=== PATIENT | female | born 1950 | race Caucasian/White ===

== ENCOUNTER → 2016-08-07 | Outpatient (CLI) | payer MEDICARE, OTHER ==
[2016-08-07 12:10] VITALS: BP 117/69; PULSE 80; RESP 16; TEMP 98.1
--- NOTE | 2016-08-08 11:53 | P.PN ---
Subjective This is follow-up visit for this patient with a history of severe and chronic low back pain secondary to lumbar degenerative disc disease lumbar facet arthropathy, we have done interventional pain management injection, agnostic medial branch block which was positive, and is currently on pain medications 1-MS Contin 15 mg every 8 hours 2-Percocet 5/325 every 6 hours 3- Neurontin 400 mg every 8 hours Patient denies any side effects of the medication, denies excessive drowsiness or sleepiness, denies suicidal ideation, and reports that the current pain medication is NOT helping To control the pain and improve activity of daily living the VAS /10 without the medications ,and it drope to /10 with the medication Physical Examinations : 1-Constitutiona : Cooperative , not in acute distress . 2-HEENT : nech ; supple , no Lymphadenopathy , no Thyromegaly , normal thyroid size . eyes : no ptosis , no icterus, no photophobia . ENT : normal of hearing , normal oropharynx , no Thrush . 3- Respiratory : Chest clear to auscultations Bilaterally , no wheezing , no Rhonchi . 4- Cardiovascular : regular rate and rhythem , S1 , S2 , no S3 , no S4. 5- Gastrointestinal : abdomen soft no tenderness , bowel sounds positive all four quadrents , no organomegally . 6- Genitourinary : Defferred . 7- neurologic : Cranial nerve II to XII intact , no focal neurological deffecit . 8-psychatric : alert , oriented X 3 , appropriate affect , intact judgment and insight . 9-Lymphatic : no Lymphadenopathy . 10- musculoskeltal : exams of the cervical spine = motor strength in the upper extremity within normal limits exams of the Lumber spine = motor strength lower extremities ,thigh and legs .5/5 deep tendon reflexes : normal Knee Jerk , normal ankle Jerk . lumber facet Loading Test positive strait leg raising test positive at 30 degree , RT ,LT , Fabere test positive RT and positive LT . Range of motion: Range of motion in flexion of the lumbar spine 30 degrees Range of motion range of motion of extension of the lumbar spine 10 Assessment and plan = - Chronic low back pain secondary to lumbar degenerative disc disease , lumbar spondylosis with facet arthropathy without myelopathy , - chronic and current use of high-risk medication (Opioids). The patient was counseled about risk of opioid use, psychological risk associated with opioids and was orally counseled to not overuse , divert,or sell dictations to take medications as prescribed only , and to restore medication in safe location , and the patient counseled against driving while using narcotic medications, and also not to use alcohol or any illicit recreational drugs, the patient's verbalized understanding that the lack of compliance will result in failure to renew narcotic prescription and possible discharge from the clinic - diagnoses, prognosis, and treatment options including but not limited to physical therapy, surgical interventions, interventional therapies , and medication management including narcotics and adjuvant medication were discussed with the patient and all The questions answered -medication management =1-MS Contin 15 mg every 8 hours dispense 90 with 1 refill 2- Percocet 5/325 every 6 hours dispense 120 with one refill 3-Neurontin 400 mg every 8 hours dispense 90 with 1 refill -procedure= scheduled patient to have radiofrequency ablation of the medial branch lumbar area L3-4/L4 5/L5-S1 we will start with the right side then we will do the left side later on Objective - Vital Signs Vital signs: Vital Signs Temp 98.1 F 08/07/16 12:04 Pulse 80 08/07/16 12:04 Resp 16 08/07/16 12:04 BP 117/69 08/07/16 12:04 Pulse Ox 98 08/07/16 12:04 Intake & Output 08/07/16 08/08/16 08/08/16 18:59 06:59 18:59 Weight 52.163 kg
== END | disposition home or self-care (01) ==
LOC: PNWHC3 11:30
PROVIDERS: ATTEND Specialist
DX: M51.36 Other intervertebral disc degeneration, lumbar region (principal); M47.816 Spondylosis without myelopathy or radiculopathy, lumbar region; M46.96 Unspecified inflammatory spondylopathy, lumbar region; Z79.891 Long term (current) use of opiate analgesic
CPT/HCPCS: 99211

== ENCOUNTER 2016-09-19 17:20 | Emergency (ER) | payer MEDICARE, OTHER ==
[2016-09-19 17:53] VITALS: BP 119/79; PULSE 99; RESP 18; TEMP 97.3
[2016-09-19] MEDS ORDERED: HYDROmorphone 1 MG/ML 1 ML SYRINGE IM STA (18:01)
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
== END 2016-09-19 18:33 | disposition home or self-care (01) ==
LOC: EC 17:20
DX: G89.29 Other chronic pain (principal); M54.5 Low back pain; M79.7 Fibromyalgia; E78.5 Hyperlipidemia, unspecified; M06.9 Rheumatoid arthritis, unspecified; M19.90 Unspecified osteoarthritis, unspecified site; D64.9 Anemia, unspecified; F41.9 Anxiety disorder, unspecified; F32.9 Major depressive disorder, single episode, unspecified; F41.0 Panic disorder [episodic paroxysmal anxiety]; Z85.3 Personal history of malignant neoplasm of breast; Z87.891 Personal history of nicotine dependence; Z79.899 Other long term (current) drug therapy; Z88.2 Allergy status to sulfonamides; Z91.040 Latex allergy status; Z88.1 Allergy status to other antibiotic agents; Z91.048 Other nonmedicinal substance allergy status
CPT/HCPCS: 99283; 96372; J1170

== ENCOUNTER → 2016-10-02 | Outpatient (CLI) | payer MEDICARE, OTHER ==
--- NOTE | 2016-10-02 12:33 | P.PN ---
Progress Note - Text Patient returns for followup for chronic back pain with radiation to both legs, although mild. Patient was recently supposed to undergo right lumbar RFA recently but got sick and it has been rescheduled to October. Patient continues on Neurontin, MSContin and Percocet medications for pain with good relief. Patient denies adverse drug effects from medications. Today, pt denies new- onset weakness, bowel/bladder incontinence, or any other signs or symptoms of cauda equina syndrome. There are no signs of acute intoxication, and no indications of medication diversion or overuse. In addition to above, 13-point review of systems is also negative for chest pain , shortness of breath, changes in vision, changes in hearing, new onset weakness , abdominal pain, diarrhea, extreme fatigue, malaise, fever, skin changes, homicidal or suicidal ideation, or bowel or bladder incontinence. Vital Signs: Reviewed in EMR Gen: WDWN, AAOx3, NAD HEENT: NCAT, EOMI, hearing grossly normal Pulm: resp unlabored Abd: soft, NT, ND Neck: supple, trachea midline ROM in flexion lumbar spine: reduced ROM in extension lumbar spine: reduced Lumbar paravertebral tenderness: + Facet loading: + bilateral, R > L SI joint tenderness: + R > L Lakhwinder's test: + R > L Straight leg raise: neg Lower extremity: decreased ROM dorsiflexion/plantarflexion strength, hip flexion/extension, and knee flexion/extension secondary to pain Neuro: CN II-XII grossly intact, muscle strength lower extremities PRESERVED Imaging: Reviewed in EMR Assessment: 1. lumbar spondylosis without myelopathy 2. SI joint dysfunction 3. chronic pain syndrome Plan: 1. Explanation: Opioid and psychological risk scores were reviewed. Diagnoses , prognoses, and multiple treatment options including but not limited to physical therapy, interventional therapies, adjuvant medical therapies, narcotic medication therapies, and surgery were discussed with the patient and all questions were answered to the patient's satisfaction. 2. Opioid agreement: Patient has previously signed narcotic agreement, and was orally counseled to not overuse, abuse, divert, or cell medications, and to take them as prescribed by only 1 healthcare provider. The patient was also counseled to store opioid medications in a safe and preferably locked location. Patient was also counseled against driving or operating heavy equipment while using narcotic medications and also to not use alcohol or any illicit or recreational drugs. The patient verbalized understanding that lack of compliance with any of the above and likely result in failure to renew narcotic prescriptions, possible discharge from the clinic, and possible legal ramifications thereafter if indicated. 3. Counseling: The patient was counseled extensively on BODY MASS INDEX, EXERCISE. Specifically, the patient was instructed regarding the importance of weight control and exercise in the context of both chronic pain and overall health. 4. Procedures: R lumbar RFA as scheduled 5. Consultations: None 6. Investigations: None 7. Medications: MSContin 15 mg #90 with one refill, Percocet 5/325 #120 with one refill, Neurontin 400 mg #90 with two refills 8. Disposition: f/u for procedure as scheduled PQRS measures: 1-Patient's medications are documented in the chart. 2-Tobacco use is negative 3-Patient has not had a pneumococcal vaccine. 4-Advanced care planning discussed, patient unable to give. 5-Opioid contract signed with the patient. 6-Pain positive, follow-up visit or procedure scheduled 7-Patient's blood pressure measured and documented, and patient will follow up with the primary care due to hypertension. 8-Patient's weight was measured, and body mass index within the normal limits 9-Patient WAS NOT identified as an unhealthy alcohol user.
[2016-10-02 13:25] VITALS: BP 142/88; PULSE 69; RESP 16; TEMP 98.2
== END | disposition home or self-care (01) ==
LOC: PNWHC3 11:59
PROVIDERS: ATTEND Anesthesiology
DX: M47.816 Spondylosis without myelopathy or radiculopathy, lumbar region (principal); G89.4 Chronic pain syndrome; Z79.899 Other long term (current) drug therapy; Z79.891 Long term (current) use of opiate analgesic
CPT/HCPCS: 80307; G0463; 80373; 99211

== ENCOUNTER 2016-10-18 09:07 | Day surgery (SDC) | payer MEDICARE, OTHER ==
[2016-10-16 15:56] VITALS: BMI 20.5
[~2016-10-18 09:07] MED LIST: LACTATED RINGERS 1,000 ML IV ONE
[2016-10-18 09:39] VITALS: TEMP 97.9
[2016-10-18] MEDS ORDERED: LIDOCAINE 1% 20 ML VIAL (10MG/ML) FOR IV START INTRADERMA ONE (09:40)
[2016-10-18] MEDS ORDERED: fentaNYL (PF) 50 MCG/ML 2 ML AMP ONE (10:14)
[2016-10-18] MEDS ORDERED: MIDAZOLAM 2 MG/2 ML VIAL ONE (10:14)
[2016-10-18] MEDS ORDERED: TRIAMCINOLONE ACETONIDE 40 MG/ML 1 ML VIAL ONE (10:14)
[2016-10-18] MEDS ORDERED: BUPIVACAINE (PF) 0.5% 30 ML VIAL ONE (10:14)
--- NOTE | 2016-10-18 10:42 | FL ---
EXAMINATION TYPE: FL guided pain mgmt statistic DATE OF EXAM: 10/18/2016 10:35 AM HISTORY: Pain RF lumbar R side 3 levels, 8sec fl time
--- NOTE | 2016-10-18 10:43 | P.PCN ---
Date of Procedure: 10/18/16 Procedure(s) Performed: PREOPERATIVE DIAGNOSIS: 1-Lumbar Spondylosis with Facet Arthropathy without myelopathy. POSTOPERATIVE DIAGNOSIS: 1- Lumbar Spondylosis with Facet Arthropathy without myelopathy. PROCEDURES : Right Radiofrequency thermocoagulation L2-3 ,, L3-L4, L4-L5, medial branch, with fluoroscopic guidance ANESTHESIA: IV sedation with versed 2 mg and fentaneyl 100 mcg and local infiltration with lidocaine 1% 6 ml EBL: Minimal PROCEDURE INDICATION: The patient with low back pain secondary to lumbar facet arthropathy who had more than 50% relief of her pain with previous diagnostic lumbar medial branch block with bupivacaine. PROCEDURE DESCRIPTION / TECHNIQUE: The patient was seen and identified in the preoperative area. Risks, benefits, complications, including but not limited to risk of infection ,bleeding , allergic reactions to the medications and no complete pain releife , and alternatives were discussed with the patient, the patient agreed to proceed with the procedure and signed the consent. IV was started. Vital signs remained stable throughout the procedure. Patient was taken to the OR and time out was completed. The patient was placed in the prone position on the procedure table. The lumber area was prepped and draped in the usual sterile fashion. . Vital signs were closely monitored during the procedure .IV sedation was used during the procedure to decrease patients anxiety. Using AP and then oblique fluoroscopy, the ``eye of the Duane dog corresponding to the connection between the superior and transverse articular processes of right L2 , L3, L4, were identified, marked, and localized with 1 % lidocaine. Subsequently, a 18 [id number] radiofrequency cannula with a 10- mm active tip was advanced guided by fluoroscopy to each of the ``eyes of the Duane dog at right L2 , L3, L4,. Each site then underwent sensory testing at 50 Hz and 0 to 1 volt and motor testing at 2.5 Hz and 0 to 3 volt with local stimulation, but no radicular symptoms down the legs. Thereafter the right L2-3 , L3-4, L4-5, sites underwent radiofrequency thermocoagulation at 80 degrees celsius for 90 seconds after injecting 0.5 ml of PF lidocaine 1%. then After the thermocoagulation done , 1 ml of the block solution containing Kenalog 40 mg and 3 ml of marain 0.5% was injected at the right L2 -3 , L3-4 , L4-5 ,, levels after negative aspiration of CSF and blood and with no paresthesias. Cannulas were retracted while injecting lidocaine 1% until the needle is out. At the end of the procedure, the skin was cleansed and bandages were applied. COMPLICATIONS: No acute complications. DISPOSITION / PLANS: The patient was placed in a supine position and transferred to the recovery area in a stable condition for observation and was discharged from the recovery room after meeting discharge criteria. Home discharge instructions given to the patient by the staff. The patient was reexamined prior to discharge. The patient will schedule a follow up in the clinic in 2-4 weeks. We will do the radiofrequency on the left side at L2-3/ L3 - 4 /L4 5
[2016-10-18] MEDS ORDERED: LACTATED RINGERS 1,000 ML IV ONE ×2 (10:48)
[2016-10-18 11:08] VITALS: BP 130/74; PULSE 58; RESP 16
[2016-10-18] MEDS ORDERED: IV FLUID CONTINUATION 1,000 ML IV ONE (11:25)
== END 2016-10-18 11:31 | disposition home or self-care (01) ==
LOC: ORPAIN 09:07
PROVIDERS: ATTEND Specialist
DX: M47.816 Spondylosis without myelopathy or radiculopathy, lumbar region (principal); M46.96 Unspecified inflammatory spondylopathy, lumbar region; Z88.2 Allergy status to sulfonamides; Z88.1 Allergy status to other antibiotic agents; Z91.040 Latex allergy status
CPT/HCPCS: 64635; 64636; 99152; J2250; J3301; J3010

== ENCOUNTER 2016-12-13 09:01 | Day surgery (SDC) | payer MEDICARE, OTHER ==
[2016-12-08 16:08] VITALS: BMI 20.5
[2016-12-13] MEDS ORDERED: LACTATED RINGERS 1,000 ML IV ONE (09:31)
[2016-12-13 09:32] VITALS: TEMP 98.2
[2016-12-13] MEDS ORDERED: LIDOCAINE 1% 20 ML VIAL (10MG/ML) FOR IV START INTRADERMA ONE (09:32)
[2016-12-13] MEDS ORDERED: TRIAMCINOLONE ACETONIDE 40 MG/ML 1 ML VIAL ONE (09:43)
[2016-12-13] MEDS ORDERED: fentaNYL (PF) 50 MCG/ML 2 ML AMP ONE (09:43)
[2016-12-13] MEDS ORDERED: MIDAZOLAM 2 MG/2 ML VIAL ONE (09:43)
--- NOTE | 2016-12-13 10:27 | P.PCN ---
Date of Procedure: 12/13/16 Preoperative Diagnosis: Postoperative Diagnosis: Procedure(s) Performed: Implants: Surgeon: David Doran Pathology: none sent Condition: stable Disposition: PACU Indications for Procedure: Operative Findings: Description of Procedure: PREOPERATIVE DIAGNOSIS: Lumbar spondylosis without myelopathy and facet arthropathy POSTOPERATIVE DIAGNOSIS: Lumbar spondylosis without myelopathy and facet arthropathy PROCEDURES: Left Radiofrequency thermocoagulation, L2, L3, and L4 medial branch , with fluoroscopic guidance. ANESTHESIA: 1% lidocaine plain; Conscious sedation with versed/fentanyl EBL: Minimal PROCEDURE INDICATION: The patient with low back pain secondary to lumbar arthropathy who had more than 50% relief of pain with previous diagnostic lumbar medial branch block with bupivacaine. Patient presents for RFA today; no use of blood thinners. PROCEDURE DESCRIPTION / TECHNIQUE: The patient was seen and identified in the preoperative area. Risks, benefits, complications, and alternatives were discussed with the patient (including but not limited to incomplete pain relief , bleeding, infection, nerve damage, and allergies to medications), the patient agreed to proceed with the procedure and signed the consent after all questions were answered. Patient was taken to the OR and time out was completed to verify proper patient , position, laterality of pain, and allergies. Pt was placed in the prone position. IV was started. Vital signs remained stable throughout the procedure. A pillow was placed under the patients chest to decrease lordosis. The lumbosacral area was prepped and draped in the usual sterile fashion. Vital signs were closely monitored during the procedure. Conscious sedation was used during the procedure to decrease patients anxiety. Using AP and then oblique fluoroscopy, the eye of the Duane dog corresponding to the connection between the superior and transverse articular processes of left L3, L4 and L5 vertebral bodies were identified, marked, and localized with 1% lidocaine. Subsequently, a 20 gauge, 100-mm radiofrequency cannula with a 10-mm active tip was advanced guided by fluoroscopy to each of the eyes of the Duane dog at left L2, L3, and L4 medial branches. Each site then underwent sensory testing at 50 Hz and 0 to 1 volt and motor testing at 2 Hz and 0 to 3 volt with local stimulation, but no radicular symptoms down the legs. Thereafter the left L2, L3, and L4 medial branches medial branch sites underwent radiofrequency thermocoagulation at 80 degrees Celsius for 90 seconds after injecting 0.5 ml of PF lidocaine 1%. After thermocoagulation, 1 ml of the block solution containing Kenalog 40 mg and 2 mL of preservative-free normal saline was injected at the left L2, L3, and L4 medial branch levels after negative aspiration of CSF and blood and with no paresthesias. Cannulas were retracted while injecting lidocaine 1% until the needles were removed. At the end of the procedure, the skin was cleansed and bandages were applied. COMPLICATIONS: No acute complications. DISPOSITION / PLANS: The patient was placed in a supine position and transferred to the recovery area in a stable condition for observation and was discharged from the recovery room after meeting discharge criteria. Home discharge instructions given to the patient by the staff. The patient was reexamined prior to discharge and there were no issues. Patient will follow up in the clinic in approximately 4 weeks for further evaluation.
[2016-12-13] MEDS ORDERED: IV FLUID CONTINUATION 1,000 ML IV ONE (10:33)
[2016-12-13 10:37] VITALS: RESP 18
--- NOTE | 2016-12-13 10:40 | FL ---
EXAMINATION TYPE: FL guided pain mgmt statistic DATE OF EXAM: 12/13/2016 COMPARISON: NONE HISTORY: LEFT LUMBAR RAD FREQ TECHNIQUE: Fluoroscopy. FINDINGS: LEFT LUMBAR RAD FREQ. 44 SEC FL TIME. 4 IMAGES. IMPRESSION: As Above.
[2016-12-13 10:52] VITALS: BP 122/74; PULSE 74
== END 2016-12-13 11:05 | disposition home or self-care (01) ==
LOC: ORPAIN 09:01
PROVIDERS: ATTEND Anesthesiology
DX: G89.29 Other chronic pain (principal); M47.816 Spondylosis without myelopathy or radiculopathy, lumbar region; M46.96 Unspecified inflammatory spondylopathy, lumbar region; I10 Essential (primary) hypertension; E78.5 Hyperlipidemia, unspecified; Z79.82 Long term (current) use of aspirin; Z79.891 Long term (current) use of opiate analgesic; Z79.899 Other long term (current) drug therapy; Z88.2 Allergy status to sulfonamides; Z88.1 Allergy status to other antibiotic agents; Z91.040 Latex allergy status
CPT/HCPCS: 64635; 64636 ×2; 99152; 99153; J2250; J3301; J3010

== ENCOUNTER → 2017-01-10 | Outpatient (CLI) | payer MEDICARE, OTHER ==
[2017-01-10 11:58] VITALS: RESP 18; TEMP 97.7
--- NOTE | 2017-01-10 12:04 | P.PN ---
Progress Note - Text Patient returns for followup for chronic back and mid-back pain with radiation to both legs, although mild. Patient recently underwent bilateral lumbar RFA with good relief of back pain but is now complaining of pain in her mid-back that "feels similar" to low back pain. Patient continues on Neurontin, MSContin and Percocet medications for pain with good relief but last UDS positive only for tramadol and patient states that she ran out of her pills on Sunday, January 06, because she took extra narcotics secondary to an ear infection. Patient denies adverse drug effects from medications. Today, pt denies new-onset weakness, bowel/bladder incontinence, or any other signs or symptoms of cauda equina syndrome. There are no signs of acute intoxication, and no indications of medication diversion. In addition to above, 13-point review of systems is also negative for chest pain , shortness of breath, changes in vision, changes in hearing, new onset weakness , abdominal pain, diarrhea, extreme fatigue, malaise, fever, skin changes, homicidal or suicidal ideation, or bowel or bladder incontinence. Vital Signs: Reviewed in EMR Gen: WDWN, AAOx3, NAD HEENT: NCAT, EOMI, hearing grossly normal Pulm: resp unlabored Abd: soft, NT, ND Neck: supple, trachea midline TTP thoracic spine paravertebral +thoracic facet loading worst in mid-thoracic spine Neuro: CN II-XII grossly intact, muscle strength lower extremities PRESERVED Imaging: Reviewed in EMR Assessment: 1. lumbar spondylosis without myelopathy 2. SI joint dysfunction 3. chronic pain syndrome 4. thoracic spondylosis Plan: 1. Explanation: Opioid and psychological risk scores were reviewed. Diagnoses , prognoses, and multiple treatment options including but not limited to physical therapy, interventional therapies, adjuvant medical therapies, narcotic medication therapies, and surgery were discussed with the patient and all questions were answered to the patient's satisfaction. 2. Opioid agreement: Patient has previously signed narcotic agreement, and was orally counseled to not overuse, abuse, divert, or cell medications, and to take them as prescribed by only 1 healthcare provider. The patient was also counseled to store opioid medications in a safe and preferably locked location. Patient was also counseled against driving or operating heavy equipment while using narcotic medications and also to not use alcohol or any illicit or recreational drugs. The patient verbalized understanding that lack of compliance with any of the above and likely result in failure to renew narcotic prescriptions, possible discharge from the clinic, and possible legal ramifications thereafter if indicated. 3. Counseling: The patient was counseled extensively on BODY MASS INDEX, EXERCISE. Specifically, the patient was instructed regarding the importance of weight control and exercise in the context of both chronic pain and overall health. 4. Procedures: none for now 5. Consultations: None 6. Investigations: MRI thoracic spine 7. Medications: MSContin 15 mg #90 with one refill, Percocet 5/325 #120 with one refill, Neurontin 400 mg #90 with two refills 8. Disposition: f/u for re-eval in 8 weeks. Please UDS at next visit. I told patient very clearly that, if she runs out of medications early again or if she has any more equivocal UDS results, we will no longer be able to prescribe narcotics any longer. She verbalized understanding. PQRS measures: 1-Patient's medications are documented in the chart. 2-Tobacco use is negative 3-Patient has not had a pneumococcal vaccine. 4-Advanced care planning discussed, patient unable to give. 5-Opioid contract signed with the patient. 6-Pain positive, follow-up visit or procedure scheduled 7-Patient's blood pressure measured and documented, and patient will follow up with the primary care due to hypertension. 8-Patient's weight was measured, and body mass index within the normal limits 9-Patient WAS NOT identified as an unhealthy alcohol user.
== END ==
LOC: PNWHC3 11:15
PROVIDERS: ATTEND Anesthesiology
DX: M47.816 Spondylosis without myelopathy or radiculopathy, lumbar region (principal); M53.3 Sacrococcygeal disorders, not elsewhere classified; M47.814 Spondylosis without myelopathy or radiculopathy, thoracic region; Z79.891 Long term (current) use of opiate analgesic; Z79.899 Other long term (current) drug therapy
CPT/HCPCS: 99211

== ENCOUNTER 2017-03-02 12:45 | Emergency (ER) | payer MEDICARE, OTHER ==
--- NOTE | 2017-03-02 13:05 | ED ---
General Adult HPI - General Chief complaint: Fall Stated complaint: Fall-Head Injury Time Seen by Provider: 03/02/17 12:54 Source: patient, RN notes reviewed Mode of arrival: ambulatory Limitations: no limitations - History of Present Illness Initial comments: Patient 67-year-old female who presents emergency room today with a chief complaint of a fall that occurred approximate hour ago. She does admit that she was walking into her house when a different pathway over some sand and believes that her flip-flop got caught and she fell down onto the left knee and also hit the right side of her face and head. She states she did not lose consciousness. She has mid to headache. Does admit some mild neck pain. Patient also admits to some left knee pain with some superficial abrasions over the anterior knee and right hand. She denies any other complaints or associated symptoms at this time. Patient denies any recent fever, chills, shortness of breath, chest pain, abdominal pain, nausea or vomiting, numbness or tingling, dysuria or hematuria, constipation or diarrhea, visual changes, or any other complaints. - Related Data Home Medications Medication Instructions Recorded Confirmed Folic Acid 1 mg PO DAILY 10/17/13 03/02/17 Atorvastatin [Lipitor] 20 mg PO DAILY 09/21/14 03/02/17 Calcium Carbonate/Vitamin D3 2 tab PO DAILY 05/16/15 03/02/17 [Calcium 600-Vit D3 400 Tablet] Ascorbic Acid [Vitamin C] 500 mg PO DAILY 12/31/15 03/02/17 buPROPion XL [Wellbutrin XL] 150 mg PO DAILY 02/04/16 03/02/17 Lidocaine 5% Oint [Xylocaine 5% 1 applic TOPICAL TID PRN 04/13/16 03/02/17 Oint] Cyanocobalamin [Vitamin B-12] 1 tab PO DAILY 06/08/16 03/02/17 Aspirin/Acetaminophen/Caffeine 2 tab PO DAILY PRN 11/02/16 03/02/17 [Excedrin Migraine Caplet] Venlafaxine HCl [Effexor XR] 225 mg PO DAILY 03/02/17 03/02/17 Previous Rx's Medication Instructions Recorded Gabapentin [Neurontin] 400 mg PO Q8H #90 cap 01/10/17 Morphine Sulfate ER [Ms Contin 15 mg PO Q8H #90 tab 01/10/17 15Mg] oxyCODONE-APAP 5-325MG [Percocet 1 tab PO Q6HR PRN #120 tab 01/10/17 5-325 mg] Ondansetron Odt [Zofran ODT] 4 mg PO Q8HR PRN #10 tab 03/02/17 Allergies Allergy/AdvReac Type Severity Reaction Status Date / Time Sulfa (Sulfonamide Allergy Severe Rash/Hives Verified 03/02/17 13:11 Antibiotics) Tetracyclines Allergy Severe Rash/Hives Verified 03/02/17 13:11 latex Allergy SKIN RED Verified 03/02/17 13:11 AND IRRITATED LAUNDRY SOAPS Allergy Rash/Hives Uncoded 03/02/17 12:51 Review of Systems ROS Statement: Those systems with pertinent positive or pertinent negative responses have been documented in the HPI. ROS Other: All systems not noted in ROS Statement are negative. Past Medical History Past Medical History: Cancer, Fibromyalgia, GI Bleed, Hyperlipidemia, Musculoskeletal Disorder, Osteoarthritis (OA), Rheumatoid Arthritis (RA) Additional Past Medical History / Comment(s): HX MIGRAINES. CHRONIC BACK PAIN, DDD. CERVICAL AND BREAST CA. USES CANE PRN. Anemia, HX GI BLEED. GI BLEED 2014, THEN HAD BRYCE PROC. ONGOING DIARRHEA ON/OFF FOR YEARS; HX COLON POLYPS. History of Any Multi-Drug Resistant Organisms: None Reported Past Surgical History: Back Surgery, Ear Surgery, Hernia Repair, Hysterectomy, Orthopedic Surgery, Tonsillectomy Additional Past Surgical History / Comment(s): CERVICAL FUSION; LUMBAR FUSION; ORIF of Humerus, WITH ABDIFATAH/SCREWS. BREAST REDUCTION 2009. LT LUMPECTOMY X2, 2ND IN 2003 WAS CA. RT TYMPANOPLASTY. D&C. EXC Cataract RITU. BRYCE FUNDLAPLASTY for hernia. Left breast mastectomy 2016 Past Anesthesia/Blood Transfusion Reactions: No Reported Reaction, Family History of Problems w/ Anesthesia Additional Past Anesthesia/Blood Transfusion Reaction / Comment(s): SISTER TAKES LONGER TO AWAKEN, YEARS AGO. Past Psychological History: Anxiety, Depression, Panic Disorder, PTSD Smoking Status: Former smoker Past Alcohol Use History: None Reported Past Drug Use History: None Reported - Past Family History Father Family Medical History: Congestive Heart Failure (CHF), COPD Additional Family Medical History / Comment(s): at age 72 Mother Family Medical History: Myocardial Infarction ([place]) Additional Family Medical History / Comment(s): 1987 age 57 mi General Exam - General Exam Comments Initial Comments: General: The patient is awake and alert, in no distress, and does not appear acutely ill. Eye: Pupils are equal, round and reactive to light, extra-ocular movements are intact. No nystagmus. There is normal conjunctiva bilaterally. No signs of icterus. Ears, nose, mouth and throat: There are moist mucous membranes and no oral lesions. Neck: The neck is supple, there is no tenderness or JVD. Cardiovascular: There is a regular rate and rhythm. No murmur, rub or gallop is appreciated. Respiratory: Lungs are clear to auscultation, respirations are non-labored, breath sounds are equal. No wheezes, stridor, rales, or rhonchi. Gastrointestinal: Soft, non-distended, non-tender abdomen without masses or organomegaly noted. There is no rebound or guarding present. No CVA tenderness. Bowel sounds are unremarkable. Musculoskeletal: Superficial abrasion to the right hand over the thenar eminence. Superficial abrasion over the anterior left knee. Shows limited range of motion with flexion at the left needed pain. Mild tenderness to the anterior aspect. No tenderness to the left hip, left ankle. No other bony tenderness to the extremities. Patient has normal appearance of cervical, thoracic, lumbar spine. No specific bony tenderness to the cervical spine. She does admit that her some certain movements. No tenderness over thoracic or lumbar spine. Strength 5/5. Sensation intact. Pulses equal bilaterally 2+. Neurological: A&O x 3. CN II-XII intact, There are no obvious motor or sensory deficits. Coordination appears grossly intact. Speech is normal. Skin: Skin is warm and dry and no rashes or lesions are noted. Psychiatric: Cooperative, appropriate mood & affect, normal judgment. Limitations: no limitations Course Vital Signs 03/02/17 12:47 Temperature 98.4 F Pulse Rate 103 H Respiratory 20 Rate Blood Pressure 117/78 O2 Sat by Pulse 98 Oximetry Medical Decision Making - Medical Decision Making Patient's x-ray of the left knee is negative for any acute fracture dislocation. Patient's CT of the head and neck are negative for any acute abnormalities as well. Results were discussed with the patient. Patient will be discharged home. She can feel a little nauseated here was given Zofran ODT. Sinuses symptoms of concussion were discussed with the patient. Patient feeling better. Will be discharged advised return for any other concerns. Disposition Clinical Impression: Concussion, Fall Disposition: HOME SELF-CARE Condition: Good Instructions: Concussion (ED) Additional Instructions: Please use medication as discussed. Please follow-up with family doctor in the next 2 days of symptoms have not improved. Please return to emergency room if the symptoms increase or worsen or for any other concerns. Prescriptions: Ondansetron Odt [Zofran ODT] 4 mg PO Q8HR PRN #10 tab PRN Reason: Nausea Referrals: Easton Tripathi DO [Primary Care Provider] - 1-2 days Time of Disposition: 13:56
--- NOTE | 2017-03-02 13:44 | XR ---
EXAMINATION TYPE: XR knee complete LT DATE OF EXAM: 03/02/2017 COMPARISON: NONE HISTORY: Pain TECHNIQUE: Four views are submitted. FINDINGS: Arthropathy of the knee noted pattern suggestive of osteoarthritis. Small amount of fluid in the supr apatellar bursa. Osseous structures are intact. No acute fracture seen. Diffuse osteopenia. IMPRESSION: 1. No acute fracture or dislocation. 2. Correlate for osteoarthritis
--- NOTE | 2017-03-02 13:45 | CT ---
EXAMINATION TYPE: CT brain emir doss DATE OF EXAM: 03/02/2017 COMPARISON: 09/12/2015 HISTORY: Fall-head injury CT DLP: 1547 mGycm. Automated Exposure Control for Dose Reduction was Utilized. TECHNIQUE: CT scan of the head and cervical spine are performed without contrast. FINDINGS: There is no acute intracranial hemorrhage, mass effect, or midline shift identified. The ventricles and sulci are within symmetrically prominent compatible with age-related atrophy. The gl obes are intact and the visualized sinuses are clear. Cervical spine is visualized in its entirety from C1 through upper thoracic levels and demonstrates s atisfactory alignment without evidence of acute fracture or dislocation. Cervical fusion of C3-5 is p resent anteriorly with no evidence of fracture of the hardware or malalignment. Multilevel uncoverteb ral hypertrophy and facet arthropathy are seen, mild in degree without significant spinal canal steno sis. Prevertebral soft tissue appears within normal limits. The C1-C2 articulation is unremarkable. Lung apices remain clear. IMPRESSION: 1. There is no acute fracture or dislocation evident in the cervical spine. Anterior cervical fusion of C3-5 without hardware fracture or malalignment. 2. No acute intracranial hemorrhage, mass effect, or midline shift is seen. 3. Multilevel mild degenerative disc disease without spinal canal stenosis.
[2017-03-02] MEDS ORDERED: ONDANSETRON ODT 4 MG TAB PO STA (13:52)
[2017-03-02 14:19] VITALS: BP 115/67; PULSE 82; RESP 18
[2017-03-02] MEDS ORDERED: oxyCODONE-APAP 5-325MG 1 EACH TAB PO STA (14:21)
[2017-03-02 14:43] VITALS: TEMP 98
== END 2017-03-02 14:42 | disposition home or self-care (01) ==
LOC: EC 12:45
DX: S06.0X1A Concussion with loss of consciousness of 30 minutes or less, initial encounter (principal); S60.511A Abrasion of right hand, initial encounter; S80.212A Abrasion, left knee, initial encounter; M54.2 Cervicalgia; E78.5 Hyperlipidemia, unspecified; D64.9 Anemia, unspecified; F32.9 Major depressive disorder, single episode, unspecified; F41.0 Panic disorder [episodic paroxysmal anxiety]; Z87.891 Personal history of nicotine dependence; Z79.899 Other long term (current) drug therapy; Z88.1 Allergy status to other antibiotic agents; Z88.2 Allergy status to sulfonamides; Z91.040 Latex allergy status; Z91.048 Other nonmedicinal substance allergy status; Z85.3 Personal history of malignant neoplasm of breast; Z85.41 Personal history of malignant neoplasm of cervix uteri; Z90.12 Acquired absence of left breast and nipple; Z90.710 Acquired absence of both cervix and uterus; Z98.890 Other specified postprocedural states; W18.09XA Striking against other object with subsequent fall, initial encounter; Y92.89 Other specified places as the place of occurrence of the external cause; Y93.01 Activity, walking, marching and hiking
CPT/HCPCS: 70450; 72125; 99284

== ENCOUNTER 2017-03-13 10:36 | Inpatient (IN) | payer MEDICARE, OTHER ==
--- NOTE | 2017-03-13 11:06 | ED ---
Syncope HPI - General Source: patient, RN notes reviewed Mode of arrival: wheelchair Limitations: no limitations <Shady Prescott - Last Filed: 03/13/17 13:01> <Rod Herrera - Last Filed: 03/13/17 13:32> - General Chief Complaint: Syncope Stated Complaint: syncope Time Seen by Provider: 03/13/17 10:57 - History of Present Illness Initial Comments: 67-year-old female presents emergency Department with chief complaint of syncopal episode. Patient states that she was walking and then just passed out. Patient states she's had problems with this in the past secondary to anemia. Patient states it only has left knee pain at this time. There is an abrasion. Patient denies any headache, dizziness, chest pain or shortness of breath. Patient states she has had some, dizziness or last few days where she feels off balance. Patient denies any nausea, vomiting diarrhea constipation. Patient states she has chronic pain in which she takes pain medications for. She does admit been out of his pain medications. (Shady Prescott) - Related Data Home Medications Medication Instructions Recorded Confirmed Folic Acid 1 mg PO DAILY 10/17/13 03/13/17 Atorvastatin [Lipitor] 20 mg PO DAILY 09/21/14 03/13/17 Calcium Carbonate/Vitamin D3 2 tab PO DAILY 05/16/15 03/13/17 [Calcium 600-Vit D3 400 Tablet] Ascorbic Acid [Vitamin C] 500 mg PO DAILY 12/31/15 03/13/17 buPROPion XL [Wellbutrin XL] 150 mg PO DAILY 02/04/16 03/13/17 Lidocaine 5% Oint [Xylocaine 5% 1 applic TOPICAL TID PRN 04/13/16 03/13/17 Oint] Cyanocobalamin [Vitamin B-12] 1 tab PO DAILY 06/08/16 03/13/17 Aspirin/Acetaminophen/Caffeine 2 tab PO DAILY PRN 11/02/16 03/13/17 [Excedrin Migraine Caplet] Venlafaxine HCl [Effexor XR] 225 mg PO DAILY 03/02/17 03/13/17 Previous Rx's Medication Instructions Recorded Gabapentin [Neurontin] 400 mg PO Q8H #90 cap 01/10/17 Morphine Sulfate ER [Ms Contin 15 mg PO Q8H #90 tab 07/26/17 15Mg] oxyCODONE-APAP 5-325MG [Percocet 1 tab PO Q6HR PRN #120 tab 01/10/17 5-325 mg] Ondansetron Odt [Zofran ODT] 4 mg PO Q8HR PRN #10 tab 03/02/17 Allergies Allergy/AdvReac Type Severity Reaction Status Date / Time Sulfa (Sulfonamide Allergy Severe Rash/Hives Verified 03/13/17 10:51 Antibiotics) Tetracyclines Allergy Severe Rash/Hives Verified 03/13/17 10:51 latex Allergy SKIN RED Verified 03/13/17 10:51 AND IRRITATED LAUNDRY SOAPS Allergy Rash/Hives Uncoded 03/13/17 10:41 Review of Systems ROS Other: All systems not noted in ROS Statement are negative. <Shady Prescott - Last Filed: 03/13/17 13:01> ROS Other: All systems not noted in ROS Statement are negative. <Rod Herrera - Last Filed: 03/13/17 13:32> ROS Statement: Those systems with pertinent positive or pertinent negative responses have been documented in the HPI. Past Medical History Past Medical History: Cancer, Fibromyalgia, GI Bleed, Hyperlipidemia, Musculoskeletal Disorder, Osteoarthritis (OA), Rheumatoid Arthritis (RA) Additional Past Medical History / Comment(s): HX MIGRAINES. CHRONIC BACK PAIN, DDD. CERVICAL AND BREAST CA. USES CANE PRN. Anemia, HX GI BLEED. GI BLEED 2014, THEN HAD BRYCE PROC. ONGOING DIARRHEA ON/OFF FOR YEARS; HX COLON POLYPS. History of Any Multi-Drug Resistant Organisms: None Reported Past Surgical History: Back Surgery, Ear Surgery, Hernia Repair, Hysterectomy, Orthopedic Surgery, Tonsillectomy Additional Past Surgical History / Comment(s): CERVICAL FUSION; LUMBAR FUSION; ORIF of Humerus, WITH ABDIFATAH/SCREWS. BREAST REDUCTION 2009. LT LUMPECTOMY X2, 2ND IN 2003 WAS CA. RT TYMPANOPLASTY. D&C. EXC Cataract RITU. BRYCE FUNDLAPLASTY for hernia. Left breast mastectomy 2016 Past Anesthesia/Blood Transfusion Reactions: No Reported Reaction, Family History of Problems w/ Anesthesia Additional Past Anesthesia/Blood Transfusion Reaction / Comment(s): SISTER TAKES LONGER TO AWAKEN, YEARS AGO. Past Psychological History: Anxiety, Depression, Panic Disorder, PTSD Smoking Status: Former smoker Past Alcohol Use History: None Reported Past Drug Use History: None Reported - Past Family History Father Family Medical History: Congestive Heart Failure (CHF), COPD Additional Family Medical History / Comment(s): at age 72 Mother Family Medical History: Myocardial Infarction ([place]) Additional Family Medical History / Comment(s): 1987 age 57 mi <Shady Prescott - Last Filed: 03/13/17 13:01> General Exam Limitations: no limitations General appearance: alert, in no apparent distress Head exam: Present: atraumatic, normocephalic, normal inspection Eye exam: Present: normal appearance, PERRL, EOMI. Absent: scleral icterus, conjunctival injection, periorbital swelling ENT exam: Present: normal exam, normal oropharynx, mucous membranes moist, TM's normal bilaterally, normal external ear exam Neck exam: Present: normal inspection, full ROM. Absent: tenderness, meningismus, lymphadenopathy Respiratory exam: Present: normal lung sounds bilaterally. Absent: respiratory distress, wheezes, rales, rhonchi, stridor Cardiovascular Exam: Present: regular rate, normal rhythm, normal heart sounds. Absent: systolic murmur, diastolic murmur, rubs, gallop, clicks Extremities exam: Present: other (Left knee there is an abrasion noted, pain with palpation range of motion. Neurovascular intact.) Neurological exam: Present: alert, oriented X3, CN II-XII intact, reflexes normal. Absent: motor sensory deficit Skin exam: Present: warm, dry, intact, normal color. Absent: rash <Shady Prescott - Last Filed: 03/13/17 13:01> EKG Findings - EKG Comments: EKG Findings:: EKG performed at 11:21 normal sinus rhythm with a rate of 81. W[place] interval 142. QRS duration 72 QT/QTC 356/413 <Shady Prescott - Last Filed: 03/13/17 13:01> Medical Decision Making - Lab Data Result diagrams: 03/13/17 11:30 03/13/17 11:30 <Shady Prescott - Last Filed: 03/13/17 13:01> - Lab Data Result diagrams: 03/13/17 11:30 03/13/17 11:30 <Rod Herrera - Last Filed: 03/13/17 13:32> - Medical Decision Making I did personally do a [id number] evaluation the patient did discuss the findings with her. Patient states she was reaching up when she passed out she believes she was out for at least 20 seconds of the longer. She did sustain an injury to her left knee a patellar fracture. She had no head or neck pain. I did discuss case with Dr. Flannery. Patient will be admitted (Rod Herrera) - Lab Data Lab Results 03/13/17 03/13/17 03/13/17 Range/Units 11:30 11:30 11:30 WBC 5.2 (3.8-10.6) k/uL RBC 4.42 (3.80-5.40) m/uL Hgb 13.9 (11.4-16.0) gm/dL Hct 44.0 (34.0-46.0) % MCV 99.5 (80.0-100.0) fL MCH 31.4 (25.0-35.0) pg MCHC 31.5 (31.0-37.0) g/dL RDW 13.7 (11.5-15.5) % Plt Count 315 (150-450) k/uL Neutrophils % 59 % Lymphocytes % 28 % Monocytes % 9 % Eosinophils % 2 % Basophils % 1 % Neutrophils # 3.1 (1.3-7.7) k/uL Lymphocytes # 1.4 (1.0-4.8) k/uL Monocytes # 0.5 (0-1.0) k/uL Eosinophils # 0.1 (0-0.7) k/uL Basophils # 0.0 (0-0.2) k/uL PT (9.0-12.0) sec INR (<1.2) APTT (22.0-30.0) sec Sodium 143 (137-145) mmol/L Potassium 4.4 (3.5-5.1) mmol/L Chloride 108 H (98-107) mmol/L Carbon Dioxide 23 (22-30) mmol/L Anion Gap 12 mmol/L BUN 16 (7-17) mg/dL Creatinine 0.66 (0.52-1.04) mg/dL Est GFR (MDRD) Af Amer >60 (>60 ml/min/1.73 sqM) Est GFR (MDRD) Non-Af >60 (>60 ml/min/1.73 sqM) Glucose 95 (74-99) mg/dL Calcium 9.9 (8.4-10.2) mg/dL Magnesium 2.0 (1.6-2.3) mg/dL Total Bilirubin 0.3 (0.2-1.3) mg/dL AST 25 (14-36) U/L ALT 34 (9-52) U/L Alkaline Phosphatase 122 (38-126) U/L Total Creatine Kinase <20 L (30-135) U/L CK-MB (CK-2) 0.3 (0.0-2.4) ng/mL CK-MB (CK-2) Rel Index Troponin I <0.012 (0.000-0.034) ng/mL Total Protein 7.0 (6.3-8.2) g/dL Albumin 4.2 (3.5-5.0) g/dL Urine Color Urine Appearance (Clear) Urine pH (5.0-8.0) Ur Specific Broad Top (1.001-1.035) Urine Protein (Negative) Urine Glucose (UA) (Negative) Urine Ketones (Negative) Urine Blood (Negative) Urine Nitrite (Negative) Urine Bilirubin (Negative) Urine Urobilinogen (<2.0) mg/dL Ur Leukocyte Esterase (Negative) 03/13/17 03/13/17 Range/Units 11:30 11:35 WBC (3.8-10.6) k/uL RBC (3.80-5.40) m/uL Hgb (11.4-16.0) gm/dL Hct (34.0-46.0) % MCV (80.0-100.0) fL MCH (25.0-35.0) pg MCHC (31.0-37.0) g/dL RDW (11.5-15.5) % Plt Count (150-450) k/uL Neutrophils % % Lymphocytes % % Monocytes % % Eosinophils % % Basophils % % Neutrophils # (1.3-7.7) k/uL Lymphocytes # (1.0-4.8) k/uL Monocytes # (0-1.0) k/uL Eosinophils # (0-0.7) k/uL Basophils # (0-0.2) k/uL PT 10.2 (9.0-12.0) sec INR 1.0 (<1.2) APTT 22.3 (22.0-30.0) sec Sodium (137-145) mmol/L Potassium (3.5-5.1) mmol/L Chloride (98-107) mmol/L Carbon Dioxide (22-30) mmol/L Anion Gap mmol/L BUN (7-17) mg/dL Creatinine (0.52-1.04) mg/dL Est GFR (MDRD) Af Amer (>60 ml/min/1.73 sqM) Est GFR (MDRD) Non-Af (>60 ml/min/1.73 sqM) Glucose (74-99) mg/dL Calcium (8.4-10.2) mg/dL Magnesium (1.6-2.3) mg/dL Total Bilirubin (0.2-1.3) mg/dL AST (14-36) U/L ALT (9-52) U/L Alkaline Phosphatase (38-126) U/L Total Creatine Kinase (30-135) U/L CK-MB (CK-2) (0.0-2.4) ng/mL CK-MB (CK-2) Rel Index Troponin I (0.000-0.034) ng/mL Total Protein (6.3-8.2) g/dL Albumin (3.5-5.0) g/dL Urine Color Yellow Urine Appearance Clear (Clear) Urine pH 5.5 (5.0-8.0) Ur Specific Broad [place] 1.027 (1.001-1.035) Urine Protein Trace H (Negative) Urine Glucose (UA) Negative (Negative) Urine Ketones Negative (Negative) Urine Blood Negative (Negative) Urine Nitrite Negative (Negative) Urine Bilirubin Negative (Negative) Urine Urobilinogen <2.0 (<2.0) mg/dL Ur Leukocyte Esterase Negative (Negative) Disposition <Shady Prescott - Last Filed: 03/13/17 13:01> <Rod Herrera - Last Filed: 03/13/17 13:32> Clinical Impression: Syncope, Patellar fracture Disposition: ADMITTED IP TO THIS [facility] Condition: Fair Referrals: Easton Tripathi DO [Primary Care Provider] - 1-2 days
--- NOTE | 2017-03-13 11:35 | XR ---
EXAMINATION TYPE: XR knee complete LT DATE OF EXAM: 03/13/2017 CLINICAL HISTORY: Fall injury a few days ago with pain. TECHNIQUE: Three views of the left knee are obtained. COMPARISON: Left knee x-ray from 11 days ago FINDINGS: Seen best on lateral view but confirmed on additional views there is transverse linear luce ncy through inferior aspect of the patella consistent with acute fracture. In retrospect this was pre sent on prior study. Increased density suprapatellar bursa is consistent with moderate joint effusion . There is baseline mild tricompartment joint space loss. IMPRESSION: There is acute minimally displaced transverse fracture through inferior portion of the p atella. Advise orthopedic referral. (Initial encounter closed type post traumatic fracture)
[2017-03-13 11:47] LABS: Basophils % (A) 1 %; CH 32.6; CHCM 32.9; Eosinophils # (A) 0.1 k/uL (0-0.7); Eosinophils % (A) 2 %; HDW 2.68; HGB 13.9 gm/dL (11.4-16.0); Luc # (Auto) 0.09; Luc % (Auto) 2; Lymphocytes # (A) 1.4 k/uL (1.0-4.8); Lymphocytes % (A) 28 %; MCH 31.4 pg (25.0-35.0); MCHC 31.5 g/dL (31.0-37.0); MCV 99.5 fL (80.0-100.0); Mean Platelet Volume 7.3; Monocytes # (A) 0.5 k/uL (0-1.0); Monocytes % (A) 9 %; Neutrophils # (A) 3.1 k/uL (1.3-7.7); Neutrophils % (A) 59 %; RBC 4.42 m/uL (3.80-5.40); RDW 13.7 % (11.5-15.5); WBC 5.2 k/uL (3.8-10.6)
[2017-03-13] MEDS ORDERED: MORPHINE SULFATE 4 MG/ML SYRINGE IVP STA (11:54)
[2017-03-13 12:00] LABS: ALT 34 U/L (9-52); AST 25 U/L (14-36); Alkaline Phosphatase 122 U/L (38-126); Anion Gap 12 mmol/L; Blood Urea Nitrogen 16 mg/dL (7-17); Calcium 9.9 mg/dL (8.4-10.2); Carbon Dioxide 23 mmol/L (22-30); Chloride 108 mmol/L (98-107); Glucose 95 mg/dL (74-99); Non-African American GFR(MDRD) >60 (>60 ml/min/1.73 sqM); Potassium 4.4 mmol/L (3.5-5.1); Sodium 143 mmol/L (137-145); Total Bilirubin 0.3 mg/dL (0.2-1.3)
[2017-03-13 12:04] LABS: Appearance,Urine Clear (Clear); Bilirubin,Urine Negative (Negative); Glucose,Urine (UA) Negative (Negative); Ketones,Urine Negative (Negative); Leukocyte Esterase,Urine Negative (Negative); Nitrite,Urine Negative (Negative); PH, Urine 5.5 (5.0-8.0); Protein,Urine Trace (Negative); Specific Gravity,Urine 1.027 (1.001-1.035); UA Billing (MACRO vs. MICRO) CHEM; Urobilinogen,Urine <2.0 mg/dL (<2.0)
[2017-03-13 12:11] LABS: Creatine Kinase <20 U/L (30-135)
[2017-03-13 12:20] LABS: Partial Thromboplastin Time 22.3 sec (22.0-30.0); Prothrombin Time 10.2 sec (9.0-12.0)
[2017-03-13 12:23] LABS: Creatine Kinase MB 0.3 ng/mL (0.0-2.4); Troponin I <0.012 ng/mL (0.000-0.034)
[2017-03-13] MEDS ORDERED: NALOXONE 0.4 MG/ML 1 ML VIAL IV PRN (13:04)
[2017-03-13] MEDS ORDERED: ONDANSETRON ODT 4 MG TAB PO PRN (13:06)
[2017-03-13] MEDS: MORPHINE SULFATE ER 15 MG TABLET PO SCH ×2 (15:31→20:28)
[2017-03-13] MEDS: GABAPENTIN 400 MG CAP PO SCH ×2 (17:57→20:28)
[2017-03-13] MEDS: oxyCODONE-APAP 5-325MG 1 EACH TAB PO PRN (19:15)
[2017-03-14] MEDS: oxyCODONE-APAP 5-325MG 1 EACH TAB PO PRN ×4 (01:22→23:38)
[2017-03-14] MEDS: GABAPENTIN 400 MG CAP PO SCH ×3 (05:28→20:56)
[2017-03-14] MEDS: MORPHINE SULFATE ER 15 MG TABLET PO SCH ×3 (05:28→20:56)
--- NOTE | 2017-03-14 08:27 | P.CNOR ---
History of Present Illness - HPI Consult date: 03/14/17 History of present illness: This is a 67-year-old female who is admitted for syncope. Orthopedics was consulted for left knee pain. Patient states 2 weeks ago she tripped and fell onto the left knee. Patient states x-rays were negative at this time. Patient states yesterday she had an episode of syncope causing her to fall on the left knee again. X-rays done in the emergency room show a fracture of the patella. Patient reports pain and bruising to the left knee. Patient denies any numbness , weakness, tingling, fever/chills. Review of Systems See HPI. Past Medical History Past Medical History: Cancer, Fibromyalgia, GI Bleed, Hyperlipidemia, Musculoskeletal Disorder, Osteoarthritis (OA), Rheumatoid Arthritis (RA) Additional Past Medical History / Comment(s): past HX MIGRAINES.falls, CHRONIC BACK PAIN, DDD. CERVICAL AND BREAST CA." hx hep a and b". Anemia hx blood transfusions and iron infusions, HX GI BLEED. HAD BRYCE PROC. HX COLON POLYPS-benign, stress test 2016-wnl. osteoporosis,"tremors- have eased up a bit", t11 fx History of Any Multi-Drug Resistant Organisms: None Reported Past Surgical History: Back Surgery, Ear Surgery, Hernia Repair, Hysterectomy, Orthopedic Surgery, Tonsillectomy Additional Past Surgical History / Comment(s): CERVICAL FUSION; LUMBAR FUSION; ORIF of Humerus, WITH ABDIFATAH/SCREWS. BREAST REDUCTION 2009.-had non healing wound afterwards then had wound closure and skin graft LT LUMPECTOMY X2, 1999 and 2ND IN 2003 WAS CA. RT TYMPANOPLASTY. D&C. EXC Cataract RITU. BRYCE FUNDLAPLASTY for hernia . Left breast mastectomy 2016 Past Anesthesia/Blood Transfusion Reactions: No Reported Reaction, Family History of Problems w/ Anesthesia Additional Past Anesthesia/Blood Transfusion Reaction / Comm: SISTER TAKES LONGER TO AWAKEN, YEARS AGO. Smoking Status: Former smoker - Past Family History Father Family Medical History: Congestive Heart Failure (CHF), COPD Additional Family Medical History / Comment(s): at age 72 Mother Family Medical History: Myocardial Infarction ([place]) Additional Family Medical History / Comment(s): 1987 age 57 mi Medications and Allergies Home Medications Medication Instructions Recorded Confirmed Type Folic Acid 1 mg PO DAILY 10/17/13 03/13/17 History Atorvastatin [Lipitor] 20 mg PO DAILY 09/21/14 03/13/17 History Calcium Carbonate/Vitamin D3 2 tab PO DAILY 05/16/15 03/13/17 History [Calcium 600-Vit D3 400 Tablet] Ascorbic Acid [Vitamin C] 500 mg PO DAILY 12/31/15 03/13/17 History buPROPion XL [Wellbutrin XL] 150 mg PO DAILY 02/04/16 03/13/17 History Lidocaine 5% Oint [Xylocaine 5% 1 applic TOPICAL TID PRN 04/13/16 03/13/17 History Oint] Cyanocobalamin [Vitamin B-12] 1 tab PO DAILY 06/08/16 03/13/17 History Aspirin/Acetaminophen/Caffeine 2 tab PO DAILY PRN 11/02/16 03/13/17 History [Excedrin Migraine Caplet] Gabapentin [Neurontin] 400 mg PO Q8H #90 cap 01/10/17 03/13/17 Rx Morphine Sulfate ER [Ms Contin 15 mg PO Q8H #90 tab 01/10/17 03/13/17 Rx 15Mg] oxyCODONE-APAP 5-325MG [Percocet 1 tab PO Q6HR PRN #120 tab 01/10/17 03/13/17 Rx 5-325 mg] Ondansetron Odt [Zofran ODT] 4 mg PO Q8HR PRN #10 tab 03/02/17 03/13/17 Rx Venlafaxine HCl [Effexor XR] 225 mg PO DAILY 03/02/17 03/13/17 History Allergies Allergy/AdvReac Type Severity Reaction Status Date / Time Sulfa (Sulfonamide Allergy Severe Rash/Hives Verified 03/13/17 10:51 Antibiotics) Tetracyclines Allergy Severe Rash/Hives Verified 03/13/17 10:51 latex Allergy SKIN RED Verified 03/13/17 10:51 AND IRRITATED LAUNDRY SOAPS Allergy Rash/Hives Uncoded 03/13/17 10:41 Physical Examination On exam of the left lower extremity there is ecchymosis and tenderness palpation over the left patella. There is minimal swelling. Patient is able to do a straight leg raise without difficulty. Patient has limited range of motion of the left lower extremity due to pain. Patient has full foot and ankle motion. Neurovascular status intact. Results X-rays of the left knee show minimally displaced fracture of the inferior pole of the patella. - Labs Labs: Abnormal Lab Results - Last 24 Hours (Table) 03/13/17 03/13/17 03/13/17 Range/Units 11:30 11:30 11:35 Chloride 108 H (98-107) mmol/L Total Creatine Kinase <20 L (30-135) U/L Urine Protein Trace H (Negative) H & H 03/13/17 Range/Units 11:30 Hgb 13.9 (11.4-16.0) gm/dL Hct 44.0 (34.0-46.0) % Coagulation 03/13/17 Range/Units 11:30 INR 1.0 (<1.2) Result Diagrams: 03/13/17 11:30 03/13/17 11:30 Assessment and Plan (1) Patellar fracture Status: Acute Plan: #1. Knee immobilizer to the left lower extremity. #2. May be full weightbearing with knee immobilizer. #3. Ice and elevation to the left knee. #4. Continue pain control. #5. Patient may follow up in the office with Dr. Shady Gomez in 2 weeks.
[2017-03-14] MEDS: ENOXAPARIN 40 MG/0.4 ML SYRINGE SQ SCH (09:43)
[2017-03-14] MEDS: buPROPion XL 150 MG TAB.ER.24H PO SCH (09:43)
[2017-03-14] MEDS: ATORVASTATIN 20 MG TAB PO SCH (09:43)
[2017-03-14] MEDS: FOLIC ACID 1 MG TAB PO SCH (09:43)
[2017-03-14] MEDS: CYANOCOBALAMIN 500 MCG TAB PO SCH (09:43)
[2017-03-14] MEDS: VENLAFAXINE HCL ER 75 MG CAP PO SCH (09:43)
--- NOTE | 2017-03-14 11:37 | P.CRDCN ---
History of Present Illness Consult date: 03/14/17 Requesting physician: Esau Flannery Reason for Consult (text): syncope Chief complaint: recurrent syncope History of present illness: 67-year-old female who previously followed with amy Munguia in the office however has not been seen in a couple years due to financial issues. Has a history of hyperlipidemia, rheumatoid arthritis, fibromyalgia, breast CA with prior mastectomy and past history of syncope with loop implantation in 2014. He presented to the emergency department with complaints of recurrent syncope. The patient she had this issue in 2014 but has been doing well up until several days ago. Syncope occurs while she is walking, usually shortly after standing. She was walking into her kitchen and felt as if everything was caving in and she fell to the floor. She denies complaints of chest discomfort has occasional shortness of breath. EKG done on presentation shows sinus rhythm with possible prior inferior [place], Q waves in the inferior leads, similar to findings on previous EKGs. Laboratory values show no gross abnormalities. Troponin less than 0.012 and a d-dimer of 0.51. He was found to have a patellar fracture by x-ray and orthopedics has been consulted. Old records are reviewed, patient underwent a limited stress echo in April 2016 showed no evidence for stress-induced ischemia. Upon examination, patient is resting comfortably in bed. She denies complaints of distress, does have some knee pain. Denies current complaints of shortness of breath, chest discomfort, dizziness, palpitations or edema. Past Medical History Past Medical History: Cancer, Fibromyalgia, GI Bleed, Hyperlipidemia, Musculoskeletal Disorder, Osteoarthritis (OA), Rheumatoid Arthritis (RA) Additional Past Medical History / Comment(s): past HX MIGRAINES.falls, CHRONIC BACK PAIN, DDD. CERVICAL AND BREAST CA." hx hep a and b". Anemia hx blood transfusions and iron infusions, HX GI BLEED. HAD BRYCE PROC. HX COLON POLYPS-benign, stress test 2016-wnl. osteoporosis,"tremors- have eased up a bit", t11 fx History of Any Multi-Drug Resistant Organisms: None Reported Past Surgical History: Back Surgery, Ear Surgery, Hernia Repair, Hysterectomy, Orthopedic Surgery, Tonsillectomy Additional Past Surgical History / Comment(s): CERVICAL FUSION; LUMBAR FUSION; ORIF of Humerus, WITH ABDIFATAH/SCREWS. BREAST REDUCTION 2009.-had non healing wound afterwards then had wound closure and skin graft LT LUMPECTOMY X2, 1999 and 2ND IN 2003 WAS CA. RT TYMPANOPLASTY. D&C. EXC Cataract RITU. BRYCE FUNDLAPLASTY for hernia . Left breast mastectomy 2016 Past Anesthesia/Blood Transfusion Reactions: No Reported Reaction, Family History of Problems w/ Anesthesia Additional Past Anesthesia/Blood Transfusion Reaction / Comment(s): SISTER TAKES LONGER TO AWAKEN, YEARS AGO. Smoking Status: Former smoker - Past Family History Father Family Medical History: Congestive Heart Failure (CHF), COPD Additional Family Medical History / Comment(s): at age 72 Mother Family Medical History: Myocardial Infarction ([place]) Additional Family Medical History / Comment(s): 1987 age 57 mi Medications and Allergies Home Medications Medication Instructions Recorded Confirmed Type Folic Acid 1 mg PO DAILY 10/17/13 03/13/17 History Atorvastatin [Lipitor] 20 mg PO DAILY 09/21/14 03/13/17 History Calcium Carbonate/Vitamin D3 2 tab PO DAILY 05/16/15 03/13/17 History [Calcium 600-Vit D3 400 Tablet] Ascorbic Acid [Vitamin C] 500 mg PO DAILY 12/31/15 03/13/17 History buPROPion XL [Wellbutrin XL] 150 mg PO DAILY 02/04/16 03/13/17 History Lidocaine 5% Oint [Xylocaine 5% 1 applic TOPICAL TID PRN 04/13/16 03/13/17 History Oint] Cyanocobalamin [Vitamin B-12] 1 tab PO DAILY 06/08/16 03/13/17 History Aspirin/Acetaminophen/Caffeine 2 tab PO DAILY PRN 11/02/16 03/13/17 History [Excedrin Migraine Caplet] Gabapentin [Neurontin] 400 mg PO Q8H #90 cap 01/10/17 03/13/17 Rx Morphine Sulfate ER [Ms Contin 15 mg PO Q8H #90 tab 01/10/17 03/13/17 Rx 15Mg] oxyCODONE-APAP 5-325MG [Percocet 1 tab PO Q6HR PRN #120 tab 01/10/17 03/13/17 Rx 5-325 mg] Ondansetron Odt [Zofran ODT] 4 mg PO Q8HR PRN #10 tab 03/02/17 03/13/17 Rx Venlafaxine HCl [Effexor XR] 225 mg PO DAILY 03/02/17 03/13/17 History Allergies Allergy/AdvReac Type Severity Reaction Status Date / Time Sulfa (Sulfonamide Allergy Severe Rash/Hives Verified 03/13/17 10:51 Antibiotics) Tetracyclines Allergy Severe Rash/Hives Verified 03/13/17 10:51 latex Allergy SKIN RED Verified 03/13/17 10:51 AND IRRITATED LAUNDRY SOAPS Allergy Rash/Hives Uncoded 03/13/17 10:41 Physical Exam Vitals: Vital Signs Temp Pulse Pulse Resp BP BP Pulse Ox 03/14/17 08:00 96.4 F L 64 16 96/55 97 03/14/17 03:41 96.8 F L 69 16 111/57 96 03/14/17 00:00 97.4 F L 74 16 112/56 95 03/13/17 20:00 97.4 F L 72 16 105/60 95 03/13/17 17:34 97.6 F 17 110/75 95 03/13/17 16:22 77 18 118/68 97 03/13/17 14:42 88 18 118/70 96 03/13/17 13:07 99.1 F 97 19 122/75 97 03/13/17 12:04 98 16 155/80 96 Intake and Output 03/13/17 03/14/17 03/14/17 22:59 06:59 14:59 Intake Total 350 180 Balance 350 180 Intake: Oral 350 180 Other: Voiding Method Toilet Toilet Toilet # Voids 1 1 Weight 55.4 kg PHYSICAL EXAMINATION: HEENT: Head is atraumatic, normocephalic. Pupils equal, round. Neck is supple. There is no elevated jugular venous pressure. HEART EXAMINATION: Heart sounds regular, S1 and S2 normal. No murmur or gallop heard. CHEST EXAMINATION: Lungs are clear to auscultation and precussion. No chest wall tenderness is noted on palpation or with deep breathing. ABDOMEN: Soft, nontender. Bowel sounds are heard. No organomegaly noted. EXTREMITIES: 2+ peripheral pulses with no evidence of peripheral edema and no calf tenderness noted. Left leg immobilizer in place. NEUROLOGIC patient is awake, alert and oriented x3. . Results 03/13/17 11:30 03/13/17 11:30 Cardiac Enzymes 03/13/17 03/13/17 Range/Units 11:30 11:30 AST 25 (14-36) U/L CK-MB (CK-2) 0.3 (0.0-2.4) ng/mL Troponin I <0.012 (0.000-0.034) ng/mL Coagulation 03/13/17 Range/Units 11:30 PT 10.2 (9.0-12.0) sec APTT 22.3 (22.0-30.0) sec CBC 03/13/17 Range/Units 11:30 WBC 5.2 (3.8-10.6) k/uL RBC 4.42 (3.80-5.40) m/uL Hgb 13.9 (11.4-16.0) gm/dL Hct 44.0 (34.0-46.0) % Plt Count 315 (150-450) k/uL Comprehensive Metabolic Panel 03/13/17 Range/Units 11:30 Sodium 143 (137-145) mmol/L Potassium 4.4 (3.5-5.1) mmol/L Chloride 108 H (98-107) mmol/L Carbon Dioxide 23 (22-30) mmol/L BUN 16 (7-17) mg/dL Creatinine 0.66 (0.52-1.04) mg/dL Glucose 95 (74-99) mg/dL Calcium 9.9 (8.4-10.2) mg/dL AST 25 (14-36) U/L ALT 34 (9-52) U/L Alkaline Phosphatase 122 (38-126) U/L Total Protein 7.0 (6.3-8.2) g/dL Albumin 4.2 (3.5-5.0) g/dL Current Medications Generic Name Dose Route Start Last Admin Trade Name Freq PRN Reason Stop Dose Admin Atorvastatin Calcium 20 mg 03/14/17 09:00 03/14/17 09:43 Lipitor PO 20 mg DAILY FCO Administration Bupropion HCl 150 mg 03/14/17 09:00 03/14/17 09:43 Wellbutrin Xl PO 150 mg DAILY FCO Administration Cyanocobalamin 500 mcg 03/14/17 09:00 03/14/17 09:43 Vitamin B-12 PO 500 mcg DAILY FCO Administration Enoxaparin Sodium 40 mg 03/14/17 09:00 03/14/17 09:43 Lovenox SQ 40 mg DAILY FCO Administration Folic Acid 1 mg 03/14/17 09:00 03/14/17 09:43 Folic Acid PO 1 mg DAILY FCO Administration Gabapentin 400 mg 03/13/17 13:15 03/14/17 11:19 Neurontin PO 400 mg Q8H FCO Administration Morphine Sulfate 15 mg 03/13/17 13:15 03/14/17 05:28 Ms Contin PO 15 mg Q8H FCO Administration Naloxone HCl 0.2 mg 03/13/17 13:04 Narcan IV Q2M PRN Opioid Reversal Ondansetron HCl 4 mg 03/13/17 13:06 Zofran Odt PO Q8HR PRN Nausea Oxycodone/Acetaminophen 1 each 03/13/17 13:06 03/14/17 09:41 Percocet 5-325 PO 1 each Q6HR PRN Administration Moderate Pain Venlafaxine HCl 225 mg 03/14/17 09:00 03/14/17 09:43 Effexor Xr PO 225 mg DAILY FCO Administration Intake and Output 03/13/17 03/14/17 03/14/17 22:59 06:59 14:59 Intake Total 350 180 Balance 350 180 Intake: Oral 350 180 Other: Voiding Method Toilet Toilet Toilet # Voids 1 1 Weight 55.4 kg 03/13/17 11:30 03/13/17 11:30 EKG Interpretations (text) Sinus rhythm with Q waves in the inferior leads, similar to previous EKGs Assessment and Plan Plan: Assessment and plan #1 recurrent syncope, likely secondary to orthostatic hypotension #2 fibromyalgia #3 hyperlipidemia #4 left patellar fracture From cardiology's perspective, we'll obtain a 2-D echo with Doppler and check orthostatic blood pressures. D-dimer was negative patient underwent stress echo less than one year ago that was negative. We will request interrogation of loop recorder. Further recommendations to follow. ONCOLOGY NURSE NAVIGATOR note has been reviewed, I agree with a documented findings and plan of care. Patient was seen and examined.
--- NOTE | 2017-03-14 13:14 | ECHOF ---
Referral Reason:syncope MEASUREMENTS -------- HEIGHT: 162.6 cm WEIGHT: 55.3 kg BP: 111/57 IVSd: 1.1 cm (0.6 - 1.1) LVIDd: 2.9 cm (3.9 - 5.3) LVPWd: 0.9 cm (0.6 - 1.1) IVSs: 1.0 cm LVIDs: 1.3 cm LVPWs: 1.2 cm Ao Diam: 2.9 cm (2.0 - 3.7) AV Cusp: 2.2 cm (1.5 - 2.6) LA Diam: 2.2 cm (2.7 - 3.8) MV EXCURSION: 20.347 mm (> 18.000) MV EF SLOPE: 116 mm/s (70 - 150) EPSS: 1.0 cm MV E Jeff: 0.76 m/s MV DecT: 295 ms MV A Jeff: 0.94 m/s MV E/A Ratio: 0.81 RAP: 5.00 mmHg RVSP: 13.69 mmHg FINDINGS -------- Sinus rhythm. This was a technically difficult study with suboptimal views. The left ventricular size is normal. Left ventricular wall thickness is normal. Overall left ventricular systolic function is normal with, an EF between 55 - 60 %. The right ventricle is normal in size and function. The left atrium is normal in size. The right atrium is normal in size. 1.5mg of Definity was utilized for enhancement of images The aortic valve is trileaflet, and appears structurally normal. No aortic stenosis or regurgitation. There is trace mitral regurgitation. Trace tricuspid regurgitation present. The right ventricular systolic pressure, as measured by Doppler, is 13.69mmHg. Pulmonic valve appears structurally normal. The aortic root size is normal. The pericardium is normal. CONCLUSIONS -------- 1. Sinus rhythm. 2. The aortic valve is trileaflet, and appears structurally normal. No aortic stenosis or regurgitation. 3. There is trace mitral regurgitation. 4. Trace tricuspid regurgitation present. 5. The right ventricular systolic pressure, as measured by Doppler, is 13.69mmHg. 6. Pulmonic valve appears structurally normal. 7. The aortic root size is normal. 8. The pericardium is normal. 9. This was a technically difficult study with suboptimal views. 10. The left ventricular size is normal. 11. Left ventricular wall thickness is normal. 12. Overall left ventricular systolic function is normal with, an EF between 55 - 60 %. 13. The right ventricle is normal in size and function. 14. The left atrium is normal in size. 15. The right atrium is normal in size. 16. 1.5mg of Definity was utilized for enhancement of images DRY CLEANING ATTENDANT: Chrissie Jara RDCS
[2017-03-14] MEDS ORDERED: LIDOCAINE 4% CREAM 5 GM TUBE TOPICAL PRN (15:07)
[2017-03-14] MEDS: FLUDROCORTISONE 0.1 MG TAB PO SCH ×2 (17:31→20:56)
--- NOTE | 2017-03-14 17:51 | HP ---
HISTORY AND PHYSICAL DATE OF ADMISSION: 03/13/2017. PRESENTING COMPLAINT: Fall. DATE OF SERVICE: 03/14/2017 HISTORY OF PRESENT COMPLAINT: This patient is seen by my nurse practitioner earlier today. The patient is a 67-year- old, who follows with Dr. Tripathi. Chronic stable medical conditions include fibromyalgia, osteoarthritis, depression, hyperlipidemia, rheumatoid arthritis. The patient for quite some time gets dizzy and lightheaded. Hence, gets up very slowly and is used to getting up slowly and doing things. In the last 2 weeks the patient is becoming more symptomatic and yesterday when she got up to get something she actually passed out hitting temporally, hitting her left knee and has now fracture of the left knee cap and has a brace in the place. Patient has chronic anemia and also has known peripheral neuropathy. No chest pain or palpitations. REVIEW OF SYSTEMS: CONSTITUTIONAL: None. HEENT: None. RESPIRATORY: None CARDIOVASCULAR: As above. GASTROINTESTINAL: None. MUSCULOSKELETAL: Pain in different joints and pain in left knee. HEMATOLOGIC: None. LYMPHATICS: None. PSYCHIATRY: Depression controlled. NEUROLOGICAL: Patient got chronic pain in multiple joints. PAST MEDICAL HISTORY: Fibromyalgia, osteoarthritis, depression, left breast wound, hyperlipidemia, rheumatoid arthritis, peripheral neuropathy, chronic anemia. Patient has a Loop recorder in place. PAST SURGICAL HISTORY: Back surgery, ear surgery, hernia repair, hysterectomy, arthritic surgery, tonsillectomy, cervical fusion, lumbar fusion, ORIF of the humerus with rods and screws, breast reduction 2009 and nonhealing wound and then had wound closure with skin graft, left lumpectomy 1999, right tympanoplasty, D and C. Extraction of cataract bilateral, Jarek fundoplasty for hernia, left mastectomy July 2016. SOCIAL HISTORY: The patient smoked a pack a day for [address] way back in 1977. Patient did drugs including crack. Stopped 18 years ago. The patient is an alcoholic. Stopped 20 years ago. Lives by herself. FAMILY HISTORY: COPD, congestive heart failure. HOME MEDICATIONS: 1. Percocet 5 one tab q.6h p.r.n. 2. Zofran 4 mg q.8h p.r.n. 3. MS Contin 15 mg q.8. 4. Xylocaine 5% topical t.i.d. 5. Wellbutrin XL 150 mg p.o. daily. 6. Effexor XR 225 mg p.o. daily. 7. Neurontin 400 mg p.o. q.8. 8. Folic acid 1 mg p.o. daily. 9. Vitamin B12, 1 tablet p.o. daily. 10.Calcium with vitamin D 2 tablets daily. 11.Lipitor 20 mg daily. 12.Excedrin migraine 2 caps 2 tablets p.o. daily p.r.n. 13.Vitamin C 500 mg p.o. daily. ALLERGIES: SULFA, TETRACYCLINE, LATEX, LAUNDRY SOAPS. PHYSICAL EXAMINATION: Vital signs on presentation: Temperature 99.7, pulse 105, respiration 17, blood pressure 107/65, pulse ox 100% room air. GENERAL APPEARANCE: Thin build, sitting up, tired appearing. EYES: Conjunctivae normal. HEENT: Oral cavity normal. NECK: JVD not raised. Mass not palpable. RESPIRATORY: Effort normal. LUNGS: Fair air entry. CARDIOVASCULAR: First and second sounds normal. No edema. ABDOMEN: Soft, nontender. Liver and spleen not palpable. LYMPHATIC: No lymph node palpable in neck or axillae. PSYCHIATRY: Alert and oriented x3. Mood and affect normal. NEUROLOGICAL: Pupils equal. Cranial nerves grossly intact. Decreased sensation peripherally. EXTREMITIES: Left knee in a brace. INVESTIGATIONS: White count 5.2, hemoglobin 13.9, potassium 4.4, BUN and creatinine normal. EKG: Normal sinus rhythm. Knee x-ray: Acute minimally displaced transverse fracture to the inferior portion of the patella. 2D echocardiogram shows EF of 55-60%. ASSESSMENT: 1. This is a patient who is displaying classical symptoms of orthostatic drop in blood pressure when gets up and has had it for quite some time and the recent times has become worse. It may be noted that the patient has peripheral neuropathy and a history of alcohol abuse in the past and that could be right side of patient having orthostatics. Patient also has a loop recorder in place and now presents with a syncopal episode. It is noted that patient's blood pressure is running on the lower side. 2. Acute patellar fracture transverse secondary to fall now with the knee brace. 3. Chronic fibromyalgia. 4. Primary osteoarthritis multiple joints. 5. Depression not otherwise specified. 6. Hyperlipidemia. PLAN: At this point we will add Florinef 0.1 mg twice a day. Check patient's blood pressure at standing at 0 minutes, 1 minute, 3 minutes with a manual to give us a baseline. Per Orthopedics brace has been put. The patient is seen by Cardiology. Will see how the patient does. The patient already has ample pain medications from before. I do not feel the need for adding anymore. This was discussed with the patient. BLAINE / HAYLEY: [id number] /
[2017-03-15] MEDS: GABAPENTIN 400 MG CAP PO SCH ×3 (04:44→21:26)
[2017-03-15] MEDS: MORPHINE SULFATE ER 15 MG TABLET PO SCH ×3 (04:44→21:26)
[2017-03-15] MEDS: oxyCODONE-APAP 5-325MG 1 EACH TAB PO PRN ×3 (07:52→20:05)
[2017-03-15] MEDS: CYANOCOBALAMIN 500 MCG TAB PO SCH (08:19)
[2017-03-15] MEDS: FLUDROCORTISONE 0.1 MG TAB PO SCH ×2 (08:19→21:27)
[2017-03-15] MEDS: ENOXAPARIN 40 MG/0.4 ML SYRINGE SQ SCH (08:19)
[2017-03-15] MEDS: buPROPion XL 150 MG TAB.ER.24H PO SCH (08:19)
[2017-03-15] MEDS: ATORVASTATIN 20 MG TAB PO SCH (08:19)
[2017-03-15] MEDS: VENLAFAXINE HCL ER 75 MG CAP PO SCH (08:19)
[2017-03-15] MEDS: FOLIC ACID 1 MG TAB PO SCH (08:19)
--- NOTE | 2017-03-15 08:41 | P.PN ---
Subjective Principal diagnosis: Fracture left patella This is a pleasant 67-year-old female who sustained a fracture of the left patella after a syncopal episode. Patient has been wearing a knee immobilizer and is weightbearing as tolerated. Patient states her knee is painful but this is tolerable. Patient denies any new complaints or any numbness, weakness or tingling. Objective - Vital Signs Vital signs: Vital Signs Temp 96.7 F L 03/15/17 03:55 Pulse 63 03/15/17 03:55 Resp 18 03/15/17 03:55 BP 98/65 03/15/17 03:55 Pulse Ox 63 L 03/15/17 03:55 Intake & Output 03/14/17 03/15/17 03/15/17 18:59 06:59 18:59 Intake Total 380 120 Balance 380 120 Weight 55 kg Intake: Oral 380 120 Other: Voiding Method Toilet Toilet # Voids 1 3 - Exam On exam there is tenderness over the left knee with faint ecchymosis. Mild swelling. Patient is able to do straight leg raise without difficulty. Calf is soft and nontender. Patient has full foot and ankle motion. Neurovascular status intact. - Labs CBC & Chem 7: 03/13/17 11:30 03/13/17 11:30 Assessment and Plan (1) Patellar fracture Status: Acute Plan: #1. Knee immobilizer to the left lower extremity. #2. May be full weightbearing with knee immobilizer. #3. Ice and elevation to the left knee. #4. Continue pain control. #5. Patient may follow up in the office with Dr. Shady Gomez in 2 weeks.
--- NOTE | 2017-03-15 14:28 | P.PN ---
Subjective Principal diagnosis: Syncope This is a pleasant 67-year-old female who previously followed with Dr. AMBERLY Munguia in the office however has not been seen in a couple years due to financial issues. Has a history of hyperlipidemia, rheumatoid arthritis, fibromyalgia, breast CA with prior mastectomy and past history of syncope with loop implantation in 2014. She presented to the emergency department with complaints of recurrent syncope. The patient she had this issue in 2014 but has been doing well up until several days ago. Syncope occurs while she is walking, usually shortly after standing. She was walking into her kitchen and felt as if everything was caving in and she fell to the floor. She denies complaints of chest discomfort has occasional shortness of breath. EKG done on presentation shows sinus rhythm with possible prior inferior SD, Q waves in the inferior leads, similar to findings on previous EKGs. Laboratory values show no gross abnormalities. Troponin less than 0.012 and a d-dimer of 0.51. She was found to have a patellar fracture by x-ray and orthopedics has been consulted. Old records are reviewed, patient underwent a Dobutamine stress echo in April 2016 showed no evidence for stress-induced ischemia. Procardia was interrogated and showed no episodes since June 2016. Patient had been hypotensive yesterday and Florinef was started by Dr. Flannery. Orthostatics were checked and came in to be systolic blood pressure of 108 supine and dropped to 92 standing. Echocardiogram showed normal LV systolic function. Upon examination, patient is resting comfortably in bed. She complained of some mild dizziness while she was up to the bathroom with no syncope. Objective - Vital Signs Vital signs: Vital Signs Temp 96.8 F L 03/15/17 11:50 Pulse 65 03/15/17 11:50 Resp 20 03/15/17 11:50 BP 113/53 03/15/17 11:50 Pulse Ox 99 03/15/17 11:50 Intake & Output 03/14/17 03/15/17 03/15/17 18:59 06:59 18:59 Intake Total 380 120 Balance 380 120 Weight 55 kg Intake: Oral 380 120 Other: Voiding Method Toilet Toilet # Voids 1 3 3 - Exam PHYSICAL EXAMINATION: HEENT: Head is atraumatic, normocephalic. Pupils equal, round. Neck is supple. There is no elevated jugular venous pressure. HEART EXAMINATION: Heart sounds regular, S1 and S2 normal. No murmur or gallop heard. CHEST EXAMINATION: Lungs are clear to auscultation and precussion. No chest wall tenderness is noted on palpation or with deep breathing. ABDOMEN: Soft, nontender. Bowel sounds are heard. No organomegaly noted. EXTREMITIES: 2+ peripheral pulses with no evidence of peripheral edema and no calf tenderness noted. Left leg immobilizer in place. NEUROLOGIC patient is awake, alert and oriented x3. - Labs CBC & Chem 7: 03/13/17 11:30 03/13/17 11:30 Assessment and Plan Plan: Assessment and plan #1 recurrent syncope, likely secondary to orthostatic hypotension #2 fibromyalgia #3 hyperlipidemia #4 left patellar fracture From cardiology's perspective, syncope likely related to orthostatic hypotension. Patient may be discharged home from our perspective and follow-up as an outpatient. SOCIAL MEDIA EDITOR note has been reviewed, I agree with a documented findings and plan of care. Patient was seen and examined.
--- NOTE | 2017-03-15 16:19 | P.PN ---
Subjective Principal diagnosis: #1 syncopal episode: Patient is hypotensive there is no evidence of hypercortisolism but patient is empirically on for the cortisone which will be continued and her blood pressure is actually better now and the causing her dizziness failed hold her discharge today for her blood pressure is okay and if her symptoms show any improvement patient will be discharged tomorrow patient is advised to taper opiate analgesia as an outpatient. Echo cardiac murmur essentially within normal limits. #2 patellar fracture: For which patient is on knee brace which is recent and secondary to fall. #3 fibromyalgia #4 osteoarthritis #5 depression #7 hyperlipidemia Above-mentioned chronic medical problems are good and continue her home medications. Patient given a syncopal episode, patient underwent excessive work of which is negative patient is still hypotensive earlier today morning with dizziness today. I will opt and a TSH I'm unable to do a cosyntropin stimulation test because she she was already started on fludrocortisone. Her Dizziness Will Watch Her One More Night Patient Is Not on Any Antihypertensive Medications at This Point of Time. Patient Is on Multiple Opiate Medications May Be Contributing to Her Falls and Syncopal Episodes Patient Is Advised to Taper It down with the Help of Primary Care Physician. Patient denied any chest pain, fever, nausea, vomiting, abdominal pain, dysuria. Objective - Vital Signs Vital signs: Vital Signs Temp 96.8 F L 03/15/17 15:38 Pulse 67 03/15/17 15:38 Resp 20 03/15/17 15:38 BP 107/62 03/15/17 15:38 Pulse Ox 97 03/15/17 15:38 Intake & Output 03/14/17 03/15/17 03/15/17 18:59 06:59 18:59 Intake Total 380 360 Balance 380 360 Weight 55 kg Intake: Oral 380 360 Other: Voiding Method Toilet Toilet # Voids 1 3 1 - Exam PHYSICAL EXAMINATION: GENERAL: The patient is alert and oriented x3, not in any acute distress. Well developed, well nourished. HEENT: Pupils are round and equally reacting to light. EOMI. No scleral icterus. No conjunctival pallor. Normocephalic, atraumatic. No pharyngeal erythema. No thyromegaly. CARDIOVASCULAR: S1 and S2 present. No murmurs, rubs, or gallops. PULMONARY: Chest is clear to auscultation, no wheezing or crackles. ABDOMEN: Soft, nontender, nondistended, normoactive bowel sounds. No palpable organomegaly. MUSCULOSKELETAL: No joint swelling or deformity. EXTREMITIES: No cyanosis, clubbing, or pedal edema. NEUROLOGICAL: Gross neurological examination did not reveal any focal deficits. SKIN: No rashes. - Labs CBC & Chem 7: 03/13/17 11:30 03/13/17 11:30
[2017-03-16] MEDS: oxyCODONE-APAP 5-325MG 1 EACH TAB PO PRN ×4 (02:11→23:49)
[2017-03-16] MEDS: MORPHINE SULFATE ER 15 MG TABLET PO SCH ×3 (05:39→20:31)
[2017-03-16] MEDS: GABAPENTIN 400 MG CAP PO SCH ×3 (05:41→20:31)
[2017-03-16] MEDS: FOLIC ACID 1 MG TAB PO SCH (08:32)
[2017-03-16] MEDS: FLUDROCORTISONE 0.1 MG TAB PO SCH ×2 (08:32→20:30)
[2017-03-16] MEDS: CYANOCOBALAMIN 500 MCG TAB PO SCH (08:32)
[2017-03-16] MEDS: buPROPion XL 150 MG TAB.ER.24H PO SCH (08:32)
[2017-03-16] MEDS: ATORVASTATIN 20 MG TAB PO SCH (08:32)
[2017-03-16] MEDS: VENLAFAXINE HCL ER 75 MG CAP PO SCH (08:33)
[2017-03-16] MEDS: ENOXAPARIN 40 MG/0.4 ML SYRINGE SQ SCH (08:36)
--- NOTE | 2017-03-16 15:07 | P.DS ---
Providers Date of admission: 03/13/17 13:36 Attending physician: Esau Flannery Consults: 03/13/17 13:05 Consult Physician Urgent Consulting Provider: [facility] Consult Reason/Comments: syncope Do you want consulting provider notified?: Yes Primary care physician: Easton Tripathi [facility] Course: Patient admitted for syncopal episode, patient underwent extensive cardiac workup including echo cardiogram which is negative and cardiology cleared her for discharge. Patient was started on fludrocortisone empirically with improvement in blood pressure, patient will be discharged today. Although patient is still complaining of dizziness her blood pressure is essentially within normal limits and remained stable. Patient does have narcotic dependence and narcotic seeking behavior and requesting oxycodone and patient does have pain contract with the pain physician as an outpatient and these opiates Will Not Be Provided to the Patient Prescription for Fludrocortisone Was Provided. #1 syncopal episode: #2 patellar fracture: For which patient is on knee brace which is recent and secondary to fall. #3 fibromyalgia #4 osteoarthritis #5 depression #7 hyperlipidemia #6 opiate dependence on narcotic seeking behavior PHYSICAL EXAMINATION: GENERAL: The patient is alert and oriented x3, not in any acute distress. Well developed, well nourished. HEENT: Pupils are round and equally reacting to light. EOMI. No scleral icterus. No conjunctival pallor. Normocephalic, atraumatic. No pharyngeal erythema. No thyromegaly. CARDIOVASCULAR: S1 and S2 present. No murmurs, rubs, or gallops. PULMONARY: Chest is clear to auscultation, no wheezing or crackles. ABDOMEN: Soft, nontender, nondistended, normoactive bowel sounds. No palpable organomegaly. MUSCULOSKELETAL: No joint swelling or deformity. EXTREMITIES: No cyanosis, clubbing, or pedal edema. NEUROLOGICAL: Gross neurological examination did not reveal any focal deficits. SKIN: No rashes. Patient Condition at Discharge: Fair Plan - Discharge Summary New Discharge Prescriptions: New Fludrocortisone [Florinef] 0.1 mg PO BID #60 tab Continue Folic Acid 1 mg PO DAILY Atorvastatin [Lipitor] 20 mg PO DAILY Calcium Carbonate/Vitamin D3 [Calcium 600-Vit D3 400 Tablet] 2 tab PO DAILY Ascorbic Acid [Vitamin C] 500 mg PO DAILY buPROPion XL [Wellbutrin XL] 150 mg PO DAILY Lidocaine 5% Oint [Xylocaine 5% Oint] 1 applic TOPICAL TID PRN PRN Reason: Mild To Moderate Pain Cyanocobalamin [Vitamin B-12] 1 tab PO DAILY Aspirin/Acetaminophen/Caffeine [Excedrin Migraine Caplet] 2 tab PO DAILY PRN PRN Reason: Headache oxyCODONE-APAP 5-325MG [Percocet 5-325 mg] 1 tab PO Q6HR PRN #120 tab PRN Reason: Pain Morphine Sulfate ER [Ms Contin] 15 mg PO Q8H #90 tab Gabapentin [Neurontin] 400 mg PO Q8H #90 cap Venlafaxine HCl [Effexor XR] 225 mg PO DAILY Ondansetron Odt [Zofran ODT] 4 mg PO Q8HR PRN #10 tab PRN Reason: Nausea Discharge Medication List Folic Acid 1 mg PO DAILY 10/17/13 [History] Atorvastatin [Lipitor] 20 mg PO DAILY 09/21/14 [History] Calcium Carbonate/Vitamin D3 [Calcium 600-Vit D3 400 Tablet] 2 tab PO DAILY [History] Ascorbic Acid [Vitamin C] 500 mg PO DAILY 12/31/15 [History] buPROPion XL [Wellbutrin XL] 150 mg PO DAILY 02/04/16 [History] Lidocaine 5% Oint [Xylocaine 5% Oint] 1 applic TOPICAL TID PRN 04/13/16 [History ] Cyanocobalamin [Vitamin B-12] 1 tab PO DAILY 06/08/16 [History] Aspirin/Acetaminophen/Caffeine [Excedrin Migraine Caplet] 2 tab PO DAILY PRN [History] Gabapentin [Neurontin] 400 mg PO Q8H #90 cap 01/10/17 [Rx] Morphine Sulfate ER [Ms Contin] 15 mg PO Q8H #90 tab 01/10/17 [Rx] oxyCODONE-APAP 5-325MG [Percocet 5-325 mg] 1 tab PO Q6HR PRN #120 tab 01/10/17 [ Rx] Ondansetron Odt [Zofran ODT] 4 mg PO Q8HR PRN #10 tab 03/02/17 [Rx] Venlafaxine HCl [Effexor XR] 225 mg PO DAILY 03/02/17 [History] Fludrocortisone [Florinef] 0.1 mg PO BID #60 tab 03/16/17 [Rx] Follow up Appointment(s)/Referral(s): Easton Tripathi DO [Primary Care Provider] - 03/20/17 8:30 am Shady Gomez DO [Doctor of Osteopathic Medicine] - 04/02/17 2:15 pm Activity/Diet/Wound Care/Special Instructions: Full weigtbearing to left lower extremity with knee immobilizer Discharge Disposition: HOME SELF-CARE
[2017-03-17] MEDS: GABAPENTIN 400 MG CAP PO SCH ×2 (05:46→15:39)
[2017-03-17] MEDS: MORPHINE SULFATE ER 15 MG TABLET PO SCH ×2 (05:46→15:38)
[2017-03-17] MEDS: buPROPion XL 150 MG TAB.ER.24H PO SCH (08:41)
[2017-03-17] MEDS: FLUDROCORTISONE 0.1 MG TAB PO SCH (08:41)
[2017-03-17] MEDS: VENLAFAXINE HCL ER 75 MG CAP PO SCH (08:41)
[2017-03-17] MEDS: ENOXAPARIN 40 MG/0.4 ML SYRINGE SQ SCH (08:41)
[2017-03-17] MEDS: CYANOCOBALAMIN 500 MCG TAB PO SCH (08:42)
[2017-03-17] MEDS: ATORVASTATIN 20 MG TAB PO SCH (08:42)
[2017-03-17] MEDS: FOLIC ACID 1 MG TAB PO SCH (08:42)
[2017-03-17] MEDS: oxyCODONE-APAP 5-325MG 1 EACH TAB PO PRN (11:22)
[2017-03-17 12:01] LABS: Glucose,Whole Blood 83 mg/dL (75-99)
[2017-03-17 13:00] VITALS: BP 142/85; PULSE 70; RESP 16; TEMP 97.1
== END 2017-03-17 16:04 | disposition home or self-care (01) | DRG 312 ==
LOC: EC 10:36 → 6SEL 13:36
PROVIDERS: ADMIT Hospitalist; ATTEND Hospitalist
DX: R55 Syncope and collapse (principal); F11.20 Opioid dependence, uncomplicated; G62.9 Polyneuropathy, unspecified; E78.5 Hyperlipidemia, unspecified; M19.91 Primary osteoarthritis, unspecified site; M79.7 Fibromyalgia; F32.9 Major depressive disorder, single episode, unspecified; F41.0 Panic disorder [episodic paroxysmal anxiety]; F43.10 Post-traumatic stress disorder, unspecified; F10.21 Alcohol dependence, in remission; F41.9 Anxiety disorder, unspecified; G89.29 Other chronic pain; M81.0 Age-related osteoporosis without current pathological fracture; M06.9 Rheumatoid arthritis, unspecified; I25.2 Old myocardial infarction; G43.909 Migraine, unspecified, not intractable, without status migrainosus; M54.9 Dorsalgia, unspecified; S82.002D Unspecified fracture of left patella, subsequent encounter for closed fracture with routine healing; Z76.5 Malingerer [conscious simulation]; Z79.82 Long term (current) use of aspirin; Z79.899 Other long term (current) drug therapy; Z90.710 Acquired absence of both cervix and uterus; Z87.891 Personal history of nicotine dependence; Z98.42 Cataract extraction status, left eye; Z98.41 Cataract extraction status, right eye; Z90.12 Acquired absence of left breast and nipple; Z59.9 Problem related to housing and economic circumstances, unspecified; Z85.3 Personal history of malignant neoplasm of breast; Z86.010 Personal history of colon polyps; Z82.49 Family history of ischemic heart disease and other diseases of the circulatory system; W01.0XXD Fall on same level from slipping, tripping and stumbling without subsequent striking against object, subsequent encounter
CPT/HCPCS: 36415; 80053; 81003; 82533; 82550; 82553; 83735; 84443; 84484; 85025; 85379; 85610; 85730; 93005; 93306; 94760; 96374; 99285

== ENCOUNTER 2017-03-23 13:31 | Emergency (ER) | payer MEDICARE ==
--- NOTE | 2017-03-23 13:36 | ED ---
Lower Extremity Injury HPI - General Stated Complaint: Knee Pain Time Seen by Provider: 03/23/17 13:35 Source: patient, RN notes reviewed Mode of arrival: ambulatory Limitations: no limitations - History of Present Illness Initial Comments: 67-year-old female presents emergency Department with chief complaint of left knee pain. Patient was admitted last week for fall, syncopal episode and patella fracture. Patient states she did see orthopedics and has a follow-up appointment next week. Patient states that because she was in the hospital she did not have her appointment for pain management. Patient states she is out of her pain medications which she takes morphine and Percocet. Patient states his Neurontin today and had minimal relief her pain. She denies any new injuries no falls. - Related Data Home Medications Medication Instructions Recorded Confirmed Folic Acid 1 mg PO DAILY 10/17/13 03/13/17 Atorvastatin [Lipitor] 20 mg PO DAILY 09/21/14 03/13/17 Calcium Carbonate/Vitamin D3 2 tab PO DAILY 05/16/15 03/13/17 [Calcium 600-Vit D3 400 Tablet] Ascorbic Acid [Vitamin C] 500 mg PO DAILY 12/31/15 03/13/17 buPROPion XL [Wellbutrin XL] 150 mg PO DAILY 02/04/16 03/13/17 Lidocaine 5% Oint [Xylocaine 5% 1 applic TOPICAL TID PRN 04/13/16 03/13/17 Oint] Cyanocobalamin [Vitamin B-12] 1 tab PO DAILY 06/08/16 03/13/17 Aspirin/Acetaminophen/Caffeine 2 tab PO DAILY PRN 11/02/16 03/13/17 [Excedrin Migraine Caplet] Venlafaxine HCl [Effexor XR] 225 mg PO DAILY 03/02/17 03/13/17 Previous Rx's Medication Instructions Recorded Gabapentin [Neurontin] 400 mg PO Q8H #90 cap 01/10/17 Morphine Sulfate ER [Ms Contin] 15 mg PO Q8H #90 tab 01/10/17 oxyCODONE-APAP 5-325MG [Percocet 1 tab PO Q6HR PRN #120 tab 01/10/17 5-325 mg] Ondansetron Odt [Zofran ODT] 4 mg PO Q8HR PRN #10 tab 03/02/17 Fludrocortisone [Florinef] 0.1 mg PO BID #60 tab 03/16/17 Allergies Allergy/AdvReac Type Severity Reaction Status Date / Time Sulfa (Sulfonamide Allergy Severe Rash/Hives Verified 03/13/17 10:51 Antibiotics) Tetracyclines Allergy Severe Rash/Hives Verified 03/13/17 10:51 latex Allergy SKIN RED Verified 03/13/17 10:51 AND IRRITATED LAUNDRY SOAPS Allergy Rash/Hives Uncoded 03/13/17 10:41 Review of Systems ROS Statement: Those systems with pertinent positive or pertinent negative responses have been documented in the HPI. ROS Other: All systems not noted in ROS Statement are negative. Past Medical History Past Medical History: Cancer, Fibromyalgia, GI Bleed, Hyperlipidemia, Musculoskeletal Disorder, Osteoarthritis (OA), Rheumatoid Arthritis (RA) Additional Past Medical History / Comment(s): past HX MIGRAINES.falls, CHRONIC BACK PAIN, DDD. CERVICAL AND BREAST CA." hx hep a and b". Anemia hx blood transfusions and iron infusions, HX GI BLEED. HAD BRYCE PROC. HX COLON POLYPS-benign, stress test 2016-wnl. osteoporosis,"tremors- have eased up a bit", t11 fx History of Any Multi-Drug Resistant Organisms: None Reported Past Surgical History: Back Surgery, Ear Surgery, Hernia Repair, Hysterectomy, Orthopedic Surgery, Tonsillectomy Additional Past Surgical History / Comment(s): CERVICAL FUSION; LUMBAR FUSION; ORIF of Humerus, WITH ABDIFATAH/SCREWS. BREAST REDUCTION 2009.-had non healing wound afterwards then had wound closure and skin graft LT LUMPECTOMY X2, 1999 and 2ND IN 2003 WAS CA. RT TYMPANOPLASTY. D&C. EXC Cataract RITU. BRYCE FUNDLAPLASTY for hernia . Left breast mastectomy 2016 Past Anesthesia/Blood Transfusion Reactions: No Reported Reaction, Family History of Problems w/ Anesthesia Additional Past Anesthesia/Blood Transfusion Reaction / Comment(s): SISTER TAKES LONGER TO AWAKEN, YEARS AGO. Smoking Status: Former smoker - Past Family History Father Family Medical History: Congestive Heart Failure (CHF), COPD Additional Family Medical History / Comment(s): at age 72 Mother Family Medical History: Myocardial Infarction ([place]) Additional Family Medical History / Comment(s): 1987 age 57 mi General Exam General appearance: alert, in no apparent distress Head exam: Present: atraumatic, normocephalic, normal inspection Respiratory exam: Present: normal lung sounds bilaterally. Absent: respiratory distress, wheezes, rales, rhonchi, stridor Cardiovascular Exam: Present: regular rate, normal rhythm, normal heart sounds. Absent: systolic murmur, diastolic murmur, rubs, gallop, clicks Extremities exam: Present: other (Left knee there is minimal immobilizer on patient does not have full range motion secondary to pain tenderness over the patella) Skin exam: Present: warm, dry, intact, normal color. Absent: rash Medical Decision Making - Medical Decision Making 67-year-old female presented emergency from for knee pain. Patient has a patella fracture was diagnosed in noted by orthopedics. Patient is out of her pain medication though she is on a pain contract. Patient is informed that she will not receive a prescription for pain meds. She'll be given a shot of morphine and she normal takes morphine daily. Disposition Clinical Impression: Patella fracture, Chronic pain Disposition: HOME SELF-CARE Condition: Stable Instructions: Patellar Fracture (ED) Additional Instructions: Please return to the Emergency Department if symptoms worsen or any other concerns. Follow-up with or so in pain management as directed. Referrals: Easton Tripathi DO [Primary Care Provider] - 1-2 days Time of Disposition: 13:36
[2017-03-23] MEDS ORDERED: MORPHINE SULFATE 4 MG/ML SYRINGE IM STA (13:38)
[2017-03-23 13:47] VITALS: BP 140/79; PULSE 57; RESP 18; TEMP 98.2
== END 2017-03-23 14:01 | disposition home or self-care (01) ==
LOC: EC 13:31
DX: S82.002D Unspecified fracture of left patella, subsequent encounter for closed fracture with routine healing (principal); G89.29 Other chronic pain; M25.562 Pain in left knee; E78.5 Hyperlipidemia, unspecified; Z85.3 Personal history of malignant neoplasm of breast; Z85.41 Personal history of malignant neoplasm of cervix uteri; Z87.891 Personal history of nicotine dependence; Z98.890 Other specified postprocedural states; Z88.2 Allergy status to sulfonamides; Z88.1 Allergy status to other antibiotic agents; Z91.040 Latex allergy status; Z91.09 Other allergy status, other than to drugs and biological substances; Z79.899 Other long term (current) drug therapy
CPT/HCPCS: 96372 ×2; 99284 ×2; J2270

== ENCOUNTER → 2017-03-26 | Outpatient (CLI) | payer MEDICARE ==
[2017-03-26 14:01] VITALS: BP 177/90; PULSE 76; RESP 16; TEMP 98.1
--- NOTE | 2017-03-26 14:19 | P.PN ---
Progress Note - Text Progress Note Date: 03/26/17 This is a 66-year-old female with history of neck and lower back pain also mid back pain. The patient has a diagnosis of failed neck and back surgery. She had an MRI done on the thoracic spine only this morning which showed large disc protrusion and herniation at the T8 9 level and T6 7 level with mild spinal canal stenosis and focal indentation of the ventral cord. The patient also recently had a fracture in her left patella. She is alert oriented 3 no apparent distress she does not show any signs of oversedation or any suicidal ideation. Today I will increase her Percocet only by a few more bevels just to help her with her left patella fracture and we'll go down to the previous fracture dose next month. I will also schedule the patient to have thoracic epidural steroid injection under fluoroscopic guidance. I'll give her prescription for Percocet 5 mg 135 pills for this month and 120 pills for the next month and also will continue the same dose of MS Contin at 15 mg 3 times a day.
== END | disposition home or self-care (01) ==
LOC: PNWHC3 12:25
PROVIDERS: ATTEND Anesthesiology
DX: M48.04 Spinal stenosis, thoracic region (principal); M51.24 Other intervertebral disc displacement, thoracic region; Z79.891 Long term (current) use of opiate analgesic; Z79.899 Other long term (current) drug therapy
CPT/HCPCS: 99211

== ENCOUNTER → 2017-03-26 | Outpatient (CLI) | payer MEDICARE ==
--- NOTE | 2017-03-26 13:01 | MR ---
EXAMINATION TYPE: MR thoracic spine wo con DATE OF EXAM: 03/26/2017 COMPARISON: Correlation CT 01/04/2014 HISTORY: 67-year-old female, pain, history of T11 fracture, spondylosis tsp Technique: Multiplanar, multisequence images of the thoracic spine were acquired. Diffusion weighted imaging was performed. FINDINGS: The sagittal T2 counting sequence shows changes of C3-C5 ACDF. Multilevel spondylotic change is prese nt in the cervical spine causing mild spinal canal stenoses and abutment of both the dorsal and ventr al cord but no alexandre canal compromise/cord compression. Intervertebral discs in the thoracic spine are degenerated, desiccated, narrowed, and bulging. There is mild anterior wedging of T11 with approximately 30% anterior height loss relating to a remot e vertebral compression injury. Scattered endplate Schmorl's nodes in the mid thoracic spine. Some pr ominent islands of fatty marrow as well is a probable fatty matrix hemangioma are present, particular ly at T9. Remaining vertebral body heights are maintained and no suspicious bone marrow replacement is seen. Conus medullaris is normal. Scattered facet degenerative change and some ligamentum flavum thickening. There is degenerative grade 1 anterolisthesis at T2-T3 but otherwise preserved alignment. Scattered small disc protrusions are present. At T6-T7, there is a prominent right paracentral disc protrusion which focally indents the right vent ral cord mildly narrowing the spinal canal. At T8-T9, there is a large right paracentral disc extrusion with some superior migration of disc mate rial. There is also focally indents the ventral cord and mildly narrows the spinal canal. Along with facet arthropathy and ligamentum flavum thickening, there is mild bilateral neuroforaminal stenosis. At T10-T11, there is mild retropulsion of the T11 superior endplate into the ventral spinal canal mil dly narrowing the spinal canal and focally indenting the ventral cord. Despite facet arthropathy, the re is no significant neuroforaminal stenosis. At T12-L1, there is a large left paracentral disc protrusion. This causes minimal inferior narrowing of the left neuroforamen. No spinal canal stenosis. Variable mild neuroforaminal stenoses are present throughout secondary to facet arthropathy. No high- grade foraminal narrowing seen. Normal T2-weighted cord signal. There may be mild aneurysm of the ascending aorta at 4.0 cm. No prevertebral or paravertebral soft ti ssue abnormality seen. IMPRESSION: 1. Moderate multilevel degenerative disc disease. Focal disc herniations are present, largest extrusi on towards the left at T8-T9 causing mild spinal canal stenosis and focally indenting the ventral cor d. 2. The second largest herniation is at T6-T7 which also mildly narrow the spinal canal and focally in dents the ventral cord. 3. There is no alexandre canal compromise or myelopathic cord signal change. 4. Additional facet arthropathy and ligamentum flavum thickening contribute to variable mild neurofor aminal narrowing throughout. 5. Old superior endplate compression injury of T11. There is slight endplate retropulsion which mildl y narrows the spinal canal, again, slightly indenting the ventral cord but without alexandre cord avis bernabe. 6. There may be mild aneurysm of the ascending aorta at 4.0 cm.
== END | disposition home or self-care (01) ==
LOC: RADMRIMAIN 10:24
PROVIDERS: ATTEND Anesthesiology
DX: M48.04 Spinal stenosis, thoracic region (principal); M51.24 Other intervertebral disc displacement, thoracic region; M51.34 Other intervertebral disc degeneration, thoracic region; M46.94 Unspecified inflammatory spondylopathy, thoracic region; M24.28 Disorder of ligament, vertebrae; M99.72 Connective tissue and disc stenosis of intervertebral foramina of thoracic region
CPT/HCPCS: 72146

== ENCOUNTER 2017-04-08 11:17 | Emergency (ER) | payer MEDICARE ==
[2017-04-08] MEDS ORDERED: SODIUM CHLORIDE 0.9% 1,000 ML IV STA (11:57)
[2017-04-08] MEDS ORDERED: DIPHENOX-ATROP 2.5-0.025 MG 1 EACH TAB PO STA (11:57)
[2017-04-08] MEDS ORDERED: LORazepam 2 MG/ML INJ IV STA (12:01)
--- NOTE | 2017-04-08 12:01 | ED ---
General Adult HPI - General Chief complaint: Syncope Stated complaint: diarrhea, syncope Time Seen by Provider: 04/08/17 11:30 Source: patient, RN notes reviewed Mode of arrival: ambulatory Limitations: no limitations - History of Present Illness Initial comments: This is a 67-year-old female presents emergency department with past history significant for chronic pain syncopal issues and fibromyalgia. Patient comes in today stating that yesterday she started having diarrhea and continued this morning she got out of bed slowly went to the bathroom several times and almost passed out. Patient states she absolutely did not pass out completely. She felt as though she's given a passout needed to hold onto some. Patient states over the last couple days she's had multiple episodes very similar to this which she always passes out but has not quite passed out. Patient denies headache patient denies any numbness or weakness. Patient denies any chest pain palpitations difficulty breathing shortness of breath per patient denies any abdominal pain patient denies nausea or vomiting but again started having diarrhea as of last night. Patient states she's had many times in the past where she does have diarrhea and it has been a chronic ongoing issue. Patient denies any fever chills or cough. Patient denies any dysuria hematuria urinary frequency. - Related Data Home Medications Medication Instructions Recorded Confirmed Folic Acid 1 mg PO DAILY 10/17/13 04/08/17 Atorvastatin [Lipitor] 20 mg PO DAILY 09/21/14 04/08/17 Calcium Carbonate/Vitamin D3 2 tab PO DAILY 05/16/15 04/08/17 [Calcium 600-Vit D3 400 Tablet] Ascorbic Acid [Vitamin C] 500 mg PO DAILY 12/31/15 04/08/17 buPROPion XL [Wellbutrin XL] 150 mg PO DAILY 02/04/16 04/08/17 Lidocaine 5% Oint [Xylocaine 5% 1 applic TOPICAL TID PRN 04/13/16 04/08/17 Oint] Cyanocobalamin [Vitamin B-12] 500 mcg PO DAILY 06/08/16 04/08/17 Aspirin/Acetaminophen/Caffeine 2 tab PO DAILY PRN 11/02/16 04/08/17 [Excedrin Migraine Caplet] Venlafaxine HCl [Effexor XR] 225 mg PO DAILY 03/02/17 04/08/17 Previous Rx's Medication Instructions Recorded Gabapentin [Neurontin] 400 mg PO Q8H #90 cap 01/10/17 Morphine Sulfate ER [Ms Contin] 15 mg PO Q8H #90 tab 01/10/17 oxyCODONE-APAP 5-325MG [Percocet 1 tab PO Q6HR PRN #120 tab 01/10/17 5-325 mg] Ondansetron Odt [Zofran ODT] 4 mg PO Q8HR PRN #10 tab 03/02/17 Fludrocortisone [Florinef] 0.1 mg PO BID #60 tab 03/16/17 Diphenox-Atrop 2.5-0.025 mg 2 tab PO QID PRN #12 tab 04/08/17 [Lomotil] Allergies Allergy/AdvReac Type Severity Reaction Status Date / Time Sulfa (Sulfonamide Allergy Severe Rash/Hives Verified 04/08/17 13:04 Antibiotics) Tetracyclines Allergy Severe Rash/Hives Verified 04/08/17 13:04 latex Allergy Rash/Hives Verified 04/08/17 13:04 LAUNDRY SOAPS Allergy Rash/Hives Uncoded 03/26/17 13:46 Review of Systems ROS Statement: Those systems with pertinent positive or pertinent negative responses have been documented in the HPI. ROS Other: All systems not noted in ROS Statement are negative. Past Medical History Past Medical History: Cancer, COPD, Fibromyalgia, GI Bleed, Hyperlipidemia, Musculoskeletal Disorder, Osteoarthritis (OA), Rheumatoid Arthritis (RA) Additional Past Medical History / Comment(s): past HX MIGRAINES.falls, CHRONIC BACK PAIN, DDD. CERVICAL AND BREAST CA." hx hep a and b". Anemia hx blood transfusions and iron infusions, HX GI BLEED. HAD BRYCE PROC. HX COLON POLYPS-benign, stress test 2016-wnl. osteoporosis,"tremors- have eased up a bit", t11 fx, chronic diarrhea, syncope. History of Any Multi-Drug Resistant Organisms: None Reported Past Surgical History: Back Surgery, Ear Surgery, Hernia Repair, Hysterectomy, Orthopedic Surgery, Tonsillectomy Additional Past Surgical History / Comment(s): CERVICAL FUSION; LUMBAR FUSION; ORIF of Humerus, WITH ABDIFATAH/SCREWS. BREAST REDUCTION 2009.-had non healing wound afterwards then had wound closure and skin graft LT LUMPECTOMY X2, 1999 and 2ND IN 2003 WAS CA. RT TYMPANOPLASTY. D&C. EXC Cataract RITU. BRYCE FUNDLAPLASTY for hernia . Left breast mastectomy 2016 Past Anesthesia/Blood Transfusion Reactions: No Reported Reaction, Family History of Problems w/ Anesthesia Additional Past Anesthesia/Blood Transfusion Reaction / Comment(s): SISTER TAKES LONGER TO AWAKEN, YEARS AGO. Past Psychological History: Anxiety, Depression, Panic Disorder, PTSD Smoking Status: Former smoker Past Alcohol Use History: None Reported Past Drug Use History: None Reported - Past Family History Father Family Medical History: Congestive Heart Failure (CHF), COPD Additional Family Medical History / Comment(s): at age 72 Mother Family Medical History: Myocardial Infarction ([place]) Additional Family Medical History / Comment(s): 1987 age 57 mi General Exam - General Exam Comments Initial Comments: GENERAL: Patient is well-developed and well-nourished. Patient is nontoxic and well- hydrated and is in no acute distress. ENT: Neck is soft and supple. No significant lymphadenopathy is noted. Oropharynx is clear. Moist mucous membranes. Neck has full range of motion without eliciting any pain. EYES: The sclera were anicteric and conjunctiva were pink and moist. Extraocular movements were intact and pupils were equal round and reactive to light. Eyelids were unremarkable. PULMONARY: Unlabored respirations. Good breath sounds bilaterally. No audible rales rhonchi or wheezing was noted. CARDIOVASCULAR: There is a regular rate and rhythm without any murmurs gallops or rubs. ABDOMEN: Soft and nontender with normal bowel sounds. No palpable organomegaly was noted. There is no palpable pulsatile mass. SKIN: Skin is clear with no lesions or rashes and otherwise unremarkable. NEUROLOGIC: Patient is alert and oriented x3. Cranial nerves II through XII are grossly intact. Motor and sensory are also intact. Normal speech, volume and content. Symmetrical smile. MUSCULOSKELETAL: Normal extremities with adequate strength and full range of motion. No lower extremity swelling or edema. No calf tenderness. LYMPHATICS: No significant lymphadenopathy is noted PSYCHIATRIC: Patient seems anxious. Limitations: no limitations Course Vital Signs 04/08/17 04/08/17 11:28 12:46 Temperature 97.7 F Pulse Rate 92 84 Respiratory 18 16 Rate Blood Pressure 148/78 152/93 O2 Sat by Pulse 100 100 Oximetry Medical Decision Making - Medical Decision Making EKG shows normal sinus rhythm at 75 bpm TX interval is a 52 QRS is 76 QT interval 396 QTC is 442 per patient's EKG shows no ST segment elevation or depression or T wave normalities are noted. Patient was able to ambulate without problem. Patient had no diarrhea while in the emergency department. - Lab Data Result diagrams: 04/08/17 12:30 04/08/17 12:30 Lab Results 04/08/17 04/08/17 04/08/17 Range/Units 12:30 12:30 12:30 WBC 5.7 (3.8-10.6) k/uL RBC 4.49 (3.80-5.40) m/uL Hgb 13.9 (11.4-16.0) gm/dL Hct 45.5 (34.0-46.0) % MCV 101.3 H (80.0-100.0) fL MCH 31.1 (25.0-35.0) pg MCHC 30.7 L (31.0-37.0) g/dL RDW 14.1 (11.5-15.5) % Plt Count 269 (150-450) k/uL Neutrophils % 70 % Lymphocytes % 19 % Monocytes % 6 % Eosinophils % 2 % Basophils % 1 % Neutrophils # 4.0 (1.3-7.7) k/uL Lymphocytes # 1.1 (1.0-4.8) k/uL Monocytes # 0.3 (0-1.0) k/uL Eosinophils # 0.1 (0-0.7) k/uL Basophils # 0.0 (0-0.2) k/uL Macrocytosis Slight PT (9.0-12.0) sec INR (<1.2) APTT (22.0-30.0) sec Sodium 142 (137-145) mmol/L Potassium 4.0 (3.5-5.1) mmol/L Chloride 106 (98-107) mmol/L Carbon Dioxide 24 (22-30) mmol/L Anion Gap 12 mmol/L BUN 19 H (7-17) mg/dL Creatinine 0.58 (0.52-1.04) mg/dL Est GFR (MDRD) Af Amer >60 (>60 ml/min/1.73 sqM) Est GFR (MDRD) Non-Af >60 (>60 ml/min/1.73 sqM) Glucose 103 H (74-99) mg/dL Calcium 9.6 (8.4-10.2) mg/dL Magnesium 1.9 (1.6-2.3) mg/dL Total Bilirubin 0.2 (0.2-1.3) mg/dL AST 26 (14-36) U/L ALT 16 (9-52) U/L Alkaline Phosphatase 163 H (38-126) U/L Total Creatine Kinase <20 L (30-135) U/L CK-MB (CK-2) 0.3 (0.0-2.4) ng/mL CK-MB (CK-2) Rel Index Troponin I <0.012 (0.000-0.034) ng/mL Total Protein 7.1 (6.3-8.2) g/dL Albumin 4.1 (3.5-5.0) g/dL Urine Color Urine Appearance (Clear) Urine pH (5.0-8.0) Ur Specific [place] (1.001-1.035) Urine Protein (Negative) Urine Glucose (UA) (Negative) Urine Ketones (Negative) Urine Blood (Negative) Urine Nitrite (Negative) Urine Bilirubin (Negative) Urine Urobilinogen (<2.0) mg/dL Ur Leukocyte Esterase (Negative) Urine RBC (0-5) /hpf Urine WBC (0-5) /hpf Ur Squamous Epith Cells (0-4) /hpf Calcium Oxalate Crystal (None) /hpf Hyaline Casts (0-2) /lpf Urine Mucus (None) /hpf 04/08/17 04/08/17 Range/Units 12:30 12:40 WBC (3.8-10.6) k/uL RBC (3.80-5.40) m/uL Hgb (11.4-16.0) gm/dL Hct (34.0-46.0) % MCV (80.0-100.0) fL MCH (25.0-35.0) pg MCHC (31.0-37.0) g/dL RDW (11.5-15.5) % Plt Count (150-450) k/uL Neutrophils % % Lymphocytes % % Monocytes % % Eosinophils % % Basophils % % Neutrophils # (1.3-7.7) k/uL Lymphocytes # (1.0-4.8) k/uL Monocytes # (0-1.0) k/uL Eosinophils # (0-0.7) k/uL Basophils # (0-0.2) k/uL Macrocytosis PT 10.3 (9.0-12.0) sec INR 1.0 (<1.2) APTT 24.4 (22.0-30.0) sec Sodium (137-145) mmol/L Potassium (3.5-5.1) mmol/L Chloride (98-107) mmol/L Carbon Dioxide (22-30) mmol/L Anion Gap mmol/L BUN (7-17) mg/dL Creatinine (0.52-1.04) mg/dL Est GFR (MDRD) Af Amer (>60 ml/min/1.73 sqM) Est GFR (MDRD) Non-Af (>60 ml/min/1.73 sqM) Glucose (74-99) mg/dL Calcium (8.4-10.2) mg/dL Magnesium (1.6-2.3) mg/dL Total Bilirubin (0.2-1.3) mg/dL AST (14-36) U/L ALT (9-52) U/L Alkaline Phosphatase (38-126) U/L Total Creatine Kinase (30-135) U/L CK-MB (CK-2) (0.0-2.4) ng/mL CK-MB (CK-2) Rel Index Troponin I (0.000-0.034) ng/mL Total Protein (6.3-8.2) g/dL Albumin (3.5-5.0) g/dL Urine Color Yellow Urine Appearance Clear (Clear) Urine pH 5.5 (5.0-8.0) Ur Specific [place] 1.031 (1.001-1.035) Urine Protein 1+ H (Negative) Urine Glucose (UA) Negative (Negative) Urine Ketones Negative (Negative) Urine Blood Negative (Negative) Urine Nitrite Negative (Negative) Urine Bilirubin Negative (Negative) Urine Urobilinogen <2.0 (<2.0) mg/dL Ur Leukocyte Esterase Trace H (Negative) Urine RBC 2 (0-5) /hpf Urine WBC 4 (0-5) /hpf Ur Squamous Epith Cells 2 (0-4) /hpf Calcium Oxalate Crystal Occasional H (None) /hpf Hyaline Casts 6 H (0-2) /lpf Urine Mucus Moderate H (None) /hpf Disposition Clinical Impression: Near syncope, Diarrhea Disposition: HOME SELF-CARE Condition: Good Instructions: Near Syncope (ED) Prescriptions: Diphenox-Atrop 2.5-0.025 mg [Lomotil] 2 tab PO QID PRN #12 tab PRN Reason: Diarrhea Referrals: Easton Tripathi DO [Primary Care Provider] - 1-2 days
[2017-04-08 12:42] LABS: Basophils % (A) 1 %; CH 33.1; CHCM 32.9; Eosinophils # (A) 0.1 k/uL (0-0.7); Eosinophils % (A) 2 %; HCT 45.5 % (34.0-46.0); HDW 2.81; HGB 13.9 gm/dL (11.4-16.0); Luc # (Auto) 0.11; Luc % (Auto) 2; Lymphocytes # (A) 1.1 k/uL (1.0-4.8); Lymphocytes % (A) 19 %; MCH 31.1 pg (25.0-35.0); MCHC 30.7 g/dL (31.0-37.0); MCV 101.3 fL (80.0-100.0); Macrocytosis Slight; Mean Platelet Volume 7.8; Monocytes # (A) 0.3 k/uL (0-1.0); Monocytes % (A) 6 %; Neutrophils % (A) 70 %; RBC 4.49 m/uL (3.80-5.40); RDW 14.1 % (11.5-15.5); WBC 5.7 k/uL (3.8-10.6); WBC (Perox) 5.64
[2017-04-08 12:47] VITALS: RESP 16
[2017-04-08 12:55] LABS: Partial Thromboplastin Time 24.4 sec (22.0-30.0); Prothrombin Time 10.3 sec (9.0-12.0)
[2017-04-08 12:59] LABS: ALT 16 U/L (9-52); AST 26 U/L (14-36); Alkaline Phosphatase 163 U/L (38-126); Anion Gap 12 mmol/L; Blood Urea Nitrogen 19 mg/dL (7-17); Calcium 9.6 mg/dL (8.4-10.2); Carbon Dioxide 24 mmol/L (22-30); Chloride 106 mmol/L (98-107); Glucose 103 mg/dL (74-99); Magnesium 1.9 mg/dL (1.6-2.3); Non-African American GFR(MDRD) >60 (>60 ml/min/1.73 sqM); Sodium 142 mmol/L (137-145); Total Bilirubin 0.2 mg/dL (0.2-1.3); Total Protein 7.1 g/dL (6.3-8.2)
[2017-04-08 13:07] LABS: Appearance,Urine Clear (Clear); Bilirubin,Urine Negative (Negative); Calcium Oxalate Crystals,Urine Occasional /hpf; Glucose,Urine (UA) Negative (Negative); Ketones,Urine Negative (Negative); Leukocyte Esterase,Urine Trace (Negative); Mucus,Urine Moderate /hpf; Nitrite,Urine Negative (Negative); PH, Urine 5.5 (5.0-8.0); Particle Count 8086; Protein,Urine 1+ (Negative); RBC,Urine 2 /hpf (0-5); Specific Gravity,Urine 1.031 (1.001-1.035); Squamous Epithelial Cell,Urine 2 /hpf (0-4); UA Billing (MACRO vs. MICRO) MICRO; Urobilinogen,Urine <2.0 mg/dL (<2.0); WBC,Urine 4 /hpf (0-5)
[2017-04-08 13:10] LABS: Creatine Kinase <20 U/L (30-135)
[2017-04-08 13:23] LABS: Creatine Kinase MB 0.3 ng/mL (0.0-2.4); Troponin I <0.012 ng/mL (0.000-0.034)
[2017-04-08 14:20] VITALS: BP 120/62; PULSE 88; TEMP 98.1
== END 2017-04-08 14:20 | disposition home or self-care (01) ==
LOC: EC 11:17
DX: R55 Syncope and collapse (principal); R19.7 Diarrhea, unspecified; E78.5 Hyperlipidemia, unspecified; D64.9 Anemia, unspecified; F41.9 Anxiety disorder, unspecified; F32.9 Major depressive disorder, single episode, unspecified; F43.10 Post-traumatic stress disorder, unspecified; Z87.891 Personal history of nicotine dependence; Z85.3 Personal history of malignant neoplasm of breast; Z79.899 Other long term (current) drug therapy; Z88.1 Allergy status to other antibiotic agents; Z88.2 Allergy status to sulfonamides; Z91.040 Latex allergy status; Z91.048 Other nonmedicinal substance allergy status
CPT/HCPCS: 99284 ×2; 96374 ×2; 96361 ×2; 36415; 80053; 82550; 82553; 83735; 84484; 85025; 85610; 85730; 81001; J2060; 93005

== ENCOUNTER 2017-04-27 11:07 | Day surgery (SDC) | payer MEDICARE ==
[~2017-04-27 11:07] MED LIST changes: +ACETAMINOPHEN TAB 500 MG TAB PO ONE; -LACTATED RINGERS 1,000 ML IV ONE; +MELOXICAM 7.5 MG TAB PO ONE; +ONDANSETRON 4 MG/2 ML VIAL IVP ONE; +ceFAZolin IN SWFI 2 GM/20 ML SYRINGE IVP ONE
[2017-04-27] MEDS ORDERED: HYDROmorphone 0.5 MG/0.5 ML SYRINGE IVP PRN (11:17)
[2017-04-27] MEDS ORDERED: LACTATED RINGERS 1,000 ML IV SCH (11:17)
[2017-04-27] MEDS ORDERED: MIDAZOLAM 2 MG/2 ML VIAL IV PRN (11:17)
[2017-04-27] MEDS ORDERED: DEXAMETHASONE SOD PHOSPHATE 10 MG/ML 1 ML VIAL IV ONE (11:17)
[2017-04-27] MEDS ORDERED: ONDANSETRON 4 MG/2 ML VIAL IVP ONE (11:17)
[2017-04-27 11:26] VITALS: TEMP 98.2
[2017-04-27] MEDS ORDERED: ceFAZolin IN SWFI 2 GM/20 ML SYRINGE IVP ONE (11:30)
[2017-04-27] MEDS ORDERED: LIDOCAINE 1% 20 ML VIAL (10MG/ML) FOR IV START INTRADERMA ONE (11:38)
[2017-04-27] MEDS ORDERED: SCOPOLAMINE 1.5MG/72HR PATCH TRANSDERM ONE (11:45)
[2017-04-27] MEDS ORDERED: fentaNYL (PF) 50 MCG/ML 2 ML AMP ONE (12:19)
[2017-04-27] MEDS ORDERED: PHENYLEPHRINE-0.9% NACL SYG 1 MG/10 ML SYRINGE ONE (12:19)
[2017-04-27] MEDS ORDERED: SUCCINYLCHOLINE CHLORIDE 100 MG/5 ML SYR IV ONE (12:19)
[2017-04-27] MEDS ORDERED: LIDOCAINE 1% INJ 10MG/ML (20 ML MDV) ONE (12:19)
[2017-04-27] MEDS ORDERED: MIDAZOLAM 2 MG/2 ML VIAL ONE (12:19)
[2017-04-27] MEDS ORDERED: ePHEDrine SULFATE/0.9% NACL/PF 50 MG/5 ML SYRINGE IV ONE (12:19)
[2017-04-27] MEDS ORDERED: PROPOFOL 10 MG/ML 20 ML VIAL IV ONE (12:19)
[2017-04-27] MEDS ORDERED: ceFAZolin 1,000 MG in SODIUM CHLORIDE 0.9% 1,000 ML IRRIGATION ONE (13:10)
[2017-04-27] MEDS ORDERED: LACTATED RINGERS 1,000 ML IV ONE (13:45)
--- NOTE | 2017-04-27 14:21 | P.OP ---
Date of Procedure: 04/27/17 Procedure(s) Performed: PREOPERATIVE DIAGNOSES: 1. Left shoulder proximal humerus fracture status post ORIF POSTOPERATIVE DIAGNOSES: 1. Left shoulder proximal humerus fracture status post ORIF 2. Left shoulder rotator cuff noted to be intact PROCEDURES PERFORMED: 1. Left shoulder proximal humerus hardware removal ANESTHESIA: Gen. DAIRY FARMER: Chrissie Domingo PA-C (assistance with exposure, hemostasis, retraction, fixation, closure, dressing) COMPLICATIONS: None ESTIMATED BLOOD LOSS: 100 mL. DISPOSITION: To post-anesthesia care unit INDICATIONS: Britney is a 67-year-old female with a history of falling and sustaining a left shoulder proximal humerus fracture approximately 3 years ago. The fracture has completely healed but the hardware is irritating to the patient and she wishes to have this removed. I have described the steps of the operation as well as potential risks and complications and the patient wishes to proceed. These risks and potential complications are inclusive of, but not limited to: Bleeding, infection, scarring, discomfort, blood vessel and/or nerve damage, stiffness, further fracture, rotator cuff injury, muscular injury to the deltoid, need for prolonged physical therapy, and other risks, including . The patient wishes to proceed and has signed the consent form. PROCEDURE: After appropriate consent was obtained, the patient was taken to the operating room placed in the supine position. Anesthesia was initiated, and after confirmation of adequate anesthesia, the patient was carefully positioned in the beachchair position. Care was taken to make sure that all pressure points were adequately padded. A small bump was placed beneath the operative scapula. Prepping and draping were completed in the usual aseptic fashion, with the arm draped free, using ChloraPrep. Timeout was called, confirming patient identity, side, procedure, and administration of antibiotics. Standard deltopectoral incision was created with a #10 blade from the inferior border of the clavicle, across the medial aspect of the coracoid process, and down to the deltoid insertion of the humerus. Total size of the incision was approximately 7 inches. The incision was deepened using Bovie electrocautery and meticulous hemostasis was obtained. Subcutaneous dissection was carried down to muscular fascia. The cephalic vein was identified and retracted along with the deltoid laterally. Muscular perforators into the pectoralis muscle were carefully identified and cauterized. The deltopectoral interval was then carefully and bluntly and mobilization of the deep surface of the deltoid was accomplished using a Kay elevator. A deltoid retractor was then placed and manual retraction of the pectoralis was performed. Standard self- retaining retractors were applied in the tissues the red stripe adjacent to the strap tendons was incised using cautery and self-retaining retractor was applied beneath the strap tendons. Excellent visualization was accomplished with this method and a small portion of the super area or aspect of the pectoralis tendon was released for good exposure to the humerus. The humeral fracture was completely stable and healed. No evidence of rotator cuff tear was seen. The humeral hardware was easily located. Using cautery, the soft tissue overlying the plate was removed and the screws were removed using power. 2 broken screws were encountered. The heads were carefully collected and set aside, and the shafts of the screws which were embedded in the bone were carefully cored around and removed using a reverse drill sleeve. Both of these broken screws came out fairly easily without incident. C-arm imaging was used to assess final removal of the hardware. Thorough irrigation and final hemostasis was obtained, and final C-arm images were taken and saved. The wound was then thoroughly irrigated with normal saline and the portion of the pectoralis tendon that was released for exposure was repaired using 0 Vicryl suture. Closure of the deltopectoral interval was performed using 0 Vicryl suture followed by 2-0 Vicryl suture in subcu tissues and standard skin closure using Dermabond. Sterile dressing was then applied and the patient's arm was placed into a sling. Patient tolerated the procedure well and taken to recovery room in stable condition. Sponge and needle counts were correct.
--- NOTE | 2017-04-27 14:41 | FL ---
Fluoroscopy HISTORY: Hardware removal 5 seconds fluoroscopy time supplied to the referring clinician. 1 intraoperative C-arm images docume nt the procedure. See dictated report from orthopedic surgery.
--- NOTE | 2017-04-27 14:46 | XR ---
Limited left shoulder HISTORY: Hardware removal Intraoperative C-arm image documents the procedure
[2017-04-27] MEDS ORDERED: oxyCODONE-APAP 5-325MG 1 EACH TAB PO ONE (16:42)
[2017-04-27 17:24] VITALS: RESP 18
[2017-04-27 17:47] VITALS: BP 118/79
[2017-04-27 17:49] VITALS: PULSE 83
== END 2017-04-27 17:58 | disposition home or self-care (01) ==
LOC: OR 11:07
PROVIDERS: ATTEND Orthopaedic Surgery
DX: T85.848A Pain due to other internal prosthetic devices, implants and grafts, initial encounter (principal); Z87.81 Personal history of (healed) traumatic fracture; R45.0 Nervousness; F32.9 Major depressive disorder, single episode, unspecified; J98.4 Other disorders of lung; M79.7 Fibromyalgia; E78.5 Hyperlipidemia, unspecified; M81.0 Age-related osteoporosis without current pathological fracture; M19.90 Unspecified osteoarthritis, unspecified site; M06.9 Rheumatoid arthritis, unspecified; Z79.891 Long term (current) use of opiate analgesic; Z79.899 Other long term (current) drug therapy; Z88.2 Allergy status to sulfonamides; Z88.1 Allergy status to other antibiotic agents; Z91.040 Latex allergy status
CPT/HCPCS: 73020; 20680; J2250; J1100; J0690 ×2; J2405; J2001; J3010; J2370; J0330; J2704

== ENCOUNTER 2017-05-14 15:48 | Emergency (ER) | payer MEDICARE ==
--- NOTE | 2017-05-14 17:44 | ED ---
General Adult HPI - General Chief complaint: Extremity Injury, Upper Stated complaint: shoulder pain Time Seen by Provider: 05/14/17 17:08 Source: patient, RN notes reviewed Mode of arrival: ambulatory Limitations: no limitations - History of Present Illness Initial comments: This is a 67-year-old female who presents to the emergency department for evaluation of left shoulder pain. Patient states that she shattered her left proximal humerus in 2014. She had rods and screws placed at that time. Patient states that some of the screws came loose and she had the hardware removed for her left shoulder on April 27. Patient states she has follow-up with her orthopedic surgeon next week. She states that today she opened her closet to get out a pair of jeans and the closet door struck her left shoulder. Patient states that her shoulder is now painful and she has decreased range of motion more so than normal. Denies any other injury or trauma. Denies fever , chills, chest pain, shortness of breath, abdominal pain, nausea or vomiting, constipation or diarrhea, dysuria or hematuria, numbness or tingling, headache or vision changes. - Related Data Home Medications Medication Instructions Recorded Confirmed Folic Acid 1 mg PO DAILY 10/17/13 05/14/17 Atorvastatin [Lipitor] 20 mg PO DAILY 09/21/14 05/14/17 Calcium Carbonate/Vitamin D3 2 tab PO DAILY 05/16/15 05/14/17 [Calcium 600-Vit D3 400 Tablet] Ascorbic Acid [Vitamin C] 500 mg PO DAILY 12/31/15 05/14/17 buPROPion XL [Wellbutrin XL] 150 mg PO DAILY 02/04/16 05/14/17 Lidocaine 5% Oint [Xylocaine 5% 1 applic TOPICAL TID PRN 04/13/16 05/14/17 Oint] Cyanocobalamin [Vitamin B-12] 500 mcg PO DAILY 06/08/16 05/14/17 Venlafaxine HCl [Effexor XR] 225 mg PO DAILY 03/02/17 05/14/17 Previous Rx's Medication Instructions Recorded Gabapentin [Neurontin] 400 mg PO Q8H #90 cap 01/10/17 Morphine Sulfate ER [Ms Contin] 15 mg PO Q8H #90 tab 01/10/17 oxyCODONE-APAP 5-325MG [Percocet 1 tab PO Q6HR PRN #120 tab 01/10/17 5-325 mg] Ondansetron Odt [Zofran ODT] 4 mg PO Q8HR PRN #10 tab 03/02/17 Fludrocortisone [Florinef] 0.1 mg PO BID #60 tab 03/16/17 Diphenox-Atrop 2.5-0.025 mg 2 tab PO QID PRN #12 tab 04/08/17 [Lomotil] Allergies Allergy/AdvReac Type Severity Reaction Status Date / Time Sulfa (Sulfonamide Allergy Severe Rash/Hives Verified 05/14/17 16:56 Antibiotics) Tetracyclines Allergy Severe Rash/Hives Verified 05/14/17 16:56 latex Allergy Rash/Hives Verified 05/14/17 16:56 TIDE AND EXTRA LAUNDRY SOAP Allergy Rash/Hives Uncoded 05/14/17 15:53 Review of Systems ROS Statement: Those systems with pertinent positive or pertinent negative responses have been documented in the HPI. ROS Other: All systems not noted in ROS Statement are negative. Past Medical History Past Medical History: Cancer, COPD, Fibromyalgia, GI Bleed, Hyperlipidemia, Musculoskeletal Disorder, Osteoarthritis (OA), Rheumatoid Arthritis (RA) Additional Past Medical History / Comment(s): past HX MIGRAINES.falls, CHRONIC BACK PAIN, DDD. CERVICAL AND BREAST CA." hx hep a and b". Anemia hx blood transfusions and iron infusions, HX GI BLEED. HAD BRYCE PROC. HX COLON POLYPS-benign, stress test 2016-wnl. osteoporosis,"tremors- have eased up a bit", t11 fx, chronic diarrhea, syncope. History of Any Multi-Drug Resistant Organisms: None Reported Past Surgical History: Orthopedic Surgery Additional Past Surgical History / Comment(s): CERVICAL FUSION; LUMBAR FUSION; ORIF of Humerus, WITH ABDIFATAH/SCREWS. BREAST REDUCTION 2009.-had non healing wound afterwards then had wound closure and skin graft LT LUMPECTOMY X2, 1999 and 2ND IN 2003 WAS CA. RT TYMPANOPLASTY. D&C. EXC Cataract RITU. BRYCE FUNDLAPLASTY for hernia . Left breast mastectomy 2016 Past Anesthesia/Blood Transfusion Reactions: No Reported Reaction, Family History of Problems w/ Anesthesia Additional Past Anesthesia/Blood Transfusion Reaction / Comment(s): SISTER TAKES LONGER TO AWAKEN, YEARS AGO. Past Psychological History: Anxiety, Depression, Panic Disorder, PTSD Smoking Status: Former smoker Past Alcohol Use History: None Reported Past Drug Use History: None Reported - Past Family History Father Family Medical History: Congestive Heart Failure (CHF), COPD Additional Family Medical History / Comment(s): at age 72 Mother Family Medical History: Myocardial Infarction ([place]) Additional Family Medical History / Comment(s): 1987 age 57 mi General Exam - General Exam Comments Initial Comments: General: Awake and alert, well-developed; in no apparent distress. HEENT: Head atraumatic, normocephalic. Pupils are equal, round and reactive to light. Extraocular movements intact. Oropharynx moist without erythema or exudate. Neck: Supple. Normal ROM. Cardiovascular: Regular rate and rhythm. No murmurs, rubs or gallops. Chest symmetrical. Respiratory: Lungs clear to auscultation bilaterally. No wheezes, rales or rhonchi. Normal respiratory effort with no use of accessory muscles. Musculoskeletal: Limited range of motion of left shoulder due to pain from injury and previous surgery. There is tenderness on palpation of distal humerus. Surgical scar is intact and well-healed. Sensation is intact. Radial pulses are 2+ equal and palpable bilaterally. Skin: [place], warm and dry without rashes or lesions. Neurological: Alert and oriented x3. CN II-XII grossly intact. Speech is fluent and answers are appropriate. No focal neuro deficits. Psychiatric: Normal mood and affect. No overt signs of depression or anxiety noted. Limitations: no limitations Course Vital Signs 05/14/17 15:50 Temperature 97.8 F Pulse Rate 86 Respiratory 20 Rate Blood Pressure 142/99 O2 Sat by Pulse 100 Oximetry Medical Decision Making - Medical Decision Making This is a 67-year-old female who presents to the emergency department with chief complaint of left shoulder pain. She shattered her left distal humerus in 2014. Patient had hardware removed on April 27, 2017. She has a follow-up with her orthopedic surgeon next week. Patient states that this morning she hit her shoulder on a closet door and is in pain. This case was discussed with attending physician, Dr. Bey. Reviewed x-ray and previous x-ray. Recommended sling and follow-up with her orthopedic surgeon. Patient will be discharged home. Patient rates her current pain as 10/10. Given a low dose of Dilaudid while in the emergency department. Patient states she is not driving and has a ride. She is in no acute distress and is neurovascularly intact. All questions were answered. - Radiology Data Radiology results: report reviewed X-ray left shoulder findings: There is an old fracture of the left humeral neck. There is normal at the plate and screws compared to old exam. There is possibly an acute fracture. There is no dislocation. There is calcification at the AC joint and deformity of the lateral end of the clavicle that could be due to an old ununited fracture or calcification. Impression: Old ununited humeral neck fracture. The possibility of an acute fracture cannot be excluded. The hardware has been apparently removed since the chest x-ray of . Disposition Clinical Impression: Left shoulder pain Disposition: HOME SELF-CARE Condition: Good Instructions: Proximal Humerus Fracture (ED) Additional Instructions: Please follow up with your orthopedic surgeon as soon as possible. Please follow up with primary care provider within 1-2 days. Return to emergency department if symptoms should worsen or any concerns arise. Referrals: Easton Tripathi DO [Primary Care Provider] - 1-2 days Time of Disposition: 18:20
--- NOTE | 2017-05-14 17:57 | XR ---
EXAMINATION TYPE: XR shoulder complete LT DATE OF EXAM: 05/14/2017 COMPARISON: 04/05/2014 HISTORY: Pain TECHNIQUE: 3 views FINDINGS: There is an old fracture of the left humeral neck. There is been removal of the plate and s crews compared to old exam. There is possibly an acute fracture. There is no dislocation. There is ca lcification at the AC joint and deformity of the lateral end of the clavicle that could be due to old ununited fracture with calcification. IMPRESSION: Old ununited humeral neck fracture. The possibility of an acute fracture cannot be exclud ed. The hardware has been apparently removed since the chest x-ray of 05/02/2016.
[2017-05-14 18:04] VITALS: BP 148/92; PULSE 78; RESP 18; TEMP 100.2
[2017-05-14] MEDS ORDERED: HYDROmorphone 2 MG/ML 1 ML SYRINGE IM STA (18:22)
== END 2017-05-14 18:33 | disposition home or self-care (01) ==
LOC: EC 15:48
DX: M25.512 Pain in left shoulder (principal); E78.5 Hyperlipidemia, unspecified; F32.9 Major depressive disorder, single episode, unspecified; F41.9 Anxiety disorder, unspecified; Z87.891 Personal history of nicotine dependence; Z98.1 Arthrodesis status; Z98.890 Other specified postprocedural states; Z85.3 Personal history of malignant neoplasm of breast; Z85.41 Personal history of malignant neoplasm of cervix uteri; Z86.2 Personal history of diseases of the blood and blood-forming organs and certain disorders involving the immune mechanism; Z91.09 Other allergy status, other than to drugs and biological substances; Z88.2 Allergy status to sulfonamides; Z88.1 Allergy status to other antibiotic agents; Z91.040 Latex allergy status; Z79.899 Other long term (current) drug therapy
CPT/HCPCS: 73030; 99283; 96372; J1170

== ENCOUNTER 2017-06-06 15:11 | Observation (INO) | payer MEDICARE ==
[2017-06-06] MEDS ORDERED: SODIUM CHLORIDE 0.9% 500 ML IV STA (15:48)
[2017-06-06] MEDS ORDERED: HYDROmorphone 1 MG/ML 1 ML SYRINGE IVP STA (15:49)
[2017-06-06 16:07] LABS: Basophils # (A) 0.1 k/uL (0-0.2); Basophils % (A) 1 %; Eosinophils # (A) 0.1 k/uL (0-0.7); Eosinophils % (A) 2 %; HCT 40.4 % (34.0-46.0); HGB 13.3 gm/dL (11.4-16.0); Lymphocytes # (A) 1.4 k/uL (1.0-4.8); Lymphocytes % (A) 17 %; MCH 31.2 pg (25.0-35.0); MCV 94.6 fL (80.0-100.0); Mean Platelet Volume 7.4; Monocytes # (A) 0.6 k/uL (0-1.0); Monocytes % (A) 7 %; Neutrophils # (A) 5.6 k/uL (1.3-7.7); Neutrophils % (A) 71 %; Platelet Count 374 k/uL (150-450); RBC 4.27 m/uL (3.80-5.40); WBC 7.9 k/uL (3.8-10.6)
[2017-06-06 16:12] LABS: INR 1.1 (<1.2); Partial Thromboplastin Time 23.6 sec (22.0-30.0); Prothrombin Time 10.8 sec (9.0-12.0)
[2017-06-06 16:13] LABS: ALT 27 U/L (9-52); AST 22 U/L (14-36); Albumin 3.8 g/dL (3.5-5.0); Alkaline Phosphatase 122 U/L (38-126); Anion Gap 10 mmol/L; Blood Urea Nitrogen 13 mg/dL (7-17); Calcium 10.3 mg/dL (8.4-10.2); Carbon Dioxide 26 mmol/L (22-30); Chloride 102 mmol/L (98-107); Glucose 71 mg/dL (74-99); Magnesium 2.1 mg/dL (1.6-2.3); Potassium 4.5 mmol/L (3.5-5.1); Sodium 138 mmol/L (137-145); Total Bilirubin 0.2 mg/dL (0.2-1.3); Total Protein 6.7 g/dL (6.3-8.2)
[2017-06-06] MEDS: SODIUM CHLORIDE 0.9% 1,000 ML IV STA ×2 (16:15→22:49)
[2017-06-06 16:23] LABS: Creatine Kinase <20 U/L (30-135)
[2017-06-06 16:35] LABS: Creatine Kinase MB <0.2 ng/mL (0.0-2.4); Troponin I <0.012 ng/mL (0.000-0.034)
--- NOTE | 2017-06-06 16:40 | ED ---
General Adult HPI - General Chief complaint: Syncope Stated complaint: Syncope Time Seen by Provider: 06/06/17 15:12 Source: patient, RN notes reviewed, old records reviewed Mode of arrival: EMS Limitations: no limitations - History of Present Illness Initial comments: 67-year-old female presents for evaluation of generalized weakness and syncopal episodes. Patient states she has a history of syncope. States she normally has these episodes when standing too fast. She states she has been attempting to stand more slowly, however she's had 3 episodes in the past one week. Patient also complains of cough, nasal congestion. Denies fever but complains of chills. She denies vomiting but states she's had some nausea. Patient also has history of chronic diarrhea. This is unchanged. Patient is complaining of left shoulder pain status post orthopedic surgery. Regarding the patient's syncopal episodes. She states this is a known condition for her, she has an implantable licensed physical therapist assistant. She has been taking sodium pills. Patient has had some central chest pain. Pain is minimal at the time my evaluation. Describes it as dull aching pain. This is associated with some mild shortness of breath and nausea. Denies headache at this time. Patient denies any injury from the falls. - Related Data Home Medications Medication Instructions Recorded Confirmed Folic Acid 1 mg PO DAILY 10/17/13 06/06/17 Atorvastatin [Lipitor] 20 mg PO DAILY 09/21/14 06/06/17 Calcium Carbonate/Vitamin D3 2 tab PO DAILY 05/16/15 06/06/17 [Calcium 600-Vit D3 400 Tablet] Ascorbic Acid [Vitamin C] 500 mg PO DAILY 12/31/15 06/06/17 buPROPion XL [Wellbutrin XL] 150 mg PO DAILY 02/04/16 06/06/17 Cyanocobalamin [Vitamin B-12] 500 mcg PO DAILY 06/08/16 06/06/17 Venlafaxine HCl [Effexor XR] 225 mg PO DAILY 03/02/17 06/06/17 Butalb/APAP/Caff 50-325-40Mg 1 tab PO Q4HR PRN 06/06/17 06/06/17 [Fioricet 50-325-40] Previous Rx's Medication Instructions Recorded Gabapentin [Neurontin] 400 mg PO Q8H #90 cap 01/10/17 Morphine Sulfate ER [Ms Contin] 15 mg PO Q8H #90 tab 01/10/17 oxyCODONE-APAP 5-325MG [Percocet 1 tab PO Q6HR PRN #120 tab 01/10/17 5-325 mg] Fludrocortisone [Florinef] 0.1 mg PO BID #60 tab 03/16/17 Allergies Allergy/AdvReac Type Severity Reaction Status Date / Time Sulfa (Sulfonamide Allergy Severe Rash/Hives Verified 06/06/17 16:03 Antibiotics) Tetracyclines Allergy Severe Rash/Hives Verified 06/06/17 16:03 latex Allergy Rash/Hives Verified 06/06/17 16:03 lorazepam [From Ativan] AdvReac Confusion Verified 06/06/17 16:03 TIDE AND EXTRA LAUNDRY SOAP Allergy Rash/Hives Uncoded 06/06/17 15:22 Review of Systems ROS Statement: Those systems with pertinent positive or pertinent negative responses have been documented in the HPI. ROS Other: All systems not noted in ROS Statement are negative. Past Medical History Past Medical History: Cancer, COPD, Fibromyalgia, GI Bleed, Hyperlipidemia, Musculoskeletal Disorder, Osteoarthritis (OA), Rheumatoid Arthritis (RA) Additional Past Medical History / Comment(s): past HX MIGRAINES.falls, CHRONIC BACK PAIN, DDD. CERVICAL AND BREAST CA." hx hep a and b". Anemia hx blood transfusions and iron infusions, HX GI BLEED. HAD BRYCE PROC. HX COLON POLYPS-benign, stress test 2016-wnl. osteoporosis,"tremors- have eased up a bit", t11 fx, chronic diarrhea, syncope. History of Any Multi-Drug Resistant Organisms: None Reported Past Surgical History: Section, Hysterectomy, Orthopedic Surgery, Tonsillectomy Additional Past Surgical History / Comment(s): CERVICAL FUSION; LUMBAR FUSION; ORIF of Humerus, WITH ABDIFATAH/SCREWS. BREAST REDUCTION 2009.-had non healing wound afterwards then had wound closure and skin graft LT mastectomy 2015, 1999 and 2ND IN 2003 WAS CA. RT TYMPANOPLASTY. D&C. EXC Cataract RITU. BRYCE FUNDLAPLASTY for hernia . 04/27/2017 removal of hardward from left shoulder with dr felix. loop recorder 2013. Left breast mastectomy 2016 Past Anesthesia/Blood Transfusion Reactions: No Reported Reaction, Family History of Problems w/ Anesthesia Additional Past Anesthesia/Blood Transfusion Reaction / Comment(s): SISTER TAKES LONGER TO AWAKEN, YEARS AGO. Past Psychological History: Anxiety, Depression, Panic Disorder, PTSD Smoking Status: Former smoker Past Alcohol Use History: None Reported Past Drug Use History: None Reported - Past Family History Father Family Medical History: Congestive Heart Failure (CHF), COPD Additional Family Medical History / Comment(s): at age 72 Mother Family Medical History: Myocardial Infarction ([place]) Additional Family Medical History / Comment(s): 1987 age 57 mi General Exam Limitations: no limitations General appearance: alert, in no apparent distress Head exam: Present: atraumatic, normocephalic Eye exam: Present: normal appearance, PERRL ENT exam: Present: normal exam Neck exam: Present: normal inspection. Absent: tenderness, meningismus Respiratory exam: Present: normal lung sounds bilaterally. Absent: respiratory distress, wheezes Cardiovascular Exam: Present: regular rate, normal rhythm GI/Abdominal exam: Present: soft. Absent: distended, tenderness Extremities exam: Present: normal inspection, normal capillary refill. Absent: pedal edema Back exam: Present: normal inspection, full ROM. Absent: tenderness Neurological exam: Present: alert, oriented X3, CN II-XII intact. Absent: motor sensory deficit Psychiatric exam: Present: normal affect, normal mood Skin exam: Present: warm, dry, intact. Absent: cyanosis, diaphoretic Course Vital Signs 06/06/17 06/06/17 06/06/17 15:15 16:19 16:23 Temperature 98.9 F Pulse Rate 76 76 Pulse Rate [ 88 Sitting] Pulse Rate [ 99 Standing] Pulse Rate [ 81 Supine] Respiratory 16 16 Rate Blood Pressure 174/97 167/74 Blood Pressure 162/55 [Sitting] Blood Pressure 145/83 [Standing] Blood Pressure 168/74 [Supine] O2 Sat by Pulse 100 99 Oximetry EKG Findings - EKG Comments: EKG Findings:: EKG shows normal sinus rhythm, ventricular rate 70, ID interval 152, QRS duration 74, QTC 425 no signs of arrhythmia, or ischemia Medical Decision Making - Medical Decision Making 67-year-old female presenting for evaluation of syncope and chest pain. EKG shows no acute signs of ischemia or arrhythmia. Laboratory studies reveal normal white blood cell count, stable hemoglobin, normal electrolytes, negative troponin. Chest x-ray shows no acute findings. Urinalysis pending, and influenza are pending. Patient will be placed in observation for further evaluation of syncope and chest pain. - Lab Data Result diagrams: 06/06/17 15:33 06/06/17 15:33 Lab Results 06/06/17 06/06/17 06/06/17 Range/Units 15:33 15:33 15:33 WBC 7.9 (3.8-10.6) k/uL RBC 4.27 (3.80-5.40) m/uL Hgb 13.3 (11.4-16.0) gm/dL Hct 40.4 (34.0-46.0) % MCV 94.6 (80.0-100.0) fL MCH 31.2 (25.0-35.0) pg MCHC 33.0 (31.0-37.0) g/dL RDW 14.0 (11.5-15.5) % Plt Count 374 (150-450) k/uL Neutrophils % 71 % Lymphocytes % 17 % Monocytes % 7 % Eosinophils % 2 % Basophils % 1 % Neutrophils # 5.6 (1.3-7.7) k/uL Lymphocytes # 1.4 (1.0-4.8) k/uL Monocytes # 0.6 (0-1.0) k/uL Eosinophils # 0.1 (0-0.7) k/uL Basophils # 0.1 (0-0.2) k/uL PT (9.0-12.0) sec INR (<1.2) APTT (22.0-30.0) sec Sodium 138 (137-145) mmol/L Potassium 4.5 (3.5-5.1) mmol/L Chloride 102 (98-107) mmol/L Carbon Dioxide 26 (22-30) mmol/L Anion Gap 10 mmol/L BUN 13 (7-17) mg/dL Creatinine 0.62 (0.52-1.04) mg/dL Est GFR (MDRD) Af Amer >60 (>60 ml/min/1.73 sqM) Est GFR (MDRD) Non-Af >60 (>60 ml/min/1.73 sqM) Glucose 71 L (74-99) mg/dL Calcium 10.3 H (8.4-10.2) mg/dL Magnesium 2.1 (1.6-2.3) mg/dL Total Bilirubin 0.2 (0.2-1.3) mg/dL AST 22 (14-36) U/L ALT 27 (9-52) U/L Alkaline Phosphatase 122 (38-126) U/L Total Creatine Kinase <20 L (30-135) U/L CK-MB (CK-2) <0.2 (0.0-2.4) ng/mL CK-MB (CK-2) Rel Index Troponin I <0.012 (0.000-0.034) ng/mL Total Protein 6.7 (6.3-8.2) g/dL Albumin 3.8 (3.5-5.0) g/dL 06/06/17 Range/Units 15:33 WBC (3.8-10.6) k/uL RBC (3.80-5.40) m/uL Hgb (11.4-16.0) gm/dL Hct (34.0-46.0) % MCV (80.0-100.0) fL MCH (25.0-35.0) pg MCHC (31.0-37.0) g/dL RDW (11.5-15.5) % Plt Count (150-450) k/uL Neutrophils % % Lymphocytes % % Monocytes % % Eosinophils % % Basophils % % Neutrophils # (1.3-7.7) k/uL Lymphocytes # (1.0-4.8) k/uL Monocytes # (0-1.0) k/uL Eosinophils # (0-0.7) k/uL Basophils # (0-0.2) k/uL PT 10.8 (9.0-12.0) sec INR 1.1 (<1.2) APTT 23.6 (22.0-30.0) sec Sodium (137-145) mmol/L Potassium (3.5-5.1) mmol/L Chloride (98-107) mmol/L Carbon Dioxide (22-30) mmol/L Anion Gap mmol/L BUN (7-17) mg/dL Creatinine (0.52-1.04) mg/dL Est GFR (MDRD) Af Amer (>60 ml/min/1.73 sqM) Est GFR (MDRD) Non-Af (>60 ml/min/1.73 sqM) Glucose (74-99) mg/dL Calcium (8.4-10.2) mg/dL Magnesium (1.6-2.3) mg/dL Total Bilirubin (0.2-1.3) mg/dL AST (14-36) U/L ALT (9-52) U/L Alkaline Phosphatase (38-126) U/L Total Creatine Kinase (30-135) U/L CK-MB (CK-2) (0.0-2.4) ng/mL CK-MB (CK-2) Rel Index Troponin I (0.000-0.034) ng/mL Total Protein (6.3-8.2) g/dL Albumin (3.5-5.0) g/dL Disposition Clinical Impression: Chronic pain, Syncope Disposition: ADMITTED IP TO THIS [facility] Condition: Stable Referrals: Easton Tripathi DO [Primary Care Provider] - 1-2 days Decision to Admit Reason: Admit from EC Decision Date: 06/06/17 Decision Time: 17:20
--- NOTE | 2017-06-06 16:51 | XR ---
EXAMINATION TYPE: XR chest 2V DATE OF EXAM: 06/06/2017 COMPARISON: 05/18/2017 HISTORY: 67-year-old female with syncope TECHNIQUE: AP and lateral views FINDINGS: Slight rightward patient rotation. Loop recorder projecting at the left base. Heart is normal size. B zander vasculature within normal limits. No consolidation or pleural effusion. ACDF hardware. Seems to b e a chronic ununited fracture at the left surgical neck of the humerus. Posttraumatic/postsurgical de formity of the distal left clavicle. Surgical clips below the GE junction. IMPRESSION: Chronic changes without acute cardiopulmonary process.
[2017-06-06] MEDS ORDERED: HYDROcodone/APAP 5-325MG 1 EACH TAB PO PRN (17:13)
[2017-06-06] MEDS ORDERED: IBUPROFEN 400 MG TAB PO PRN (17:13)
[2017-06-06] MEDS ORDERED: ONDANSETRON 4 MG/2 ML VIAL IVP PRN (17:13)
[2017-06-06] MEDS ORDERED: NALOXONE 0.4 MG/ML 1 ML VIAL IV PRN (17:13)
[2017-06-06] MEDS ORDERED: ASPIRIN 325 MG TAB PO STA (17:15)
[2017-06-06] MEDS ORDERED: SODIUM CHLORIDE 0.9% 1,000 ML IV SCH (17:15)
[2017-06-06 17:25] LABS: Appearance,Urine Clear (Clear); Bilirubin,Urine Negative (Negative); Blood,Urine Negative (Negative); Color,Urine Yellow; Glucose,Urine (UA) Negative (Negative); Ketones,Urine Negative (Negative); Leukocyte Esterase,Urine Negative (Negative); Nitrite,Urine Negative (Negative); Protein,Urine Negative (Negative); Specific Gravity,Urine 1.012 (1.001-1.035); Urobilinogen,Urine <2.0 mg/dL (<2.0)
[2017-06-06] MEDS: GABAPENTIN 400 MG CAP PO SCH ×2 (18:50→22:44)
[2017-06-06] MEDS: FLUDROCORTISONE 0.1 MG TAB PO SCH (20:40)
[2017-06-06 21:35] LABS: Creatine Kinase <20 U/L (30-135)
[2017-06-06 21:48] LABS: Creatine Kinase MB <0.2 ng/mL (0.0-2.4); Troponin I <0.012 ng/mL (0.000-0.034)
--- NOTE | 2017-06-06 22:03 | HP ---
HISTORY AND PHYSICAL DATE OF ADMISSION: 06/06/2017 PRESENTING COMPLAINT: Passed out. HISTORY OF PRESENTING COMPLAINT: This is a 67-year-old patient who was not too long ago in the hospital, follows with Dr. Tripathi. Chronic stable medical conditions include fibromyalgia, osteoarthritis, depression, hyperlipidemia, rheumatoid arthritis and also known to have orthostatic hypertension. The patient has also got peripheral neuropathy. The patient has also got sleep deprivation and poor sleep hygiene. Her chronic rheumatoid arthritis is being followed by Dr. Don and the patient is rather anxious. The patient stated about 3-4 days ago, she had some loose stools about 3-4 times and she states that this has been happening for quite some time, but now when she tries to sit up, she gets dizzy, then gets very lightheaded and actually on a couple of occasions she has passed out. She thinks her oral intake is sufficient and she is finding it difficult to get about. I checked a bedside manual orthostatic. The patient was not orthostatic, even though she was feeling that sensation coming on. REVIEW OF SYSTEMS: CONSTITUTIONAL: Tired. HEENT: None. RESPIRATORY: None. CARDIOVASCULAR: None. GASTROINTESTINAL: As above. No further diarrhea for the last 3 days. GENITOURINARY: None. MUSCULOSKELETAL: Pain in different joints. DERMATOLOGICAL: None. HEMATOLOGIC: None. LYMPHATIC: None. PSYCHIATRY: Anxious. NEUROLOGICAL: Does not sleep well and peripheral neuropathy. PAST MEDICAL HISTORY: Fibromyalgia, osteoarthritis, depression, hyperlipidemia, rheumatoid arthritis, peripheral neuropathy, chronic anemia, orthostatic hypertension. PAST SURGICAL HISTORY: , hysterectomy, surgery, tonsillectomy, cervical fusion, lumbar fusion, ORIF of the humerus, breast reduction in 2009, left mastectomy 2015, right tympanoplasty, D and C, excision of cataract, Jarek fundoplasty for hernia, removal of hardware from left shoulder by Dr. Zee, loop recorder, left breast mastectomy July 2016. HOME MEDICATIONS: 1. Percocet 5, 1 tablet q.6 p.r.n. 2. Wellbutrin XL 150 mg p.o. daily. 3. Effexor XR 225 mg p.o. daily. 4. MS Contin 50 mg q.8. 5. Neurontin 400 mg p.o. q.8. 6. Folic acid 1 mg p.o. daily. 7. Florinef 0.1 mg p.o. b.i.d. 8. Vitamin B12 500 mcg p.o. daily. 9. Calcium with vitamin D3, 1-2 tablets p.o. daily. 10.Fioricet 1 tab q.4 p.r.n. 11.Lipitor 40 mg p.o. daily. 12.Vitamin C 500 mg p.o. daily. ALLERGIES: To SULFA, TETRACYCLINE, LATEX, LORAZEPAM. EXAMINATION: Temperature 98.2, pulse 74, respirations 16, blood pressure 130/78 lying down and 132/82 standing up manually. GENERAL APPEARANCE: Average build, lying in bed, anxious-appearing. EYES: Pupils equal. Conjunctivae normal. HEENT: Oral cavity normal. NECK: JVD not raised. Mass not palpable. RESPIRATORY: Effort normal. Lungs are clear. CARDIOVASCULAR: First and second sounds normal. No edema. ABDOMEN: Soft, nontender. Liver and spleen not palpable. LYMPHATIC: No lymph node palpable in neck or axillae. PSYCHIATRY: Alert and oriented x3. Mood and affect normal. NEUROLOGICAL: Pupils equal. Cranial nerves grossly intact. Power and sensation grossly intact. INVESTIGATIONS: White count 7.9, hemoglobin 13.3. Potassium 4.5, BUN and creatinine normal, glucose 71. Calcium 10.3. Troponin negative. EKG: Normal sinus rhythm. ASSESSMENT: 1. This is a patient who presents with recurrent syncopal and presyncopal episodes. The patient does feel dizzy on standing up. I just checked the patient's manual orthostatics, but the patient is not orthostatic, though she had the symptoms. The patient already had a loop recorder when she was here 3 weeks ago. Interrogation of loop recorder was negative, but she tells me patient has not had a tilt-table test before. That may be useful. At the same time, patient may have an element of dehydration, given her calcium is up, and will give IV fluids and see how she does, though like I said, not orthostatic right now. 2. Chronic sleep deprivation with poor sleep hygiene persists. 3. Chronic fibromyalgia. 4. . 5. Hyperlipidemia. 6. Chronic rheumatoid arthritis followed by Dr. Don. 7. Peripheral neuropathy, probably from severe rheumatoid arthritis. 8. Chronic anemia. 9. Chronic pain syndrome. 10.Anxiety disorder, not otherwise specified. PLAN: The patient will be given IV fluids. Home medications are resumed. Will consult Dr. Duran for a tilt-table test, as I do not see one has been done. This was discussed with the patient. Questions were answered. MMRAVINL / IJN: [id number] /
[2017-06-06] MEDS: MORPHINE SULFATE ER 15 MG TABLET PO SCH (22:41)
[2017-06-06] MEDS: oxyCODONE-APAP 5-325MG 1 EACH TAB PO PRN (22:42)
[2017-06-07 03:34] LABS: Creatine Kinase <20 U/L (30-135)
[2017-06-07 03:48] LABS: Creatine Kinase MB <0.2 ng/mL (0.0-2.4); Troponin I <0.012 ng/mL (0.000-0.034)
[2017-06-07] MEDS: MORPHINE SULFATE ER 15 MG TABLET PO SCH ×2 (06:47→14:43)
[2017-06-07] MEDS: GABAPENTIN 400 MG CAP PO SCH (08:28)
[2017-06-07] MEDS: FLUDROCORTISONE 0.1 MG TAB PO SCH (08:28)
[2017-06-07] MEDS: oxyCODONE-APAP 5-325MG 1 EACH TAB PO PRN (08:29)
[2017-06-07 08:55] VITALS: BMI 20.5
[2017-06-07] MEDS ORDERED: buPROPion XL 150 MG TAB.ER.24H PO SCH (09:00)
[2017-06-07] MEDS ORDERED: ENOXAPARIN 40 MG/0.4 ML SYRINGE SQ SCH (09:00)
[2017-06-07] MEDS ORDERED: ATORVASTATIN 20 MG TAB PO SCH (09:00)
[2017-06-07] MEDS ORDERED: VENLAFAXINE HCL ER 75 MG CAP PO SCH (09:00)
--- NOTE | 2017-06-07 09:55 | P.CRDCN ---
History of Present Illness Consult date: 06/07/17 History of present illness: Mrs. Neely is a pleasant 67-year-old female. Past medical history significant for hypertension, fibromyalgia, osteoarthritis, depression, dyslipidemia and peripheral neuropathy. She also has a loop recorder in place for history or syncope. This was placed 08/[address] Duran. We have been asked to see her in consultation for complaints of syncope. She also has had approximately 4 days of diarrhea. She denies chest pain, shortness of breath, palpitations or nausea. She was here earlier this month for similar episode and was cleared per cardiology for an acute event and loop recorder interrogation at that time was negative for arrhythmia. Minor orthostatic changes seen on admission. She received a normal saline bolus and she became normotensive with position changes. She also received a dose of IV Dilaudid. EKG on arrival reveals sinus mechanism with no acute ST or T-wave abnormalities. Chest xray negative for an acute cardiopulmonary process. Laboratory data reviewed, cardiac enzymes negative x3. Blood glucose 71. Current cardiac medications include atorvastatin 20 mg daily. Review of Systems At the time and by exam: CONSTITUTIONAL: Denies fever. Denies chills. EYES: Denies blurred vision. Denies vision changes. Denies eye pain. EARS, NOSE, MOUTH & THROAT: Denies headache. Denies sore throat. Denies ear pain. CARDIOVASCULAR: Denies chest pain. Denies shortness of breath. Denies orthopnea. Denies PND. Denies palpitations. RESPIRATORY: Denies cough. GASTROINTESTINAL: Denies abdominal pain. Denies diarrhea. Denies constipation. Denies nausea. Denies vomiting. MUSCULOSKELETAL: Denies myalgias. INTEGUMENTARY: Denies pruitis. Denies rash. NEUROLOGIC: Denies numbness. Denies tingling. Denies weakness. PSYCHIATRIC: Denies anxiety. Denies depression. ENDOCRINE: Denies fatigue. Denies weight change. Denies polydipsia. Denies polyurina. GENITOURINARY: Denies burning, hematuria or urgency with micturation. HEMATOLOGIC: Denies history of anemia. Denies bleeding. Past Medical History Past Medical History: Cancer, COPD, Fibromyalgia, GI Bleed, Hyperlipidemia, Musculoskeletal Disorder, Osteoarthritis (OA), Rheumatoid Arthritis (RA), Syncope Additional Past Medical History / Comment(s): past HX MIGRAINES.falls, CHRONIC BACK PAIN, DDD. CERVICAL AND BREAST CA." hx hep a and b". Anemia hx blood transfusions and iron infusions, HX GI BLEED. HAD BRYCE PROC. HX COLON POLYPS-benign, stress test 2016-wnl. osteoporosis,"tremors- have eased up a bit", t11 fx. History of Any Multi-Drug Resistant Organisms: None Reported Past Surgical History: Section, Hysterectomy, Orthopedic Surgery, Tonsillectomy Additional Past Surgical History / Comment(s): CERVICAL FUSION; LUMBAR FUSION; ORIF of Humerus, WITH ABDIFATAH/SCREWS. BREAST REDUCTION 2009.-had non healing wound afterwards then had wound closure and skin graft LT mastectomy 2015, 1999 and 2ND IN 2003 WAS CA. RT TYMPANOPLASTY. D&C. EXC Cataract RITU. BRYCE FUNDLAPLASTY for hernia . 04/27/2017 removal of hardward from left shoulder with dr felix. loop recorder 2013. Left breast mastectomy 2016 Past Anesthesia/Blood Transfusion Reactions: No Reported Reaction, Family History of Problems w/ Anesthesia Additional Past Anesthesia/Blood Transfusion Reaction / Comment(s): SISTER TAKES LONGER TO AWAKEN, YEARS AGO. Smoking Status: Former smoker - Past Family History Father Family Medical History: Congestive Heart Failure (CHF), COPD Additional Family Medical History / Comment(s): at age 72 Mother Family Medical History: Myocardial Infarction ([place]) Additional Family Medical History / Comment(s): 1987 age 57 mi Medications and Allergies Home Medications Medication Instructions Recorded Confirmed Type Folic Acid 1 mg PO DAILY 10/17/13 06/06/17 History Atorvastatin [Lipitor] 20 mg PO DAILY 09/21/14 06/06/17 History Calcium Carbonate/Vitamin D3 2 tab PO DAILY 05/16/15 06/06/17 History [Calcium 600-Vit D3 400 Tablet] Ascorbic Acid [Vitamin C] 500 mg PO DAILY 12/31/15 06/06/17 History buPROPion XL [Wellbutrin XL] 150 mg PO DAILY 02/04/16 06/06/17 History Cyanocobalamin [Vitamin B-12] 500 mcg PO DAILY 06/08/16 06/06/17 History Gabapentin [Neurontin] 400 mg PO Q8H #90 cap 01/10/17 06/06/17 Rx Morphine Sulfate ER [Ms Contin] 15 mg PO Q8H #90 tab 01/10/17 06/06/17 Rx oxyCODONE-APAP 5-325MG [Percocet 1 tab PO Q6HR PRN #120 tab 01/10/17 06/06/17 Rx 5-325 mg] Venlafaxine HCl [Effexor XR] 225 mg PO DAILY 03/02/17 06/06/17 History Fludrocortisone [Florinef] 0.1 mg PO BID #60 tab 03/16/17 06/06/17 Rx Butalb/APAP/Caff 50-325-40Mg 1 tab PO Q4HR PRN 06/06/17 06/06/17 History [Fioricet 50-325-40] Allergies Allergy/AdvReac Type Severity Reaction Status Date / Time Sulfa (Sulfonamide Allergy Severe Rash/Hives Verified 06/06/17 16:03 Antibiotics) Tetracyclines Allergy Severe Rash/Hives Verified 06/06/17 16:03 latex Allergy Rash/Hives Verified 06/06/17 16:03 lorazepam [From Ativan] AdvReac Confusion Verified 06/06/17 16:03 TIDE AND EXTRA LAUNDRY SOAP Allergy Rash/Hives Uncoded 06/06/17 15:22 Physical Exam Vitals: Vital Signs Temp Pulse Pulse Pulse Pulse Pulse Resp 06/07/17 08:00 98.5 F 74 16 06/07/17 04:00 70 18 06/07/17 03:45 97.8 F 72 18 06/07/17 00:00 70 18 06/06/17 23:46 98.3 F 77 18 06/06/17 20:00 16 06/06/17 19:25 06/06/17 18:55 98.2 F 71 16 06/06/17 18:53 88 99 81 16 06/06/17 17:53 97.8 F 78 16 06/06/17 16:23 88 99 81 06/06/17 16:19 76 16 06/06/17 15:15 98.9 F 76 16 BP BP BP BP BP Pulse Ox 06/07/17 08:00 119/72 97 06/07/17 04:00 06/07/17 03:45 122/70 100 06/07/17 00:00 06/06/17 23:46 133/78 96 06/06/17 20:00 06/06/17 19:25 130/78 138/78 132/82 06/06/17 18:55 146/79 99 06/06/17 18:53 06/06/17 17:53 136/75 97 06/06/17 16:23 162/55 145/83 168/74 06/06/17 16:19 167/74 99 06/06/17 15:15 174/97 100 Intake and Output 06/06/17 06/07/17 06/07/17 22:59 06:59 14:59 Intake Total 900 850 Balance 900 850 Intake: Intake, IV Titration 300 600 Amount Sodium Chloride 0.9% 1, 300 600 000 ml @ 75 mls/hr IV . [id number] STA Rx#:[id number] Oral 600 250 Other: Voiding Method Toilet Toilet # Voids 1 2 Weight 54.431 kg 54.431 kg Patient Weight 06/08/17 06:59 Weight 54.431 kg Blood pressure 119/72 with a heart rate of 74 GENERAL: This is a 67-year-old female in no apparent distress at the time of my examination. HEENT: Head is atraumatic, normocephalic. Pupils are equal, round. Sclerae anicteric. Conjunctivae are clear. Mucous membranes of the mouth are moist. Neck is supple. There is no jugular venous distention. No carotid bruit is heard. LUNGS: Clear to auscultation no wheezes, rales or rhonchi. No chest wall tenderness is noted on palpation or with deep breathing. HEART: Regular rate and rhythm without murmurs, rubs or gallops. S1 and S2 heard. ABDOMEN: Soft, nontender. Bowel sounds are heard. No organomegaly noted. EXTREMITIES: 2+ peripheral pulses with no evidence of peripheral edema and no calf tenderness noted. NEUROLOGIC: Patient is awake, alert and oriented x3. Results 06/06/17 15:33 06/06/17 15:33 Cardiac Enzymes 06/06/17 06/06/17 06/06/17 Range/Units 15:33 15:33 21:07 AST 22 (14-36) U/L CK-MB (CK-2) <0.2 <0.2 (0.0-2.4) ng/mL Troponin I <0.012 <0.012 (0.000-0.034) ng/mL 06/07/17 Range/Units 02:53 AST (14-36) U/L CK-MB (CK-2) <0.2 (0.0-2.4) ng/mL Troponin I <0.012 (0.000-0.034) ng/mL Coagulation 06/06/17 Range/Units 15:33 PT 10.8 (9.0-12.0) sec APTT 23.6 (22.0-30.0) sec CBC 06/06/17 Range/Units 15:33 WBC 7.9 (3.8-10.6) k/uL RBC 4.27 (3.80-5.40) m/uL Hgb 13.3 (11.4-16.0) gm/dL Hct 40.4 (34.0-46.0) % Plt Count 374 (150-450) k/uL Comprehensive Metabolic Panel 06/06/17 Range/Units 15:33 Sodium 138 (137-145) mmol/L Potassium 4.5 (3.5-5.1) mmol/L Chloride 102 (98-107) mmol/L Carbon Dioxide 26 (22-30) mmol/L BUN 13 (7-17) mg/dL Creatinine 0.62 (0.52-1.04) mg/dL Glucose 71 L (74-99) mg/dL Calcium 10.3 H (8.4-10.2) mg/dL AST 22 (14-36) U/L ALT 27 (9-52) U/L Alkaline Phosphatase 122 (38-126) U/L Total Protein 6.7 (6.3-8.2) g/dL Albumin 3.8 (3.5-5.0) g/dL Current Medications Generic Name Dose Route Start Last Admin Trade Name Freq PRN Reason Stop Dose Admin Hydrocodone Bitart/Acetaminophen 1 each 06/06/17 17:13 06/06/17 17:53 [place] 5-325 PO 1 each Q4HR PRN Administration Moderate Pain Atorvastatin Calcium 20 mg 06/07/17 09:00 06/07/17 08:27 Lipitor PO 20 mg DAILY FCO Administration Bupropion HCl 150 mg 06/07/17 09:00 06/07/17 08:28 Wellbutrin Xl PO 150 mg DAILY FCO Administration Enoxaparin Sodium 40 mg 06/07/17 09:00 06/07/17 08:28 Lovenox SQ 40 mg DAILY FCO Administration Fludrocortisone Acetate 0.1 mg 06/06/17 21:00 06/07/17 08:28 Florinef PO 0.1 mg BID FCO Administration Gabapentin 400 mg 06/06/17 18:00 06/07/17 08:28 Neurontin PO 400 mg Q8H FCO Administration Ibuprofen 400 mg 06/06/17 17:13 Motrin PO Q6HR PRN Mild Pain or Fever > 100.5 Morphine Sulfate 15 mg 06/06/17 22:00 06/07/17 06:47 Ms Contin PO 15 mg Q8H FCO Administration Naloxone HCl 0.2 mg 06/06/17 17:13 Narcan IV Q2M PRN Opioid Reversal Ondansetron HCl 4 mg 06/06/17 17:13 Zofran IVP Q8HR PRN Nausea And Vomiting Oxycodone/Acetaminophen 1 each 06/06/17 20:54 06/07/17 08:29 Percocet 5-325 PO 1 each Q6HR PRN Administration Severe Pain Venlafaxine HCl 225 mg 06/07/17 09:00 06/07/17 08:28 Effexor Xr PO 225 mg DAILY FCO Administration Intake and Output 06/06/17 06/07/17 06/07/17 22:59 06:59 14:59 Intake Total 900 850 Balance 900 850 Intake: Intake, IV Titration 300 600 Amount Sodium Chloride 0.9% 1, 300 600 000 ml @ 75 mls/hr IV . [id number] STA Rx#:[id number] Oral 600 250 Other: Voiding Method Toilet Toilet # Voids 1 2 Weight 54.431 kg 54.431 kg Patient Weight 06/08/17 06:59 Weight 54.431 kg 06/06/17 15:33 06/06/17 15:33 Assessment and Plan Assessment: ASSESSMENT 1. Dizziness secondary to dehydration, resolved with fluid bolus 2. History of syncope with unremarkable loop recorder in place since August 2015 PLAN We will interrogate her loop recorder again over the previous few weeks for any significant arrhythmia. Check TSH. No tilt table test on this admission secondary to diarrhea and dehydration. She can follow up with Dr. Duran as an outpatient for further evaluation once diarrhea has resolved. Pain medication may also play a role in her dizziness and dosing should be evaluated per primary medical team. Nurse Practitioner note has been reviewed, I agree with a documented findings and plan of care. Patient was seen and examined.
[2017-06-07 15:28] VITALS: BP 141/76; PULSE 73; RESP 17; TEMP 97.7
--- NOTE | 2017-06-07 16:00 | P.DS ---
Providers Date of admission: 06/06/17 17:13 Attending physician: Esau Flannery Consults: 06/06/17 20:55 Consult Physician Routine Consulting Provider: Prashant Duran Consult Reason/Comments: tilt table test Do you want consulting provider notified?: Yes Primary care physician: Easton Tripathi [facility] Course: Patient was admitted for a syncope mostly probably related to vasovagal event or narcotic-related patient was counseled regarding excess use of narcotics as an outpatient and patient is trying to cut it cut them down. Patient had a loop recorder in the past patient was evaluated cardiology echocardiac M essentially within normal limits and loop recorder did not show any significant abnormality in the past, decision regarding tilt table testing will be made as an outpatient by cardiology. Patient will be discharged today. Next PHYSICAL EXAMINATION: GENERAL: The patient is alert and oriented x3, not in any acute distress. Well developed, well nourished. HEENT: Pupils are round and equally reacting to light. EOMI. No scleral icterus. No conjunctival pallor. Normocephalic, atraumatic. No pharyngeal erythema. No thyromegaly. CARDIOVASCULAR: S1 and S2 present. No murmurs, rubs, or gallops. PULMONARY: Chest is clear to auscultation, no wheezing or crackles. ABDOMEN: Soft, nontender, nondistended, normoactive bowel sounds. No palpable organomegaly. MUSCULOSKELETAL: No joint swelling or deformity. EXTREMITIES: No cyanosis, clubbing, or pedal edema. NEUROLOGICAL: Gross neurological examination did not reveal any focal deficits. SKIN: No rashes. Patient Condition at Discharge: Stable Plan - Discharge Summary Discharge Rx Participant: No New Discharge Prescriptions: No Action Folic Acid 1 mg PO DAILY Atorvastatin [Lipitor] 20 mg PO DAILY Calcium Carbonate/Vitamin D3 [Calcium 600-Vit D3 400 Tablet] 2 tab PO DAILY Ascorbic Acid [Vitamin C] 500 mg PO DAILY buPROPion XL [Wellbutrin XL] 150 mg PO DAILY Cyanocobalamin [Vitamin B-12] 500 mcg PO DAILY oxyCODONE-APAP 5-325MG [Percocet 5-325 mg] 1 tab PO Q6HR PRN #120 tab PRN Reason: Pain Morphine Sulfate ER [Ms Contin] 15 mg PO Q8H #90 tab Gabapentin [Neurontin] 400 mg PO Q8H #90 cap Venlafaxine HCl [Effexor XR] 225 mg PO DAILY Fludrocortisone [Florinef] 0.1 mg PO BID #60 tab Butalb/APAP/Caff 50-325-40Mg [Fioricet 50-325-40] 1 tab PO Q4HR PRN PRN Reason: Headache Discharge Medication List Folic Acid 1 mg PO DAILY 10/17/13 [History] Atorvastatin [Lipitor] 20 mg PO DAILY 09/21/14 [History] Calcium Carbonate/Vitamin D3 [Calcium 600-Vit D3 400 Tablet] 2 tab PO DAILY [History] Ascorbic Acid [Vitamin C] 500 mg PO DAILY 12/31/15 [History] buPROPion XL [Wellbutrin XL] 150 mg PO DAILY 02/04/16 [History] Cyanocobalamin [Vitamin B-12] 500 mcg PO DAILY 06/08/16 [History] Gabapentin [Neurontin] 400 mg PO Q8H #90 cap 01/10/17 [Rx] Morphine Sulfate ER [Ms Contin] 15 mg PO Q8H #90 tab 01/10/17 [Rx] oxyCODONE-APAP 5-325MG [Percocet 5-325 mg] 1 tab PO Q6HR PRN #120 tab 01/10/17 [ Rx] Venlafaxine HCl [Effexor XR] 225 mg PO DAILY 03/02/17 [History] Fludrocortisone [Florinef] 0.1 mg PO BID #60 tab 03/16/17 [Rx] Butalb/APAP/Caff 50-325-40Mg [Fioricet 50-325-40] 1 tab PO Q4HR PRN 06/06/17 [ History] Follow up Appointment(s)/Referral(s): Prashant Duran MD [STAFF PHYSICIAN] - 1 Week Easton Tripathi DO [Primary Care Provider] - 3 Days Activity/Diet/Wound Care/Special Instructions: please follow up with Dr. Duran once feeling better and diarrhea has stopped. Discharge Disposition: HOME SELF-CARE
--- NOTE | 2017-07-14 08:41 | HP ---
HISTORY AND PHYSICAL DATE OF ADMISSION: 06/06/17 ADDENDUM: SOCIAL HISTORY: The patient started smoking at age of 14 and quit in 1977, about 1 pack a day. In the past, patient did crack and any pain medication she could get her hands-on. Clean for 18 years. Denies any alcohol history. FAMILY HISTORY: Congestive heart failure, COPD. MMODL / IJN: [id number] /
== END 2017-06-07 16:19 | disposition home or self-care (01) ==
LOC: EC 15:11 → 3OBS 17:13
PROVIDERS: ADMIT Hospitalist; ATTEND Hospitalist
DX: R55 Syncope and collapse (principal); J44.9 Chronic obstructive pulmonary disease, unspecified; E78.5 Hyperlipidemia, unspecified; M19.90 Unspecified osteoarthritis, unspecified site; M06.9 Rheumatoid arthritis, unspecified; M79.7 Fibromyalgia; G43.909 Migraine, unspecified, not intractable, without status migrainosus; M50.30 Other cervical disc degeneration, unspecified cervical region; M81.0 Age-related osteoporosis without current pathological fracture; R25.1 Tremor, unspecified; K52.9 Noninfective gastroenteritis and colitis, unspecified; F41.0 Panic disorder [episodic paroxysmal anxiety]; F43.10 Post-traumatic stress disorder, unspecified; G62.9 Polyneuropathy, unspecified; I10 Essential (primary) hypertension; D64.9 Anemia, unspecified; G89.4 Chronic pain syndrome; F32.9 Major depressive disorder, single episode, unspecified; Z79.899 Other long term (current) drug therapy; Z79.891 Long term (current) use of opiate analgesic; Z79.52 Long term (current) use of systemic steroids; Z88.1 Allergy status to other antibiotic agents; Z91.040 Latex allergy status; Z88.2 Allergy status to sulfonamides; Z88.8 Allergy status to other drugs, medicaments and biological substances; Z91.048 Other nonmedicinal substance allergy status; Z91.81 History of falling; Z87.891 Personal history of nicotine dependence; Z85.3 Personal history of malignant neoplasm of breast; Z86.19 Personal history of other infectious and parasitic diseases; Z82.49 Family history of ischemic heart disease and other diseases of the circulatory system
CPT/HCPCS: 96361 ×3; 96374; 99285; 36415; 93005; 80053; 82550 ×2; 82553 ×2; 83735; 84443; 84484 ×2; 85025; 85610; 85730; 81003; 87502; 71020; G0378 ×2; J1650; J1170

== ENCOUNTER 2017-06-19 14:49 | Emergency (ER) | payer MEDICARE ==
--- NOTE | 2017-06-19 15:32 | XR ---
EXAMINATION TYPE: XR shoulder complete LT DATE OF EXAM: 06/19/2017 CLINICAL HISTORY: pain COMPARISON: 05/14/2017 TECHNIQUE: Three views of the left shoulder are obtained. FINDINGS: I do not see evidence for an acute fracture or dislocation. Remote fracture left humeral ne ck with screw defects noted. Suspect distal clavicular resection. Healed left-sided rib fracture. IMPRESSION: 1. There is no acute fracture or dislocation. ICD 10 NO FRACTURE, INITIAL EVALUATION
--- NOTE | 2017-06-19 15:36 | XR ---
EXAMINATION TYPE: XR cervical spine comp DATE OF EXAM: 06/19/2017 CLINICAL HISTORY: pain COMPARISON: NONE TECHNIQUE: Frontal, lateral, oblique, swimmers, and open mouth view of the cervical spine are obtaine d. FINDINGS: Postoperative changes of the cervical fusion and ACDF at C3-C5. C5-6 anterior subluxation a gain noted a 2.8 mm. I do not see evidence for acute fracture or dislocation. IMPRESSION: No acute fracture or dislocation is seen in the cervical spine.ICD 10 NO FRACTURE, INITI AL EVALUATION
--- NOTE | 2017-06-19 15:40 | ED ---
General Adult HPI - General Chief complaint: Extremity Injury, Upper Stated complaint: Fall/shoulder pain Time Seen by Provider: 06/19/17 15:01 Source: EMS, RN notes reviewed Mode of arrival: EMS Limitations: no limitations - History of Present Illness Initial comments: This is a 67-year-old female who presents to the emergency department with chief complaint of fall. Patient recently had shoulder surgery on April 27 after sustaining a humerus fracture in 2014. Today while in the kitchen she stumbled falling forward and hitting her left shoulder on the sink. She was transported to the ER via EMS and was given 25mcg of fentanyl. Patient states that it "took the edge off." Patient states that she has a follow-up appointment with Dr. Zee in the next few days and she will begin physical therapy. Patient complains of generalized shoulder pain as well as neck pain. Denies any other injury or trauma. Denies any head injury or loss of consciousness. Denies fever, chills, chest pain, shortness of breath, abdominal pain, nausea or vomiting, constipation or diarrhea, dysuria or hematuria, numbness or tingling, headache or vision changes. - Related Data Home Medications Medication Instructions Recorded Confirmed Folic Acid 1 mg PO DAILY 10/17/13 06/19/17 Atorvastatin [Lipitor] 20 mg PO DAILY 09/21/14 06/19/17 Calcium Carbonate/Vitamin D3 2 tab PO DAILY 05/16/15 06/19/17 [Calcium 600-Vit D3 400 Tablet] Ascorbic Acid [Vitamin C] 500 mg PO DAILY 12/31/15 06/19/17 buPROPion XL [Wellbutrin XL] 150 mg PO DAILY 02/04/16 06/19/17 Cyanocobalamin [Vitamin B-12] 500 mcg PO DAILY 06/08/16 06/19/17 Venlafaxine HCl [Effexor XR] 225 mg PO DAILY 03/02/17 06/19/17 Butalb/APAP/Caff 50-325-40Mg 1 tab PO Q4HR PRN 06/06/17 06/19/17 [Fioricet 50-325-40] Previous Rx's Medication Instructions Recorded Gabapentin [Neurontin] 400 mg PO Q8H #90 cap 01/10/17 Morphine Sulfate ER [Ms Contin] 15 mg PO Q8H #90 tab 01/10/17 oxyCODONE-APAP 5-325MG [Percocet 1 tab PO Q6HR PRN #120 tab 01/10/17 5-325 mg] Fludrocortisone [Florinef] 0.1 mg PO BID #60 tab 03/16/17 Allergies Allergy/AdvReac Type Severity Reaction Status Date / Time Sulfa (Sulfonamide Allergy Severe Rash/Hives Verified 06/19/17 14:58 Antibiotics) Tetracyclines Allergy Severe Rash/Hives Verified 06/19/17 14:58 latex Allergy Rash/Hives Verified 06/19/17 14:58 lorazepam [From Ativan] AdvReac Confusion Verified 06/19/17 14:58 TIDE AND EXTRA LAUNDRY SOAP Allergy Rash/Hives Uncoded 06/19/17 14:58 Review of Systems ROS Statement: Those systems with pertinent positive or pertinent negative responses have been documented in the HPI. ROS Other: All systems not noted in ROS Statement are negative. Past Medical History Past Medical History: Cancer, COPD, Fibromyalgia, GI Bleed, Hyperlipidemia, Musculoskeletal Disorder, Osteoarthritis (OA), Rheumatoid Arthritis (RA), Syncope Additional Past Medical History / Comment(s): past HX MIGRAINES.falls, CHRONIC BACK PAIN, DDD. CERVICAL AND BREAST CA." hx hep a and b". Anemia hx blood transfusions and iron infusions, HX GI BLEED. HAD BRYCE PROC. HX COLON POLYPS-benign, stress test 2016-wnl. osteoporosis,"tremors- have eased up a bit", t11 fx. History of Any Multi-Drug Resistant Organisms: None Reported Past Surgical History: Section, Hysterectomy, Orthopedic Surgery, Tonsillectomy Additional Past Surgical History / Comment(s): CERVICAL FUSION; LUMBAR FUSION; ORIF of Humerus, WITH ABDIFATAH/SCREWS. BREAST REDUCTION 2009.-had non healing wound afterwards then had wound closure and skin graft LT mastectomy 2015, 1999 and 2ND IN 2003 WAS CA. RT TYMPANOPLASTY. D&C. EXC Cataract RITU. BRYCE FUNDLAPLASTY for hernia . 04/27/2017 removal of hardward from left shoulder with dr zee. loop recorder 2013. Left breast mastectomy 2016 Past Anesthesia/Blood Transfusion Reactions: No Reported Reaction, Family History of Problems w/ Anesthesia Additional Past Anesthesia/Blood Transfusion Reaction / Comment(s): SISTER TAKES LONGER TO AWAKEN, YEARS AGO. Past Psychological History: Anxiety, Depression, Panic Disorder, PTSD Smoking Status: Former smoker Past Alcohol Use History: None Reported Past Drug Use History: None Reported - Past Family History Father Family Medical History: Congestive Heart Failure (CHF), COPD Additional Family Medical History / Comment(s): at age 72 Mother Family Medical History: Myocardial Infarction ([place]) Additional Family Medical History / Comment(s): 1987 age 57 mi General Exam - General Exam Comments Initial Comments: General: Awake and alert, well-developed; in no apparent distress. HEENT: Head atraumatic, normocephalic. Pupils are equal, round and reactive to light. Extraocular movements intact. Neck: Supple. Normal ROM. Mild tenderness on palpation of surrounding cervical musculature. Cardiovascular: Regular rate and rhythm. No murmurs, rubs or gallops. Chest symmetrical. Respiratory: Lungs clear to auscultation bilaterally. No wheezes, rales or rhonchi. Normal respiratory effort with no use of accessory muscles. Musculoskeletal: Limited range of motion of left shoulder due to pain. Sensation is intact. Radial pulses are 2+ equal and palpable bilaterally. No bruising, erythema or swelling noted. Generalized tenderness on palpation of left shoulder. Skin: [place], warm and dry without rashes or lesions. Neurological: Alert and oriented x3. CN II-XII grossly intact. Speech is fluent and answers are appropriate. No focal neuro deficits. Psychiatric: Normal mood and affect. No overt signs of depression or anxiety noted. Limitations: no limitations Course Vital Signs 06/19/17 14:56 Temperature 97.4 F L Pulse Rate 90 Respiratory 18 Rate Blood Pressure 178/87 O2 Sat by Pulse 98 Oximetry Medical Decision Making - Medical Decision Making This is a 67-year-old female presents to the emergency department with chief complaint of fall. Patient recently had a fracture of her proximal humerus and underwent surgery. She stated she fell forward hitting her left shoulder against her sink in the kitchen. Patient was brought to the emergency department via EMS for pain control. Patient does see pain management, her next appointment is next Sunday. Patient states that she sees Dr. Zee. She has an appointment scheduled for June 28. X-ray of left shoulder reveal no acute fractures or dislocations. When compared to previous x-ray there are no changes. Patient will be discharged home. She is in no acute distress and is neurovascularly intact. Recommended follow-up with Dr. Zee within 1-2 days. Patient is in agreement and voices understanding. All questions were answered. - Radiology Data Radiology results: report reviewed Left shoulder x-ray findings: I do not see evidence for an acute fracture or dislocation. Normal fracture left humeral neck with screw defects noted. Suspect distal clavicular resection. Healed left-sided rib fracture. Impression: There is no acute fracture or dislocation. Cervical spine x-ray findings: Postoperative changes of the cervical fusion and ACDF at C3 through C5. C5 through C6 anterior subluxation again noted at 2.8 mm. I do not see evidence for acute fracture or dislocation. Impression: No acute fracture or dislocation is seen in the cervical spine. Disposition Clinical Impression: Contusion, shoulder /upper arm Disposition: HOME SELF-CARE Condition: Good Instructions: Shoulder Pain (ED) Additional Instructions: Please follow-up Dr. Zee within 1-2 days. Please follow up with pain management as scheduled. Please follow up with primary care provider within 1- 2 days. Return to emergency department if symptoms should worsen or any concerns arise. Referrals: Easton Tripathi DO [Primary Care Provider] - 1-2 days Time of Disposition: 16:10
[2017-06-20 23:07] VITALS: BP 178/87; PULSE 90; RESP 18; TEMP 97.4
== END 2017-06-19 16:28 | disposition home or self-care (01) ==
LOC: EC 14:49
DX: S40.012A Contusion of left shoulder, initial encounter (principal); E78.5 Hyperlipidemia, unspecified; D64.9 Anemia, unspecified; F32.9 Major depressive disorder, single episode, unspecified; F41.0 Panic disorder [episodic paroxysmal anxiety]; F43.10 Post-traumatic stress disorder, unspecified; Z85.3 Personal history of malignant neoplasm of breast; Z85.41 Personal history of malignant neoplasm of cervix uteri; Z87.891 Personal history of nicotine dependence; Z79.899 Other long term (current) drug therapy; Z88.2 Allergy status to sulfonamides; Z88.1 Allergy status to other antibiotic agents; Z88.8 Allergy status to other drugs, medicaments and biological substances; Z91.040 Latex allergy status; Z91.048 Other nonmedicinal substance allergy status; W01.0XXA Fall on same level from slipping, tripping and stumbling without subsequent striking against object, initial encounter; Y92.000 Kitchen of unspecified non-institutional (private) residence as the place of occurrence of the external cause
CPT/HCPCS: 72050; 99284

== ENCOUNTER 2017-06-25 06:38 | Day surgery (SDC) | payer MEDICARE ==
[2017-06-20 23:04] VITALS: BMI 20.5
[~2017-06-25 06:38] MED LIST changes: -ACETAMINOPHEN TAB 500 MG TAB PO ONE; +LACTATED RINGERS 1,000 ML IV SCH; -MELOXICAM 7.5 MG TAB PO ONE; -ONDANSETRON 4 MG/2 ML VIAL IVP ONE; -ceFAZolin IN SWFI 2 GM/20 ML SYRINGE IVP ONE
[2017-06-25 07:45] VITALS: RESP 16; TEMP 97.8
[2017-06-25] MEDS ORDERED: LIDOCAINE 1% 20 ML VIAL (10MG/ML) FOR IV START INTRADERMA ONE (07:45)
[2017-06-25] MEDS ORDERED: IV FLUID CONTINUATION 600 ML IV ONE (08:39)
--- NOTE | 2017-06-25 08:49 | FL ---
EXAMINATION TYPE: FL guided pain mgmt statistic DATE OF EXAM: 06/25/2017 HISTORY: Flouroscopy time 24 seconds of fluoroscopy provided. IMPRESSION: 1. Fluoroscopy time.
[2017-06-25 09:00] VITALS: BP 144/88; PULSE 69
--- NOTE | 2017-06-25 10:49 | P.PCN ---
Date of Procedure: 06/25/17 Surgeon: David Doran Pathology: none sent Condition: stable Disposition: PACU Description of Procedure: PREOPERATIVE DIAGNOSIS: 1-Thoracic radiculitis. POSTOPERATIVE DIAGNOSIS: 1-same PROCEDURE 1. Thoracic epidural steroid injection under fluoroscopic guidance at the T9- T10 level. 2. Thoracic epidurogram. ANESTHESIA: Local with 1% lidocaine; IV sedation with Versed/fentanyl. EBL: Minimal PROCEDURE INDICATION: The patient with low back pain and radiculitis symptoms unresponsive to conservative treatment. Fluoroscopy was used to optimize visualization of the needle placement and to maximize safety. No use of blood thinners. thoracic SHERLYN #3 today after good relief from previous procedures. PROCEDURE DESCRIPTION / TECHNIQUE: The patient was seen and identified in the preoperative area. Risks, benefits, complications, and alternatives were discussed with the patient, including but not limited to bleeding, infection, nerve damage, allergic reactions to medications, and incomplete pain relief. The patient agreed to proceed with the procedure and signed the consent after all questions were answered. IV was started, and vital signs were stable. Patient was taken to the OR and time out was completed to confirm patient position, procedure, laterality of pain, and allergies. The patient was placed in the prone position on procedure table and a pillow was placed under the abdomen to reduce lumbar lordosis. The lumbosacral area was prepped and draped in the usual sterile fashion. Critical pause was taken. Vital signs were closely monitored during the procedure. Conscious sedation was used during the procedure to decrease patients anxiety. Using anterior-posterior fluoroscopy, the T9-T10 interlaminar space was identified and the skin over this site was marked and then infiltrated with 1% lidocaine subcutaneously. Subsequently, a 20-gauge 3.5-inch Tuohy epidural needle was inserted and advanced toward the epidural space using the Loss of resistance technique and guided by AP and lateral fluoroscopy. The correct needle position in the epidural space was verified with the injection of 2 mL of the water soluble contrast dye Omnipaque 300 contrast and observing an excellent epidurogram with the epidural spread of the dye, after negative aspiration for blood and CSF and in the absence of paresthesias. Again after negative aspiration, a 6 ml mixture containing 20 mg of PF Decadron and 2 ml of preservative free Normal Saline, and 2 ml of preservative free lidocaine 1% solution was injected and a washout of epidurogram was seen. Needle was withdrawn intact, skin was cleansed, and bandages were applied. COMPLICATIONS: None COMMENTS: DISPOSITION / PLANS: The patient was placed in a supine position and transferred to the recovery area in a stable condition for observation. There was no evidence of lower extremity motor or sensory deficit after the procedure. Patient was discharged from the recovery room after meeting discharge criteria. Home discharge instructions were given to the patient by the staff. The patient was reexamined prior to discharge and there were no issues. The patient will schedule a follow up in the clinic in 2-4 weeks.
== END 2017-06-25 09:16 | disposition home or self-care (01) ==
LOC: ORPAIN 06:38
PROVIDERS: ATTEND Anesthesiology
DX: M47.24 Other spondylosis with radiculopathy, thoracic region (principal); K21.9 Gastro-esophageal reflux disease without esophagitis; I10 Essential (primary) hypertension; J44.9 Chronic obstructive pulmonary disease, unspecified; Z88.2 Allergy status to sulfonamides; Z91.040 Latex allergy status; Z88.1 Allergy status to other antibiotic agents; Z88.8 Allergy status to other drugs, medicaments and biological substances; Z98.1 Arthrodesis status
CPT/HCPCS: 62321; J2250; J1100; Q9965; J2001; J3010; 99152

== ENCOUNTER → 2017-07-23 | Outpatient (CLI) | payer MEDICARE ==
[2017-07-23 11:52] VITALS: BP 123/83; PULSE 101; RESP 16
--- NOTE | 2017-07-23 21:41 | P.PN ---
Subjective Progress Note Date: 07/23/17 This is follow-up visit for this patient with a history of severe and chronic mid and low back pain secondary to thoracic herniated disc diseases , thoracic and lumbar spondylosis with facet arthropathy, we have done a thoracic epidural steroid injection, and this helped her mid back pain significantly, patient currently complaining of severe neck pain and she's been diagnosed in the past for cervical degenerative disc disease and we helped him cervical epidural steroid injections Patients currently on MS Contin 15 mg every 8 hours and Percocet 5/325 every 6 hours, and the Neurontin 400 mg 3 times a da Patient denies any motor or sensory deficit , patient denies any fever or night sweats, denies any change in the bowel movements or urination, she reports that her mid back pain improved significantly after the thoracic epidural steroid injection and currently complaining of increased the neck pain Physical Examinations : 1-Constitutiona : Cooperative , not in acute distress . 2-HEENT : nech ; supple , no Lymphadenopathy , no Thyromegaly , normal thyroid size . eyes : no ptosis , no icterus, no photophobia . ENT : normal of hearing , normal oropharynx , no Thrush . 3- Respiratory : Chest clear to auscultations Bilaterally , no wheezing , no Rhonchi . 4- Cardiovascular : regular rate and rhythem , S1 , S2 , no S3 , no S4. 5- Gastrointestinal : abdomen soft no tenderness , bowel sounds positive all four quadrents , no organomegally . 6- Genitourinary : Defferred . 7- neurologic : Cranial nerve II to XII intact , no focal neurological deffecit . 8-psychatric : alert , oriented X 3 , appropriate affect , intact judgment and insight . 9-Lymphatic : no Lymphadenopathy . 10- musculoskeltal : exams of the cervical spine = motor strength normal bilateral upper extremities facet loading test cervical area positive. exams of the Lumber spine = motor strength lower extremities ,thigh and legs .5/5 deep tendon reflexes : normal Knee Jerk , normal ankle Jerk . lumber facet Loading Test positive t side Assessment and plan = Chronic low back pain secondary to thoracic herniated disease , thoracic and lumbar spondylosis with facet arthropathy without myelopathy , Neck pain secondary to cervical degenerative disc disease chronic and current use of high-risk medication (Opioids). The patient was counseled about risk of opioid use, psychological risk associated with opioids and was orally counseled to not overuse , Patient showed interest of decreasing her opioid intake because she is concerned about the side effect, and I discussed with the patient and the risk of addiction of opiate she want , to decrease the opioid intake, I will discontinue MS Contin, continue Percocet but I will increase the dose to Percocet 7.5/325 every 6 hours, also patient reported that she had side effects from Neurontin she is feeling sleepy and dizzy when she take the 400 mg I will decrease the Neurontin to 300 mg 3 times a day, and patient could benefit from cervical epidural steroid injections Objective - Vital Signs Vital signs: Vital Signs Temp Pulse 101 H 07/23/17 11:40 Resp 16 07/23/17 11:40 BP 123/83 07/23/17 11:40 Pulse Ox Intake & Output 07/23/17 07/23/17 07/24/17 06:59 18:59 06:59 Weight 54.431 kg
== END | disposition home or self-care (01) ==
LOC: PNWHC3 11:04
PROVIDERS: ATTEND Specialist
DX: G89.29 Other chronic pain (principal); M51.24 Other intervertebral disc displacement, thoracic region; M50.30 Other cervical disc degeneration, unspecified cervical region; M47.815 Spondylosis without myelopathy or radiculopathy, thoracolumbar region; M46.85 Other specified inflammatory spondylopathies, thoracolumbar region; Z79.52 Long term (current) use of systemic steroids; Z79.891 Long term (current) use of opiate analgesic; Z79.899 Other long term (current) drug therapy; Z71.89 Other specified counseling
CPT/HCPCS: 99211

== ENCOUNTER → 2017-09-17 | Outpatient (CLI) | payer MEDICARE ==
[2017-09-17 13:11] VITALS: BP 142/89; PULSE 85; RESP 18
--- NOTE | 2017-09-17 13:44 | P.PN ---
Subjective Progress Note Date: 09/17/17 This is a follow-up visit for this 67 years old female with a chronic history of severe back and neck pain and low back pain, she is diagnosed with thoracic herniated disc disease. THORACIC EPIDURAL STEROID INJECTIONS, and this helped her midback pain, and she is currently complaining of increased neck pain with radiation to the upper extremity bilaterally she is diagnosed with cervical degenerative disc disease and she is scheduled to have cervical epidural steroid injection in the next few weeks, she is currently on Percocet 7.5/325 every 6-8 hours and Neurontin 300 mg 3 times a day, she denies any side effects of the medication she denies any excessive drowsiness or sleepiness , she reported that she is having frequent muscle spasm in the cervical and low back area, he denies any motor or sensory deficits she denies any change in the bowel movement or urination Objective - Vital Signs Vital signs: Vital Signs Temp Pulse 85 09/17/17 13:06 Resp 18 09/17/17 13:06 BP 142/89 09/17/17 13:06 Pulse Ox 99 09/17/17 13:06 Intake & Output 09/16/17 09/17/17 09/17/17 18:59 06:59 18:59 Weight 56.699 kg - Exam Physical Examinations : 1-Constitutiona : Cooperative , not in acute distress . 2-HEENT : nech ; supple , no Lymphadenopathy , normal thyroid size . eyes : no ptosis , no icterus, no photophobia . ENT : normal of hearing , normal oropharynx , no Thrush . 3- Respiratory : Chest clear to auscultations Bilaterally , no wheezing , no Rhonchi . 4- Cardiovascular : regular rate and rhythem , S1 , S2 , no S3 , no S4. 5- Gastrointestinal : abdomen soft no tenderness , bowel sounds positive all four quadrents , no organomegally . 6- Genitourinary : Defferred . 7- neurologic : Cranial nerve II to XII intact , no focal neurological deffecit . 8-psychatric : alert , oriented X 3 , appropriate affect , intact judgment and insight . 9-Lymphatic : no Lymphadenopathy . 10- musculoskeltal : cervical spine = motor stregnth in the deltoid and biceps, motor stregnth biceps and the wrist extensors (C6) . motor stregnth in the triceps muscle . deep tendon reflexes normal at the biceps , normal at Brachioradialis , normal at the Triceps positive cervical facet loading test . , Lumber spine = normal moter stegnth lower extremities ,thigh and legs .5/5 Multiple trigger point identified in the thoracic paravertebral muscles and lumbar paravertebral muscles Assessment and Plan Plan: Assessment and plan= Chronic neck pain secondary to cervical degenerative disc disease, she is scheduled to have cervical epidural steroid injection in the next few weeks. Chronic mid back pain secondary to thoracic spondylosis and thoracic herniated disc disease status post thoracic epidural steroid injection, with significant improvement in her midback pain. Myofascial pain syndrome; thoracic and lumbar area, chronic and current use of high-risk medication (opioids) Patient denies any side effects of the current pain medication and the current treatment/medication ML and the patient to do activity of daily living , Diagnoses, prognosis, treatment options, including but not limited to physical therapy, medication management, interventional therapies, and surgery, were discussed with the patient All the questions answered Patient signed the narcotic agreement, and he was orally counseled, not to overuse, not to abuse, not to Divert , not tp sell pain medication, and to take it as prescribed only, Patient was counseled not to drive or operate heavy equipment while using narcotic medication, and advised not to use alcohol or any Illicit drugs while using the narcotis, the patient's verbalized understanding that lack of compliance with any of the above instructions and will likely to cause discharge from the pain service, not to renew his narcotic prescriptions Medication managements= I would decrease the Percocet to 5/325 every 6 hours dispense 90 , with one refill, continue Neurontin 300 mg 3 times a day dispense 90 with 1 refill She could benefit from muscle relaxant Zanaflex 2 mg twice a day dispense 60 with , Time with Patient: Less than 30
== END | disposition home or self-care (01) ==
LOC: PNWHC3 12:11
PROVIDERS: ATTEND Specialist
DX: Z53.9 Procedure and treatment not carried out, unspecified reason (principal)

== ENCOUNTER 2017-10-06 11:04 | Observation (INO) | payer MEDICARE ==
[2017-10-06] MEDS ORDERED: ASPIRIN 81 MG PO STA (11:21)
[2017-10-06] MEDS ORDERED: NITROGLYCERIN OINT 1 INCH/GM PACKET TOPICAL STA (11:21)
--- NOTE | 2017-10-06 11:33 | ED ---
General Adult HPI - General Chief complaint: Chest Pain Stated complaint: Chest pain Time Seen by Provider: 10/06/17 11:05 Source: patient, RN notes reviewed Mode of arrival: wheelchair Limitations: no limitations - History of Present Illness Initial comments: 67-year-old female who is chronic left shoulder pain. Patient also has a history of high cholesterol and a strong family history of heart disease. Patient states last evening she started having a pressure sensation in the chest associated with nausea and shortness of breath. Patient states the symptoms if worsens and at this point she decided come and be evaluated. Patient states she's young person family congestive heart disease. Patient denies any diabetes or hypertension denies smoking. Patient denies any radiation of the pain. Patient denies any headache patient denies numbness weakness. Patient denies lightheadedness dizziness or near syncopal episode. Patient denies any abdominal pain. Patient is nauseated but has not vomited has had no diarrhea. Patient has had no recent fever chills or cough. - Related Data Home Medications Medication Instructions Recorded Confirmed Folic Acid 1 mg PO DAILY 10/17/13 10/06/17 Calcium Carbonate/Vitamin D3 2 tab PO DAILY 05/16/15 10/06/17 [Calcium 600-Vit D3 400 Tablet] Ascorbic Acid [Vitamin C] 500 mg PO DAILY 12/31/15 10/06/17 buPROPion XL [Wellbutrin XL] 150 mg PO DAILY 02/04/16 10/06/17 Cyanocobalamin [Vitamin B-12] 500 mcg PO DAILY 06/08/16 10/06/17 Venlafaxine HCl [Effexor XR] 225 mg PO DAILY 03/02/17 10/06/17 Butalb/APAP/Caff 50-325-40Mg 1 tab PO Q4HR PRN 06/06/17 10/06/17 [Fioricet 50-325-40] Previous Rx's Medication Instructions Recorded Gabapentin [Neurontin] 300 mg PO TID #90 cap 09/17/17 oxyCODONE HCL/ACETAMINOPHEN 1 tab PO Q6HR PRN #90 tab 09/17/17 [Percocet 5-325 mg] tiZANidine HCL [Zanaflex] 2 mg PO Q12H PRN #60 capsule 09/17/17 Allergies Allergy/AdvReac Type Severity Reaction Status Date / Time Sulfa (Sulfonamide Allergy Severe Rash/Hives Verified 10/06/17 12:28 Antibiotics) Tetracyclines Allergy Severe Rash/Hives Verified 10/06/17 12:28 latex Allergy Rash/Hives Verified 10/06/17 12:28 lorazepam [From Ativan] AdvReac Confusion Verified 10/06/17 12:28 TIDE AND EXTRA LAUNDRY SOAP Allergy Rash/Hives Uncoded 10/06/17 11:10 Review of Systems ROS Statement: Those systems with pertinent positive or pertinent negative responses have been documented in the HPI. ROS Other: All systems not noted in ROS Statement are negative. Past Medical History Past Medical History: Cancer, COPD, Fibromyalgia, GI Bleed, Hyperlipidemia, Musculoskeletal Disorder, Osteoarthritis (OA), Rheumatoid Arthritis (RA), Syncope Additional Past Medical History / Comment(s): Hx Migraines,falls, Chronic back pain, DDD. Cervical and breast cancer." hx hep A and B". hx Anemia with blood transfusions and iron infusions,hx [id number], osteoporosis,tremors, t11 fx. History of Any Multi-Drug Resistant Organisms: None Reported Past Surgical History: Section, Hysterectomy, Orthopedic Surgery, Tonsillectomy Additional Past Surgical History / Comment(s): Cervical and Lumbar fusion; ORIF of Humerus with carlos and screws. lt breast lumpectomy 2001, 2ND lumpectomy [place] 2003 was [place]. Breast Reduction 2009.-had non healing wound afterwards then had wound closure and skin graft,Left breast mastectomy 2016, RT tympanoplasty. D&C. EXC Cataract RITU. Jarek Fundoplasty for hernia, removal of hardware from left shoulder, loop recorder 2013 Past Anesthesia/Blood Transfusion Reactions: No Reported Reaction, Family History of Problems w/ Anesthesia Additional Past Anesthesia/Blood Transfusion Reaction / Comment(s): SISTER TAKES LONGER TO AWAKEN, YEARS AGO. Past Psychological History: Anxiety, Depression, Panic Disorder, PTSD Smoking Status: Former smoker Past Alcohol Use History: None Reported Past Drug Use History: None Reported - Past Family History Father Family Medical History: Congestive Heart Failure (CHF), COPD Additional Family Medical History / Comment(s): at age 72 Mother Family Medical History: Myocardial Infarction ([place]) Additional Family Medical History / Comment(s): 1987 age 57 mi General Exam - General Exam Comments Initial Comments: GENERAL: Patient is well-developed and well-nourished. Patient is nontoxic and well- hydrated and is in mild distress. ENT: Neck is soft and supple. No significant lymphadenopathy is noted. Oropharynx is clear. Moist mucous membranes. Neck has full range of motion without eliciting any pain. There is no thyroid enlargement and no masses were felt. EYES: The sclera were anicteric and conjunctiva were pink and moist. Extraocular movements were intact and pupils were equal round and reactive to light. Eyelids were unremarkable. PULMONARY: Unlabored respirations. Good breath sounds bilaterally. No audible rales rhonchi or wheezing was noted. CARDIOVASCULAR: There is a regular rate and rhythm without any murmurs gallops or rubs. ABDOMEN: Soft and nontender with normal bowel sounds. No palpable organomegaly was noted. There is no palpable pulsatile mass. SKIN: Skin is clear with no lesions or rashes and otherwise unremarkable. NEUROLOGIC: Patient is alert and oriented x3. Cranial nerves II through XII are grossly intact. Motor and sensory are also intact. Normal speech, volume and content. Symmetrical smile. Cerebellar exam grossly intact. MUSCULOSKELETAL: Normal extremities with adequate strength and full range of motion. No lower extremity swelling or edema. No calf tenderness. LYMPHATICS: No significant lymphadenopathy is noted PSYCHIATRIC: Normal psychiatric evaluation. Normal interpersonal interactions appears functionally intact in deals appropriately with others. No signs of depression. No signs of anxiety. Limitations: no limitations Course Vital Signs 10/06/17 10/06/17 10/06/17 11:07 11:24 12:05 Temperature 98.5 F Pulse Rate 76 71 Pulse Rate [ 79 Handle Sewer ] Respiratory 18 16 Rate Blood Pressure 215/115 187/83 O2 Sat by Pulse 98 96 Oximetry Medical Decision Making - Medical Decision Making EKG shows a sinus rhythm with occasional PACs at a rate of 84 bpm UT interval is on a 50 QRS 74 QT interval 380 QTC is 449. Patient's EKG shows no ST segment elevation or depression. No T-wave abnormalities. Chest x-ray shows no acute abnormality. I spoke with the patient she thought the Nitropaste decreased her pain. I started patient on heparin. I spoke with Dr. Khan admitted the patient I wrote admitting orders I continued heparin Nitropaste and aspirin on the floor. - Lab Data Result diagrams: 10/06/17 11:19 10/06/17 11:19 Lab Results 0410/06/17 10/06/17 Range/Units 11:19 11:19 11:19 WBC 6.5 (3.8-10.6) k/uL RBC 4.43 (3.80-5.40) m/uL Hgb 13.8 (11.4-16.0) gm/dL Hct 41.1 (34.0-46.0) % MCV 92.7 (80.0-100.0) fL MCH 31.2 (25.0-35.0) pg MCHC 33.7 (31.0-37.0) g/dL RDW 13.3 (11.5-15.5) % Plt Count 310 (150-450) k/uL Neutrophils % 62 % Lymphocytes % 25 % Monocytes % 5 % Eosinophils % 4 % Basophils % 1 % Neutrophils # 4.0 (1.3-7.7) k/uL Lymphocytes # 1.7 (1.0-4.8) k/uL Monocytes # 0.3 (0-1.0) k/uL Eosinophils # 0.2 (0-0.7) k/uL Basophils # 0.1 (0-0.2) k/uL PT (9.0-12.0) sec INR (<1.2) APTT (22.0-30.0) sec Sodium 148 H (137-145) mmol/L Potassium 4.1 (3.5-5.1) mmol/L Chloride 107 (98-107) mmol/L Carbon Dioxide 25 (22-30) mmol/L Anion Gap 16 mmol/L BUN 13 (7-17) mg/dL Creatinine 0.60 (0.52-1.04) mg/dL Est GFR (CKD-EPI)AfAm >90 (>60 ml/min/1.73 sqM) Est GFR (CKD-EPI)NonAf >90 (>60 ml/min/1.73 sqM) Glucose 74 (74-99) mg/dL Calcium 10.3 H (8.4-10.2) mg/dL Magnesium 2.0 (1.6-2.3) mg/dL Total Bilirubin 0.3 (0.2-1.3) mg/dL AST 28 (14-36) U/L ALT 29 (9-52) U/L Alkaline Phosphatase 158 H (38-126) U/L Total Creatine Kinase 29 L (30-135) U/L CK-MB (CK-2) 0.4 (0.0-2.4) ng/mL CK-MB (CK-2) Rel Index 1.4 Troponin I <0.012 (0.000-0.034) ng/mL Total Protein 7.4 (6.3-8.2) g/dL Albumin 4.5 (3.5-5.0) g/dL 10/06/17 Range/Units 11:19 WBC (3.8-10.6) k/uL RBC (3.80-5.40) m/uL Hgb (11.4-16.0) gm/dL Hct (34.0-46.0) % MCV (80.0-100.0) fL MCH (25.0-35.0) pg MCHC (31.0-37.0) g/dL RDW (11.5-15.5) % Plt Count (150-450) k/uL Neutrophils % % Lymphocytes % % Monocytes % % Eosinophils % % Basophils % % Neutrophils # (1.3-7.7) k/uL Lymphocytes # (1.0-4.8) k/uL Monocytes # (0-1.0) k/uL Eosinophils # (0-0.7) k/uL Basophils # (0-0.2) k/uL PT 9.6 (9.0-12.0) sec INR 1.0 (<1.2) APTT 22.9 (22.0-30.0) sec Sodium (137-145) mmol/L Potassium (3.5-5.1) mmol/L Chloride (98-107) mmol/L Carbon Dioxide (22-30) mmol/L Anion Gap mmol/L BUN (7-17) mg/dL Creatinine (0.52-1.04) mg/dL Est GFR (CKD-EPI)AfAm (>60 ml/min/1.73 sqM) Est GFR (CKD-EPI)NonAf (>60 ml/min/1.73 sqM) Glucose (74-99) mg/dL Calcium (8.4-10.2) mg/dL Magnesium (1.6-2.3) mg/dL Total Bilirubin (0.2-1.3) mg/dL AST (14-36) U/L ALT (9-52) U/L Alkaline Phosphatase (38-126) U/L Total Creatine Kinase (30-135) U/L CK-MB (CK-2) (0.0-2.4) ng/mL CK-MB (CK-2) Rel Index Troponin I (0.000-0.034) ng/mL Total Protein (6.3-8.2) g/dL Albumin (3.5-5.0) g/dL Critical Care Time Critical Care Time: Yes Total Critical Care Time: 35 Disposition Clinical Impression: Unstable angina pectoris Disposition: ADMITTED IP TO THIS HOSP Is patient prescribed a controlled substance at d/c from ED?: No Referrals: Easton Tripathi DO [Primary Care Provider] - 1-2 days Time of Disposition: 12:59
[2017-10-06 11:53] LABS: Basophils # (A) 0.1 k/uL (0-0.2); Basophils % (A) 1 %; Eosinophils # (A) 0.2 k/uL (0-0.7); Eosinophils % (A) 4 %; HCT 41.1 % (34.0-46.0); HGB 13.8 gm/dL (11.4-16.0); Lymphocytes # (A) 1.7 k/uL (1.0-4.8); Lymphocytes % (A) 25 %; MCH 31.2 pg (25.0-35.0); MCHC 33.7 g/dL (31.0-37.0); MCV 92.7 fL (80.0-100.0); Monocytes # (A) 0.3 k/uL (0-1.0); Monocytes % (A) 5 %; Neutrophils % (A) 62 %; Platelet Count 310 k/uL (150-450); RBC 4.43 m/uL (3.80-5.40); RDW 13.3 % (11.5-15.5); WBC 6.5 k/uL (3.8-10.6)
--- NOTE | 2017-10-06 11:54 | XR ---
EXAMINATION TYPE: XR chest 2V DATE OF EXAM: 10/06/2017 HISTORY: Chest Pain. REFERENCE: Previous study dated 06/06/2017. FINDINGS: There has been a previous ACDF of the lower cervical spine. There is a loop recorder projec ting over the lower left chest. The lungs are clear. Pleural space are clear. Heart size is within normal limits. IMPRESSION: NO ACUTE INTRATHORACIC ABNORMALITY.
[2017-10-06 12:05] LABS: ALT 29 U/L (9-52); AST 28 U/L (14-36); Albumin 4.5 g/dL (3.5-5.0); Alkaline Phosphatase 158 U/L (38-126); Anion Gap 16 mmol/L; Blood Urea Nitrogen 13 mg/dL (7-17); Calcium 10.3 mg/dL (8.4-10.2); Carbon Dioxide 25 mmol/L (22-30); Chloride 107 mmol/L (98-107); Glucose 74 mg/dL (74-99); Potassium 4.1 mmol/L (3.5-5.1); Sodium 148 mmol/L (137-145); Total Bilirubin 0.3 mg/dL (0.2-1.3); Total Protein 7.4 g/dL (6.3-8.2)
[2017-10-06 12:11] LABS: Partial Thromboplastin Time 22.9 sec (22.0-30.0); Prothrombin Time 9.6 sec (9.0-12.0)
[2017-10-06] MEDS ORDERED: MORPHINE SULFATE 4MG/4ML SYRG IVP STA (12:15)
[2017-10-06 12:21] LABS: Creatine Kinase 29 U/L (30-135)
[2017-10-06 12:33] LABS: Creatine Kinase MB 0.4 ng/mL (0.0-2.4); Troponin I <0.012 ng/mL (0.000-0.034)
[2017-10-06] MEDS ORDERED: HEPARIN SODIUM,PORCINE 5,000 UNIT/ML 1 ML VIAL IV ONE (12:57)
[2017-10-06] MEDS ORDERED: NITROGLYCERIN SL TABS 0.4 MG TAB SUBLINGUAL PRN (12:59)
[2017-10-06] MEDS ORDERED: HEPARIN SOD,PORK IN 0.45% NACL 25,000 UNIT in 0.45% NACL 1 500ML.BAG IV SCH (13:00)
[2017-10-06 18:06] LABS: Creatine Kinase 21 U/L (30-135)
[2017-10-06] MEDS: NITROGLYCERIN OINT 1 INCH/GM PACKET TOPICAL SCH (18:10)
[2017-10-06 18:16] LABS: Creatine Kinase MB 0.4 ng/mL (0.0-2.4); Troponin I <0.012 ng/mL (0.000-0.034)
[2017-10-06] MEDS: oxyCODONE-APAP 5-325MG 1 EACH TAB PO PRN (19:58)
[2017-10-06] MEDS ORDERED: NALOXONE 0.4 MG/ML 1 ML VIAL IV PRN (21:14)
[2017-10-06] MEDS ORDERED: ACETAMINOPHEN TAB 325 MG TAB PO PRN (21:14)
[2017-10-06] MEDS ORDERED: ONDANSETRON 4 MG/2 ML VIAL IVP PRN (21:14)
[2017-10-06] MEDS ORDERED: LACTULOSE 20 GM/30 ML CUP PO PRN (21:14)
[2017-10-06] MEDS ORDERED: MAGNESIUM HYDROXIDE 2,400 MG/10 ML CUP PO PRN (21:14)
[2017-10-06] MEDS ORDERED: MELATONIN 3 MG TABLET PO PRN (21:14)
[2017-10-06] MEDS ORDERED: LORazepam 0.5 MG TAB PO PRN (21:14)
[2017-10-06] MEDS: ATORVASTATIN 20 MG TAB PO SCH (21:23)
[2017-10-06] MEDS: GABAPENTIN 300 MG CAP PO SCH (21:23)
[2017-10-06] MEDS: BUTALB/APAP/CAFF 50-325-40MG TAB PO PRN (21:23)
--- NOTE | 2017-10-06 21:54 | HP ---
HISTORY AND PHYSICAL DATE OF SERVICE: 10/06/2017 PRESENTING COMPLAINT: Chest pain. HISTORY OF PRESENTING COMPLAINT: This is a 67-year-old patient of Dr. Tripathi whose chronic stable medical conditions include fibromyalgia, osteoarthritis, depression, hyperlipidemia, rheumatoid arthritis, orthostatic hypertension, peripheral neuropathy, sleep deprivation, anxiety. The patient is going through a lot of stress, as she had a shoulder surgery repair done in 2013. Now the screws have come loose and patient has malunion of the left upper shoulder. Seen by Dr. Zee from [facility]. Patient has been referred to go down to [facility]. The patient normally just sleeps about 2 hours at a time. The patient presents since yesterday with squeezing sensation in the middle of the chest, tight. No radiation. Mild shortness of breath, some dizziness, minimal nausea. Patient did have hiatal hernia surgery done and reflux symptoms otherwise have been controlled. The patient is rather anxious and jittery. REVIEW OF SYSTEMS: CONSTITUTIONAL: Tired. HEENT: None. RESPIRATORY: None. CARDIOVASCULAR: As above. GASTROINTESTINAL: As above. GENITOURINARY: None. MUSCULOSKELETAL: Pain in the left shoulder. DERMATOLOGICAL: None. HEMATOLOGIC: None. LYMPHATIC: None. PSYCHIATRY: Anxious. NEUROLOGICAL: None. PAST MEDICAL HISTORY: Anxiety disorder, chronic pain syndrome, chronic anemia, peripheral neuropathy, chronic rheumatoid arthritis being followed by Dr. Don, hyperlipidemia, chronic fibromyalgia, chronic sleep deprivation. PAST SURGICAL HISTORY: , hysterectomy, cervical lumbar fusion, ORIF of the humerus with rods and screws, left breast lumpectomy, 2nd lumpectomy, breast reduction, left breast mastectomy, right tympanoplasty, Jarek fundoplasty for hernia, loop recorder. PSYCH HISTORY: Anxiety, depression, panic disorder. SOCIAL HISTORY: Patient's was murdered years ago. The patient has smoked for 14 years, stopped in 1977. 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 FAMILY HISTORY: Congestive heart failure, COPD. Mother in her 50s of heart attack, siblings have heart disease history. HOME MEDICATIONS: 1. Lipitor 20 mg q.h.s. 2. Zanaflex 2 mg q.12h p.r.n. 3. Percocet 5 one tablet every 6 hours p.r.n. 4. Wellbutrin XL 150 mg p.o. daily. 5. Effexor XR 225 p.o. daily. 6. Neurontin 300 mg p.o. t.i.d. 7. Folic acid 1 mg p.o. daily. 8. Vitamin B12 500 mcg p.o. daily. 9. Calcium with vitamin D3 2 tablets p.o. daily. 10.Fioricet 50/325/40 one tablet p.o. q.4 p.r.n. 11.Vitamin C 500 mg p.o. daily. ALLERGIES: SULFUR, TETRACYCLINE, LATEX, ATIVAN, TIDE and LAUNDRY SOAP. EXAMINATION: Temperature 98.2, pulse 82, respiratory 18, blood pressure 193/92, before that 150/79, pulse ox 97% on room air. GENERAL APPEARANCE: Thin build, lying in bed, very anxious-appearing. EYES: Pupils equal. Conjunctivae normal. HEENT: External nose and ears normal. Oral cavity normal. NECK: JVD not raised. Mass not palpable. RESPIRATORY: Effort normal. LUNGS: Fair air entry. CARDIOVASCULAR: First and second sounds normal. No edema. ABDOMEN: Soft, nontender. Liver and spleen not palpable. LYMPHATIC: No lymph nodes palpable in neck or axillae. PSYCHIATRY: Alert and oriented x3. Mood and affect very anxious-appearing. NEUROLOGICAL: Pupils equal. Cranial nerves grossly intact. Power and sensation grossly intact. Limited range of motion of the left shoulder. INVESTIGATIONS: White count 6.5, hemoglobin 13.8. Potassium 4.1, BUN and creatinine are normal. Troponin x2 negative. EKG: Normal sinus rhythm. Chest x-ray: Nil acute. ASSESSMENT: 1. Chest wall pain described as squeezing sensation, could well be esophageal spasm in a patient who has previously had Jarek fundoplication or it could be an element of panic attack, as the patient has immense anxiety. 2. Chronic fibromyalgia. 3. Chronic osteoarthritis. 4. Depression, not otherwise specified. 5. Hyperlipidemia. 6. Rheumatoid arthritis. 7. Peripheral neuropathy. 8. Chronic sleep deprivation. 9. 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 10.Possible gastroesophageal reflux disease. PLAN: At this point, we will start the patient on PPIs. In any case, get a cardiology opinion. The patient has been put on IV heparin. Cardiology was consulted. The patient did have a stress test about 2 years ago that was negative. MMODL / IJN: [id number] /
[2017-10-06] MEDS: PANTOPRAZOLE 40 MG TABLET PO SCH (21:57)
[2017-10-06 23:57] LABS: Creatine Kinase 22 U/L (30-135)
[2017-10-07 00:10] LABS: Creatine Kinase MB 0.3 ng/mL (0.0-2.4); Troponin I <0.012 ng/mL (0.000-0.034)
[2017-10-07 00:44] LABS: Cholesterol 136 mg/dL (<200); HDL Cholesterol 63 mg/dL (40-60); LDL Cholesterol,Calculated 51 mg/dL (0-99); Triglycerides 108 mg/dL (<150)
[2017-10-07] MEDS: NITROGLYCERIN OINT 1 INCH/GM PACKET TOPICAL SCH ×2 (01:57→11:06)
[2017-10-07] MEDS: oxyCODONE-APAP 5-325MG 1 EACH TAB PO PRN ×3 (02:12→19:30)
[2017-10-07] MEDS ORDERED: HEPARIN SODIUM,PORCINE 5,000 UNIT/ML 1 ML VIAL IV PRN (02:38)
[2017-10-07] MEDS: BUTALB/APAP/CAFF 50-325-40MG TAB PO PRN ×4 (03:25→23:33)
[2017-10-07] MEDS: PANTOPRAZOLE 40 MG TABLET PO SCH (09:00)
[2017-10-07] MEDS ORDERED: ASPIRIN 325 MG TAB PO SCH (09:00)
[2017-10-07] MEDS: ASPIRIN 81 MG PO SCH (09:00)
[2017-10-07] MEDS: CALCIUM CARBONATE LIQUID 500 MG/5 ML CUP PO SCH ×3 (09:00→17:42)
[2017-10-07] MEDS: ASCORBIC ACID 500 MG TAB PO SCH (09:00)
[2017-10-07] MEDS: VENLAFAXINE HCL ER 75 MG CAP PO SCH (09:00)
[2017-10-07] MEDS: CALCIUM CARB-VIT D 500MG-200UN 1 EACH TAB PO SCH (09:01)
[2017-10-07] MEDS: GABAPENTIN 300 MG CAP PO SCH ×3 (09:01→19:55)
[2017-10-07] MEDS: buPROPion XL 150 MG TAB.ER.24H PO SCH (09:01)
--- NOTE | 2017-10-07 10:07 | CONS ---
CONSULTATION HISTORY: Mrs. Neely is a 67-year-old female with remote history of dizziness and a loop recorder that was unremarkable who has seen Dr. Munguia and Dr. Duran in the past but not recently and presented with symptoms of chest discomfort. The discomfort started at rest on and off throughout Sunday, much worse yesterday. Came into the emergency room and was admitted. The patient has a history of arthritis and significant discomfort in the shoulder. She has history of fibromyalgia as well as prior history of hypertension, although when she was treated, she became hypotensive according to her. She denies any similar symptoms of chest pain. She was dyspneic with it. She had no dizziness or recent palpitation. No syncope. No PND, orthopnea, or peripheral edema. She is scheduled to be seen at [facility] tomorrow afternoon for further evaluation of her left shoulder. Her coronary risk factors are positive for history of hyperlipidemia and a strong family history of premature coronary disease. She is nondiabetic, nonsmoker. MEDICATION: At home include Lipitor 20 mg daily, Wellbutrin, Effexor, vitamin B, vitamin D, and vitamin C. REVIEW OF SYSTEMS: Respiratory system: She has no recent wheezing or cough. No history of documented obstructive lung disease. GI system: No recent GI bleeding. No peptic ulcer disease. system: No dysuria, hematuria. Nervous system: No history of stroke or seizure. PHYSICAL EXAMINATION: 67-year-old female, alert, oriented, no apparent distress. Blood pressure 102/50 with a heart rate in the 50s. HEAD: Normocephalic. Eyes sclerae anicteric. Neck good carotid upstroke. No bruit. No jugular venous distention. LUNGS: Clear to auscultation. HEART: Regular rate and rhythm, S1, S2. No S3, no S4. No murmur or rub. ABDOMEN: Soft, nontender. Positive bowel sounds. No megaly. EXTREMITIES: No edema. Intact distal pulses. LAB DATA: Cholesterol 136, LDL 51, BUN and creatinine 13 and 0.6, potassium 4.1, hemoglobin of 13.8. EKG revealed a sinus mechanism, normal axis and intervals. Normal electrocardiogram. Chest x-ray revealed no acute infiltrate. IMPRESSION: 1. Chest discomfort, has atypical features for ischemic heart disease, probably noncardiac. 2. History of hyperlipidemia. 3. Arthritis with discomfort in the left shoulder, scheduled to undergo further evaluation. RECOMMENDATIONS: I will stop her heparin and her nitrate. I will proceed with dobutamine stress echocardiogram in the morning. If it is unremarkable, then the patient should be able to be discharged home and follow up at [facility] regarding her shoulder discomfort. Thank you for this consult. We will follow with you. BLAINE / HAYLEY: [id number] /
[2017-10-07] MEDS: FOLIC ACID 1 MG TAB PO SCH (11:39)
[2017-10-07] MEDS: CYANOCOBALAMIN 500 MCG TAB PO SCH (11:40)
--- NOTE | 2017-10-07 13:07 | PN ---
PROGRESS NOTE DATE OF SERVICE: October 07, 2017. PRESENTING COMPLAINT: Chest pain. INTERVAL HISTORY: This patient presented with somewhat chest pain appears to be more musculoskeletal and a psychosomatic component. The patient also has got this chronic pain in the left shoulder, which she has to go down to [facility]. Cardiology is planning to do a stress test tomorrow. REVIEW OF SYSTEMS: Done for constitutional, cardiovascular, GI, pulmonary, musculoskeletal and findings as above. Currently no anterior chest wall pain, only shoulder pain. PHYSICAL EXAMINATION: Temperature 98.1 pulse 88, respiratory rate 16, blood pressure 154/70, pulse ox 99% on room air. General appearance: Sitting up in bed comfortable, but anxious appearing. Eyes: Pupils equal, conjunctivae normal. HEENT external appearance of nose and ears normal. Oral cavity normal. Neck JVD not raised. Mass not palpable. Respiratory effort: Lungs fair entry. Cardiovascular 1st and 2nd sounds normal. No edema. ABDOMEN: Soft, nontender. Liver and spleen not palpable. Psychiatry: Alert and oriented x3. Mood and affect anxious-appearing. INVESTIGATIONS: Troponin times 3 negative. ASSESSMENT: 1. Anterior chest wall pain could be esophageal spasm, rule out a cardiac cause for stress test tomorrow. 2. Chronic fibromyalgia. 3. Chronic osteoarthritis. 4. Depression, not otherwise specified. 5. Hyperlipidemia. 6. Rheumatoid arthritis. 7. Peripheral neuropathy. 8. Chronic sleep deprivation. 9. Chronic nonunion at left upper humerus. 10.Possible gastroesophageal reflux disease. PLAN: The patient wanted more [place] for her left shoulder pain. Did explain to her at length that this may be detrimental in the long run. She is agreeable to using a sling intermittently in the left arm to support the arm and also use a heating pad and ice pack. The patient is due for a stress test tomorrow. MMODL / IJN: [id number] /
[2017-10-07] MEDS: ATORVASTATIN 20 MG TAB PO SCH (19:55)
[2017-10-08] MEDS: oxyCODONE-APAP 5-325MG 1 EACH TAB PO PRN ×2 (00:51→06:34)
[2017-10-08] MEDS: BUTALB/APAP/CAFF 50-325-40MG TAB PO PRN ×2 (04:08→11:35)
[2017-10-08] MEDS ORDERED: DOBUTamine DRIP for NUC MED 250 MG in DEXTROSE/WATER 1 250ML.BAG IV ONE (06:00)
[2017-10-08 08:51] VITALS: RESP 16
[2017-10-08] MEDS: buPROPion XL 150 MG TAB.ER.24H PO SCH (09:10)
[2017-10-08] MEDS: GABAPENTIN 300 MG CAP PO SCH (09:11)
[2017-10-08] MEDS: VENLAFAXINE HCL ER 75 MG CAP PO SCH (09:11)
[2017-10-08] MEDS: ASPIRIN 81 MG PO SCH (09:11)
[2017-10-08] MEDS: PANTOPRAZOLE 40 MG TABLET PO SCH (09:11)
--- NOTE | 2017-10-08 11:16 | P.PN ---
Subjective Progress Note Date: 10/08/17 Mrs. Neely is seen in follow-up today for consultation for chest pain. She continues to have intermittent symptoms of chest discomfort overnight that seems to be related to her shoulder and is positional. Telemetry tracings have been unremarkable. Blood pressure 144/76 heart rate 64 afebrile maintaining oxygen saturation on room air. Objective - Vital Signs Vital signs: Vital Signs Temp 97.9 F 10/08/17 08:00 Pulse 64 10/08/17 08:00 Resp 16 10/08/17 08:00 BP 144/76 10/08/17 08:00 Pulse Ox 98 10/08/17 08:00 Intake & Output 10/07/17 10/08/17 10/08/17 18:59 06:59 18:59 Intake Total 240 Balance 240 Intake: Oral 240 Other: Voiding Method Toilet Toilet # Voids 1 - Exam GENERAL: Well-appearing, well-nourished and in no acute distress. NECK: Supple without JVD or thyromegaly. LUNGS: Breath sounds clear to auscultation bilaterally. Respiration equal and unlabored. No wheezes, rales or rhonchi. HEART: Regular rate and rhythm without murmurs, rubs or gallops. S1 and S2 heard. EXTREMITIES: Normal range of motion, no edema. No clubbing or cyanosis. Peripheral pulses intact and strong. - Labs CBC & Chem 7: 10/06/17 11:19 10/06/17 11:19 Assessment and Plan Assessment: ASSESSMENT 1. Chest pain, atypical. 2. Dyslipidemia 3. Arthritis with discomfort in the left shoulder, scheduled to undergo further evaluation today at [facility]. PLAN Dobutamine stress echocardigram was performed and is negative for stress induced ichemia. She is stable from a cardiac perspective. Follow up with Dr. Brown in 2 weeks. The above impression and plan of care have been discussed and directed by the signing physician. Ada Garibay, nurse practitioner, acting as scribe for signing physician.
[2017-10-08] MEDS: CALCIUM CARBONATE LIQUID 500 MG/5 ML CUP PO SCH ×2 (11:30→11:31)
[2017-10-08] MEDS: ASCORBIC ACID 500 MG TAB PO SCH (11:31)
[2017-10-08] MEDS: CYANOCOBALAMIN 500 MCG TAB PO SCH (11:31)
[2017-10-08] MEDS: FOLIC ACID 1 MG TAB PO SCH (11:31)
[2017-10-08] MEDS: CALCIUM CARB-VIT D 500MG-200UN 1 EACH TAB PO SCH (11:31)
--- NOTE | 2017-10-08 11:41 | ECHOS ---
STRESS ECHOCARDIOGRAM INDICATIONS: Chest pain. BASELINE HEART RATE: 58 BASELINE BLOOD PRESSURE: 97/55 MAXIMUM HEART RATE: 135 MAXIMUM BLOOD PRESSURE: 172/72 85% MPHR: 132 100% MPHR: 155 MAXIMUM STAGE REACHED: 4 TOTAL EXERCISE TIME: 10:35 CLINICAL INFORMATION: Baseline EKG shows sinus bradycardia, normal axis, normal intervals. Patient was given intravenous dobutamine over a period of 10.5 minutes as per protocol. Did not have chest pain, attained 87% of predicted maximal heart rate without any ST-segment depression. Baseline echo shows normal left ventricular size wall motion systolic function. Post dobutamine infusion, there is normal hyperdynamic response of all segments of myocardium noted. CONCLUSION: 1. Negative stress test by EKG criteria. 2. Negative dobutamine stress echo. MMODL / IJN: [id number] /
[2017-10-08 11:44] VITALS: BP 110/75; PULSE 70; TEMP 98.2
--- NOTE | 2017-10-09 00:07 | DS ---
DISCHARGE SUMMARY FINAL DIAGNOSES: 1. Chest pain, possibly from esophageal spasm, could be psychosomatic. 2. Chronic fibromyalgia. 3. Chronic osteoarthritis. 4. Depression, not otherwise specified. 5. Hyperlipidemia. 6. Rheumatoid arthritis. 7. Peripheral neuropathy, idiopathic. 8. Chronic sleep deprivation. 9. 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 HOSPITAL COURSE: This patient presented with chest pain, somewhat atypical. Did undergo a stress test that came back negative, could be from esophageal spasm. The patient was seen by Dr. Brown from Cardiology and did undergo dobutamine stress echocardiogram. The patient due to follow up at [facility] for her left shoulder malunion. Care was discussed with the patient in detail. On examination, lungs are clear. CARDIOVASCULAR: First and second sounds normal. DISCHARGE MEDICATIONS: 1. Folic acid 1 mg p.o. daily. 2. Calcium 600 with vitamin D3 2 tablets p.o. daily. 3. Vitamin C 500 mg p.o. daily. 4. Wellbutrin XL 150 mg p.o. daily. 5. Vitamin B12 500 mcg p.o. daily. 6. Effexor XR 225 mg p.o. daily. 7. Fioricet 1 tab p.o. q.4 p.r.n. 8. Neurontin 300 mg p.o. t.i.d. 9. Percocet 5 one tab q.6h p.r.n. 10.Zanaflex 2 mg p.o. q.12 p.r.n. 11.Lipitor 20 mg q.h.s. Follow up with Dr. Brown on 10/29/2017. Follow up with Dr. Tripathi in 3 days. Patient to keep her appointment at [facility]. MMODL / IJN: [id number] /
--- NOTE | 2017-10-29 20:12 | CDI ---
Outpatient Documentation Clarification Form Date: 10-29-17 CDS/Canvas Shrinker Name: SHIRAZ CARRILLO Phone: If any questions, call [facility] [employer] Tender at [phone] Patient Name: BOBBY GUZMAN Admit Date: 10-06-17 Discharge Date: 10-08-17 ATTENTION: The [facility] Coding Staff appreciate your assistance in clarifying documentation. Please respond to the clarification below the line at the bottom and electronically sign. The [facility] Coding staff will review the response and follow-up if needed. Please note: Queries are made part of the Legal Health Record. If you have any questions, please contact the Press And Blow Machine Tender. Dear Dr. LANDAVERDE, PLEASE ADD "HYPERTENSION" BELOW THE LINE IF APPLICABLE TO PATIENT. IF PATIENT DOES NOT HAVE HYPERTENSION, PLEASE ADD "NO HISTORY OF HYPERTENSION" BELOW THE LINE. THANK YOU FOR YOUR TIME, SHIRAZ CARRILLO MTDD
== END 2017-10-08 16:23 | disposition home or self-care (01) ==
LOC: EC 11:04 → 3OBS 13:12 → 3SUR 19:00 → 3OBS 10-07 19:07
PROVIDERS: ADMIT Hospitalist; ATTEND Hospitalist
DX: R07.89 Other chest pain (principal); R11.0 Nausea; R06.00 Dyspnea, unspecified; R06.02 Shortness of breath; M79.7 Fibromyalgia; M19.90 Unspecified osteoarthritis, unspecified site; F32.9 Major depressive disorder, single episode, unspecified; E78.5 Hyperlipidemia, unspecified; M06.9 Rheumatoid arthritis, unspecified; G60.9 Hereditary and idiopathic neuropathy, unspecified; Z72.820 Sleep deprivation; G89.4 Chronic pain syndrome; Z82.49 Family history of ischemic heart disease and other diseases of the circulatory system; Z79.899 Other long term (current) drug therapy; Z88.2 Allergy status to sulfonamides; Z88.1 Allergy status to other antibiotic agents; Z91.040 Latex allergy status; Z88.8 Allergy status to other drugs, medicaments and biological substances; Z91.048 Other nonmedicinal substance allergy status; M54.9 Dorsalgia, unspecified; G43.909 Migraine, unspecified, not intractable, without status migrainosus; Z85.3 Personal history of malignant neoplasm of breast; Z85.41 Personal history of malignant neoplasm of cervix uteri; Z86.19 Personal history of other infectious and parasitic diseases; Z86.010 Personal history of colon polyps; Z98.1 Arthrodesis status; F43.10 Post-traumatic stress disorder, unspecified; F41.0 Panic disorder [episodic paroxysmal anxiety]; G62.9 Polyneuropathy, unspecified; M19.012 Primary osteoarthritis, left shoulder; M96.0 Pseudarthrosis after fusion or arthrodesis; Z82.5 Family history of asthma and other chronic lower respiratory diseases; M81.0 Age-related osteoporosis without current pathological fracture; Z87.891 Personal history of nicotine dependence; T84.12 Displacement of internal fixation device of bones of limb
CPT/HCPCS: 96375; 96376 ×3; 96365 ×2; 96366 ×4; 99291 ×2; 96374; 36415; 93005; 93351; 80061; 80053; 82550; 82553; 83735; 84484; 85025; 85610; 85730 ×2; 71046; G0378 ×3; J1644 ×3; J1250; J2270

== ENCOUNTER 2017-10-17 08:45 | Day surgery (SDC) | payer MEDICARE ==
[2017-10-11 14:32] VITALS: BMI 20.5
[2017-10-17 09:50] VITALS: RESP 16; TEMP 98.3
[2017-10-17] MEDS ORDERED: LIDOCAINE 1% 20 ML VIAL (10MG/ML) FOR IV START INTRADERMA ONE (09:54)
--- NOTE | 2017-10-17 10:22 | P.OP ---
Date of Procedure: 10/17/17 Surgeon: Cameron Galeas Description of Procedure: . PROCEDURE 1. Cervical epidural steroid injection under fluoroscopic guidance, C7-T1 PREOPERATIVE DIAGNOSIS: 1- Cervical Degenerative Disc Diseases 2- Cervical radiculopathy., 3-cervical spondylosis with cervical Facet arthropathy without myelopathy POSTOPERATIVE DIAGNOSIS: : 1- Cervical Degenerative Disc Diseases , 2- Cervical radiculopathy. 3-,cervical spondylosis with cervical Facet arthropathy without myelopathy ANESTHESIA: Local anesthesia with 1% lidocaine and IV sedation with Versed 2 mg EBL 0 PROCEDURE INDICATION: The patient with neck pain and radiculitis unresponsive to conservative treatment consents for procedure. PROCEDURE DESCRIPTION / TECHNIQUE: The patient was seen and identified in the preoperative area. Risks, benefits, complications, including but not limited to infections ,bleeding , allergic reactions to the medications , failure to relieve pain and increase in pain. Alternatives were discussed with the patient , the patient agreed to proceed with the procedure and signed the consent. Patient was taken to the OR and time out was completed. The patient was placed in the prone position on the procedure table. A pillow was placed under the patients chest to increase the cervical interlaminar space. The cervical area was prepped and draped in the usual sterile fashion. Vital signs were closely monitored during the procedure. Conscious sedation was used during the procedure to decrease patients anxiety. Using anterior-posterior fluoroscopy, the C7-T1 interlaminar space was identified and the skin over this site was marked and then infiltrated with 1% lidocaine subcutaneously. Subsequently, a 20-gauge 3-1/2-inch Tuohy epidural needle was inserted and advanced toward the epidural space by means of the loss of resistance technique and guided by AP and lateral fluoroscopy. The correct needle position in the epidural space was verified in the AP and lateral projection. Again after negative aspiration, mixture containing 20 mg Dexamethasone and 2 ml of preservative-free normal saline injected Needle was withdrawn intact, skin was cleansed, and bandages were applied. Complications= none. Disposition= patient was placed in supine position and transferred to the recovery room area in stable condition and there was no evidence of upper or lower extremity motor or sensory deficit after the procedure patient was discharged from recovery room after discharge criteria met and home discharge instructions was given by the staff and patient will follow with the pain clinic in 2-4 weeks
[2017-10-17] MEDS ORDERED: IV FLUID CONTINUATION 1,000 ML IV ONE (10:40)
--- NOTE | 2017-10-17 10:40 | FL ---
EXAMINATION TYPE: FL guided pain mgmt statistic DATE OF EXAM: 10/17/2017 HISTORY: Pain cervical epidural 1 sec fl time used 1 image scanned into pacs doctor garg
[2017-10-17 10:59] VITALS: BP 125/72; PULSE 71
== END 2017-10-17 11:20 | disposition home or self-care (01) ==
LOC: ORPAIN 08:45
PROVIDERS: ATTEND Pain Medicine Pain Medicine
DX: M47.22 Other spondylosis with radiculopathy, cervical region (principal); M50.10 Cervical disc disorder with radiculopathy, unspecified cervical region; Z88.2 Allergy status to sulfonamides; Z88.8 Allergy status to other drugs, medicaments and biological substances; Z88.1 Allergy status to other antibiotic agents; Z91.040 Latex allergy status
CPT/HCPCS: 62321; J2250; J1100

== ENCOUNTER 2017-10-26 21:38 | Observation (INO) | payer MEDICARE ==
[2017-10-26] MEDS ORDERED: MORPHINE SULFATE 4 MG/ML SYRINGE IVP STA (22:03)
--- NOTE | 2017-10-26 22:03 | ED ---
General Adult HPI - General Chief complaint: Chest Pain Stated complaint: Chest Pain Time Seen by Provider: 10/26/17 21:39 Source: patient, EMS, RN notes reviewed, old records reviewed Mode of arrival: EMS Limitations: no limitations - History of Present Illness Initial comments: 67-year-old female presenting with chief complaint of chest pain. Patient does have multiple complaints including intermittent headache balance issues, she has a history of syncope which is been worked up in the past. History of fibromyalgia. She states she does have rheumatoid arthritis but has not been on medication for this for the past 2 years. Her chief complaint today is chest pain which is been present for the past 2 days. Has been constant. Describes the pain as central substernal squeezing pain. She does report some pain in her left shoulder although she has a chronic issue with her shoulder status post fracture several years ago. Complains of nausea with no vomiting. She states she did feel clammy at times with this pain. She has no known history of CAD. She was seen several weeks ago and according to the patient had a stress test at that time that was normal. She has a positive family history of CAD. - Related Data Home Medications Medication Instructions Recorded Confirmed Folic Acid 1 mg PO DAILY 10/17/13 10/26/17 Calcium Carbonate/Vitamin D3 2 tab PO DAILY 05/16/15 10/26/17 [Calcium 600-Vit D3 400 Tablet] Ascorbic Acid [Vitamin C] 500 mg PO DAILY 12/31/15 10/26/17 buPROPion XL [Wellbutrin XL] 150 mg PO DAILY 02/04/16 10/26/17 Cyanocobalamin [Vitamin B-12] 500 mcg PO DAILY 06/08/16 10/26/17 Venlafaxine HCl [Effexor XR] 225 mg PO DAILY 03/02/17 10/26/17 Butalb/APAP/Caff 50-325-40Mg 1 tab PO Q4HR PRN 06/06/17 10/26/17 [Fioricet 50-325-40] Atorvastatin [Lipitor] 20 mg PO HS 10/06/17 10/26/17 Cholecalciferol [Vitamin D3] 4,000 unit PO DAILY 10/26/17 10/26/17 Previous Rx's Medication Instructions Recorded Gabapentin [Neurontin] 300 mg PO TID #90 cap 09/17/17 oxyCODONE HCL/ACETAMINOPHEN 1 tab PO Q6HR PRN #90 tab 09/17/17 [Percocet 5-325 mg] tiZANidine HCL [Zanaflex] 2 mg PO Q12H PRN #60 capsule 09/17/17 Allergies Allergy/AdvReac Type Severity Reaction Status Date / Time Sulfa (Sulfonamide Allergy Severe Rash/Hives Verified 10/26/17 22:04 Antibiotics) Tetracyclines Allergy Severe Rash/Hives Verified 10/26/17 22:04 latex Allergy Rash/Hives Verified 10/26/17 22:04 lorazepam [From Ativan] AdvReac Confusion Verified 10/26/17 22:04 TIDE AND EXTRA LAUNDRY SOAP Allergy Rash/Hives Uncoded 10/17/17 09:50 Review of Systems ROS Statement: Those systems with pertinent positive or pertinent negative responses have been documented in the HPI. ROS Other: All systems not noted in ROS Statement are negative. Past Medical History Past Medical History: Cancer, COPD, Fibromyalgia, GI Bleed, Hyperlipidemia, Musculoskeletal Disorder, Osteoarthritis (OA), Rheumatoid Arthritis (RA), Syncope Additional Past Medical History / Comment(s): Hx Migraines,falls, Chronic back pain, DDD. Cervical and breast cancer." hx hep A and B". hx Anemia with blood transfusions and iron infusions,hx [id number], osteoporosis,tremors, t11 fx. History of Any Multi-Drug Resistant Organisms: None Reported Past Surgical History: Section, Hysterectomy, Orthopedic Surgery, Tonsillectomy Additional Past Surgical History / Comment(s): Cervical and Lumbar fusion; ORIF of Humerus with carlos and screws. lt breast lumpectomy 2001, 2ND lumpectomy [place] 2003 was [place]. Breast Reduction 2009.-had non healing wound afterwards then had wound closure and skin graft,Left breast mastectomy 2016, RT tympanoplasty. D&C. EXC Cataract RITU. Jarek Fundoplasty for hernia, removal of hardware from left shoulder, loop recorder 2013 Past Anesthesia/Blood Transfusion Reactions: No Reported Reaction, Family History of Problems w/ Anesthesia Additional Past Anesthesia/Blood Transfusion Reaction / Comment(s): SISTER TAKES LONGER TO AWAKEN, YEARS AGO. Past Psychological History: Anxiety, Depression, Panic Disorder, PTSD Smoking Status: Former smoker Past Alcohol Use History: None Reported Past Drug Use History: None Reported - Past Family History Father Family Medical History: Congestive Heart Failure (CHF), COPD Additional Family Medical History / Comment(s): at age 72 Mother Family Medical History: Myocardial Infarction ([place]) Additional Family Medical History / Comment(s): 1987 age 57 mi General Exam Limitations: no limitations General appearance: alert, in no apparent distress Head exam: Present: atraumatic, normocephalic Eye exam: Present: normal appearance, PERRL, EOMI ENT exam: Present: normal exam Neck exam: Present: normal inspection. Absent: tenderness, meningismus Respiratory exam: Present: normal lung sounds bilaterally. Absent: respiratory distress, wheezes, rales Cardiovascular Exam: Present: regular rate, normal rhythm GI/Abdominal exam: Present: soft. Absent: distended, tenderness, guarding Extremities exam: Present: normal inspection, normal capillary refill, other ( Bilateral radial and bilateral DP pulses 2+). Absent: pedal edema, calf tenderness Neurological exam: Present: alert, oriented X3, CN II-XII intact. Absent: motor sensory deficit Psychiatric exam: Present: anxious Skin exam: Present: warm, dry, intact. Absent: cyanosis, diaphoretic Course Vital Signs 10/26/17 21:57 Temperature 98.3 F Pulse Rate 75 Respiratory 16 Rate Blood Pressure 164/86 O2 Sat by Pulse 98 Oximetry EKG Findings - EKG Comments: EKG Findings:: EKG, normal sinus rhythm 2 days in the inferior leads consistent with possible inferior infarction. T waves are upright, no ST segment elevation. Ventricular rate of 81, WI interval 132, QRS duration 74, QTC 436 Medical Decision Making - Medical Decision Making 67-year-old female presenting for evaluation of chest pain. Medical record is reviewed, patient did have a negative stress test 2 weeks ago. She states her pain today is somewhat different and more severe than her chest pain from 2 weeks ago. She was given aspirin and nitroglycerin by EMS with some improvement in her symptoms. She is very concerned because her mother of a myocardial infarction and her father had heart disease. EKG is negative for definitive signs of ongoing ischemia. Chest x-ray is negative for acute cardiopulmonary disease, there is a nonhealing union of the left humerus which is chronic. Laboratory studies including CBC, CMP and troponin are negative. Patient will be placed in observation for serial cardiac enzymes, cardiology consultation and telemetry. - Lab Data Result diagrams: 10/26/17 21:56 05/11/18 21:56 Lab Results 10/26/17 10/26/17 10/26/17 Range/Units 21:56 21:56 21:56 WBC 5.8 (3.8-10.6) k/uL RBC 3.75 L (3.80-5.40) m/uL Hgb 11.4 (11.4-16.0) gm/dL Hct 34.6 (34.0-46.0) % MCV 92.2 (80.0-100.0) fL MCH 30.5 (25.0-35.0) pg MCHC 33.0 (31.0-37.0) g/dL RDW 13.6 (11.5-15.5) % Plt Count 237 (150-450) k/uL Neutrophils % 44 % Lymphocytes % 39 % Monocytes % 9 % Eosinophils % 4 % Basophils % 1 % Neutrophils # 2.6 (1.3-7.7) k/uL Lymphocytes # 2.2 (1.0-4.8) k/uL Monocytes # 0.5 (0-1.0) k/uL Eosinophils # 0.2 (0-0.7) k/uL Basophils # 0.0 (0-0.2) k/uL PT (9.0-12.0) sec INR (<1.2) APTT (22.0-30.0) sec Sodium 144 (137-145) mmol/L Potassium 3.8 (3.5-5.1) mmol/L Chloride 111 H (98-107) mmol/L Carbon Dioxide 20 L (22-30) mmol/L Anion Gap 13 mmol/L BUN 14 (7-17) mg/dL Creatinine 0.55 (0.52-1.04) mg/dL Est GFR (CKD-EPI)AfAm >90 (>60 ml/min/1.73 sqM) Est GFR (CKD-EPI)NonAf >90 (>60 ml/min/1.73 sqM) Glucose 93 (74-99) mg/dL Calcium 9.3 (8.4-10.2) mg/dL Magnesium 1.8 (1.6-2.3) mg/dL Total Bilirubin 0.2 (0.2-1.3) mg/dL AST 21 (14-36) U/L ALT 28 (9-52) U/L Alkaline Phosphatase 134 H (38-126) U/L Total Creatine Kinase 33 (30-135) U/L CK-MB (CK-2) 0.7 (0.0-2.4) ng/mL CK-MB (CK-2) Rel Index 2.1 Troponin I <0.012 (0.000-0.034) ng/mL NT-Pro-B Natriuret Pep pg/mL Total Protein 5.9 L (6.3-8.2) g/dL Albumin 3.7 (3.5-5.0) g/dL Lipase 91 (23-300) U/L 10/26/17 10/26/17 Range/Units 21:56 21:56 WBC (3.8-10.6) k/uL RBC (3.80-5.40) m/uL Hgb (11.4-16.0) gm/dL Hct (34.0-46.0) % MCV (80.0-100.0) fL MCH (25.0-35.0) pg MCHC (31.0-37.0) g/dL RDW (11.5-15.5) % Plt Count (150-450) k/uL Neutrophils % % Lymphocytes % % Monocytes % % Eosinophils % % Basophils % % Neutrophils # (1.3-7.7) k/uL Lymphocytes # (1.0-4.8) k/uL Monocytes # (0-1.0) k/uL Eosinophils # (0-0.7) k/uL Basophils # (0-0.2) k/uL PT 9.8 (9.0-12.0) sec INR 1.0 (<1.2) APTT 22.8 (22.0-30.0) sec Sodium (137-145) mmol/L Potassium (3.5-5.1) mmol/L Chloride (98-107) mmol/L Carbon Dioxide (22-30) mmol/L Anion Gap mmol/L BUN (7-17) mg/dL Creatinine (0.52-1.04) mg/dL Est GFR (CKD-EPI)AfAm (>60 ml/min/1.73 sqM) Est GFR (CKD-EPI)NonAf (>60 ml/min/1.73 sqM) Glucose (74-99) mg/dL Calcium (8.4-10.2) mg/dL Magnesium (1.6-2.3) mg/dL Total Bilirubin (0.2-1.3) mg/dL AST (14-36) U/L ALT (9-52) U/L Alkaline Phosphatase (38-126) U/L Total Creatine Kinase (30-135) U/L CK-MB (CK-2) (0.0-2.4) ng/mL CK-MB (CK-2) Rel Index Troponin I (0.000-0.034) ng/mL NT-Pro-B Natriuret Pep 65 pg/mL Total Protein (6.3-8.2) g/dL Albumin (3.5-5.0) g/dL Lipase (23-300) U/L Disposition Clinical Impression: Chest pain Disposition: ADMITTED IP TO THIS [facility] Condition: Stable Is patient prescribed a controlled substance at d/c from ED?: No Referrals: Easton Tripathi DO [Primary Care Provider] - 1-2 days Decision to Admit Reason: Admit from EC Decision Date: 10/26/17 Decision Time: 23:05
[2017-10-26 22:09] LABS: Basophils % (A) 1 %; Eosinophils # (A) 0.2 k/uL (0-0.7); Eosinophils % (A) 4 %; HCT 34.6 % (34.0-46.0); HGB 11.4 gm/dL (11.4-16.0); Lymphocytes # (A) 2.2 k/uL (1.0-4.8); Lymphocytes % (A) 39 %; MCH 30.5 pg (25.0-35.0); MCV 92.2 fL (80.0-100.0); Mean Platelet Volume 7.4; Monocytes # (A) 0.5 k/uL (0-1.0); Monocytes % (A) 9 %; Neutrophils # (A) 2.6 k/uL (1.3-7.7); Neutrophils % (A) 44 %; Platelet Count 237 k/uL (150-450); RBC 3.75 m/uL (3.80-5.40); RDW 13.6 % (11.5-15.5); WBC 5.8 k/uL (3.8-10.6)
[2017-10-26 22:18] LABS: ALT 28 U/L (9-52); AST 21 U/L (14-36); Albumin 3.7 g/dL (3.5-5.0); Alkaline Phosphatase 134 U/L (38-126); Anion Gap 13 mmol/L; Blood Urea Nitrogen 14 mg/dL (7-17); Calcium 9.3 mg/dL (8.4-10.2); Carbon Dioxide 20 mmol/L (22-30); Chloride 111 mmol/L (98-107); Glucose 93 mg/dL (74-99); Lipase 91 U/L (23-300); Magnesium 1.8 mg/dL (1.6-2.3); Potassium 3.8 mmol/L (3.5-5.1); Sodium 144 mmol/L (137-145); Total Bilirubin 0.2 mg/dL (0.2-1.3); Total Protein 5.9 g/dL (6.3-8.2)
--- NOTE | 2017-10-26 22:19 | XR ---
EXAMINATION TYPE: XR chest 2V DATE OF EXAM: 10/26/2017 COMPARISON: 10/06/2017 HISTORY: Chest pain TECHNIQUE: Frontal and lateral views of the chest are obtained. FINDINGS: Heart and mediastinum are normal. Lungs are clear of consolidation. There is no pleural ef fusion. 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 IMPRESSION: No active cardiopulmonary disease. No change.
[2017-10-26 22:21] LABS: Partial Thromboplastin Time 22.8 sec (22.0-30.0); Prothrombin Time 9.8 sec (9.0-12.0)
[2017-10-26 22:27] LABS: Creatine Kinase 33 U/L (30-135)
[2017-10-26 22:41] LABS: Creatine Kinase MB 0.7 ng/mL (0.0-2.4); Troponin I <0.012 ng/mL (0.000-0.034)
[2017-10-26] MEDS ORDERED: ONDANSETRON 4 MG/2 ML VIAL IVP PRN (23:00)
[2017-10-26] MEDS ORDERED: NALOXONE 0.4 MG/ML 1 ML VIAL IV PRN (23:00)
[2017-10-26] MEDS ORDERED: IBUPROFEN 400 MG TAB PO PRN (23:00)
[2017-10-26] MEDS ORDERED: ACETAMINOPHEN TAB 325 MG TAB PO PRN (23:00)
[2017-10-26] MEDS ORDERED: NITROGLYCERIN SL TABS 0.4 MG TAB SUBLINGUAL PRN (23:02)
[2017-10-27 00:39] VITALS: BMI 21.6
[2017-10-27] MEDS: MORPHINE SULFATE 4 MG/ML SYRINGE IV PRN ×4 (00:47→13:27)
[2017-10-27 04:10] LABS: Creatine Kinase 29 U/L (30-135)
[2017-10-27 04:24] LABS: Creatine Kinase MB 0.8 ng/mL (0.0-2.4); Troponin I <0.012 ng/mL (0.000-0.034)
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
[2017-10-27 11:11] LABS: Creatine Kinase 27 U/L (30-135)
[2017-10-27 11:23] LABS: Creatine Kinase MB 0.8 ng/mL (0.0-2.4); Troponin I <0.012 ng/mL (0.000-0.034)
[2017-10-27] MEDS ORDERED: CHOLECALCIFEROL 1,000 UNIT TAB PO SCH (13:30)
[2017-10-27] MEDS ORDERED: CALCIUM CARB-VIT D 500MG-200UN 1 EACH TAB PO SCH (13:30)
[2017-10-27] MEDS ORDERED: buPROPion XL 150 MG TAB.ER.24H PO SCH (13:30)
[2017-10-27] MEDS ORDERED: oxyCODONE-APAP 5-325MG 1 EACH TAB PO PRN (13:30)
[2017-10-27] MEDS ORDERED: CYANOCOBALAMIN 500 MCG TAB PO SCH (13:30)
[2017-10-27] MEDS ORDERED: ASCORBIC ACID 500 MG TAB PO SCH (13:30)
[2017-10-27] MEDS ORDERED: VENLAFAXINE HCL ER 75 MG CAP PO SCH (13:30)
[2017-10-27] MEDS ORDERED: BUTALB/APAP/CAFF 50-325-40MG TAB PO PRN (13:30)
[2017-10-27] MEDS ORDERED: MORPHINE ORAL SOLN 10 MG/5 ML CUP PO PRN (14:01)
[2017-10-27] MEDS ORDERED: GABAPENTIN 300 MG CAP PO SCH (16:00)
[2017-10-27 16:23] VITALS: BP 150/74; PULSE 74; RESP 16; TEMP 97.9
--- NOTE | 2017-10-27 18:22 | HP ---
HISTORY AND PHYSICAL DATE OF SERVICE: 10/27/2017 PRESENT COMPLAINT: Chest pain. HISTORY OF PRESENTING COMPLAINT: This is a pleasant 67-year-old patient with extensive medical history, follows with Dr. Tripathi. Chronic stable medical conditions include fibromyalgia, osteoarthritis, depression, hyperlipidemia, rheumatoid arthritis, orthostatic hypertension, peripheral neuropathy, sleep deprivation, anxiety. The patient has a shoulder problem for which she saw Dr. Zee. Now she is following up at [facility] with a supervisory training specialist. The patient does sleep too much. The patient presents with left anterior wall chest pain; somewhat sharp, sometimes going down the left arm. No dizziness. No lightheadedness. No shortness of breath. Not related to exertion. The patient's symptoms seem to be more related to her shoulder, she states. The patient did have a stress test on the last admission about a month ago. REVIEW OF SYSTEMS: CONSTITUTIONAL: Tired. HEENT: None. RESPIRATORY: None. CARDIOVASCULAR: As above. GASTROINTESTINAL: None. MUSCULOSKELETAL: As above. DERMATOLOGICAL: None. HEMATOLOGIC: None. LYMPHATICS: None. PSYCHIATRY: Anxiety. NEUROLOGICAL: None. PAST MEDICAL HISTORY: Anxiety, chronic pain syndrome, chronic anemia, peripheral neuropathy, chronic rheumatoid arthritis being followed by Dr. Don, hyperlipidemia, chronic fibromyalgia, chronic sleep deprivation. PAST SURGICAL HISTORY: , hysterectomy, cervical lumbar fusion, ORIF of the humerus with rods and screws, left breast lumpectomies, breast reduction, left breast mastectomy, right tympanoplasty, Jarek fundoplication for hernia, loop recorder. PSYCHIATRIC HISTORY: Anxiety, depression, panic disorder. SOCIAL HISTORY: The patient's was murdered years ago. The patient smoked for 14 years stopped in 1977. The patient did crack and other drugs in the past, but has been clean for 18 years. FAMILY HISTORY: Congestive heart failure, COPD. Mother in her 50s of heart attack. Siblings have had heart disease. HOME MEDICATIONS: 1. Zanaflex 2 mg p.o. q.12 p.r.n. 2. Percocet 5 one tablet p.o. every 6 hours p.r.n. 3. Wellbutrin XL 150 mg p.o. daily. 4. Effexor XR 225 mg p.o. daily. 5. Neurontin 300 mg p.o. t.i.d. 6. Folic acid 1 mg p.o. daily. 7. Vitamin B12 500 mcg p.o. daily. 8. Vitamin D3 4000 units p.o. daily. 9. Calcium 600. 10.Vitamin D3 2 tablets p.o. daily. 11.Fioricet 1 tablet p.o. q.4 p.r.n. 12.Lipitor 20 mg q.h.s. 13.Vitamin C 500 mg p.o. daily. ALLERGIES: SULFA, TETRACYCLINE, LATEX, LORAZEPAM, TIDE AND XTRA LAUNDRY SOAPS. PHYSICAL EXAMINATION: VITAL SIGNS: On presentation, temperature 98.3, pulse 75, respirations 16, blood pressure 150/86, pulse ox 98% on room air. GENERAL APPEARANCE: Thin build, sitting on the edge of bed, anxious-appearing. EYES: Pupils equal. Conjunctivae normal. HEENT: External appearance of nose and ears normal. Oral cavity normal. NECK: JVD not raised. Mass not palpable. RESPIRATORY: Effort normal. LUNGS: Fair air entry. CARDIOVASCULAR: First and second sounds normal. No edema. ABDOMEN: Soft, nontender. Liver, spleen not palpable. LYMPHATIC: No lymph node palpable in neck or axillae. PSYCHIATRY: Alert and oriented x3. Mood and affect anxious-appearing. NEUROLOGICAL: Pupils equal. Cranial nerve grossly intact. Power and sensation grossly intact. MUSCULOSKELETAL: Limited range of motion of the left shoulder. INVESTIGATIONS: White count 5.8, hemoglobin 11.4. Potassium 3.8, BUN and creatinine are normal. Troponin x3 negative. ASSESSMENT: 1. Left anterior chest wall pain, probably musculoskeletal, could be referred pain from the left shoulder with a psychosomatic component. 2. Chronic fibromyalgia. 3. Chronic osteoarthritis. 4. Depression, not otherwise specified. 5. Hyperlipidemia. 6. Rheumatoid arthritis. 7. Peripheral neuropathy. 8. Chronic sleep deprivation. 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 PLAN: Continue current medication and treatment plan. Cardiology was consulted. Care was discussed with the patient. MMODL / IJN: [id number] /
[2017-10-27] MEDS ORDERED: ATORVASTATIN 20 MG TAB PO SCH (21:00)
--- NOTE | 2017-10-27 22:28 | DS ---
DISCHARGE SUMMARY DATE OF ADMISSION: 10/26/2017. DATE OF DISCHARGE: 10/27/2017. DATE OF SERVICE: 10/27/2017 FINAL DIAGNOSES: 1. Left anterior chest wall pain, probably musculoskeletal/referred pain. 2. Chronic fibromyalgia. 3. Chronic osteoarthritis. 4. Depression, not otherwise specified. 5. Hyperlipidemia. 6. Rheumatoid arthritis. 7. Peripheral neuropathy, idiopathic. 8. Chronic sleep deprivation. 9. 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 HOSPITAL COURSE: She was just here a month ago with a similar pain, did have a stress test that was negative, presented with acute musculoskeletal-sounding pain, seen by Dr. Zamora, okayed to be discharged. Troponins were negative. The patient's left chest wall pain is rather reproducible. Patient due to go down to [facility] for a workup of a shoulder injury. EXAM: Lungs are clear. CARDIOVASCULAR: First and second sounds normal. Reproducible pain on the left chest wall. DISCHARGE MEDICATIONS: 1. Folic acid 1 mg a day. 2. Calcium 600. 3. Vitamin D3 400, 2 tablets p.o. daily. 4. Vitamin C 500 mg a day. 5. Wellbutrin XL 150 mg p.o. daily. 6. Vitamin B12 500 mcg a day. 7. Effexor XR 225 mg p.o. daily. 8. Fioricet 50/325/40, one tablet q.4 p.r.n. 9. Neurontin 300 mg p.o. t.i.d. 10.Percocet 5 one tablet every 6 hours p.r.n. 11.Zanaflex 2 mg p.o. q.12 p.r.n. 12.Lipitor 20 mg q.h.s. 13.Vitamin D3 4000 units p.o. daily. Follow up with Dr. Tripathi in 3 days. Follow up with Dr. Brown in 1 week. MMODL / IJN: [id number] /
[2017-10-28] MEDS ORDERED: FOLIC ACID 1 MG TAB PO SCH (12:00)
== END 2017-10-27 17:01 | disposition home or self-care (01) ==
LOC: EC 21:38 → 3OBS 23:00
PROVIDERS: ADMIT Hospitalist; ATTEND Hospitalist
DX: R07.89 Other chest pain (principal); G89.29 Other chronic pain; S42.202K Unspecified fracture of upper end of left humerus, subsequent encounter for fracture with nonunion; M79.7 Fibromyalgia; M19.90 Unspecified osteoarthritis, unspecified site; F32.9 Major depressive disorder, single episode, unspecified; E78.5 Hyperlipidemia, unspecified; M06.9 Rheumatoid arthritis, unspecified; G62.9 Polyneuropathy, unspecified; Z72.820 Sleep deprivation; J44.9 Chronic obstructive pulmonary disease, unspecified; M54.9 Dorsalgia, unspecified; G43.909 Migraine, unspecified, not intractable, without status migrainosus; M81.0 Age-related osteoporosis without current pathological fracture; D64.9 Anemia, unspecified; F43.10 Post-traumatic stress disorder, unspecified; F41.0 Panic disorder [episodic paroxysmal anxiety]; Z79.899 Other long term (current) drug therapy; Z88.1 Allergy status to other antibiotic agents; Z91.040 Latex allergy status; Z88.2 Allergy status to sulfonamides; Z88.8 Allergy status to other drugs, medicaments and biological substances; Z91.048 Other nonmedicinal substance allergy status; Z87.891 Personal history of nicotine dependence; Z86.19 Personal history of other infectious and parasitic diseases; Z85.3 Personal history of malignant neoplasm of breast; Z98.1 Arthrodesis status; Z86.010 Personal history of colon polyps; Z90.12 Acquired absence of left breast and nipple; X58.XXXD Exposure to other specified factors, subsequent encounter; Z82.5 Family history of asthma and other chronic lower respiratory diseases; Z82.49 Family history of ischemic heart disease and other diseases of the circulatory system
CPT/HCPCS: 99285 ×2; 96374 ×2; 96376; 36415; 93005; 83880; 80053; 82550 ×2; 82553 ×2; 83690; 83735; 84484 ×2; 85025; 85610; 85730; 71046; G0378 ×2; J2270 ×2

== ENCOUNTER → 2017-11-08 | Outpatient (CLI) | payer MEDICARE ==
[2017-11-08 13:46] VITALS: BP 173/123; PULSE 73; RESP 20
--- NOTE | 2017-11-08 14:49 | P.PAINPG ---
Subjective Progress Note Date: 11/08/17 Principal diagnosis: Chronic left shoulder pain and chronic cervical radiculopathy Supplies a 67-year-old woman with a history of cervical radiculopathy as well as left shoulder pain. She reports that she was a very good benefit from her recent cervical epidural steroid injection. She does still have intractable left shoulder pain and she is planning to undergo shoulder replacement for this in approximately 2 months. She reports the pain in her left shoulder is severe. It causes significant anxiety for her as well as hypertension. She is asking for other pain medication from now until the time she has her shoulder surgery. She is calling her surgeon's office on a daily basis trying to get her appointment moved up. Is currently scheduled for mid December. Objective - Vital Signs Vital signs: Vital Signs Temp Pulse 73 11/08/17 13:41 Resp 20 11/08/17 13:41 BP 173/123 11/08/17 13:41 Pulse Ox 93 L 11/08/17 13:41 Intake & Output 11/07/17 11/08/17 11/08/17 18:59 06:59 18:59 Weight 57.153 kg - Exam General: The patient is alert and oriented. Patient is not sedateded Patient is a question appropriately. Cardiac: Heart is regular in rate and rhythm Respiratory: Clear to auscultation. No audible wheezes. Abdomen: Soft nontender nondistended. Lower extremities: Strength is normal bilaterally. Sensation is normal bilaterally. Reflexes are preserved and symmetric bilaterally. . Assessment and Plan Assessment: Plan of Care 1. Medications: I have discussed the patient's case with her at length. She has a history of being on long-acting opiates in the past. Given the significant mechanical distortion of her left shoulder, I think it is reasonable to place her back on MS Contin for 2 months prior to her impending surgical repair. I was very direct with her that we will not continue to write his after December. She will receive 2 months of this medication and that will be at. She will follow-up in one month for reevaluation. I have reviewed the patient's MAPS report and it reveals expected results. Patient has signed an opiate agreement as well as opiate consent for treatment in our clinic. They understand the risks and benefits of opiate medications. They are aware of the potential for addiction. 2. Interventions: The patient received substantial benefit from her last cervical epidural steroid injection. She is requesting a lumbar epidural steroid injection performed once her shoulder repair has been completed. I've cautioned her on the risks and benefits of steroid use in the face of the patient with osteoporosis. I think she should space these injections out as far as possible. 3. Referrals: None 4. Testing: None 5. Psychological: The patient reports having some anxiety with regard to her left shoulder pain but reports that she has techniques including meditation to help manage this. (1) Left shoulder pain Current Visit: Yes Status: Acute Code(s): M25.512 - PAIN IN LEFT SHOULDER SNOMED Code(s): 21763096 PQRS Measure Charge Sheet Measure #130: Documentation of Current Meds in Medical Chart: Patient's medications documented in chart Measure #226: Tobacco Use: Screen & Cessation Intervention: Pt screened for tobacco use AND intervention given Measure #111: Pneumonia Vaccination: Pneumococcal vaccine NOT administered or previously given Measure #47: Advance Care Plan: Advance care planning discussed & documented, pt chose/unable to give Measure #412: Opioid Treatment Agreement: Documented signed opioid trtmnt agreemnt min once during opioid trtmnt Measure #408: Opioid Therapy Follow-up Evaluation: Patient had f/u eval minimum every 3 months during opioid therapy Measure #317: Preventitive Care & Scrn High Bld Press & F/U: Pre-hypertensive or hypertensive BP documented, pt will f/u with PCP Measure #128: Body Mass Index (BMI) Screening & Follow-up: BMI documented ABOVE normal parameters - f/u documented Measure #131: Pain Assessment & Follow-up: Pain positive & plan documented Measure #431: Unhealthy Alcohol Use Preventative Care & Scrn: Patient not identified as an unhealthy alcohol user PQRS Narrative: Smoking Status Former smoker Do You Want the Pneumonia Yes Vaccine AT THIS TIME? Narcotic Agreement Date Signed 04/13/16 Blood Pressure 173/123 Pain Intensity [Left Shoulder] 10 Scale Used Numeric (1 - 10) Hx Alcohol Use (MH) Yes: way in the past Home Medications: Ambulatory Orders Folic Acid 1 mg PO DAILY 10/17/13 Ascorbic Acid [Vitamin C] 500 mg PO DAILY 12/31/15 buPROPion XL [Wellbutrin XL] 150 mg PO DAILY 02/04/16 Cyanocobalamin [Vitamin B-12] 500 mcg PO DAILY 06/08/16 Venlafaxine HCl [Effexor XR] 225 mg PO DAILY 03/02/17 Butalb/APAP/Caff 50-325-40Mg [Fioricet 50-325-40] 1 tab PO Q4HR PRN 06/06/17 Cholecalciferol [Vitamin D3] 4,000 unit PO DAILY 10/26/17 Celecoxib [CeleBREX] 1 tab PO BID 11/08/17 Gabapentin [Neurontin] 300 mg PO TID #90 tab 11/08/17 Morphine Sulfate ER [Ms Contin 15Mg] 15 mg PO Q12HR #60 tab 11/08/17 oxyCODONE HCL/ACETAMINOPHEN [Percocet 5-325 mg] 1 tab PO Q6HR PRN #90 tab tiZANidine HCL [Zanaflex] 2 mg PO Q12H PRN #60 capsule 11/08/17 Controlled Substance Measures - Controlled Substance Measures Is patient prescribed a controlled substance at discharge?: Yes When asked, does pt state using other controlled substances?: No If prescribed controlled substance>3 days was MAPS reviewed?: Yes If Rx opioid, was Start Talking consent form obtained?: No If opioid is for acute pain is fill amount 7 days or less?: No Was information provided regarding opioid addiction?: Yes
== END | disposition home or self-care (01) ==
LOC: PNWHC3 12:53
PROVIDERS: ATTEND Pain Medicine Pain Medicine
DX: G89.29 Other chronic pain (principal); M25.512 Pain in left shoulder; Z87.891 Personal history of nicotine dependence; Z79.899 Other long term (current) drug therapy; Z79.891 Long term (current) use of opiate analgesic
CPT/HCPCS: 99211

== ENCOUNTER → 2017-11-24 | Outpatient (CLI) | payer MEDICARE ==
--- NOTE | 2017-11-24 10:30 | MR ---
EXAMINATION TYPE: MR shoulder LT wo con DATE OF EXAM: 11/24/2017 COMPARISON: X-ray dated 06/19/2017 HISTORY: R/O Infection, Pre surgery TECHNIQUE: Multiplanar, multisequence imaging of the left shoulder is performed without contrast. FINDINGS: There is marked deformity of the humerus compatible with previous fracture and nonunion. Sizable amou nt of fluid in the joint space. Abnormal signal alteration within the bone marrow is seen suggestive of nonspecific edema. This could be posttraumatic although infectious etiology not excluded. Atrophy of the rotator cuff musculature is seen. Insertion of the rotator cuff is not seen due to mar ked distortion of the humerus suspected to represent at least partial tear near the insertion. Bicipital tendon is not seen within bicipital groove may be displaced with marked increased fluid claudette rounding the tendon compatible with tendinosis. Due to this distortion of the joint space and humerus assessment of the rotator interval is limited but the biceps tendon is believed to be intact to the level of biceps anchor. There is marked narrowing of the glenohumeral joint cartilage. Degenerative labral tears are suspected. There is truncation of the distal clavicle which may be related to previous trauma and/or surgical in tervention. IMPRESSION: 1. Limited exam due to marked deformity of the humerus compatible with remote nonunion fracture. Diff use marrow edema persists throughout the humeral head and proximal diaphysis of the humerus with toña cent surrounding fluid. Although this could be posttraumatic or reactive a infectious etiology includ ing osteomyelitis is not excluded. Correlate clinically. 2. Bicipital tendinosis. 3. Muscular atrophy of the supraspinatus and to a lesser extent infraspinatus muscles. 4. Nonvisualization of the distal margin of the rotator cuff tendons. At least partial tears are susp ected. 5. Marked narrowing of the glenohumeral joint loss of cartilage compatible with arthropathy.
== END | disposition home or self-care (01) ==
LOC: RADMRIMAIN 09:43
PROVIDERS: ATTEND Orthopaedic Surgery
DX: S49.92XA Unspecified injury of left shoulder and upper arm, initial encounter (principal); M75.22 Bicipital tendinitis, left shoulder; M62.512 Muscle wasting and atrophy, not elsewhere classified, left shoulder; R93.7 Abnormal findings on diagnostic imaging of other parts of musculoskeletal system

== ENCOUNTER → 2017-11-27 | Outpatient (CLI) | payer MEDICARE ==
--- NOTE | 2017-11-27 08:21 | CT ---
EXAMINATION TYPE: CT shoulder LT wo con DATE OF EXAM: 11/27/2017 COMPARISON: 11/24/2017 MR left shoulder and CT left shoulder dated 03/12/2014 HISTORY: Left shoulder pain CT DLP: 262.10 mGycm Automated exposure control for dose reduction was used. FINDINGS: There is redemonstration of a nonunited left proximal humeral fracture with medial displacement of th e distal fracture fragment and foreshortening. Extensive degenerative changes are seen of the left hu meral head with numerous subchondral cysts. Subchondral cysts are also seen of the glenoid. There is additionally a complex joint effusion with multiple calcified fragments surrounding the left humeral head. No periosteal reaction is seen. The rotator cuff is limited on CT and described on the recent M RI dated 11/24/2017 on the left shoulder. No axillary adenopathy. Visualized portions of the left lung and left ribs are grossly unremarkable. No new fracture or dislocation is seen of the left shoulder. Again the distal clavicle is truncated likely sequela of prior fracture. This appears similar to exam of 03/12/2014. IMPRESSION: COMPLEX MODERATE JOINT EFFUSION SURROUNDING THE NONUNITED LEFT PROXIMAL HUMERAL FRACTURE WITH SUBSEQU ENT EXTENSIVE DEGENERATIVE CHANGE OF THE GLENOHUMERAL JOINT, MARKEDLY PROGRESSED FROM THE PRIOR EXAM OF 03/12/2014. CONSIDERING THE BONE MARROW EDEMA ON THE PREVIOUS MRI JOINT ASPIRATION IS RECOMMENDED T O EXCLUDE INFECTION.
== END ==
LOC: RADCTMAIN 07:37
PROVIDERS: ATTEND Orthopaedic Surgery
DX: S42.202A Unspecified fracture of upper end of left humerus, initial encounter for closed fracture (principal); X58.XXXA Exposure to other specified factors, initial encounter; M89.212 Other disorders of bone development and growth, left shoulder

== ENCOUNTER 2017-12-10 08:04 | Day surgery (SDC) | payer MEDICARE ==
[2017-12-10] MEDS ORDERED: MORPHINE SULFATE 4 MG/ML SYRINGE IVP STA (08:31)
[2017-12-10 09:11] VITALS: RESP 16; TEMP 98.2
[2017-12-10 11:20] VITALS: BP 133/89; PULSE 66
--- NOTE | 2017-12-11 10:23 | US ---
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 Jenifer ent referred for biopsy to exclude infection including P. Acnes. The procedure, risks, and alternatives, were discussed with the patient. Written informed consent obt ained. Teach back occurred. The site/side of the procedure was marked with a line with participation by the patient. Accompanying paperwork was verified for accuracy. Directed history and physical exam performed prior to the procedure. A critical pause/timeout was performed with assisting personnel just prior to the procedure with the patient's identity confirmed using 2 identifiers. Imaging guidance was utilized to select the precise skin entry point just prior to the procedure chikis g the anterior aspect of the left shoulder. Medication reconciliation performed by nursing personnel. The patient was prepped and draped in usua l sterile fashion. A total of 10 ml of 1% lidocaine was administered for local and deep anesthesia. 2 sites were targeted one along the superolateral gap and one along the anterior inferior aspect of t he gap. Cardiorespiratory monitoring performed by independent and qualified personnel. A total of 4 mg IV morphine was administered for pain control. PROCEDURE: Following standard aseptic technique and utilizing ultrasound guidance: Site 1: Superolateral nonunion gap: - Initial attempt at aspiration with an 18-gauge needle yielded 0.5 ml bloody fluid which was capped for microbiology analysis. - Subsequently, an 18-gauge Temno needle was utilized to obtain 2 core biopsies of the abnormal tissu e within the intervening nonunion gap. The samples were placed in saline for microbiology. - Following this, a 14-gauge Temno needle was used to obtain a single core specimen for cytology/hist ology. Site 2: Anteroinferior nonunion gap: - Initial attempt at aspiration with an 18-gauge needle yielded 5 mL of bloody fluid which was capped for microbiology. Wynot were removed, hemostasis was obtained, and dressing was placed. Estimated blood loss: Less than 5 ml No immediate complication. Patient's condition was unchanged post-procedure compared with their immediate pre-procedure assessme nt. IMPRESSION : Successful aspiration and core biopsy of the abnormal tissue and fluid within the nonunion gap proxim al left humerus. Samples sent for microbiology and cytology/histology. Lab was specifically directed to prepare cultures to evaluate for P. Acnes.
== END 2017-12-10 11:05 | disposition home or self-care (01) ==
LOC: RADFLMAIN 08:04
PROVIDERS: ATTEND Orthopaedic Surgery
DX: S42.202A Unspecified fracture of upper end of left humerus, initial encounter for closed fracture (principal)
CPT/HCPCS: 88305; 88311; 87070; 87205; 87075; 96374; 20206; 76942; J2270

== ENCOUNTER → 2017-12-17 | Outpatient (CLI) | payer MEDICARE ==
[2017-12-17 14:17] VITALS: BP 182/122; PULSE 81; RESP 22
--- NOTE | 2017-12-17 21:30 | P.PAINPG ---
Subjective Progress Note Date: 12/17/17 This is follow-up visit for this patient with a history of severe and chronic neck pain pain and left shoulder pain diagnosed with cervical radiculopathy, recently she is complaining of severe left shoulder pain and she's been following up with orthopedic surgery, April 2017 she had removal of the hardware from her left humerus, and she is currently diagnosed with non-union humerus fracture, a few days ago she had biopsy on her left humerus , to rule out infectious process, and she is waiting the results of the culture, and if it 's negative she will be able to have left reverse shoulder replacement, she continued to have severe intractable left shoulder pain, she is having some neck pain, she denies any numbness or tingling in the upper extremities or and lower extremities, she denies any motor or sensory deficit, she has only difficulty using her left upper extremity because of the intensity of the pain We have done interventional pain procedures cervical epidural steroid injection done 2 months ago which helped her neck pain Patients currently on MS Contin 15 mg every 12 hours, Percocet 5/325 every 6 hours, Neurontin 300 mg 3 times a day, Zanaflex 2 mg twice a day Patient denies any side effects of the medication, denies excessive drowsiness or sleepiness, denies suicidal ideation, and reports that the current pain medication is helping to control the pain and improve activity of daily living Patient denies any motor or sensory deficit , patient denies any fever or night sweats, denies any change in the bowel movements or urination Physical Examinations : 1-Constitutional : Cooperative , not in acute distress . 2-HEENT : nech ; supple , no Lymphadenopathy , no Thyromegaly , normal thyroid size . eyes : no ptosis , no icterus, no photophobia . ENT : normal of hearing , normal oropharynx , no Thrush . 3- Respiratory : Chest clear to auscultations Bilaterally , no wheezing , no Rhonchi . 4- Cardiovascular : regular rate and rhythem , S1 , S2 , no S3 , no S4. 5- Gastrointestinal : abdomen soft no tenderness , bowel sounds positive all four quadrents , no organomegally . 6- Genitourinary : Defferred . 7- neurologic: Cranial nerve II to XII intact , no focal neurological deffecit . 8- Psychatric: alert , oriented X 3 , appropriate affect , intact judgment and insight . 9- Lymphatic : no Lymphadenopathy . 10- Musculoskeltal : exams of the cervical spine = motor strength normal bilateral upper extremities Severe pain associated with active and passive movement of the left upper extremity exams of the Lumber spine =motor strength lower extremities ,thigh and legs .5/5 Assessment and plan = Cervical radiculopathy , left upper extremity and shoulder pain, and reactive to none union humerus fracture chronic and current use of high-risk medication (Opioids). The patient was counseled about risk of opioid use, psychological risk associated with opioids and was orally counseled to not overuse , divert,or sell dictations to take medications as prescribed only , and to restore medication in safe location , the patient counseled against driving while using narcotic medications , and also not to use alcohol or any illicit recreational drugs, patient's verbalized understanding that the lack of compliance will result in failure to renew narcotic prescription and possible discharge from the clinic - diagnoses, prognosis, and treatment options including but not limited to physical therapy, surgical interventions, interventional therapies , and medication management including narcotics and adjuvant medication were discussed with the patient and all the questions answered Medication management= recommend increasing his Percocet to 7.5/325 every 6 hours dispense 120 with one refill, continue MS Contin 15 mg twice a day Patient had no benefit from Celebrex and recommend to discontinue Celebrex, , patient tried NSAIDs/Motrin in the past she had side effects from it Patient reports she had no numbness or tingling and she reports most of her pain in the left upper extremity recommend to decrease the Neurontin to 300 mg twice a day , patient currently having no muscle spasm, recommend to decrease Zanaflex to 2 mg when necessary. Description blood pressure is very high and explained and discussed with the patient that the risk of hypertension and she reported that she follow up with her primary care and always she had normal blood pressure when she see her primary care Objective - Vital Signs Vital signs: Vital Signs Temp Pulse 81 12/17/17 14:11 Resp 22 12/17/17 14:11 BP 182/122 12/17/17 14:11 Pulse Ox 98 12/17/17 14:11 Intake & Output 12/17/17 12/17/17 12/18/17 06:59 18:59 06:59 Weight 58.967 kg PQRS Measure Charge Sheet Measure #130: Documentation of Current Meds in Medical Chart: Patient's medications documented in chart Measure #226: Tobacco Use: Screen & Cessation Intervention: Pt not a tobacco user Measure #111: Pneumonia Vaccination: Pneumococcal vaccine administered or previously received Measure #47: Advance Care Plan: Advance care planning discussed & documented, plan or surrogate given Measure #412: Opioid Treatment Agreement: Documented signed opioid trtmnt agreemnt min once during opioid trtmnt Measure #408: Opioid Therapy Follow-up Evaluation: Patient had f/u eval minimum every 3 months during opioid therapy Measure #317: Preventitive Care & Scrn High Bld Press & F/U: Pre-hypertensive or hypertensive BP documented, pt will f/u with PCP Measure #128: Body Mass Index (BMI) Screening & Follow-up: BMI documented within normal parameters Measure #131: Pain Assessment & Follow-up: Pain positive & plan documented, Follow-up scheduled Measure #431: Unhealthy Alcohol Use Preventative Care & Scrn: Patient not identified as an unhealthy alcohol user PQRS Narrative: Smoking Status Former smoker Do You Want the Pneumonia Vaccine Up to Date Vaccine AT THIS TIME? Narcotic Agreement Date Signed 04/13/16 Blood Pressure 182/122 Pain Intensity [Left Shoulder] 8 Scale Used Numeric (1 - 10) Hx Alcohol Use (MH) Yes: way in the past Home Medications: Ambulatory Orders Folic Acid 1 mg PO DAILY 10/17/13 Ascorbic Acid [Vitamin C] 500 mg PO DAILY 12/31/15 buPROPion XL [Wellbutrin XL] 150 mg PO DAILY 02/04/16 Cyanocobalamin [Vitamin B-12] 500 mcg PO DAILY 06/08/16 Venlafaxine HCl [Effexor XR] 225 mg PO DAILY 03/02/17 Butalb/APAP/Caff 50-325-40Mg [Fioricet 50-325-40] 1 tab PO Q4HR PRN 06/06/17 Cholecalciferol [Vitamin D3] 4,000 unit PO DAILY 10/26/17 Gabapentin [Neurontin] 300 mg PO BID #60 tab 12/17/17 Morphine Sulfate ER [Ms Contin] 15 mg PO Q12HR #60 tab 12/17/17 Morphine Sulfate ER [Ms Contin] 15 mg PO Q12HR 60 Days #60 tab 12/17/17 oxyCODONE HCL/ACETAMINOPHEN [Percocet 7.5-325 mg] 1 tab PO Q6HR PRN 30 Days # 120 tab 12/17/17 oxyCODONE HCL/ACETAMINOPHEN [Percocet 7.5-325 mg] 1 tab PO Q6HR PRN 30 Days # 120 tab 12/17/17 tiZANidine HCL [Zanaflex] 2 mg PO Q12H PRN #60 capsule 12/17/17 Controlled Substance Measures - Controlled Substance Measures Is patient prescribed a controlled substance at discharge?: Yes When asked, does pt state using other controlled substances?: Yes If prescribed controlled substance>3 days was MAPS reviewed?: Yes If Rx opioid, was Start Talking consent form obtained?: Yes If opioid is for acute pain is fill amount 7 days or less?: No Was information provided regarding opioid addiction?: Yes
== END ==
LOC: PNWHC3 13:49
PROVIDERS: ATTEND Specialist
DX: G89.29 Other chronic pain (principal); M54.2 Cervicalgia; M54.12 Radiculopathy, cervical region; M84.42 Pathological fracture, humerus; Z79.891 Long term (current) use of opiate analgesic; Z79.899 Other long term (current) drug therapy; Z79.1 Long term (current) use of non-steroidal anti-inflammatories (NSAID); Z87.891 Personal history of nicotine dependence
CPT/HCPCS: 99211

== ENCOUNTER 2018-01-31 10:08 | Observation (INO) | payer MEDICARE ==
[2018-01-31] MEDS ORDERED: MORPHINE SULFATE 4 MG/ML SYRINGE IVP STA (10:27)
[2018-01-31] MEDS ORDERED: SODIUM CHLORIDE 0.9% 1,000 ML IV STA (10:27)
--- NOTE | 2018-01-31 10:31 | ED ---
Fall HPI - General Chief Complaint: Fall Stated Complaint: Fall Time Seen by Provider: 01/31/18 10:16 Source: EMS, RN notes reviewed, old records reviewed Mode of arrival: EMS - History of Present Illness Initial Comments: This Patient is a 68 rolled female presents emergency department today after slipping and falling in her kitchen. Patient reports that she dropped a bottle of worse just her socks and slipped on this. She reports she fell back on her head and neck. She complains of some left shoulder pain. Patient has had a history of chronic left shoulder issues. Patient apparently had a fracture a few years ago and this was repaired with hardware. Patient reports that after her shoulder started to give her some more pain a few years afterwards Dr. Zee remove the hardware. 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 Patient has been to multiple patient accounts specialist and through multiple tests. She is planning to see a neuro no surgeon for nerve damage to her shoulder on Sunday. She is scheduled to have a further surgery of the shoulder after her appointment with the neurosurgeon by orthopedic doctor at this time, Dr. BRIGHT at [facility]. Patient states today that she's also been expressing chest pain with anxiety and her blood pressure being elevated. She' s been evaluated for multiple times this emergency department for chest pain. - Related Data Home Medications Medication Instructions Recorded Confirmed Folic Acid 1 mg PO DAILY 10/17/13 01/31/18 Ascorbic Acid [Vitamin C] 500 mg PO DAILY 12/31/15 01/31/18 buPROPion XL [Wellbutrin XL] 150 mg PO DAILY 02/04/16 01/31/18 Cyanocobalamin [Vitamin B-12] 500 mcg PO DAILY 06/08/16 01/31/18 Venlafaxine HCl [Effexor XR] 225 mg PO DAILY 03/02/17 01/31/18 Butalb/APAP/Caff 50-325-40Mg 1 tab PO Q4HR PRN 06/06/17 01/31/18 [Fioricet 50-325-40] Cholecalciferol [Vitamin D3] 4,000 unit PO DAILY 10/26/17 01/31/18 Previous Rx's Medication Instructions Recorded Gabapentin [Neurontin] 300 mg PO BID #60 tab 12/17/17 Morphine Sulfate ER [Ms Contin] 15 mg PO Q12HR 60 Days #60 tab 12/17/17 oxyCODONE HCL/ACETAMINOPHEN 1 tab PO Q6HR PRN 30 Days #120 tab 12/17/17 [Percocet 7.5-325 mg] tiZANidine HCL [Zanaflex] 2 mg PO Q12H PRN #60 capsule 12/17/17 Allergies Allergy/AdvReac Type Severity Reaction Status Date / Time Sulfa (Sulfonamide Allergy Severe Rash/Hives Verified 01/31/18 12:21 Antibiotics) Tetracyclines Allergy Severe Rash/Hives Verified 01/31/18 12:21 latex Allergy Rash/Hives Verified 01/31/18 12:21 lorazepam [From Ativan] AdvReac Confusion Verified 01/31/18 12:21 TIDE AND EXTRA LAUNDRY SOAP Allergy Rash/Hives Uncoded 12/17/17 14:09 Review of Systems ROS Statement: Those systems with pertinent positive or pertinent negative responses have been documented in the HPI. ROS Other: All systems not noted in ROS Statement are negative. Past Medical History Past Medical History: Cancer, COPD, Fibromyalgia, GI Bleed, Hyperlipidemia, Musculoskeletal Disorder, Osteoarthritis (OA), Rheumatoid Arthritis (RA), Syncope Additional Past Medical History / Comment(s): Hx Migraines,falls, Chronic back pain, DDD. Cervical and breast cancer." hx hep A and B". hx Anemia with blood transfusions and iron infusions,hx [id number], osteoporosis,tremors, t11 fx. left shoulder repacment sx soon History of Any Multi-Drug Resistant Organisms: None Reported Past Surgical History: Section, Hysterectomy, Orthopedic Surgery, Tonsillectomy Additional Past Surgical History / Comment(s): Cervical and Lumbar fusion; ORIF of Humerus with carlos and screws. lt breast lumpectomy 2001, 2ND lumpectomy [place] 2003 was [place]. Breast Reduction 2009.-had non healing wound afterwards then had wound closure and skin graft,Left breast mastectomy 2016, RT tympanoplasty. D&C. EXC Cataract RITU. Jarek Fundoplasty for hernia, removal of hardware from left shoulder, loop recorder 2013 Past Anesthesia/Blood Transfusion Reactions: No Reported Reaction, Family History of Problems w/ Anesthesia Additional Past Anesthesia/Blood Transfusion Reaction / Comment(s): SISTER TAKES LONGER TO AWAKEN, YEARS AGO. Past Psychological History: Anxiety, Depression, Panic Disorder, PTSD Smoking Status: Former smoker Past Alcohol Use History: None Reported Past Drug Use History: None Reported - Past Family History Father Family Medical History: Congestive Heart Failure (CHF), COPD Additional Family Medical History / Comment(s): at age 72 Mother Family Medical History: Myocardial Infarction (PA) Additional Family Medical History / Comment(s): 1987 age 57 mi General Exam - General Exam Comments Initial Comments: This is a 68-year-old female. Alert and oriented. No significant distress. Limitations: no limitations General appearance: alert, in no apparent distress Head exam: Present: atraumatic, normocephalic, normal inspection Eye exam: Present: normal appearance, PERRL, EOMI. Absent: scleral icterus, conjunctival injection, periorbital swelling ENT exam: Present: normal exam, mucous membranes moist Neck exam: Absent: normal inspection (Patient is currently in c-collar.), tenderness, meningismus, lymphadenopathy Respiratory exam: Present: normal lung sounds bilaterally. Absent: respiratory distress, wheezes, rales, rhonchi, stridor Cardiovascular Exam: Present: regular rate, normal rhythm, normal heart sounds. Absent: systolic murmur, diastolic murmur, rubs, gallop, clicks GI/Abdominal exam: Present: soft, normal bowel sounds. Absent: distended, tenderness, guarding, rebound, rigid Extremities exam: Present: normal inspection Left Shoulder Exam: Present: tenderness. Absent: normal inspection (Asians from his wrestling. Tender palpation over the proximal humerus.), swelling, abrasion, laceration, ecchymosis, deformity Upper Arm exam: Present: normal inspection, full ROM Elbow exam: Present: normal inspection, full ROM Neuro motor exam: Present: wrist extension intact, thumb opposition intact, thumb IP flexion intact, thumb adduction intact, fingers 2-5 abduction intact Vascular: Present: normal capillary refill Back exam: Present: normal inspection Neurological exam: Present: alert, oriented X3, CN II-XII intact Psychiatric exam: Present: normal affect, normal mood Skin exam: Present: warm, dry, intact, normal color. Absent: rash Course Vital Signs 01/31/18 01/31/18 01/31/18 10:09 12:17 13:11 Temperature 97.8 F Pulse Rate 87 68 68 Respiratory 16 16 18 Rate Blood Pressure 210/102 135/77 143/86 O2 Sat by Pulse 98 99 99 Oximetry - Reevaluation(s) Reevaluation #1: 01/31/18 15:29 Patient continues to complain of chest pain at this time. I informed the Patient of her continued comminuted fracture of the left shoulder. Medical Decision Making - Medical Decision Making 68-year-old female presents emergency department today with chief complaint of fall. Patient reports she slipped in her kitchen at the back of her head and neck. She was placed in a c-collar and had a CT of her brain and C-spine. This was negative and she is cleared from her c-collar. She also complained of chest pain. Her blood pressure was elevated upon arrival 210/110. She was given pain medication, she complained of pain in the left shoulder. She states been having chronic issues with her left shoulder. Her or patient accounts specialist Dr. Peters at [facility]. At this time x-rays of her shoulder show no evidence of any acute changes. She does have some chronic malunion after surgeries in your ago. There is no acute changes with shoulder this time. Patient continues complaining of some chest pain. Initial troponin is negative. The chest pain started when she arrived to the emergency department. We did repeat a second troponin. She has been admitted in the past for cardiology consult. With the fall and patient's continued complaint of chest pain the Patient for observation. - Lab Data Result diagrams: 01/31/18 10:51 01/31/18 10:51 Lab Results 01/31/18 01/31/18 01/31/18 Range/Units 10:51 10:51 10:51 WBC 3.5 L (3.8-10.6) k/uL RBC 4.50 (3.80-5.40) m/uL Hgb 13.4 (11.4-16.0) gm/dL Hct 41.3 (34.0-46.0) % MCV 91.8 (80.0-100.0) fL MCH 29.7 (25.0-35.0) pg MCHC 32.4 (31.0-37.0) g/dL RDW 13.7 (11.5-15.5) % Plt Count 249 (150-450) k/uL Neutrophils % 65 % Lymphocytes % 22 % Monocytes % 7 % Eosinophils % 2 % Basophils % 0 % Neutrophils # 2.2 (1.3-7.7) k/uL Lymphocytes # 0.8 L (1.0-4.8) k/uL Monocytes # 0.3 (0-1.0) k/uL Eosinophils # 0.1 (0-0.7) k/uL Basophils # 0.0 (0-0.2) k/uL PT (9.0-12.0) sec INR (<1.2) APTT (22.0-30.0) sec Sodium 141 (137-145) mmol/L Potassium 4.6 (3.5-5.1) mmol/L Chloride 110 H (98-107) mmol/L Carbon Dioxide 22 (22-30) mmol/L Anion Gap 9 mmol/L BUN 10 (7-17) mg/dL Creatinine 0.55 (0.52-1.04) mg/dL Est GFR (CKD-EPI)AfAm >90 (>60 ml/min/1.73 sqM) Est GFR (CKD-EPI)NonAf >90 (>60 ml/min/1.73 sqM) Glucose 100 H (74-99) mg/dL Calcium 9.9 (8.4-10.2) mg/dL Magnesium 1.8 (1.6-2.3) mg/dL Total Bilirubin 0.4 (0.2-1.3) mg/dL AST 28 (14-36) U/L ALT 25 (9-52) U/L Alkaline Phosphatase 118 (38-126) U/L Total Creatine Kinase <20 L (30-135) U/L CK-MB (CK-2) 0.2 (0.0-2.4) ng/mL CK-MB (CK-2) Rel Index Troponin I <0.012 (0.000-0.034) ng/mL Total Protein 6.5 (6.3-8.2) g/dL Albumin 3.8 (3.5-5.0) g/dL 01/31/18 01/31/18 Range/Units 10:51 14:34 WBC (3.8-10.6) k/uL RBC (3.80-5.40) m/uL Hgb (11.4-16.0) gm/dL Hct (34.0-46.0) % MCV (80.0-100.0) fL MCH (25.0-35.0) pg MCHC (31.0-37.0) g/dL RDW (11.5-15.5) % Plt Count (150-450) k/uL Neutrophils % % Lymphocytes % % Monocytes % % Eosinophils % % Basophils % % Neutrophils # (1.3-7.7) k/uL Lymphocytes # (1.0-4.8) k/uL Monocytes # (0-1.0) k/uL Eosinophils # (0-0.7) k/uL Basophils # (0-0.2) k/uL PT 10.1 (9.0-12.0) sec INR 1.0 (<1.2) APTT 22.1 (22.0-30.0) sec Sodium (137-145) mmol/L Potassium (3.5-5.1) mmol/L Chloride (98-107) mmol/L Carbon Dioxide (22-30) mmol/L Anion Gap mmol/L BUN (7-17) mg/dL Creatinine (0.52-1.04) mg/dL Est GFR (CKD-EPI)AfAm (>60 ml/min/1.73 sqM) Est GFR (CKD-EPI)NonAf (>60 ml/min/1.73 sqM) Glucose (74-99) mg/dL Calcium (8.4-10.2) mg/dL Magnesium (1.6-2.3) mg/dL Total Bilirubin (0.2-1.3) mg/dL AST (14-36) U/L ALT (9-52) U/L Alkaline Phosphatase (38-126) U/L Total Creatine Kinase (30-135) U/L CK-MB (CK-2) (0.0-2.4) ng/mL CK-MB (CK-2) Rel Index Troponin I <0.012 (0.000-0.034) ng/mL Total Protein (6.3-8.2) g/dL Albumin (3.5-5.0) g/dL 01/31/18 11:45 EKG performed at 1114 shows normal sinus rhythm bone nor minimal voltage or 2 for LVH may be normal variant. Infarct Belarusian cannot rule out anterior infarct age undetermined. Abnormal EKG noted. Ventricular rate of 60 bpm. [place] interval is 150 ms. QRS ration 82. QTQTC 3-4/408 ms. - Radiology Data Radiology results: report reviewed No evidence of acute fracture subluxation of cervical spine. Age-related atrophy changes in chronic small vessel ischemic change without acute injury kernel processing at this time. Disposition Clinical Impression: Hypertension, Chest pain, Left shoulder pain, Non-union of fracture Disposition: ADMITTED IP TO THIS [facility] Condition: Good Is patient prescribed a controlled substance at d/c from ED?: No Referrals: Easton Tripathi DO [Primary Care Provider] - 1-2 days Time of Disposition: 15:11
[2018-01-31 11:18] LABS: Partial Thromboplastin Time 22.1 sec (22.0-30.0); Prothrombin Time 10.1 sec (9.0-12.0)
[2018-01-31 11:24] LABS: ALT 25 U/L (9-52); AST 28 U/L (14-36); Albumin 3.8 g/dL (3.5-5.0); Alkaline Phosphatase 118 U/L (38-126); Anion Gap 9 mmol/L; Blood Urea Nitrogen 10 mg/dL (7-17); Calcium 9.9 mg/dL (8.4-10.2); Carbon Dioxide 22 mmol/L (22-30); Chloride 110 mmol/L (98-107); Glucose 100 mg/dL (74-99); Magnesium 1.8 mg/dL (1.6-2.3); Potassium 4.6 mmol/L (3.5-5.1); Sodium 141 mmol/L (137-145); Total Bilirubin 0.4 mg/dL (0.2-1.3); Total Protein 6.5 g/dL (6.3-8.2)
[2018-01-31 11:26] LABS: Basophils % (A) 0 %; Eosinophils # (A) 0.1 k/uL (0-0.7); Eosinophils % (A) 2 %; HCT 41.3 % (34.0-46.0); HGB 13.4 gm/dL (11.4-16.0); Lymphocytes # (A) 0.8 k/uL (1.0-4.8); Lymphocytes % (A) 22 %; MCH 29.7 pg (25.0-35.0); MCHC 32.4 g/dL (31.0-37.0); MCV 91.8 fL (80.0-100.0); Mean Platelet Volume 7.9; Monocytes # (A) 0.3 k/uL (0-1.0); Monocytes % (A) 7 %; Neutrophils # (A) 2.2 k/uL (1.3-7.7); Neutrophils % (A) 65 %; Platelet Count 249 k/uL (150-450); RDW 13.7 % (11.5-15.5); WBC 3.5 k/uL (3.8-10.6)
--- NOTE | 2018-01-31 11:38 | CT ---
EXAMINATION TYPE: CT brain emir wo con DATE OF EXAM: 01/31/2018 COMPARISON: 05/18/2017 and 03/02/2017 HISTORY: fall CT DLP: 1059.[address] of the brain was performed. The ventricles, basal cisterns and sulci overlying the cerebral convexities demonstrate mild enlargem ent. There is no evidence for intracranial hemorrhage or sulcal effacement. There is decreased attenuatio n about the periventricular white matter and deep white matter of both cerebral hemispheres, compatib le with chronic small vessel ischemia. No mass effects are seen. If symptoms persist consider MRI. Osseous calvarium is intact. IMPRESSION: 1. Age related atrophic and chronic small vessel ischemic change without acute intracranial process seen at this time. CT Cervical Spine: Unenhanced CT of the cervical spine was performed with bone and soft tissue window settings submitted . Coronal and sagittal reconstruction is obtained. There is normal alignment and prevertebral soft tissues. No evidence for acute cervical fracture . Scattered degenerative disc disease and spondylosis. Fusion changes noted at C3-C5. Mild anterior sub luxation C7 on T1 chronic in nature. Biapical scarring. IMPRESSION: 1. No evidence for acute fracture or subluxation of the cervical spine.
[2018-01-31] MEDS ORDERED: LABETALOL 5 MG/ML VIAL MDV IVP STA (11:41)
[2018-01-31 11:56] LABS: Creatine Kinase <20 U/L (30-135)
--- NOTE | 2018-01-31 12:05 | XR ---
EXAMINATION TYPE: XR chest 2V DATE OF EXAM: 01/31/2018 COMPARISON: 10/26/2017 and 06/19/2017 HISTORY: Left shoulder pain after a fall TECHNIQUE: Frontal and lateral views of the chest are obtained. FINDINGS: There is diastases of a left distal clavicular fracture, seen on the prior of 06/19/2017. Th ere is chronic nonunion of a prior left humeral head fracture as seen on the prior. No focal consolidation, pleural effusion or pneumothorax is seen. There is mild osseous demineralizat ion. Cervical fusion device is present. Cardiac loop recorder is also seen. Cardiomediastinal silhoue tte is within normal limits. Few surgical clips at the gastroesophageal junction are noted. IMPRESSION: Diastases of an old left distal navicular fracture seen on the shoulder radiographs of . 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 No acute cardiopulmonary pathology.
[2018-01-31 12:07] LABS: Creatine Kinase MB 0.2 ng/mL (0.0-2.4); Troponin I <0.012 ng/mL (0.000-0.034)
--- NOTE | 2018-01-31 12:07 | XR ---
EXAMINATION TYPE: XR shoulder complete LT DATE OF EXAM: 01/31/2018 CLINICAL HISTORY: Left shoulder pain after a fall TECHNIQUE: Three views of the left shoulder are obtained. COMPARISON: None. FINDINGS: There are chronic nonunited fractures of the left proximal humerus and distal left clavicle . No acute fracture is seen. Humeral head does articulate with the glenoid. Degenerative changes are extensive of the left glenohumeral joint. There is osseous demineralization. Cervical fusion device i s also noted. Left lung remains clear. IMPRESSION: There is no acute fracture or dislocation in the left shoulder. Osseous demineralization , chronic nonunited fractures of the distal left clavicle and left proximal humerus, and extensive de generative changes of the left glenohumeral joint.
[2018-01-31] MEDS ORDERED: KETOROLAC 30 MG/ML 1 ML VIAL IVP STA (12:32)
[2018-01-31] MEDS ORDERED: MORPHINE SULFATE 2 MG/ML SYRINGE IVP ONE (13:00)
[2018-01-31] MEDS ORDERED: NITROGLYCERIN SL TABS 0.4 MG TAB SUBLINGUAL PRN (15:31)
[2018-01-31] MEDS ORDERED: BUTALB/APAP/CAFF 50-325-40MG TAB PO PRN (18:46)
[2018-01-31 19:17] VITALS: RESP 16
[2018-01-31] MEDS: GABAPENTIN 300 MG CAP PO SCH (20:10)
[2018-01-31] MEDS: oxyCODONE-APAP 7.5-325MG 1 EACH TAB PO PRN (20:10)
[2018-01-31 20:28] LABS: Appearance,Urine Clear (Clear); Bacteria,Urine Rare /hpf; Bilirubin,Urine Negative (Negative); Blood,Urine Negative (Negative); Color,Urine Yellow; Glucose,Urine (UA) Negative (Negative); Hyaline Casts,Urine 1 /lpf (0-2); Ketones,Urine Negative (Negative); Leukocyte Esterase,Urine Trace (Negative); Mucus,Urine Occasional /hpf; Nitrite,Urine Negative (Negative); PH, Urine 5.5 (5.0-8.0); Protein,Urine Trace (Negative); RBC,Urine 6 /hpf (0-5); Specific Gravity,Urine 1.026 (1.001-1.035); Squamous Epithelial Cell,Urine 2 /hpf (0-4); Urobilinogen,Urine <2.0 mg/dL (<2.0); WBC,Urine 9 /hpf (0-5)
[2018-01-31] MEDS: MORPHINE SULFATE ER 15 MG TABLET PO SCH (20:56)
[2018-01-31] MEDS: cefTRIAXone IN SWFI 1,000 MG/10 ML SYRINGE IVP SCH (22:25)
[2018-01-31 23:14] LABS: Creatine Kinase <20 U/L (30-135)
[2018-01-31 23:27] LABS: Creatine Kinase MB <0.2 ng/mL (0.0-2.4); Troponin I <0.012 ng/mL (0.000-0.034)
[2018-02-01] MEDS ORDERED: TEMAZEPAM 15 MG CAP PO PRN (00:17)
[2018-02-01] MEDS ORDERED: ALPRAZolam 0.25 MG TAB PO PRN (00:17)
[2018-02-01] MEDS: oxyCODONE-APAP 7.5-325MG 1 EACH TAB PO PRN ×2 (03:03→11:22)
[2018-02-01 06:28] LABS: Basophils % (A) 0 %; Eosinophils # (A) 0.1 k/uL (0-0.7); Eosinophils % (A) 2 %; HCT 34.1 % (34.0-46.0); HGB 11.1 gm/dL (11.4-16.0); Lymphocytes # (A) 1.7 k/uL (1.0-4.8); Lymphocytes % (A) 42 %; MCH 30.2 pg (25.0-35.0); MCHC 32.7 g/dL (31.0-37.0); MCV 92.3 fL (80.0-100.0); Mean Platelet Volume 7.2; Monocytes # (A) 0.3 k/uL (0-1.0); Monocytes % (A) 7 %; Neutrophils # (A) 1.8 k/uL (1.3-7.7); Neutrophils % (A) 45 %; Platelet Count 212 k/uL (150-450); RDW 13.9 % (11.5-15.5); WBC 4.1 k/uL (3.8-10.6)
[2018-02-01 06:37] LABS: Anion Gap 7 mmol/L; Blood Urea Nitrogen 22 mg/dL (7-17); Calcium 9.6 mg/dL (8.4-10.2); Carbon Dioxide 27 mmol/L (22-30); Chloride 106 mmol/L (98-107); Cholesterol 148 mg/dL (<200); Glucose 100 mg/dL (74-99); HDL Cholesterol 41 mg/dL (40-60); LDL Cholesterol,Calculated 75 mg/dL (0-99); Potassium 3.8 mmol/L (3.5-5.1); Sodium 140 mmol/L (137-145); Triglycerides 158 mg/dL (<150)
--- NOTE | 2018-02-01 07:19 | HP ---
HISTORY AND PHYSICAL DATE OF SERVICE: 01/31/2018 CHIEF COMPLAINTS: Chest pain. HISTORY OF PRESENT ILLNESS: This 68-year-old woman with a past medical history of multiple medical problems including DJD, history of COPD, fibromyalgia, history of rheumatoid arthritis, history of migraines, being followed by Dr. Tripathi in the outpatient setting has a fairly complicated recent medical surgical history. The patient apparently had a problem with the left shoulder and shoulder prosthesis was removed by Orthopedic Surgery. Currently the patient evaluated by [facility] for possible reconstructive surgery. The patient also had some neurological evaluation to rule out nerve damage also. The patient had chest pain previously. Patient had stress test about 4 months ago which was found to be negative. The patient today had a slip and fall in the kitchen and complaining of left shoulder pain. The patient also had chest discomfort. Patient also complained elevation blood pressure and feeling dizzy during those times and because of multiple complex medical issues the patient came to [facility] and admitted for further evaluation and treatment. There is no history of any fever, rigors. No headache, loss of consciousness, seizures. PAST MEDICAL: COPD, fibromyalgia, GI bleed, hyperlipidemia, musculoskeletal DJD, history of migraines, section. MEDICATIONS: Prior to admission include home medications are: 1. Zanaflex 2 mg p.o. b.i.d. p.r.n. 2. Percocet 7.5 mg q.6h p.r.n. 3. Wellbutrin XR 150 mg daily. 4. Effexor XR 225 mg p.o. daily. 5. MS Contin 50 mg p.o. b.i.d. 6. Neurontin 300 mg p.o. b.i.d. 7. Folic acid 1 mg p.o. daily. 8. Vitamin B12 500 mg. 9. Vitamin D3 4000. 10.Fioricet 1 tablet q.4h p.r.n. 11.Vitamin C 500 mg p.o. daily. ALLERGIES: SULFA, TETRACYCLINE, LATEX, LORAZEPAM, TIDE. FAMILY HISTORY: CHF, COPD. SOCIAL HISTORY: Previous history of smoking. No history of current smoking or alcohol intake. REVIEW OF SYSTEMS: ENT: No diminished hearing or diminished vision. CARDIOVASCULAR: As mentioned earlier. RESPIRATORY: As mentioned earlier. GI: No nausea. : No dysuria. NERVOUS SYSTEM: No numbness or weakness. ALLERGY/IMMUNOLOGY: No history of asthma. MUSCULOSKELETAL: As mentioned earlier. HEMATOLOGY: No history of anemia. ENDOCRINE: No history of diabetes or hypothyroidism. CONSTITUTIONAL: As mentioned earlier. DERMATOLOGY: Negative. RHEUMATOLOGY: Negative. PSYCHIATRY: As mentioned earlier. PHYSICAL EXAM: Patient is alert, oriented x3. Pulse 64, blood pressure 118/70, respiration 18, temperature 97.9, pulse ox 94% on room air. HEENT: Conjunctivae normal. Oral mucosa moist. Neck is no jugular venous distention. No carotid bruit. No lymph node enlargement. CARDIOVASCULAR: Breath sounds diminished in the bases. A few scattered rhonchi and crackles. ABDOMEN: Soft, nontender. No mass palpable. LEGS: No edema, no swelling. NERVOUS SYSTEM: Higher functions as mentioned earlier. Moves all four limbs. No focal motor deficits LYMPHATICS: No lymphadenopathy in the neck, axillae, groin.. SKIN: No ulcer, rash, bleeding. EXAMINATION OF LEFT SHOULDER: Painful movements. LABS: At this time shows WBC 3.2, hemoglobin is 13.4. Troponins are negative. ASSESSMENT: 1. Chest pain possible unstable angina. 2. Possibly urinary tract infection. 3. Chronic obstructive pulmonary disease. 4. Fibromyalgia. 5. GI bleed. 6. Degenerative joint disease. 7. History of rheumatoid arthritis. 8. History of migraines. 9. History of chronic back pain. 10.History of breast cancer, cervical cancer. 11.History of hysterectomy. 12.History of degenerative joint disease. 13.History of anxiety, depression, panic disorder, posttraumatic stress disorder. 14.Remote history of substance abuse. RECOMMENDATIONS AND DISCUSSION: I recommend to continue current management and symptomatic treatment. Otherwise at this time, will monitor the patient closely. Continue with current medications. Will closely follow with Cardiology. The patient had 2 stress tests previously. We will continue to monitor. The patient also slated to have surgery at [facility] with further neurologic evaluation also. Resume the home medications. Prognosis guarded. We will discuss with Cardiology regarding further evaluation and treatment. Prognosis guarded. Copy of dictation being forwarded to Dr. Tripathi who is the primary physician. MMODL / IJN: [id number] /
[2018-02-01] MEDS ORDERED: PANTOPRAZOLE 40 MG TABLET PO SCH (07:30)
[2018-02-01] MEDS ORDERED: ASCORBIC ACID 500 MG TAB PO SCH (09:00)
[2018-02-01] MEDS ORDERED: buPROPion XL 150 MG TAB.ER.24H PO SCH (09:00)
[2018-02-01] MEDS ORDERED: CYANOCOBALAMIN 500 MCG TAB PO SCH (09:00)
[2018-02-01] MEDS ORDERED: ASPIRIN 325 MG TAB PO SCH (09:00)
[2018-02-01] MEDS ORDERED: VENLAFAXINE HCL ER 75 MG CAP PO SCH (09:00)
[2018-02-01] MEDS ORDERED: HEPARIN SODIUM,PORCINE 5,000 UNIT/ML 1 ML VIAL SQ SCH (09:00)
[2018-02-01] MEDS ORDERED: CHOLECALCIFEROL 1,000 UNIT TAB PO SCH (09:00)
[2018-02-01] MEDS: MORPHINE SULFATE ER 15 MG TABLET PO SCH (09:01)
[2018-02-01] MEDS: GABAPENTIN 300 MG CAP PO SCH (09:01)
[2018-02-01] MEDS: cefTRIAXone IN SWFI 1,000 MG/10 ML SYRINGE IVP SCH (09:02)
--- NOTE | 2018-02-01 11:40 | P.CRDCN ---
History of Present Illness Consult date: 02/01/18 Requesting physician: Rodo Dawn Reason for Consult (text): chest pain Chief complaint: fall, neck pain, left chest and shoulder discomfort History of present illness: This is a pleasant but anxious 68-year-old female patient with multiple prior admissions following a fall with complaints of pain and chest discomfort. 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 She did have previous dobutamine stress echo in September of this year that showed normal EKG and echocardiographic response to dobutamine infusion. She presented to the emergency department after slipping on some liquid that was on her kitchen floor at which time she complained of some neck and head discomfort as well as shoulder pain. She also complained of some left- sided chest discomfort that she described as a squeezing tight feeling. Upon presentation blood pressure was found to be elevated at 210/102. She apparently has spikes like this frequently where she feels chest tightness and a flushed feeling with a headache. Chest x-ray on admission showed no acute cardiopulmonary process. Laboratory values showed negative troponins 3 and a BUN of 22 with creatinine of 0.7. Upon examination, patient is resting comfortably in bed. She is complaining of feeling as if her blood pressure is elevating. She complains of headache and tight feeling in her chest. Most recent blood pressure 118/67 we will recheck this. Past Medical History Past Medical History: Cancer, COPD, Fibromyalgia, GI Bleed, Hyperlipidemia, Musculoskeletal Disorder, Osteoarthritis (OA), Rheumatoid Arthritis (RA), Syncope Additional Past Medical History / Comment(s): Hx Migraines,falls, Chronic back pain, DDD. Cervical and breast cancer." hx hep A and B". hx Anemia with blood transfusions and iron infusions,hx [id number], osteoporosis,tremors, t11 fx. left humeral fx History of Any Multi-Drug Resistant Organisms: None Reported Past Surgical History: Section, Hysterectomy, Orthopedic Surgery, Tonsillectomy Additional Past Surgical History / Comment(s): Cervical and Lumbar fusion; ORIF of Humerus with carlos and screws. lt breast lumpectomy 2001, 2ND lumpectomy [place] 2003 was [place]. Breast Reduction 2009.-had non healing wound afterwards then had wound closure and skin graft,Left breast mastectomy 2016, RT tympanoplasty. D&C. EXC Cataract RITU. Jarek Fundoplasty for hernia, removal of hardware from left shoulder, loop recorder 2013 Past Anesthesia/Blood Transfusion Reactions: No Reported Reaction, Family History of Problems w/ Anesthesia Additional Past Anesthesia/Blood Transfusion Reaction / Comment(s): SISTER TAKES LONGER TO AWAKEN, YEARS AGO. Smoking Status: Former smoker - Past Family History Father Family Medical History: Congestive Heart Failure (CHF), COPD Additional Family Medical History / Comment(s): at age 72 Mother Family Medical History: Myocardial Infarction ([place]) Additional Family Medical History / Comment(s): 1987 age 57 mi Medications and Allergies Home Medications Medication Instructions Recorded Confirmed Type Folic Acid 1 mg PO DAILY 10/17/13 01/31/18 History Ascorbic Acid [Vitamin C] 500 mg PO DAILY 12/31/15 01/31/18 History buPROPion XL [Wellbutrin XL] 150 mg PO DAILY 02/04/16 01/31/18 History Cyanocobalamin [Vitamin B-12] 500 mcg PO DAILY 06/08/16 01/31/18 History Venlafaxine HCl [Effexor XR] 225 mg PO DAILY 03/02/17 01/31/18 History Butalb/APAP/Caff 50-325-40Mg 1 tab PO Q4HR PRN 06/06/17 01/31/18 History [Fioricet 50-325-40] Cholecalciferol [Vitamin D3] 4,000 unit PO DAILY 10/26/17 01/31/18 History Gabapentin [Neurontin] 300 mg PO BID #60 tab 12/17/17 01/31/18 Rx Morphine Sulfate ER [Ms Contin] 15 mg PO Q12HR 60 Days #60 tab 12/17/17 Rx oxyCODONE HCL/ACETAMINOPHEN 1 tab PO Q6HR PRN 30 Days #120 tab 12/17/17 Rx [Percocet 7.5-325 mg] tiZANidine HCL [Zanaflex] 2 mg PO Q12H PRN #60 capsule 12/17/17 01/31/18 Rx Allergies Allergy/AdvReac Type Severity Reaction Status Date / Time Sulfa (Sulfonamide Allergy Severe Rash/Hives Verified 01/31/18 12:21 Antibiotics) Tetracyclines Allergy Severe Rash/Hives Verified 01/31/18 12:21 latex Allergy Rash/Hives Verified 01/31/18 12:21 lorazepam [From Ativan] AdvReac Confusion Verified 01/31/18 12:21 TIDE AND EXTRA LAUNDRY SOAP Allergy Rash/Hives Uncoded 12/17/17 14:09 Physical Exam Vitals: Vital Signs Temp Pulse Pulse Resp BP BP Pulse Ox 02/01/18 07:57 97.2 F L 61 16 118/67 100 02/01/18 03:55 96.9 F L 62 16 93/51 96 01/31/18 23:55 97.1 F L 64 16 118/76 97 01/31/18 19:27 97.6 F 67 16 117/62 94 L 01/31/18 18:30 98.0 F 69 16 118/66 98 01/31/18 17:54 97.5 F L 67 18 117/75 97 01/31/18 16:47 79 18 132/74 97 01/31/18 13:11 68 18 143/86 99 01/31/18 12:17 68 16 135/77 99 Intake and Output 01/31/18 02/01/18 02/01/18 22:59 06:59 14:59 Intake Total 200 10 Balance 200 10 Intake: IV 100 10 0.9 10 Sodium Chloride 0.9% 1, 100 000 ml @ 100 mls/hr IV . Q10H STA Rx#:[id number] Intake, IV Titration 100 Amount Sodium Chloride 0.9% 1, 100 000 ml @ 100 mls/hr IV . Q10H STA Rx#:[id number] Other: Weight 57.1 kg PHYSICAL EXAMINATION: HEENT: [Head is atraumatic, normocephalic. Pupils equal, round. Neck is supple. There is no elevated jugular venous pressure.] HEART EXAMINATION: [Heart sounds regular, S1 and S2 normal. No murmur or gallop heard.] CHEST EXAMINATION:[ Lungs are clear to auscultation and precussion. No chest wall tenderness is noted on palpation or with deep breathing.] ABDOMEN: [ Soft, nontender. Bowel sounds are heard. No organomegaly noted]. EXTREMITIES:[ 2+ peripheral pulses with no evidence of peripheral edema and no calf tenderness noted]. NEUROLOGIC [patient is awake, alert and oriented x3, Anxious] . Results 02/01/18 05:43 02/01/18 05:43 Cardiac Enzymes 01/31/18 01/31/18 01/31/18 Range/Units 10:51 10:51 14:34 AST 28 (14-36) U/L CK-MB (CK-2) 0.2 (0.0-2.4) ng/mL Troponin I <0.012 <0.012 (0.000-0.034) ng/mL 01/31/18 Range/Units 22:26 AST (14-36) U/L CK-MB (CK-2) <0.2 (0.0-2.4) ng/mL Troponin I <0.012 (0.000-0.034) ng/mL Coagulation 01/31/18 Range/Units 10:51 PT 10.1 (9.0-12.0) sec APTT 22.1 (22.0-30.0) sec Lipids 02/01/18 Range/Units 05:43 Triglycerides 158 H (<150) mg/dL Cholesterol 148 (<200) mg/dL HDL Cholesterol 41 (40-60) mg/dL CBC 01/31/18 02/01/18 Range/Units 10:51 05:43 WBC 3.5 L 4.1 (3.8-10.6) k/uL RBC 4.50 3.70 L (3.80-5.40) m/uL Hgb 13.4 11.1 L (11.4-16.0) gm/dL Hct 41.3 34.1 (34.0-46.0) % Plt Count 249 212 (150-450) k/uL Comprehensive Metabolic Panel 01/31/18 02/01/18 Range/Units 10:51 05:43 Sodium 141 140 (137-145) mmol/L Potassium 4.6 3.8 (3.5-5.1) mmol/L Chloride 110 H 106 (98-107) mmol/L Carbon Dioxide 22 27 (22-30) mmol/L BUN 10 22 H (7-17) mg/dL Creatinine 0.55 0.70 (0.52-1.04) mg/dL Glucose 100 H 100 H (74-99) mg/dL Calcium 9.9 9.6 (8.4-10.2) mg/dL AST 28 (14-36) U/L ALT 25 (9-52) U/L Alkaline Phosphatase 118 (38-126) U/L Total Protein 6.5 (6.3-8.2) g/dL Albumin 3.8 (3.5-5.0) g/dL Current Medications Generic Name Dose Route Start Last Admin Trade Name Freq PRN Reason Stop Dose Admin Acetaminophen/Butalbital/Caffeine 1 each 01/31/18 18:46 Fioricet 50-325-40 PO Q4HR PRN Headache Alprazolam 0.25 mg 02/01/18 00:17 Xanax PO TID PRN Anxiety Ascorbic Acid 500 mg 02/01/18 09:00 02/01/18 09:01 Vitamin C PO 500 mg DAILY FCO Administration Aspirin 325 mg 02/01/18 09:00 02/01/18 09:01 Aspirin PO 325 mg DAILY FCO Administration Bupropion HCl 150 mg 02/01/18 09:00 02/01/18 09:01 Wellbutrin Xl PO 150 mg DAILY FCO Administration Ceftriaxone Sodium 1,000 mg 01/31/18 22:00 02/01/18 09:02 Rocephin IVP 1,000 mg Q24HR FCO Administration Cholecalciferol 4,000 unit 02/01/18 09:00 02/01/18 09:01 Vitamin D3 PO 4,000 unit DAILY FCO Administration Cyanocobalamin 500 mcg 02/01/18 09:00 02/01/18 09:01 Vitamin B-12 PO 500 mcg DAILY FCO Administration Folic Acid 1 mg 02/01/18 12:00 Folic Acid PO DAILY@1200 FCO Gabapentin 300 mg 01/31/18 21:00 02/01/18 09:01 Neurontin PO 300 mg BID FCO Administration Heparin Sodium (Porcine) 5,000 unit 02/01/18 09:00 02/01/18 09:01 Heparin SQ 5,000 unit Q12HR FCO Administration Morphine Sulfate 15 mg 01/31/18 21:00 02/01/18 09:01 Ms Contin PO 15 mg Q12HR FCO Administration Nitroglycerin 0.4 mg 01/31/18 15:31 Nitrostat SUBLINGUAL Q5M PRN Chest Pain Oxycodone/Acetaminophen 1 each 01/31/18 18:46 08/17/18 03:03 Percocet 7.5-325 PO 1 each Q6HR PRN Administration Pain Pantoprazole Sodium 40 mg 02/01/18 07:30 02/01/18 06:09 Protonix PO 40 mg AC-BRKFST FCO Administration Temazepam 15 mg 02/01/18 00:17 Restoril PO HS PRN Insomnia Tizanidine HCl 2 mg 01/31/18 18:46 02/01/18 00:29 Zanaflex PO 2 mg Q12H PRN Administration Muscle Spasm Venlafaxine HCl 225 mg 02/01/18 09:00 02/01/18 09:01 Effexor Xr PO 225 mg DAILY FCO Administration Intake and Output 01/31/18 02/01/18 02/01/18 22:59 06:59 14:59 Intake Total 200 10 Balance 200 10 Intake: IV 100 10 0.9 10 Sodium Chloride 0.9% 1, 100 000 ml @ 100 mls/hr IV . Q10H STA Rx#:[id number] Intake, IV Titration 100 Amount Sodium Chloride 0.9% 1, 100 000 ml @ 100 mls/hr IV . Q10H STA Rx#:[id number] Other: Weight 57.1 kg 02/01/18 05:43 02/01/18 05:43 Assessment and Plan Assessment: #1 status post slip and fall, denies syncope #2 chronic nonunion of left humeral fracture with chronic pain #3 complaints of chest tightness, flushing and headache with elevated blood pressure on admission, negative dobutamine stress echo 4 months ago #4 anxiety #5 hyperlipidemia, on Lipitor at home Plan: From cardiology to, records are reviewed, chest discomfort likely related to spike in blood pressure. She may be discharged home today. The patient will check her blood pressure regularly at home. She will follow up with Dr. Sanchez in the office in about 2-3 weeks. She will bring her blood pressure readings to the office visit. TIMBER SURVEYOR note has been reviewed, I agree with a documented findings and plan of care. Patient was seen and examined.
[2018-02-01] MEDS ORDERED: FOLIC ACID 1 MG TAB PO SCH (12:00)
[2018-02-01 12:36] VITALS: BP 191/89; PULSE 65; TEMP 97.5
[2018-02-01] MEDS ORDERED: ONDANSETRON 4 MG/2 ML VIAL IVP PRN (13:11)
[2018-02-01] MEDS ORDERED: ONDANSETRON 4 MG TAB PO STA (13:46)
--- NOTE | 2018-02-01 14:41 | ECHOF ---
Referral Reason:chest pain MEASUREMENTS -------- HEIGHT: 162.6 cm WEIGHT: 56.7 kg BP: IVSd: 1.0 cm (0.6 - 1.1) LVIDd: 3.2 cm (3.9 - 5.3) LVPWd: 1.0 cm (0.6 - 1.1) IVSs: 1.9 cm LVIDs: 1.7 cm LVPWs: 1.3 cm Ao Diam: 3.0 cm (2.0 - 3.7) AV Cusp: 1.9 cm (1.5 - 2.6) LA Diam: 2.4 cm (2.7 - 3.8) MV EXCURSION: 18.395 mm (> 18.000) MV EF SLOPE: 92 mm/s (70 - 150) EPSS: 0.5 cm MV E Jeff: 0.96 m/s MV DecT: 277 ms MV A Jeff: 0.93 m/s MV E/A Ratio: 1.03 RAP: 5.00 mmHg RVSP: 8.99 mmHg FINDINGS -------- Sinus rhythm. This was a technically difficult study with suboptimal views. The left ventricular size is normal. Left ventricular wall thickness is normal. Overall left vent ricular systolic function is normal with, an EF between 55 - 60 %. The right ventricle is normal in size and function. The left atrium is normal in size. The right atrium is normal in size. Lumason used The aortic valve is trileaflet, and appears structurally normal. No aortic stenosis or regurgitation. There is trace mitral regurgitation. Trace tricuspid regurgitation present. The right ventricular systolic pressure, as measured by Dopp ler, is 8.99mmHg. Pulmonic valve appears structurally normal. The aortic root size is normal. The pericardium is normal. CONCLUSIONS -------- 1. Sinus rhythm. 2. This was a technically difficult study with suboptimal views. 3. The left ventricular size is normal. 4. Left ventricular wall thickness is normal. 5. Overall left ventricular systolic function is normal with, an EF between 55 - 60 %. 6. The right ventricle is normal in size and function. 7. The left atrium is normal in size. 8. The right atrium is normal in size. 9. Lumason used 10. The aortic valve is trileaflet, and appears structurally normal. No aortic stenosis or regurgitat ion. 11. There is trace mitral regurgitation. 12. Trace tricuspid regurgitation present. 13. The right ventricular systolic pressure, as measured by Doppler, is 8.99mmHg. 14. Pulmonic valve appears structurally normal. 15. The aortic root size is normal. 16. The pericardium is normal. NEWS REPORTER: Chrissie Jara RDCS
--- NOTE | 2018-02-01 22:19 | DS ---
DISCHARGE SUMMARY DATE OF SERVICE: 02/01/2018. FINAL DIAGNOSES: 1. Chest pain myocardial infarction ruled out. 2. Possible unstable angina. 3. Urinary tract infection. 4. Chronic obstructive pulmonary disease. 5. Fibromyalgia. 6. Gastroesophageal reflux disease. 7. Degenerative joint disease. 8. History of rheumatoid arthritis. 9. History of migraines. 10.Chronic back pain. 11.History of breast cancer with cervical cancer and hysterectomy. 12.History of degenerative joint disease. 13.Anxiety, depression, panic disorder, PTSD. 14.Remote history of substance abuse. DISCHARGE DISPOSITION: The patient is being discharged in stable condition with guarded prognosis. HISTORY OF PRESENT ILLNESS: This 68-year-old woman with a past medical history of multiple medical problems , was admitted with chest pain and multiple other medical issues as mentioned earlier. The patient noted to have hypotension also. Cardiovascular saw the patient and recommended outpatient followup. On exam, vital signs are stable. Cardiovascular is S1, S2. Abdomen soft. Central nervous system: No focal deficits. DISCHARGE ADVICE AND MEDICATIONS: 1. Activity limited until follow up. 2. Activity limited until follow up. 3. Followup with Dr. Tripathi in 2-3 days. 4. Follow up with Dr. Marianela Sanchez as advised. MEDICATIONS ARE: As follows: 1. Vitamin C 500 mg p.o. daily. 2. Wellbutrin XL 150 mg p.o. daily. 3. Butalbital q.4h p.r.n. 4. Vitamin D3 4000 daily. 5. Vitamin B12 500 mg p.o. daily. 6. Folic acid 1 mg. 7.effexor 220 mg p.o. daily. 8. Ceftin 500 mg p.o. b.i.d. for 5 days. 9. Neurontin 300 mg p.o. b.i.d. 10.MS Contin 50 mg p.o. b.i.d. 11.Oxycodone 1 tablet every 6 hours p.r.n. 12.Protonix 40 mg daily. 13.Zanaflex 2 mg p.o. b.i.d. Once again, the patient is being discharged in stable condition with guarded prognosis. MMODL / IJN: [id number] / MTDD
== END 2018-02-01 15:21 | disposition home or self-care (01) ==
LOC: EC 10:08 → 3OBS 15:41 → 6SEL 17:40
PROVIDERS: ADMIT Internal Medicine; ATTEND Internal Medicine
DX: R07.89 Other chest pain (principal); N39.0 Urinary tract infection, site not specified; S42.202K Unspecified fracture of upper end of left humerus, subsequent encounter for fracture with nonunion; G89.29 Other chronic pain; M54.2 Cervicalgia; M54.9 Dorsalgia, unspecified; J44.9 Chronic obstructive pulmonary disease, unspecified; M79.7 Fibromyalgia; I10 Essential (primary) hypertension; K21.9 Gastro-esophageal reflux disease without esophagitis; M19.90 Unspecified osteoarthritis, unspecified site; M06.9 Rheumatoid arthritis, unspecified; G43.909 Migraine, unspecified, not intractable, without status migrainosus; D64.9 Anemia, unspecified; F43.10 Post-traumatic stress disorder, unspecified; F41.0 Panic disorder [episodic paroxysmal anxiety]; F32.9 Major depressive disorder, single episode, unspecified; F19.11 Other psychoactive substance abuse, in remission; E78.5 Hyperlipidemia, unspecified; M81.0 Age-related osteoporosis without current pathological fracture; M25.512 Pain in left shoulder; W01.0XXA Fall on same level from slipping, tripping and stumbling without subsequent striking against object, initial encounter; Y92.000 Kitchen of unspecified non-institutional (private) residence as the place of occurrence of the external cause; I95.9 Hypotension, unspecified; F41.9 Anxiety disorder, unspecified; Z79.891 Long term (current) use of opiate analgesic; Z79.899 Other long term (current) drug therapy; Z88.1 Allergy status to other antibiotic agents; Z91.040 Latex allergy status; Z88.2 Allergy status to sulfonamides; Z88.8 Allergy status to other drugs, medicaments and biological substances; Z91.048 Other nonmedicinal substance allergy status; Z86.19 Personal history of other infectious and parasitic diseases; Z98.1 Arthrodesis status; Z90.710 Acquired absence of both cervix and uterus; Z91.81 History of falling; Z98.42 Cataract extraction status, left eye; Z98.41 Cataract extraction status, right eye; Z87.891 Personal history of nicotine dependence; Z86.010 Personal history of colon polyps; Z87.19 Personal history of other diseases of the digestive system; Z85.41 Personal history of malignant neoplasm of cervix uteri; Z85.3 Personal history of malignant neoplasm of breast; Z82.5 Family history of asthma and other chronic lower respiratory diseases; Z82.49 Family history of ischemic heart disease and other diseases of the circulatory system
CPT/HCPCS: 99285 ×2; 96374 ×2; 96375 ×4; 96376 ×3; 96361 ×8; 96372; 36415; 93005; 80061; 80053; 80048; 82550; 82553; 83735; 84484; 85025 ×2; 85610; 85730; 81001; 87086; 73030; 71046; 72125; 70450; G0378 ×3; C8929; J2270 ×2; J1644; J0696 ×2; J1885; Q9950; 93306

== ENCOUNTER → 2018-02-11 | Outpatient (CLI) | payer MEDICARE ==
[2018-02-11 13:20] VITALS: BP 114/69; PULSE 65; RESP 16
--- NOTE | 2018-02-11 14:36 | P.PAINPG ---
Subjective Progress Note Date: 02/11/18 This is follow-up visit for this patient with a history of severe and chronic neck pain pain and left shoulder pain diagnosed with cervical radiculopathy, recently she is complaining of severe left shoulder pain and she's been following up with orthopedic surgery, she is scheduled to see orthopedic surgeon for evaluation regarding collects total/, , to rule out infectious process, and she is waiting the results of the culture, and if it's negative she will be able to have left reverse shoulder replacement, she continued to have severe intractable left shoulder pain, she is having some neck pain, she denies any numbness or tingling in the upper extremities or and lower extremities, she denies any motor or sensory deficit, she has only difficulty using her left upper extremity because of the intensity of the pain , she had peripheral neuropathy started after chemotherapy We have done interventional pain procedures cervical epidural steroid injection done 2 months ago which helped her neck pain Patients currently on MS Contin 15 mg every 12 hours, Percocet 5/325 every 6 hours, Neurontin 300 mg 3 times a day, Zanaflex 2 mg twice a day Patient denies any side effects of the medication, denies excessive drowsiness or sleepiness, denies suicidal ideation, and reports that the current pain medication is helping to control the pain and improve activity of daily living Patient denies any motor or sensory deficit , patient denies any fever or night sweats, denies any change in the bowel movements or urination Physical Examinations : 1-Constitutional : Cooperative , not in acute distress . 2-HEENT : nech ; supple , no Lymphadenopathy , no Thyromegaly , normal thyroid size . eyes : no ptosis , no icterus, no photophobia . ENT : normal of hearing , normal oropharynx , no Thrush . 3- Respiratory : Chest clear to auscultations Bilaterally , no wheezing , no Rhonchi . 4- Cardiovascular : regular rate and rhythem , S1 , S2 , no S3 , no S4. 5- Gastrointestinal : abdomen soft no tenderness , bowel sounds positive all four quadrents , no organomegally . 6- Genitourinary : Defferred . 7- neurologic: Cranial nerve II to XII intact , no focal neurological deffecit . 8- Psychatric: alert , oriented X 3 , appropriate affect , intact judgment and insight . 9- Lymphatic : no Lymphadenopathy . 10- Musculoskeltal : exams of the cervical spine = motor strength normal bilateral upper extremities Severe pain associated with active and passive movement of the left upper extremity exams of the Lumber spine =motor strength lower extremities ,thigh and legs ./ Assessment and plan = Cervical radiculopathy , left upper extremity and shoulder pain, none union humerus fracture chronic and current use of high-risk medication (Opioids). The patient was counseled about risk of opioid use, psychological risk associated with opioids and was orally counseled to not overuse , divert,or sell dictations to take medications as prescribed only , and to restore medication in safe location , the patient counseled against driving while using narcotic medications , and also not to use alcohol or any illicit recreational drugs, patient's verbalized understanding that the lack of compliance will result in failure to renew narcotic prescription and possible discharge from the clinic - diagnoses, prognosis, and treatment options including but not limited to physical therapy, surgical interventions, interventional therapies , and medication management including narcotics and adjuvant medication were discussed with the patient and all the questions answered Medication management= recommend increasing his Percocet to 7.5/325 every 6 hours dispense 120 with one refill, continue MS Contin 15 mg twice a day Continue Neurontin 300 mg twice a day dispense 60 with 1 refill Patient had no benefit from Celebrex and recommend to discontinue Celebrex, , patient tried NSAIDs/Motrin in the past she had side effects from it Patient reports she had no numbness or tingling and she reports most of her pain in the left upper extremity , patient currently having no muscle spasm, currently she is using Zanaflex 2 mg once or twice a week Objective - Vital Signs Vital signs: Vital Signs Temp Pulse 65 02/11/18 13:13 Resp 16 02/11/18 13:13 BP 114/69 02/11/18 13:13 Pulse Ox 98 02/11/18 13:13 Intake & Output 02/10/18 02/11/18 02/11/18 18:59 06:59 18:59 Weight 56.699 kg PQRS Measure Charge Sheet Measure #130: Documentation of Current Meds in Medical Chart: Patient's medications documented in chart Measure #226: Tobacco Use: Screen & Cessation Intervention: Pt not a tobacco user Measure #111: Pneumonia Vaccination: Pneumococcal vaccine NOT administered or previously given Measure #47: Advance Care Plan: Advance care planning discussed & documented, pt chose/unable to give Measure #412: Opioid Treatment Agreement: Documented signed opioid trtmnt agreemnt min once during opioid trtmnt Measure #408: Opioid Therapy Follow-up Evaluation: Patient had f/u eval minimum every 3 months during opioid therapy Measure #317: Preventitive Care & Scrn High Bld Press & F/U: Normal blood pressure, f/u not required Measure #128: Body Mass Index (BMI) Screening & Follow-up: BMI documented within normal parameters Measure #131: Pain Assessment & Follow-up: Pain positive & plan documented, Follow-up scheduled Measure #431: Unhealthy Alcohol Use Preventative Care & Scrn: Patient not identified as an unhealthy alcohol user PQRS Narrative: Smoking Status Former smoker Do You Want the Pneumonia No Vaccine AT THIS TIME? Narcotic Agreement Date Signed 07/23/17 Blood Pressure 114/69 Pain Intensity [Left Shoulder] 7 Hx Alcohol Use (MH) Yes: way in the past Home Medications: Ambulatory Orders Folic Acid 1 mg PO DAILY 10/17/13 Ascorbic Acid [Vitamin C] 500 mg PO DAILY 12/31/15 buPROPion XL [Wellbutrin XL] 150 mg PO DAILY 02/04/16 Cyanocobalamin [Vitamin B-12] 500 mcg PO DAILY 06/08/16 Venlafaxine HCl [Effexor XR] 225 mg PO DAILY 03/02/17 Butalb/APAP/Caff 50-325-40Mg [Fioricet 50-325-40] 1 tab PO Q4HR PRN 06/06/17 Cholecalciferol [Vitamin D3] 4,000 unit PO DAILY 10/26/17 tiZANidine HCL [Zanaflex] 2 mg PO Q12H PRN #60 capsule 12/17/17 Cefuroxime Axetil [Ceftin] 500 mg PO BID #10 tab 02/01/18 Gabapentin [Neurontin] 300 mg PO BID #60 tab 02/11/18 Morphine Sulfate ER [Ms Contin] 15 mg PO Q12HR 30 Days #60 tab 02/11/18 Morphine Sulfate ER [Ms Contin] 15 mg PO Q12HR 60 Days #60 tab 02/11/18 Pantoprazole [Protonix] 40 mg PO AC-BRKFST PRN 02/11/18 oxyCODONE HCL/ACETAMINOPHEN [Percocet 7.5-325 mg] 1 tab PO Q6HR PRN 30 Days # 120 tab 02/11/18 oxyCODONE HCL/ACETAMINOPHEN [Percocet 7.5-325 mg] 1 tab PO Q6HR PRN 30 Days # 120 tab 02/11/18 Controlled Substance Measures - Controlled Substance Measures Is patient prescribed a controlled substance at discharge?: Yes When asked, does pt state using other controlled substances?: No If prescribed controlled substance>3 days was MAPS reviewed?: Yes If Rx opioid, was Start Talking consent form obtained?: Yes If opioid is for acute pain is fill amount 7 days or less?: No Was information provided regarding opioid addiction?: Yes
== END | disposition home or self-care (01) ==
LOC: PNWHC3 08:30
PROVIDERS: ATTEND Specialist
DX: G89.29 Other chronic pain (principal); M54.2 Cervicalgia; M54.12 Radiculopathy, cervical region; M25.512 Pain in left shoulder; G62.0 Drug-induced polyneuropathy; T45.1X5D Adverse effect of antineoplastic and immunosuppressive drugs, subsequent encounter; Z79.891 Long term (current) use of opiate analgesic; Z79.899 Other long term (current) drug therapy; Z87.891 Personal history of nicotine dependence
CPT/HCPCS: 80307; G0482; G0463; 99211

== ENCOUNTER 2018-03-17 16:10 | Inpatient (IN) | payer MEDICARE ==
[2018-03-17] MEDS ORDERED: NALOXONE 0.4 MG/ML 10 ML VIAL IVP STA (16:17)
[2018-03-17 16:29] LABS: Glucose,Whole Blood 104 mg/dL (75-99)
[2018-03-17] MEDS ORDERED: SODIUM CHLORIDE 0.9% 1,000 ML IV ONE (16:31)
[2018-03-17] MEDS ORDERED: ONDANSETRON 4 MG/2 ML VIAL IVP STA (16:32)
--- NOTE | 2018-03-17 16:41 | ED ---
Altered Mental Status HPI - General Source: patient, RN notes reviewed Mode of arrival: EMS Limitations: no limitations - History of Present Illness MD Complaint: altered mental status, decreased responsiveness <Rod Herrera - Last Filed: 03/17/18 16:51> <Robby Bey - Last Filed: 03/17/18 19:29> - General Chief Complaint: Altered Mental Status Stated Complaint: Altered Mental Time Seen by Provider: 03/17/18 16:10 - History of Present Illness Initial Comments: This is a 68-year-old female who was found unresponsive lying on the floor of her room. She was brought in by EMS he was found to be dyspneic and did require a DuoNeb and route to. He apparently was initially wheezy minimally responsive. Her pupils were midpoint per paramedics. No signs of trauma. No other information available. (Rod Herrera) - Related Data Home Medications Medication Instructions Recorded Confirmed Folic Acid 1 mg PO DAILY 10/17/13 03/17/18 Ascorbic Acid [Vitamin C] 500 mg PO DAILY 12/31/15 03/17/18 buPROPion XL [Wellbutrin XL] 150 mg PO DAILY 02/04/16 03/17/18 Cyanocobalamin [Vitamin B-12] 500 mcg PO DAILY 06/08/16 03/17/18 Venlafaxine HCl [Effexor XR] 225 mg PO DAILY 03/02/17 03/17/18 Butalb/APAP/Caff 50-325-40Mg 1 tab PO Q4HR PRN 06/06/17 03/17/18 [Fioricet 50-325-40] Cholecalciferol [Vitamin D3] 4,000 unit PO DAILY 10/26/17 03/17/18 Pantoprazole [Protonix] 40 mg PO AC-[id number] PRN 02/11/18 03/17/18 Atorvastatin [Lipitor] 40 mg PO DAILY 03/17/18 03/17/18 Lisinopril-Hctz 20-12.5 mg 1 tab PO DAILY 03/17/18 03/17/18 [Zestoretic 20-12.5] Previous Rx's Medication Instructions Recorded tiZANidine HCL [Zanaflex] 2 mg PO Q12H PRN #60 capsule 12/17/17 Gabapentin [Neurontin] 300 mg PO BID #60 tab 02/11/18 Morphine Sulfate ER [Ms Contin] 15 mg PO Q12HR 30 Days #60 tab 02/11/18 oxyCODONE HCL/ACETAMINOPHEN 1 tab PO Q6HR PRN 30 Days #120 tab 02/11/18 [Percocet 7.5-325 mg] Allergies Allergy/AdvReac Type Severity Reaction Status Date / Time Sulfa (Sulfonamide Allergy Severe Rash/Hives Verified 02/11/18 13:11 Antibiotics) Tetracyclines Allergy Severe Rash/Hives Verified 02/11/18 13:11 latex Allergy Rash/Hives Verified 02/11/18 13:11 lorazepam [From Ativan] AdvReac Confusion Verified 02/11/18 13:11 TIDE AND EXTRA LAUNDRY SOAP Allergy Rash/Hives Uncoded 02/11/18 13:11 Review of Systems ROS Other: All systems not noted in ROS Statement are negative. Limitations: ROS unobtainable due to patients medical condition <Rod Herrera - Last Filed: 03/17/18 16:51> ROS Other: All systems not noted in ROS Statement are negative. <Robby Bey - Last Filed: 03/17/18 19:29> ROS Statement: Those systems with pertinent positive or pertinent negative responses have been documented in the HPI. Past Medical History Past Medical History: Cancer, COPD, Fibromyalgia, GI Bleed, Hyperlipidemia, Musculoskeletal Disorder, Osteoarthritis (OA), Rheumatoid Arthritis (RA), Syncope Additional Past Medical History / Comment(s): Hx Migraines,falls, Chronic back pain, DDD. Cervical and breast cancer." hx hep A and B". hx Anemia with blood transfusions and iron infusions,hx [id number], osteoporosis,tremors, t11 fx. left humeral fx History of Any Multi-Drug Resistant Organisms: None Reported Past Surgical History: Section, Hysterectomy, Orthopedic Surgery, Tonsillectomy Additional Past Surgical History / Comment(s): Cervical and Lumbar fusion; ORIF of Humerus with carlos and screws. lt breast lumpectomy 2001, 2ND lumpectomy [place] 2003 was [place]. Breast Reduction 2009.-had non healing wound afterwards then had wound closure and skin graft,Left breast mastectomy 2016, RT tympanoplasty. D&C. EXC Cataract RITU. Jarek Fundoplasty for hernia, removal of hardware from left shoulder, loop recorder 2013 Past Anesthesia/Blood Transfusion Reactions: No Reported Reaction, Family History of Problems w/ Anesthesia Additional Past Anesthesia/Blood Transfusion Reaction / Comment(s): SISTER TAKES LONGER TO AWAKEN, YEARS AGO. Past Psychological History: Anxiety, Depression, Panic Disorder, PTSD Smoking Status: Former smoker Past Alcohol Use History: Abuse, Heavy Past Drug Use History: None Reported - Past Family History Father Family Medical History: Congestive Heart Failure (CHF), COPD Additional Family Medical History / Comment(s): at age 72 Mother Family Medical History: Myocardial Infarction (AL) Additional Family Medical History / Comment(s): 1987 age 57 mi <Rod Herrera Filed: 03/17/18 16:51> General Exam Limitations: no limitations General appearance: obtunded Head exam: Present: atraumatic, normocephalic, normal inspection Eye exam: Present: normal appearance, EOMI, other (Right pupil about 4 mm in diameter (about 6 mm in diameter.). Absent: scleral icterus, conjunctival injection, periorbital swelling ENT exam: Present: mucous membranes dry Neck exam: Present: normal inspection. Absent: tenderness, meningismus, lymphadenopathy Respiratory exam: Present: decreased breath sounds Cardiovascular Exam: Present: tachycardia GI/Abdominal exam: Present: soft, normal bowel sounds. Absent: distended, tenderness, guarding, rebound, rigid Extremities exam: Present: normal inspection, full ROM, normal capillary refill. Absent: tenderness, pedal edema, joint swelling, calf tenderness Back exam: Present: normal inspection Neurological exam: Present: altered, CN II-XII intact Psychiatric exam: Present: other (Unable to evaluate) Skin exam: Present: warm, dry, intact, normal color. Absent: rash <Rod Herrera Filed: 03/17/18 16:51> Limitations: altered mental status, physical limitation General appearance: alert, lethargic, obtunded, in distress Head exam: Present: atraumatic, normocephalic, normal inspection Eye exam: Present: normal appearance, PERRL, EOMI. Absent: scleral icterus, conjunctival injection, periorbital swelling ENT exam: Present: normal exam, mucous membranes dry. Absent: mucous membranes moist Neck exam: Present: normal inspection. Absent: tenderness, meningismus, lymphadenopathy Respiratory exam: Present: wheezes, decreased breath sounds, prolonged expiratory. Absent: normal lung sounds bilaterally, respiratory distress, rales , rhonchi, stridor Cardiovascular Exam: Present: normal rhythm, tachycardia, normal heart sounds. Absent: systolic murmur, diastolic murmur, rubs, gallop, clicks GI/Abdominal exam: Present: soft, normal bowel sounds. Absent: distended, tenderness, guarding, rebound, rigid Extremities exam: Present: normal inspection, full ROM, normal capillary refill. Absent: tenderness, pedal edema, joint swelling, calf tenderness Back exam: Present: normal inspection Neurological exam: Present: alert, oriented X3, CN II-XII intact Psychiatric exam: Present: normal affect, normal mood Skin exam: Present: warm, dry, intact, normal color. Absent: rash <Robby Bey - Last Filed: 03/17/18 19:29> - General Exam Comments Initial Comments: This is a well-developed female who was obtunded midpoint pupils (Rod Herrera) Course <Rod Herrera - Last Filed: 03/17/18 16:51> <Robby Bey - Last Filed: 03/17/18 19:29> Vital Signs 03/17/18 03/17/18 03/17/18 16:12 16:18 17:12 Temperature 98.2 F Pulse Rate 130 H 126 H Respiratory 12 12 20 Rate Blood Pressure 141/91 166/80 O2 Sat by Pulse 100 Oximetry 03/17/18 03/17/18 03/17/18 17:45 18:37 19:10 Temperature 99.9 F H 98.1 F Pulse Rate 126 H 123 H 119 H Respiratory 18 24 15 Rate Blood Pressure 166/81 137/68 137/74 O2 Sat by Pulse 99 100 100 Oximetry - Reevaluation(s) Reevaluation #1: 03/17/18 16:41 The patient was given 2 mg of Narcan and did seem to respond well. (Rod Herrera ) Reevaluation #2: 03/17/18 16:51 Patient more awake and alert at this time labs and imaging studies are pending. The patient's care will be endorsed to Dr. Bey at our shift change (Rod Herrera) Reevaluation #3: 03/17/18 19:27 Spoke with nephrology re patient, aware of patient status (Robby Bey) Medical Decision Making - Lab Data Result diagrams: 03/17/18 16:16 - EKG Data -: EKG Interpreted by Me (Sinus tachycardia rate of 134 NC interval 1:30 QT QRS 74 daily since QTC to) <Rod Herrera - Last Filed: 03/17/18 16:51> - Lab Data Result diagrams: 03/17/18 16:16 03/17/18 16:16 - Radiology Data Radiology results: report reviewed (CT brain negative CT abdomen pelvis negative , ultrasound renals and bladder), image reviewed <Robby Bey - Last Filed: 03/17/18 19:29> - Lab Data Lab Results 03/17/18 03/17/18 03/17/18 Range/Units 16:15 16:16 16:16 WBC (3.8-10.6) k/uL RBC (3.80-5.40) m/uL Hgb (11.4-16.0) gm/dL Hct (34.0-46.0) % MCV (80.0-100.0) fL MCH (25.0-35.0) pg MCHC (31.0-37.0) g/dL RDW (11.5-15.5) % Plt Count (150-450) k/uL Neutrophils % % Lymphocytes % % Monocytes % % Eosinophils % % Basophils % % Neutrophils # (1.3-7.7) k/uL Lymphocytes # (1.0-4.8) k/uL Monocytes # (0-1.0) k/uL Eosinophils # (0-0.7) k/uL Basophils # (0-0.2) k/uL VBG pH (7.31-7.41) VBG pCO2 (37-51) mmHg VBG HCO3 (24-28) mmol/L Sodium 137 (137-145) mmol/L Potassium 5.8 H (3.5-5.1) mmol/L Chloride 99 (98-107) mmol/L Carbon Dioxide 14 L (22-30) mmol/L Anion Gap 24 mmol/L BUN 122 H* (7-17) mg/dL Creatinine 7.17 H* (0.52-1.04) mg/dL Est GFR (CKD-EPI)AfAm 6 (>60 ml/min/1.73 sqM) Est GFR (CKD-EPI)NonAf 5 (>60 ml/min/1.73 sqM) Glucose 106 H (74-99) mg/dL POC Glucose (mg/dL) 104 H (75-99) mg/dL POC Glu Resort Keeper ID Padmini Mckeon Plasma Lactic Acid Eliseo (0.7-2.0) mmol/L Calcium 8.8 (8.4-10.2) mg/dL Total Bilirubin 0.5 (0.2-1.3) mg/dL AST 212 H (14-36) U/L ALT 62 H (9-52) U/L Alkaline Phosphatase 145 H (38-126) U/L Total Creatine Kinase 6984 H* (30-135) U/L CK-MB (CK-2) 23.7 H (0.0-2.4) ng/mL CK-MB (CK-2) Rel Index Troponin I 0.023 (0.000-0.034) ng/mL Total Protein 6.9 (6.3-8.2) g/dL Albumin 3.8 (3.5-5.0) g/dL Amylase 374 H* (30-110) U/L Lipase 24 (23-300) U/L Urine Color Urine Appearance (Clear) Urine pH (5.0-8.0) Ur Specific [place] (1.001-1.035) Urine Protein (Negative) Urine Glucose (UA) (Negative) Urine Ketones (Negative) Urine Blood (Negative) Urine Nitrite (Negative) Urine Bilirubin (Negative) Urine Urobilinogen (<2.0) mg/dL Ur Leukocyte Esterase (Negative) Urine RBC (0-5) /hpf Urine WBC (0-5) /hpf Amorphous Sediment (None) /hpf Urine HCG, Qual (Not Detectd) Salicylates <1.0 mg/dL Urine Opiates Screen (NotDetected) Ur Oxycodone Screen (NotDetected) Urine Methadone Screen (NotDetected) Ur Propoxyphene Screen (NotDetected) Acetaminophen <10.0 ug/mL Ur Barbiturates Screen (NotDetected) U Tricyclic Antidepress (NotDetected) Ur Phencyclidine Scrn (NotDetected) Ur Amphetamines Screen (NotDetected) U Methamphetamines Scrn (NotDetected) U Benzodiazepines Scrn (NotDetected) Urine Cocaine Screen (NotDetected) U Marijuana (THC) Screen (NotDetected) Serum Alcohol <10 mg/dL 03/17/18 03/17/18 03/17/18 Range/Units 16:16 16:16 16:16 WBC 8.5 (3.8-10.6) k/uL RBC 4.08 (3.80-5.40) m/uL Hgb 12.7 (11.4-16.0) gm/dL Hct 39.7 (34.0-46.0) % MCV 97.4 D (80.0-100.0) fL MCH 31.3 (25.0-35.0) pg MCHC 32.1 (31.0-37.0) g/dL RDW 14.1 (11.5-15.5) % Plt Count 278 (150-450) k/uL Neutrophils % 88 % Lymphocytes % 5 % Monocytes % 4 % Eosinophils % 1 % Basophils % 0 % Neutrophils # 7.4 (1.3-7.7) k/uL Lymphocytes # 0.4 L (1.0-4.8) k/uL Monocytes # 0.4 (0-1.0) k/uL Eosinophils # 0.1 (0-0.7) k/uL Basophils # 0.0 (0-0.2) k/uL VBG pH 7.15 L* (7.31-7.41) VBG pCO2 46 (37-51) mmHg VBG HCO3 15 L (24-28) mmol/L Sodium (137-145) mmol/L Potassium (3.5-5.1) mmol/L Chloride (98-107) mmol/L Carbon Dioxide (22-30) mmol/L Anion Gap mmol/L BUN (7-17) mg/dL Creatinine (0.52-1.04) mg/dL Est GFR (CKD-EPI)AfAm (>60 ml/min/1.73 sqM) Est GFR (CKD-EPI)NonAf (>60 ml/min/1.73 sqM) Glucose (74-99) mg/dL POC Glucose (mg/dL) (75-99) mg/dL POC Glu Resort Keeper ID Plasma Lactic Acid Eliseo 1.5 (0.7-2.0) mmol/L Calcium (8.4-10.2) mg/dL Total Bilirubin (0.2-1.3) mg/dL AST (14-36) U/L ALT (9-52) U/L Alkaline Phosphatase (38-126) U/L Total Creatine Kinase (30-135) U/L CK-MB (CK-2) (0.0-2.4) ng/mL CK-MB (CK-2) Rel Index Troponin I (0.000-0.034) ng/mL Total Protein (6.3-8.2) g/dL Albumin (3.5-5.0) g/dL Amylase (30-110) U/L Lipase (23-300) U/L Urine Color Urine Appearance (Clear) Urine pH (5.0-8.0) Ur Specific [place] (1.001-1.035) Urine Protein (Negative) Urine Glucose (UA) (Negative) Urine Ketones (Negative) Urine Blood (Negative) Urine Nitrite (Negative) Urine Bilirubin (Negative) Urine Urobilinogen (<2.0) mg/dL Ur Leukocyte Esterase (Negative) Urine RBC (0-5) /hpf Urine WBC (0-5) /hpf Amorphous Sediment (None) /hpf Urine HCG, Qual (Not Detectd) Salicylates mg/dL Urine Opiates Screen (NotDetected) Ur Oxycodone Screen (NotDetected) Urine Methadone Screen (NotDetected) Ur Propoxyphene Screen (NotDetected) Acetaminophen ug/mL Ur Barbiturates Screen (NotDetected) U Tricyclic Antidepress (NotDetected) Ur Phencyclidine Scrn (NotDetected) Ur Amphetamines Screen (NotDetected) U Methamphetamines Scrn (NotDetected) U Benzodiazepines Scrn (NotDetected) Urine Cocaine Screen (NotDetected) U Marijuana (THC) Screen (NotDetected) Serum Alcohol mg/dL 03/17/18 03/17/18 Range/Units 17:04 17:04 WBC (3.8-10.6) k/uL RBC (3.80-5.40) m/uL Hgb (11.4-16.0) gm/dL Hct (34.0-46.0) % MCV (80.0-100.0) fL MCH (25.0-35.0) pg MCHC (31.0-37.0) g/dL RDW (11.5-15.5) % Plt Count (150-450) k/uL Neutrophils % % Lymphocytes % % Monocytes % % Eosinophils % % Basophils % % Neutrophils # (1.3-7.7) k/uL Lymphocytes # (1.0-4.8) k/uL Monocytes # (0-1.0) k/uL Eosinophils # (0-0.7) k/uL Basophils # (0-0.2) k/uL VBG pH (7.31-7.41) VBG pCO2 (37-51) mmHg VBG HCO3 (24-28) mmol/L Sodium (137-145) mmol/L Potassium (3.5-5.1) mmol/L Chloride (98-107) mmol/L Carbon Dioxide (22-30) mmol/L Anion Gap mmol/L BUN (7-17) mg/dL Creatinine (0.52-1.04) mg/dL Est GFR (CKD-EPI)AfAm (>60 ml/min/1.73 sqM) Est GFR (CKD-EPI)NonAf (>60 ml/min/1.73 sqM) Glucose (74-99) mg/dL POC Glucose (mg/dL) (75-99) mg/dL POC Glu Resort Keeper ID Plasma Lactic Acid Eliseo (0.7-2.0) mmol/L Calcium (8.4-10.2) mg/dL Total Bilirubin (0.2-1.3) mg/dL AST (14-36) U/L ALT (9-52) U/L Alkaline Phosphatase (38-126) U/L Total Creatine Kinase (30-135) U/L CK-MB (CK-2) (0.0-2.4) ng/mL CK-MB (CK-2) Rel Index Troponin I (0.000-0.034) ng/mL Total Protein (6.3-8.2) g/dL Albumin (3.5-5.0) g/dL Amylase (30-110) U/L Lipase (23-300) U/L Urine Color Yellow Urine Appearance Cloudy H (Clear) Urine pH 5.0 (5.0-8.0) Ur Specific [place] 1.020 (1.001-1.035) Urine Protein 1+ H (Negative) Urine Glucose (UA) Negative (Negative) Urine Ketones Negative (Negative) Urine Blood Moderate H (Negative) Urine Nitrite Negative (Negative) Urine Bilirubin 1+ H (Negative) Urine Urobilinogen <2.0 (<2.0) mg/dL Ur Leukocyte Esterase Negative (Negative) Urine RBC 3 (0-5) /hpf Urine WBC 3 (0-5) /hpf Amorphous Sediment Rare H (None) /hpf Urine HCG, Qual Not Detected (Not Detectd) Salicylates mg/dL Urine Opiates Screen Detected H (NotDetected) Ur Oxycodone Screen Detected H (NotDetected) Urine Methadone Screen Not Detected (NotDetected) Ur Propoxyphene Screen Not Detected (NotDetected) Acetaminophen ug/mL Ur Barbiturates Screen Not Detected (NotDetected) U Tricyclic Antidepress Not Detected (NotDetected) Ur Phencyclidine Scrn Not Detected (NotDetected) Ur Amphetamines Screen Not Detected (NotDetected) U Methamphetamines Scrn Not Detected (NotDetected) U Benzodiazepines Scrn Not Detected (NotDetected) Urine Cocaine Screen Not Detected (NotDetected) U Marijuana (THC) Screen Not Detected (NotDetected) Serum Alcohol mg/dL Critical Care Time Critical Care Time: Yes Total Critical Care Time: 31 <Robby Bey - Last Filed: 03/17/18 19:29> Disposition <Rod Herrera - Last Filed: 03/17/18 16:51> Is patient prescribed a controlled substance at d/c from ED?: No <Robby Bey - Last Filed: 03/17/18 19:29> Clinical Impression: Altered mental status, Delirium due to general medical condition, Prescription drug abuse, Dehydration, Rhabdomyolysis, Uremia, Acute renal failure Disposition: ADMITTED IP TO THIS [facility] Condition: Critical Referrals: Easton Tripathi DO [Primary Care Provider] - 1-2 days
[2018-03-17 16:45] LABS: Basophils % (A) 0 %; Eosinophils # (A) 0.1 k/uL (0-0.7); Eosinophils % (A) 1 %; HCT 39.7 % (34.0-46.0); HGB 12.7 gm/dL (11.4-16.0); Lymphocytes # (A) 0.4 k/uL (1.0-4.8); Lymphocytes % (A) 5 %; MCH 31.3 pg (25.0-35.0); MCHC 32.1 g/dL (31.0-37.0); Mean Platelet Volume 7.3; Monocytes # (A) 0.4 k/uL (0-1.0); Monocytes % (A) 4 %; Neutrophils # (A) 7.4 k/uL (1.3-7.7); Neutrophils % (A) 88 %; Platelet Count 278 k/uL (150-450); RBC 4.08 m/uL (3.80-5.40); RDW 14.1 % (11.5-15.5); WBC 8.5 k/uL (3.8-10.6)
[2018-03-17 16:47] LABS: MCV 97.4 fL (80.0-100.0)
--- NOTE | 2018-03-17 16:56 | XR ---
EXAMINATION TYPE: XR chest 2V DATE OF EXAM: 03/17/2018 COMPARISON: 01/31/2018 HISTORY: Short of breath TECHNIQUE: Frontal and lateral views of the chest are obtained. FINDINGS: Heart and mediastinum are normal. There is probably infiltrate in the left lower lobe behi nd the heart that is new compared to old exam. There are chest leads. 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 IMPRESSION: Infiltrate in the left lower lobe compared to last exam.
[2018-03-17 16:57] LABS: ALT 62 U/L (9-52); AST 212 U/L (14-36); Acetaminophen <10.0 ug/mL; Alcohol <10 mg/dL; Alkaline Phosphatase 145 U/L (38-126); Calcium 8.8 mg/dL (8.4-10.2); Chloride 99 mmol/L (98-107); Glucose 106 mg/dL (74-99); Lipase 24 U/L (23-300); Potassium 5.8 mmol/L (3.5-5.1); Salicylate <1.0 mg/dL; Sodium 137 mmol/L (137-145); Total Bilirubin 0.5 mg/dL (0.2-1.3); Total Protein 6.9 g/dL (6.3-8.2)
[2018-03-17 16:58] LABS: Albumin 3.8 g/dL (3.5-5.0); Anion Gap 24 mmol/L; Carbon Dioxide 14 mmol/L (22-30)
[2018-03-17 17:07] LABS: Blood Urea Nitrogen 122 mg/dL (7-17)
[2018-03-17 17:08] LABS: Amylase 374 U/L (30-110)
--- NOTE | 2018-03-17 17:11 | CT ---
EXAMINATION TYPE: CT brain wo con DATE OF EXAM: 03/17/2018 COMPARISON: 01/31/2018 HISTORY: CONFUSION CT DLP: 822.7 mGycm Automated exposure control for dose reduction was used. FINDINGS: Ventricles have normal size. There is no mass effect nor midline shift. There is no sign of intracran ial hemorrhage. The calvarium is intact. IMPRESSION: NEGATIVE CT SCAN OF THE BRAIN. NO CHANGE.
[2018-03-17 17:13] LABS: Creatine Kinase MB 23.7 ng/mL (0.0-2.4); Troponin I 0.023 ng/mL (0.000-0.034)
[2018-03-17 17:41] LABS: Amorphous Sediment,Urine Rare /hpf; Appearance,Urine Cloudy (Clear); Bilirubin,Urine 1+ (Negative); Blood,Urine Moderate (Negative); Color,Urine Yellow; Glucose,Urine (UA) Negative (Negative); Ketones,Urine Negative (Negative); Leukocyte Esterase,Urine Negative (Negative); Nitrite,Urine Negative (Negative); Protein,Urine 1+ (Negative); RBC,Urine 3 /hpf (0-5); Urobilinogen,Urine <2.0 mg/dL (<2.0); WBC,Urine 3 /hpf (0-5)
[2018-03-17] MEDS ORDERED: SODIUM CHLORIDE 0.9% 500 ML IV STA (17:41)
[2018-03-17] MEDS ORDERED: SODIUM CHLORIDE 0.9% 1,000 ML IV STA ×2 (17:41)
[2018-03-17 17:48] LABS: Amphetamine Screen,Urine Not Detected (NotDetected); Barbiturate Screen,Urine Not Detected (NotDetected); Benzodiazepines Screen,Urine Not Detected (NotDetected); Cocaine Screen,Urine Not Detected (NotDetected); Methadone Screen, Urine Not Detected (NotDetected); Opiate Screen,Urine Detected (NotDetected); Oxycodone Screen, Urine Detected (NotDetected); Phencyclidine Screen,Urine Not Detected (NotDetected); Tricyclic Antidepressant,Urine Not Detected (NotDetected); Urn Cannabinoid Scrn Not Detected (NotDetected)
[2018-03-17] MEDS ORDERED: SODIUM BICARB 8.4% 50 ML SYR (1 MEQ/ML) IV ONE ×2 (17:55→19:29)
[2018-03-17 18:10] LABS: VBG PH 7.15 (7.31-7.41)
--- NOTE | 2018-03-17 18:33 | CT ---
EXAMINATION TYPE: CT abdomen pelvis wo con DATE OF EXAM: 03/17/2018 COMPARISON: 06/26/2014 HISTORY: ABNORMAL BLOOD WORK CT DLP: 454 mGycm Automated exposure control for dose reduction was used. TECHNIQUE: Helical acquisition of images was performed from the lung bases through the pelvis. FINDINGS: There is a 4 cm masslike area of consolidation in the left paraspinal left lower lobe. There is no pl eural effusion. Liver shows no focal defect. Spleen appears normal. There is no pancreatic mass. Gall bladder appears normal. There is no adrenal mass. Kidneys show normal size and contour. There is no hydronephrosis. Ureters a re not dilated. There is no retroperitoneal adenopathy. Abdominal aorta is atheromatous. There is no mesenteric adenopathy. There are multiple loops of small bowel in the lower abdomen with wall thicken ing up to 1 cm. The appendix appears normal. There is no evidence of free air. There is no ascites. B ladder distends smoothly. There is posterior fusion surgery in the lower lumbar spine. There is 30% wedging of T11 vertebra. Th ere is no focal bone destruction. Terminal ileum appears normal at the ileocecal valve. IMPRESSION: THERE ARE LOOPS OF DISTAL ILEUM PROXIMAL TO THE ILEOCECAL VALVE THAT SHOW WALL THICKENING AND CONSIST ENT WITH INFLAMMATORY PROCESS. THIS APPEARS NEW COMPARED TO OLD CT SCAN. THERE IS PNEUMONIC CONSOLIDATION IN THE PARASPINAL LEFT LOWER LOBE AND FOLLOW-UP IS RECOMMENDED TO OW CLEARING. OLD T11 COMPRESSION FRACTURE STABLE COMPARED TO OLD EXAM..
--- NOTE | 2018-03-17 19:25 | US ---
EXAMINATION TYPE: US renals and bladder DATE OF EXAM: 03/17/2018 COMPARISON: NONE CLINICAL HISTORY: Pain. unresponsive ER stat portable exam EXAM MEASUREMENTS: Right Kidney: 10.9 x 4.4 x 6.2 cm Left Kidney: 10.6 x 5.3 x 5.4 cm Right Kidney: somewhat echogenic, otherwise wnl Left Kidney: somewhat echogenic, otherwise wnl Bladder: unable to visualize, pt has a llamas cath in place There is no evidence for hydronephrosis at this point in time. No nephrolithiasis is seen. No mao s are identified. The urinary bladder is anechoic. Bilateral ureteral jets are seen. IMPRESSION: Bladder is empty. Patient has Llamas catheter. No evidence of renal stone or obstruction. No renal atr ophy. There is suggestion of some gallbladder wall thickening which should be correlated clinically.
[2018-03-17] MEDS ORDERED: NALOXONE 0.4 MG/ML 1 ML VIAL IV PRN (19:30)
[2018-03-17] MEDS: IPRATROPIUM-ALBUTEROL 3 ML NEB INHALATION SCH (20:05)
[2018-03-17 20:36] LABS: Glucose,Whole Blood 112 mg/dL (75-99)
[2018-03-17] MEDS: SODIUM CHLORIDE 0.9% 1,000 ML IV SCH (21:30)
[2018-03-18 04:34] LABS: Basophils % (A) 0 %; Eosinophils % (A) 0 %; HCT 31.4 % (34.0-46.0); Lymphocytes # (A) 0.3 k/uL (1.0-4.8); Lymphocytes % (A) 5 %; MCH 30.5 pg (25.0-35.0); MCHC 31.7 g/dL (31.0-37.0); MCV 96.3 fL (80.0-100.0); Mean Platelet Volume 7.4; Monocytes # (A) 0.4 k/uL (0-1.0); Monocytes % (A) 5 %; Neutrophils # (A) 6.4 k/uL (1.3-7.7); Neutrophils % (A) 88 %; Platelet Count 223 k/uL (150-450); RBC 3.26 m/uL (3.80-5.40); RDW 14.2 % (11.5-15.5); WBC 7.2 k/uL (3.8-10.6)
[2018-03-18 04:35] LABS: Albumin 2.8 g/dL (3.5-5.0); Calcium 7.7 mg/dL (8.4-10.2); Phosphorus 7.1 mg/dL (2.5-4.5); Potassium 4.3 mmol/L (3.5-5.1); Total Bilirubin 0.4 mg/dL (0.2-1.3); Total Protein 5.4 g/dL (6.3-8.2)
[2018-03-18 04:49] LABS: HGB 9.9 gm/dL (11.4-16.0)
[2018-03-18] MEDS: SODIUM CHLORIDE 0.9% 1,000 ML IV SCH ×3 (07:01→17:34)
[2018-03-18] MEDS: IPRATROPIUM-ALBUTEROL 3 ML NEB INHALATION SCH ×4 (08:43→20:28)
[2018-03-18] MEDS ORDERED: PANTOPRAZOLE 40 MG/10 ML VIAL IV SCH (09:00)
[2018-03-18] MEDS: ENOXAPARIN 40 MG/0.4 ML SYRINGE SQ SCH (09:18)
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
[2018-03-18 12:00] LABS: Glucose,Whole Blood 114 mg/dL (75-99)
[2018-03-18] MEDS: PIPERACILLIN-TAZOBACTAM 3.375 GM in DEXTROSE/WATER 1 50ML.BAG IVPB SCH ×2 (12:19→19:52)
[2018-03-18] MEDS ORDERED: amLODIPine 5 MG TAB PO SCH (15:00)
[2018-03-18] MEDS ORDERED: cloNIDine 0.1 MG/24HR PATCH TRANSDERM SCH (17:00)
[2018-03-18] MEDS: LACTATED RINGERS 1,000 ML IV SCH ×2 (17:13→23:55)
[2018-03-18 18:05] LABS: Glucose,Whole Blood 142 mg/dL (75-99)
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
[2018-03-18 18:57] LABS: Hemoglobin A1C 5.5 % (4.0-6.0)
--- NOTE | 2018-03-18 19:07 | CONS ---
CONSULTATION REASON FOR CONSULT: Renal failure. HISTORY OF PRESENT ILLNESS: Patient is a 68-year-old female who was admitted to the hospital as she was found unresponsive in her room at home. I am not sure who called the paramedics. The patient was found to be in rhabdomyolysis with a CK level of 6060. She also had renal failure with a creatinine of 7.1 yesterday. Previous creatinine was 0.7 mg/dL on 02/01/2018. The patient's blood pressure has not been low. It appears that she has had issues with polypharmacy and possibly taking more medications than prescribed. Drug screen was positive for opiates and oxycodone. Toxicology screen was negative for acetaminophen, salicylates and alcohol. The patient was on ALICIA inhibitors and diuretics at home prior to admission. PAST MEDICAL HISTORY: Hypertension, dyslipidemia, gastroesophageal reflux disease, vitamin D deficiency, COPD, fibromyalgia, history of GI bleed, rheumatoid arthritis, syncope, history of cervical and breast cancer, osteoporosis. PAST SURGICAL HISTORY: ORIF of the humerus, cervical and lumbar fusion, left breast lumpectomy, history of breast reduction, history of nonhealing wounds, left mastectomy, tympanoplasty, fundoplasty for hernia, removal of hardware from left shoulder, D and C, bilateral cataract surgery. SOCIAL HISTORY: Patient is a former smoker. She does have a history of heavy alcohol abuse. MEDICATIONS: Prior to admission included: 1. Zestoretic. 2. Lipitor. 3. Protonix. 4. Vitamin D3. 5. Effexor. 6. Wellbutrin. 7. Vitamin C. 8. Vitamin B12. 9. Neurontin. 10.Zanaflex. 11.MS Contin. 12.Percocet. ALLERGIES: TETRACYCLINE, LATEX, SULFA, ATIVAN. REVIEW OF SYSTEMS: Negative for fever, chills, bleeding. There is no diarrhea. Mentation has improved. No cough or chest pains currently. PHYSICAL EXAMINATION: Patient is currently comfortable. She is awake. She is not in any acute distress. She is answering simple questions. Blood pressure this morning was 172/86, heart rate of 114 per minute, she is afebrile. Examination of the heart S1, S2. Examination lungs bilateral breath sounds are heard. Abdomen is soft, nontender. Examination lower extremities shows no evidence of edema. ANESTHESIOLOGIST exam shows no gross deficits. LABS: Sodium 145, potassium 4.3, chloride 112, CO2 is 18, BUN 107, serum creatinine 3.53. The CK was 6060, now down to 4596. Albumin 2.8. UA shows WBCs 3, protein 1+, moderate blood. Hemoglobin was 9.9. ASSESSMENT: 1. Acute kidney injury, acute tubular necrosis, currently nonoliguric and improving. Continue with IV fluids. I will decrease the rate to about a 60 to 70 mL an hour. If the CK level is rising, I will switch the IV fluids to IV bicarb. 2. Metabolic acidosis, non-anion gap, secondary to renal failure, currently improving. 3. Hypertension, uncontrolled. Will continue to hold off on the ALICIA inhibitors, however, I will add calcium channel blockers and decrease the saline. 4. History of gastroesophageal reflux disease and hiatal hernia status post Jarek fundoplication. 5. Pyuria. Urine culture is currently pending. Patient is maintained on empiric antibiotics for urinary tract infection. PLAN: Continue IV fluids at decreased rate. Start Norvasc. Follow up on the CK levels. Repeat labs in a.m. Thank you for this consultation. We will continue to follow the patient with you during her hospitalization. MMODL / IJN: [id number] /
[2018-03-19] MEDS: PIPERACILLIN-TAZOBACTAM 3.375 GM in DEXTROSE/WATER 1 50ML.BAG IVPB SCH ×3 (04:16→20:52)
[2018-03-19 04:22] LABS: Basophils % (A) 0 %; Eosinophils % (A) 0 %; HCT 32.2 % (34.0-46.0); HGB 10.1 gm/dL (11.4-16.0); Lymphocytes # (A) 0.2 k/uL (1.0-4.8); Lymphocytes % (A) 5 %; MCH 30.2 pg (25.0-35.0); MCHC 31.3 g/dL (31.0-37.0); MCV 96.6 fL (80.0-100.0); Monocytes # (A) 0.3 k/uL (0-1.0); Monocytes % (A) 6 %; Neutrophils % (A) 88 %; Platelet Count 176 k/uL (150-450); RBC 3.33 m/uL (3.80-5.40); RDW 14.2 % (11.5-15.5); WBC 4.6 k/uL (3.8-10.6)
[2018-03-19 04:42] LABS: Calcium 8.9 mg/dL (8.4-10.2); Magnesium 1.9 mg/dL (1.6-2.3); Phosphorus 3.4 mg/dL (2.5-4.5); Potassium 4.1 mmol/L (3.5-5.1)
[2018-03-19] MEDS ORDERED: PANTOPRAZOLE 40 MG TABLET PO SCH (09:00)
[2018-03-19] MEDS: IPRATROPIUM-ALBUTEROL 3 ML NEB INHALATION SCH ×4 (09:14→21:07)
[2018-03-19] MEDS: LACTATED RINGERS 1,000 ML IV SCH ×2 (09:19→14:47)
[2018-03-19] MEDS: PANTOPRAZOLE 40 MG/10 ML VIAL IVP SCH (09:19)
[2018-03-19] MEDS: ENOXAPARIN 40 MG/0.4 ML SYRINGE SQ SCH (09:19)
[2018-03-19] MEDS ORDERED: SODIUM CHLORIDE 0.45% 1,000 ML IV SCH (11:45)
--- NOTE | 2018-03-19 12:00 | P.PN ---
Subjective Progress Note Date: 03/19/18 Principal diagnosis: Altered mental status 68-year-old female patient, presented to the hospital because of altered mentation. The patient was found unresponsive lying on the floor and the exact time for her being unresponsive in that situation is not known. Apparently she was found and she was brought into the hospital via EMS. Upon arrival the patient was found to be in acute rhabdomyolysis, acute kidney injury, metabolic acidosis, with a CPK level of 6984 and a creatinine of 7.1. She was acidotic and based on the venous blood gas the pH was 7.15. She was given bicarb pushes. She was placed on IV fluids and she received a liter of bolus in the emergency department currently she is receiving a normal saline at the rate of 150 mL an hour. Follow-up creatinine is down to 3.5. CAT scan of the abdomen and pelvis was done and showed a patchy infiltration of the left lung base. Otherwise the rest of the intra-abdominal findings showed some thickening at the ileal cecal area. Ultrasound the kidneys was within normal limits. CAT scan of the brain was again negative for any acute findings. The patient had a urinalysis was positive for opiates and oxycodone. The patient takes MS Contin at home and Percocet. At a time of my evaluation this morning, she was still lethargic. She would follow simple commands such as moving her toes and fingers. She is profoundly weak and lethargic and she is unable to hold a conversation yet. She opens her eyes spontaneously and looks around and she may not and say yes and no. No agitation. No seizure activity was noted. She was given a dose of Narcan in the emergency department with limited of an improvement. The patient was seen again today 03/19/2018 in follow-up in the intensive care unit. She is much more awake and alert today as compared to yesterday. She denies any shortness of breath, cough or congestion. She is maintaining O2 saturations up to 100% on room air. She's been afebrile. Hemodynamically stable. White count 4.6. Hemoglobin 10.1. Sodium 148. Bicarb 21. Creatinine 1.17. Creatinine kinase 2352. Adequate urine output. She is continued on lactated Ringer's at 150 MLS per hour. She remains on Zosyn. Bronchodilators. Objective - Vital Signs Vital signs: Vital Signs Temp 98.6 F 10/02/18 10:30 Pulse 88 03/19/18 11:00 Resp 16 03/19/18 11:00 BP 146/90 03/19/18 11:00 Pulse Ox 100 03/19/18 11:00 Intake & Output 03/18/18 03/19/18 03/19/18 18:59 06:59 18:59 Intake Total 1920 2050.0 600 Output Total 1470 1230 610 Balance 450 820.0 -10 Weight 56.7 kg 57.7 kg 57.7 kg Intake: IV 1570 Sodium Chloride 0.9% 1, 1570 000 ml @ 70 mls/hr IV . [id number] [facility] Rx#:[id number] Intake, IV Titration 350 2050.0 600 Amount Lactated Ringers 1,000 ml 300 1950 600 @ 150 mls/hr IV .Q6H40M [facility] Rx#:[id number] Piperacillin-Tazobactam 3 50 100.0 .375 gm In Dextrose/Water 1 50ml.bag @ 12.5 mls/hr IVPB Q8H [facility] Rx#: [id number] Oral 0 0 Output: Urine 1470 1230 610 Other: Voiding Method Indwelling Catheter Indwelling Catheter Indwelling Catheter - Exam Gen. appearance the patient is awake and alert in no acute distress. Head exam was generally normal. There was no scleral icterus or corneal arcus. Mucous membranes were moist. Neck was supple and without jugular venous distension, thyromegaly, or carotid bruits. Carotids were easily palpable bilaterally. There was no adenopathy. Lungs were clear to auscultation and percussion, and with normal diaphragmatic excursion. No wheezes or rales were noted. Cardiac exam revealed the PMI to be normally situated and sized. The rhythm was regular and no extrasystoles were noted during several minutes of auscultation. The first and second heart sounds were normal and physiologic splitting of the second heart sound was noted. There were no murmurs, rubs, clicks, or gallops. Abdominal exam revealed normal bowel sounds. The abdomen was soft, non-tender, and without masses, organomegaly, or appreciable enlargement of the abdominal aorta. Extremities are somewhat atrophied specially the upper extremities. No cyanosis or clubbing at this point. No open wounds or sores. Neurologically the patient is not able to answer questions. She is now alert and oriented 3. No facial asymmetry. Pupils are equal and reactive to light. Positive gag. Withdraws to painful stimulation in all 4 extremities. Sensory function is cannot be obtained. Psychiatric evaluation stable at this time. - Labs CBC & Chem 7: 03/19/18 04:09 03/19/18 04:09 Labs: Abnormal Lab Results - Last 24 Hours (Table) 03/18/18 03/18/18 03/18/18 Range/Units 11:59 12:18 12:18 RBC (3.80-5.40) m/uL Hgb (11.4-16.0) gm/dL Hct (34.0-46.0) % Lymphocytes # (1.0-4.8) k/uL Sodium (137-145) mmol/L Chloride (98-107) mmol/L Carbon Dioxide (22-30) mmol/L BUN (7-17) mg/dL Creatinine (0.52-1.04) mg/dL Glucose (74-99) mg/dL POC Glucose (mg/dL) 114 H (75-99) mg/dL Creatine Kinase 4596 H* (30-135) U/L CK-MB (CK-2) 7.5 H (0.0-2.4) ng/mL 03/18/18 03/19/18 03/19/18 Range/Units 18:02 04:09 04:09 RBC 3.33 L (3.80-5.40) m/uL Hgb 10.1 L (11.4-16.0) gm/dL Hct 32.2 L (34.0-46.0) % Lymphocytes # 0.2 L (1.0-4.8) k/uL Sodium 148 H (137-145) mmol/L Chloride 118 H (98-107) mmol/L Carbon Dioxide 21 L (22-30) mmol/L BUN 70 H (7-17) mg/dL Creatinine 1.17 H (0.52-1.04) mg/dL Glucose 167 H (74-99) mg/dL POC Glucose (mg/dL) 142 H (75-99) mg/dL Creatine Kinase (30-135) U/L CK-MB (CK-2) (0.0-2.4) ng/mL 03/19/18 Range/Units 04:09 RBC (3.80-5.40) m/uL Hgb (11.4-16.0) gm/dL Hct (34.0-46.0) % Lymphocytes # (1.0-4.8) k/uL Sodium (137-145) mmol/L Chloride (98-107) mmol/L Carbon Dioxide (22-30) mmol/L BUN (7-17) mg/dL Creatinine (0.52-1.04) mg/dL Glucose (74-99) mg/dL POC Glucose (mg/dL) (75-99) mg/dL Creatine Kinase 2352 H* (30-135) U/L CK-MB (CK-2) (0.0-2.4) ng/mL Microbiology - Last 24 Hours (Table) 03/17/18 03:30 Urine Culture - Final Urine,Catheterized Assessment and Plan Assessment: Assessment 1 acute kidney injury, likely secondary to rhabdomyolysis/intravascular volume depletion, improving 2 acute rhabdomyolysis 3 acute metabolic acidosis secondary to above 4 altered mental status secondary to above, CAT scan of the brain is negative. Suspect also possibility of a narcotic overdose as the patient has been taking a combination of Percocet and MS Contin on outpatient basis 5 chronic pain 6 history of thoracic herniated disc disease with thoracic spondylosis and facet arthropathy and the patient has been receiving epidural steroid injections 7 chronic neck pain 8 fibromyalgia 9 rheumatoid arthritis 10 COPD 11 recurrent falls 12 osteoporosis 13 previous history of hepatitis a and B 14 chronic narcotic use 15 breast cancer with a previous lumpectomy back in 2003 16 history of cervical cancer 17 history of cervical and lumbar disc fusion 18 left lower lobe infiltrates/pneumonia. Suspect aspiration. Plan: The patient was seen and evaluated by Dr. Abreu. She is currently stable from the pulmonary and critical care standpoint. We'll transfer her to a regular medical floor. Nephrology is on the case as well. She remains on lactated Ringer's at 150 ML's per hour. Continue Zosyn. Continue bronchodilators. Lovenox for DVT prophylaxis. Protonix for GI prophylaxis. Pain medication per medicine. Currently on hold. We will continue to follow and make further recommendations based on her clinical status. I, the cosigning physician, performed a history & physical examination of the patient. Lungs sounds are clear. Maintaining good O2 saturations in the 90s on room air. I discussed the assessment and plan of care with my nurse practitioner, Ruth Adhikari. I attest to the above note as dictated by her.
[2018-03-19 12:02] LABS: Glucose,Whole Blood 171 mg/dL (75-99)
[2018-03-19] MEDS ORDERED: DEXTROSE 5%-0.45% NACL 1,000 ML IV SCH (12:30)
[2018-03-19] MEDS ORDERED: SODIUM CHLORIDE 0.45% 1,000 ML IV ONE (13:43)
--- NOTE | 2018-03-19 14:54 | P.HP ---
Psychiatric H&P - . H&P Date: 03/18/18 History & Physical: Allergies Allergy/AdvReac Type Severity Reaction Status Date / Time Sulfa (Sulfonamide Allergy Severe Rash/Hives Verified 02/11/18 13:11 Antibiotics) Tetracyclines Allergy Severe Rash/Hives Verified 02/11/18 13:11 latex Allergy Rash/Hives Verified 02/11/18 13:11 lorazepam [From Ativan] AdvReac Confusion Verified 02/11/18 13:11 TIDE AND EXTRA LAUNDRY SOAP Allergy Rash/Hives Uncoded 02/11/18 13:11 Vital Signs Temp 98.8 F 03/18/18 08:00 Pulse 105 H 03/18/18 09:00 Resp 8 L 03/18/18 09:00 BP 154/80 03/18/18 09:00 Pulse Ox 100 03/18/18 09:00 Intake & Output 03/17/18 03/18/18 03/18/18 18:59 06:59 18:59 Intake Total 1320 300 Output Total 1385 290 Balance -65 10 Weight 65.771 kg 56.7 kg Intake: IV 1320 300 Sodium Chloride 0.9% 1, 1320 300 000 ml @ 150 mls/hr IV . Q6H40M [facility] Rx#:[id number] Oral 0 Output: Urine 1385 290 Other: Voiding Method Indwelling Catheter # Bowel Movements 0 Laboratory Last Values WBC 7.2 k/uL (3.8-10.6) 03/18/18 03:49 RBC 3.26 m/uL (3.80-5.40) L 03/18/18 03:49 Hgb 9.9 gm/dL (11.4-16.0) L D 03/18/18 03:49 Hct 31.4 % (34.0-46.0) L 03/18/18 03:49 MCV 96.3 fL (80.0-100.0) 03/18/18 03:49 MCH 30.5 pg (25.0-35.0) 03/18/18 03:49 MCHC 31.7 g/dL (31.0-37.0) 03/18/18 03:49 RDW 14.2 % (11.5-15.5) 03/18/18 03:49 Plt Count 223 k/uL (150-450) 03/18/18 03:49 Neutrophils % 88 % 03/18/18 03:49 Lymphocytes % 5 % 03/18/18 03:49 Monocytes % 5 % 03/18/18 03:49 Eosinophils % 0 % 03/18/18 03:49 Basophils % 0 % 03/18/18 03:49 Neutrophils # 6.4 k/uL (1.3-7.7) 03/18/18 03:49 Lymphocytes # 0.3 k/uL (1.0-4.8) L 03/18/18 03:49 Monocytes # 0.4 k/uL (0-1.0) 03/18/18 03:49 Eosinophils # 0.0 k/uL (0-0.7) 03/18/18 03:49 Basophils # 0.0 k/uL (0-0.2) 03/18/18 03:49 VBG pH 7.15 (7.31-7.41) L* 03/17/18 16:16 VBG pCO2 46 mmHg (37-51) 03/17/18 16:16 VBG HCO3 15 mmol/L (24-28) L 03/17/18 16:16 Sodium 145 mmol/L (137-145) 03/18/18 03:49 Potassium 4.3 mmol/L (3.5-5.1) 03/18/18 03:49 Chloride 112 mmol/L (98-107) H 03/18/18 03:49 Carbon Dioxide 18 mmol/L (22-30) L 03/18/18 03:49 Anion Gap 15 mmol/L 03/18/18 03:49 BUN 107 mg/dL (7-17) H* 03/18/18 03:49 Creatinine 3.53 mg/dL (0.52-1.04) H 03/18/18 03:49 Est GFR (CKD-EPI)AfAm 15 (>60 ml/min/1.73 sqM) 03/18/18 03:49 Est GFR (CKD-EPI)NonAf 13 (>60 ml/min/1.73 sqM) 03/18/18 03:49 Glucose 122 mg/dL (74-99) H 03/18/18 03:49 POC Glucose (mg/dL) 112 mg/dL (75-99) H 03/17/18 20:33 POC Glu Blanket Inspector ID Juanjose Lindsey 03/17/18 20:33 Osmolality 330 mosm/kg (280-301) H* 03/17/18 16:16 Plasma Lactic Acid Eliseo 1.5 mmol/L (0.7-2.0) 03/17/18 16:16 Calcium 7.7 mg/dL (8.4-10.2) L 03/18/18 03:49 Phosphorus 7.1 mg/dL (2.5-4.5) H 03/18/18 03:49 Magnesium 2.0 mg/dL (1.6-2.3) 03/18/18 03:49 Total Bilirubin 0.4 mg/dL (0.2-1.3) 03/18/18 03:49 AST 187 U/L (14-36) H 03/18/18 03:49 ALT 61 U/L (9-52) H 03/18/18 03:49 Alkaline Phosphatase 99 U/L (38-126) 03/18/18 03:49 Total Creatine Kinase 6984 U/L (30-135) H* 03/17/18 16:16 CK-MB (CK-2) 23.7 ng/mL (0.0-2.4) H 03/17/18 16:16 CK-MB (CK-2) Rel Index 03/17/18 16:16 Troponin I 0.023 ng/mL (0.000-0.034) 03/17/18 16:16 Total Protein 5.4 g/dL (6.3-8.2) L 03/18/18 03:49 Albumin 2.8 g/dL (3.5-5.0) L 03/18/18 03:49 Amylase 374 U/L (30-110) H* 03/17/18 16:16 Lipase 24 U/L (23-300) 03/17/18 16:16 Urine Color Yellow 03/17/18 17:04 Urine Appearance Cloudy (Clear) H 03/17/18 17:04 Urine pH 5.0 (5.0-8.0) 03/17/18 17:04 Ur Specific Sh[place]ley 1.020 (1.001-1.035) 03/17/18 17:04 Urine Protein 1+ (Negative) H 03/17/18 17:04 Urine Glucose (UA) Negative (Negative) 03/17/18 17:04 Urine Ketones Negative (Negative) 03/17/18 17:04 Urine Blood Moderate (Negative) H 03/17/18 17:04 Urine Nitrite Negative (Negative) 03/17/18 17:04 Urine Bilirubin 1+ (Negative) H 03/17/18 17:04 Urine Urobilinogen <2.0 mg/dL (<2.0) 03/17/18 17:04 Ur Leukocyte Esterase Negative (Negative) 03/17/18 17:04 Urine RBC 3 /hpf (0-5) 03/17/18 17:04 Urine WBC 3 /hpf (0-5) 03/17/18 17:04 Amorphous Sediment Rare /hpf (None) H 03/17/18 17:04 Urine Osmolality 346 mosm/kg (50-1400) 03/17/18 17:04 Urine HCG, Qual Not Detected (Not Detectd) 03/17/18 17:04 Salicylates <1.0 mg/dL 03/17/18 16:16 Urine Opiates Screen Detected (NotDetected) H 03/17/18 17:04 Ur Oxycodone Screen Detected (NotDetected) H 03/17/18 17:04 Urine Methadone Screen Not Detected (NotDetected) 03/17/18 17:04 Ur Propoxyphene Screen Not Detected (NotDetected) 03/17/18 17:04 Acetaminophen <10.0 ug/mL 03/17/18 16:16 Ur Barbiturates Screen Not Detected (NotDetected) 03/17/18 17:04 U Tricyclic Antidepress Not Detected (NotDetected) 03/17/18 17:04 Ur Phencyclidine Scrn Not Detected (NotDetected) 03/17/18 17:04 Ur Amphetamines Screen Not Detected (NotDetected) 03/17/18 17:04 U Methamphetamines Scrn Not Detected (NotDetected) 03/17/18 17:04 U Benzodiazepines Scrn Not Detected (NotDetected) 03/17/18 17:04 Urine Cocaine Screen Not Detected (NotDetected) 03/17/18 17:04 U Marijuana (THC) Screen Not Detected (NotDetected) 03/17/18 17:04 Serum Alcohol <10 mg/dL 03/17/18 16:16 Assessment and Plan Assessment: Chief Complaint: Altered Mental Status Stated Complaint: Altered Mental Time Seen by Provider: 03/17/18 16:10 - History of Present Illness: This 68-year-old female was found lying in the floor after she remembered tripping on a Cat and hitting the floor. Initial Comments: All my gosh look at a mini intensive care unit so embarrassed. This is a 68-year-old female who was found unresponsive lying on the floor of her room. She was brought in by EMS he was found to be dyspneic and did require a DuoNeb and route to. She apparently was initially wheezy minimally responsive. Her pupils were midpoint per paramedics. No signs of trauma. No other information available. Past Medical History Past Medical History: Cancer, COPD, Fibromyalgia, GI Bleed, Hyperlipidemia, Musculoskeletal Disorder, Osteoarthritis (OA), Rheumatoid Arthritis (RA), Syncope Additional Past Medical History / Comment(s): Hx Migraines,falls, Chronic back pain, DDD. Cervical and breast cancer." hx hep A and B". hx Anemia with blood transfusions and iron infusions,hx [id number], osteoporosis,tremors, t11 fx. left humeral fx History of Any Multi-Drug Resistant Organisms: None Reported Past Surgical History: Section, Hysterectomy, Orthopedic Surgery, Tonsillectomy Additional Past Surgical History / Comment(s): Cervical and Lumbar fusion; ORIF of Humerus with carlos and screws. lt breast lumpectomy 2001, 2ND lumpectomy [place] 2003 was [place]. Breast Reduction 2009.-had non healing wound afterwards then had wound closure and skin graft,Left breast mastectomy 2016, RT tympanoplasty. D&C. EXC Cataract RITU. Jarek Fundoplasty for hernia, removal of hardware from left shoulder, loop recorder 2013 Past Anesthesia/Blood Transfusion Reactions: No Reported Reaction, Family History of Problems w/ Anesthesia Additional Past Anesthesia/Blood Transfusion Reaction / Comment(s): SISTER TAKES LONGER TO AWAKEN, YEARS AGO. Past Psychological History: Anxiety, Depression, Panic Disorder, PTSD Smoking Status: Former smoker Past Alcohol Use History: Abuse, Heavy Past Drug Use History: None Reported - Past Family History Father Family Medical History: Congestive Heart Failure (CHF), COPD Additional Family Medical History / Comment(s): at age 72 Mother Family Medical History: Myocardial Infarction (DC) Additional Family Medical History / Comment(s): 1986 age 57 mi Folic Acid 1 mg PO DAILY 10/17/13 03/17/18 Ascorbic Acid [Vitamin C] 500 mg PO DAILY 12/31/15 03/17/18 buPROPion XL [Wellbutrin XL] 150 mg PO DAILY 02/04/16 03/17/18 Cyanocobalamin [Vitamin B-12] 500 mcg PO DAILY 06/08/16 03/17/18 Venlafaxine HCl [Effexor XR] 225 mg PO DAILY 03/02/17 03/17/18 Butalb/APAP/Caff 50-325-40Mg 1 tab PO Q4HR PRN 06/06/17 03/17/18 [Fioricet 50-325-40] Cholecalciferol [Vitamin D3] 4,000 unit PO DAILY 10/26/17 03/17/18 Pantoprazole [Protonix] 40 mg PO [id number] PRN 02/11/18 03/17/18 Atorvastatin [Lipitor] 40 mg PO DAILY 03/17/18 03/17/18 Lisinopril-Hctz 20-12.5 mg 1 tab PO DAILY 03/17/18 03/17/18 [Zestoretic 20-12.5] The patient presents alert, pleasant, and cooperative. There calmly seated without any agitated behavior. [She] reports that [her] mood is good. Affect is congruent and euthymic. [She] deny having any suicidal or homicidal ideation intent or plan. [She] denies any auditory or visual hallucinations. There is no evidence of any delusional thought content. [Her] thought process is linear and goal-directed. [Her] speech is fluent and nonpressured. [Her] memory and concentration is grossly intact for the purposes of this session. Impression: This is a 68-year-old female who had a traumatic fall with lying on the floor unconscious for unknown period of time. Today she is oriented to person place and time even though her ICU reports that 03/18/2018 she was able to state it was 03/19/2018. She is in discomfort but is not suicidal nor homicidal. She appears to be a reliable historian with a right shoulder previous injury which limits her range of motion within drinking water. She does see a pain clinic doctor Padmini and states that she has no difficulty with her medications and adheres to her medical treatment, Recommendations: From a psychiatric standpoint she has normal mental status examination with numerous physical ailments but she is a reliable historian and needs no further psychiatric treatment. Thank you so much for the consult. Christian Sow DO PhD attending psychiatrist Mahesh Pérez and professor of communication [facility] (1) Altered mental status Current Visit: No Status: Acute Priority: Low Code(s): R41.82 - ALTERED MENTAL STATUS, UNSPECIFIED SNOMED Code(s): 582976404 (2) Prescription drug abuse Current Visit: No Status: Acute Priority: Low Code(s): BHA1672 - SNOMED Code(s): 90800147 Plan: Clinical recommendations:Clinical Impression: Altered mental status, Delirium due to general medical condition, Prescription drug abuse, Dehydration, Rhabdomyolysis, Uremia, Acute renal failure
[2018-03-19] MEDS ORDERED: PANTOPRAZOLE 40 MG TABLET PO PRN (15:56)
[2018-03-19] MEDS: oxyCODONE-APAP 7.5-325MG 1 EACH TAB PO PRN (16:06)
--- NOTE | 2018-03-19 17:17 | PN ---
PROGRESS NOTE DATE OF SERVICE: 03/19/2018 PRESENTING COMPLAINT: Found unresponsive. INTERVAL HISTORY: This patient, now admitted in the ICU, was initially found unresponsive and to be in acute renal failure, rhabdomyolysis. Also took significant pain medications. She has turned around, getting IV fluids. She stated that she had fallen down and as a consequence had gone into renal failure. Patient did tolerate some diet, though still a bit rundown. REVIEW OF SYSTEMS: Done for constitutional, cardiovascular, GI, pulmonary; relevant findings as above. CURRENT MEDICATIONS: Reviewed. They include: 1. Catapres patch. 2. IV Zosyn. 3. IV fluids, decreased to half saline 70 mL/hour. PHYSICAL EXAMINATION: Temperature 98.6, pulse 99, respiration 15, blood pressure 147/86, pulse ox 100%. GENERAL APPEARANCE: Sitting up, more awake. EYES: Pupils equal. Conjunctivae normal. HEENT: External appearance of nose and ears normal. Oral cavity normal. NECK: JVD unable to assess. Mass not palpable. RESPIRATORY: Effort normal. Lungs are clear. CARDIOVASCULAR: First and second sounds normal. No edema. ABDOMEN: Soft, non-tender. Liver and spleen not palpable. PSYCHIATRY: Patient is awake, answering questions, though feels a bit low. NEUROLOGICAL: Moving all 4 limbs. INVESTIGATIONS: White count 4.6, hemoglobin 10.1, sodium 148, potassium 4.1, BUN 70, creatinine 1.17. CPK 2352. ASSESSMENT: 1. Acute metabolic encephalopathy, multifactorial, including from renal failure, much improved. 2. Acute Neurontin toxicity in a setting of renal failure. 3. Bilateral basilar infiltrates from aspiration pneumonia, likely of gastric contents. 4. Acute renal failure, likely prerenal. Cannot rule out ATN, though with significant improvement. 5. Chronic fibromyalgia. 6. Depression not otherwise specified. 7. Hyperlipidemia. 8. Chronic rheumatoid arthritis. 9. Peripheral neuropathy, idiopathic. 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 11.Acute rhabdomyolysis secondary to fall. Patient's IV fluids have been cut back. The patient's Percocet has been resumed. Will start the patient's Zanaflex. Given that renal function is improved, patient's Neurontin has also been resumed. Patient's MS Contin can be resumed later tonight, when I think the renal function should be close back to her baseline. MMODL / IJN: [id number] /
[2018-03-19 18:10] LABS: Glucose,Whole Blood 119 mg/dL (75-99)
--- NOTE | 2018-03-19 19:44 | PN ---
PROGRESS NOTE Patient is seen for followup for acute kidney injury, metabolic acidosis, and rhabdomyolysis. Her renal function has improved significantly. Patient's CK level is down to 2352 from 6000. She is maintained on IV fluids. Creatinine is down to 1.17 from 7.17 on initial admission. EXAMINATION: Patient is comfortable, awake. She is alert and oriented x3. She is not in any acute distress. Blood pressure is 146/90, heart rate 88 per minute. She is afebrile. Examination of the heart: S1, S2. Examination of the lungs: Bilateral breath sounds are heard. Abdomen is soft, nontender. Examination of lower extremities shows no evidence of edema. T[employer] exam is grossly intact. Patient moving all 4 extremities. Her voice is hoarse. LABS: Sodium 148, potassium 4.1, BUN 70, serum creatinine 1.17. CK 2352, hemoglobin 10.1 g/dL. ASSESSMENT: 1. Acute kidney injury secondary to hypotension, hypoperfusion and rhabdomyolysis, currently improved significantly with good urine output. 2. Metabolic acidosis currently secondary to renal failure, currently improving. 3. Rhabdomyolysis, also improving. 4. History of gastroesophageal reflux disease, status post Jarek fundoplication. 5. Pyuria with urine culture currently showing no growth. The patient is maintained on empiric antibiotics. 6. Hypernatremia associated with free water deficit. PLAN: Change IV fluids to half-normal saline. Once patient is tolerating oral intake. We can DC the clonidine patch and switch to oral antihypertensive agents. At home, patient was on lisinopril, hydrochlorothiazide which we can probably resume in 1-2 days. MMODL / IJN: [id number] /
[2018-03-19] MEDS: MORPHINE SULFATE ER 15 MG TABLET PO SCH (21:53)
[2018-03-19] MEDS: GABAPENTIN 300 MG CAP PO SCH (22:20)
[2018-03-20] MEDS: PIPERACILLIN-TAZOBACTAM 3.375 GM in DEXTROSE/WATER 1 50ML.BAG IVPB SCH ×3 (03:25→20:49)
[2018-03-20] MEDS: oxyCODONE-APAP 7.5-325MG 1 EACH TAB PO PRN ×2 (04:47→14:24)
[2018-03-20] MEDS: IPRATROPIUM-ALBUTEROL 3 ML NEB INHALATION SCH ×4 (09:59→19:08)
[2018-03-20] MEDS: MORPHINE SULFATE ER 15 MG TABLET PO SCH ×2 (10:13→20:56)
[2018-03-20 11:22] LABS: Basophils % (A) 0 %; Eosinophils # (A) 0.1 k/uL (0-0.7); Eosinophils % (A) 1 %; HCT 32.1 % (34.0-46.0); HGB 10.3 gm/dL (11.4-16.0); Lymphocytes # (A) 1.2 k/uL (1.0-4.8); Lymphocytes % (A) 13 %; MCH 30.6 pg (25.0-35.0); MCHC 31.9 g/dL (31.0-37.0); MCV 95.9 fL (80.0-100.0); Mean Platelet Volume 6.8; Monocytes # (A) 0.6 k/uL (0-1.0); Monocytes % (A) 7 %; Neutrophils # (A) 6.8 k/uL (1.3-7.7); Neutrophils % (A) 77 %; Platelet Count 166 k/uL (150-450); RBC 3.35 m/uL (3.80-5.40); RDW 14.2 % (11.5-15.5); WBC 8.8 k/uL (3.8-10.6)
[2018-03-20 11:32] LABS: Anion Gap 8 mmol/L; Blood Urea Nitrogen 38 mg/dL (7-17); Calcium 8.9 mg/dL (8.4-10.2); Carbon Dioxide 24 mmol/L (22-30); Chloride 114 mmol/L (98-107); Glucose 88 mg/dL (74-99); Magnesium 1.5 mg/dL (1.6-2.3); Phosphorus 2.2 mg/dL (2.5-4.5); Potassium 3.2 mmol/L (3.5-5.1); Sodium 146 mmol/L (137-145)
[2018-03-20] MEDS: FOLIC ACID 1 MG TAB PO SCH (12:57)
[2018-03-20] MEDS: CYANOCOBALAMIN 500 MCG TAB PO SCH (12:57)
[2018-03-20] MEDS: GABAPENTIN 300 MG CAP PO SCH ×2 (12:58→20:56)
[2018-03-20] MEDS: buPROPion XL 150 MG TAB.ER.24H PO SCH (12:58)
[2018-03-20] MEDS: PANTOPRAZOLE 40 MG/10 ML VIAL IVP SCH (12:58)
[2018-03-20] MEDS: ASCORBIC ACID 500 MG TAB PO SCH (12:58)
[2018-03-20] MEDS: CHOLECALCIFEROL 1,000 UNIT TAB PO SCH (12:58)
[2018-03-20] MEDS: ENOXAPARIN 40 MG/0.4 ML SYRINGE SQ SCH (12:58)
[2018-03-20] MEDS: VENLAFAXINE HCL ER 75 MG CAP PO SCH (12:58)
[2018-03-20] MEDS: ATORVASTATIN 40 MG TAB PO SCH (12:58)
--- NOTE | 2018-03-20 14:03 | P.PN ---
Subjective Progress Note Date: 03/20/18 Principal diagnosis: Altered mental status 68-year-old female patient, presented to the hospital because of altered mentation. The patient was found unresponsive lying on the floor and the exact time for her being unresponsive in that situation is not known. Apparently she was found and she was brought into the hospital via EMS. Upon arrival the patient was found to be in acute rhabdomyolysis, acute kidney injury, metabolic acidosis, with a CPK level of 6984 and a creatinine of 7.1. She was acidotic and based on the venous blood gas the pH was 7.15. She was given bicarb pushes. She was placed on IV fluids and she received a liter of bolus in the emergency department currently she is receiving a normal saline at the rate of 150 mL an hour. Follow-up creatinine is down to 3.5. CAT scan of the abdomen and pelvis was done and showed a patchy infiltration of the left lung base. Otherwise the rest of the intra-abdominal findings showed some thickening at the ileal cecal area. Ultrasound the kidneys was within normal limits. CAT scan of the brain was again negative for any acute findings. The patient had a urinalysis was positive for opiates and oxycodone. The patient takes MS Contin at home and Percocet. At a time of my evaluation this morning, she was still lethargic. She would follow simple commands such as moving her toes and fingers. She is profoundly weak and lethargic and she is unable to hold a conversation yet. She opens her eyes spontaneously and looks around and she may not and say yes and no. No agitation. No seizure activity was noted. She was given a dose of Narcan in the emergency department with limited of an improvement. The patient was seen again today 03/19/2018 in follow-up in the intensive care unit. She is much more awake and alert today as compared to yesterday. She denies any shortness of breath, cough or congestion. She is maintaining O2 saturations up to 100% on room air. She's been afebrile. Hemodynamically stable. White count 4.6. Hemoglobin 10.1. Sodium 148. Bicarb 21. Creatinine 1.17. Creatinine kinase 2352. Adequate urine output. She is continued on lactated Ringer's at 150 MLS per hour. She remains on Zosyn. Bronchodilators. The patient is seen again today 03/20/2018 in follow-up on the regular medical floor. She is awake and alert in no acute distress. She is resting comfortably in bed. She is oriented 3. She denies any worsening shortness of breath, cough or congestion. She is maintaining good O2 saturations in the high 90s on 2 L/m per nasal cannula. She's been afebrile. Hemodynamically stable. Urine culture was negative. White count 8.8. Hemoglobin 10.3. Creatinine 0.73. Objective - Vital Signs Vital signs: Vital Signs Temp 97.8 F 03/20/18 06:23 Pulse 93 03/20/18 06:23 Resp 18 03/20/18 06:23 BP 112/56 03/20/18 06:23 Pulse Ox 97 03/20/18 06:23 Intake & Output 03/19/18 03/20/18 03/20/18 18:59 06:59 18:59 Intake Total 810 Output Total 870 Balance -60 Weight 57.7 kg 57.5 kg Intake: Intake, IV Titration 810 Amount Lactated Ringers 1,000 ml 600 @ 150 mls/hr IV .[id number] [facility] Rx#:[id number] Sodium Chloride 0.45% 1, 140 000 ml @ 70 mls/hr IV . [id number] ONE Rx#:[id number] Sodium Chloride 0.45% 1, 70 000 ml @ 70 mls/hr IV . [id number] [facility] Rx#:[id number] Output: Urine 870 Other: Voiding Method Indwelling Catheter # Voids 1 - Exam Gen. appearance the patient is awake and alert in no acute distress. Maintaining good O2 saturations in the upper 90s on 2 L/m per nasal cannula Head exam was generally normal. There was no scleral icterus or corneal arcus. Mucous membranes were moist. Neck was supple and without jugular venous distension, thyromegaly, or carotid bruits. Carotids were easily palpable bilaterally. There was no adenopathy. Lungs were clear to auscultation and percussion, and with normal diaphragmatic excursion. No wheezes or rales were noted. Cardiac exam revealed the PMI to be normally situated and sized. The rhythm was regular and no extrasystoles were noted during several minutes of auscultation. The first and second heart sounds were normal and physiologic splitting of the second heart sound was noted. There were no murmurs, rubs, clicks, or gallops. Abdominal exam revealed normal bowel sounds. The abdomen was soft, non-tender, and without masses, organomegaly, or appreciable enlargement of the abdominal aorta. Extremities are somewhat atrophied specially the upper extremities. No cyanosis or clubbing at this point. No open wounds or sores. Neurologically the patient is not able to answer questions. She is now alert and oriented 3. No facial asymmetry. Pupils are equal and reactive to light. Positive gag. Withdraws to painful stimulation in all 4 extremities. Sensory function is cannot be obtained. Psychiatric evaluation stable at this time. - Labs CBC & Chem 7: 03/20/18 10:42 03/20/18 10:42 Labs: Abnormal Lab Results - Last 24 Hours (Table) 03/19/18 03/20/18 03/20/18 Range/Units 18:09 10:42 10:42 RBC 3.35 L (3.80-5.40) m/uL Hgb 10.3 L (11.4-16.0) gm/dL Hct 32.1 L (34.0-46.0) % Sodium 146 H (137-145) mmol/L Potassium 3.2 L (3.5-5.1) mmol/L Chloride 114 H (98-107) mmol/L BUN 38 H (7-17) mg/dL POC Glucose (mg/dL) 119 H (75-99) mg/dL Phosphorus 2.2 L (2.5-4.5) mg/dL Magnesium 1.5 L (1.6-2.3) mg/dL Microbiology - Last 24 Hours (Table) 03/17/18 03:30 Urine Culture - Final Urine,Catheterized Assessment and Plan Assessment: Assessment 1 acute kidney injury, likely secondary to rhabdomyolysis/intravascular volume depletion, recovered 2 acute rhabdomyolysis, improving 3 acute metabolic acidosis secondary to above 4 altered mental status secondary to above, CAT scan of the brain is negative. Suspect also possibility of a narcotic overdose as the patient has been taking a combination of Percocet and MS Contin on outpatient basis 5 chronic pain 6 history of thoracic herniated disc disease with thoracic spondylosis and facet arthropathy and the patient has been receiving epidural steroid injections 7 chronic neck pain 8 fibromyalgia 9 rheumatoid arthritis 10 COPD 11 recurrent falls 12 osteoporosis 13 previous history of hepatitis a and B 14 chronic narcotic use 15 breast cancer with a previous lumpectomy back in 2003 16 history of cervical cancer 17 history of cervical and lumbar disc fusion 18 left lower lobe infiltrates/pneumonia. Suspect aspiration. Plan: The patient was seen and evaluated by Dr. Abreu. She is currently stable from the pulmonary and critical care standpoint. Continue Zosyn. Continue bronchodilators. Lovenox for DVT prophylaxis. Protonix for GI prophylaxis. Pain medication per medicine. We will increase her activity as tolerated. We will continue to follow and make further recommendations based on her clinical status. I, the cosigning physician, performed a history & physical examination of the patient. Lungs sounds are clear. Maintaining good O2 saturations in the 90s on room air. I discussed the assessment and plan of care with my nurse practitioner, Ruth Adhikari. I attest to the above note as dictated by her.
[2018-03-20 15:26] VITALS: BMI 21.7
[2018-03-20] MEDS ORDERED: POTASSIUM CHLORIDE ER 20 MEQ TAB.ER PO STA (16:30)
--- NOTE | 2018-03-20 20:03 | PN ---
PROGRESS NOTE Patient is seen for followup for acute kidney injury. Renal function has improved significantly. Patient was hypotensive and hypovolemic with rhabdomyolysis. Her serum creatinine has come down from 7.17 to 0.73 mg/dL today. The patient had been in the ICU. She is transferred out. She is off of IV fluids. Has been tolerating oral intake. PHYSICAL EXAMINATION: Blood pressure is 128/78, heart rate 92 per minute. Patient is afebrile. Examination of the heart S1, S2. Examination of the lungs bilateral breath sounds are heard. Abdomen is soft, nontender. Examination of the lower extremities shows no significant edema. [employer]ISH[employer] exam is grossly intact. Patient moving all 4 extremities. LAB: Show sodium 146, potassium 3.2, BUN 38, serum creatinine 0.73. The hemoglobin was 10.3 g/dL. CK level was down to 2352. ASSESSMENT: 1. Acute kidney injury secondary to hypotension hypoperfusion and rhabdomyolysis currently significantly improved. Renal function is back to normal. 2. Hypokalemia. Will replace. 3. Hypernatremia. IV fluids were switched to half-normal saline. Serum sodium has improved. Currently, patient is not on any IV fluids. She is encouraged to maintain good oral intake. 4. Hypertension, currently maintained on clonidine patch. We can discontinue this as patient can take oral medications. She was on lisinopril at home and we can resume 10 mg of lisinopril. PLAN: 1. Replace potassium. 2. Resume ALICIA inhibitors. Start at a lower dose and DC clonidine. MMODL / IJN: [id number] /
--- NOTE | 2018-03-20 20:12 | PN ---
PROGRESS NOTE DATE OF SERVICE: 03/20/2018. PRESENTING COMPLAINT: Tired. INTERVAL HISTORY: This is a patient initially found unresponsive and in acute renal failure, rhabdomyolysis, moved out of ICU. Doing better. Getting IV fluids. Renal function is getting better. Still feeling a bit weak, but mentally more awake. Tolerating a diet. REVIEW OF SYSTEMS: Done for constitutional, cardiovascular, GI, pulmonary; relevant findings as above. CURRENT MEDICATIONS: Reviewed that include IV fluids, IV Zosyn. PHYSICAL EXAMINATION: Temperature 97.8, pulse 93, respiratory 18, blood pressure 102/56, pulse ox 97% on 2 L. GENERAL APPEARANCE: Sitting up, more awake. EYES: Pupils equal. Conjunctivae normal. HEENT: External nose and ears normal. Oral cavity normal. NECK: JVD not raised. Mass not palpable. RESPIRATORY: Effort, lungs are clear. CARDIOVASCULAR: First and second sounds, no edema. ABDOMEN: Soft, nontender. Liver and spleen not palpable. PSYCHIATRY: Alert, oriented x3. Mood and affect normal. INVESTIGATIONS: White count 8.8, potassium 3.2, BUN 38, creatinine 0.73, magnesium 1.5. ASSESSMENT: 1. Acute metabolic encephalopathy multifactorial including from renal failure, resolved. 2. Acute Neurontin toxicity in the setting of acute renal failure, improved. 3. Bibasilar infiltrates from aspiration pneumonia likely of gastric contents. 4. Acute renal failure likely prerenal, now corrected. 5. Chronic fibromyalgia. 6. Depression, not otherwise specified. 7. Hyperlipidemia. 8. Chronic rheumatoid arthritis. 9. Peripheral neuropathy idiopathic. 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 11.Acute rhabdomyolysis secondary to fall, improving. PLAN: The patient's renal function is greatly improved. Clinically patient doing much better. Probably will watch for another 24 hours. Switch over to oral antibiotics and hopefully can be discharged tomorrow. MMODL / IJN: [id number] /
[2018-03-21] MEDS: PIPERACILLIN-TAZOBACTAM 3.375 GM in DEXTROSE/WATER 1 50ML.BAG IVPB SCH ×3 (04:35→20:03)
[2018-03-21] MEDS: oxyCODONE-APAP 7.5-325MG 1 EACH TAB PO PRN (05:54)
[2018-03-21] MEDS: IPRATROPIUM-ALBUTEROL 3 ML NEB INHALATION SCH ×3 (07:16→19:18)
[2018-03-21 09:56] LABS: Anion Gap 8 mmol/L; Blood Urea Nitrogen 19 mg/dL (7-17); Calcium 8.7 mg/dL (8.4-10.2); Carbon Dioxide 24 mmol/L (22-30); Chloride 111 mmol/L (98-107); Glucose 133 mg/dL (74-99); Magnesium 1.1 mg/dL (1.6-2.3); Phosphorus 1.7 mg/dL (2.5-4.5); Potassium 3.2 mmol/L (3.5-5.1); Sodium 143 mmol/L (137-145)
[2018-03-21] MEDS: MORPHINE SULFATE ER 15 MG TABLET PO SCH ×2 (10:35→20:02)
[2018-03-21] MEDS: VENLAFAXINE HCL ER 75 MG CAP PO SCH (10:36)
[2018-03-21] MEDS: LISINOPRIL 10 MG TAB PO SCH (10:36)
[2018-03-21] MEDS: buPROPion XL 150 MG TAB.ER.24H PO SCH (10:36)
[2018-03-21] MEDS: GABAPENTIN 300 MG CAP PO SCH ×2 (10:36→20:01)
[2018-03-21] MEDS: ENOXAPARIN 40 MG/0.4 ML SYRINGE SQ SCH (10:36)
[2018-03-21] MEDS: ATORVASTATIN 40 MG TAB PO SCH (10:37)
[2018-03-21 10:48] LABS: Basophils % (A) 0 %; Eosinophils # (A) 0.1 k/uL (0-0.7); Eosinophils % (A) 1 %; HCT 31.4 % (34.0-46.0); HGB 9.6 gm/dL (11.4-16.0); Hypochromasia Slight; Lymphocytes # (A) 1.1 k/uL (1.0-4.8); Lymphocytes % (A) 10 %; MCH 30.8 pg (25.0-35.0); MCHC 30.7 g/dL (31.0-37.0); MCV 100.4 fL (80.0-100.0); Mean Platelet Volume 6.9; Monocytes # (A) 0.4 k/uL (0-1.0); Monocytes % (A) 4 %; Neutrophils # (A) 9.1 k/uL (1.3-7.7); Neutrophils % (A) 83 %; Platelet Count 143 k/uL (150-450); RBC 3.13 m/uL (3.80-5.40); WBC 10.9 k/uL (3.8-10.6)
[2018-03-21] MEDS ORDERED: POTASSIUM CHLORIDE ER 20 MEQ TAB.ER PO STA ×2 (13:17→13:26)
[2018-03-21] MEDS ORDERED: Phosphorus Replacement Protoco 1 EACH MISC MISCELLANE PRN (13:17)
--- NOTE | 2018-03-21 13:19 | P.PN ---
Subjective Patient is seen in follow-up for acute kidney injury. Oral intake is gradually improving. Renal function is back to baseline. She is nonoliguric. No vomiting or diarrhea. Potassium and magnesium remained low. Vital signs are stable. General: The patient appeared well nourished and normally developed. HEENT: Head exam is unremarkable. Neck is without jugular venous distension. LUNGS: Lungs are clear to auscultation and percussion. Breath sounds decreased. HEART: Rate and Rhythm are regular. First and second heart sounds normal. No murmurs, rubs or gallops. ABDOMEN: Abdominal exam reveals normal bowel sounds. Non-tender and non- distended. No evidence of peritonitis. EXTREMITITES: No clubbing, cyanosis, or edema. Objective - Vital Signs Vital signs: Vital Signs Temp 98.6 F 03/21/18 07:00 Pulse 63 03/21/18 07:00 Resp 18 03/21/18 07:00 BP 119/83 03/21/18 07:00 Pulse Ox 100 03/21/18 07:00 Intake & Output 03/20/18 03/21/18 03/21/18 18:59 06:59 18:59 Intake Total 760 Balance 760 Weight 57.5 kg 60.7 kg Intake: Intake, IV Titration 560 Amount Sodium Chloride 0.45% 1, 560 000 ml @ 70 mls/hr IV . [id number] [facility] Rx#:[id number] Oral 200 Other: Voiding Method Toilet Bedside Commode # Voids 3 - Labs CBC & Chem 7: 03/21/18 08:28 03/21/18 08:28 Labs: Abnormal Lab Results - Last 24 Hours (Table) 03/21/18 03/21/18 Range/Units 08:28 08:28 WBC 10.9 H (3.8-10.6) k/uL RBC 3.13 L (3.80-5.40) m/uL Hgb 9.6 L (11.4-16.0) gm/dL Hct 31.4 L (34.0-46.0) % MCV 100.4 H (80.0-100.0) fL MCHC 30.7 L (31.0-37.0) g/dL Plt Count 143 L (150-450) k/uL Neutrophils # 9.1 H (1.3-7.7) k/uL Potassium 3.2 L (3.5-5.1) mmol/L Chloride 111 H (98-107) mmol/L BUN 19 H (7-17) mg/dL Glucose 133 H (74-99) mg/dL Phosphorus 1.7 L (2.5-4.5) mg/dL Magnesium 1.1 L (1.6-2.3) mg/dL Assessment and Plan Plan: Assessment: 1. Nonoliguric acute kidney injury mostly prerenal improved with IV hydration. Also component of rhabdomyolysis. GFR back to baseline. 2. Hypokalemia secondary to hypomagnesemia. 3. Hypomagnesemia from poor oral intake. 4. Benign hypertension. Controlled. 5. Hyponatremia from lack of oral water intake. Improved with hypotonic fluid infusion. 6. Hyperphosphatemia from poor oral intake. Plan: Encouraged oral intake, including free water. Replace potassium. 40 mEq today. Replace magnesium. 4 g over 24 hours for better absorption. May require oral supplementation. 20 mmol of K-Phos IV. Repeat electrolytes in the morning.
[2018-03-21] MEDS: ASCORBIC ACID 500 MG TAB PO SCH (14:21)
[2018-03-21] MEDS: CHOLECALCIFEROL 1,000 UNIT TAB PO SCH (14:21)
[2018-03-21] MEDS: CYANOCOBALAMIN 500 MCG TAB PO SCH (14:21)
[2018-03-21] MEDS: FOLIC ACID 1 MG TAB PO SCH (14:21)
[2018-03-21] MEDS: MAGNESIUM SULFATE-D5W PMX 1 GM in DEXTROSE/WATER 1 100ML.BAG IVPB SCH ×3 (14:23→17:10)
[2018-03-21] MEDS: POTASSIUM PHOSPHATE 10 MMOL in SODIUM CHLORIDE 0.9% 250 ML IV SCH ×2 (18:15→20:35)
[2018-03-21] MEDS: AMOXIC-POT CLAV 875-125MG 1 EACH TAB PO SCH (23:25)
--- NOTE | 2018-03-22 00:22 | PN ---
PROGRESS NOTE DATE OF SERVICE: 03/21/2018. PRESENTING COMPLAINT: Tired. INTERVAL HISTORY: This patient was found unresponsive in acute renal failure, rhabdomyolysis. Doing much better. Renal function is greatly improved. Potassium is being supplemented. Tolerating a diet. Does feel a bit weak. workers compensation paralegal is involved. REVIEW OF SYSTEMS: Done for constitutional, cardiovascular, GI, pulmonary; relevant findings as above. CURRENT MEDICATIONS: Reviewed, that include IV Zosyn. PHYSICAL EXAMINATION: Temperature 98.6, pulse 63, respirations 18, blood pressure 109/83, pulse ox 100 percent room air. GENERAL APPEARANCE: Lying in bed, awake. EYES: Pupils equal. Conjunctivae normal. HEENT: External appearance of ears and nose normal. Oral cavity normal. NECK: JVD not raised. Mass not palpable. Respiratory effort normal. LUNGS: Clear. CARDIOVASCULAR: 1st and 2nd sounds normal. No edema. ABDOMEN: Soft, nontender. Liver and spleen not palpable. PSYCHIATRY: Alert and oriented x3. Mood and affect normal. INVESTIGATIONS: White count 10.9, potassium 3.2, BUN 19, creatinine 0.61, magnesium 1.1, phosphorus 4.7. ASSESSMENT: 1. Acute metabolic encephalopathy multifactorial including from renal failure, resolved. 2. Acute Neurontin toxicity in the setting of acute renal failure, improved. 3. Bypass infiltrates from aspiration pneumonia, likely gastric contents, much improved. 4. Acute renal failure, prerenal, resolved. 5. Chronic fibromyalgia. 6. Depression, not otherwise specified. 7. Hyperlipidemia. 8. Chronic rheumatoid arthritis. 9. Peripheral neuropathy, idiopathic. 10.Chronic nonunion at left upper humerus, causing chronic pain. 11.Acute rhabdomyolysis secondary to fall. 12.Hypokalemia, hypomagnesemia. PLAN: Patient's electrolytes are being replaced. The patient requests another 24 hours in the hospital as she is feeling weak. The patient does not want to go to rehab. MMODL / IJN: [id number] /
[2018-03-22] MEDS: oxyCODONE-APAP 7.5-325MG 1 EACH TAB PO PRN (03:20)
[2018-03-22 06:30] VITALS: BP 104/64; PULSE 70; RESP 15; TEMP 97.6
[2018-03-22] MEDS: IPRATROPIUM-ALBUTEROL 3 ML NEB INHALATION SCH ×2 (08:23→11:51)
[2018-03-22] MEDS: MORPHINE SULFATE ER 15 MG TABLET PO SCH (08:54)
[2018-03-22] MEDS: buPROPion XL 150 MG TAB.ER.24H PO SCH (08:54)
[2018-03-22] MEDS: ENOXAPARIN 40 MG/0.4 ML SYRINGE SQ SCH (08:54)
[2018-03-22] MEDS: GABAPENTIN 300 MG CAP PO SCH (08:54)
[2018-03-22] MEDS: ATORVASTATIN 40 MG TAB PO SCH (08:54)
[2018-03-22] MEDS: VENLAFAXINE HCL ER 75 MG CAP PO SCH (08:54)
[2018-03-22] MEDS: AMOXIC-POT CLAV 875-125MG 1 EACH TAB PO SCH (08:55)
[2018-03-22] MEDS: LISINOPRIL 10 MG TAB PO SCH (08:57)
[2018-03-22 09:00] LABS: Basophils % (A) 0 %; Eosinophils # (A) 0.2 k/uL (0-0.7); Eosinophils % (A) 2 %; HCT 27.3 % (34.0-46.0); Lymphocytes # (A) 1.1 k/uL (1.0-4.8); Lymphocytes % (A) 15 %; MCH 31.8 pg (25.0-35.0); MCHC 33.1 g/dL (31.0-37.0); MCV 96.2 fL (80.0-100.0); Mean Platelet Volume 7.3; Monocytes # (A) 0.2 k/uL (0-1.0); Monocytes % (A) 2 %; Neutrophils # (A) 6.2 k/uL (1.3-7.7); Neutrophils % (A) 79 %; Platelet Count 133 k/uL (150-450); RBC 2.84 m/uL (3.80-5.40); RDW 13.9 % (11.5-15.5); WBC 7.8 k/uL (3.8-10.6)
[2018-03-22 09:12] LABS: Anion Gap 6 mmol/L; Blood Urea Nitrogen 11 mg/dL (7-17); Calcium 7.8 mg/dL (8.4-10.2); Carbon Dioxide 27 mmol/L (22-30); Chloride 106 mmol/L (98-107); Glucose 102 mg/dL (74-99); Magnesium 1.4 mg/dL (1.6-2.3); Phosphorus 3.2 mg/dL (2.5-4.5); Potassium 3.1 mmol/L (3.5-5.1); Sodium 139 mmol/L (137-145)
[2018-03-22] MEDS ORDERED: Potassium Replacement Protocol 1 EACH MISC MISCELLANE PRN (09:29)
[2018-03-22] MEDS: POTASSIUM CHLORIDE ER 20 MEQ TAB.ER PO SCH ×2 (10:16→12:10)
[2018-03-22] MEDS ORDERED: POTASSIUM CHLORIDE ER 20 MEQ TAB.ER PO STA (12:06)
[2018-03-22] MEDS: ASCORBIC ACID 500 MG TAB PO SCH (12:10)
[2018-03-22] MEDS: CYANOCOBALAMIN 500 MCG TAB PO SCH (12:10)
[2018-03-22] MEDS: CHOLECALCIFEROL 1,000 UNIT TAB PO SCH (12:10)
[2018-03-22] MEDS: FOLIC ACID 1 MG TAB PO SCH (12:10)
--- NOTE | 2018-03-22 17:56 | PN ---
PROGRESS NOTE Patient is seen for followup for acute kidney injury. Her renal function has significantly improved and is currently normal. However, she remains hypokalemic and has been receiving potassium supplements. PHYSICAL EXAMINATION: On examination today, blood pressure was 104/64, heart rate 70 per minute. She patient is afebrile. Examination of the heart S1, S2. Examination of the lungs bilateral breath sounds are heard. Abdomen is soft, nontender. Examination lower extremity shows no evidence of edema. MEDIC[employer] SERVICE MANAGER exam is grossly intact. LAB: Show sodium 139, potassium 3.1, BUN 11, serum creatinine 0.5, magnesium 1.4. ASSESSMENT: 1. Acute kidney injury secondary to hypotension hypoperfusion and rhabdomyolysis, currently resolved. 2. Hypokalemia secondary to decreased oral intake, currently being replaced. The patient is also hypomagnesemic which is also being replaced. 3. Hypomagnesemia secondary to poor nutrition status post replacement. PLAN: Replace potassium. Okay for discharge from Nephrology standpoint. MMODL / IJN: [id number] /
--- NOTE | 2018-03-23 08:51 | DS ---
DISCHARGE SUMMARY DATE OF ADMISSION: 03/17/2018. DATE OF DISCHARGE: 03/22/2018. FINAL DIAGNOSES: 1. Acute metabolic encephalopathy multifactorial leading including renal failure. 2. Acute Neurontin toxicity in the setting of acute renal failure, present on admission. 3. Aspiration pneumonia from , likely gastric contents. 4. Acute renal failure prerenal resolved. 5. Chronic fibromyalgia. 6. Depression, not otherwise specified. 7. Hyperlipidemia. 8. Chronic rheumatoid arthritis. 9. Peripheral neuropathy idiopathic. 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 11.Acute rhabdomyolysis secondary to fall. 12.Hyperkalemia. 13.Hypermagnesemia. CONSULTATIONS: Dr. Prater from Nephrology, Dr. Abreu from Pulmonary. HOSPITAL COURSE: This patient tripped and fell at home now, not able to get up, was rather confused and lethargic when she presented. The patient's creatinine was up to 7.17. Did normalize after she was here. Electrolytes were corrected. The patient's Neurontin was temporally held. The patient did have aspiration pneumonia felt to be mainly chemical. Short course of antibiotic was given. Doing much better at the time of discharge. PHYSICAL EXAMINATION: Temperature 97.6, pulse 72, respiration 15, blood pressure 104/64, pulse ox 93% on room air. Lungs: Fair air entry. Psych AO x3. assembly worker was involved in discharge planning including home care. White count 7.8, hemoglobin 9, BUN and creatinine normal. DISCHARGE MEDICATIONS: 1. Folic acid 1 mg a day. 2. Vitamin C 500 mg a day. 3. Wellbutrin XL 150 mg p.o. daily. 4. Vitamin B12 500 mcg p.o. daily. 5. Effexor XR 225 mg p.o. daily. 6. Fioricet 1 tab q.4h p.r.n. 7. Vitamin D3 4000 units p.o. daily. 8. Zanaflex 2 mg q.12h p.r.n. 9. Neurontin 300 mg p.o. b.i.d. 10.MS Contin 50 mg q.12. 11.Protonix 40 mg with breakfast. 12.Percocet 7.5 one tab q.6h p.r.n. 13.Lipitor 40 mg daily. 14.Zestoretic 20/25 1 tablet p.o. daily. FOLLOWUP: Follow up with Dr. Tripathi on 03/27/2018. [facility] to follow. Social Work coordinated discharge. DISPOSITION: Home. Copy to Dr. Tripathi. Discussion and discharge planning more than 35 minutes. MMODL / IJN: [id number] /
== END 2018-03-22 14:54 | disposition home health service (06) | DRG 682 ==
LOC: EC 16:10 → 6ICU 19:30 → 4MS4W 03-19 20:38
PROVIDERS: ADMIT Hospitalist; ATTEND Hospitalist
DX: N17.0 Acute kidney failure with tubular necrosis (principal); J69.0 Pneumonitis due to inhalation of food and vomit; G93.41 Metabolic encephalopathy; E87.0 Hyperosmolality and hypernatremia; E87.2 Acidosis; F05 Delirium due to known physiological condition; M62.82 Rhabdomyolysis; N39.0 Urinary tract infection, site not specified; S42.202K Unspecified fracture of upper end of left humerus, subsequent encounter for fracture with nonunion; E78.5 Hyperlipidemia, unspecified; E83.39 Other disorders of phosphorus metabolism; E83.42 Hypomagnesemia; E86.0 Dehydration; E86.1 Hypovolemia; E87.5 Hyperkalemia; E87.6 Hypokalemia; E87.8 Other disorders of electrolyte and fluid balance, not elsewhere classified; F32.9 Major depressive disorder, single episode, unspecified; F41.0 Panic disorder [episodic paroxysmal anxiety]; F43.10 Post-traumatic stress disorder, unspecified; G62.9 Polyneuropathy, unspecified; G89.29 Other chronic pain; I10 Essential (primary) hypertension; J44.9 Chronic obstructive pulmonary disease, unspecified; K21.9 Gastro-esophageal reflux disease without esophagitis; M06.9 Rheumatoid arthritis, unspecified; M79.7 Fibromyalgia; M81.0 Age-related osteoporosis without current pathological fracture; R29.6 Repeated falls; W01.0XXA Fall on same level from slipping, tripping and stumbling without subsequent striking against object, initial encounter; Y92.009 Unspecified place in unspecified non-institutional (private) residence as the place of occurrence of the external cause; Z79.891 Long term (current) use of opiate analgesic; Z82.49 Family history of ischemic heart disease and other diseases of the circulatory system; Z82.5 Family history of asthma and other chronic lower respiratory diseases; Z85.3 Personal history of malignant neoplasm of breast; Z85.41 Personal history of malignant neoplasm of cervix uteri; Z87.891 Personal history of nicotine dependence; Z90.12 Acquired absence of left breast and nipple; Z90.710 Acquired absence of both cervix and uterus; Z88.1 Allergy status to other antibiotic agents; Z91.040 Latex allergy status; Z88.2 Allergy status to sulfonamides; Z88.8 Allergy status to other drugs, medicaments and biological substances; Z91.048 Other nonmedicinal substance allergy status; Z98.1 Arthrodesis status; Z98.42 Cataract extraction status, left eye; Z98.41 Cataract extraction status, right eye; T42.6X5A Adverse effect of other antiepileptic and sedative-hypnotic drugs, initial encounter
CPT/HCPCS: 36415; 51702; 70450; 71046; 74176; 76770; 80048; 80053; 80306; 80320; 81001; 81025; 82150; 82550; 82553; 82803; 83036; 83520; 83605; 83690; 83735; 83930; 83935; 84100; 84484; 85025; 87086; 93005; 94640; 96361; 96374; 96375; 96376; 99291

== ENCOUNTER → 2018-04-08 | Outpatient (CLI) | payer MEDICARE ==
[2018-04-08 12:33] VITALS: BP 110/72; PULSE 109; RESP 22
--- NOTE | 2018-04-09 09:02 | P.PAINPG ---
Subjective Progress Note Date: 04/08/18 This is follow-up visit for this patient with a history of severe and chronic neck pain pain and left shoulder pain diagnosed with cervical radiculopathy, recently she is complaining of severe left shoulder pain and she's been following up with orthopedic surgery, she is scheduled to see orthopedic surgeon for shoulder replacement, she continued to have severe intractable left shoulder pain, she is having some neck pain, she denies any numbness or tingling in the upper extremities or and lower extremities, she denies any motor or sensory deficit, she has only difficulty using her left upper extremity because of the intensity of the pain , she had peripheral neuropathy started after chemotherapy We have done interventional pain procedures cervical epidural steroid injection done 2 months ago which helped her neck pain Patients currently on MS Contin 15 mg every 12 hours, Percocet 5/325 every 6 hours, Neurontin 300 mg 3 times a day, Zanaflex 2 mg twice a day Patient denies any side effects of the medication, denies excessive drowsiness or sleepiness, denies suicidal ideation, and reports that the current pain medication is helping to control the pain and improve activity of daily living Patient denies any motor or sensory deficit , patient denies any fever or night sweats, denies any change in the bowel movements or urination Physical Examinations : 1-Constitutional : Cooperative , not in acute distress . 2-HEENT : nech ; supple , no Lymphadenopathy , no Thyromegaly , normal thyroid size . eyes : no ptosis , no icterus, no photophobia . ENT : normal of hearing , normal oropharynx , no Thrush . 3- Respiratory : Chest clear to auscultations Bilaterally , no wheezing , no Rhonchi . 4- Cardiovascular : regular rate and rhythem , S1 , S2 , no S3 , no S4. 5- Gastrointestinal : abdomen soft no tenderness , bowel sounds positive all four quadrents , no organomegally . 6- Genitourinary : Defferred . 7- neurologic: Cranial nerve II to XII intact , no focal neurological deffecit . 8- Psychatric: alert , oriented X 3 , appropriate affect , intact judgment and insight . 9- Lymphatic : no Lymphadenopathy . 10- Musculoskeltal : exams of the cervical spine = motor strength normal bilateral upper extremities Severe pain associated with active and passive movement of the left upper extremity exams of the Lumber spine =motor strength lower extremities ,thigh and legs .5/ Assessment and plan = Cervical radiculopathy , left upper extremity and shoulder pain, none union humerus fracture chronic and current use of high-risk medication (Opioids). The patient was counseled about risk of opioid use, psychological risk associated with opioids and was orally counseled to not overuse , divert,or sell dictations to take medications as prescribed only , and to restore medication in safe location , the patient counseled against driving while using narcotic medications , and also not to use alcohol or any illicit recreational drugs, patient's verbalized understanding that the lack of compliance will result in failure to renew narcotic prescription and possible discharge from the clinic - diagnoses, prognosis, and treatment options including but not limited to physical therapy, surgical interventions, interventional therapies , and medication management including narcotics and adjuvant medication were discussed with the patient and all the questions answered Medication management= recommend increasing his Percocet to 7.5/325 every 6 hours dispense 120 with one refill, continue MS Contin 15 mg twice a day Continue Neurontin 300 mg twice a day dispense 60 with 1 refill MAPS reviewed and it was appropriate, she will follow up with the pain clinic in 2 months Objective - Vital Signs Vital signs: Vital Signs Temp Pulse 109 H 04/08/18 12:24 Resp 22 04/08/18 12:24 BP 110/72 04/08/18 12:24 Pulse Ox 96 04/08/18 12:24 Intake & Output 04/08/18 04/09/18 04/09/18 18:59 06:59 18:59 Weight 58.967 kg PQRS Measure Charge Sheet Measure #130: Documentation of Current Meds in Medical Chart: Patient's medications documented in chart Measure #226: Tobacco Use: Screen & Cessation Intervention: Pt not a tobacco user Measure #111: Pneumonia Vaccination: Pneumococcal vaccine administered or previously received Measure #47: Advance Care Plan: Advance care planning discussed & documented, pt chose/unable to give Measure #412: Opioid Treatment Agreement: Documented signed opioid trtmnt agreemnt min once during opioid trtmnt Measure #408: Opioid Therapy Follow-up Evaluation: Patient had f/u eval minimum every 3 months during opioid therapy Measure #317: Preventitive Care & Scrn High Bld Press & F/U: Normal blood pressure, f/u not required Measure #128: Body Mass Index (BMI) Screening & Follow-up: BMI documented within normal parameters Measure #131: Pain Assessment & Follow-up: Pain positive & plan documented, Follow-up scheduled Measure #431: Unhealthy Alcohol Use Preventative Care & Scrn: Patient not identified as an unhealthy alcohol user PQRS Narrative: Smoking Status Former smoker Do You Want the Pneumonia Vaccine Up to Date Vaccine AT THIS TIME? Narcotic Agreement Date Signed 07/23/17 Blood Pressure 110/72 Pain Intensity [Left Shoulder] 8 Scale Used Numeric (1 - 10) Hx Alcohol Use (MH) Yes: way in the past Home Medications: Ambulatory Orders Folic Acid 1 mg PO DAILY 10/17/13 Ascorbic Acid [Vitamin C] 500 mg PO DAILY 12/31/15 buPROPion XL [Wellbutrin XL] 150 mg PO DAILY 02/04/16 Cyanocobalamin [Vitamin B-12] 500 mcg PO DAILY 06/08/16 Venlafaxine HCl [Effexor XR] 225 mg PO DAILY 03/02/17 Butalb/APAP/Caff 50-325-40Mg [Fioricet 50-325-40] 1 tab PO Q4HR PRN 06/06/17 Cholecalciferol [Vitamin D3] 4,000 unit PO DAILY 10/26/17 tiZANidine HCL [Zanaflex] 2 mg PO Q12H PRN #60 capsule 12/17/17 Pantoprazole [Protonix] 40 mg PO AC-BRKFST PRN 02/11/18 Atorvastatin [Lipitor] 40 mg PO DAILY 03/17/18 Lisinopril-Hctz 20-12.5 mg [Zestoretic 20-12.5] 1 tab PO DAILY 03/17/18 Gabapentin [Neurontin] 300 mg PO BID #60 tab 04/08/18 Morphine Sulfate ER [Ms Contin] 15 mg PO Q12H 30 Days #60 tab 04/08/18 Morphine Sulfate ER [Ms Contin] 15 mg PO Q12HR 30 Days #60 tab 04/08/18 oxyCODONE HCL/ACETAMINOPHEN [Percocet 7.5-325 mg] 1 tab PO Q6HR PRN 30 Days # 120 tab 04/08/18 oxyCODONE HCL/ACETAMINOPHEN [Percocet 7.5-325 mg] 1 tab PO Q6HR PRN 30 Days # 120 tab 04/08/18 Controlled Substance Measures - Controlled Substance Measures Is patient prescribed a controlled substance at discharge?: Yes When asked, does pt state using other controlled substances?: No If prescribed controlled substance>3 days was MAPS reviewed?: Yes If Rx opioid, was Start Talking consent form obtained?: Yes If opioid is for acute pain is fill amount 7 days or less?: No Was information provided regarding opioid addiction?: Yes
== END | disposition home or self-care (01) ==
LOC: PNWHC3 12:02
PROVIDERS: ATTEND Specialist
DX: G89.29 Other chronic pain (principal); M54.12 Radiculopathy, cervical region; S42.302K Unspecified fracture of shaft of humerus, left arm, subsequent encounter for fracture with nonunion; Z79.891 Long term (current) use of opiate analgesic; Z79.899 Other long term (current) drug therapy
CPT/HCPCS: 99211

== ENCOUNTER → 2018-05-23 | Outpatient (CLI) | payer MEDICARE ==
--- NOTE | 2018-05-23 08:48 | XR ---
EXAMINATION TYPE: XR chest 2V DATE OF EXAM: 05/23/2018 COMPARISON: 03/17/2018 HISTORY: Preoperative examination. TECHNIQUE: Frontal and lateral views of the chest are obtained. FINDINGS: Pulmonary hyperinflation and flattening of the diaphragm suggests underlying COPD. There i s no focal consolidation, pleural effusion or pneumothorax. There is a dextroscoliotic curvature of t he thoracic spine and partial visualization of a cervical fusion device. Cardiomediastinal silhouette is within normal limits with loop recorder identified. IMPRESSION: Radiographic sequela of COPD. No acute cardiac pulmonary process.
== END | disposition home or self-care (01) ==
LOC: RADXRMAIN 07:41
PROVIDERS: ATTEND Family Medicine
DX: Z01.818 Encounter for other preprocedural examination (principal); J44.9 Chronic obstructive pulmonary disease, unspecified
CPT/HCPCS: 71046

== ENCOUNTER → 2018-05-28 | Outpatient (CLI) | payer MEDICARE ==
[2018-05-28 12:37] VITALS: BP 129/90; PULSE 112; RESP 16
--- NOTE | 2018-05-28 13:02 | P.PN ---
Subjective Progress Note Date: 05/28/18 This is a 68-year-old lady with history of neck and left arm pain. The patient has an unhealed humerus fracture the left side she is going to have surgery on her left shoulder in a few days at [facility]. The patient gets Percocet and MS Contin from our clinic and we understand that she is going to get one week supply of Percocet postoperatively from her surgeon. Today, pt denies new-onset weakness, bowel/bladder incontinence, or any other signs or symptoms of cauda equina syndrome. There are no signs of acute intoxication, and no indications of medication diversion or overuse. In addition to above, 13-point review of systems is also negative for chest pain , shortness of breath, changes in vision, changes in hearing, new onset weakness , abdominal pain, diarrhea, extreme fatigue, malaise, fever, skin changes, homicidal or suicidal ideation, or bowel or bladder incontinence. Vital Signs: Reviewed in EMR Gen: AAOx3, NAD HEENT: PERRLA,hearing grossly normal Pulm: resp unlabored,CTA Heart:S1,S2, No Mur Neuro exam of the upper extremities showed normal and symmetrical deep tendon reflexes. She has a frozen left shoulder with very limited range of motion of the left shoulder Neuro: CN II-XII grossly intact, Imaging: Reviewed in EMR/chart Assessment: Left cervical radiculopathy Peripheral neuropathy Left shoulder pain due to an unhealed humerus fracture Plan: 1. Explanation: Opioid and psychological risk scores were reviewed. Diagnoses , prognoses, and multiple treatment options including but not limited to physical therapy, interventional therapies, adjuvant medical therapies, narcotic medication therapies, and surgery were discussed with the patient and all questions were answered to the patient's satisfaction. 2. Opioid agreement: Signed with the patient and the patient is warned not to use opioids while driving or before driving and not to combine opioids with benzodiazepines or alcohol. 3. Counseling: The patient was counseled extensively on SMOKING CESSATION, BODY MASS INDEX, EXERCISE. Specifically, the patient was instructed regarding the importance of smoking cessation, obesity, and exercise in the context of both chronic pain and overall health. 4. Procedures: None 5. Consultations: None 6. Investigations: None 7. Medications: I will reduce her Percocet dose to 3 pills a day and I will give her only 90 pills for the month. The patient will get one week worth of Percocet postoperatively from her surgeon 8. Disposition: Return to clinic in 4 weeks 9. Maps were reviewed and were appropriate. PQRS measures: 1-Patient's medications are documented in the chart. 2-Tobacco use is negative, counseling given 3-Patient has had a pneumococcal vaccine. 4-Advanced care planning discussed, patient unable to give 5-Opioid contract signed with the patient. 6-Pain positive, follow-up visit or procedure scheduled 7-Patient's blood pressure measured and documented within normal limits. 8-Patient's weight was measured, and body mass index below the normal limits, and counseling was done. Patient instructed to follow up with PCP. 9-Patient WAS NOT identified as an unhealthy alcohol user. Objective - Vital Signs Vital signs: Vital Signs Temp Pulse 112 H 05/28/18 12:30 Resp 16 05/28/18 12:30 BP 129/90 05/28/18 12:30 Pulse Ox 99 05/28/18 12:30 Intake & Output 05/27/18 05/28/18 05/28/18 18:59 06:59 18:59 Weight 49.895 kg
== END | disposition home or self-care (01) ==
LOC: PNWHC3 11:55
PROVIDERS: ATTEND Anesthesiology
DX: M54.12 Radiculopathy, cervical region (principal); S42.302D Unspecified fracture of shaft of humerus, left arm, subsequent encounter for fracture with routine healing; G90.9 Disorder of the autonomic nervous system, unspecified; Z79.891 Long term (current) use of opiate analgesic
CPT/HCPCS: 99211

== ENCOUNTER 2018-06-16 09:58 | Emergency (ER) | payer MEDICARE ==
[2018-06-16 10:22] VITALS: RESP 18
[2018-06-16] MEDS ORDERED: HYDROcodone/APAP 5-325MG 1 EACH TAB PO STA (10:54)
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
--- NOTE | 2018-06-16 12:16 | CT ---
EXAMINATION TYPE: CT brain emir doss DATE OF EXAM: 06/16/2018 COMPARISON: None HISTORY: Altered mental status. Pain. CT DLP: 1208.[address] of the brain was performed. The ventricles, basal cisterns and sulci overlying the cerebral convexities demonstrate mild enlargem ent. There is no evidence for intracranial hemorrhage or sulcal effacement. There is decreased attenuatio n about the periventricular white matter and deep white matter of both cerebral hemispheres, compatib le with chronic small vessel ischemia. No mass effects are seen. If symptoms persist consider MRI. Osseous calvarium is intact. IMPRESSION: 1. Age related atrophic and chronic small vessel ischemic change without acute intracranial process seen at this time. CT Cervical Spine: Unenhanced CT of the cervical spine was performed with bone and soft tissue window settings submitted . Coronal and sagittal reconstruction is obtained. There is normal alignment and prevertebral soft tissues. No evidence for acute cervical fracture . Po stoperative changes of anterior cervical discectomy and fusion. Scattered degenerative disc disease and spondylosis. Biapical scarring. IMPRESSION: 1. No evidence for acute fracture or subluxation of the cervical spine.
--- NOTE | 2018-06-16 12:17 | XR ---
EXAMINATION TYPE: XR shoulder complete LT DATE OF EXAM: 06/16/2018 CLINICAL HISTORY: pain COMPARISON: 01/31/2018 TECHNIQUE: Three views of the left shoulder are obtained. FINDINGS: There is no acute fracture/dislocation evident. There is evidence of glenohumeral prosthes is. Alignment is anatomic. Resection of a portion of the distal clavicle is redemonstrated. The visua lized ribs are intact and unremarkable. IMPRESSION: 1. There is no acute fracture or dislocation. ICD 10 NO FRACTURE, INITIAL EVALUATION
[2018-06-16 13:27] VITALS: BP 111/86; PULSE 89; TEMP 98.7
== END 2018-06-16 13:37 | disposition home or self-care (01) ==
LOC: EC 09:58
DX: M25.512 Pain in left shoulder (principal); M79.631 Pain in right forearm; M25.552 Pain in left hip; M25.551 Pain in right hip; E78.5 Hyperlipidemia, unspecified; M19.90 Unspecified osteoarthritis, unspecified site; F32.9 Major depressive disorder, single episode, unspecified; F41.0 Panic disorder [episodic paroxysmal anxiety]; Z79.899 Other long term (current) drug therapy; Z88.2 Allergy status to sulfonamides; Z88.1 Allergy status to other antibiotic agents; Z91.040 Latex allergy status; Z88.8 Allergy status to other drugs, medicaments and biological substances; Z91.048 Other nonmedicinal substance allergy status; Z85.41 Personal history of malignant neoplasm of cervix uteri; Z87.891 Personal history of nicotine dependence; Z90.12 Acquired absence of left breast and nipple; Z96.612 Presence of left artificial shoulder joint; Z98.1 Arthrodesis status; Y04.8XXA Assault by other bodily force, initial encounter; Y92.009 Unspecified place in unspecified non-institutional (private) residence as the place of occurrence of the external cause
CPT/HCPCS: 70450; 72125; 99284

== ENCOUNTER 2018-06-25 09:15 | Observation (INO) | payer MEDICARE ==
--- NOTE | 2018-06-25 09:29 | ED ---
Chest Pain HPI - General Chief Complaint: Chest Pain Stated Complaint: Cardiac issues Time Seen by Provider: 06/25/18 09:28 Source: patient, EMS, RN notes reviewed, old records reviewed Mode of arrival: EMS Limitations: no limitations - History of Present Illness Initial Comments: This is a 68-year-old female the ER for evaluation. Patient presents with multiple complaints today. Severe anxiety. Elevated blood pressure. Patient very nervous about her questioning in the emergency room. Patient states she also had some chest discomfort this morning she woke with the symptoms she also felt lightheaded and dizzy. This is been an ongoing issue for this patient history anxiety, states she's been seen by her doctors multiple times and never had any issues or findings. Patient did also have recent left shoulder surgery and is complaining of left shoulder pain. MD Complaint: chest pain, other (Left shoulder pain) -: hour(s) Onset: during rest, awoke with symptoms Pain Location: left chest Pain Radiation: LUE Severity: mild Severity scale (1-10): 3 Quality: aching Consistency: constant Improves With: nitroglycerin (That also caused headache) Worsens With: nothing Context: recent surgery Anginal Symptoms: nausea, diaphoresis, dyspnea Treatments Prior to Arrival: none - Related Data Home Medications Medication Instructions Recorded Confirmed buPROPion XL [Wellbutrin XL] 150 mg PO DAILY 02/04/16 06/25/18 Venlafaxine HCl [Effexor XR] 225 mg PO DAILY 03/02/17 06/25/18 Cholecalciferol [Vitamin D3] 2,000 unit PO DAILY 10/26/17 06/25/18 Atorvastatin [Lipitor] 40 mg PO HS 03/17/18 06/25/18 Lisinopril-Hctz 20-12.5 mg 1 tab PO DAILY 03/17/18 06/25/18 [Zestoretic 20-12.5] Cephalexin [Keflex] 500 mg PO Q8HR 06/25/18 06/25/18 Meloxicam [Mobic] 15 mg PO DAILY 06/25/18 06/25/18 Sennosides-Docusate Sodium 1 tab PO BID PRN 06/25/18 06/25/18 [Senokot-S] Previous Rx's Medication Instructions Recorded tiZANidine HCL [Zanaflex] 2 mg PO Q12H PRN #60 capsule 12/17/17 oxyCODONE HCL/ACETAMINOPHEN 1 tab PO Q6HR PRN 30 Days #120 tab 04/08/18 [Percocet 7.5-325 mg] Allergies Allergy/AdvReac Type Severity Reaction Status Date / Time Sulfa (Sulfonamide Allergy Severe Rash/Hives Verified 06/25/18 10:20 Antibiotics) Tetracyclines Allergy Severe Rash/Hives Verified 06/25/18 10:20 latex Allergy Rash/Hives Verified 06/25/18 10:20 lorazepam [From Ativan] AdvReac Confusion Verified 06/25/18 10:20 TIDE AND EXTRA LAUNDRY SOAP Allergy Rash/Hives Uncoded 06/16/18 10:22 Review of Systems ROS Statement: Those systems with pertinent positive or pertinent negative responses have been documented in the HPI. ROS Other: All systems not noted in ROS Statement are negative. EKG Findings - EKG Comments: EKG Findings:: EKG shows sinus rhythm rate of 71, AK 142, QRS 76, QTc 425 Past Medical History Past Medical History: Cancer, COPD, Fibromyalgia, GI Bleed, Hyperlipidemia, Musculoskeletal Disorder, Osteoarthritis (OA), Rheumatoid Arthritis (RA), Syncope Additional Past Medical History / Comment(s): COPD, hyperlipidemia, rheumatoid arthritis, chronic pain related to a humeral fracture with subsequent injury to her, T11 spinal fracture, previous history of humeral fracture, history of rest cancer, history of cervical cancer, chronic back pain, migraines, recurrent falls, chronic narcotic medication dependence, fibromyalgia, previous history of GI bleed, osteoarthritis History of Any Multi-Drug Resistant Organisms: None Reported Past Surgical History: Section, Hysterectomy, Orthopedic Surgery, Tonsillectomy Additional Past Surgical History / Comment(s): Cervical and Lumbar fusion; ORIF of Humerus with carlos and screws. lt breast lumpectomy 2001, 2ND lumpectomy [place] 2003 was [place]. Breast Reduction 2009.-had non healing wound afterwards then had wound closure and skin graft,Left breast mastectomy 2016, RT tympanoplasty. D&C. EXC Cataract RITU. Jarek Fundoplasty for hernia, removal of hardware from left shoulder, loop recorder 2013 Past Anesthesia/Blood Transfusion Reactions: No Reported Reaction, Unable to Obtain, Family History of Problems w/ Anesthesia Additional Past Anesthesia/Blood Transfusion Reaction / Comment(s): SISTER TAKES LONGER TO AWAKEN, YEARS AGO. Past Psychological History: Anxiety, Depression, Panic Disorder, PTSD Smoking Status: Former smoker Past Alcohol Use History: None Reported Past Drug Use History: None Reported - Past Family History Father Family Medical History: Congestive Heart Failure (CHF), COPD Additional Family Medical History / Comment(s): at age 72 Mother Family Medical History: Myocardial Infarction (HI) Additional Family Medical History / Comment(s): 1987 age 57 mi General Exam Limitations: no limitations General appearance: alert, in no apparent distress, anxious Head exam: Present: atraumatic, normocephalic, normal inspection Eye exam: Present: normal appearance, PERRL, EOMI. Absent: scleral icterus, conjunctival injection, periorbital swelling ENT exam: Present: normal exam, mucous membranes moist Neck exam: Present: normal inspection. Absent: tenderness, meningismus, lymphadenopathy Respiratory exam: Present: normal lung sounds bilaterally. Absent: respiratory distress, wheezes, rales, rhonchi, stridor Cardiovascular Exam: Present: regular rate, normal rhythm, normal heart sounds. Absent: systolic murmur, diastolic murmur, rubs, gallop, clicks GI/Abdominal exam: Present: soft, normal bowel sounds. Absent: distended, tenderness, guarding, rebound, rigid Extremities exam: Present: normal inspection, full ROM, normal capillary refill. Absent: tenderness, pedal edema, joint swelling, calf tenderness Back exam: Present: normal inspection Neurological exam: Present: alert, oriented X3, CN II-XII intact Psychiatric exam: Present: normal affect, normal mood Skin exam: Present: warm, dry, intact, normal color. Absent: rash Course Vital Signs 06/25/18 06/25/18 06/25/18 09:17 09:30 09:35 Temperature 98.4 F Pulse Rate 72 76 68 Respiratory 20 17 18 Rate Blood Pressure 139/104 139/104 144/98 O2 Sat by Pulse 99 99 99 Oximetry 06/25/18 06/25/18 06/25/18 10:00 10:30 11:00 Temperature Pulse Rate 68 63 Respiratory 17 18 Rate Blood Pressure 144/98 144/98 160/89 O2 Sat by Pulse 100 99 Oximetry 06/25/18 11:30 Temperature Pulse Rate 71 Respiratory 18 Rate Blood Pressure 131/84 O2 Sat by Pulse 98 Oximetry - Reevaluation(s) Reevaluation #1: 06/25/18 10:48 Medical record is reviewed Reevaluation #2: 06/25/18 11:56 Patient is continued of chest pain and not feeling well here in the ER Chest Pain MDM - MDM This is a 68-year-old female the ER for evaluation of chest pain left arm pain. Patient states she has had persistent chest pain rule out cardiac. Patient will be admitted for cardiac observation Disposition Clinical Impression: Chest pain of uncertain etiology, Chest pain, Hypokalemia, Hypomagnesemia Disposition: ADMITTED IP TO THIS HOSP Condition: Fair Is patient prescribed a controlled substance at d/c from ED?: No Referrals: Easton Tripathi DO [Primary Care Provider] - 1-2 days
[2018-06-25] MEDS ORDERED: ONDANSETRON 4 MG/2 ML VIAL IVP STA (09:44)
[2018-06-25] MEDS ORDERED: DIAZEPAM 5 MG/ML 2 ML INJ IVP STA (09:44)
[2018-06-25] MEDS ORDERED: MORPHINE SULFATE 4 MG/ML SYRINGE IV STA (09:44)
[2018-06-25 10:16] LABS: Basophils % (A) 0 %; Eosinophils # (A) 0.4 k/uL (0-0.7); Eosinophils % (A) 8 %; HCT 33.2 % (34.0-46.0); HGB 11.2 gm/dL (11.4-16.0); Lymphocytes # (A) 1.1 k/uL (1.0-4.8); Lymphocytes % (A) 25 %; MCH 31.4 pg (25.0-35.0); MCHC 33.7 g/dL (31.0-37.0); MCV 93.3 fL (80.0-100.0); Mean Platelet Volume 7.7; Monocytes # (A) 0.3 k/uL (0-1.0); Monocytes % (A) 7 %; Neutrophils # (A) 2.6 k/uL (1.3-7.7); Neutrophils % (A) 58 %; Platelet Count 286 k/uL (150-450); RBC 3.56 m/uL (3.80-5.40); RDW 13.4 % (11.5-15.5); WBC 4.4 k/uL (3.8-10.6)
[2018-06-25] MEDS: SODIUM CHLORIDE 0.9% 1,000 ML IV STA ×2 (10:21→12:53)
[2018-06-25 10:30] LABS: ALT 39 U/L (9-52); AST 31 U/L (14-36); Albumin 3.3 g/dL (3.5-5.0); Alkaline Phosphatase 117 U/L (38-126); Anion Gap 7 mmol/L; Blood Urea Nitrogen 6 mg/dL (7-17); Calcium 9.5 mg/dL (8.4-10.2); Carbon Dioxide 29 mmol/L (22-30); Chloride 106 mmol/L (98-107); Glucose 102 mg/dL (74-99); Lipase 72 U/L (23-300); Magnesium 1.2 mg/dL (1.6-2.3); Potassium 3.2 mmol/L (3.5-5.1); Sodium 142 mmol/L (137-145); Total Bilirubin 0.3 mg/dL (0.2-1.3)
[2018-06-25 10:46] LABS: Creatine Kinase 35 U/L (30-135)
[2018-06-25 10:51] LABS: Partial Thromboplastin Time 23.6 sec (22.0-30.0); Prothrombin Time 10.6 sec (9.0-12.0)
[2018-06-25 11:00] LABS: Creatine Kinase MB 0.7 ng/mL (0.0-2.4); Troponin I <0.012 ng/mL (0.000-0.034)
[2018-06-25] MEDS ORDERED: POTASSIUM BICARBONATE/CIT AC 20 MEQ TABLET.EFF PO ONE (11:25)
[2018-06-25] MEDS ORDERED: HEPARIN SODIUM,PORCINE 5,000 UNIT/ML 1 ML VIAL IV PRN (11:52)
[2018-06-25] MEDS ORDERED: ASPIRIN 81 MG PO STA (11:52)
[2018-06-25] MEDS ORDERED: NITROGLYCERIN SL TABS 0.4 MG TAB SUBLINGUAL PRN (11:52)
[2018-06-25] MEDS ORDERED: HEPARIN SODIUM,PORCINE 5,000 UNIT/ML 1 ML VIAL IV ONE (11:52)
[2018-06-25] MEDS ORDERED: SODIUM CHLORIDE 0.9% 1,000 ML IV SCH (12:00)
[2018-06-25] MEDS ORDERED: HEPARIN SOD,PORK IN 0.45% NACL 25,000 UNIT in 0.45% NACL 1 250ML.BAG IV SCH (12:00)
[2018-06-25] MEDS ORDERED: SENNOSIDES-DOCUSATE SODIUM 1 EACH TAB PO PRN (12:28)
[2018-06-25] MEDS: oxyCODONE-APAP 7.5-325MG 1 EACH TAB PO PRN ×2 (12:43→18:28)
[2018-06-25] MEDS: MAGNESIUM SULFATE-D5W PMX 1 GM in DEXTROSE/WATER 1 100ML.BAG IVPB SCH ×2 (12:52→16:40)
[2018-06-25] MEDS: buPROPion XL 150 MG TAB.ER.24H PO SCH (12:56)
[2018-06-25] MEDS: MELOXICAM 7.5 MG TAB PO SCH (12:56)
[2018-06-25] MEDS: LISINOPRIL-HCTZ 20-12.5 MG 1 EACH TAB PO SCH (12:57)
[2018-06-25] MEDS: VENLAFAXINE HCL ER 75 MG CAP PO SCH (12:57)
--- NOTE | 2018-06-25 13:27 | XR ---
EXAMINATION TYPE: XR chest 2V DATE OF EXAM: 06/25/2018 COMPARISON: 05/23/2018 INDICATION: Chest pain TECHNIQUE: Frontal and lateral views of the chest are obtained. FINDINGS: The heart size is normal. The pulmonary vasculature is normal. The lungs are clear. There is a left shoulder prosthesis. Electronic device overlies left chest. EKG leads overlie the chest. IMPRESSION: 1. No acute pulmonary process.
[2018-06-25] MEDS ORDERED: CEPHALEXIN 500 MG CAP PO SCH (16:00)
[2018-06-25 16:23] LABS: Creatine Kinase 39 U/L (30-135)
[2018-06-25 16:30] VITALS: RESP 18
[2018-06-25 16:36] LABS: Creatine Kinase MB 0.6 ng/mL (0.0-2.4); Troponin I <0.012 ng/mL (0.000-0.034)
[2018-06-25] MEDS ORDERED: NALOXONE 0.4 MG/ML 1 ML VIAL IV PRN (19:35)
[2018-06-25] MEDS ORDERED: CALCIUM CARBONATE 500 MG CHEWABLE PO PRN (19:35)
[2018-06-25] MEDS ORDERED: ACETAMINOPHEN TAB 325 MG TAB PO PRN (19:35)
[2018-06-25] MEDS ORDERED: MELATONIN 3 MG TABLET PO PRN (19:35)
--- NOTE | 2018-06-25 20:36 | HP ---
HISTORY AND PHYSICAL DATE OF ADMISSION: 06/25/2018 DATE OF SERVICE: 06/25/2018 PRESENTING COMPLAINT: Weak and tired. HISTORY OF PRESENTING COMPLAINT: This is a pleasant 68-year-old patient of Dr. Tripathi. Chronic stable medical conditions include fibromyalgia, hyperlipidemia, rheumatoid arthritis, peripheral neuropathy. The patient also has chronic pain and does follow with Dr. Brice. Patient underwent left shoulder surgery at [facility] on May 30 and was given a protracted course of antibiotics prophylactically, she says. There was no infection from what she tells me. She did take the antibiotics for 2 weeks and stopped about 10 days ago. Since then, patient has been feeling weak and tired, has been having anywhere from 2 to 3 bowel movements a day. No obvious abdominal pain. Has had some chills. No obvious fever. Feels weak, tired, rundown, decreased appetite, some nausea; just feels overall weak, tired, rundown and hence presented to the hospital. REVIEW OF SYSTEMS: CONSTITUTIONAL: Weak, tired, decreased appetite. HEENT: None. RESPIRATORY: None. CARDIOVASCULAR: None. GASTROINTESTINAL: As above. GENITOURINARY: None. MUSCULOSKELETAL: Chronic pain in different joints. Shoulder is better. DERMATOLOGICAL: None. HEMATOLOGICAL: None. LYMPHATICS: None. PSYCHIATRY: Uncontrolled. Feels very anxious. NEUROLOGICAL: Numbness and tingling in the hands and feet. PAST MEDICAL HISTORY: 1. COPD. 2. Fibromyalgia. 3. GI bleed. 4. Hyperlipidemia. 5. Osteoarthritis. 6. Rheumatoid arthritis. 7. Hyperlipidemia. 8. Chronic pain related to humeral fracture. 9. T11 spinal fracture. 10.Cervical cancer. 11.Chronic back pain. 12.Recurrent falls. 13.Fibromyalgia. 14.GI bleed. PAST SURGICAL HISTORY: 1. . 2. Hysterectomy. 3. Tonsillectomy. 4. Cervical and lumbar fusion. 5. ORIF of the humerus with rods and screws. 6. Left breast lumpectomy in 2001 and then in 2003. Second one was a cancer. 7. Breast reduction in 2009. Had a nonhealing wound afterwards. 8. Left mastectomy in July 2016. 9. Right tympanoplasty. 10.Extraction of bilateral cataracts. 11.Jarek fundoplasty for hernia. 12.Removal of hardware from left shoulder. 13.Loop recorder in 2013. PSYCH HISTORY: 1. Depression. 2. Anxiety. 3. PTSD. SOCIAL HISTORY: Patient's was murdered over 10 years ago. Patient smoked for about 14 years, stopped in 1977. She smoked a pack a day. 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 History of crack heroin. No IV use. Pain medications. Clean for 21 years. FAMILY HISTORY: Congestive heart failure, COPD. HOME MEDICATIONS: 1. Senokot S one tablet p.o. b.i.d. p.r.n. 2. Zestoretic 20/12.5 one tablet p.o. daily. 3. Percocet 7.5 one tablet q.6 p.r.n. 4. Effexor XR 225 mg p.o. daily. 5. Mobic 15 mg p.o. daily. 6. Lipitor 40 mg at bedtime. 7. Wellbutrin XL 150 mg p.o. daily. 8. Vitamin D3 2000 units p.o. daily. 9. Keflex 500 mg q.8. 10.Zanaflex 2 mg q.12 p.r.n. ALLERGIES: 1. SULFA. 2. TETRACYCLINE. 3. LATEX. 4. ATIVAN. 5. TIDE AND EXTRA LAUNDRY SOAP. PHYSICAL EXAMINATION: VITAL SIGNS ON PRESENTATION: Temperature 98.4, pulse 72, respiration 20, blood pressure 139/104, pulse ox 99% on room air. GENERAL APPEARANCE: Thin build. Lying in bed, somewhat anxious-appearing. EYES: Pupils equal. Conjunctivae normal. HEENT: External appearance of nose and ears normal. Oral cavity normal. NECK: JVD not raised. Mass not palpable. RESPIRATORY: Effort normal. LUNGS: Fair air entry. CARDIOVASCULAR: First and second sounds normal. No edema. ABDOMEN: Soft, non-tender. Liver and spleen not palpable. LYMPHATIC: No lymph node palpable in neck or axillae. PSYCHIATRY: Alert and oriented x3. Mood and affect anxious-appearing. NEUROLOGICAL: Pupils equal. Cranial nerves grossly intact. Power and sensation grossly intact. INVESTIGATIONS: White count 4.4, hemoglobin 11.2, potassium 3.2, BUN 6, creatinine 0.6. Troponin x2 negative. Albumin 3.3. EKG tracing personally reviewed by me shows normal sinus rhythm. Chest x-ray film personally reviewed by me shows lung case to be clear. There is a left shoulder prosthesis. ASSESSMENT: 1. Anxiety disorder not otherwise specified, uncontrolled, likely situational, given that patient lives by herself, is somewhat anxious about getting about and getting things done. 2. Acute diarrhea following 2 weeks of antibiotics. Need to rule out C difficile. 3. Clinical dehydration, decreased oral intake, feels weak, tired, rundown. 4. Chronic fibromyalgia. 5. Hyperlipidemia. 6. Chronic rheumatoid arthritis. 7. Chronic peripheral neuropathy. 8. Recent left shoulder replacement at [facility]. PLAN: Patient will be started on IV fluids. Stool will be sent for C difficile. Patient's chest pain appears to be psychosomatic. Will get a consultation from Psychiatry. The patient's shoulder otherwise is healing well. Care was discussed with the patient. Questions were answered. Will give Lovenox for DVT prophylaxis. MMODL / IJN: [id number] /
[2018-06-25] MEDS ORDERED: METOPROLOL TARTRATE 25 MG TAB PO SCH (21:00)
[2018-06-25] MEDS ORDERED: ATORVASTATIN 40 MG TAB PO SCH (21:00)
[2018-06-25] MEDS: ALPRAZolam 0.25 MG TAB PO PRN (21:04)
[2018-06-25 22:26] LABS: Creatine Kinase 39 U/L (30-135)
[2018-06-25 22:40] LABS: Creatine Kinase MB 0.7 ng/mL (0.0-2.4); Troponin I <0.012 ng/mL (0.000-0.034)
[2018-06-25] MEDS ORDERED: oxyCODONE-APAP 7.5-325MG 1 EACH TAB ONE (23:20)
[2018-06-26] MEDS ORDERED: ALPRAZolam 0.25 MG TAB ONE (03:00)
[2018-06-26] MEDS: LACTATED RINGERS 1,000 ML IV SCH ×3 (05:30→17:54)
[2018-06-26] MEDS: oxyCODONE-APAP 7.5-325MG 1 EACH TAB PO PRN ×2 (05:31→14:12)
[2018-06-26 08:23] LABS: Anion Gap 3 mmol/L; Blood Urea Nitrogen 11 mg/dL (7-17); Carbon Dioxide 31 mmol/L (22-30); Chloride 105 mmol/L (98-107); Cholesterol 83 mg/dL (<200); Glucose 77 mg/dL (74-99); HDL Cholesterol 44 mg/dL (40-60); LDL Cholesterol,Calculated 22 mg/dL (0-99); Potassium 4.2 mmol/L (3.5-5.1); Sodium 139 mmol/L (137-145); Triglycerides 85 mg/dL (<150)
--- NOTE | 2018-06-26 08:34 | CONS ---
CONSULTATION Mrs. Britney Neely is a lady with history of hypertension, hyperlipidemia who has paid multiple visits to the hospital. She has had left shoulder surgery because of some previous nerve injury type situation and this surgery was performed at [facility]. The surgery was performed on 30 of May. She has been complaining of pain in the left shoulder and also has sharp pains in the anterior chest. Also complains of some shortness of breath. With these symptoms, she came into the hospital. She is quite anxious. Her quality of pain is very atypical. Within the last 1 year, she had an echocardiogram in January which was normal and a dobutamine echo was also in September which was unremarkable. Her quality of pain is atypical, but she is resting comfortably without symptoms at the time of my evaluation. PAST MEDICAL HISTORY: Remarkable for breast cancer on the left side with mastectomy and radiation. She has COPD, past history of smoking, history of hypertension, hyperlipidemia, question of rheumatoid arthritis and osteoarthritis. The patient apparently had some chronic pain in the left shoulder with some nerve injury and recently had a surgery at [facility]. MEDICATIONS: Medications at home include Effexor, vitamin supplements, Lipitor 40 mg daily, lisinopril HCTZ 20/12.5, Keflex, meloxicam. ALLERGIES: She is allergic to ATIVAN, SULFA and TETRACYCLINES. PHYSICAL EXAMINATION: On examination, blood pressure is 118/70, pulse rate is about 56 per minute. HEENT: Unremarkable. Fundus was not examined by me. Neck is supple. No JVD. I do not hear a carotid bruit. Heart exam reveals S1, S2 heard normally. No significant rub, murmur or gallop. Lungs are clear. Abdomen is soft, nontender. Lower extremities reveal normal pulses. No edema. Central nervous system grossly within normal limits, but a detailed exam was not performed. EKG sinus mechanism, no acute changes. LAB DATA: Laboratory data revealed that her troponins are all normal. IMPRESSION: 1. Atypical chest pain. 2. History of recent shoulder surgery. 3. Hypertension. 4. Hyperlipidemia. 5. History of breast cancer, status post mastectomy. RECOMMENDATION: I am recommending a D-dimer level. I will cut down the metoprolol tartrate to 12.5 mg daily. Her recent echo and dobutamine echo within the last 6 months to 1 year were normal. No intervention is necessary. Her clinical presentation does not suggest of any acute ischemic syndrome. However, I will do a D-dimer to rule out any pulmonary embolism/DVT type picture, which is not evident clinically. If this is normal, patient can be discharged and no further cardiac workup would be necessary. I discussed my thoughts in detail with the patient. Thank you very much for the consult. BLAINE / HAYLEY: [id number] /
[2018-06-26] MEDS ORDERED: ASPIRIN 325 MG TAB PO SCH (09:00)
[2018-06-26] MEDS ORDERED: ENOXAPARIN 40 MG/0.4 ML SYRINGE SQ SCH (09:00)
[2018-06-26] MEDS ORDERED: ASPIRIN 81 MG PO SCH (09:00)
[2018-06-26] MEDS ORDERED: METOPROLOL TARTRATE 12.5 MG TAB PO SCH (09:00)
[2018-06-26] MEDS: LISINOPRIL-HCTZ 20-12.5 MG 1 EACH TAB PO SCH (09:14)
[2018-06-26] MEDS: VENLAFAXINE HCL ER 75 MG CAP PO SCH (09:15)
[2018-06-26] MEDS: MELOXICAM 7.5 MG TAB PO SCH (09:15)
[2018-06-26] MEDS: buPROPion XL 150 MG TAB.ER.24H PO SCH (09:15)
[2018-06-26 09:35] LABS: Mean Platelet Volume 7.6; Platelet Count 218 k/uL (150-450)
--- NOTE | 2018-06-26 12:12 | CT ---
EXAMINATION TYPE: CT angio chest DATE OF EXAM: 06/26/2018 COMPARISON: CTA chest May 02, 2016 HISTORY: Chest pain, shortness of breath, s/p shoulder surgery CT DLP: 461.9 mGycm. Automated Exposure Control for Dose Reduction was Utilized. CONTRAST: CTA scan of the thorax is performed with IV Contrast, patient injected with 100, wasted 32 mL of Isov ue 370, pulmonary embolism protocol. MIP Images are created on CT scanner and reviewed. FINDINGS: LUNGS: Slightly elevated left hemidiaphragm is redemonstrated. Dependent atelectasis bilateral lower lobes is seen. Mild underlying interstitial edema felt present centrally in the left lower lobe. Infe rior to this there is slightly more prominent focal left basilar linear atelectasis. No suspicious fo manpreet consolidation is seen. No pleural effusion or pneumothorax is identified. No suspicious nodules o r masses are identified. Tracheobronchial tree is patent. MEDIASTINUM: There is satisfactory enhancement of the pulmonary artery and its branches, there is no CT evidence for pulmonary embolism. There are no greater than 1 cm hilar or mediastinal lymph nodes. No cardiomegaly or pericardial effusion is seen. Main pulmonary artery measures 2.6 cm at bifurcat ion axial image 49. Adjacent ascending aorta measures 3.4 cm in diameter. Reflux of contrast into hep atic veins and IVC is seen suggesting degree of right heart failure. OTHER: Left breast is now surgically absent. Metallic density inferior lateral left chest wall of unc ertain etiology has changed from medial position on prior study possible loop recorder. There is part ial visualization of surgical change to the left shoulder causing streak artifact limiting evaluation at this level. Excretion in kidney versus product of IV failure. Localizer shows partial visualizati on of surgical change in the lower lumbar spine. IMPRESSION: 1. No CT evidence for acute pulmonary embolism. 2. Mild central left lower lobe interstitial edema and/or infiltrates new from prior study.
[2018-06-26 15:40] VITALS: BP 115/65; PULSE 57; TEMP 97.9
[2018-06-26] MEDS: ALPRAZolam 0.25 MG TAB PO PRN (17:53)
--- NOTE | 2018-06-27 01:03 | DS ---
DISCHARGE SUMMARY DATE OF ADMISSION: 06/25/2018. DATE OF DISCHARGE: 06/26/2018. FINAL DIAGNOSES: 1. Anxiety disorder, not otherwise specified, uncontrolled, situational. 2. Clinical dehydration from decreased oral intake. 3. Chronic fibromyalgia. 4. Hyperlipidemia. 5. Chronic rheumatoid arthritis. 6. Chronic peripheral neuropathy. 7. Recent left shoulder replacement at [facility]. 8. Diarrhea, completely resolved. HOSPITAL COURSE: This patient presented weak, tired and run down with some diarrhea at home. She had no further diarrhea down here. Given IV fluids to which she responded well. Seen by Cardiology who did order a chest CTA. Negative for PE. The patient was seen by Psychiatry. Did not feel the need for any further intervention by the psychiatrist. Also seen by [facility] [employer] [facility] who coordinated care. Today the patient is overall doing much better. Discussed with her. Tolerating a diet much better. PHYSICAL EXAMINATION: Temperature 97.9, pulse 57, respiratory rate 18, blood pressure 105/65, pulse ox 99% on room air. Lungs, fair air entry. INVESTIGATIONS: Potassium 4.2. BUN and creatinine normal. DISCHARGE MEDICATIONS: 1. Wellbutrin XL 150 mg a day. 2. Effexor XR 225 mg a day. 3. Vitamin D3, 2000 units p.o. daily. 4. Zanaflex 2 mg p.o. every 12 p.r.n. 5. Lipitor 40 mg p.o. at bedtime. 6. Zestoretic /12.5 one tab p.o. daily. 7. Percocet 7.5 one tab every 6 hours p.r.n. 8. Mobic 50 mg p.o. daily. 9. Senokot S 1 tablet p.o. b.i.d. p.r.n. FOLLOWUP: 1. Follow up with Dr. Sharon Munguia as needed. 2. Follow up with Dr. Tripathi in 3 days. 3. Patient to follow up with the orthopedic doctor who did surgery per his notice. MMODL / IJN: [id number] /
== END 2018-06-26 18:25 | disposition home or self-care (01) ==
LOC: EC 09:15 → 1SOBS 11:52
PROVIDERS: ADMIT Hospitalist; ATTEND Hospitalist
DX: F41.0 Panic disorder [episodic paroxysmal anxiety] (principal); E86.0 Dehydration; M79.7 Fibromyalgia; E78.5 Hyperlipidemia, unspecified; M06.9 Rheumatoid arthritis, unspecified; R19.7 Diarrhea, unspecified; G62.9 Polyneuropathy, unspecified; G89.29 Other chronic pain; J44.9 Chronic obstructive pulmonary disease, unspecified; M19.90 Unspecified osteoarthritis, unspecified site; F32.9 Major depressive disorder, single episode, unspecified; F43.10 Post-traumatic stress disorder, unspecified; I10 Essential (primary) hypertension; R42 Dizziness and giddiness; R07.89 Other chest pain; R06.02 Shortness of breath; M54.9 Dorsalgia, unspecified; E87.6 Hypokalemia; E83.42 Hypomagnesemia; Z79.899 Other long term (current) drug therapy; Z96.612 Presence of left artificial shoulder joint; Z79.1 Long term (current) use of non-steroidal anti-inflammatories (NSAID); Z98.1 Arthrodesis status; Z87.19 Personal history of other diseases of the digestive system; R29.6 Repeated falls; Z82.49 Family history of ischemic heart disease and other diseases of the circulatory system; Z88.1 Allergy status to other antibiotic agents; Z87.891 Personal history of nicotine dependence; Z88.2 Allergy status to sulfonamides; Z91.040 Latex allergy status; Z88.8 Allergy status to other drugs, medicaments and biological substances; Z91.048 Other nonmedicinal substance allergy status; Z92.3 Personal history of irradiation; Z85.3 Personal history of malignant neoplasm of breast; Z85.41 Personal history of malignant neoplasm of cervix uteri; Z98.890 Other specified postprocedural states; F10.21 Alcohol dependence, in remission
CPT/HCPCS: 96366 ×3; 96367; 96372; 96376; 96365; 96375; 99285; 36415; 93005; 97162; 97530; 85379; 83880; 80061; 80053; 80048; 82550; 82553; 83690; 83735; 84484; 85025; 85049; 85610; 85730; 71046; 71275; G0378 ×2; J2270; J1644 ×2; J3360; J2405; J1650; J3475; Q9967

== ENCOUNTER 2018-07-04 08:23 | Emergency (ER) | payer MEDICARE ==
[2018-07-04] MEDS ORDERED: SODIUM CHLORIDE 0.9% 1,000 ML IV STA (08:46)
[2018-07-04] MEDS ORDERED: LORazepam 2 MG/ML INJ IV STA (08:47)
--- NOTE | 2018-07-04 08:52 | ED ---
General Adult HPI - General Chief complaint: Syncope Stated complaint: Vomiting, fall, dizziness Time Seen by Provider: 07/04/18 08:26 Source: patient, RN notes reviewed, old records reviewed Mode of arrival: wheelchair Limitations: no limitations - History of Present Illness Initial comments: 68-year-old female presenting for evaluation of cough and cold symptoms, as well as some nausea and diarrhea. The symptoms have been ongoing although she states her upper respiratory symptoms have been present for the past one week. She does deal with intermittent nausea and diarrhea at baseline. She was recently admitted to the hospital for chest pain rule out. She states she had some electrolyte abnormalities which she has been attempting to correct with supplementation at home. Patient does admit to being anxious and has history of anxiety. She also has history of fibromyalgia. Denies chest pain at the time my evaluation. No significant vomiting, only nausea. Minimal abdominal pain. No fever or chills. - Related Data Home Medications Medication Instructions Recorded Confirmed buPROPion XL [Wellbutrin XL] 150 mg PO DAILY 02/04/16 07/04/18 Venlafaxine HCl [Effexor XR] 225 mg PO DAILY 03/02/17 07/04/18 Cholecalciferol [Vitamin D3] 2,000 unit PO DAILY 10/26/17 07/04/18 Atorvastatin [Lipitor] 40 mg PO HS 03/17/18 07/04/18 Lisinopril-Hctz 20-12.5 mg 1 tab PO DAILY 03/17/18 07/04/18 [Zestoretic 20-12.5] Meloxicam [Mobic] 15 mg PO DAILY 06/25/18 07/04/18 Sennosides-Docusate Sodium 1 tab PO BID PRN 06/25/18 07/04/18 [Senokot-S] Previous Rx's Medication Instructions Recorded tiZANidine HCL [Zanaflex] 2 mg PO Q12H PRN #60 capsule 12/17/17 oxyCODONE HCL/ACETAMINOPHEN 1 tab PO Q6HR PRN 30 Days #120 tab 04/08/18 [Percocet 7.5-325 mg] Allergies Allergy/AdvReac Type Severity Reaction Status Date / Time Sulfa (Sulfonamide Allergy Severe Rash/Hives Verified 07/04/18 08:41 Antibiotics) Tetracyclines Allergy Severe Rash/Hives Verified 07/04/18 08:41 latex Allergy Rash/Hives Verified 07/04/18 08:41 lorazepam [From Ativan] AdvReac Confusion Verified 07/04/18 08:41 TIDE AND EXTRA LAUNDRY SOAP Allergy Rash/Hives Uncoded 06/16/18 10:22 Review of Systems ROS Statement: Those systems with pertinent positive or pertinent negative responses have been documented in the HPI. ROS Other: All systems not noted in ROS Statement are negative. Past Medical History Past Medical History: Cancer, COPD, Fibromyalgia, GI Bleed, Hyperlipidemia, Musculoskeletal Disorder, Osteoarthritis (OA), Rheumatoid Arthritis (RA), Syncope Additional Past Medical History / Comment(s): COPD, hyperlipidemia, rheumatoid arthritis, chronic pain related to a humeral fracture with subsequent injury to her, T11 spinal fracture, previous history of humeral fracture, history of rest cancer, history of cervical cancer, chronic back pain, migraines, recurrent falls, chronic narcotic medication dependence, fibromyalgia, previous history of GI bleed, osteoarthritis History of Any Multi-Drug Resistant Organisms: None Reported Past Surgical History: Section, Hysterectomy, Orthopedic Surgery, Tonsillectomy Additional Past Surgical History / Comment(s): Cervical and Lumbar fusion; ORIF of Humerus with carlos and screws. lt breast lumpectomy 2001, 2ND lumpectomy [place] 2003 was [place]. Breast Reduction 2009.-had non healing wound afterwards then had wound closure and skin graft,Left breast mastectomy 2016, RT tympanoplasty. D&C. EXC Cataract RITU. Jarek Fundoplasty for hernia, removal of hardware from left shoulder, loop recorder 2013 Past Anesthesia/Blood Transfusion Reactions: No Reported Reaction, Unable to Obtain, Family History of Problems w/ Anesthesia Additional Past Anesthesia/Blood Transfusion Reaction / Comment(s): SISTER TAKES LONGER TO AWAKEN, YEARS AGO. Past Psychological History: Anxiety, Depression, Panic Disorder, PTSD Smoking Status: Former smoker Past Alcohol Use History: None Reported Past Drug Use History: None Reported - Past Family History Father Family Medical History: Congestive Heart Failure (CHF), COPD Additional Family Medical History / Comment(s): at age 72 Mother Family Medical History: Myocardial Infarction ([place]) Additional Family Medical History / Comment(s): 1987 age 57 mi General Exam Limitations: no limitations General appearance: alert, in no apparent distress, anxious Head exam: Present: atraumatic, normocephalic Eye exam: Present: normal appearance, PERRL ENT exam: Present: normal exam, other (Nasal congestion, mild pharyngeal erythema) Neck exam: Present: normal inspection. Absent: tenderness, meningismus Respiratory exam: Present: normal lung sounds bilaterally. Absent: respiratory distress, wheezes Cardiovascular Exam: Present: normal rhythm, tachycardia GI/Abdominal exam: Present: soft. Absent: distended, tenderness, guarding, rebound Extremities exam: Present: normal inspection, normal capillary refill. Absent: pedal edema Neurological exam: Present: alert, oriented X3. Absent: motor sensory deficit Psychiatric exam: Present: anxious Skin exam: Present: warm, dry, intact, normal color. Absent: cyanosis, diaphoretic Course Vital Signs 07/04/18 07/04/18 07/04/18 08:26 09:27 10:02 Temperature 98.3 F Pulse Rate 138 H 108 H 105 H Respiratory 18 20 20 Rate Blood Pressure 166/111 138/104 179/124 O2 Sat by Pulse 99 99 100 Oximetry 07/04/18 10:35 Temperature Pulse Rate 112 H Respiratory 18 Rate Blood Pressure 178/105 O2 Sat by Pulse 98 Oximetry EKG Findings - EKG Comments: EKG Findings:: EKG: Sinus tachycardia, possible left atrial enlargement rate of 122, MO interval 188, QRS duration 72, QTC 413, no ST segment changes Medical Decision Making - Medical Decision Making 68 -year-old female presenting with multiple complaints. Workup in the emergency department regarding these complaints reveals chest x-ray negative for focal pneumonia, x-ray of the abdomen is negative for obstruction or free air. Patient has a normal CBC CMP reveals hypokalemia at 3.0 which is replaced , normal magnesium. Urinalysis is negative, influenza is negative. Patient's symptoms are at least in some part related to anxiety and depression. She is given outpatient information and counseling. She has no suicidal ideation. She will return with worsening or changing symptoms. - Lab Data Result diagrams: 07/04/18 08:52 07/04/18 08:52 Lab Results 07/04/18 07/04/18 07/04/18 Range/Units 08:52 08:52 08:52 WBC 5.3 (3.8-10.6) k/uL RBC 4.02 (3.80-5.40) m/uL Hgb 12.1 (11.4-16.0) gm/dL Hct 38.5 (34.0-46.0) % MCV 95.7 (80.0-100.0) fL MCH 30.1 (25.0-35.0) pg MCHC 31.5 (31.0-37.0) g/dL RDW 14.1 (11.5-15.5) % Plt Count 303 (150-450) k/uL Neutrophils % 69 % Lymphocytes % 15 % Monocytes % 6 % Eosinophils % 8 % Basophils % 1 % Neutrophils # 3.7 (1.3-7.7) k/uL Lymphocytes # 0.8 L (1.0-4.8) k/uL Monocytes # 0.3 (0-1.0) k/uL Eosinophils # 0.4 (0-0.7) k/uL Basophils # 0.0 (0-0.2) k/uL PT (9.0-12.0) sec INR (<1.2) APTT (22.0-30.0) sec Sodium 142 (137-145) mmol/L Potassium 3.0 L (3.5-5.1) mmol/L Chloride 105 (98-107) mmol/L Carbon Dioxide 26 (22-30) mmol/L Anion Gap 11 mmol/L BUN 5 L (7-17) mg/dL Creatinine 0.58 (0.52-1.04) mg/dL Est GFR (CKD-EPI)AfAm >90 (>60 ml/min/1.73 sqM) Est GFR (CKD-EPI)NonAf >90 (>60 ml/min/1.73 sqM) Glucose 118 H (74-99) mg/dL Plasma Lactic Acid Eliseo 1.5 (0.7-2.0) mmol/L Calcium 10.3 H (8.4-10.2) mg/dL Magnesium (1.6-2.3) mg/dL Total Bilirubin 0.3 (0.2-1.3) mg/dL AST 25 (14-36) U/L ALT 28 (9-52) U/L Alkaline Phosphatase 165 H (38-126) U/L Troponin I (0.000-0.034) ng/mL Total Protein 7.3 (6.3-8.2) g/dL Albumin 4.1 (3.5-5.0) g/dL Amylase 47 (30-110) U/L Lipase 46 (23-300) U/L Urine Color Urine Appearance (Clear) Urine pH (5.0-8.0) Ur Specific [place] (1.001-1.035) Urine Protein (Negative) Urine Glucose (UA) (Negative) Urine Ketones (Negative) Urine Blood (Negative) Urine Nitrite (Negative) Urine Bilirubin (Negative) Urine Urobilinogen (<2.0) mg/dL Ur Leukocyte Esterase (Negative) Influenza Type A RNA (Not Detectd) Influenza Type B (PCR) (Not Detectd) 07/04/18 07/04/18 07/04/18 Range/Units 08:52 08:52 08:52 WBC (3.8-10.6) k/uL RBC (3.80-5.40) m/uL Hgb (11.4-16.0) gm/dL Hct (34.0-46.0) % MCV (80.0-100.0) fL MCH (25.0-35.0) pg MCHC (31.0-37.0) g/dL RDW (11.5-15.5) % Plt Count (150-450) k/uL Neutrophils % % Lymphocytes % % Monocytes % % Eosinophils % % Basophils % % Neutrophils # (1.3-7.7) k/uL Lymphocytes # (1.0-4.8) k/uL Monocytes # (0-1.0) k/uL Eosinophils # (0-0.7) k/uL Basophils # (0-0.2) k/uL PT 9.5 (9.0-12.0) sec INR 0.9 (<1.2) APTT 19.7 L (22.0-30.0) sec Sodium (137-145) mmol/L Potassium (3.5-5.1) mmol/L Chloride (98-107) mmol/L Carbon Dioxide (22-30) mmol/L Anion Gap mmol/L BUN (7-17) mg/dL Creatinine (0.52-1.04) mg/dL Est GFR (CKD-EPI)AfAm (>60 ml/min/1.73 sqM) Est GFR (CKD-EPI)NonAf (>60 ml/min/1.73 sqM) Glucose (74-99) mg/dL Plasma Lactic Acid [place]ise[place] (0.7-2.0) mmol/L Calcium (8.4-10.2) mg/dL Magnesium 1.7 (1.6-2.3) mg/dL Total Bilirubin (0.2-1.3) mg/dL AST (14-36) U/L ALT (9-52) U/L Alkaline Phosphatase (38-126) U/L Troponin I <0.012 (0.000-0.034) ng/mL Total Protein (6.3-8.2) g/dL Albumin (3.5-5.0) g/dL Amylase (30-110) U/L Lipase (23-300) U/L Urine Color Urine Appearance (Clear) Urine pH (5.0-8.0) Ur Specific [place] (1.001-1.035) Urine Protein (Negative) Urine Glucose (UA) (Negative) Urine Ketones (Negative) Urine Blood (Negative) Urine Nitrite (Negative) Urine Bilirubin (Negative) Urine Urobilinogen (<2.0) mg/dL Ur Leukocyte Esterase (Negative) Influenza Type A RNA (Not Detectd) Influenza Type B (PCR) (Not Detectd) 07/04/18 07/04/18 Range/Units 08:58 09:55 WBC (3.8-10.6) k/uL RBC (3.80-5.40) m/uL Hgb (11.4-16.0) gm/dL Hct (34.0-46.0) % MCV (80.0-100.0) fL MCH (25.0-35.0) pg MCHC (31.0-37.0) g/dL RDW (11.5-15.5) % Plt Count (150-450) k/uL Neutrophils % % Lymphocytes % % Monocytes % % Eosinophils % % Basophils % % Neutrophils # (1.3-7.7) k/uL Lymphocytes # (1.0-4.8) k/uL Monocytes # (0-1.0) k/uL Eosinophils # (0-0.7) k/uL Basophils # (0-0.2) k/uL PT (9.0-12.0) sec INR (<1.2) APTT (22.0-30.0) sec Sodium (137-145) mmol/L Potassium (3.5-5.1) mmol/L Chloride (98-107) mmol/L Carbon Dioxide (22-30) mmol/L Anion Gap mmol/L BUN (7-17) mg/dL Creatinine (0.52-1.04) mg/dL Est GFR (CKD-EPI)AfAm (>60 ml/min/1.73 sqM) Est GFR (CKD-EPI)NonAf (>60 ml/min/1.73 sqM) Glucose (74-99) mg/dL Plasma Lactic Acid [place] (0.7-2.0) mmol/L Calcium (8.4-10.2) mg/dL Magnesium (1.6-2.3) mg/dL Total Bilirubin (0.2-1.3) mg/dL AST (14-36) U/L ALT (9-52) U/L Alkaline Phosphatase (38-126) U/L Troponin I (0.000-0.034) ng/mL Total Protein (6.3-8.2) g/dL Albumin (3.5-5.0) g/dL Amylase (30-110) U/L Lipase (23-300) U/L Urine Color Light Yellow Urine Appearance Clear (Clear) Urine pH 6.5 (5.0-8.0) Ur Specific [place] 1.005 (1.001-1.035) Urine Protein Negative (Negative) Urine Glucose (UA) Negative (Negative) Urine Ketones Negative (Negative) Urine Blood Negative (Negative) Urine Nitrite Negative (Negative) Urine Bilirubin Negative (Negative) Urine Urobilinogen <2.0 (<2.0) mg/dL Ur Leukocyte Esterase Negative (Negative) Influenza Type A RNA Not Detected (Not Detectd) Influenza Type B (PCR) Not Detected (Not Detectd) Disposition Clinical Impression: Chronic pain, Major depression, Hypokalemia Disposition: HOME SELF-CARE Condition: Fair Is patient prescribed a controlled substance at d/c from ED?: No Referrals: Easton Tripathi DO [Primary Care Provider] - 1-2 days Time of Disposition: 10:39
[2018-07-04 09:27] LABS: Basophils % (A) 1 %; Eosinophils # (A) 0.4 k/uL (0-0.7); Eosinophils % (A) 8 %; HCT 38.5 % (34.0-46.0); HGB 12.1 gm/dL (11.4-16.0); Lymphocytes # (A) 0.8 k/uL (1.0-4.8); Lymphocytes % (A) 15 %; MCH 30.1 pg (25.0-35.0); MCHC 31.5 g/dL (31.0-37.0); MCV 95.7 fL (80.0-100.0); Mean Platelet Volume 6.3; Monocytes # (A) 0.3 k/uL (0-1.0); Monocytes % (A) 6 %; Neutrophils # (A) 3.7 k/uL (1.3-7.7); Neutrophils % (A) 69 %; Platelet Count 303 k/uL (150-450); RBC 4.02 m/uL (3.80-5.40); RDW 14.1 % (11.5-15.5); WBC 5.3 k/uL (3.8-10.6)
[2018-07-04] MEDS ORDERED: MORPHINE SULFATE 2 MG/ML SYRINGE IVP STA (09:28)
[2018-07-04 09:30] LABS: ALT 28 U/L (9-52); AST 25 U/L (14-36); Albumin 4.1 g/dL (3.5-5.0); Alkaline Phosphatase 165 U/L (38-126); Amylase 47 U/L (30-110); Anion Gap 11 mmol/L; Blood Urea Nitrogen 5 mg/dL (7-17); Calcium 10.3 mg/dL (8.4-10.2); Carbon Dioxide 26 mmol/L (22-30); Chloride 105 mmol/L (98-107); Glucose 118 mg/dL (74-99); Lipase 46 U/L (23-300); Sodium 142 mmol/L (137-145); Total Bilirubin 0.3 mg/dL (0.2-1.3); Total Protein 7.3 g/dL (6.3-8.2)
[2018-07-04] MEDS ORDERED: POTASSIUM CHLORIDE ER 20 MEQ TAB.ER PO STA (09:49)
--- NOTE | 2018-07-04 09:52 | XR ---
EXAMINATION TYPE: XR chest 2V DATE OF EXAM: 07/04/2018 COMPARISON: 06/25/2018 HISTORY: 68-year-old female with cough TECHNIQUE: PA and lateral views FINDINGS: Heart normal size. Aorta and pulmonary vasculature within normal limits. Prominent air within the sto mach likely accounting for slight asymmetric elevation of the left hemidiaphragm. Loop recorder devic e projects at the left base. No consolidation or pleural effusion. Redemonstrated T11 anterior wedgin g with accentuated thoracic kyphosis here. Partially visualized lumbar fusion hardware partially visu alized reversed left shoulder arthroplasty with distal clavicle resection. The visualized ACDF. IMPRESSION: No acute cardiopulmonary process. Slight asymmetric elevation of the left hemidiaphragm likely due to prominent anterior and stomach. Redemonstrated anterior wedging of T11 causing accentuation of the l ower thoracic kyphosis.
--- NOTE | 2018-07-04 09:53 | XR ---
EXAMINATION TYPE: XR KUB DATE OF EXAM: 07/04/2018 CLINICAL DATA: 68 year-old female abdominal pain/vomiting, [facility] COMPARISON: 10/28/2015 FINDINGS: Lung bases are clear. No evidence for free intraperitoneal air. Some scattered central and peripheral bowel gas is present. No differential air-fluid levels or dilat ed bowel. Prominent air and layering fluid in the stomach. L4-S1 posterior and interbody fusion hardw are. Stable phlebolith right side of the pelvis. IMPRESSION: Nonspecific, overall nonobstructive bowel gas pattern. No free air.
[2018-07-04] MEDS ORDERED: LISINOPRIL-HCTZ 20-12.5 MG 1 EACH TAB PO STA (10:10)
[2018-07-04 10:17] LABS: INR 0.9 (<1.2); Prothrombin Time 9.5 sec (9.0-12.0)
[2018-07-04 10:18] LABS: Appearance,Urine Clear (Clear); Bilirubin,Urine Negative (Negative); Blood,Urine Negative (Negative); Color,Urine Light Yellow; Glucose,Urine (UA) Negative (Negative); Ketones,Urine Negative (Negative); Leukocyte Esterase,Urine Negative (Negative); Nitrite,Urine Negative (Negative); PH, Urine 6.5 (5.0-8.0); Protein,Urine Negative (Negative); Specific Gravity,Urine 1.005 (1.001-1.035); Urobilinogen,Urine <2.0 mg/dL (<2.0)
[2018-07-04 10:20] LABS: Partial Thromboplastin Time 19.7 sec (22.0-30.0)
[2018-07-04 10:36] VITALS: RESP 18
[2018-07-04 11:31] VITALS: BP 137/105; PULSE 106; TEMP 97.5
== END 2018-07-04 11:30 | disposition home or self-care (01) ==
LOC: EC 08:23
DX: F32.9 Major depressive disorder, single episode, unspecified (principal); E87.6 Hypokalemia; R09.81 Nasal congestion; G89.29 Other chronic pain; R11.0 Nausea; R19.7 Diarrhea, unspecified; R10.9 Unspecified abdominal pain; M79.7 Fibromyalgia; M06.9 Rheumatoid arthritis, unspecified; M19.90 Unspecified osteoarthritis, unspecified site; E78.5 Hyperlipidemia, unspecified; F41.0 Panic disorder [episodic paroxysmal anxiety]; F43.10 Post-traumatic stress disorder, unspecified; Z87.891 Personal history of nicotine dependence; Z85.41 Personal history of malignant neoplasm of cervix uteri; Z85.3 Personal history of malignant neoplasm of breast; Z79.1 Long term (current) use of non-steroidal anti-inflammatories (NSAID); Z79.899 Other long term (current) drug therapy; Z88.2 Allergy status to sulfonamides; Z88.1 Allergy status to other antibiotic agents; Z91.040 Latex allergy status; Z88.8 Allergy status to other drugs, medicaments and biological substances; Z91.09 Other allergy status, other than to drugs and biological substances; Z90.12 Acquired absence of left breast and nipple; Z53.29 Procedure and treatment not carried out because of patient's decision for other reasons
CPT/HCPCS: 36415; 80053; 82150; 83605; 83690; 83735; 84484; 85025; 85610; 85730; 81003; 87040; 87502; 71046; 74018; 99284; 96374; 96361; J2270

== ENCOUNTER → 2018-08-19 | Outpatient (CLI) | payer MEDICARE ==
[2018-08-19 12:41] VITALS: BP 154/103; PULSE 88; RESP 16
--- NOTE | 2018-08-20 11:10 | P.PN ---
Subjective Progress Note Date: 08/19/18 This is follow-up visit for this patient with a history of severe and chronic neck pain pain and left shoulder pain diagnosed with cervical radiculopathy, and low back pain and she is diagnosed with lumbar spondylosis with lumbar facet arthropathy, more than a year ago we have done radiofrequency ablation of the medial branch lumbar area, and she is currently complaining of severe low back pain, Percocet ,75/325 every 6 hours, Neurontin 300 mg 3 times a day, Patient denies any side effects of the medication, denies excessive drowsiness or sleepiness, denies suicidal ideation, Patient denies any motor or sensory deficit , patient denies any fever or night sweats, denies any change in the bowel movements or urination, patient reported that she did not take her pain medication over the last 3 days because she was given prescription for one month 's , and the last time she was seen in the pain clinic for Physical Examinations : 1-Constitutional : Cooperative , not in acute distress . 2-HEENT : nech ; supple , no Lymphadenopathy , no Thyromegaly , normal thyroid size . eyes : no ptosis , no icterus, no photophobia . ENT : normal of hearing , normal oropharynx , no Thrush . 3- Respiratory : Chest clear to auscultations Bilaterally , no wheezing , no Rhonchi . 4- Cardiovascular : regular rate and rhythem , S1 , S2 , no S3 , no S4. 5- Gastrointestinal : abdomen soft no tenderness , bowel sounds positive all four quadrents , no organomegally . 6- Genitourinary : Defferred . 7- neurologic: Cranial nerve II to XII intact , no focal neurological deffecit . 8- Psychatric: alert , oriented X 3 , appropriate affect , intact judgment and insight . 9- Lymphatic : no Lymphadenopathy . 10- Musculoskeltal : Normal motor strength in the lower extremity bilaterally Straight leg raising test positive at 60 bilaterally Lakhwinder's test positive bilaterally. Facet loading test positive bilaterally Assessment and plan = Chronic low back pain secondary to lumbar spondylosis with facet arthropathy without myelopathy, patient had a good result after the radiofrequency ablation of the medial branch , done more than a year ago She will be good candidate to have a repeat radiofrequency ablation L2-3, L3 4, L4 5 ,Rt first then Left later on , chronic and current use of high-risk medication (Opioids). The patient was counseled about risk of opioid use, psychological risk associated with opioids and was orally counseled to not overuse , divert,or sell dictations to take medications as prescribed only , and to restore medication in safe location , the patient counseled against driving while using narcotic medications , and also not to use alcohol or any illicit recreational drugs, patient's verbalized understanding that the lack of compliance will result in failure to renew narcotic prescription and possible discharge from the clinic - diagnoses, prognosis, and treatment options including but not limited to physical therapy, surgical interventions, interventional therapies , and medication management including narcotics and adjuvant medication were discussed with the patient and all the questions answered Medication management= patient reporte, that the last time she took Percocet was more than 2 days ago, we'll order a urine drug screen MAPS reviewed and it was appropriate, Prescription refill for Percocet 7.5/325 every 6 hours dispense 120 , Neurontin 300 mg twice a day, patient could benefit from Mobic 7.5 mg twice a day, PQRS Measure Charge Sheet Measure #130: Documentation of Current Meds in Medical Chart: Patient's medications documented in chart Measure #226: Tobacco Use: Screen & Cessation Intervention: Pt not a tobacco user Measure #111: Pneumonia Vaccination: Pneumococcal vaccine administered or previously received Measure #47: Advance Care Plan: Advance care planning discussed & documented, pt chose/unable to give Measure #412: Opioid Treatment Agreement: Documented signed opioid trtmnt agreemnt min once during opioid trtmnt Measure #408: Opioid Therapy Follow-up Evaluation: Patient had f/u eval minimum every 3 months during opioid therapy Measure #317: Preventitive Care & Scrn High Bld Press & F/U: Pre-hypertensive or hypertensive BP documented, pt will f/u with PCP Measure #128: Body Mass Index (BMI) Screening & Follow-up: BMI documented within normal parameters - f/u documented Measure #131: Pain Assessment & Follow-up: Pain positive & plan documented, Follow-up scheduled Measure #431: Unhealthy Alcohol Use Preventative Care & Scrn: Patient not identified as an unhealthy alcohol user PQRS Narrative: - Controlled Substance Measures Is patient prescribed a controlled substance at discharge?: Yes When asked, does pt state using other controlled substances?: No If prescribed controlled substance>3 days was MAPS reviewed?: Yes If Rx opioid, was Start Talking consent form obtained?: Yes If opioid is for acute pain is fill amount 7 days or less?: No Was information provided regarding opioid addiction?: Yes Objective - Vital Signs Vital signs: Vital Signs Temp Pulse 88 08/19/18 12:35 Resp 16 08/19/18 12:35 BP 154/103 08/19/18 12:35 Pulse Ox Intake & Output 08/19/18 08/20/18 08/20/18 18:59 06:59 18:59 Weight 54.431 kg
== END ==
LOC: PNWHC3 12:22
PROVIDERS: ATTEND Specialist
DX: G89.29 Other chronic pain (principal); M47.816 Spondylosis without myelopathy or radiculopathy, lumbar region; M46.96 Unspecified inflammatory spondylopathy, lumbar region; Z79.891 Long term (current) use of opiate analgesic; Z79.899 Other long term (current) drug therapy
CPT/HCPCS: 80307; G0482; G0463; 99211

== ENCOUNTER → 2018-10-22 | Outpatient (CLI) | payer MEDICARE ==
[2018-10-22 11:35] VITALS: BP 151/96; PULSE 77; RESP 18; TEMP 98.2
--- NOTE | 2018-10-22 11:54 | P.PAINPG ---
Subjective Progress Note Date: 10/22/18 Joya presents today for a follow-up. She has a chronic history of low back pain as well as neck pain. She continues to complain of pain across the low back and in her neck. She reports that her low back pain is the worst. She has pain across the low back and sometimes into the legs. She reports that she has fibromyalgia has pain around her body. She denies any side effects from the current medication regimen which includes Percocet 7.5 mg 3-4 times per day. Objective - Vital Signs Vital signs: Vital Signs Temp 98.2 F 10/22/18 11:27 Pulse 77 10/22/18 11:27 Resp 18 10/22/18 11:27 BP 151/96 10/22/18 11:27 Pulse Ox 98 10/22/18 11:27 Intake & Output 10/21/18 10/22/18 10/22/18 18:59 06:59 18:59 Weight 52.163 kg - Exam General: Awake and alert oriented 3 no distress Respiratory exam: No audible wheezing no accessory muscle usage Cardiovascular exam: regular rate, palpable bilateral pulses, no lower extremity edema Abdominal exam: No distention nontender to palpation Cervical spine: Surgical scars are well-healed, Normal alignment, Spurling's negative, facet loading negative, Senior Catering Sales [employer] strength is 5/5, robles negative Lumbar spine: Surgical scar is well-healed, Loss of lumbar lordosis, with an increase in thoracic kyphosis normal alignment, tender to palpation over bilateral paraspinal muscles, facet loading is positive bilaterally. Straight leg raise is negative. Limited range of motion due to pain with flexion, extension and side bending. Sacroiliac joints: Nontender to palpation, SHONDA is negative, [place] negative Neuro exam: Normal sensation in bilateral upper extremities, deep tendon reflexes are 2+ bilateral upper extremities. Normal sensation in bilateral lower extremities. Deep tendon reflexes are 2+ in lower extremities Psych exam: Cooperative, appropriate mood Assessment and Plan Assessment: #1 lumbar spondylosis without myelopathy #2 opioid dependence #3 lumbar postlaminectomy Plan: I discussed with the patient medication usage has been appropriate and she should work on decreasing the pain medications. Her last urine drug screen was in August and was appropriate. She takes Percocet 3-4 tablets per day. She would like to repeat the lumbar radiofrequency ablation that she had in 2017. We'll schedule to have that done on both sides at the L4 5 and L5-S1 levels. We will follow up with the patient 2 months time PQRS Measure Charge Sheet Measure #130: Documentation of Current Meds in Medical Chart: Patient's medications documented in chart Measure #226: Tobacco Use: Screen & Cessation Intervention: Pt not a tobacco user Measure #111: Pneumonia Vaccination: Pneumococcal vaccine administered or previously received Measure #47: Advance Care Plan: Advance care planning discussed & documented, plan or surrogate given Measure #408: Opioid Therapy Follow-up Evaluation: Patient had f/u eval minimum every 3 months during opioid therapy Measure #317: Preventitive Care & Scrn High Bld Press & F/U: Normal blood pressure, f/u not required Measure #128: Body Mass Index (BMI) Screening & Follow-up: BMI documented within normal parameters Measure #131: Pain Assessment & Follow-up: Pain positive & plan documented, Follow-up scheduled Measure #431: Unhealthy Alcohol Use Preventative Care & Scrn: Patient not identified as an unhealthy alcohol user PQRS Narrative: Smoking Status Former smoker Do You Want the Pneumonia Vaccine Up to Date Vaccine AT THIS TIME? Narcotic Agreement Date Signed 08/19/18 Blood Pressure 151/96 Pain Intensity [Left Shoulder] 7 Pain Intensity [Lower Back] 7 Hx Alcohol Use (MH) No Home Medications: Ambulatory Orders buPROPion XL [Wellbutrin XL] 150 mg PO DAILY 02/04/16 Venlafaxine HCl [Effexor XR] 225 mg PO DAILY 03/02/17 Cholecalciferol [Vitamin D3 (25 Mcg = 1000 Iu)] 2,000 unit PO DAILY 10/26/17 Atorvastatin [Lipitor] 40 mg PO HS 03/17/18 Lisinopril-Hctz 20-12.5 mg [Zestoretic 20-12.5] 1 tab PO DAILY 03/17/18 oxyCODONE HCL/ACETAMINOPHEN [Percocet 7.5-325 mg] 1 tab PO Q6HR PRN 30 Days #120 tab 04/08/18 Meloxicam [Mobic] 15 mg PO DAILY 06/25/18 Sennosides-Docusate Sodium [Senokot-S] 1 tab PO BID PRN 06/25/18 Gabapentin [Neurontin] 300 mg PO BID 08/19/18 Controlled Substance Measures - Controlled Substance Measures Is patient prescribed a controlled substance at discharge?: Yes When asked, does pt state using other controlled substances?: No If prescribed controlled substance>3 days was MAPS reviewed?: Yes If Rx opioid, was Start Talking consent form obtained?: Yes If opioid is for acute pain is fill amount 7 days or less?: No Was information provided regarding opioid addiction?: Yes
== END | disposition home or self-care (01) ==
LOC: PNWHC3 11:23
PROVIDERS: ATTEND Hospitalist
DX: G89.29 Other chronic pain (principal); M47.816 Spondylosis without myelopathy or radiculopathy, lumbar region; M96.1 Postlaminectomy syndrome, not elsewhere classified; Z87.891 Personal history of nicotine dependence; Z79.891 Long term (current) use of opiate analgesic
CPT/HCPCS: 99211

== ENCOUNTER 2018-11-05 09:43 | Day surgery (SDC) | payer MEDICARE ==
[2018-10-31 15:09] VITALS: BMI 19.7
[2018-11-05 09:58] VITALS: TEMP 96.8
--- NOTE | 2018-11-05 10:09 | P.PCN ---
Date of Procedure: 11/05/18 Anesthesia: MAC Description of Procedure: PREOPERATIVE DIAGNOSIS: Lumbar Facet Arthropathy. POSTOPERATIVE DIAGNOSIS: Lumbar Facet Arthropathy. PROCEDURES: Bilateral Radiofrequency thermocoagulation of L4 5 L5-S1 medial bra nches, with fluoroscopic guidance ANESTHESIA: IV sedation with versed and fentanyl and local infiltration with lidocaine 1% 20 ml PROCEDURE INDICATION: The patient with low back pain secondary to lumbar facet arthropathy who had more than 50% relief of pain with previous diagnostic lumbar medial branch block with local anesthetic. PROCEDURE DESCRIPTION / TECHNIQUE: The patient was seen and identified in the preoperative area. Risks, benefits, complications, including but not limited to risk of infection ,bleeding , allergic reactions to the medications and no complete pain relief , and alternatives were discussed with the patient, the patient agreed to proceed with the procedure and signed the consent. IV was sta rted. Vital signs remained stable throughout the procedure. Patient was taken to the OR and time out was completed. The patient was placed in the prone position on the procedure table. The lumber area was prepped and draped in the usual sterile fashion. . Vital signs were closely monitored during the procedure. IV sedation was used during the procedure to decrease patient anxiety. Using AP and then oblique fluoroscopy, the eye of the Duane dog corresponding to the connection between the superior and transverse articular processes of L4, L5, S1 were identified, marked, and localized with 1% lidocaine. Subsequently, a 20 -zm radiofrequency cannula with a 10-mm active tip was advanced guided by fluoroscopy to the junction of the pedicle and transverse process of each identified level. Each site then underwent sensory testing at 50 Hz and 0 to 1 volt and motor testing at 2.5 Hz and 0 to 3 volt with local stimulation, no radicular symptoms sensed by the patient and no obvious motor stimulation noted. Thereafter the tested sites underwent radiofrequency thermocoagulation at 80 degrees celsius for 90 seconds after injecting 1 ml of PF lidocaine 1%. Then after the thermocoagulation was done, 1 ml of the block solution containing ropivaciane 0.5% was injected at the lesioned sites after negative aspiration of CSF and blood and with no paresthesias. Cannulas were retracted. At the end of the procedure, the skin was cleansed and bandages were applied. COMPLICATIONS: No acute complications. DISPOSITION / PLANS: The patient was placed in a supine position and transferred to the recovery area in a stable condition for observation and was discharged from the recovery room after meeting discharge criteria. Home discharge instructions given to the patient by the staff. The patient was reexamined prior to discharge. Patient will follow up as directed.
[2018-11-05] MEDS ORDERED: LIDOCAINE 1% 20 ML VIAL (10MG/ML) FOR IV START INTRADERMA ONE (10:10)
[2018-11-05] MEDS ORDERED: LACTATED RINGERS 1,000 ML IV ONE (10:10)
[2018-11-05] MEDS ORDERED: IV FLUID CONTINUATION 650 ML IV ONE (10:50)
--- NOTE | 2018-11-05 10:56 | FL ---
EXAMINATION TYPE: FL guided pain mgmt statistic DATE OF EXAM: 11/05/2018 HISTORY: Flouroscopy time 11 seconds of fluoroscopy provided. IMPRESSION: 1. Fluoroscopy time.
[2018-11-05 11:13] VITALS: BP 133/84; PULSE 78; RESP 16
== END 2018-11-05 11:20 | disposition home or self-care (01) ==
LOC: ORPAIN 09:43
PROVIDERS: ATTEND Hospitalist
DX: M47.816 Spondylosis without myelopathy or radiculopathy, lumbar region (principal); M96.1 Postlaminectomy syndrome, not elsewhere classified; M54.2 Cervicalgia; K21.9 Gastro-esophageal reflux disease without esophagitis; J44.9 Chronic obstructive pulmonary disease, unspecified; Z98.1 Arthrodesis status; Z78.0 Asymptomatic menopausal state; Z79.891 Long term (current) use of opiate analgesic; Z79.1 Long term (current) use of non-steroidal anti-inflammatories (NSAID); Z79.899 Other long term (current) drug therapy; Z87.891 Personal history of nicotine dependence; Z88.1 Allergy status to other antibiotic agents; Z88.2 Allergy status to sulfonamides; Z88.8 Allergy status to other drugs, medicaments and biological substances
CPT/HCPCS: 64635; 64636; J2001; 99153

== ENCOUNTER → 2018-12-17 | Outpatient (CLI) | payer MEDICARE ==
[2018-12-17 13:01] VITALS: BP 136/75; PULSE 66; RESP 22
--- NOTE | 2018-12-17 13:38 | P.PN ---
Subjective Progress Note Date: 12/17/18 This is follow-up visit for this 68 years old female with a history of severe and chronic neck pain pain and and low back pain, she is diagnosed with lumbar spondylosis with lumbar facet arthropathy, recently we have done radiofrequency ablation of the medial branch lumbar area, and she reported to her low back pain improves completely, and currently she is having neck pain, without any radiation to the upper extremity, patient reported that she had a history of cervical fusion done several years ago, and she had also left upper extremity secondary surgery She reported that the neck pain is constant and increases with any neck movement, she denies any motor or sensory deficit Patients currently on, Percocet 7.5/325 every 6 hours, Neurontin 300 mg twice a day, Patient denies any side effects of the medication, denies excessive drowsiness or sleepiness, denies suicidal ideations Patient denies any motor or sensory deficit , patient denies any fever or night sweats, denies any change in the bowel movements or urination Physical Examinations : -Constitutiona : Cooperative , not in acute distress . -HEENT : nech : supple , no Lymphadenopathy , normal thyroid size . eyes : no ptosis , no icterus, no photophobia . ENT : normal of hearing , normal oropharynx , no Thrush . - Respiratory : Chest clear to auscultations Bilaterally , no wheezing , no Rhonchi . - Cardiovascula : regular rate and rhythem , S1 , S2 , no S3 , no S4. - Gastrointestina : abdomen soft no tenderness , bowel sounds , no organomegally . - Genitourinary : Defferred . - neurologic : Cranial nerve II to XII intact , no focal neurological deffecit . -psychatric : alert , oriented X 3 , appropriate affect , intact judgment and insight . -Lymphatic : no Lymphadenopathy . - musculoskeltal : Cervical Spine motor stregnth in the deltoid and biceps, normal right side , normal Left side motor stregnth biceps and the wrist extensors normal right side ,normal left side . motor stregnth in the triceps muscle . normal Right side , normal Left side deep tendon reflexes normal at the biceps , normal at Brachioradialis , normal at triceps. cervical facet loading test: Positive Bilaterally Spurling test positive bilaterally. Neck distraction test positive bilaterally. Zeus sign positive bilaterally. Lumber spine moter stegnth lower extremities ,thigh and legs 5/5 Right side , 5/5 Left kisha Assessment and plan = Cervical spondylosis, history of cervical fusion surgery chronic and current use of high-risk medication (Opioids). The patient was counseled about risk of opioid use, psychological risk associated with opioids and was orally counseled to not overuse , divert,or sell dictations to take medications as prescribed only , and to restore medication in safe location , the patient counseled against driving while using narcotic medications, and also not to use alcohol or any illicit recreational drugs, patient's verbalized understanding that the lack of compliance will result in failure to renew narcotic prescription and possible discharge from the clinic - diagnoses, prognosis, and treatment options including but not limited to physical therapy, surgical interventions, interventional therapies , and medication management including narcotics and adjuvant medication were discussed with the patient and all the questions answered Medication management= prescription for Percocet 7.5/325 every 6 hours dispense 120 and there is no refill, Prescription refill for Neurontin 300 mg twice a day MAPS reviewed and it was appropriate, she will follow up with the pain clinic in 1 months I will order MRI of the cervical spine with and without contrast, Patient will follow up in the pain clinic in 1 month's, and we will review the MRI report PQRS Measure Charge Sheet Measure #130: Documentation of Current Meds in Medical Chart: Patient's medications documented in chart Measure #226: Tobacco Use: Screen & Cessation Intervention: Pt not a tobacco user Measure #111: Pneumonia Vaccination: Pneumococcal vaccine administered or previously received Measure #47: Advance Care Plan: Advance care planning discussed & documented, pt chose/unable to give Measure #412: Opioid Treatment Agreement: Documented signed opioid trtmnt agreemnt min once during opioid trtmnt Measure #408: Opioid Therapy Follow-up Evaluation: Patient had f/u eval minimum every 3 months during opioid therapy Measure #317: Preventitive Care & Scrn High Bld Press & F/U: Blood pressure 136/75 within normal limits BP documented, pt will f/u with PCP Measure #128: Body Mass Index (BMI) Screening & Follow-up: BMI documented BELOW normal parameters - f/u documented Measure #131: Pain Assessment & Follow-up: Pain positive & plan documented, Follow-up scheduled Measure #431: Unhealthy Alcohol Use Preventative Care & Scrn: Patient not identified as an unhealthy alcohol user PQRS Narrative: - Controlled Substance Measures Is patient prescribed a controlled substance at discharge?: Yes When asked, does pt state using other controlled substances?: No If prescribed controlled substance>3 days was MAPS reviewed?: Yes If Rx opioid, was Start Talking consent form obtained?: Yes If opioid is for acute pain is fill amount 7 days or less?: No Was information provided regarding opioid addiction?: Yes Objective - Vital Signs Vital signs: Vital Signs Temp Pulse 66 12/17/18 12:56 Resp 22 12/17/18 12:56 BP 136/75 12/17/18 12:56 Pulse Ox 98 12/17/18 12:56 Intake & Output 12/16/18 12/17/18 12/17/18 18:59 06:59 18:59 Weight 52.617 kg
== END | disposition home or self-care (01) ==
LOC: PNWHC3 12:36
PROVIDERS: ATTEND Specialist
DX: G89.29 Other chronic pain (principal); M47.812 Spondylosis without myelopathy or radiculopathy, cervical region; Z98.1 Arthrodesis status; Z98.890 Other specified postprocedural states; Z79.891 Long term (current) use of opiate analgesic
CPT/HCPCS: 99211

== ENCOUNTER 2018-12-29 20:08 | Emergency (ER) | payer MEDICARE ==
[2018-12-29] MEDS ORDERED: SODIUM CHLORIDE 0.9% 1,000 ML IV STA (20:37)
[2018-12-29] MEDS ORDERED: diphenhydrAMINE 50 MG/ML 1 ML VIAL IVP STA (20:48)
[2018-12-29] MEDS ORDERED: ONDANSETRON 4 MG/2 ML VIAL IVP STA (20:48)
[2018-12-29] MEDS ORDERED: KETOROLAC 30 MG/ML 1 ML VIAL IVP STA (20:48)
--- NOTE | 2018-12-29 20:51 | ED ---
General Adult HPI - General Chief complaint: Neuro Symptoms/Deficit Stated complaint: Facial numbness Time Seen by Provider: 12/29/18 20:22 Source: patient Mode of arrival: ambulatory Limitations: no limitations - History of Present Illness Initial comments: Dictation was produced using [employer] dictation software. please excuse any gram matical, word or spelling errors. Chief Complaint: 68-year-old female presents with multiple complaints. History of Present Illness: 68-year-old female she states that she has multiple comorbidities including fibromyalgia musculoskeletal disease or ARTHRITIS syncope. She presents today with headache. She is a history of migraines. She reports that she has history of yojana-plegic migraines. She states today that she has some numbness in her right upper and lower face. States his headache is somewhat to her usual headaches however slightly different. She states that she feels weird because she's been stumbling. She does complain of some difficulty is with a right upper extremity. Per the reason of why she is here is because she is worried she is having a stroke. She also complains of chest pain and shortness of breath. She reports that this pain is a discomfort to the anterior chest. Denies any diaphoresis radiation to the shoulder or jaw. Patient has no history of coronary artery disease. Patient also reports being short of breath. She has no history of pulmonary emboli. She is brought here by her neighbor. The ROS documented in this emergency department record has been reviewed and confirmed by me. Those systems with pertinent positive or negative responses have been documented in the HPI. All other systems are other negative and/or noncontributory. PHYSICAL EXAM: General Impression: Alert and oriented x3, not in acute distress HEENT: Normocephalic atraumatic, extra-ocular movements intact, pupils equal and reactive to light bilaterally, mucous membranes moist. Cardiovascular: Heart regular rate and rhythm, S1&S2 audible, no murmurs, rubs or gallops Chest: Lungs clear to auscultation bilaterally, no rhonchi, no wheeze, no rales Abdomen: Bowel sounds present, abdomen soft, non-tender, non-distended, no organomegaly Musculoskeletal: Pulses present and equal in all extremities, no peripheral edema Motor: no focal deficits noted Neurological: CN II-XII grossly intact, no focal motor or sensory deficits noted Skin: Intact with no visualized rashes Psych: Normal affect and mood ED course: 68-year-old female multiple complaints. No click suspicion of stroke at this time given that patient's neurologic symptoms involve the upper face. Patient also has history of these hemiplegic migraines. Laboratory evaluation obtained. CBC unremarkable. Metabolic panel is negative. Patient has elevated BUN/creatinine ratio at this could reflect dehydration. Enzymes negative. Chest x-ray is nonacute. Patient given headache cocktail and intravenous fluids. She is reevaluated at bedside with stable medical condition. She reports that her headache is improving. Reassurance is provided. Patient was to follow-up with her primary care physician regarding her complaints today. This point there is no indication for further workup or intervention. Return parameters discussed. Patient clear for discharge. EKG interpretation: Ventricular rate 76, normal sinus rhythm, AK interval 142, care is 84, QTC 42. No AK prolongation, no QTC prolongation, no ST or T-wave changes noted. Overall, this EKG is unremarkable - Related Data Home Medications Medication Instructions Recorded Confirmed buPROPion XL [Wellbutrin XL] 150 mg PO DAILY 02/04/16 12/29/18 Venlafaxine HCl [Effexor XR] 225 mg PO DAILY 03/02/17 12/29/18 Cholecalciferol [Vitamin D3 (25 2,000 unit PO DAILY 10/26/17 12/29/18 Mcg = 1000 Iu)] Atorvastatin [Lipitor] 40 mg PO HS 03/17/18 12/29/18 Lisinopril-Hctz 20-12.5 mg 1 tab PO DAILY 03/17/18 12/29/18 [Zestoretic 20-12.5] Sennosides-Docusate Sodium 1 tab PO BID PRN 06/25/18 12/29/18 [Senokot-S] Previous Rx's Medication Instructions Recorded Gabapentin [Neurontin] 300 mg PO BID #60 capsule 12/17/18 oxyCODONE HCL/ACETAMINOPHEN 1 tab PO Q6HR PRN 30 Days #120 tab 12/17/18 [Percocet 7.5-325 mg] Allergies Allergy/AdvReac Type Severity Reaction Status Date / Time Sulfa (Sulfonamide Allergy Severe Rash/Hives Verified 12/29/18 20:52 Antibiotics) Tetracyclines Allergy Severe Rash/Hives Verified 12/29/18 20:52 latex Allergy Rash/Hives Verified 12/29/18 20:52 lorazepam [From Ativan] AdvReac Confusion Verified 12/29/18 20:52 TIDE AND EXTRA LAUNDRY SOAP Allergy Rash/Hives Uncoded 12/29/18 20:52 Review of Systems ROS Statement: Those systems with pertinent positive or pertinent negative responses have been documented in the HPI. ROS Other: All systems not noted in ROS Statement are negative. Past Medical History Past Medical History: Cancer, COPD, Fibromyalgia, GI Bleed, Hyperlipidemia, Musculoskeletal Disorder, Osteoarthritis (OA), Rheumatoid Arthritis (RA), Syncope Additional Past Medical History / Comment(s): COPD, hyperlipidemia, rheumatoid arthritis, chronic pain related to a humeral fracture with subsequent injury to her, T11 spinal fracture, previous history of humeral fracture, history of rest cancer, history of cervical cancer, chronic back pain, migraines, recurrent falls, chronic narcotic medication dependence, fibromyalgia, previous history of GI bleed, osteoarthritis History of Any Multi-Drug Resistant Organisms: None Reported Past Surgical History: Section, Hysterectomy, Orthopedic Surgery, Tonsillectomy Additional Past Surgical History / Comment(s): Cervical and Lumbar fusion; ORIF of Humerus with carlos and screws. lt breast lumpectomy 2001, 2ND lumpectomy [place] 2003 was [place]. Breast Reduction 2009.-had non healing wound afterwards then had wound closure and skin graft,Left breast mastectomy 2016, RT tympanoplasty. D&C. EXC Cataract RITU. Jarek Fundoplasty for hernia, removal of hardware from left shoulder, loop recorder 2013, PAIN CLINIC PROCEDURE Past Anesthesia/Blood Transfusion Reactions: No Reported Reaction, Unable to Obtain, Family History of Problems w/ Anesthesia Additional Past Anesthesia/Blood Transfusion Reaction / Comment(s): SISTER TAKES LONGER TO AWAKEN, YEARS AGO. Past Psychological History: Anxiety, Depression, Panic Disorder, PTSD Smoking Status: Former smoker Past Alcohol Use History: None Reported Past Drug Use History: None Reported - Past Family History Father Family Medical History: Congestive Heart Failure (CHF), COPD Additional Family Medical History / Comment(s): at age 72 Mother Family Medical History: Myocardial Infarction (OR) Additional Family Medical History / Comment(s): 1987 age 57 mi General Exam Limitations: no limitations Course Vital Signs 12/29/18 12/29/18 12/29/18 20:18 20:58 21:12 Temperature 97.9 F 98.4 F Pulse Rate 81 72 Pulse Rate [ 88 Bilateral Tree Surgeon Helper ] Respiratory 18 18 Rate Blood Pressure 139/93 130/89 O2 Sat by Pulse 100 100 Oximetry 12/29/18 12/29/18 21:20 22:06 Temperature 97.9 F Pulse Rate 74 Pulse Rate [ Bilateral Tree Surgeon Helper ] Respiratory 20 18 Rate Blood Pressure 108/72 O2 Sat by Pulse 100 Oximetry Medical Decision Making - Lab Data Result diagrams: 12/29/18 20:55 12/29/18 20:55 Lab Results 12/29/18 12/29/18 12/29/18 Range/Units 20:55 20:55 20:55 WBC 8.7 (3.8-10.6) k/uL RBC 4.04 (3.80-5.40) m/uL Hgb 12.6 (11.4-16.0) gm/dL Hct 38.3 (34.0-46.0) % MCV 94.9 (80.0-100.0) fL MCH 31.2 (25.0-35.0) pg MCHC 32.8 (31.0-37.0) g/dL RDW 12.9 (11.5-15.5) % Plt Count 223 (150-450) k/uL Neutrophils % 61 % Lymphocytes % 26 % Monocytes % 7 % Eosinophils % 2 % Basophils % 0 % Neutrophils # 5.3 (1.3-7.7) k/uL Lymphocytes # 2.3 (1.0-4.8) k/uL Monocytes # 0.6 (0-1.0) k/uL Eosinophils # 0.2 (0-0.7) k/uL Basophils # 0.0 (0-0.2) k/uL Sodium 142 (137-145) mmol/L Potassium 4.3 (3.5-5.1) mmol/L Chloride 104 (98-107) mmol/L Carbon Dioxide 27 (22-30) mmol/L Anion Gap 11 mmol/L BUN 25 H (7-17) mg/dL Creatinine 0.64 (0.52-1.04) mg/dL Est GFR (CKD-EPI)AfAm >90 (>60 ml/min/1.73 sqM) Est GFR (CKD-EPI)NonAf >90 (>60 ml/min/1.73 sqM) Glucose 99 (74-99) mg/dL Calcium 11.1 H (8.4-10.2) mg/dL Magnesium 1.9 (1.6-2.3) mg/dL Troponin I <0.012 (0.000-0.034) ng/mL Disposition Clinical Impression: Well adult health check Disposition: HOME SELF-CARE Condition: Good Is patient prescribed a controlled substance at d/c from ED?: No Referrals: Easton Tripathi DO [Primary Care Provider] - 1-2 days Time of Disposition: 22:38
[2018-12-29 21:30] LABS: Basophils % (A) 0 %; Eosinophils # (A) 0.2 k/uL (0-0.7); Eosinophils % (A) 2 %; HCT 38.3 % (34.0-46.0); HGB 12.6 gm/dL (11.4-16.0); Lymphocytes # (A) 2.3 k/uL (1.0-4.8); Lymphocytes % (A) 26 %; MCH 31.2 pg (25.0-35.0); MCHC 32.8 g/dL (31.0-37.0); MCV 94.9 fL (80.0-100.0); Mean Platelet Volume 7.7; Monocytes # (A) 0.6 k/uL (0-1.0); Monocytes % (A) 7 %; Neutrophils # (A) 5.3 k/uL (1.3-7.7); Neutrophils % (A) 61 %; Platelet Count 223 k/uL (150-450); RBC 4.04 m/uL (3.80-5.40); RDW 12.9 % (11.5-15.5); WBC 8.7 k/uL (3.8-10.6)
--- NOTE | 2018-12-29 21:32 | XR ---
EXAMINATION TYPE: XR chest 2V DATE OF EXAM: 12/29/2018 COMPARISON: Chest x-ray July 04, 2018 HISTORY: Left-sided chest pain. TECHNIQUE: Frontal and lateral views of the chest are obtained. FINDINGS: There is chronic parenchymal change without suspicious focal air space opacity, pleural ef fusion, or pneumothorax seen. The cardiac silhouette size remains within normal limits. Loop record er overlies the anterior lower lateral thorax. The osseous structures are demineralized. Underlying s coliosis is present. Exaggerated kyphosis is seen. Surgical change to left shoulder and cervical spin e is partially imaged. IMPRESSION: Chronic changes without acute pulmonary process.
[2018-12-29 21:48] LABS: African American GFR (CKD) >90 (>60 ml/min/1.73 sqM); Anion Gap 11 mmol/L; Blood Urea Nitrogen 25 mg/dL (7-17); Calcium 11.1 mg/dL (8.4-10.2); Carbon Dioxide 27 mmol/L (22-30); Chloride 104 mmol/L (98-107); Glucose 99 mg/dL (74-99); Magnesium 1.9 mg/dL (1.6-2.3); Potassium 4.3 mmol/L (3.5-5.1); Sodium 142 mmol/L (137-145)
[2018-12-29 22:08] VITALS: BP 108/72; PULSE 74; RESP 18; TEMP 97.9
== END 2018-12-29 22:50 | disposition home or self-care (01) ==
LOC: EC 20:08
DX: R20.0 Anesthesia of skin (principal); R51 Headache; R07.89 Other chest pain; R06.02 Shortness of breath; R79.89 Other specified abnormal findings of blood chemistry; E78.5 Hyperlipidemia, unspecified; F41.9 Anxiety disorder, unspecified; F32.9 Major depressive disorder, single episode, unspecified; F43.10 Post-traumatic stress disorder, unspecified; Z86.69 Personal history of other diseases of the nervous system and sense organs; Z87.09 Personal history of other diseases of the respiratory system; Z85.41 Personal history of malignant neoplasm of cervix uteri; Z87.891 Personal history of nicotine dependence; Z79.899 Other long term (current) drug therapy; Z88.2 Allergy status to sulfonamides; Z88.1 Allergy status to other antibiotic agents; Z91.040 Latex allergy status; Z88.8 Allergy status to other drugs, medicaments and biological substances; Z91.048 Other nonmedicinal substance allergy status
CPT/HCPCS: 36415; 93005; 80048; 83735; 84484; 85025; 71046; 99284; 96374; 96375 ×2; 96361; J1200; J2405; J1885

== ENCOUNTER → 2019-01-10 | Outpatient (CLI) | payer MEDICARE ==
--- NOTE | 2019-01-10 15:09 | MR ---
EXAMINATION TYPE: MR cervical spine wo/w con DATE OF EXAM: 01/10/2019 2:32 PM COMPARISON: NONE HISTORY: No prior, neck pain, CASTILLO, weakness to left arm, hx of sx, hx of breast [place] 2003 CONTRAST: The patient was injected with 5.5ml mL intravenous Gadavist gadolinium contrast. Multiplanar MultiSpin echo imaging of the cervical spine was performed. C2-C3: No evidence for degenerative disc disease. No disc bulge/herniation or protrusion. No Canal stenosis. Foramina are patent bilaterally. C3-C4: Postoperative changes of anterior cervical discectomy and fusion. Anterior fixation plate and screws in place. Alignment anatomic. No evidence for recurrent or residual disease. Foramina are nguyen nt. C4-C5: Postoperative changes of anterior cervical discectomy and fusion. Anterior fixation plate and screws in place. Alignment anatomic. No evidence for recurrent or residual disease. Mild right forami nal encroachment noted. C5-C6: Mild to moderate disc desiccation. Mild posterior disc bulge. No central stenosis or herniatio n. No foraminal encroachment identified. C6-C7: Moderate disc desiccation. Right paracentral broad-based disc herniation effaces the ventral t hecal sac. No definite ventral cord contact no central stenosis. Right greater than left foraminal en croachment at this level. C7-T1: Grade 1 anterolisthesis C7 on T1 of 2 mm. Moderate disc desiccation. Mild posterior disc bulge . No definite central stenosis at this time. No cervical spine fracture. There is normal alignment. Cervical spinal cord is of normal signal. C raniovertebral junction relationships are within normal limits. No pathologic enhancement. IMPRESSION: 1. Postoperative changes of ACDF at C3-4 and C4-5 without evidence for recurrent or residual disease. Mild right foraminal encroachment suggested at C4-5. 2. Multilevel degenerative disc disease. Broad-based subligamentous disc herniation noted at 6 7 as d iscussed above.
== END | disposition home or self-care (01) ==
LOC: RADMRIMAIN 13:51
PROVIDERS: ATTEND Specialist
DX: M50.223 Other cervical disc displacement at C6-C7 level (principal); M50.30 Other cervical disc degeneration, unspecified cervical region; Z98.890 Other specified postprocedural states
CPT/HCPCS: 72156; A9585

== ENCOUNTER → 2019-01-20 | Outpatient (CLI) | payer MEDICARE ==
[2019-01-20 11:56] VITALS: BP 133/85; PULSE 77; RESP 16
--- NOTE | 2019-01-20 15:35 | P.PAINPG ---
Subjective Progress Note Date: 01/20/19 This is a follow-up visit for this 68 years old female with a history of severe and chronic neck pain pain and and low back pain. She was last seen in clinic about a month ago and at that time a cervical MRI was ordered. Results below. Patient returns to discuss MRI results and further treatment options. Today she reports that the majority of her pain is in the right side of her neck radiating to right shoulder. She denies numbness or tingling. She does report dropping objects from her right hand. She also reports pain in "her whole back". She notes that she has new onset of pain which began about 1.5 months ago in her right low back radiating to right buttock, right groin, down the f ront of her right thigh. She describes this as an electric shock. Pain does not radiate past the knee. She reports that she underwent left shoulder arthroplasty in May 2018 and is recovering well from this. She reports that she was in the emergency room for headaches in December 2018, computed tomography scan was performed which was reportedly normal. Patients currently on Percocet 7.5/325 every 6 hours, Neurontin 300 mg twice a day. She is asking if we can increase her medications today. Patient denies any side effects of the medication, denies excessive drowsiness or sleepiness, denies suicidal ideations. Review of systems is negative for chest pain, shortness of breath, new onset weakness, numbness/tingling, abdominal pain, malaise, fever, night sweats, chills, homicidal or suicidal ideation, or bowel or bladder incontinence. Physical exam: Vitals: Reviewed in EMR GENERAL: Well appearing, in no acute distress PSYCH: Mood and affect is appropriate. Awake, alert, and oriented SKIN: Skin color, texture, turgor normal, no rashes or lesions HEENT: Normocephalic, atraumatic. EOM intact CV: No pedal edema RESP: Respirations are unlabored, no audible wheezing GI: Abdomen non-distended MUSCULOSKELETAL: Bilateral upper and lower extremity strength is normal and symmetric, except right hip4/5 in hip flexion. No atrophy or tone abnormalities are noted. Surgical scar visible over left anterior shoulder. Left pectoralis muscle atrophy. Neck: Tenderness to palpation over the cervical paraspinous muscles right greater than left. Spurling negative, Axial Loading Test negative, Chaparro's sign negative. No pain with neck flexion, extension, or lateral flexion. No obvious deformity or signs of trauma. Normal cervical lordotic curve and normal cervical spine range of motion Lumbar spine: Straight leg raising in the sitting position is positive for radicular pain in right lower extremity. No pain to palpation over the lumbar spine and paraspinous muscles. Negative for pain with facet loading and back extension/rotation. Normal range of motion without pain reproduction Buttocks: No pain to palpation over the PSIS, sacroiliac joint maneuvers are negative for pain. Extremities: Peripheral joint ROM is full and pain free without obvious instability or laxity in all four extremities. No edema or skin discolorations noted. Gait: Gait is normal NEUR: Bilateral upper and lower extremity coordination and muscle stretch reflexes are physiologic and symmetric. Negative clonus bilaterally.loss of sensation to light touch noted in bilateral fourth and fifth digits of upper extremities. Imaging: MRI cervical spine shows evidence of ACDF at C3-4 and C4-5 with no recurrent disease, mild right neuroforaminal encroachment at C4-5. Broad-based disc herniation at C6-C7 with right greater than left neuroforaminal encroachment. Grade 1 anterolisthesis at C7-T1. No spinal canal stenosis. Assessment and plan = Cervical spondylosis, history of cervical fusion surgery, cervical radiculopathy: Will schedule right paramedian C7-T1 epidural steroid injection Patient was an counseled on the importance of continuing exercises at home on a daily basis. Lumbar radiculopathy, spondylosis: Will order lumbar MRI to evaluate for new stenosis/disc herniation chronic and current use of high-risk medication (Opioids). The patient was counseled about risk of opioid use, psychological risk associated with opioids and was orally counseled to not overuse , divert,or sell dictations to take medications as prescribed only , and to restore medication in safe location , the patient counseled against driving while using narcotic medications, and also not to use alcohol or any illicit recreational drugs, patient's verbalized understanding that the lack of compliance will result in failure to renew narcotic prescription and possible discharge from the clinic - diagnoses, prognosis, and treatment options including but not limited to physical therapy, surgical interventions, interventional therapies , and medication management including narcotics and adjuvant medication were discussed with the patient and all the questions answered Medication management= prescription for Percocet 7.5/325 every 6 hours dispense 120. Today we had a long discussion about weaning narcotics, and patient is amenable to this. Refill was given for Percocet 5 mg every 6 hours, dispense 120. Patient was informed that over the next several months we will gradually reduce her medications and eventually come off narcotics. She is amenable to this plan. Prescription refill for Neurontin was increased to 300 mg 3 times a day MAPS reviewed and it was appropriate she will follow up for above-mentioned procedure PQRS Measure Charge Sheet Measure #130: Documentation of Current Meds in Medical Chart: Patient's medications documented in chart Measure #226: Tobacco Use: Screen & Cessation Intervention: Pt not a tobacco user Measure #111: Pneumonia Vaccination: Pneumococcal vaccine NOT administered or previously given Measure #47: Advance Care Plan: Advance care planning discussed & documented, pt chose/unable to give Measure #412: Opioid Treatment Agreement: Documented signed opioid trtmnt agreemnt min once during opioid trtmnt Measure #408: Opioid Therapy Follow-up Evaluation: Patient had f/u eval minimum every 3 months during opioid therapy Measure #317: Preventitive Care & Scrn High Bld Press & F/U: Normal blood pressure, f/u not required Measure #128: Body Mass Index (BMI) Screening & Follow-up: BMI documented within normal parameters Measure #131: Pain Assessment & Follow-up: Pain positive & plan documented, Follow-up scheduled Measure #431: Unhealthy Alcohol Use Preventative Care & Scrn: Patient not identified as an unhealthy alcohol user PQRS Narrative: Smoking Status Former smoker Narcotic Agreement Date Signed 08/19/18 Hx Alcohol Use (MH) No Home Medications: Ambulatory Orders buPROPion XL [Wellbutrin XL] 150 mg PO DAILY 02/04/16 Venlafaxine HCl [Effexor XR] 225 mg PO DAILY 03/02/17 Cholecalciferol [Vitamin D3 (25 Mcg = 1000 Iu)] 2,000 unit PO DAILY 10/26/17 Atorvastatin [Lipitor] 40 mg PO HS 03/17/18 Lisinopril-Hctz 20-12.5 mg [Zestoretic 20-12.5] 1 tab PO DAILY 03/17/18 Sennosides-Docusate Sodium [Senokot-S] 1 tab PO BID PRN 06/25/18 oxyCODONE HCL/ACETAMINOPHEN [Percocet 7.5-325 mg] 1 tab PO Q6HR PRN 30 Days #120 tab 12/17/18 Gabapentin [Neurontin] 300 mg PO TID 01/20/19 Controlled Substance Measures - Controlled Substance Measures Is patient prescribed a controlled substance at discharge?: Yes When asked, does pt state using other controlled substances?: No If prescribed controlled substance>3 days was MAPS reviewed?: Yes If Rx opioid, was Start Talking consent form obtained?: Yes If opioid is for acute pain is fill amount 7 days or less?: No Was information provided regarding opioid addiction?: Yes
== END | disposition home or self-care (01) ==
LOC: PNWHC3 11:33
PROVIDERS: ATTEND Anesthesiology
DX: G89.29 Other chronic pain (principal); M47.22 Other spondylosis with radiculopathy, cervical region; M47.26 Other spondylosis with radiculopathy, lumbar region; Z87.891 Personal history of nicotine dependence; Z98.1 Arthrodesis status; Z79.891 Long term (current) use of opiate analgesic; Z79.899 Other long term (current) drug therapy
CPT/HCPCS: 99211

== ENCOUNTER → 2019-03-04 | Day surgery (SDC) | payer MEDICARE ==
[2019-02-26 14:26] VITALS: BMI 20.5
[~2019-03-04] MED LIST changes: +IV FLUID CONTINUATION 700 ML IV ONE; +LACTATED RINGERS 1,000 ML IV ONE; +LIDOCAINE 1% 20 ML VIAL (10MG/ML) FOR IV START INTRADERMA ONE
[2019-03-04 08:19] VITALS: TEMP 98.2
--- NOTE | 2019-03-04 09:01 | P.PCN ---
Date of Procedure: 03/04/19 Procedure(s) Performed: . PROCEDURE 1. Cervical epidural steroid injection under fluoroscopic guidance, C7-T1 (fluoroscopy images available in the radiology department ) 2. Cervical epidurogram. PREOPERATIVE DIAGNOSIS: 1- Cervical Degenerative Disc Diseases 2- Cervical radiculopathy., POSTOPERATIVE DIAGNOSIS: : 1- Cervical Degenerative Disc Diseases , 2- Cervical radiculopathy. ANESTHESIA: Local anesthesia with lidocaine 1 % , and moderate sedation, with Versed 2 mg and Fentanyl 50 mcg. EBL 0 PROCEDURE INDICATION: The patient with neck pain and radiculitis unresponsive to conservative treatment consents for procedure. PROCEDURE DESCRIPTION / TECHNIQUE: The patient was seen and identified in the preoperative area. Risks, benefits, complications, including but not limited to infections ,bleeding , allergic reactions to the medications ,and not complete pain releife, and alternatives were discussed with the patient, the patient agreed to proceed with the procedure and signed the consent. Patient was taken to the OR and time out was completed. The patient was placed in the prone position on the procedure table. A pillow was placed under the patients chest to increase the cervical interlaminar space. The cervical area was prepped and draped in the usual sterile fashion. Vital signs were closely monitored during the procedure. Conscious sedation was used during the procedure to decrease patients anxiety. Using anterior-posterior fluoroscopy, the C7-T1 interlaminar space was identified and the skin over this site was marked and then infiltrated with 1% lidocaine subcutaneously. Subsequently, a 20-gauge 3-1/2-inch Tuohy epidural needle was inserted and advanced toward the epidural space by means of the ``hanging-drop technique and guided by AP and lateral fluoroscopy. The correct needle position in the epidural space was verified with the injection of 2 mL of the water soluble contrast dye Isovue-200 and observing an excellent epidurogram with the epidural spread of the dye, after negative aspiration for blood and CSF and in the absence of paresthesias. Again after negative aspiration, mixture containing 20 mg Dexamethasone and 2 ml of preservative- free normal saline injected and a washout of epidurogram was seen. Needle was withdrawn intact, skin was cleansed, and bandages were applied. Complications= none. Disposition= patient was placed in supine position and transferred to the recovery room area in stable condition and there was no evidence of upper or lower extremity motor or sensory deficit after the procedure patient was discharged from recovery room after discharge criteria met and home discharge instructions was given by the staff and patient will follow with the pain clinic in 2-4 weeks
[2019-03-04 10:10] VITALS: BP 104/58; PULSE 68; RESP 16
--- NOTE | 2019-03-04 10:23 | FL ---
EXAMINATION TYPE: FL guided pain mgmt statistic DATE OF EXAM: 03/04/2019 FLUOROSCOPY Fluoroscopy time of 15 seconds was used during cervical epidural steroid injection. 1 image/s docume nt/s the procedure.
== END ==
LOC: ORPAIN 07:38
PROVIDERS: ATTEND Specialist
DX: M50.10 Cervical disc disorder with radiculopathy, unspecified cervical region (principal); M47.22 Other spondylosis with radiculopathy, cervical region; Z88.2 Allergy status to sulfonamides; Z88.1 Allergy status to other antibiotic agents; Z91.040 Latex allergy status
CPT/HCPCS: 62321; J2250; J1100; J3010; Q9966; 99152

== ENCOUNTER 2019-03-05 09:14 | Emergency (ER) | payer MEDICARE ==
[2019-03-05] MEDS ORDERED: PANTOPRAZOLE 40 MG/10 ML VIAL IVP STA (09:32)
[2019-03-05] MEDS ORDERED: ONDANSETRON 4 MG/2 ML VIAL IVP STA (09:32)
[2019-03-05] MEDS ORDERED: SODIUM CHLORIDE 0.9% 1,000 ML IV STA ×2 (09:32)
[2019-03-05] MEDS ORDERED: MAG HYDROX/AL HYDROX/SIMETH 30 ML, HYOSCYAMINE ELIXIR 10 ML, CIMETIDINE HCL 300 MG, LID... PO STA ×4 (09:33)
--- NOTE | 2019-03-05 09:36 | ED ---
Abdominal Pain HPI - General Chief Complaint: Abdominal Pain Stated Complaint: coughing up coffee ground emesis Time Seen by Provider: 03/05/19 09:20 Source: patient, RN notes reviewed, old records reviewed Mode of arrival: ambulatory Limitations: no limitations - History of Present Illness Initial Comments: This is a 69-year-old female presents weren't pertinent today with epigastric abdominal pain, in 24 hours of vomiting. She reports that she's had episodes of coffee-ground emesis. She states she's had history of ulcers before. She states 2016 she is referred to ulcer she had fun Jarek fundoplication. Patient states that over the past month she's had increased epigastric abdominal pain. Patient states that she's had no changes in stools. Patient states the pain is in the epigastrium radiating towards her back. - Related Data Home Medications Medication Instructions Recorded Confirmed Atorvastatin [Lipitor] 40 mg PO QAM 03/17/18 03/05/19 Lisinopril-Hctz 20-12.5 mg 1 tab PO DAILY 03/17/18 03/05/19 [Zestoretic 20-12.5] Sennosides-Docusate Sodium 1 tab PO BID PRN 06/25/18 03/05/19 [Senokot-S] Gabapentin [Neurontin] 300 mg PO TID 01/20/19 03/05/19 Venlafaxine HCl [Effexor] 75 mg PO QAM 02/05/19 03/05/19 oxyCODONE-APAP 5-325MG [Percocet 1 tab PO Q6HR PRN 02/26/19 03/05/19 5-325 mg] Previous Rx's Medication Instructions Recorded Omeprazole 40 mg PO DAILY #30 capsule. 03/05/19 Ondansetron Odt [Zofran Odt] 4 mg PO Q8HR PRN #20 tab 03/05/19 Sucralfate [Carafate] 1 gm PO ACHS #30 tablet 03/05/19 Allergies Allergy/AdvReac Type Severity Reaction Status Date / Time Sulfa (Sulfonamide Allergy Severe Rash/Hives Verified 03/05/19 09:26 Antibiotics) Tetracyclines Allergy Severe Rash/Hives Verified 03/05/19 09:26 latex Allergy Rash/Hives Verified 03/05/19 09:26 lorazepam [From Ativan] AdvReac Confusion Verified 03/05/19 09:26 TIDE AND EXTRA LAUNDRY SOAP Allergy Rash/Hives Uncoded 03/04/19 08:20 Review of Systems ROS Statement: Those systems with pertinent positive or pertinent negative responses have been documented in the HPI. ROS Other: All systems not noted in ROS Statement are negative. Past Medical History Past Medical History: Cancer, COPD, Fibromyalgia, GI Bleed, Hyperlipidemia, Hypertension, Musculoskeletal Disorder, Osteoarthritis (OA), Rheumatoid Arthri tis (RA), Syncope Additional Past Medical History / Comment(s): COPD, hyperlipidemia, chronic pain related to a humeral fracture with subsequent injury to her, T11 spinal frac ture, previous history of humeral fracture, history of breast cancer, history of cervical cancer, chronic back pain, migraines, recurrent falls, chronic narcotic medication dependence, fibromyalgia, , osteoarthritis History of Any Multi-Drug Resistant Organisms: None Reported Past Surgical History: Section, Hysterectomy, Orthopedic Surgery, Tonsillectomy Additional Past Surgical History / Comment(s): Cervical and Lumbar fusion; ORIF of Humerus with carlos and screws. lt breast lumpectomy 2001, 2ND lumpectomy [place] 2003 was [place]. Breast Reduction 2009.-had non healing wound afterwards then had wound closure and skin graft,Left breast mastectomy 2016, RT tympanoplasty. D&C. EXC Cataract RITU. Jarek Fundoplasty for hernia, removal of hardware from left shoulder, loop recorder 2013, PAIN CLINIC PROCEDURE Past Anesthesia/Blood Transfusion Reactions: No Reported Reaction, Family Hi story of Problems w/ Anesthesia Additional Past Anesthesia/Blood Transfusion Reaction / Comment(s): SISTER TAKES LONGER TO AWAKEN, YEARS AGO. Past Psychological History: Anxiety, Depression, Panic Disorder, PTSD Smoking Status: Former smoker Past Alcohol Use History: None Reported Past Drug Use History: None Reported - Past Family History Father Family Medical History: Congestive Heart Failure (CHF), COPD Additional Family Medical History / Comment(s): at age 72 Mother Family Medical History: Myocardial Infarction ([place]) Additional Family Medical History / Comment(s): 1987 age 57 mi General Exam - General Exam Comments Initial Comments: 69-year-old female. Alert and oriented 3. Patient appears in no significant distress. Limitations: no limitations Head exam: Present: atraumatic, normocephalic, normal inspection Eye exam: Present: normal appearance, PERRL, EOMI. Absent: scleral icterus, conjunctival injection, periorbital swelling ENT exam: Present: normal exam, mucous membranes moist Neck exam: Present: normal inspection. Absent: tenderness, meningismus, lymphadenopathy Respiratory exam: Present: normal lung sounds bilaterally. Absent: respiratory distress, wheezes, rales, rhonchi, stridor Cardiovascular Exam: Present: regular rate, normal rhythm, normal heart sounds. Absent: systolic murmur, diastolic murmur, rubs, gallop, clicks GI/Abdominal exam: Present: tenderness (Epigastric tenderness.) Extremities exam: Present: normal inspection, full ROM, normal capillary refill. Absent: tenderness, pedal edema, joint swelling, calf tenderness Back exam: Present: normal inspection Neurological exam: Present: alert, oriented X3, CN II-XII intact Psychiatric exam: Present: normal affect, normal mood Course Vital Signs 03/05/19 03/05/19 03/05/19 09:16 10:55 12:16 Temperature 98.3 F 98.3 F Pulse Rate 86 75 67 Respiratory 18 16 18 Rate Blood Pressure 157/72 146/87 101/53 O2 Sat by Pulse 99 98 97 Oximetry Medical Decision Making - Medical Decision Making This is a 69-year-old female presents with nausea vomiting epigastric abdominal pain towards her back and noted some coffee-ground emesis. History of ulcers and had a history of nice and fundoplication a few years ago. This time patient's labwork was reviewed, hemoglobin is stable. Patient has no other continue concerning signs on exam, she was given a GI cocktail, Pepcid, does appear demented does have some improvement. Patient was informed she needs follow up with GI specialty likely spelled ulcer. Will discharge Patient with a prescription for Carafate, Protonix, and Zofran. Discussed that she should have a bland diet. All questions answered return parameters were discussed. - Lab Data Result diagrams: 03/05/19 10:01 03/05/19 10:01 Lab Results 03/05/19 03/05/19 03/05/19 Range/Units 10:01 10:01 10:01 WBC 11.2 H (3.8-10.6) k/uL RBC 4.02 (3.80-5.40) m/uL Hgb 12.7 (11.4-16.0) gm/dL Hct 37.3 (34.0-46.0) % MCV 92.8 (80.0-100.0) fL MCH 31.7 (25.0-35.0) pg MCHC 34.1 (31.0-37.0) g/dL RDW 13.2 (11.5-15.5) % Plt Count 327 (150-450) k/uL Neutrophils % 84 % Lymphocytes % 10 % Monocytes % 4 % Eosinophils % 1 % Basophils % 1 % Neutrophils # 9.4 H (1.3-7.7) k/uL Lymphocytes # 1.1 (1.0-4.8) k/uL Monocytes # 0.5 (0-1.0) k/uL Eosinophils # 0.1 (0-0.7) k/uL Basophils # 0.1 (0-0.2) k/uL PT 9.9 (9.0-12.0) sec INR 0.9 (<1.2) APTT 21.0 L (22.0-30.0) sec Sodium 141 (137-145) mmol/L Potassium 4.1 (3.5-5.1) mmol/L Chloride 105 (98-107) mmol/L Carbon Dioxide 25 (22-30) mmol/L Anion Gap 11 mmol/L BUN 18 H (7-17) mg/dL Creatinine 0.59 (0.52-1.04) mg/dL Est GFR (CKD-EPI)AfAm >90 (>60 ml/min/1.73 sqM) Est GFR (CKD-EPI)NonAf >90 (>60 ml/min/1.73 sqM) Glucose 111 H (74-99) mg/dL Calcium 11.0 H (8.4-10.2) mg/dL Total Bilirubin 0.3 (0.2-1.3) mg/dL AST 24 (14-36) U/L ALT 20 (9-52) U/L Alkaline Phosphatase 113 (38-126) U/L Total Protein 7.5 (6.3-8.2) g/dL Albumin 4.6 (3.5-5.0) g/dL Amylase 66 (30-110) U/L Lipase 35 (23-300) U/L Urine Color Urine Appearance (Clear) Urine pH (5.0-8.0) Ur Specific [place] (1.001-1.035) Urine Protein (Negative) Urine Glucose (UA) (Negative) Urine Ketones (Negative) Urine Blood (Negative) Urine Nitrite (Negative) Urine Bilirubin (Negative) Urine Urobilinogen (<2.0) mg/dL Ur Leukocyte Esterase (Negative) 03/05/19 Range/Units 10:07 WBC (3.8-10.6) k/uL RBC (3.80-5.40) m/uL Hgb (11.4-16.0) gm/dL Hct (34.0-46.0) % MCV (80.0-100.0) fL MCH (25.0-35.0) pg MCHC (31.0-37.0) g/dL RDW (11.5-15.5) % Plt Count (150-450) k/uL Neutrophils % % Lymphocytes % % Monocytes % % Eosinophils % % Basophils % % Neutrophils # (1.3-7.7) k/uL Lymphocytes # (1.0-4.8) k/uL Monocytes # (0-1.0) k/uL Eosinophils # (0-0.7) k/uL Basophils # (0-0.2) k/uL PT (9.0-12.0) sec INR (<1.2) APTT (22.0-30.0) sec Sodium (137-145) mmol/L Potassium (3.5-5.1) mmol/L Chloride (98-107) mmol/L Carbon Dioxide (22-30) mmol/L Anion Gap mmol/L BUN (7-17) mg/dL Creatinine (0.52-1.04) mg/dL Est GFR (CKD-EPI)AfAm (>60 ml/min/1.73 sqM) Est GFR (CKD-EPI)NonAf (>60 ml/min/1.73 sqM) Glucose (74-99) mg/dL Calcium (8.4-10.2) mg/dL Total Bilirubin (0.2-1.3) mg/dL AST (14-36) U/L ALT (9-52) U/L Alkaline Phosphatase (38-126) U/L Total Protein (6.3-8.2) g/dL Albumin (3.5-5.0) g/dL Amylase (30-110) U/L Lipase (23-300) U/L Urine Color Yellow Urine Appearance Clear (Clear) Urine pH 5.5 (5.0-8.0) Ur Specific [place] 1.024 (1.001-1.035) Urine Protein Negative (Negative) Urine Glucose (UA) Negative (Negative) Urine Ketones Negative (Negative) Urine Blood Negative (Negative) Urine Nitrite Negative (Negative) Urine Bilirubin Negative (Negative) Urine Urobilinogen <2.0 (<2.0) mg/dL Ur Leukocyte Esterase Negative (Negative) Disposition Clinical Impression: Gastritis Disposition: HOME SELF-CARE Condition: Good Instructions (If sedation given, give patient instructions): Gastritis (DC), Diet for Stomach Ulcers and Gastritis (ED) Additional Instructions: Please use medication as discussed. Please follow up with family doctor if symptoms have not improved over the next two days. Patient advised to follow-up with GI specialist as well. Please return to the emergency room if your symptoms increase or worsen or for any other concerns. Prescriptions: Sucralfate [Carafate] 1 gm PO ACHS #30 tablet Omeprazole 40 mg PO DAILY #30 capsule. Ondansetron Odt [Zofran Odt] 4 mg PO Q8HR PRN #20 tab PRN Reason: Nausea Is patient prescribed a controlled substance at d/c from ED?: No Referrals: Easton Tripathi DO [Primary Care Provider] - 1-2 days Annette Tony MD [Family Provider] - 1-2 days Time of Disposition: 12:40
[2019-03-05 10:16] LABS: Basophils # (A) 0.1 k/uL (0-0.2); Basophils % (A) 1 %; Eosinophils # (A) 0.1 k/uL (0-0.7); Eosinophils % (A) 1 %; HCT 37.3 % (34.0-46.0); HGB 12.7 gm/dL (11.4-16.0); Lymphocytes # (A) 1.1 k/uL (1.0-4.8); Lymphocytes % (A) 10 %; MCH 31.7 pg (25.0-35.0); MCHC 34.1 g/dL (31.0-37.0); MCV 92.8 fL (80.0-100.0); Mean Platelet Volume 6.9; Monocytes # (A) 0.5 k/uL (0-1.0); Monocytes % (A) 4 %; Neutrophils # (A) 9.4 k/uL (1.3-7.7); Neutrophils % (A) 84 %; Platelet Count 327 k/uL (150-450); RBC 4.02 m/uL (3.80-5.40); RDW 13.2 % (11.5-15.5); WBC 11.2 k/uL (3.8-10.6)
[2019-03-05 10:28] LABS: Appearance,Urine Clear (Clear); Bilirubin,Urine Negative (Negative); Blood,Urine Negative (Negative); Color,Urine Yellow; Glucose,Urine (UA) Negative (Negative); Ketones,Urine Negative (Negative); Leukocyte Esterase,Urine Negative (Negative); Nitrite,Urine Negative (Negative); PH, Urine 5.5 (5.0-8.0); Protein,Urine Negative (Negative); Specific Gravity,Urine 1.024 (1.001-1.035); Urobilinogen,Urine <2.0 mg/dL (<2.0)
[2019-03-05 10:29] LABS: ALT 20 U/L (9-52); AST 24 U/L (14-36); African American GFR (CKD) >90 (>60 ml/min/1.73 sqM); Albumin 4.6 g/dL (3.5-5.0); Alkaline Phosphatase 113 U/L (38-126); Amylase 66 U/L (30-110); Anion Gap 11 mmol/L; Blood Urea Nitrogen 18 mg/dL (7-17); Carbon Dioxide 25 mmol/L (22-30); Chloride 105 mmol/L (98-107); Glucose 111 mg/dL (74-99); Potassium 4.1 mmol/L (3.5-5.1); Sodium 141 mmol/L (137-145); Total Bilirubin 0.3 mg/dL (0.2-1.3); Total Protein 7.5 g/dL (6.3-8.2)
--- NOTE | 2019-03-05 10:33 | XR ---
EXAMINATION TYPE: XR chest 2V DATE OF EXAM: 03/05/2019 COMPARISON: Chest x-ray December 29, 2018. HISTORY: Epigastric and chest pain. TECHNIQUE: Frontal and lateral views of the chest are obtained. FINDINGS: Elevated left hemidiaphragm. Chronic parenchymal change bilaterally. There is no suspiciou s focal air space opacity, pleural effusion, or pneumothorax seen. The cardiac silhouette size is st able and within normal limits. Metallic artifact from a shoulder surgery is partially imaged. And the re is partial visualization of fusion plate in the cervical spine and surgical hardware in the lumbar spine. Overlying loop recorder redemonstrated in the left anterior chest wall. IMPRESSION: Chronic changes without acute pulmonary process. No significant change from prior.
[2019-03-05 10:34] LABS: INR 0.9 (<1.2); Prothrombin Time 9.9 sec (9.0-12.0)
--- NOTE | 2019-03-05 10:34 | XR ---
EXAMINATION TYPE: XR KUB DATE OF EXAM: 03/05/2019 10:22 AM CLINICAL HISTORY: Epigastric pain with coffee-ground emesis. TECHNIQUE: Two Upright KUB images of the abdomen are obtained. COMPARISON: Abdominal x-ray July 04, 2018. FINDINGS: Scattered gas is seen in non-distended small bowel loops. Gas and fecal material is seen in non-distended colon. There is surgical change near lumbosacral junction redemonstrated. Prominent ri ght hepatic lobe or mild splenomegaly redemonstrated. No pneumoperitoneum. IMPRESSION: Overall nonobstructive bowel gas pattern remains present.
[2019-03-05] MEDS ORDERED: MORPHINE SULFATE 4 MG/ML SYRINGE IVP STA (10:47)
[2019-03-05 12:18] VITALS: PULSE 67; RESP 18
[2019-03-05] MEDS ORDERED: METOCLOPRAMIDE 5 MG/ML 2 ML VIAL IVP STA (12:38)
[2019-03-05 13:05] VITALS: BP 107/61; TEMP 98
== END 2019-03-05 13:10 | disposition home or self-care (01) ==
LOC: EC 09:14
DX: K29.70 Gastritis, unspecified, without bleeding (principal); E78.5 Hyperlipidemia, unspecified; I10 Essential (primary) hypertension; F32.9 Major depressive disorder, single episode, unspecified; F41.0 Panic disorder [episodic paroxysmal anxiety]; Z79.899 Other long term (current) drug therapy; Z88.1 Allergy status to other antibiotic agents; Z88.2 Allergy status to sulfonamides; Z88.8 Allergy status to other drugs, medicaments and biological substances; Z91.040 Latex allergy status; Z91.048 Other nonmedicinal substance allergy status; Z98.1 Arthrodesis status; Z85.3 Personal history of malignant neoplasm of breast; Z85.41 Personal history of malignant neoplasm of cervix uteri; Z90.12 Acquired absence of left breast and nipple
CPT/HCPCS: 99284; 96374; 96375 ×3; 96361 ×3; 36415; 80053; 82150; 83690; 85025; 85610; 85730; 81003; 71046; 74018; J2270; J2765; J2405; C9113

== ENCOUNTER 2019-03-09 17:13 | Observation (INO) | payer MEDICARE ==
[2019-03-09] MEDS ORDERED: SODIUM CHLORIDE 0.9% 1,000 ML IV STA ×2 (17:41)
[2019-03-09] MEDS ORDERED: PANTOPRAZOLE 40 MG/10 ML VIAL IVP STA (17:42)
[2019-03-09] MEDS ORDERED: MORPHINE SULFATE 4 MG/ML SYRINGE IVP STA (17:59)
[2019-03-09] MEDS ORDERED: ONDANSETRON 4 MG/2 ML VIAL IVP STA (17:59)
[2019-03-09 18:21] LABS: Basophils % (A) 0 %; Eosinophils # (A) 0.2 k/uL (0-0.7); Eosinophils % (A) 2 %; HCT 38.1 % (34.0-46.0); Lymphocytes % (A) 16 %; MCH 32.6 pg (25.0-35.0); MCHC 34.2 g/dL (31.0-37.0); MCV 95.4 fL (80.0-100.0); Monocytes # (A) 0.7 k/uL (0-1.0); Monocytes % (A) 5 %; Neutrophils # (A) 9.5 k/uL (1.3-7.7); Neutrophils % (A) 76 %; Platelet Count 331 k/uL (150-450); RBC 3.99 m/uL (3.80-5.40); RDW 13.5 % (11.5-15.5); WBC 12.6 k/uL (3.8-10.6)
[2019-03-09 18:29] LABS: INR 0.9 (<1.2); Partial Thromboplastin Time 24.1 sec (22.0-30.0); Prothrombin Time 10.1 sec (9.0-12.0)
[2019-03-09 18:34] LABS: Albumin 3.7 g/dL (3.5-5.0); Calcium 9.6 mg/dL (8.4-10.2); Magnesium 1.7 mg/dL (1.6-2.3); Potassium 4.2 mmol/L (3.5-5.1); Total Bilirubin 0.5 mg/dL (0.2-1.3); Total Protein 6.3 g/dL (6.3-8.2)
--- NOTE | 2019-03-09 18:54 | ED ---
GI Bleed HPI - General Chief complaint: GI Bleed Stated complaint: Abd pain Time Seen by Provider: 03/09/19 17:23 Source: patient, RN notes reviewed, old records reviewed Mode of arrival: EMS Limitations: no limitations - History of Present Illness Initial comments: Patient is a 69-year-old female presents emergency department today for evaluation with chief complaint of multiple episodes of diarrhea for the past 24 hours. She reports that she went to go to the bathroom, and episode of passing out she woke up and she was covered in stool. She reports that she's noticed some bloody stools. Patient was seen in the emergency department 2 days ago for an upper GI or gastritis Patient is placed on Protonix. She states that her nausea and vomiting. Is now she's having some bloody stools. Patient states that she has lower abdominal cramping pain. She reports that history of diverticulitis in the past. Patient denies any associated fevers or chills. - Related Data Home Medications Medication Instructions Recorded Confirmed Atorvastatin [Lipitor] 40 mg PO DAILY 03/17/18 03/09/19 Lisinopril-Hctz 20-12.5 mg 1 tab PO DAILY 03/17/18 03/09/19 [Zestoretic 20-12.5] Sennosides-Docusate Sodium 1 tab PO BID PRN 06/25/18 03/09/19 [Senokot-S] Gabapentin [Neurontin] 300 mg PO TID 01/20/19 03/09/19 oxyCODONE-APAP 5-325MG [Percocet 1 tab PO Q6HR PRN 02/26/19 03/09/19 5-325 mg] Venlafaxine HCl [Effexor XR] 75 mg PO DAILY 03/09/19 03/09/19 Previous Rx's Medication Instructions Recorded Omeprazole 40 mg PO DAILY #30 capsule. 03/05/19 Ondansetron Odt [Zofran Odt] 4 mg PO Q8HR PRN #20 tab 03/05/19 Sucralfate [Carafate] 1 gm PO ACHS #30 tablet 03/05/19 Allergies Allergy/AdvReac Type Severity Reaction Status Date / Time Sulfa (Sulfonamide Allergy Severe Rash/Hives Verified 03/09/19 20:42 Antibiotics) Tetracyclines Allergy Severe Rash/Hives Verified 03/09/19 20:42 latex Allergy Rash/Hives Verified 03/09/19 20:42 lorazepam [From Ativan] AdvReac Confusion Verified 03/09/19 20:42 TIDE AND EXTRA LAUNDRY SOAP Allergy Rash/Hives Uncoded 03/09/19 20:42 Review of Systems ROS Statement: Those systems with pertinent positive or pertinent negative responses have been documented in the HPI. ROS Other: All systems not noted in ROS Statement are negative. Past Medical History Past Medical History: Cancer, COPD, Fibromyalgia, GI Bleed, Hyperlipidemia, Hypertension, Musculoskeletal Disorder, Osteoarthritis (OA), Rheumatoid Arthritis (RA), Syncope Additional Past Medical History / Comment(s): COPD, hyperlipidemia, chronic pain related to a humeral fracture with subsequent injury to her, T11 spinal fracture, previous history of humeral fracture, history of breast cancer, history of cervical cancer, chronic back pain, migraines, recurrent falls, chronic narcotic medication dependence, fibromyalgia, , osteoarthritis History of Any Multi-Drug Resistant Organisms: None Reported Past Surgical History: Section, Hysterectomy, Orthopedic Surgery, Tonsillectomy Additional Past Surgical History / Comment(s): Cervical and Lumbar fusion; ORIF of Humerus with carlos and screws. lt breast lumpectomy 2001, 2ND lumpectomy [place] 2003 was [place]. Breast Reduction 2009.-had non healing wound afterwards then had wound closure and skin graft,Left breast mastectomy 2016, RT tympanoplasty. D&C. EXC Cataract RITU. Jarek Fundoplasty for hernia, removal of hardware from left shoulder, loop recorder 2013, PAIN CLINIC PROCEDURE Past Anesthesia/Blood Transfusion Reactions: No Reported Reaction, Family History of Problems w/ Anesthesia Additional Past Anesthesia/Blood Transfusion Reaction / Comment(s): SISTER TAKES LONGER TO AWAKEN, YEARS AGO. Past Psychological History: Anxiety, Depression, Panic Disorder, PTSD Smoking Status: Former smoker Past Alcohol Use History: None Reported Past Drug Use History: None Reported - Past Family History Father Family Medical History: Congestive Heart Failure (CHF), COPD Additional Family Medical History / Comment(s): at age 72 Mother Family Medical History: Myocardial Infarction ([place]) Additional Family Medical History / Comment(s): 1987 age 57 mi General Exam - General Exam Comments Initial Comments: Is a 69-year-old female. Alert and oriented 3. No distress. Limitations: no limitations General appearance: alert, in no apparent distress Head exam: Present: atraumatic, normocephalic, normal inspection Eye exam: Present: normal appearance, PERRL, EOMI. Absent: scleral icterus, conjunctival injection, periorbital swelling ENT exam: Present: normal exam, mucous membranes moist Neck exam: Present: normal inspection. Absent: tenderness, meningismus, lymphadenopathy Respiratory exam: Present: normal lung sounds bilaterally. Absent: respiratory distress, wheezes, rales, rhonchi, stridor Cardiovascular Exam: Present: regular rate, normal rhythm, normal heart sounds. Absent: systolic murmur, diastolic murmur, rubs, gallop, clicks GI/Abdominal exam: Present: soft, tenderness (Left lower quadrant tenderness) Rectal exam: Present: heme (+) stool, bloody stool Extremities exam: Present: normal inspection, full ROM, normal capillary refill. Absent: tenderness, pedal edema, joint swelling, calf tenderness Back exam: Present: normal inspection Psychiatric exam: Present: normal affect, normal mood Skin exam: Present: warm, dry, intact, normal color. Absent: rash Course Vital Signs 03/09/19 03/09/19 03/09/19 17:20 17:35 17:45 Temperature 98.1 F Pulse Rate 98 85 82 Respiratory 18 18 18 Rate Blood Pressure 92/70 85/57 91/49 O2 Sat by Pulse 98 97 96 Oximetry 03/09/19 03/09/19 03/09/19 18:00 18:18 19:00 Temperature Pulse Rate 85 82 81 Respiratory 18 18 18 Rate Blood Pressure 94/51 101/60 92/45 O2 Sat by Pulse 96 98 Oximetry 03/09/19 19:37 Temperature Pulse Rate 83 Respiratory 18 Rate Blood Pressure 90/50 O2 Sat by Pulse 98 Oximetry Medical Decision Making - Medical Decision Making Patient is a 69-year-old female percent range from today and was given chief complaint dizziness, although episodes of bloody diarrhea. At this time Patient did have positive bright red blood per rectum. No significant hemorrhoid. She does have some quadrant tenderness. CT abdomen was ordered shows evidence of colitis. No weapons account is mildly elevated 12,000. Her hemoglobin is stable consider she's had some episodes of bloody stools. This is sent not changed since her last hemoglobin 4 days ago. At that time she was seen for an upper GI bleed, complaint of coffee-ground emesis. At this time patient's denies any coffee-ground emesis or nausea. Patient was given 1 dose of pain meds and 3 L bolus. Patient was started on levaquin and Flagyl for lightest. Patient was admitted this time with repeat CBCs. - Lab Data Result diagrams: 03/09/19 17:35 03/09/19 17:35 Lab Results 03/09/19 03/09/19 03/09/19 Range/Units 17:35 17:35 17:35 WBC 12.6 H (3.8-10.6) k/uL RBC 3.99 (3.80-5.40) m/uL Hgb 13.0 (11.4-16.0) gm/dL Hct 38.1 (34.0-46.0) % MCV 95.4 (80.0-100.0) fL MCH 32.6 (25.0-35.0) pg MCHC 34.2 (31.0-37.0) g/dL RDW 13.5 (11.5-15.5) % Plt Count 331 (150-450) k/uL Neutrophils % 76 % Lymphocytes % 16 % Monocytes % 5 % Eosinophils % 2 % Basophils % 0 % Neutrophils # 9.5 H (1.3-7.7) k/uL Lymphocytes # 2.0 (1.0-4.8) k/uL Monocytes # 0.7 (0-1.0) k/uL Eosinophils # 0.2 (0-0.7) k/uL Basophils # 0.0 (0-0.2) k/uL PT (9.0-12.0) sec INR (<1.2) APTT (22.0-30.0) sec Sodium 137 (137-145) mmol/L Potassium 4.2 (3.5-5.1) mmol/L Chloride 106 (98-107) mmol/L Carbon Dioxide 21 L (22-30) mmol/L Anion Gap 10 mmol/L BUN 27 H (7-17) mg/dL Creatinine 0.81 (0.52-1.04) mg/dL Est GFR (CKD-EPI)AfAm 88 (>60 ml/min/1.73 sqM) Est GFR (CKD-EPI)NonAf 76 (>60 ml/min/1.73 sqM) Glucose 92 (74-99) mg/dL Plasma Lactic Acid Eliseo (0.7-2.0) mmol/L Calcium 9.6 (8.4-10.2) mg/dL Magnesium 1.7 (1.6-2.3) mg/dL Total Bilirubin 0.5 (0.2-1.3) mg/dL AST 23 (14-36) U/L ALT 23 (9-52) U/L Alkaline Phosphatase 104 (38-126) U/L Troponin I (0.000-0.034) ng/mL Total Protein 6.3 (6.3-8.2) g/dL Albumin 3.7 (3.5-5.0) g/dL Stool Occult Blood Positive H (Negative) Blood Type Blood Type Recheck Bld Type Recheck Status Antibody Screen Spec Expiration Date 03/09/19 03/09/19 03/09/19 Range/Units 17:35 17:35 17:35 WBC (3.8-10.6) k/uL RBC (3.80-5.40) m/uL Hgb (11.4-16.0) gm/dL Hct (34.0-46.0) % MCV (80.0-100.0) fL MCH (25.0-35.0) pg MCHC (31.0-37.0) g/dL RDW (11.5-15.5) % Plt Count (150-450) k/uL Neutrophils % % Lymphocytes % % Monocytes % % Eosinophils % % Basophils % % Neutrophils # (1.3-7.7) k/uL Lymphocytes # (1.0-4.8) k/uL Monocytes # (0-1.0) k/uL Eosinophils # (0-0.7) k/uL Basophils # (0-0.2) k/uL PT 10.1 (9.0-12.0) sec INR 0.9 (<1.2) APTT 24.1 (22.0-30.0) sec Sodium (137-145) mmol/L Potassium (3.5-5.1) mmol/L Chloride (98-107) mmol/L Carbon Dioxide (22-30) mmol/L Anion Gap mmol/L BUN (7-17) mg/dL Creatinine (0.52-1.04) mg/dL Est GFR (CKD-EPI)AfAm (>60 ml/min/1.73 sqM) Est GFR (CKD-EPI)NonAf (>60 ml/min/1.73 sqM) Glucose (74-99) mg/dL Plasma Lactic Acid Eliseo (0.7-2.0) mmol/L Calcium (8.4-10.2) mg/dL Magnesium (1.6-2.3) mg/dL Total Bilirubin (0.2-1.3) mg/dL AST (14-36) U/L ALT (9-52) U/L Alkaline Phosphatase (38-126) U/L Troponin I <0.012 (0.000-0.034) ng/mL Total Protein (6.3-8.2) g/dL Albumin (3.5-5.0) g/dL Stool Occult Blood (Negative) Blood Type O Negative Blood Type Recheck O Neg Bld Type Recheck Status No Antibody Screen NEGATIVE Spec Expiration Date 03/12/2019 - 233403/09/19 Range/Units 18:05 WBC (3.8-10.6) k/uL RBC (3.80-5.40) m/uL Hgb (11.4-16.0) gm/dL Hct (34.0-46.0) % MCV (80.0-100.0) fL MCH (25.0-35.0) pg MCHC (31.0-37.0) g/dL RDW (11.5-15.5) % Plt Count (150-450) k/uL Neutrophils % % Lymphocytes % % Monocytes % % Eosinophils % % Basophils % % Neutrophils # (1.3-7.7) k/uL Lymphocytes # (1.0-4.8) k/uL Monocytes # (0-1.0) k/uL Eosinophils # (0-0.7) k/uL Basophils # (0-0.2) k/uL PT (9.0-12.0) sec INR (<1.2) APTT (22.0-30.0) sec Sodium (137-145) mmol/L Potassium (3.5-5.1) mmol/L Chloride (98-107) mmol/L Carbon Dioxide (22-30) mmol/L Anion Gap mmol/L BUN (7-17) mg/dL Creatinine (0.52-1.04) mg/dL Est GFR (CKD-EPI)AfAm (>60 ml/min/1.73 sqM) Est GFR (CKD-EPI)NonAf (>60 ml/min/1.73 sqM) Glucose (74-99) mg/dL Plasma Lactic Acid Eliseo 1.1 (0.7-2.0) mmol/L Calcium (8.4-10.2) mg/dL Magnesium (1.6-2.3) mg/dL Total Bilirubin (0.2-1.3) mg/dL AST (14-36) U/L ALT (9-52) U/L Alkaline Phosphatase (38-126) U/L Troponin I (0.000-0.034) ng/mL Total Protein (6.3-8.2) g/dL Albumin (3.5-5.0) g/dL Stool Occult Blood (Negative) Blood Type Blood Type Recheck Bld Type Recheck Status Antibody Screen Spec Expiration Date - Radiology Data Radiology results: report reviewed Diffuse thickening of the lumbar the ascending colon and proximal colon consistent with nonspecific colitis that is unchanged. Clearing of thickened bowel wall compared to last exam. Pneumonia left lower lobe compared to last exam. Compression fracture T12 compared old exam and T11 compression fractures and change. Disposition Clinical Impression: Colitis, GI bleed Disposition: ADMITTED IP TO THIS [facility] Condition: Stable Is patient prescribed a controlled substance at d/c from ED?: No Referrals: Easton Tripathi DO [Primary Care Provider] - 1-2 days Time of Disposition: 20:55
--- NOTE | 2019-03-09 19:46 | CT ---
EXAMINATION TYPE: CT abdomen pelvis w con DATE OF EXAM: 03/09/2019 COMPARISON: 03/17/2018 HISTORY: Diarrhea and blood in stool. CT DLP: 701.8 mGycm Automated exposure control for dose reduction was used. TECHNIQUE: Helical acquisition of images was performed from the lung bases through the pelvis. CONTRAST: Performed without Oral Contrast and with IV Contrast, patient injected with 100 mL of Isovue 300. FINDINGS: Lung bases are clear. There is no pleural effusion. Heart size is normal. There is small hiatal herni a. There are clips from cholecystectomy. Liver and gallbladder appear normal. Bile ducts are not dilated. Stomach has normal size. Spleen appe ars normal. There is no sign of pancreatic mass. There is no adrenal mass. Kidneys show satisfactory contrast opacification. There is no hydronephrosi s. Ureters are not dilated. Abdominal aorta is atheromatous. There is no retroperitoneal adenopathy. Bladder distends smoothly. There is no inguinal hernia. There is no free fluid in the pelvis. There is no mesenteric edema. There is no ascites or free air. There is no sign of mechanical bowel o bstruction. There is diffuse wall thickening of the descending colon. Right colon appears normal. Appendix appear s normal.. There is spondylotic changes in the lumbar spine. There is posterior fusion surgery at L4 and L5 and S1. There is T12 and T11 compression fractures up to 35%. IMPRESSION: DIFFUSE THICKENING OF THE WALL OF THE DESCENDING COLON AND PROXIMAL SIGMOID COLON CONSISTENT WITH A N ONSPECIFIC COLITIS THAT IS A CHANGE COMPARED TO OLD EXAM. There is clearing of the thickened small bowel wall compared to old exam. There is clearing of pneumo holden left lower lobe compared to old exam. There is a new compression fracture of T12 vertebra compared to old exam. T11 compression fracture un changed.
[2019-03-09] MEDS ORDERED: LEVOFLOXACIN 750MG-D5W PMX 750 MG in DEXTROSE/WATER 1 150ML.BAG IVPB STA (20:20)
[2019-03-09] MEDS ORDERED: metroNIDAZOLE-NS PMX 500 MG in SALINE 1 100ML.BAG IVPB STA (20:20)
[2019-03-09] MEDS ORDERED: SODIUM CHLORIDE 0.9% 1,000 ML IV ONE ×2 (20:20→20:52)
[2019-03-09] MEDS ORDERED: NALOXONE 0.4 MG/ML 1 ML VIAL IV PRN (20:56)
[2019-03-09] MEDS ORDERED: HYDROmorphone 0.5 MG/0.5 ML SYRINGE IVP PRN (20:56)
[2019-03-09] MEDS ORDERED: ACETAMINOPHEN TAB 325 MG TAB PO PRN (20:56)
[2019-03-09] MEDS ORDERED: PANTOPRAZOLE 40 MG/10 ML VIAL IV SCH (21:00)
[2019-03-09 21:49] LABS: Basophils % (A) 0 %; Eosinophils # (A) 0.2 k/uL (0-0.7); Eosinophils % (A) 2 %; HGB 10.9 gm/dL (11.4-16.0); Lymphocytes # (A) 1.8 k/uL (1.0-4.8); Lymphocytes % (A) 19 %; MCH 31.1 pg (25.0-35.0); MCV 97.4 fL (80.0-100.0); Mean Platelet Volume 6.9; Monocytes # (A) 0.4 k/uL (0-1.0); Monocytes % (A) 4 %; Neutrophils # (A) 7.1 k/uL (1.3-7.7); Neutrophils % (A) 73 %; Platelet Count 246 k/uL (150-450); RBC 3.49 m/uL (3.80-5.40); RDW 13.6 % (11.5-15.5); WBC 9.7 k/uL (3.8-10.6)
[2019-03-09] MEDS: MORPHINE SULFATE 4 MG/ML SYRINGE IV PRN (22:48)
[2019-03-10 00:21] LABS: Appearance,Urine Clear (Clear); Bilirubin,Urine Negative (Negative); Blood,Urine Negative (Negative); Color,Urine Light Yellow; Glucose,Urine (UA) Negative (Negative); Ketones,Urine Negative (Negative); Leukocyte Esterase,Urine Negative (Negative); Nitrite,Urine Negative (Negative); Protein,Urine Negative (Negative); Specific Gravity,Urine 1.028 (1.001-1.035); Urobilinogen,Urine <2.0 mg/dL (<2.0)
[2019-03-10] MEDS: PANTOPRAZOLE 40 MG/10 ML VIAL IV SCH ×2 (01:25→10:00)
[2019-03-10] MEDS ORDERED: PANTOPRAZOLE 40 MG/10 ML VIAL IVP ONE (01:27)
[2019-03-10] MEDS ORDERED: metroNIDAZOLE-NS PMX 500 MG in SALINE 1 100ML.BAG IVPB SCH (07:00)
[2019-03-10 07:51] LABS: Basophils # (A) 0.2 k/uL (0-0.2); Basophils % (A) 2 %; Eosinophils # (A) 0.2 k/uL (0-0.7); Eosinophils % (A) 2 %; HGB 11.8 gm/dL (11.4-16.0); Lymphocytes # (A) 1.4 k/uL (1.0-4.8); Lymphocytes % (A) 16 %; MCH 31.2 pg (25.0-35.0); MCHC 31.8 g/dL (31.0-37.0); MCV 98.1 fL (80.0-100.0); Mean Platelet Volume 7.4; Monocytes # (A) 0.6 k/uL (0-1.0); Monocytes % (A) 7 %; Neutrophils # (A) 6.3 k/uL (1.3-7.7); Neutrophils % (A) 72 %; Platelet Count 251 k/uL (150-450); RBC 3.77 m/uL (3.80-5.40); RDW 13.8 % (11.5-15.5); WBC 8.8 k/uL (3.8-10.6)
[2019-03-10 08:24] LABS: African American GFR (CKD) >90 (>60 ml/min/1.73 sqM); Anion Gap 8 mmol/L; Blood Urea Nitrogen 14 mg/dL (7-17); Calcium 8.7 mg/dL (8.4-10.2); Carbon Dioxide 23 mmol/L (22-30); Chloride 111 mmol/L (98-107); Glucose 84 mg/dL (74-99); Sodium 142 mmol/L (137-145)
[2019-03-10] MEDS ORDERED: ONDANSETRON ODT 4 MG TAB PO PRN (09:13)
[2019-03-10] MEDS ORDERED: oxyCODONE-APAP 5-325MG 1 EACH TAB PO PRN (09:13)
[2019-03-10] MEDS: LISINOPRIL-HCTZ 20-12.5 MG 1 EACH TAB PO SCH (10:02)
[2019-03-10] MEDS: GABAPENTIN 300 MG CAP PO SCH ×3 (10:02→21:09)
[2019-03-10] MEDS: VENLAFAXINE HCL ER 75 MG CAP PO SCH (10:02)
[2019-03-10] MEDS: ATORVASTATIN 40 MG TAB PO SCH (10:02)
[2019-03-10] MEDS ORDERED: PNEUMOCOCCAL VACC-PNEUMOVAX 23 25 MCG/0.5 ML VIAL IM ONE (10:05)
[2019-03-10] MEDS ORDERED: metroNIDAZOLE 500 MG TAB PO SCH (13:00)
[2019-03-10] MEDS: MORPHINE SULFATE 4 MG/ML SYRINGE IV PRN (16:17)
--- NOTE | 2019-03-10 20:07 | P.HPIM ---
History of Present Illness H&P Date: 03/10/19 Chief Complaint: Abdominal pain History of presenting complaint: This is a pleasant 69-year-old patient of Dr. Tripathi. Chronic stable medical conditions include chronic fibromyalgia, chronic low back pain, rheumatoid arthritis, peripheral neuropathy, hyperlipidemia,. In February 2016 patient did have an EGD done by Dr. Aj was found to have Simental's esophagus and colo noscopy showed colonic diverticulosis. Patient also follows with Dr. Olson from the pain clinic, and receives steroid injections. Patient 6 days ago started of with coffee-ground emesis and presented to ER. Was given IV fluids. Hemoglobin was found to be stable. Was discharged home. Following day patient started having diarrhea about 5 times a day and developed abdominal cramping. Also nausea. Patient noticed some low-grade fever. Yesterday patient started having bloody bowel movements with more abdominal cramping. Also had more low- grade fever. Presents to the ER. Computed tomography scan of the abdomen did show colitis. Patient is put on IV antibiotics IV fluids made nothing by mouth and admitted for the same. GI was consulted. Patient's last bowel movement was yesterday evening. Abdominal cramping is a bit better this morning. Patient did have Ivy-fundoplication in the past. Patient only had dropped her blood pressure. Did receive a unit of blood. Also getting IV fluids. Review of systems: GEN.: Tired EYES: None HEENT: None NECK: None RESPIRATORY: None CARDIOVASCULAR: None GASTROINTESTINAL: As above GENITOURINARY: None MUSCULOSKELETAL: Chronic pain in multiple joints LYMPHATICS: None HEMATOLOGICAL: None PSYCHIATRY: Bit anxious NEUROLOGICAL: None Past medical history to include: Fibromyalgia, hyperlipidemia, rheumatoid arthritis, peripheral neuropathy, chronic low back pain, Simental's esophagus, colonic diverticulosis, irritable bowel syndrome, left breast cancer with surgeries and chemotherapy and radiation, cervical cancer with surgery, osteoporosis, T11 spinal surgery, anxiety depression. Social history: Patient smoked for 14 years, stopped in 1977. Patient was an alcoholic for about 21 years ago. Patient did pain medication the remote past. Did crack, heroin, many years ago. Lives alone. Patient been clean for over 22 years Physical examination: VITAL SIGNS: 98.1, 98, 18, 92/70, 98% room air GENERAL: BMI 21.8, laying in bed, tired appearing. EYES: Pupils equal. Conjunctiva palel. HEENT: External appearance of nose and ears normal, oral cavity grossly normal. NECK: JVD not raised; masses not palpable. HEART: First and second heart sounds are normal; no edema. LUNGS: Respiratory rate normal; clear to auscultation. ABDOMEN: Soft, diffuse tenderness, no guarding or rigidity, liver spleen not palpable, no masses palpable. PSYCH: Alert and oriented x3; mood and affect anxiousl. NEUROLOGICAL: Cranial nerves grossly intact; no facial asymmetry, power and sensation grossly intact. LYMPHATICS: No lymph nodes palpable in the axilla and neck INVESTIGATIONS, reviewed in the clinical context: White count 12.6 hemoglobin 13 platelets 331 potassium 4.2 bun 27 creatinine 0.81 Computed tomography scan of the abdomen-diffuse wall thickening of the ascending colon T12-T11 compression fracture up to 35% Assessment: -Acute severe colitis affecting the descending colon, could be infective versus ischemic -Acute blood loss anemia from colitis -Acute hypotension from blood loss anemia, patient requiring unit of blood -Chronic fibromyalgia -Hyperlipidemia -Chronic rheumatoid arthritis -Peripheral neuropathy -Chronic low back pain from T12 T11 compression fracture -Simental's esophagus -Colonic diverticulosis line -anxiety depression Plan: Care was discussed at length with the patient. Plan was discussed. Patient had been made nothing by mouth. Getting IV fluids. Question was hypotensive did get a unit of blood and IV fluids. Patient is on IV ceftriaxone and Flagyl. GI was consulted. Other home medications were resumed. Questions were answered. Repeat labs in the morning. - Past Medical History Past Medical History: Cancer, Fibromyalgia, GERD/Reflux, GI Bleed, Hyperlipidemia, Hypertension, Liver Disease, Osteoarthritis (OA), Rheumatoid Arthritis (RA), Syncope Additional Past Medical History / Comment(s): Past lower GI bleed, diverticulitis, IBS, gastric ulcer, hepatitis A, L breast cancer with surgeries/chemo and radiation, cervical cancer with surgery, bronchitis, osteoporosis, neuropathy bilateral feet and hands, chronic pain, past L humeral fracture, T11 spinal injury, chronic cervical and lumbar back pain, recurrent falls, migraines, osteoarthritis and rheumatoid arthritis in multiple joints History of Any Multi-Drug Resistant Organisms: None Reported Past Surgical History: Section, Hysterectomy, Joint Replacement, Orthopedic Surgery, Tonsillectomy Additional Past Surgical History / Comment(s): ORIF L humerus with carlos/screws since removed, total L shoulder arthroplasty, cervical and lumbar fusions, pain clinic procedures, D&C, bilateral breast reductions with nonhealing wound and had closure/skin grafting, L breast lumpectomies and then L breast mastectomy, R tympanoplasty, EGDs, colonoscopies, ivy fundoplasty, loop recorder. Past Anesthesia/Blood Transfusion Reactions: No Reported Reaction Additional Past Anesthesia/Blood Transfusion Reaction / Comment(s): Pt received blood this admission without reaction. Smoking Status: Former smoker - Past Family History Father Family Medical History: Congestive Heart Failure (CHF), COPD Additional Family Medical History / Comment(s): at age 72 Mother Family Medical History: Myocardial Infarction ([place]) Additional Family Medical History / Comment(s): 1987 age 57 mi Medications and Allergies Home Medications Medication Instructions Recorded Confirmed Type Atorvastatin [Lipitor] 40 mg PO DAILY 03/17/18 03/09/19 History Lisinopril-Hctz 20-12.5 mg 1 tab PO DAILY 03/17/18 03/09/19 History [Zestoretic 20-12.5] Sennosides-Docusate Sodium 1 tab PO BID PRN 06/25/18 03/09/19 History [Senokot-S] Gabapentin [Neurontin] 300 mg PO TID 01/20/19 03/09/19 History oxyCODONE-APAP 5-325MG [Percocet 1 tab PO Q6HR PRN 02/26/19 03/09/19 History 5-325 mg] Omeprazole 40 mg PO DAILY #30 capsule. 03/05/19 03/09/19 Rx Ondansetron Odt [Zofran Odt] 4 mg PO Q8HR PRN #20 tab 03/05/19 03/09/19 Rx Sucralfate [Carafate] 1 gm PO ACHS #30 tablet 03/05/19 03/09/19 Rx Venlafaxine HCl [Effexor XR] 75 mg PO DAILY 03/09/19 03/09/19 History Allergies Allergy/AdvReac Type Severity Reaction Status Date / Time Sulfa (Sulfonamide Allergy Severe Rash/Hives Verified 03/09/19 20:42 Antibiotics) Tetracyclines Allergy Severe Rash/Hives Verified 03/09/19 20:42 latex Allergy Rash/Hives Verified 03/09/19 20:42 lorazepam [From Ativan] AdvReac Confusion Verified 03/09/19 20:42 TIDE AND EXTRA LAUNDRY SOAP Allergy Rash/Hives Uncoded 03/09/19 20:42 Physical Exam Vitals: Vital Signs Temp Pulse Pulse Resp BP BP Pulse Ox 03/10/19 10:02 98.8 F 67 16 116/67 96 03/10/19 08:00 72 17 91/46 97 03/10/19 07:00 70 18 84/66 98 03/10/19 06:30 70 17 87/48 97 03/10/19 06:00 67 18 119/62 99 03/10/19 05:30 69 17 96/58 99 03/10/19 05:00 70 18 94/45 98 03/10/19 04:30 68 18 89/50 97 03/10/19 03:22 97.8 F 69 18 91/46 95 03/10/19 02:45 97.8 F 68 18 94/52 95 03/10/19 02:30 97.7 F 69 16 88/50 96 03/10/19 02:15 97.9 F 69 16 86/49 96 03/10/19 02:00 97.7 F 71 16 83/50 97 03/10/19 01:42 97.6 F 69 18 88/58 95 03/10/19 01:30 98.0 F 73 16 81/46 97 03/10/19 01:05 75 18 84/60 96 03/10/19 00:47 78 18 79/53 97 03/10/19 00:12 78 18 89/56 96 03/09/19 22:32 97.7 F 76 18 99/60 98 03/09/19 22:28 69 16 85/43 100 03/09/19 21:15 77 18 89/53 97 03/09/19 20:00 82 18 88/64 97 03/09/19 19:37 83 18 90/50 98 03/09/19 19:00 81 18 92/45 98 03/09/19 18:18 82 18 101/60 03/09/19 18:00 85 18 94/51 96 03/09/19 17:45 82 18 91/49 96 03/09/19 17:35 85 18 85/57 97 03/09/19 17:20 98.1 F 98 18 92/70 98 Intake and Output 03/09/19 03/10/19 03/10/19 22:59 06:59 14:59 Intake Total 310 Balance 310 Intake: Blood Product 310 Rc Pheresis 2 As3 Unit 310 [id number] Other: Weight 57.606 kg Results CBC & Chem 7: 03/10/19 06:31 03/10/19 06:31 Labs: Abnormal Lab Results - Last 24 Hours (Table) 03/09/19 03/09/19 03/09/19 Range/Units 17:35 17:35 17:35 WBC 12.6 H (3.8-10.6) k/uL RBC (3.80-5.40) m/uL Hgb (11.4-16.0) gm/dL Neutrophils # 9.5 H (1.3-7.7) k/uL Chloride (98-107) mmol/L Carbon Dioxide 21 L (22-30) mmol/L BUN 27 H (7-17) mg/dL Stool Occult Blood Positive H (Negative) Crossmatch 03/09/19 03/09/19 03/10/19 Range/Units 17:35 21:32 06:31 WBC (3.8-10.6) k/uL RBC 3.49 L 3.77 L (3.80-5.40) m/uL Hgb 10.9 L (11.4-16.0) gm/dL Neutrophils # (1.3-7.7) k/uL Chloride (98-107) mmol/L Carbon Dioxide (22-30) mmol/L BUN (7-17) mg/dL Stool Occult Blood (Negative) Crossmatch See Detail 03/10/19 Range/Units 06:31 WBC (3.8-10.6) k/uL RBC (3.80-5.40) m/uL Hgb (11.4-16.0) gm/dL Neutrophils # (1.3-7.7) k/uL Chloride 111 H (98-107) mmol/L Carbon Dioxide (22-30) mmol/L BUN (7-17) mg/dL Stool Occult Blood (Negative) Crossmatch Thrombosis Risk Factor Assmnt - Choose All That Apply Any of the Below Risk Factors Present?: Yes Each Factor Represents 1 point: Hx of IBD Other Risk Factors: Yes Each Risk Factor Represents 2 Points: Age 61-74 years, Malignancy Other congenital or acquired thrombophilia - If yes, enter type in comment: No Thrombosis Risk Factor Assessment Total Risk Factor Score: 5 Thrombosis Risk Factor Assessment Level: High Risk
[2019-03-10] MEDS ORDERED: LEVOFLOXACIN 750MG-D5W PMX 750 MG in DEXTROSE/WATER 1 150ML.BAG IVPB SCH (21:00)
[2019-03-10] MEDS: metroNIDAZOLE 500 MG TAB PO SCH (21:09)
--- NOTE | 2019-03-10 21:32 | P.CONS ---
History of Present Illness - Reason for Consult Consult date: 03/10/19 Colitis Requesting physician: Esau Flannery - Chief Complaint Abdominal pain, diarrhea, blood per rectum - History of Present Illness 69-year-old female with medical history significant for fibromyalgia, chronic low back pain, rheumatoid arthritis, peripheral neuropathy and hyperlipidemia who presented to the hospital with complaints of diarrhea, abdominal pain and blood per rectum. The patient reports 3 days of frequent loose watery bowel movements. She denies any change in medications, sick contacts, or unusual food prior to development of symptoms. She reports that she subsequently developed bloody stool mixed with the bowel movements and then was passing just alexandre blood prior to presentation. No prior similar symptoms in the past. She has been admitted for suspicion of upper GI bleed with EGD in 05/17/2015 significant for a moderate size hiatal hernia and LA grade C esophagitis. She also had endoscopic evaluation in 2016 with EGD significant for a short segment Simental's esophagus and colonoscopy significant for polypectomy. She reports diffuse lower abdominal pain described as sharp and cramping in nature. On presentation to the hospital WBC 8.8, hemoglobin 11.8, [id number] 151,000, INR 0.9, total bilirubin 0.5, alkaline phosphatase 104, AST 23 and ALTs 23. Stool testing was positive for blood. The patient had a computed tomography scan of the abdomen with findings of thickening of the descending colon and proximal sigmoid. Review of Systems REVIEW OF SYSTEMS: CONSTITUTIONAL: Denies any fevers, chills, weight change or fatigue. CARDIOVASCULAR: Denies any chest pain, palpitations high or low blood pressures RESPIRATORY: Denies any shortness of breath, hemoptysis or cough. GENITOURINARY: No dysuria or hematuria. MUSCULOSKELETAL: No weakness reported. SKIN: Denies any new rashes or lesions, jaundice or pallor. PSYCHIATRIC: Denies any new depression or anxiety. NEUROLOGY: Denies headache, denies any new focal deficits. EARS/NOSE/THROAT: No recent hearing change, congestion, nasal discharge or sore throat. EYES: No pain in eyes, discharge or change in vision. GASTROINTESTINAL: As per HPI. Past Medical History Past Medical History: Cancer, Fibromyalgia, GERD/Reflux, GI Bleed, Hyperlipidemia, Hypertension, Liver Disease, Osteoarthritis (OA), Rheumatoid Arthritis (RA), Syncope Additional Past Medical History / Comment(s): Past lower GI bleed, diverticulitis, IBS, gastric ulcer, hepatitis A, L breast cancer with surgeries/chemo and radiation, cervical cancer with surgery, bronchitis, osteoporosis, neuropathy bilateral feet and hands, chronic pain, past L humeral fracture, T11 spinal injury, chronic cervical and lumbar back pain, recurrent falls, migraines, osteoarthritis and rheumatoid arthritis in multiple joints History of Any Multi-Drug Resistant Organisms: None Reported Past Surgical History: Section, Hysterectomy, Joint Replacement, Orthopedic Surgery, Tonsillectomy Additional Past Surgical History / Comment(s): ORIF L humerus with carlos/screws since removed, total L shoulder arthroplasty, cervical and lumbar fusions, pain clinic procedures, D&C, bilateral breast reductions with nonhealing wound and had closure/skin grafting, L breast lumpectomies and then L breast mastectomy, R tympanoplasty, EGDs, colonoscopies, ivy fundoplasty, loop recorder. Past Anesthesia/Blood Transfusion Reactions: No Reported Reaction Additional Past Anesthesia/Blood Transfusion Reaction / Comm: Pt received blood this admission without reaction. Smoking Status: Former smoker - Past Family History Father Family Medical History: Congestive Heart Failure (CHF), COPD Additional Family Medical History / Comment(s): at age 72 Mother Family Medical History: Myocardial Infarction (NH) Additional Family Medical History / Comment(s): 1987 age 57 mi Medications and Allergies Home Medications Medication Instructions Recorded Confirmed Type Atorvastatin [Lipitor] 40 mg PO DAILY 03/17/18 03/09/19 History Lisinopril-Hctz 20-12.5 mg 1 tab PO DAILY 03/17/18 03/09/19 History [Zestoretic 20-12.5] Sennosides-Docusate Sodium 1 tab PO BID PRN 06/25/18 03/09/19 History [Senokot-S] Gabapentin [Neurontin] 300 mg PO TID 01/20/19 03/09/19 History oxyCODONE-APAP 5-325MG [Percocet 1 tab PO Q6HR PRN 02/26/19 03/09/19 History 5-325 mg] Omeprazole 40 mg PO DAILY #30 capsule. 03/05/19 03/09/19 Rx Ondansetron Odt [Zofran Odt] 4 mg PO Q8HR PRN #20 tab 03/05/19 03/09/19 Rx Sucralfate [Carafate] 1 gm PO ACHS #30 tablet 03/05/19 03/09/19 Rx Venlafaxine HCl [Effexor XR] 75 mg PO DAILY 03/09/19 03/09/19 History Allergies Allergy/AdvReac Type Severity Reaction Status Date / Time Sulfa (Sulfonamide Allergy Severe Rash/Hives Verified 03/09/19 20:42 Antibiotics) Tetracyclines Allergy Severe Rash/Hives Verified 03/09/19 20:42 latex Allergy Rash/Hives Verified 03/09/19 20:42 lorazepam [From Ativan] AdvReac Confusion Verified 03/09/19 20:42 TIDE AND EXTRA LAUNDRY SOAP Allergy Rash/Hives Uncoded 03/09/19 20:42 Physical Exam Vitals: Vital Signs Temp Pulse Pulse Resp BP BP Pulse Ox 03/10/19 11:31 98.4 F 77 16 112/72 97 03/10/19 10:02 98.8 F 67 16 116/67 96 03/10/19 08:00 72 17 91/46 97 03/10/19 07:00 70 18 84/66 98 03/10/19 06:30 70 17 87/48 97 03/10/19 06:00 67 18 119/62 99 03/10/19 05:30 69 17 96/58 99 03/10/19 05:00 70 18 94/45 98 03/10/19 04:30 68 18 89/50 97 03/10/19 03:22 97.8 F 69 18 91/46 95 03/10/19 02:45 97.8 F 68 18 94/52 95 03/10/19 02:30 97.7 F 69 16 88/50 96 03/10/19 02:15 97.9 F 69 16 86/49 96 03/10/19 02:00 97.7 F 71 16 83/50 97 03/10/19 01:42 97.6 F 69 18 88/58 95 03/10/19 01:30 98.0 F 73 16 81/46 97 03/10/19 01:05 75 18 84/60 96 03/10/19 00:47 78 18 79/53 97 03/10/19 00:12 78 18 89/56 96 03/09/19 22:32 97.7 F 76 18 99/60 98 03/09/19 22:28 69 16 85/43 100 03/09/19 21:15 77 18 89/53 97 Intake and Output 03/10/19 03/10/19 03/10/19 06:59 14:59 22:59 Intake Total 310 1100 Output Total 1 Balance 310 1099 Intake: Intake, IV Titration 300 Amount Sodium Chloride 0.9% 1, 300 000 ml @ 999 mls/hr IV . Q1H1M [facility] Rx#:[id number] Oral 800 Blood Product 310 Rc Pheresis 2 As3 Unit 310 [id number] Output: Urine 1 On physical examination, patient appears comfortable in no apparent distress. HEAD: Normocephalic, atraumatic. EYES: No scleral icterus. No conjunctival injection. MOUTH: No lesions, tongue midline. NECK: Trachea midline, no gross abnormalities. CHEST: Clear to auscultation with no wheezing or rhonchi appreciated. HEART: Regular rate and rhythm. ABDOMEN: Soft, tender to palpation. Bowel sounds are positive. No organomegaly. No guarding or rigidity. EXTREMITIES: No pedal edema. SKIN: No rashes, no jaundice. NEUROLOGIC: Alert and oriented x3. No focal deficits. Results CBC & Chem 7: 03/10/19 06:31 03/10/19 06:31 Labs: Abnormal Lab Results - Last 24 Hours (Table) 03/09/19 03/09/19 03/10/19 Range/Units 17:35 21:32 06:31 RBC 3.49 L 3.77 L (3.80-5.40) m/uL Hgb 10.9 L (11.4-16.0) gm/dL Chloride (98-107) mmol/L Crossmatch See Detail 03/10/19 Range/Units 06:31 RBC (3.80-5.40) m/uL Hgb (11.4-16.0) gm/dL Chloride 111 H (98-107) mmol/L Crossmatch CT scan - abdomen: report reviewed (computed tomography scan of the abdomen with findings of thickening of the descending colon and proximal sigmoid.) Assessment and Plan (1) Colitis Narrative/Plan: 69-year-old female with multiple medical comorbidities who presented to the hospital with complaints of diarrhea, abdominal pain and blood per rectum. She reports 3 days of frequent watery diarrhea before developing blood mixed with the stool and then alexandre blood. She denies any recent antibiotics, new medications, unusual foods, sick contacts or other exposures. No similar symptoms in the past. Last EGD and colonoscopy were in 2016 and significant for short segment Simental's and polypectomy of multiple polyps. Computed tomography scan performed showed colitis of the descending colon and proximal sigmoid. Unclear etiology with suspicion for infectious etiology or possibly ischemia, with inflammatory process less likely given the acuity of symptoms. Current Visit: Yes Status: Acute Code(s): K52.9 - NONINFECTIVE GASTROENTERITIS AND COLITIS, UNSPECIFIED SNOMED Code(s): 45119771 (2) GI bleed Current Visit: Yes Status: Acute Code(s): K92.2 - GASTROINTESTINAL HEMORRHAGE, UNSPECIFIED SNOMED Code(s): 34962327 Plan: Supportive care Diet advance to full liquids Continue to monitor hemoglobin and transfuse as needed Continue to monitor stool output Continue antibiotic therapy with ceftriaxone and Flagyl IV fluid hydration Pain control No plans for endoscopic evaluation at this time unless patient deteriorates clinically, we'll plan for outpatient colonoscopy in 4-6 weeks after colitis is resolved Thank you for allowing us to participate in the care of the patient we will continue to follow
[2019-03-11] MEDS: MORPHINE SULFATE 4 MG/ML SYRINGE IV PRN ×4 (02:11→20:12)
[2019-03-11] MEDS: PANTOPRAZOLE 40 MG TABLET PO SCH (08:37)
[2019-03-11] MEDS: GABAPENTIN 300 MG CAP PO SCH ×3 (08:37→22:03)
[2019-03-11] MEDS: metroNIDAZOLE 500 MG TAB PO SCH ×4 (08:37→22:03)
[2019-03-11] MEDS: ATORVASTATIN 40 MG TAB PO SCH (08:38)
[2019-03-11] MEDS: VENLAFAXINE HCL ER 75 MG CAP PO SCH (08:39)
[2019-03-11] MEDS: LISINOPRIL-HCTZ 20-12.5 MG 1 EACH TAB PO SCH (08:39)
[2019-03-11] MEDS: ONDANSETRON 4 MG/2 ML VIAL IVP PRN (08:51)
--- NOTE | 2019-03-11 22:09 | P.PN ---
Subjective Progress Note Date: 03/11/19 Principal diagnosis: Colitis Patient lying in bed denying any further bowel movements or blood per rectum. She continues to report abdominal pain. She has tolerated her diet. Objective - Vital Signs Vital signs: Vital Signs Temp 98.3 F 03/11/19 19:26 Pulse 80 03/11/19 19:26 Resp 18 03/11/19 19:26 BP 126/73 03/11/19 19:26 Pulse Ox 94 L 03/11/19 12:13 Intake & Output 03/11/19 03/11/19 03/12/19 06:59 18:59 06:59 Other: Voiding Method Toilet Toilet # Voids 2 # Bowel Movements 0 - Exam On physical examination, patient appears comfortable in no apparent distress. HEAD: Normocephalic, atraumatic. EYES: No scleral icterus. No conjunctival injection. MOUTH: No lesions, tongue midline. NECK: Trachea midline, no gross abnormalities. CHEST: Clear to auscultation with no wheezing or rhonchi appreciated. HEART: Regular rate and rhythm. ABDOMEN: Soft, diffusely tender to palpation. Bowel sounds are positive. No organomegaly. No guarding or rigidity. EXTREMITIES: No pedal edema. SKIN: No rashes, no jaundice. NEUROLOGIC: Alert and oriented x3. No focal deficits. - Labs CBC & Chem 7: 03/10/19 06:31 03/10/19 06:31 Labs: Abnormal Lab Results - Last 24 Hours (Table) 03/09/19 Range/Units 17:35 Crossmatch See Detail Microbiology - Last 24 Hours (Table) 03/09/19 21:10 Blood Culture - Preliminary Blood No Growth after 24 hours Assessment and Plan (1) Colitis Narrative/Plan: 69-year-old female with multiple medical comorbidities who presented to the hospital with complaints of diarrhea, abdominal pain and blood per rectum. She reports 3 days of frequent watery diarrhea before developing blood mixed with the stool and then alexandre blood. She denies any recent antibiotics, new medications, unusual foods, sick contacts or other exposures. No similar symptoms in the past. Last EGD and colonoscopy were in 2016 and significant for short segment Simental's and polypectomy of multiple polyps. Computed tomography scan performed showed colitis of the descending colon and proximal sigmoid. Unclear etiology with suspicion for infectious etiology or possibly ischemia, with inflammatory process less likely given the acuity of symptoms. Current Visit: Yes Status: Acute Code(s): K52.9 - NONINFECTIVE GASTROENTERITIS AND COLITIS, UNSPECIFIED SNOMED Code(s): 84197536 (2) GI bleed Current Visit: Yes Status: Acute Code(s): K92.2 - GASTROINTESTINAL HEMORRHAGE, UNSPECIFIED SNOMED Code(s): 75143271 Plan: Supportive care Diet advance to low fiber, low residual as tolerated Continue to monitor hemoglobin and transfuse as needed Continue to monitor stool output Continue antibiotic therapy with ceftriaxone and Flagyl IV fluid hydration Pain control Bentyl 20 mg 4 times a day as needed for pain added No plans for endoscopic evaluation at this time unless patient deteriorates clinically, we'll plan for outpatient colonoscopy in 4-6 weeks after colitis is resolved Thank you for allowing us to participate in the care of the patient we will continue to follow
[2019-03-11] MEDS: DICYCLOMINE 20 MG TAB PO PRN (22:53)
--- NOTE | 2019-03-12 00:22 | P.PN ---
Progress Note - Text Progress Note Date: 03/11/19 Chief Complaint: Abdominal pain Interval history: This is a pleasant 69-year-old patient of Dr. Tripathi. Chronic stable medical conditions include chronic fibromyalgia, chronic low back pain, rheumatoid arthritis, peripheral neuropathy, hyperlipidemia,. In February 2016 patient did have an EGD done by Dr. Aj was found to have Simental's esophagus and colonoscopy showed colonic diverticulosis. Patient also follows with Dr. Oumou chavez from the pain clinic, and receives steroid injections. Patient 6 days ago started of with coffee-ground emesis and presented to ER. Was given IV fluids. Hemoglobin was found to be stable. Was discharged home. Following day patient started having diarrhea about 5 times a day and developed abdominal cramping. Also nausea. Patient noticed some low-grade fever. Yesterday patient started having bloody bowel movements with more abdominal cramping. Also had more low- grade fever. Presents to the ER. Computed tomography scan of the abdomen did show colitis. Patient is put on IV antibiotics IV fluids made nothing by mouth and admitted for the same. GI was consulted. Patient's last bowel movement was yesterday evening. Abdominal cramping is a bit better this morning. Patient did have Jraek-fundoplication in the past. Patient only had dropped her blood pressure. Did receive a unit of blood. Also getting IV fluids. Admitted with acute colitis Today-feels better. No further vomiting. Did tolerate a liquid diet. No further diarrhea. Decreased abdominal pain. Has been out of bed. Review of systems: Was done for constitutional, cardiovascular, GI, pulmonary. relevant finding as above Active Medications Acetaminophen (Tylenol Tab) 650 mg PO Q6HR PRN PRN Reason: Mild Pain or Fever > 100.5 Atorvastatin Calcium (Lipitor) 40 mg PO DAILY [facility] Last Admin: 03/11/19 08:38 Dose: 40 mg Documented by: Dicyclomine HCl (Bentyl) 20 mg PO QID PRN PRN Reason: Dyspepsia Last Admin: 03/11/19 22:53 Dose: 20 mg Documented by: Gabapentin (Neurontin) 300 mg PO TID [facility] Last Admin: 03/11/19 22:03 Dose: 300 mg Documented by: Lisinopril/HCTZ (Zestoretic 20-12.5) 1 each PO DAILY [facility] Last Admin: 03/11/19 08:39 Dose: 1 each Documented by: Hydromorphone HCl (Dilaudid) 0.5 mg IVP Q3HR PRN PRN Reason: Moderate Pain Last Admin: 03/10/19 10:00 Dose: 0.5 mg Documented by: Ceftriaxone Sodium 1 gm/ (Sodium Chloride) 50 mls @ 100 mls/hr IVPB Q24HR [facility] Last Admin: 03/11/19 08:43 Dose: 100 mls/hr Documented by: Metronidazole (Flagyl) 500 mg PO QID [facility] Last Admin: 03/11/19 22:03 Dose: 500 mg Documented by: Morphine Sulfate (Morphine Sulfate (Inj)) 4 mg IV Q4HR PRN PRN Reason: Severe Pain Last Admin: 03/11/19 20:12 Dose: 4 mg Documented by: Naloxone HCl (Narcan) 0.2 mg IV Q2M PRN PRN Reason: Opioid Reversal Ondansetron HCl (Zofran) 4 mg IVP Q8HR PRN PRN Reason: Nausea And Vomiting Last Admin: 03/11/19 08:51 Dose: 4 mg Documented by: Ondansetron HCl (Zofran Odt) 4 mg PO Q8HR PRN PRN Reason: Nausea Oxycodone/Acetaminophen (Percocet 5-325) 1 each PO Q6HR PRN PRN Reason: Pain Pantoprazole Sodium (Protonix) 40 mg PO AC-BRKFST [facility] Last Admin: 03/11/19 08:37 Dose: 40 mg Documented by: Venlafaxine HCl (Effexor Xr) 75 mg PO DAILY [facility] Last Admin: 03/11/19 08:39 Dose: 75 mg Documented by: Physical examination: VITAL SIGNS: 97.6, 74, 20, 134/7 6, 95% room air GENERAL: BMI 21.8, propped up in bed, looking better today EYES: Pupils equal. Conjunctiva palel. HEENT: External appearance of nose and ears normal, oral cavity grossly normal. NECK: JVD not raised; masses not palpable. HEART: First and second heart sounds are normal; no edema. LUNGS: Respiratory rate normal; clear to auscultation. ABDOMEN: Soft, decreased tenderness, no guarding or rigidity, liver spleen not palpable, no masses palpable. PSYCH: Alert and oriented x3; mood and affect anxiousl. INVESTIGATIONS, reviewed in the clinical context: No labs from today Previous labs White count 12.6 hemoglobin 13 platelets 331 potassium 4.2 bun 27 creatinine 0.81 Computed tomography scan of the abdomen-diffuse wall thickening of the ascending colon T12-T11 compression fracture up to 35% Assessment: -Acute severe colitis affecting the descending colon, could be infective versus ischemic, improving -Acute blood loss anemia from colitis -Acute hypotension from blood loss anemia, patient requiring unit of blood -Chronic fibromyalgia -Hyperlipidemia -Chronic rheumatoid arthritis -Peripheral neuropathy -Chronic low back pain from T12 T11 compression fracture -Simental's esophagus -Colonic diverticulosis -anxiety depression Plan: Continue with antibiotics. Diet to be slowly advanced. Encouraged to be out of bed. Overall doing better. Possible discharge home tomorrow if continues to improve. -
[2019-03-12] MEDS: MORPHINE SULFATE 4 MG/ML SYRINGE IV PRN ×6 (00:56→23:59)
[2019-03-12 05:01] VITALS: RESP 16
[2019-03-12] MEDS: metroNIDAZOLE 500 MG TAB PO SCH ×4 (08:12→21:51)
[2019-03-12] MEDS: ATORVASTATIN 40 MG TAB PO SCH (08:12)
[2019-03-12] MEDS: GABAPENTIN 300 MG CAP PO SCH ×3 (08:12→21:51)
[2019-03-12] MEDS: PANTOPRAZOLE 40 MG TABLET PO SCH (08:12)
[2019-03-12] MEDS: DICYCLOMINE 20 MG TAB PO PRN ×3 (08:13→21:51)
[2019-03-12] MEDS: VENLAFAXINE HCL ER 75 MG CAP PO SCH (08:13)
[2019-03-12] MEDS: LISINOPRIL-HCTZ 20-12.5 MG 1 EACH TAB PO SCH (08:13)
[2019-03-12] MEDS: ONDANSETRON 4 MG/2 ML VIAL IVP PRN (14:48)
--- NOTE | 2019-03-12 20:56 | P.PN ---
Subjective Progress Note Date: 03/12/19 Principal diagnosis: Colitis Patient lying in bed. Overall she states she is doing better, still having some abdominal pain and did report 1 loose bowel movement today. Objective - Vital Signs Vital signs: Vital Signs Temp 97.8 F 03/12/19 04:48 Pulse 58 L 03/12/19 04:48 Resp 16 03/12/19 04:48 BP 109/65 03/12/19 04:48 Pulse Ox 96 03/12/19 04:48 Intake & Output 03/11/19 03/12/19 03/12/19 18:59 06:59 18:59 Intake Total 50 Balance 50 Intake: Intake, IV Titration 50 Amount cefTRIAXone 1 gm In 50 Sodium Chloride 0.9% 50 ml @ 100 mls/hr IVPB Q24HR [facility] Rx#:[id number] Other: Voiding Method Toilet Toilet Toilet # Voids 2 1 4 # Bowel Movements 1 - Exam On physical examination, patient appears comfortable in no apparent distress. HEAD: Normocephalic, atraumatic. EYES: No scleral icterus. No conjunctival injection. MOUTH: No lesions, tongue midline. NECK: Trachea midline, no gross abnormalities. CHEST: Clear to auscultation with no wheezing or rhonchi appreciated. HEART: Regular rate and rhythm. ABDOMEN: Soft, diffusely tender to palpation. Bowel sounds are positive. No organomegaly. No guarding or rigidity. EXTREMITIES: No pedal edema. SKIN: No rashes, no jaundice. NEUROLOGIC: Alert and oriented x3. No focal deficits. - Labs CBC & Chem 7: 03/10/19 06:31 03/10/19 06:31 Labs: Microbiology - Last 24 Hours (Table) 03/09/19 21:10 Blood Culture - Preliminary Blood No Growth after 48 hours Assessment and Plan (1) Colitis Narrative/Plan: 69-year-old female with multiple medical comorbidities who presented to the hospital with complaints of diarrhea, abdominal pain and blood per rectum. She reports 3 days of frequent watery diarrhea before developing blood mixed with the stool and then alexandre blood. She denies any recent antibiotics, new medications, unusual foods, sick contacts or other exposures. No similar s ymptoms in the past. Last EGD and colonoscopy were in 2016 and significant for short segment Simental's and polypectomy of multiple polyps. Computed tomography scan performed showed colitis of the descending colon and proximal sigmoid. Unclear etiology with suspicion for infectious etiology or possibly ischemia, with inflammatory process less likely given the acuity of symptoms. Current Visit: Yes Status: Acute Code(s): K52.9 - NONINFECTIVE GASTROENTERITIS AND COLITIS, UNSPECIFIED SNOMED Code(s): 81504224 (2) GI bleed Current Visit: Yes Status: Acute Code(s): K92.2 - GASTROINTESTINAL HEMO RRHAGE, UNSPECIFIED SNOMED Code(s): 83491757 Plan: Supportive care Diet advance to low fiber, low residual as tolerated Continue to monitor hemoglobin and transfuse as needed Continue to monitor stool output Continue antibiotic therapy with ceftriaxone and Flagyl IV fluid hydration Pain control Bentyl 20 mg 4 times a day as needed for pain No plans for endoscopic evaluation, we'll plan for outpatient colonoscopy in 4-6 weeks after colitis is resolved Thank you for allowing us to participate in the care of the patient we will continue to follow
--- NOTE | 2019-03-12 23:06 | P.PN ---
Progress Note - Text Progress Note Date: 03/12/19 Chief Complaint: Abdominal pain Interval history: This is a pleasant 69-year-old patient of Dr. Tripathi. Chronic stable medical conditions include chronic fibromyalgia, chronic low back pain, rheumatoid arthritis, peripheral neuropathy, hyperlipidemia,. In February 2016 patient did have an EGD done by Dr. Aj was found to have Simental's esophagus and colonoscopy showed colonic diverticulosis. Patient also follows with Dr. Oumou chavez from the pain clinic, and receives steroid injections. Patient 6 days ago started of with coffee-ground emesis and presented to ER. Was given IV fluids. Hemoglobin was found to be stable. Was discharged home. Following day patient started having diarrhea about 5 times a day and developed abdominal cramping. Also nausea. Patient noticed some low-grade fever. Yesterday patient started having bloody bowel movements with more abdominal cramping. Also had more low- grade fever. Presents to the ER. Computed tomography scan of the abdomen did show colitis. Patient is put on IV antibiotics IV fluids made nothing by mouth and admitted for the same. GI was consulted. Patient's last bowel movement was yesterday evening. Abdominal cramping is a bit better this morning. Patient did have Jarek-fundoplication in the past. Patient only had dropped her blood pressure. Did receive a unit of blood. Also getting IV fluids. Admitted with acute colitis Today-doing much better. Starting a soft bland diet. No vomiting. No fever no chills. Up to the bathroom. Requested to stay back for another day Review of systems: Was done for constitutional, cardiovascular, GI, pulmonary. relevant finding as above Active Medications Acetaminophen (Tylenol Tab) 650 mg PO Q6HR PRN PRN Reason: Mild Pain or Fever > 100.5 Atorvastatin Calcium (Lipitor) 40 mg PO DAILY [facility] Last Admin: 03/12/19 08:12 Dose: 40 mg Documented by: Dicyclomine HCl (Bentyl) 20 mg PO QID PRN PRN Reason: Dyspepsia Last Admin: 03/12/19 21:51 Dose: 20 mg Documented by: Gabapentin (Neurontin) 300 mg PO TID [facility] Last Admin: 03/12/19 21:51 Dose: 300 mg Documented by: Lisinopril/HCTZ (Zestoretic 20-12.5) 1 each PO DAILY [facility] Last Admin: 03/12/19 08:13 Dose: 1 each Documented by: Hydromorphone HCl (Dilaudid) 0.5 mg IVP Q3HR PRN PRN Reason: Moderate Pain Last Admin: 03/10/19 10:00 Dose: 0.5 mg Documented by: Ceftriaxone Sodium 1 gm/ (Sodium Chloride) 50 mls @ 100 mls/hr IVPB Q24HR [facility] Last Admin: 03/12/19 08:12 Dose: 100 mls/hr Documented by: Metronidazole (Flagyl) 500 mg PO QID [facility] Last Admin: 03/12/19 21:51 Dose: 500 mg Documented by: Morphine Sulfate (Morphine Sulfate (Inj)) 4 mg IV Q4HR PRN PRN Reason: Severe Pain Last Admin: 03/12/19 19:33 Dose: 4 mg Documented by: Naloxone HCl (Narcan) 0.2 mg IV Q2M PRN PRN Reason: Opioid Reversal Ondansetron HCl (Zofran) 4 mg IVP Q8HR PRN PRN Reason: Nausea And Vomiting Last Admin: 03/12/19 14:48 Dose: 4 mg Documented by: Ondansetron HCl (Zofran Odt) 4 mg PO Q8HR PRN PRN Reason: Nausea Oxycodone/Acetaminophen (Percocet 5-325) 1 each PO Q6HR PRN PRN Reason: Pain Pantoprazole Sodium (Protonix) 40 mg PO AC-BRKFST [facility] Last Admin: 03/12/19 08:12 Dose: 40 mg Documented by: Venlafaxine HCl (Effexor Xr) 75 mg PO DAILY [facility] Last Admin: 03/12/19 08:13 Dose: 75 mg Documented by: Physical examination: VITAL SIGNS: 97.8, 58, 16, 109/65, 96% room air GENERAL: BMI 21.8, laying in bed, appears more comfortable EYES: Pupils equal. Conjunctiva palel. HEENT: External appearance of nose and ears normal, oral cavity grossly normal. NECK: JVD not raised; masses not palpable. HEART: First and second heart sounds are normal; no edema. LUNGS: Respiratory rate normal; clear to auscultation. ABDOMEN: Soft, no tenderness, no guarding or rigidity, liver spleen not palpable, no masses palpable. PSYCH: Alert and oriented x3; mood and affect anxiousl. INVESTIGATIONS, reviewed in the clinical context: white count 8.8 from March 10 Previous labs White count 12.6 hemoglobin 13 platelets 331 potassium 4.2 bun 27 creatinine 0.81 Computed tomography scan of the abdomen-diffuse wall thickening of the ascending colon T12-T11 compression fracture up to 35% Assessment: -Acute severe colitis affecting the descending colon, could be infective versus ischemic,clinically much improved -Acute blood loss anemia from colitis -Acute hypotension from blood loss anemia, patient requiring unit of blood -Chronic fibromyalgia -Hyperlipidemia -Chronic rheumatoid arthritis -Peripheral neuropathy -Chronic low back pain from T12 T11 compression fracture -Simental's esophagus -Colonic diverticulosis -anxiety depression Plan: patient requests to stay another day. Did inform the patient that she is clinically much better. Can be comfortably go home on oral antibiotics. I did explain to her about my concern about secondary infection of the hospital. She is no white count no fever tolerated diet did much better. Discharge has been held. -
[2019-03-13] MEDS: MORPHINE SULFATE 4 MG/ML SYRINGE IV PRN ×2 (05:05→09:16)
[2019-03-13 05:30] VITALS: BP 111/70; PULSE 62; TEMP 97.9
[2019-03-13] MEDS: LISINOPRIL-HCTZ 20-12.5 MG 1 EACH TAB PO SCH (08:10)
[2019-03-13] MEDS: VENLAFAXINE HCL ER 75 MG CAP PO SCH (08:10)
[2019-03-13] MEDS: metroNIDAZOLE 500 MG TAB PO SCH ×2 (08:10→12:55)
[2019-03-13] MEDS: GABAPENTIN 300 MG CAP PO SCH (08:10)
[2019-03-13] MEDS: ATORVASTATIN 40 MG TAB PO SCH (08:10)
[2019-03-13] MEDS: PANTOPRAZOLE 40 MG TABLET PO SCH (08:10)
[2019-03-13] MEDS: DICYCLOMINE 20 MG TAB PO PRN (10:14)
--- NOTE | 2019-03-13 20:56 | P.DS ---
Providers Date of admission: 03/09/19 20:17 Expected date of discharge: 03/13/19 Attending physician: Esau Flannery Consults: 03/09/19 20:56 Consult Physician Stat Consulting Provider: Bg Haddad Reason/Comments: GI bleed, colitis Do you want consulting provider notified?: Yes Primary care physician: Easton Tripathi [facility] Course: Chief Complaint: Abdominal pain Hospital course: This is a pleasant 69-year-old patient of Dr. Tripathi. Chronic stable medical conditions include chronic fibromyalgia, chronic low back pain, rheumatoid a rthritis, peripheral neuropathy, hyperlipidemia,. In February 2016 patient did have an EGD done by Dr. Aj was found to have Simental's esophagus and colonoscopy showed colonic diverticulosis. Patient also follows with Dr. Oumou chavez from the pain clinic, and receives steroid injections. Patient 6 days ago started of with coffee-ground emesis and presented to ER. Was given IV fluids. Hemoglobin was found to be stable. Was discharged home. Following day patient started having diarrhea about 5 times a day and developed abdominal cramping. Also nausea. Patient noticed some low-grade fever. Yesterday patient started having bloody bowel movements with more abdominal cramping. Also had more low- grade fever. Presents to the ER. Computed tomography scan of the abdomen did show colitis. Patient is put on IV antibiotics IV fluids made nothing by mouth and admitted for the same. GI was consulted. Patient's last bowel movement was yesterday evening. Abdominal cramping is a bit better this morning. Patient did have Jarek-fundoplication in the past. Patient only had dropped her blood pressure. Did receive a unit of blood. Also getting IV fluids. Admitted with acute colitis Did well with a scaled back diet, IV fluids IV antibiotics. Doing much better by the time of discharge. Abdominal pain resolved. No fever no chills. Cleared by GI. Consultation: Dr. Lee from GI Physical examination: VITAL SIGNS: 97.9, 62, 16, 11 1/70, 95% room air GENERAL: Laying in bed, comfortable EYES: Pupils equal. Conjunctiva palel. HEENT: External appearance of nose and ears normal, oral cavity grossly normal. NECK: JVD not raised; masses not palpable. HEART: First and second heart sounds are normal; no edema. LUNGS: Respiratory rate normal; clear to auscultation. ABDOMEN: Soft, no tenderness, no guarding or rigidity, liver spleen not palpable, no masses palpable. PSYCH: Alert and oriented x3; mood and affect anxiousl. INVESTIGATIONS, reviewed in the clinical context: white count 8.8 from March 10 Previous labs White count 12.6 hemoglobin 13 platelets 331 potassium 4.2 bun 27 creatinine 0.81 Computed tomography scan of the abdomen-diffuse wall thickening of the ascending colon T12-T11 compression fracture up to 35% Discharge diagnosis: -Acute severe colitis affecting the descending colon, could be infective versus ischemic,clinically much improved -Acute blood loss anemia from colitis -Acute hypotension from blood loss anemia, patient requiring unit of blood -Chronic fibromyalgia -Hyperlipidemia -Chronic rheumatoid arthritis -Peripheral neuropathy -Chronic low back pain from T12 T11 compression fracture -Simental's esophagus -Colonic diverticulosis -anxiety depression Disposition: Home. - Patient Condition at Discharge: Stable Plan - Discharge Summary Discharge Rx Participant: No New Discharge Prescriptions: New Dicyclomine [Bentyl] 20 mg PO QID PRN #30 tab PRN Reason: Dyspepsia Cefuroxime Axetil [Ceftin] 500 mg PO BID #14 tab metroNIDAZOLE [Flagyl] 500 mg PO QID #28 tab Continue Lisinopril-Hctz 20-12.5 mg [Zestoretic 20-12.5] 1 tab PO DAILY Atorvastatin [Lipitor] 40 mg PO DAILY Sennosides-Docusate Sodium [Senokot-S] 1 tab PO BID PRN PRN Reason: Constipation Gabapentin [Neurontin] 300 mg PO TID oxyCODONE-APAP 5-325MG [Percocet 5-325 mg] 1 tab PO Q6HR PRN PRN Reason: Pain Omeprazole 40 mg PO DAILY #30 capsule. Ondansetron Odt [Zofran ODT] 4 mg PO Q8HR PRN #20 tab PRN Reason: Nausea Venlafaxine HCl [Effexor XR] 75 mg PO DAILY Discontinued Sucralfate [Carafate] 1 gm PO ACHS #30 tablet Discharge Medication List Atorvastatin [Lipitor] 40 mg PO DAILY 03/17/18 [History] Lisinopril-Hctz 20-12.5 mg [Zestoretic 20-12.5] 1 tab PO DAILY 03/17/18 [History] Sennosides-Docusate Sodium [Senokot-S] 1 tab PO BID PRN 06/25/18 [History] Gabapentin [Neurontin] 300 mg PO TID 01/20/19 [History] oxyCODONE-APAP 5-325MG [Percocet 5-325 mg] 1 tab PO Q6HR PRN 02/26/19 [History] Omeprazole 40 mg PO DAILY #30 capsule. 03/05/19 [Rx] Ondansetron Odt [Zofran ODT] 4 mg PO Q8HR PRN #20 tab 03/05/19 [Rx] Venlafaxine HCl [Effexor XR] 75 mg PO DAILY 03/09/19 [History] Cefuroxime Axetil [Ceftin] 500 mg PO BID #14 tab 03/12/19 [Rx] Dicyclomine [Bentyl] 20 mg PO QID PRN #30 tab 03/12/19 [Rx] metroNIDAZOLE [Flagyl] 500 mg PO QID #28 tab 03/12/19 [Rx] Follow up Appointment(s)/Referral(s): Easton Tripathi DO [Primary Care Provider] - 03/18/19 2:00 pm (With COY Miller.) Bg Haddad MD [STAFF PHYSICIAN] - 04/14/19 1:30 pm () Patient Instructions/Handouts: Cefuroxime (By mouth), Dicyclomine (By mouth), Metronidazole (By mouth), Infectious Colitis (GEN) Activity/Diet/Wound Care/Special Instructions: Soft bland diet Discharge Disposition: HOME SELF-CARE
== END 2019-03-13 14:30 | disposition home or self-care (01) ==
LOC: EC 17:13 → 3NMEDONC 20:17
PROVIDERS: ADMIT Hospitalist; ATTEND Hospitalist
DX: K52.9 Noninfective gastroenteritis and colitis, unspecified (principal); D62 Acute posthemorrhagic anemia; I95.9 Hypotension, unspecified; K57.30 Diverticulosis of large intestine without perforation or abscess without bleeding; K22.70 Barrett's esophagus without dysplasia; E78.5 Hyperlipidemia, unspecified; M79.7 Fibromyalgia; G62.9 Polyneuropathy, unspecified; M48.54XA Collapsed vertebra, not elsewhere classified, thoracic region, initial encounter for fracture; G89.29 Other chronic pain; M54.5 Low back pain; J44.9 Chronic obstructive pulmonary disease, unspecified; I10 Essential (primary) hypertension; B15.9 Hepatitis A without hepatic coma; M06.9 Rheumatoid arthritis, unspecified; F32.9 Major depressive disorder, single episode, unspecified; F41.9 Anxiety disorder, unspecified; Z23 Encounter for immunization; F43.10 Post-traumatic stress disorder, unspecified; F41.0 Panic disorder [episodic paroxysmal anxiety]; M81.0 Age-related osteoporosis without current pathological fracture; M19.90 Unspecified osteoarthritis, unspecified site; G43.909 Migraine, unspecified, not intractable, without status migrainosus; K62.5 Hemorrhage of anus and rectum; F11.20 Opioid dependence, uncomplicated; Z79.899 Other long term (current) drug therapy; Z88.1 Allergy status to other antibiotic agents; Z91.040 Latex allergy status; Z88.2 Allergy status to sulfonamides; Z88.8 Allergy status to other drugs, medicaments and biological substances; Z91.048 Other nonmedicinal substance allergy status; Z87.891 Personal history of nicotine dependence; Z87.19 Personal history of other diseases of the digestive system; Z86.79 Personal history of other diseases of the circulatory system; Z87.81 Personal history of (healed) traumatic fracture; Z92.21 Personal history of antineoplastic chemotherapy; Z92.3 Personal history of irradiation; Z85.41 Personal history of malignant neoplasm of cervix uteri; Z85.3 Personal history of malignant neoplasm of breast; R29.6 Repeated falls; Z98.1 Arthrodesis status; Z90.710 Acquired absence of both cervix and uterus; Z90.12 Acquired absence of left breast and nipple; Z98.42 Cataract extraction status, left eye; Z98.41 Cataract extraction status, right eye; Z82.49 Family history of ischemic heart disease and other diseases of the circulatory system; Z82.5 Family history of asthma and other chronic lower respiratory diseases
CPT/HCPCS: 96376 ×5; 96361 ×2; 96366 ×3; 96367 ×2; 96375 ×2; 96365; 99285; 36415; 86900; 86901; 80053; 80048; 83605; 83735; 84484; 85025 ×2; 85610; 85730; 86850; 86920; 82272; 81003; 87040; 74177; 90732; G0378 ×5; P9016; G0009; J2270 ×5; J2405 ×3; J0696 ×4; J1956; C9113 ×2; J1170; Q9967

== ENCOUNTER → 2019-03-24 | Outpatient (CLI) | payer MEDICARE ==
[2019-03-24 12:35] VITALS: BP 171/95; PULSE 62; RESP 16
--- NOTE | 2019-05-20 11:50 | P.PN ---
Subjective Progress Note Date: 03/24/19 This is a 69-year-old lady with history of rheumatoid arthritis, cervical and lumbar spondylosis without myelopathy, and cervical radiculopathy. The patient was admitted recently for light this and she is on a course of Flagyl at this point. She has increasing pain in her right shoulder and right hip plus her lower back. She also has neuropathy in both feet and history of fibromyalgia. The patient was not able to get an MRI on the right hip because of her admission to the hospital. The patient has been using more Percocet because we decreased her dose last time we saw her. Patient denies new-onset weakness, bowel/bladder incontinence, or any other signs or symptoms of cauda equina syndrome. There are no signs of acute intoxication, and no indications of medication diversion or overuse. In addition to above, 13-point review of systems is also negative for chest pain, shortness of breath, changes in vision, changes in hearing, new onset weakness, abdominal pain, diarrhea, extreme fatigue, malaise, fever, skin changes, homicidal or suicidal ideation, or bowel or bladder incontinence. Vital Signs: Reviewed in EMR Gen: AAOx3, NAD HEENT: PERRLA,hearing grossly normal Pulm: resp unlabored Heart: Regular Neck: supple, trachea midline Neuro exam of the lower extremities: Straight leg raising test: Lakhwinder's test: Range of motion of the lumbar spine: Facet loading test: Tenderness in the paravertebral musculature: Positive tenderness in the lumbar paravertebral musculature bilaterally Positive tenderness around the right greater trochanter Manipulation of the right hip joint increased her hip pain She has decreased range of motion of the right shoulder joint elicits to 90 of abduction and severe tenderness on the anterior and posterior aspects of the right shoulder joint. Neuro: CN II-XII grossly intact, Imaging: Reviewed in EMR/chart Assessment: Right hip osteoarthritis Right shoulder arthralgia with possible rotator cuff tear Cervical and lumbar spondylosis without myelopathy Cervical radiculopathy Fibromyalgia Peripheral neuropathy Opioid dependence Plan: 1. Explanation: Opioid and psychological risk scores were reviewed. Diagnoses, prognoses, and multiple treatment options including but not limited to physical therapy, interventional therapies, adjuvant medical therapies, narcotic medication therapies, and surgery were discussed with the patient and all questions were answered to the patient's satisfaction. 2. Opioid agreement: Signed with the patient and the patient is warned not to use opioids while driving or before driving and not to combine opioids with benzodiazepines or alcohol. 3. Counseling: The patient was counseled extensively on SMOKING CESSATION, BODY MASS INDEX, EXERCISE. Specifically, the patient was instructed regarding the importance of smoking cessation, obesity, and exercise in the context of both chronic pain and overall health. 4. Procedures: We will cancel her cervical epidural at this point until she finishes her flagyl course 5. Consultations: None 6. Investigations: Right shoulder and right hip MRI 7. Medications: Continue Percocet 5 mg 4 times a day as needed for pain and increase his Neurontin to 300 mg 4 times a day 8. Disposition: Return to clinic in 4 weeks 9. Maps were reviewed and were appropriate. Controlled Substance Measures Is patient prescribed a controlled substance at discharge?: Yes When asked, does pt state using other controlled substances?: No If prescribed controlled substance>3 days was MAPS reviewed?: Yes If Rx opioid, was Start Talking consent form obtained?: Yes If opioid is for acute pain is fill amount 7 days or less?: No Was information provided regarding opioid addiction?: Yes
== END | disposition home or self-care (01) ==
LOC: PNWHC3 11:33
PROVIDERS: ATTEND Anesthesiology
DX: M16.11 Unilateral primary osteoarthritis, right hip (principal); M25.511 Pain in right shoulder; M47.22 Other spondylosis with radiculopathy, cervical region; M47.816 Spondylosis without myelopathy or radiculopathy, lumbar region; M79.7 Fibromyalgia; G62.9 Polyneuropathy, unspecified; F11.20 Opioid dependence, uncomplicated; Z79.899 Other long term (current) drug therapy
CPT/HCPCS: 99211

== ENCOUNTER → 2019-05-08 | Outpatient (CLI) | payer MEDICARE ==
[2019-05-08 10:56] VITALS: BP 147/84; PULSE 78; RESP 16
--- NOTE | 2019-05-08 11:33 | P.PAINPG ---
Subjective Progress Note Date: 05/08/19 This is follow-up visit for this patient with a history of severe and chronic low back pain, and neck pain pain and left shoulder pain diagnosed with cervical radiculopathy, and lumbar spondylosis with lumbar facet arthropathy previously we have done cervical epidural steroid injection and radiofrequency ablation of the medial branch lumbar area Patients currently on , Percocet 5/325 every 6 hours, Neurontin 300 mg 3 times a day, and she reported the current medication is not helping her low back pain she reported that her low back pain increased significantly over the last few weeks and pain more severe on the left side, she is able to ambulate on her own, Patient denies any side effects of the medication, denies excessive drowsiness or sleepiness, denies suicidal ideation. Patient denies any motor or sensory deficit , patient denies any fever or night sweats, denies any change in the bowel movements or urination Objective - Vital Signs Vital signs: Vital Signs Temp Pulse 78 05/08/19 10:47 Resp 16 05/08/19 10:47 BP 147/84 05/08/19 10:47 Pulse Ox 97 05/08/19 10:47 Intake & Output 05/07/19 05/08/19 05/08/19 18:59 06:59 18:59 Weight 54.431 kg - Exam Physical Examinations : -Constitutiona : Cooperative , not in acute distress . -HEENT : nech : supple , no Lymphadenopathy , normal thyroid size . : eyes : no ptosis , no icterus, no photophobia . : ENT : normal of hearing , normal orophar ynx , no Thrush . - Respiratory : Chest clear to auscultations Bilaterally , no wheezing , no Rhonchi . - Cardiovascula : regular rate and rhythem , S1 , S2 , no S3 , no S4. - Gastrointestina : abdomen soft no tenderness , bowel sounds , no organomegally . - Genitourinary : Defferred . - neurologic : Cranial nerve II to XII intact , no focal neurological deffecit . -psychatric : alert , oriented X 3 , appropriate affect , intact judgment and insight . -Lymphatic : no Lymphadenopathy . - musculoskeltal : Cervical Spine motor stregnth in the deltoid and biceps, normal right side , normal Left side motor stregnth biceps and the wrist extensors normal right side ,normal left side . motor stregnth in the triceps muscle . normal Right side , normal Left side deep tendon reflexes normal at the biceps , normal at Brachioradialis , normal at triceps. cervical facet loading test: Positive Bilaterally Spurling test positive bilaterally. Neck distraction test positive bilaterally. Zeus sign positive bilaterally. Pain with the abduction and extension of the left shoulder Lumber spine moter stegnth lower extremities ,thigh and legs 5/5 Right side , 5/5 Left side deep tendon reflexes : normal Knee Jerk , normal ankle Jerk lumber facet Loading Test =positive Right , posiutive Left Range of motion of the lumbar spine Flexion 30 degrees, extension 10 degrees strait leg raising test = positive at 30 degree Fabere test= positive Right , and positive LT . tenderness over the Sacroiliac joint on the Right , and Left sides Assessment and Plan Plan: Assessment and plan= chronic low back pain secondary to , lumbar spondylosis with lumbar facet arthropathy . Cervical radiculopathy chronic and current use of high-risk medication (opioids) Patient denies any side effects of the current pain medication and the current treatment/medication helping the patient to do activity of daily living , Diagnoses, prognosis, treatment options, including but not limited to physical therapy, medication management, interventional therapies, and surgery, were discussed with the patient All the questions answered The narcotic consent was signed and patient agreed and understood the side effects and complications of opioid treatment. Patient signed the narcotic agreement, and was orally counseled, not to overuse, not to abuse, not to Divert , not tp sell pain medication, and to take it as prescribed only, Patient was counseled not to drive or operate heavy equipment while using narcotic medication, and advised not to use alcohol or any Illicit drugs while using the narcotis. understanding that lack of compliance with any of the above instructions, will likely to cause discharge from, the pain service, not to renew his narcotic prescriptions MAPS Reviwed and it was apropriate . Medication managements= patient will be given prescription refills for Percocet 5/325 every 6 hours dispense 120 with one refill, Neurontin 300 mg 3 times a day dispense 90 with 1 refill Interventions= patient would be good candidate to have radiofrequency thermocoagulation of the left-sided medial branch L3/L4/L5 , and later on , we can do the right side , Time with Patient: Less than 30 PQRS Measure Charge Sheet Measure #130: Documentation of Current Meds in Medical Chart: Patient's medications documented in chart Measure #226: Tobacco Use: Screen & Cessation Intervention: Pt not a tobacco user Measure #111: Pneumonia Vaccination: Pneumococcal vaccine administered or previously received Measure #47: Advance Care Plan: Advance care planning discussed & documented, pt chose/unable to give Measure #412: Opioid Treatment Agreement: Documented signed opioid trtmnt agreemnt min once during opioid trtmnt Measure #408: Opioid Therapy Follow-up Evaluation: Patient had f/u eval minimum every 3 months during opioid therapy Measure #317: Preventitive Care & Scrn High Bld Press & F/U: Pre-hypertensive or hypertensive BP documented, pt will f/u with PCP Measure #128: Body Mass Index (BMI) Screening & Follow-up: BMI documented within normal parameters Measure #131: Pain Assessment & Follow-up: Pain positive & plan documented, Follow-up scheduled Measure #431: Unhealthy Alcohol Use Preventative Care & Scrn: Patient not identified as an unhealthy alcohol user PQRS Narrative: Smoking Status Former smoker Narcotic Agreement Date Signed 05/08/19 Blood Pressure 147/84 Pain Intensity [Bilateral 6 Posterior Neck] Pain Intensity [Lower Back] 8 Scale Used Numeric (1 - 10) Hx Alcohol Use (MH) No Home Medications: Ambulatory Orders Atorvastatin [Lipitor] 40 mg PO DAILY 03/17/18 Lisinopril-Hctz 20-12.5 mg [Zestoretic 20-12.5] 1 tab PO DAILY 03/17/18 Sennosides-Docusate Sodium [Senokot-S] 1 tab PO BID PRN 06/25/18 Ondansetron Odt [Zofran ODT] 4 mg PO Q8HR PRN #20 tab 03/05/19 Venlafaxine HCl [Effexor XR] 150 mg PO DAILY 03/09/19 Dicyclomine [Bentyl] 20 mg PO QID PRN #30 tab 03/12/19 Omeprazole 40 mg PO DAILY PRN 03/18/19 Tylenol,Aspirn,Caffeine Guajardo 2 tab PO Q4H PRN 05/06/19 Gabapentin [Neurontin] 300 mg PO TID #90 cap 05/08/19 oxyCODONE HCL/ACETAMINOPHEN [Percocet 5-325 mg] 1 tab PO Q6HR PRN 30 Days #120 tab 05/08/19 oxyCODONE-APAP 5-325MG [Percocet 5-325 mg] 1 tab PO Q6HR PRN #120 tab 05/08/19 Controlled Substance Measures - Controlled Substance Measures Is patient prescribed a controlled substance at discharge?: Yes When asked, does pt state using other controlled substances?: No If prescribed controlled substance>3 days was MAPS reviewed?: Yes If Rx opioid, was Start Talking consent form obtained?: Yes If opioid is for acute pain is fill amount 7 days or less?: No Was information provided regarding opioid addiction?: Yes
== END | disposition home or self-care (01) ==
LOC: PNWHC3 10:33
PROVIDERS: ATTEND Specialist
DX: M47.816 Spondylosis without myelopathy or radiculopathy, lumbar region (principal); M46.96 Unspecified inflammatory spondylopathy, lumbar region; G89.29 Other chronic pain; M54.12 Radiculopathy, cervical region; Z87.891 Personal history of nicotine dependence; Z79.891 Long term (current) use of opiate analgesic; Z79.899 Other long term (current) drug therapy
CPT/HCPCS: 99211

== ENCOUNTER 2019-06-02 07:22 | Day surgery (SDC) | payer MEDICARE ==
[2019-05-30 08:39] VITALS: BMI 20.5
[~2019-06-02 07:22] MED LIST changes: -IV FLUID CONTINUATION 700 ML IV ONE; -LACTATED RINGERS 1,000 ML IV ONE; -LIDOCAINE 1% 20 ML VIAL (10MG/ML) FOR IV START INTRADERMA ONE; +LIDOCAINE 1% 20 ML VIAL (10MG/ML) FOR IV START INTRADERMA PRN
[2019-06-02 07:45] VITALS: RESP 16; TEMP 97
[2019-06-02] MEDS ORDERED: PROPOFOL 10 MG/ML 20 ML VIAL IV ONE (08:03)
--- NOTE | 2019-06-02 08:51 | P.PCN ---
Date of Procedure: 06/02/19 Description of Procedure: Brief History: 69-year-old female presents for EGD and colonoscopy for evaluation of GERD and recent hospitalization for colitis. Last colonoscopy3 years ago and significant polypectomy. Recent hospitalization with findings of colitis. Patient also reports reflux with frequent symptoms in spite of daily omeprazole therapy. Procedure performed: Esophagogastroduodenoscopy with biopsy Colonoscopy With polypectomy Estimated blood loss: Minimal. Preoperative diagnosis: GERD, colitis, last colonoscopy 3 years ago with polypectomy Anesthesia: [facility] [place] Procedure: After informed consent was obtained from the patient was brought into the endoscopy unit and IV sedation was administered by anesthesia under continuous monitoring. Initially upper endoscopy was done. The Olympus GF 190 video endoscope was inserted into the mouth and esophagus intubated without any difficulty and was gradually advanced into the stomach and duodenum and carefully examined. The bulb and second part of the duodenum appeared normal, with biopsies taken. The scope was then withdrawn into the stomach adequately insufflated with air and upon careful examination the antrum and body, cardia and fundus appeared normal except for erythema and superficial erosions in the antrum and body suggestive of moderate gastritis with biopsies of antrum and body taken. The scope was then withdrawn into the esophagus. The GE junction was located at 35 cm to the incisors and biopsied. It appeared regular with no erythema erosions or ulcerations. Rest of the esophagus appeared normal. Patient tolerated the procedure well. At this time the patient continued to remain sedation. Initial digital rectal examination was normal. Olympus pediatric video colonoscope was then inserted into the rectum and gradually advanced to the cecum without any difficulty. Careful examination was performed as the scope was gradually being withdrawn. The prep was excellent. The cecum, ascending colon, transverse colon, descending colon, sigmoid colon and rectum appeared normal. 2 diminutive 2 mm transverse colon polyp removed with cold forcep polypectomy. Multiple sigmoid diverticula noted consistent with moderate sigmoid diverticulosis. Retroflexion was performed in the rectum and no lesions were noted. Patient tolerated the procedure well. Impression: 1. Moderate gastritis antrum and body, biopsied. Biopsies of the duodenum and GE junction. 2. Two diminutive transverse colon polyp removed with cold forceps. Moderate sigmoid diverticulosis. No evidence of colitis to correlate with previous computed tomography scan findings. Recommendations: Findings of this examination were discussed with the patient as well as her sister. Okay to resume diet. Okay to resume medications. Avoid NSAID use. Can consider increasing PPI to twice daily for symptomatic relief. Await pathology from biopsies. Would recommend repeat colonoscopy in 5 years given personal history of colon polyps.
[2019-06-02 09:08] VITALS: BP 105/54; PULSE 62
== END 2019-06-02 09:20 | disposition home or self-care (01) ==
LOC: ORWHC2ENDO 07:22
PROVIDERS: ATTEND Internal Medicine
DX: D12.3 Benign neoplasm of transverse colon (principal); K57.30 Diverticulosis of large intestine without perforation or abscess without bleeding; K29.50 Unspecified chronic gastritis without bleeding; K21.0 Gastro-esophageal reflux disease with esophagitis; K25.9 Gastric ulcer, unspecified as acute or chronic, without hemorrhage or perforation; E78.5 Hyperlipidemia, unspecified; M12.9 Arthropathy, unspecified; Z88.2 Allergy status to sulfonamides; Z91.040 Latex allergy status; Z88.1 Allergy status to other antibiotic agents; Z88.8 Allergy status to other drugs, medicaments and biological substances; Z79.899 Other long term (current) drug therapy; Z82.49 Family history of ischemic heart disease and other diseases of the circulatory system; Z87.891 Personal history of nicotine dependence
CPT/HCPCS: 88305; 45380; 43239; J2704

== ENCOUNTER → 2019-06-06 | Outpatient (CLI) | payer MEDICARE ==
[2019-06-06 23:28] LABS: C Reactive Protein <0.4 mg/dL (0.0-0.8); Chol/HDL Ratio 2.13; Cholesterol 164 mg/dL (0-200)
[2019-06-07 00:46] LABS: Hemoglobin A1C 5.6 % (4.0-6.0)
== END | disposition home or self-care (01) ==
LOC: LABWHC1 14:04
PROVIDERS: ATTEND Nurse Practitioner Family
DX: Z00.01 Encounter for general adult medical examination with abnormal findings (principal); M06.9 Rheumatoid arthritis, unspecified
CPT/HCPCS: 36415; 80061; 83036; 85652; 86140

== ENCOUNTER 2019-06-23 07:24 | Day surgery (SDC) | payer MEDICARE ==
[~2019-06-23 07:24] MED LIST changes: -LIDOCAINE 1% 20 ML VIAL (10MG/ML) FOR IV START INTRADERMA PRN; +MIDAZOLAM 2 MG/2 ML VIAL ONE; +fentaNYL (PF) 50 MCG/ML 2 ML AMP ONE
[2019-06-23 08:08] VITALS: RESP 16; TEMP 98.1
[2019-06-23] MEDS ORDERED: LIDOCAINE 1% 20 ML VIAL (10MG/ML) FOR IV START INTRADERMA ONE (08:08)
--- NOTE | 2019-06-23 09:00 | P.PCN ---
Date of Procedure: 06/23/19 Procedure(s) Performed: PREOPERATIVE DIAGNOSIS: Lumbar Spondylosis POSTOPERATIVE DIAGNOSIS: Same PROCEDURES: Radiofrequency ablation of the L1, L2, L3 medial branches with fluoroscopic guidance on the left side for facets of L2 -3 and L3-4 SURGEON: Mary Johnson MD. ANESTHESIA: Lidocaine 1% 5 mL, Moderate sedation with intravenous Versed and fentanyl, sedation time 30 minutes EBL: Minimal Fluoroscopy was used for the procedure and images were saved in the radiology portion of the chart. PROCEDURE INDICATION: The patient with low back pain secondary to lumbar facet arthropathy who had more than 50% relief of pain with previous diagnostic lumbar medial branch block X2. PROCEDURE DESCRIPTION / TECHNIQUE: The patient was seen and identified in the preoperative area. Risks, benefits, complications, including but not limited to risk of infection ,bleeding , allergic reactions to the medications and incomplete pain relief , and alternatives were discussed with the patient, the patient agreed to proceed with the procedure and signed the consent. IV was started. The operative site was marked. Patient was taken to the OR and time out was completed. The patient was placed in the prone position on the procedure table. The lumbar area was prepped and draped in the usual sterile fashion. . Vital signs were closely monitored during the procedure .IV sedation was used during the procedure to decrease patients anxiety. Using AP and then oblique fluoroscopy, the "eye of the Duane dog" corresponding to the connection between the superior and transverse articular processes of the above-mentioned levels were identified, marked, and localized with 1% lidocaine. Subsequently, an 18 guage 100 mm radiofrequency cannula with a 10-mm active tip was advanced guided by fluoroscopy to the identified target at each site. Needle positioning was confirmed on AP, oblique and lateral fluoroscopy. Motor testing at 2.5 Hz was done with paraspinal muscle stimulation only, and no radicular symptoms down the legs. Then 1 mL of 4% lidocaine was injected in each site. Radiofrequency thermocoagulation at 80 degrees celsius for 90 seconds was then performed. [place] were removed. Sterile dressings were applied. COMPLICATIONS: No acute complications. Comments: Of note, the patient was scheduled to have lumbar RFA at L3, L4, L5, however the patient has a lumbar fusion at these levels. On review of records, in 2017, she underwent radio frequency ablation of the facets L2-3 and L3-4, this was repeated today. DISPOSITION / PLANS: The patient was placed in a supine position and transferred to the recovery area in a stable condition for observation and was discharged from the recovery room after meeting discharge criteria. Home discharge instructions given to the patient by the staff. The patient will follow up for right-sided procedure in 2 weeks.
[2019-06-23] MEDS ORDERED: IV FLUID CONTINUATION 1,000 ML IV ONE (09:21)
[2019-06-23 09:27] VITALS: BP 124/70; PULSE 67
--- NOTE | 2019-06-23 09:47 | FL ---
EXAMINATION TYPE: FL guided pain mgmt statistic DATE OF EXAM: 06/23/2019 FLUOROSCOPY Fluoroscopy time of 4 seconds was used during left lumbar radiofrequency ablation. 5 image/s documen t/s the procedure.
== END 2019-06-23 09:27 | disposition home or self-care (01) ==
LOC: ORPAIN 07:24
PROVIDERS: ATTEND Anesthesiology
DX: M47.816 Spondylosis without myelopathy or radiculopathy, lumbar region (principal); Z88.1 Allergy status to other antibiotic agents; Z88.2 Allergy status to sulfonamides; Z91.040 Latex allergy status; Z88.8 Allergy status to other drugs, medicaments and biological substances
CPT/HCPCS: 64635; 64636; J3010; J2250; 99152; 99153

== ENCOUNTER → 2019-07-14 | Outpatient (CLI) | payer MEDICARE ==
[2019-07-14 15:17] VITALS: BP 106/71; PULSE 81; RESP 18
--- NOTE | 2019-07-14 15:22 | P.PAINPG ---
Subjective Progress Note Date: 07/14/19 This is follow-up visit for this patient with a history of severe and chronic low back pain, and neck pain pain and left shoulder pain diagnosed with cervical radiculopathy, and lumbar spondylosis with lumbar facet arthropathy , her pain management between interventional pain management and medication management, recently we have done a radiofrequency ablation of the medial branch lumbar area on the left side, Patients currently on , Percocet 5/325 every 6 hours, Neurontin 300 mg 3 times a day, and she reported the current medication is not helping her low back pain she reported that her low back pain increased significantly over the last few weeks and pain more severe on the left side, she is able to ambulate on her own, Patient denies any side effects of the medication, denies excessive drowsiness or sleepiness, denies suicidal ideation.,Patient denies any motor or sensory deficit , patient denies any fever or night sweats, denies any change in the bowel movements or urination, she is complaining of some muscle spasm in the lumbar and thoracic area Objective - Exam Physical Examinations : -Constitutiona : Cooperative , not in acute distress . -HEENT : nech : supple , no Lymphadenopathy , normal thyroid size . : eyes : no ptosis , no icterus, no photophobia . - neurologic : Cranial nerve II to XII intact , no focal ne urological deffecit . -psychatric : alert , oriented X 3 , appropriate affect , intact judgment and insight . -Lymphatic : no Lymphadenopathy . - musculoskeltal : Lumber spine moter stegnth lower extremities ,thigh and legs 5/5 Right side , 5/5 Left side deep tendon reflexes : normal Knee Jerk , normal ankle Jerk lumber facet Loading Test =positive Rig ht , positive Left Range of motion of the lumbar spine Flexion 30 degrees, extension 10 degrees Trigger point identified in the lumbar paravertebral muscles and thoracic paravertebral muscles Assessment and Plan Plan: Assessment and plan= chronic low back pain secondary to , lumbar spondylosis with lumbar facet arthropathy . Myofascial pain syndrome lumbar and thoracic area Cervical radiculopathy chronic and current use of high-risk medication (opioids) Patient denies any side effects of the current pain medication and the current treatment/medication helping the patient to do activity of daily living , Diagnoses, prognosis, treatment options, including but not limited to physical therapy, medication management, interventional therapies, and surgery, were discussed with the patient All the questions answered The narcotic consent was signed and patient agreed and understood the side effects and complications of opioid treatment. Patient signed the narcotic agreement, and was orally counseled, not to overuse, not to abuse, not to Divert , not tp sell pain medication, and to take it as prescribed only, Patient was counseled not to drive or operate heavy equipment while using narcotic medication, and advised not to use alcohol or any Illicit drugs while using the narcotis. understanding that lack of compliance with any of the above instructions, will likely to cause discharge from, the pain service, not to renew his narcotic prescriptions MAPS Reviwed and it was apropriate . Medication managements= patient will be given prescription refills for Percocet 5/325 every 6 hours dispense 120 with one refill, Neurontin 300 mg 3 times a day dispense 90 with 1 refill A prescription for Flexeril 5 mg twice a day given Interventions= not in the future she could be good candidate to have a refill of the medial branch lumbar area on the right side Time with Patient: Less than 30 PQRS Measure Charge Sheet Measure #130: Documentation of Current Meds in Medical Chart: Patient's medications documented in chart Measure #226: Tobacco Use: Screen & Cessation Intervention: Pt not a tobacco user Measure #111: Pneumonia Vaccination: Pneumococcal vaccine administered or previously received Measure #47: Advance Care Plan: Advance care planning discussed & documented, pt chose/unable to give Measure #412: Opioid Treatment Agreement: Documented signed opioid trtmnt agreemnt min once during opioid trtmnt Measure #408: Opioid Therapy Follow-up Evaluation: Patient had f/u eval minimum every 3 months during opioid therapy Measure #317: Preventitive Care & Scrn High Bld Press & F/U: Normal blood pressure, f/u not required Measure #128: Body Mass Index (BMI) Screening & Follow-up: BMI documented within normal parameters Measure #131: Pain Assessment & Follow-up: Pain positive & plan documented, Follow-up scheduled Measure #431: Unhealthy Alcohol Use Preventative Care & Scrn: Patient not identified as an unhealthy alcohol user PQRS Narrative: Smoking Status Former smoker Narcotic Agreement Date Signed 05/08/19 Pain Intensity [Lower Back] 7 Scale Used Numeric (1 - 10) Hx Alcohol Use (MH) No Home Medications: Ambulatory Orders Atorvastatin [Lipitor] 40 mg PO DAILY 03/17/18 Lisinopril-Hctz 20-12.5 mg [Zestoretic 20-12.5] 1 tab PO QAM 03/17/18 Sennosides-Docusate Sodium [Senokot-S] 1 tab PO BID PRN 06/25/18 Ondansetron Odt [Zofran ODT] 4 mg PO Q8HR PRN #20 tab 03/05/19 Venlafaxine HCl [Effexor XR] 150 mg PO QAM 03/09/19 Dicyclomine [Bentyl] 20 mg PO QID PRN #30 tab 03/12/19 Omeprazole 40 mg PO QAM PRN 03/18/19 Tylenol,Aspirn,Caffeine Guajardo 2 tab PO Q4H PRN 05/06/19 Gabapentin [Neurontin] 300 mg PO TID #90 cap 05/08/19 oxyCODONE HCL/ACETAMINOPHEN [Percocet 5-325 mg] 1 tab PO Q6HR PRN 30 Days #120 tab 05/08/19 Controlled Substance Measures - Controlled Substance Measures Is patient prescribed a controlled substance at discharge?: Yes When asked, does pt state using other controlled substances?: No If prescribed controlled substance>3 days was MAPS reviewed?: Yes If Rx opioid, was Start Talking consent form obtained?: Yes If opioid is for acute pain is fill amount 7 days or less?: No Was information provided regarding opioid addiction?: Yes
== END | disposition home or self-care (01) ==
LOC: PNWHC3 13:57
PROVIDERS: ATTEND Specialist
DX: G89.29 Other chronic pain (principal); M47.816 Spondylosis without myelopathy or radiculopathy, lumbar region; M46.96 Unspecified inflammatory spondylopathy, lumbar region; M54.12 Radiculopathy, cervical region; M79.18 Myalgia, other site; Z87.891 Personal history of nicotine dependence; Z79.891 Long term (current) use of opiate analgesic; Z79.82 Long term (current) use of aspirin; Z79.899 Other long term (current) drug therapy
CPT/HCPCS: 99211

== ENCOUNTER → 2019-11-12 | Outpatient (CLI) | payer MEDICARE ==
--- NOTE | 2019-11-12 13:15 | P.PAINPG ---
Subjective Progress Note Date: 11/12/19 THIS ENCOUNTER WAS PERFORMED A TELEMEDICINE VISIT VIA SECURE TWO-WAY AUDIO TO MINIMIZE RISK AND TRANSMISSION OF COVID-19. This is follow-up visit for this patient with a history of severe and chronic low back pain, and neck pain pain and left shoulder pain diagnosed with cervical radiculopathy, and lumbar spondylosis with lumbar facet arthropathy , her pain management between interventional pain management and medication management, we have done a radiofrequency ablation of the medial branch lumbar area with good relief. She obtained >50% relief from this, pain has started to return to baseline a few weeks ago. Pain is located in low back, does not radiate into lower extremities, rated as 6-9/10, described as occasionally sharp, stabbing, worse with activity, better with heat, medications. Patient continues to garden; she continues to exercise. Patients currently on Percocet 5/325 every 6 hours, Neurontin 300 mg 3 times a day. She stopped using flexeril as it wasn't helping. Patient denies any side effects of the medication, denies excessive drowsiness or sleepiness, denies suicidal ideation.,Patient denies any motor or sensory deficit , patient denies any fever or night sweats, denies any change in the bowel movements or urination, she is complaining of some muscle spasm in the lumbar and thoracic area. Review of systems is negative for chest pain, shortness of breath, new onset weakness, numbness/tingling, abdominal pain, malaise, fever, night sweats, chills, homicidal or suicidal ideation, or bowel or bladder incontinence. Objective Physical exam was unable to be performed due to audio only telemetry visit Assessment and Plan Plan: Assessment and plan= chronic low back pain secondary to , failed back surgery syndrome,lumbar spondylosis with lumbar facet arthropathy . Myofascial pain syndrome lumbar and thoracic area Cervical radiculopathy chronic and current use of high-risk medication (opioids) Patient denies any side effects of the current pain medication and the current treatment/medication helping the patient to do activity of daily living , The narcotic consent was signed and is on file MAPS Reviewed and it was appropriate . Medication managements= patient will be given prescription refills for Percocet 5/325 every 6 hours dispense 120 with one refill, Neurontin 300 mg 3 times a day dispense 90 with 1 refill. Flexeril was not refilled that she was not getting any benefit from this. Interventions= we'll schedule radiofrequency ablation of the medial branch lumbar area L1, L2, L3 for facets L2 to 3 and L3-4, right side first PQRS Measure Charge Sheet PQRS Narrative: Smoking Status Former smoker Narcotic Agreement Date Signed 05/08/19 Pain Intensity [Back] 7 Hx Alcohol Use (MH) No Home Medications: Ambulatory Orders Atorvastatin [Lipitor] 40 mg PO DAILY 03/17/18 Lisinopril-Hctz 20-12.5 mg [Zestoretic 20-12.5] 1 tab PO QAM 03/17/18 Sennosides-Docusate Sodium [Senokot-S] 1 tab PO BID PRN 06/25/18 Ondansetron Odt [Zofran ODT] 4 mg PO Q8HR PRN #20 tab 03/05/19 Omeprazole 40 mg PO QAM PRN 03/18/19 Tylenol,Aspirn,Caffeine Guajardo 2 tab PO Q4H PRN 05/06/19 Gabapentin [Neurontin] 300 mg PO TID #90 cap 09/08/19 oxyCODONE HCL/ACETAMINOPHEN [Percocet 5-325 mg] 1 tab PO Q6HR PRN 30 Days #120 tab 09/22/19 Venlafaxine HCl [Effexor XR] 225 mg PO DAILY 11/07/19 Controlled Substance Measures - Controlled Substance Measures Is patient prescribed a controlled substance at discharge?: Yes When asked, does pt state using other controlled substances?: No If prescribed controlled substance>3 days was MAPS reviewed?: Yes If Rx opioid, was Start Talking consent form obtained?: Yes If opioid is for acute pain is fill amount 7 days or less?: No Was information provided regarding opioid addiction?: Yes
== END | disposition home or self-care (01) ==
LOC: PNWHC3 07:21
PROVIDERS: ATTEND Anesthesiology
DX: Z53.9 Procedure and treatment not carried out, unspecified reason (principal)

== ENCOUNTER 2019-11-21 16:04 | Emergency (ER) | payer MEDICARE ==
[2019-11-21 16:17] VITALS: RESP 18
[2019-11-21] MEDS ORDERED: SODIUM CHLORIDE 0.9% 1,000 ML IV STA (16:21)
--- NOTE | 2019-11-21 16:22 | ED ---
Syncope HPI - General Chief Complaint: Syncope Stated Complaint: sob Time Seen by Provider: 11/21/19 16:21 Source: patient, RN notes reviewed, old records reviewed Mode of arrival: ambulatory Limitations: no limitations - History of Present Illness Initial Comments: This is a 69-year-old female multiple complaints complaints ranging from everything from diarrhea to numbness and tingling of extremities loss of bowel or bladder greater than a week ago without back pain. Continuing to have diarrhea. No other significant neurological complaints. No headaches. History of drug abuse clean for 20 years. Complaining of some generalized pain currently. This chronic pain for this patient. Appetite has been diminished both oral liquids and solids MD Complaint: loss of consciousness (Patient did have loss of consciousness a week ago), other (Otherwise feeling well) -: week(s) Prodromal Symptoms: nausea/vomiting, vertigo (Patient does feel dizzy) Injuries Sustained Associated with Event: None Current Symptoms: vertigo (Occasionally vertiginous), nausea, weakness History: previous syncopal episode Context: at rest - Related Data Home Medications Medication Instructions Recorded Confirmed Atorvastatin [Lipitor] 40 mg PO DAILY 03/17/18 11/21/19 Lisinopril-Hctz 20-12.5 mg 1 tab PO QAM 03/17/18 11/21/19 [Zestoretic 20-12.5] Omeprazole 40 mg PO PC-BRKFST PRN 03/18/19 11/21/19 Venlafaxine HCl [Effexor XR] 225 mg PO DAILY 11/07/19 11/21/19 Aspirin/Acetaminophen/Caffeine 1 tab PO DAILY PRN 11/21/19 11/21/19 [Excedrin Migraine Caplet] Butalb/APAP/Caff 50-325-40Mg 1 tab PO DIRECTED PRN 11/21/19 11/21/19 [Fioricet 50-325-40] Ondansetron Odt [Zofran ODT] 4 mg PO DIRECTED PRN 11/21/19 11/21/19 Previous Rx's Medication Instructions Recorded Gabapentin [Neurontin] 300 mg PO TID #90 cap 11/12/19 oxyCODONE HCL/ACETAMINOPHEN 1 tab PO Q6HR PRN 30 Days #120 tab 11/12/19 [Percocet 5-325 mg] Allergies Allergy/AdvReac Type Severity Reaction Status Date / Time Sulfa (Sulfonamide Allergy Severe Rash/Hives Verified 11/21/19 17:52 Antibiotics) Tetracyclines Allergy Severe Rash/Hives Verified 11/21/19 17:52 latex Allergy Rash/Hives Verified 11/21/19 17:52 lorazepam [From Ativan] AdvReac Confusion Verified 11/21/19 17:52 TIDE AND EXTRA LAUNDRY SOAP Allergy Rash/Hives Uncoded 11/07/19 15:16 Review of Systems ROS Statement: Those systems with pertinent positive or pertinent negative responses have been documented in the HPI. ROS Other: All systems not noted in ROS Statement are negative. Past Medical History Past Medical History: Cancer, Fibromyalgia, GERD/Reflux, GI Bleed, Hyperlipidemia, Hypertension, Liver Disease, Osteoarthritis (OA), Pneumonia, Rheumatoid Arthritis (RA), Syncope Additional Past Medical History / Comment(s): diverticulitis, IBS, gastric ulcer, hepatitis A, L breast cancer with surgeries/chemo and radiation, cervical cancer, bronchitis, osteoporosis, neuropathy bilateral feet and hands, T11 spinal injury, scoliosis, recurrent falls, migraines, History of Any Multi-Drug Resistant Organisms: None Reported Past Surgical History: Section, Hysterectomy, Joint Replacement, Orthopedic Surgery, Tonsillectomy Additional Past Surgical History / Comment(s): ORIF L humerus with carlos/screws since removed, total L shoulder arthroplasty, cervical and lumbar fusions, pain clinic procedures, D&C, bilateral breast reductions with nonhealing wound and had closure/skin grafting, L breast lumpectomies and then L breast mastectomy, R tympanoplasty, EGDs, colonoscopies, ivy fundoplasty, loop recorder. Past Anesthesia/Blood Transfusion Reactions: No Reported Reaction Additional Past Anesthesia/Blood Transfusion Reaction / Comment(s): . Past Psychological History: Anxiety, Depression, PTSD Smoking Status: Former smoker Past Alcohol Use History: None Reported Past Drug Use History: None Reported - Past Family History Mother Family Medical History: Myocardial Infarction ([place]) Additional Family Medical History / Comment(s): . General Exam - General Exam Comments Initial Comments: NIH of 0 with no focal neurological deficit Limitations: no limitations General appearance: alert, in no apparent distress Head exam: Present: atraumatic, normocephalic, normal inspection Eye exam: Present: normal appearance, PERRL, EOMI. Absent: scleral icterus, conjunctival injection, periorbital swelling ENT exam: Present: normal exam, mucous membranes moist Neck exam: Present: normal inspection. Absent: tenderness, meningismus, lymph adenopathy Respiratory exam: Present: normal lung sounds bilaterally. Absent: respiratory distress, wheezes, rales, rhonchi, stridor Cardiovascular Exam: Present: regular rate, normal rhythm, normal heart sounds. Absent: systolic murmur, diastolic murmur, rubs, gallop, clicks GI/Abdominal exam: Present: soft, normal bowel sounds. Absent: distended, tenderness, guarding, rebound, rigid Extremities exam: Present: normal inspection, full ROM, normal capillary refill. Absent: tenderness, pedal edema, joint swelling, calf tenderness Back exam: Present: normal inspection Neurological exam: Present: alert, oriented X3, CN II-XII intact Psychiatric exam: Present: normal affect, normal mood Skin exam: Present: warm, dry, intact, normal color. Absent: rash Course Vital Signs 11/21/19 11/21/19 16:13 16:56 Temperature 98.5 F 98.9 F Pulse Rate 94 89 Respiratory 18 18 Rate Blood Pressure 106/76 114/83 O2 Sat by Pulse 98 97 Oximetry - Reevaluation(s) Reevaluation #1: 11/21/19 18:45 Medical record is reviewed Reevaluation #2: 11/21/19 18:45 patient does feel improved here in the ER with pain control of her chronic pain still had 2 episodes of diarrhea here and some dehydration although feeling better with medication here in the emergency department EKG Findings - EKG Comments: EKG Findings:: EKG is sinus rhythm of 88, W[place] 148 QRS 74 QTc 460 Medical Decision Making - Medical Decision Making 69 female DF for evaluation patient having a loss of bowel and bladder 1 week ago no headaches occasionally feels dizzy and off-balance but is able to ambulate here in the emergency 5. Patient also having persistent diarrhea 2 times here in the emergency department feels dehydrated. Occasionally confused. Patient will need further outpatient evaluation regarding probable normal pressure hydrocephalus, patient's amateur here in the ER without significant distress - Lab Data Result diagrams: 11/21/19 16:37 11/21/19 16:37 Lab Results 11/21/19 11/21/19 11/21/19 Range/Units 16:37 16:37 16:37 WBC 6.8 (3.8-10.6) k/uL RBC 4.02 (3.80-5.40) m/uL Hgb 13.2 (11.4-16.0) gm/dL Hct 39.2 (34.0-46.0) % MCV 97.5 (80.0-100.0) fL MCH 32.8 (25.0-35.0) pg MCHC 33.7 (31.0-37.0) g/dL RDW 13.5 (11.5-15.5) % Plt Count 328 (150-450) k/uL Neutrophils % 60 % Lymphocytes % 27 % Monocytes % 7 % Eosinophils % 2 % Basophils % 0 % Neutrophils # 4.1 (1.3-7.7) k/uL Lymphocytes # 1.8 (1.0-4.8) k/uL Monocytes # 0.5 (0-1.0) k/uL Eosinophils # 0.1 (0-0.7) k/uL Basophils # 0.0 (0-0.2) k/uL PT 10.5 (9.0-12.0) sec INR 1.0 (<1.2) APTT 23.0 (22.0-30.0) sec D-Dimer 0.40 (<0.60) mg/L FEU Sodium 137 (137-145) mmol/L Potassium 4.2 (3.5-5.1) mmol/L Chloride 107 (98-107) mmol/L Carbon Dioxide 16 L (22-30) mmol/L Anion Gap 14 mmol/L BUN 26 H (7-17) mg/dL Creatinine 1.20 H (0.52-1.04) mg/dL Est GFR (CKD-EPI)AfAm 54 (>60 ml/min/1.73 sqM) Est GFR (CKD-EPI)NonAf 47 (>60 ml/min/1.73 sqM) Glucose 109 H (74-99) mg/dL Plasma Lactic Acid Eliseo (0.7-2.0) mmol/L Calcium 10.9 H (8.4-10.2) mg/dL Phosphorus 3.9 (2.5-4.5) mg/dL Magnesium 1.5 L (1.6-2.3) mg/dL Total Bilirubin 0.3 (0.2-1.3) mg/dL AST 26 (14-36) U/L ALT 15 (4-34) U/L Alkaline Phosphatase 115 (38-126) U/L Creatine Kinase 34 (30-135) U/L Troponin I (0.000-0.034) ng/mL NT-Pro-B Natriuret Pep pg/mL Total Protein 7.5 (6.3-8.2) g/dL Albumin 4.6 (3.5-5.0) g/dL 11/21/19 11/21/19 11/21/19 Range/Units 16:37 16:37 16:37 WBC (3.8-10.6) k/uL RBC (3.80-5.40) m/uL Hgb (11.4-16.0) gm/dL Hct (34.0-46.0) % MCV (80.0-100.0) fL MCH (25.0-35.0) pg MCHC (31.0-37.0) g/dL RDW (11.5-15.5) % Plt Count (150-450) k/uL Neutrophils % % Lymphocytes % % Monocytes % % Eosinophils % % Basophils % % Neutrophils # (1.3-7.7) k/uL Lymphocytes # (1.0-4.8) k/uL Monocytes # (0-1.0) k/uL Eosinophils # (0-0.7) k/uL Basophils # (0-0.2) k/uL PT (9.0-12.0) sec INR (<1.2) APTT (22.0-30.0) sec D-Dimer (<0.60) mg/L FEU Sodium (137-145) mmol/L Potassium (3.5-5.1) mmol/L Chloride (98-107) mmol/L Carbon Dioxide (22-30) mmol/L Anion Gap mmol/L BUN (7-17) mg/dL Creatinine (0.52-1.04) mg/dL Est GFR (CKD-EPI)AfAm (>60 ml/min/1.73 sqM) Est GFR (CKD-EPI)NonAf (>60 ml/min/1.73 sqM) Glucose (74-99) mg/dL Plasma Lactic Acid Eliseo 2.8 H* (0.7-2.0) mmol/L Calcium (8.4-10.2) mg/dL Phosphorus (2.5-4.5) mg/dL Magnesium (1.6-2.3) mg/dL Total Bilirubin (0.2-1.3) mg/dL AST (14-36) U/L ALT (4-34) U/L Alkaline Phosphatase (38-126) U/L Creatine Kinase (30-135) U/L Troponin I <0.012 (0.000-0.034) ng/mL NT-Pro-B Natriuret Pep 45 pg/mL Total Protein (6.3-8.2) g/dL Albumin (3.5-5.0) g/dL - Radiology Data Radiology results: report reviewed (CT brain is negative for acute disease), image reviewed Disposition Clinical Impression: Vasovagal syncope, Colitis, Hypomagnesemia, Dehydration Narrative: r/o Normal Pressure Hydrocephalus Disposition: HOME SELF-CARE Condition: Good Instructions (If sedation given, give patient instructions): Dehydration (ED), Acute Diarrhea (ED), Chronic Diarrhea (ED) Is patient prescribed a controlled substance at d/c from ED?: No Referrals: Easton Tripathi DO [Primary Care Provider] - 1-2 days
[2019-11-21 16:52] LABS: Basophils % (A) 0 %; Eosinophils # (A) 0.1 k/uL (0-0.7); Eosinophils % (A) 2 %; HCT 39.2 % (34.0-46.0); HGB 13.2 gm/dL (11.4-16.0); Lymphocytes # (A) 1.8 k/uL (1.0-4.8); Lymphocytes % (A) 27 %; MCH 32.8 pg (25.0-35.0); MCHC 33.7 g/dL (31.0-37.0); MCV 97.5 fL (80.0-100.0); Mean Platelet Volume 7.5; Monocytes # (A) 0.5 k/uL (0-1.0); Monocytes % (A) 7 %; Neutrophils # (A) 4.1 k/uL (1.3-7.7); Neutrophils % (A) 60 %; Platelet Count 328 k/uL (150-450); RBC 4.02 m/uL (3.80-5.40); RDW 13.5 % (11.5-15.5); WBC 6.8 k/uL (3.8-10.6)
[2019-11-21 17:01] VITALS: TEMP 98.9
[2019-11-21 17:09] LABS: Albumin 4.6 g/dL (3.5-5.0); Calcium 10.9 mg/dL (8.4-10.2); Magnesium 1.5 mg/dL (1.6-2.3); Phosphorus 3.9 mg/dL (2.5-4.5); Potassium 4.2 mmol/L (3.5-5.1); Total Bilirubin 0.3 mg/dL (0.2-1.3); Total Protein 7.5 g/dL (6.3-8.2)
[2019-11-21 17:25] LABS: D-Dimer 0.4 mg/L FEU (<0.60); Prothrombin Time 10.5 sec (9.0-12.0)
[2019-11-21] MEDS ORDERED: ONDANSETRON 4 MG/2 ML VIAL IVP STA (17:59)
[2019-11-21] MEDS ORDERED: MORPHINE SULFATE 4 MG/ML SYRINGE IVP STA (17:59)
--- NOTE | 2019-11-21 18:03 | CT ---
EXAMINATION TYPE: CT brain wo con DATE OF EXAM: 11/21/2019 COMPARISON: 06/16/2018 INDICATION: weakness, confusion, loss of balance DLP: 1055.4 mGycm, Automated exposure control for dose reduction was used. CONTRAST: None CT of the brain is performed utilizing 3 mm thick sections through the posterior fossa and 3 mm thick sections through the remaining calvarium. Study is performed within 24 hours of arrival to the hosp ital. No abnormal hyperdensity is present to suggest an acute intracranial hemorrhage. No mass lesion is evident. No acute infarcts are evident. Ventricles and sulci are appropriate for the patient age. Paranasal sinuses and mastoid air cells within the [id number] are clear. IMPRESSIONS: 1. No acute intracranial process.
[2019-11-21] MEDS ORDERED: ACET/COD 300 MG/30 MG STARTER PACK 6 TAB BTL PO STA (18:29)
[2019-11-21] MEDS ORDERED: LOPERAMIDE 2 MG CAP PO STA (18:29)
[2019-11-21] MEDS ORDERED: ONDANSETRON 4 MG ODT STARTER PACK 2 TAB BTL PO STA (18:29)
[2019-11-21] MEDS ORDERED: SODIUM CHLORIDE 0.9% 1,000 ML IV ONE (18:29)
[2019-11-21] MEDS ORDERED: DIPHENOX-ATROP 2.5-0.025 MG 1 EACH TAB PO STA (18:31)
[2019-11-21] MEDS ORDERED: DIPHENOX-ATROP STARTER PACK 8 TAB BTL PO STA (18:31)
[2019-11-21 18:44] LABS: Appearance,Urine Cloudy (Clear); Bacteria,Urine Rare /hpf; Bilirubin,Urine Negative (Negative); Blood,Urine Negative (Negative); Color,Urine Yellow; Glucose,Urine (UA) Negative (Negative); Hyaline Casts,Urine 25 /lpf (0-2); Ketones,Urine Negative (Negative); Leukocyte Esterase,Urine Moderate (Negative); Mucus,Urine Rare /hpf; Nitrite,Urine Negative (Negative); PH, Urine 5.5 (5.0-8.0); Protein,Urine Trace (Negative); RBC,Urine 1 /hpf (0-5); Specific Gravity,Urine 1.024 (1.001-1.035); Squamous Epithelial Cell,Urine 2 /hpf (0-4); Urobilinogen,Urine <2.0 mg/dL (<2.0); WBC,Urine 2 /hpf (0-5)
[2019-11-21 18:59] VITALS: BP 108/64; PULSE 83
== END 2019-11-21 20:02 | disposition home or self-care (01) ==
LOC: EC 16:04
DX: K52.9 Noninfective gastroenteritis and colitis, unspecified (principal); E83.42 Hypomagnesemia; E86.0 Dehydration; R55 Syncope and collapse; I10 Essential (primary) hypertension; E78.5 Hyperlipidemia, unspecified; M81.0 Age-related osteoporosis without current pathological fracture; F41.9 Anxiety disorder, unspecified; F32.9 Major depressive disorder, single episode, unspecified; Z79.82 Long term (current) use of aspirin; Z79.899 Other long term (current) drug therapy; Z88.1 Allergy status to other antibiotic agents; Z88.2 Allergy status to sulfonamides; Z91.040 Latex allergy status; Z88.8 Allergy status to other drugs, medicaments and biological substances; Z91.048 Other nonmedicinal substance allergy status; Z87.891 Personal history of nicotine dependence; Z85.3 Personal history of malignant neoplasm of breast; Z85.41 Personal history of malignant neoplasm of cervix uteri; Z96.612 Presence of left artificial shoulder joint; Z98.1 Arthrodesis status; Z90.12 Acquired absence of left breast and nipple
CPT/HCPCS: 36415; 93005; 85379; 83880; 80053; 82550; 83605; 83735; 84100; 84484; 85025; 85610; 85730; 81001; 70450; 99285; 96374; 96375; 96361 ×2; J2270; J2405; S0119

== ENCOUNTER 2019-11-25 09:29 | Day surgery (SDC) | payer MEDICARE ==
[2019-11-25 09:47] VITALS: TEMP 97.4
[2019-11-25] MEDS ORDERED: LIDOCAINE 1% (10MG/ML) FOR IV START INTRADERMA ONE (09:50)
[2019-11-25] MEDS ORDERED: IV FLUID CONTINUATION 1,000 ML IV ONE (09:50)
[2019-11-25] MEDS ORDERED: LACTATED RINGERS 1,000 ML IV ONE (09:50)
[2019-11-25] MEDS ORDERED: ROPIVACAINE 5MG/ML 20ML VIAL ONE (10:12)
[2019-11-25] MEDS ORDERED: LIDOCAINE 4% (PF) 5 ML AMP ONE (10:12)
[2019-11-25] MEDS ORDERED: fentaNYL (PF) 50 MCG/ML 2 ML AMP ONE (10:12)
[2019-11-25] MEDS ORDERED: MIDAZOLAM 2 MG/2 ML VIAL ONE (10:12)
[2019-11-25] MEDS: LACTATED RINGERS 1,000 ML IV SCH ×2 (10:46→11:20)
[2019-11-25 10:50] VITALS: RESP 18
--- NOTE | 2019-11-25 11:19 | P.PCN ---
Date of Procedure: 11/25/19 Description of Procedure: PREOPERATIVE DIAGNOSIS: 1. Lumbar Spondylosis with Facet Arthropathy without myelopathy. 2-. Lumber degenerative disc disease POSTOPERATIVE DIAGNOSIS: 1. Lumbar Spondylosis with Facet Arthropathy without myelopathy. 2-. Lumber degenerative disc disease PROCEDURES: Left Lumbar Radiofrequency Ablation of Medial Branches L1, L2, L3 nerves (L2-3 and L3-4 facet joints) SURGEON: Marc Burrows M.D. ANESTHESIA: Moderate sedation with intravenous versed 2 mg and fentaneyl 100 mcg and local infiltration with lidocaine 1% EBL: Minimal PROCEDURE INDICATION: The patient with low back pain secondary to lumbar facet arthropathy who had more than 50% relief of her pain with previous diagnostic lumbar medial branch block with bupivacaine. PROCEDURE DESCRIPTION / TECHNIQUE: The patient was seen and identified in the preoperative area. Risks, benefits, complications, including but not limited to risk of infection ,bleeding , allergic reactions to the medications and no complete pain releife , and alternatives were discussed with the patient, the patient agreed to proceed with the procedure and signed the consent. IV was started. Vital signs remained stable throughout the procedure. Patient was taken to the OR and time out was completed. The patient was placed in the prone position on the procedure table. The lumber area was prepped and draped in the usual sterile fashion. . Vital signs were closely monitored during the procedure .IV sedation was used during the procedure to decrease patients anxiety. Using AP and then oblique fluoroscopy, the ``eye of the Duane dog corresponding to the connection between the superior and transverse articular processes of Left L1, L2 , L3, L4 were identified marked, and localized with 1% lidocaine. Subsequently, a [id number] radiofrequency cannula with a 10-mm active tip was advanced guided by fluoroscopy to each of the ``eyes of the Duane dog at Left L1 , L2, L3 medial branches. They were placed in the AP, Left Oblique, and lateral positions. Each site then underwent sensory testing at 50 Hz and 0 to 1 volt and motor testing at 2.5 Hz and 0 to 3 volt with local stimulation, but no radicular symptoms down the legs. Thereafter the Left L2-3 , L3-4 sites underwent radiofrequency thermocoagulation at 80 degrees celsius for 90 seconds after injecting 0.5 ml of PF lidocaine 4%. then After the thermocoagulation done , 1 ml of the block solution containing Kenalog 40 mg and 4 ml of ropovacaine 0.5% was injected at the Left L2-3 ,L3-4 levels after negative aspiration of CSF and blood and with no paresthesias. Cannulas were retracted while injecting lidocaine 1% until the needle is out. At the end of the procedure, the skin was cleansed and bandages were applied. COMPLICATIONS: No acute complications. DISPOSITION / PLANS: The patient was placed in a supine position and transferred to the recovery area in a stable condition for observation and was discharged from the recovery room after meeting discharge criteria. Home discharge instructions given to the patient by the staff. The patient was reexamined prior to discharge. The patient will schedule a Right Lumbar RFA L2- 3, L3-4 Joints (L1,2,3 medial branches)
[2019-11-25 11:30] VITALS: BP 136/77; PULSE 66
--- NOTE | 2019-11-25 12:12 | FL ---
EXAMINATION TYPE: FL guided pain mgmt statistic DATE OF EXAM: 11/25/2019 HISTORY: Fluoroscopy time 19 seconds of fluoroscopy provided. IMPRESSION: 1. Fluoroscopy time.
== END 2019-11-25 11:30 | disposition home or self-care (01) ==
LOC: ORPAIN 09:29
PROVIDERS: ATTEND Anesthesiology
DX: M47.896 Other spondylosis, lumbar region (principal); M51.36 Other intervertebral disc degeneration, lumbar region; Z88.2 Allergy status to sulfonamides; Z88.1 Allergy status to other antibiotic agents; Z88.8 Allergy status to other drugs, medicaments and biological substances
CPT/HCPCS: 64635; 64636; J2001; J2250; J3010; J2795; 99152

== ENCOUNTER → 2020-01-21 | Outpatient (CLI) | payer MEDICARE ==
[2020-01-21 14:39] VITALS: BP 164/89; PULSE 72; RESP 16
== END | disposition home or self-care (01) ==
LOC: PNWHC3 12:59
PROVIDERS: ATTEND Anesthesiology
DX: M47.816 Spondylosis without myelopathy or radiculopathy, lumbar region (principal); M46.96 Unspecified inflammatory spondylopathy, lumbar region; M79.18 Myalgia, other site; M54.12 Radiculopathy, cervical region; Z87.891 Personal history of nicotine dependence; Z79.899 Other long term (current) drug therapy; Z79.891 Long term (current) use of opiate analgesic; Z79.82 Long term (current) use of aspirin
CPT/HCPCS: 99211

== ENCOUNTER → 2020-02-09 | Outpatient (CLI) | payer MEDICARE ==
--- NOTE | 2020-01-21 14:32 | P.PAINPG ---
Subjective Progress Note Date: 01/20/20 This is follow-up visit for this patient with a history of severe and chronic low back pain (s/p L1-L3 RFA's), and neck pain (past C7-T1 ILESI last in 2018) and left shoulder pain diagnosed with cervical radiculopathy, and lumbar spondylosis with lumbar facet arthropathy , her pain management between interventional pain management and medication management, we have done a radiofrequency ablation of the medial branch lumbar area with good relief. She obtained >50% relief from this,in the past and we repeated the procedure (Left L1-L3 RFA) on 11/25/2019. She is here for follow-up today. She felt the procedure was quite helpful and would be interested in proceeding with the left side at some point. Pain is located in low back, does not radiate into lower extremities, rated as 8/10, described as occasionally sharp, stabbing, worse with activity, better with heat, medications. Patients currently on Percocet 5/325 every 6 hours, Neurontin 300 mg 3 times a day. Patient denies any side effects of the medication, denies excessive drowsiness or sleepiness, denies suicidal ideation.,Patient denies any motor or sensory deficit , patient denies any fever or night sweats, denies any change in the bowel movements or urination, she is complaining of some muscle spasm in the lumbar and thoracic area. Review of systems is negative for chest pain, shortness of breath, new onset weakness, numbness/tingling, abdominal pain, malaise, fever, night sweats, chills, homicidal or suicidal ideation, or bowel or bladder incontinence. Objective Physical exam: Vitals: Reviewed in EMR GENERAL: Well appearing, in no acute distress PSYCH: Mood and affect is appropriate. Awake, alert, and oriented SKIN: Skin color, texture, turgor normal, no rashes or lesions HEENT: Normocephalic, atraumatic. EOM intact CV: No pedal edema RESP: Respirations are unlabored, no audible wheezing GI: Abdomen non-distended MUSCULOSKELETAL: Bilateral upper and lower extremity strength is normal and symmetric. No atrophy or tone abnormalities are noted. Lumbar spine: Straight leg raising in the sitting position is negative for radicular pain. No pain to palpation over the lumbar spine and paraspinous muscles. Negative for pain with facet loading and back extension/rotation. Normal range of motion without pain reproduction Buttocks: No pain to palpation over the PSIS, sacroiliac joint maneuvers are negative for pain. Extremities: Peripheral joint ROM is full and pain free without obvious instability or laxity in all four extremities. No edema or skin discolorations noted. Gait: Gait is normal NEUR: Bilateral upper and lower extremity coordination and muscle stretch reflexes are physiologic and symmetric. Negative clonus bilaterally. No loss of sensation is noted. Assessment and Plan Plan: Assessment and plan= chronic low back pain secondary to , failed back surgery syndrome,lumbar spondylosis with lumbar facet arthropathy . Myofascial pain syndrome lumbar and thoracic area Cervical radiculopathy chronic and current use of high-risk medication (opioids) Patient denies any side effects of the current pain medication and the current treatment/medication helping the patient to do activity of daily living , The narcotic consent was signed and is on file MAPS Reviewed and it was appropriate . Medication managements= patient will be given prescription refills for Percocet 5/325 every 6 hours dispense 120 with one refill, Neurontin 300 mg 3 times a day dispense 90 with 1 refill. PQRS Measure Charge Sheet PQRS Narrative: Smoking Status Former smoker Narcotic Agreement Date Signed 05/08/19 Pain Intensity [Back] 7 Hx Alcohol Use (MH) No Controlled Substance Measures - Controlled Substance Measures Is patient prescribed a controlled substance at discharge?: Yes When asked, does pt state using other controlled substances?: No If prescribed controlled substance>3 days was MAPS reviewed?: Yes If Rx opioid, was Start Talking consent form obtained?: Yes If opioid is for acute pain is fill amount 7 days or less?: No Was information provided regarding opioid addiction?: Yes PQRS Measure Charge Sheet Measure #226: Tobacco Use: Screen & Cessation Intervention: Pt not a tobacco user Measure #111: Pneumonia Vaccination: Pneumococcal vaccine NOT administered or previously given Measure #412: Opioid Treatment Agreement: Documented signed opioid trtmnt agreemnt min once during opioid trtmnt Measure #408: Opioid Therapy Follow-up Evaluation: Patient had f/u eval minimum every 3 months during opioid therapy Measure #317: Preventitive Care & Scrn High Bld Press & F/U: Normal blood pressure, f/u not required Measure #128: Body Mass Index (BMI) Screening & Follow-up: BMI documented within normal parameters Measure #131: Pain Assessment & Follow-up: Pain positive & plan documented Measure #431: Unhealthy Alcohol Use Preventative Care & Scrn: Patient not identified as an unhealthy alcohol user PQRS Narrative: Smoking Status Former smoker Narcotic Agreement Date Signed 05/08/19 Hx Alcohol Use (MH) No Home Medications: Ambulatory Orders Atorvastatin [Lipitor] 40 mg PO DAILY 03/17/18 Lisinopril-Hctz 20-12.5 mg [Zestoretic 20-12.5] 1 tab PO QAM 03/17/18 Omeprazole 40 mg PO PC-BRKFST PRN 03/18/19 Venlafaxine HCl [Effexor XR] 225 mg PO DAILY 11/07/19 Aspirin/Acetaminophen/Caffeine [Excedrin Migraine Caplet] 1 tab PO DAILY PRN 11/21/19 Butalb/APAP/Caff 50-325-40Mg [Fioricet 50-325-40] 1 tab PO DIRECTED PRN 11/21/19 Ondansetron Odt [Zofran ODT] 4 mg PO DIRECTED PRN 11/21/19 Gabapentin [Neurontin] 300 mg PO TID #90 cap 01/21/20 oxyCODONE HCL/ACETAMINOPHEN [Percocet 5-325 mg] 1 tab PO Q6HR PRN 30 Days #120 tab 01/21/20 Controlled Substance Measures - Controlled Substance Measures Is patient prescribed a controlled substance at discharge?: Yes When asked, does pt state using other controlled substances?: No If prescribed controlled substance>3 days was MAPS reviewed?: Yes If Rx opioid, was Start Talking consent form obtained?: Yes If opioid is for acute pain is fill amount 7 days or less?: No Was information provided regarding opioid addiction?: Yes
--- NOTE | 2020-02-10 07:42 | MR ---
EXAMINATION TYPE: MR brain/lspine wo/w con DATE OF EXAM: 02/09/2020 COMPARISON: CT brain 11/21/2019 HISTORY: Seizures, dizziness, headaches, LBP, osteoarthritis CONTRAST: Performed utilizing 7 mL intravenous Gadavist gadolinium contrast. TECHNIQUE: Multiplanar, multiecho imaging on a 3.0 Jackelin magnet is performed through the brain. Stud y is performed within 24 hours of arrival to the hospital. The craniovertebral junction is normal. The pituitary is normal. Diffusion-weighted imaging is performed. No abnormal hyperintensity is present to suggest an acute i ntracranial infarct or acute ischemic change. There is mild diffuse increased signal through the periventricular white matter is nonspecific and co uld be related to microvascular ischemic change. Ventricles and sulci are appropriate for the patient age. No abnormal enhancement is evident following contrast administration. IMPRESSIONS: 1. Mild diffuse white matter changes EXAMINATION TYPE: MR brain/lspine wo/w con DATE OF EXAM: 02/09/2020 COMPARISON: None HISTORY: Seizures, dizziness, headaches, LBP, osteoarthritis CONTRAST: 7 mL intravenous Gadavist. TECHNIQUE: Multiplanar, multisequence images of the lumbar spine were acquired. FINDINGS: Pedicle screws are present L4-S1. This causes some limitation due to susceptibility artifa ct these levels. Postsurgical changes laminectomy are evident through these levels. Cord terminates a t the inferior L1 level. Endplate changes are present in inferior L5 superior L5 and inferior L2. L5-S1: No significant disc bulge or disc herniation. No spinal canal stenosis. No foraminal stenosi s. L4-L5: No significant disc bulge or disc herniation. No spinal canal stenosis. No foraminal stenosi s. L3-L4: No significant disc bulge or disc herniation. No spinal canal stenosis. No foraminal stenosi s. There is some mild facet hypertrophy and ligamentum flavum laxity which has posterior lateral thec al sac compression. L2-L3: Broad-based disc bulge is present. There is some disc space narrowing. Anterior sac flattening is present. Facet hypertrophy and ligamentum flavum laxity is present. Posterior lateral thecal sac compression is present. No stenosis present. Neural foramen are patent. L1-L2: No significant disc bulge or disc herniation. No spinal canal stenosis. No foraminal stenosi s. T12-L1: No significant disc bulge or disc herniation. No spinal canal stenosis. No foraminal stenos is. There is a compression deformity superior endplate of T12. Some mild posterior wall displacement is evident without cord contact and sagittal images. This are is not evaluated in axial plane images . No abnormal enhancement. Normal postsurgical enhancement in the soft tissues. IMPRESSION: 1. Facet hypertrophy and ligamentum flavum laxity is posterior-lateral thecal sac compression without stenosis L2-3 and L3-4. 2. Superior endplate compression deformities noted at T11-T12. Some posterior wall displacement of th e posterior T12 level is present without spinal canal stenosis in the sagittal plane but not evaluate d in axial plane. Findings appear to be old.
== END | disposition home or self-care (01) ==
LOC: RADMRIMAIN 19:59
PROVIDERS: ATTEND Family Medicine
DX: R90.82 White matter disease, unspecified (principal); M19.90 Unspecified osteoarthritis, unspecified site; M47.896 Other spondylosis, lumbar region; M51.24 Other intervertebral disc displacement, thoracic region; G95.29 Other cord compression
CPT/HCPCS: 70553; 72158; A9585

== ENCOUNTER → 2020-02-16 | Outpatient (CLI) | payer MEDICARE ==
[2020-02-16 11:50] VITALS: BP 111/80; PULSE 84; RESP 16; TEMP 98.3
--- NOTE | 2020-02-17 12:08 | P.PAINPG ---
Subjective Progress Note Date: 02/16/20 This is follow-up visit for this patient with a history of severe and chronic low back pain, and neck pain pain and left shoulder pain diagnosed with cervical radiculopathy, and lumbar spondylosis with lumbar facet arthropathy , her pain management between interventional pain management and medication management, recently we have done a radiofrequency ablation of the medial branch lumbar area on the left side, Patients currently on , Percocet 5/325 every 6 hours, Neurontin 300 mg 3 times a day, and she reported the current medication is helping her pain Patient denies any side effects of the medication, denies excessive drowsiness or sleepiness, denies suicidal ideation.,Patient denies any motor or sensory deficit , patient denies any fever or night sweats, denies any change in the bowel movements or urination, she is complaining of some muscle spasm in the lumbar and thoracic area Objective - Vital Signs Vital signs: Vital Signs Temp 98.3 F 02/16/20 11:45 Pulse 84 02/16/20 11:45 Resp 16 02/16/20 11:45 BP 111/80 02/16/20 11:45 Pulse Ox 98 02/16/20 11:45 Intake & Output 02/16/20 02/17/20 02/17/20 18:59 06:59 18:59 Weight 58.513 kg - Exam -Constitutiona : Cooperative , not in acute distress . -HEENT : nech : supple , no Lymphadenopathy , normal thyroid size . : eyes : no ptosis , no icterus, no photophobia . - neurologic : Cranial nerve II to XII intact , no focal neurological deffecit . -psychatric : alert , oriented X 3 , appropriate affect , intact judgment and insight . -Lymphatic : no Lymphadenopathy . - musculoskeltal : Lumber spine moter stegnth lower extremities ,thigh and legs 5/5 Right side , 5/5 Left side deep tendon reflexes : normal Knee Jerk , normal ankle Jerk lumber facet Loading Test =positive Right , positive Left Range of motion of the lumbar spine Flexion 30 degrees, extension 10 degrees Tenderness over the sacroiliac joint bilaterally Assessment and Plan Plan: chronic low back pain secondary to , but degenerative disc disease ,lumbar spondylosis with lumbar facet arthropathy . Myofascial pain syndrome lumbar and thoracic area Cervical radiculopathy chronic and current use of high-risk medication (opioids) Patient denies any side effects of the current pain medication and the current treatment/medication helping the patient to do activity of daily living , Diagnoses, prognosis, treatment options, including but not limited to physical therapy, medication management, interventional therapies, and surgery, were discussed with the patient All the questions answered The narcotic consent was signed and patient agreed and understood the side effects and complications of opioid treatment. Patient signed the narcotic agreement, and was orally counseled, not to overuse, not to abuse, not to Divert , not tp sell pain medication, and to take it as prescribed only, Patient was counseled not to drive or operate heavy equipment while using narcotic medication, and advised not to use alcohol or any Illicit drugs while using the narcotis. understanding that lack of compliance with any of the above instructions, will likely to cause discharge from, the pain service, not to renew his narcotic prescriptions MAPS Reviwed and it was apropriate . UDS was ordered today Medication managements= patient will be given prescription refills for Percocet 5/325 every 6 hours dispense 120 with one refill, Neurontin 300 mg 3 ti mes a day dispense 90 with 1 refill Interventions= patient would be good candidate to have radiofrequency ablation of the medial branch lumbar area right side L1 ,L2 ,L3 Time with Patient: Less than 30 PQRS Measure Charge Sheet Measure #130: Documentation of Current Meds in Medical Chart: Patient's medications documented in chart Measure #226: Tobacco Use: Screen & Cessation Intervention: Pt not a tobacco user Measure #111: Pneumonia Vaccination: Pneumococcal vaccine administered or previously received Measure #47: Advance Care Plan: Advance care planning discussed & documented, pt chose/unable to give Measure #412: Opioid Treatment Agreement: Documented signed opioid trtmnt agreemnt min once during opioid trtmnt Measure #408: Opioid Therapy Follow-up Evaluation: Patient had f/u eval minimum every 3 months during opioid therapy Measure #317: Preventitive Care & Scrn High Bld Press & F/U: Normal blood pressure, f/u not required Measure #128: Body Mass Index (BMI) Screening & Follow-up: BMI documented within normal parameters Measure #131: Pain Assessment & Follow-up: Pain positive & plan documented, Follow-up scheduled Measure #431: Unhealthy Alcohol Use Preventative Care & Scrn: Patient not identified as an unhealthy alcohol user PQRS Narrative: Smoking Status Former smoker Narcotic Agreement Date Signed 01/21/20 Blood Pressure 111/80 Pain Intensity [Lower Back] 7 Scale Used Numeric (1 - 10) Hx Alcohol Use (MH) No Home Medications: Ambulatory Orders Atorvastatin [Lipitor] 40 mg PO DAILY 03/17/18 Lisinopril-Hctz 20-12.5 mg [Zestoretic 20-12.5] 1 tab PO QAM 03/17/18 Omeprazole 40 mg PO PC-BRKFST PRN 03/18/19 Venlafaxine HCl [Effexor XR] 225 mg PO DAILY 11/07/19 Aspirin/Acetaminophen/Caffeine [Excedrin Migraine Caplet] 1 tab PO DAILY PRN 11/21/19 Butalb/APAP/Caff 50-325-40Mg [Fioricet 50-325-40] 1 tab PO DIRECTED PRN 11/21/19 Ondansetron Odt [Zofran ODT] 4 mg PO DIRECTED PRN 11/21/19 Gabapentin [Neurontin] 300 mg PO TID #90 cap 02/16/20 oxyCODONE HCL/ACETAMINOPHEN [Percocet 5-325 mg] 1 tab PO Q6HR PRN 30 Days #120 tab 02/16/20 oxyCODONE HCL/ACETAMINOPHEN [Percocet 5-325 mg] 1 tab PO Q6HR PRN 30 Days #120 tab 02/16/20 Controlled Substance Measures - Controlled Substance Measures Is patient prescribed a controlled substance at discharge?: Yes
== END | disposition home or self-care (01) ==
LOC: PNWHC3 10:51
PROVIDERS: ATTEND Specialist
DX: M51.36 Other intervertebral disc degeneration, lumbar region (principal); M47.816 Spondylosis without myelopathy or radiculopathy, lumbar region; M79.18 Myalgia, other site; M54.12 Radiculopathy, cervical region; G89.29 Other chronic pain; Z87.891 Personal history of nicotine dependence; Z79.82 Long term (current) use of aspirin; Z79.899 Other long term (current) drug therapy
CPT/HCPCS: 80307; G0482; G0463; 99211

== ENCOUNTER 2020-03-09 11:06 | Day surgery (SDC) | payer MEDICARE ==
[2020-02-24 11:57] VITALS: BMI 21.6
[~2020-03-09 11:06] MED LIST changes: -MIDAZOLAM 2 MG/2 ML VIAL ONE; -fentaNYL (PF) 50 MCG/ML 2 ML AMP ONE
[2020-03-09] MEDS ORDERED: LIDOCAINE 1% (10MG/ML) FOR IV START INTRADERMA ONE (11:37)
[2020-03-09 11:38] VITALS: RESP 16; TEMP 98.1
[2020-03-09] MEDS ORDERED: MIDAZOLAM 2 MG/2 ML VIAL ONE (12:01)
[2020-03-09] MEDS ORDERED: fentaNYL (PF) 50 MCG/ML 2 ML AMP ONE (12:01)
[2020-03-09] MEDS ORDERED: ROPIVACAINE 5MG/ML 20ML VIAL ONE (12:01)
[2020-03-09] MEDS ORDERED: LIDOCAINE 4% (PF) 5 ML AMP ONE (12:01)
[2020-03-09] MEDS ORDERED: LIDOCAINE 1% INJ 10MG/ML (20 ML MDV) ONE (12:01)
[2020-03-09] MEDS ORDERED: IV FLUID CONTINUATION 500 ML IV ONE (12:44)
[2020-03-09 12:59] VITALS: BP 103/59; PULSE 70
--- NOTE | 2020-03-09 13:16 | FL ---
EXAMINATION TYPE: FL guided pain mgmt statistic DATE OF EXAM: 03/09/2020 HISTORY: Fluoroscopy time 58 seconds of fluoroscopy provided. IMPRESSION: 1. Fluoroscopy time.
--- NOTE | 2020-03-10 11:58 | P.PCN ---
Description of Procedure: PREOPERATIVE DIAGNOSIS: 1. Lumbar Spondylosis with Facet Arthropathy without myelopathy. 2-. Lumbar degenerative disc disease POSTOPERATIVE DIAGNOSIS: 1. Lumbar Spondylosis with Facet Arthropathy without myelopathy. 2-. Lumbar degenerative disc disease PROCEDURES: Right Lumbar Radiofrequency Ablation of Medial Branches L1, L2, L3 nerves (L2-3 and L3-4 facet joints) SURGEON: Jean Pierre Castellanos M.D. ANESTHESIA: Moderate sedation with intravenous versed 2 mg and fentaneyl 100 mcg and local infiltration with lidocaine 1%. Sedation time 27 minutes EBL: Minimal PROCEDURE INDICATION: The patient with low back pain secondary to lumbar facet arthropathy who had more than 50% relief of her pain with previous diagnostic lumbar medial branch block with bupivacaine. PROCEDURE DESCRIPTION / TECHNIQUE: The patient was seen and identified in the preoperative area. Risks, benefits, complications, including but not limited to risk of infection ,bleeding , allergic reactions to the medications and no complete pain releife , and alternatives were discussed with the patient, the patient agreed to proceed with the procedure and signed the consent. IV was started. Vital signs remained stable throughout the procedure. Patient was taken to the OR and time out was completed. The patient was placed in the prone position on the procedure table. The lumber area was prepped and draped in the usual sterile fashion. . Vital signs were closely monitored during the procedure .IV sedation was used during the procedure to decrease patients anxiety. Using AP and then oblique fluoroscopy, the ``eye of the Duane dog corresponding to the connection between the superior and transverse articular processes of right L1, L2 , L3, were identified marked, and localized with 1% lidocaine. Subsequently, a [id number] radiofrequency cannula with a 10-mm active tip was advanced guided by fluoroscopy to each of the ``eyes of the Duane dog at right L1 , L2, L3 medial branches. They were placed in the AP, right Oblique, and lateral positions. Each site then underwent sensory testing at 50 Hz and 0 to 1 volt and motor testing at 2.5 Hz and 0 to 3 volt with local stimulation, but no radicular symptoms down the legs. Thereafter the right L2-3 , L3-4 sites underwent radiofrequency thermocoagulation at 80 degrees celsius for 90 seconds after injecting 0.5 ml of PF lidocaine 4%. then After the thermocoagulation done , 1 ml of the block solution containing Kenalog 40 mg and 4 ml of ropovacaine 0.5% was injected at the right L2-3 ,L3-4 levels after negative aspiration of CSF and blood and with no paresthesias. Cannulas were retracted while injecting lidocaine 1% until the needle is out. At the end of the procedure, the skin was cleansed and bandages were applied. COMPLICATIONS: No acute complications. DISPOSITION / PLANS: The patient was placed in a supine position and transferred to the recovery area in a stable condition for observation and was discharged from the recovery room after meeting discharge criteria. Home discharge instructions given to the patient by the staff. The patient was reexamined prior to discharge.
== END 2020-03-09 13:12 | disposition home or self-care (01) ==
LOC: ORPAIN 11:06
PROVIDERS: ATTEND Anesthesiology
DX: M47.816 Spondylosis without myelopathy or radiculopathy, lumbar region (principal); Z88.5 Allergy status to narcotic agent; Z88.2 Allergy status to sulfonamides; Z88.8 Allergy status to other drugs, medicaments and biological substances; Z88.1 Allergy status to other antibiotic agents; Z91.040 Latex allergy status; Z90.710 Acquired absence of both cervix and uterus
CPT/HCPCS: 64635; 64636; J2001 ×2; J2250; J3010; J2795; 99152; 99153

== ENCOUNTER → 2020-05-05 | Outpatient (CLI) | payer MEDICARE ==
[2020-05-05 14:32] VITALS: BP 103/74; PULSE 87; RESP 20; TEMP 98.1
--- NOTE | 2020-05-05 14:44 | P.PAINPG ---
Subjective Progress Note Date: 05/05/20 This is follow-up visit for this patient with a history of severe and chronic low back pain, and neck pain pain and left shoulder pain diagnosed with cervical radiculopathy, and lumbar spondylosis with lumbar facet arthropathy , her pain management between interventional pain management and medication management, recently we have done a radiofrequency ablation of the medial branch lumbar area on the right side for L2-L3 and L3-L4. Visit her most recent RFA only helped for about 2 weeks, however was great relief for 2 weeks. She did have the left side done in November which she said helped for 4-5 months. She would like to repeat this as well. She was interested in increasing her Percocet to 7.5, we discussed that we will try doing a repeat procedure again before we increase any opioid medication. Pain is located in the low back nonradiating described as sharp and stabbing in nature made worse with activity. Complains of significant muscle spasms as well. Patients currently on , Percocet 5/325 every 6 hours, Neurontin 300 mg 3 times a day, and she reported the current medication is helping her pain Patient denies any side effects of the medication, denies excessive drowsiness or sleepiness, denies suicidal ideation.,Patient denies any motor or sensory deficit , patient denies any fever or night sweats, denies any change in the bowel movements or urination, she is complaining of some muscle spasm in the lumbar and thoracic area Objective -Constitutiona : Cooperative , not in acute distress . -HEENT : nech : supple , no Lymphadenopathy , normal thyroid size . : eyes : no ptosis , no icterus, no photophobia . - neurologic : Cranial nerve II to XII intact , no focal neurological deffecit . -psychatric : alert , oriented X 3 , appropriate affect , intact judgment and insight . -Lymphatic : no Lymphadenopathy . - musculoskeltal : Lumber spine moter stegnth lower extremities ,thigh and legs 5/5 Right side , 5/5 Left side deep tendon reflexes : normal Knee Jerk , normal ankle Jerk lumber facet Loading Test =positive Right , positive Left Range of motion of the lumbar spine Flexion 30 degrees, extension 10 degrees Tenderness over the sacroiliac joint bilaterally Assessment and Plan Plan: chronic low back pain secondary to , but degenerative disc disease ,lumbar spondylosis with lumbar facet arthropathy . Myofascial pain syndrome lumbar and thoracic area Cervical radiculopathy chronic and current use of high-risk medication (opioids) Patient denies any side effects of the current pain medication and the current treatment/medication helping the patient to do activity of daily living , Diagnoses, prognosis, treatment options, including but not limited to physical therapy, medication management, interventional therapies, and surgery, were discussed with the patient All the questions answered The narcotic consent was signed and patient agreed and understood the side effects and complications of opioid treatment. Patient signed the narcotic agreement, and was orally counseled, not to overuse, not to abuse, not to Divert , not to sell pain medication, and to take it as prescribed only, Patient was counseled not to drive or operate heavy equipment while using narcotic medication, and advised not to use alcohol or any Illicit drugs while using the narcotics understanding that lack of compliance with any of the above instructions, will likely to cause discharge from, the pain service, not to renew his narcotic prescriptions MAPS Reviwed and it was apropriate . Medication managements= patient will be given prescription refills for Percocet 5/325 every 6 hours dispense 120 with one refill, Neurontin 300 mg 3 times a day dispense 90 with 1 refill. Repeat left sided RFA at L2-L3 and L3-L4 as this provided more relief than the right sided RFA PQRS Measure Charge Sheet Measure #130: Documentation of Current Meds in Medical Chart: Patient's medications documented in chart Measure #226: Tobacco Use: Screen & Cessation Intervention: Pt not a tobacco user Measure #111: Pneumonia Vaccination: Pneumococcal vaccine administered or previously received Measure #47: Advance Care Plan: Advance care planning discussed & documented, pt chose/unable to give Measure #412: Opioid Treatment Agreement: Documented signed opioid trtmnt agreemnt min once during opioid trtmnt Measure #408: Opioid Therapy Follow-up Evaluation: Patient had f/u eval minimum every 3 months during opioid therapy Measure #317: Preventitive Care & Scrn High Bld Press & F/U: Normal blood pressure, f/u not required Measure #128: Body Mass Index (BMI) Screening & Follow-up: BMI documented within normal parameters Measure #131: Pain Assessment & Follow-up: Pain positive & plan documented, Follow-up scheduled Measure #431: Unhealthy Alcohol Use Preventative Care & Scrn: Patient not identified as an unhealthy alcohol user PQRS Narrative: Smoking Status Former smoker Narcotic Agreement Date Signed 01/21/20 Blood Pressure 111/80 Pain Intensity [Lower Back] 7 Scale Used Numeric (1 - 10) Hx Alcohol Use (MH) No Controlled Substance Measures - Controlled Substance Measures Is patient prescribed a controlled substance at discharge?: Yes Objective - Vital Signs Vital signs: Intake & Output 05/03/20 05/04/20 05/04/20 18:59 06:59 18:59 Weight 63.503 kg PQRS Measure Charge Sheet PQRS Narrative: Smoking Status Former smoker Narcotic Agreement Date Signed 01/21/20 Pain Intensity [Back] 9 Scale Used Numeric (1 - 10) Hx Alcohol Use (MH) No Home Medications: Ambulatory Orders Atorvastatin [Lipitor] 40 mg PO DAILY 03/17/18 Lisinopril-Hctz 20-12.5 mg [Zestoretic 20-12.5] 1 tab PO QAM 03/17/18 Omeprazole 40 mg PO PC-BRKFST PRN 03/18/19 Venlafaxine HCl [Effexor XR] 225 mg PO DAILY 11/07/19 Aspirin/Acetaminophen/Caffeine [Excedrin Migraine Caplet] 1 tab PO DAILY PRN 11/21/19 Butalb/APAP/Caff 50-325-40Mg [Fioricet 50-325-40] 1 tab PO DIRECTED PRN 11/21/19 Ondansetron Odt [Zofran ODT] 4 mg PO DIRECTED PRN 11/21/19 Gabapentin [Neurontin] 300 mg PO TID #90 cap 02/16/20 oxyCODONE HCL/ACETAMINOPHEN [Percocet 5-325 mg] 1 tab PO Q6HR PRN 30 Days #120 tab 02/16/20 Controlled Substance Measures - Controlled Substance Measures Is patient prescribed a controlled substance at discharge?: Yes When asked, does pt state using other controlled substances?: No If prescribed controlled substance>3 days was MAPS reviewed?: Yes If Rx opioid, was Start Talking consent form obtained?: Yes If opioid is for acute pain is fill amount 7 days or less?: No Was information provided regarding opioid addiction?: Yes
== END | disposition home or self-care (01) ==
LOC: PNWHC3 13:47
PROVIDERS: ATTEND Anesthesiology
DX: M79.18 Myalgia, other site (principal); M51.36 Other intervertebral disc degeneration, lumbar region; M47.816 Spondylosis without myelopathy or radiculopathy, lumbar region; M54.12 Radiculopathy, cervical region; Z79.899 Other long term (current) drug therapy; Z79.3 Long term (current) use of hormonal contraceptives; Z87.891 Personal history of nicotine dependence
CPT/HCPCS: 99211

== ENCOUNTER 2020-06-22 07:35 | Day surgery (SDC) | payer MEDICARE ==
[2020-06-15 15:14] VITALS: BMI 24.2
[2020-06-22] MEDS ORDERED: MIDAZOLAM 2 MG/2 ML VIAL IV ONE (08:03)
[2020-06-22] MEDS ORDERED: LACTATED RINGERS 1,000 ML IV ONE (08:03)
[2020-06-22] MEDS ORDERED: LIDOCAINE 1% (10MG/ML) FOR IV START INTRADERMA ONE (08:03)
[2020-06-22 08:05] VITALS: RESP 16; TEMP 97.4
[2020-06-22] MEDS ORDERED: MIDAZOLAM 2 MG/2 ML VIAL ONE (08:46)
[2020-06-22] MEDS ORDERED: fentaNYL (PF) 50 MCG/ML 2 ML AMP ONE (08:46)
[2020-06-22] MEDS ORDERED: ROPIVACAINE 5MG/ML 20ML VIAL ONE (08:46)
[2020-06-22] MEDS ORDERED: TRIAMCINOLONE ACETONIDE 40 MG/ML 1 ML VIAL ONE (08:46)
--- NOTE | 2020-06-22 09:11 | P.PCN ---
Date of Procedure: 06/22/20 Preoperative Diagnosis: Lumbar spondylosis without myelopathy, and lumbar postlaminectomy syndrome Postoperative Diagnosis: Lumbar spondylosis without myelopathy, and lumbar postlaminectomy syndrome Procedure(s) Performed: Left side L2-L3, and L3-L4 lumbar medial branch radiofrequency ablation Anesthesia: MAC Surgeon: Felipe Montoya Estimated Blood Loss (ml): 0 IV fluids (ml): 100 Urine output (ml): 0 Pathology: none sent Condition: stable Disposition: PACU Indications for Procedure: Patient had a history of chronic low back pain status post lumbar radiofrequency ablation done previously which helped her good pain relief for close to 6 months. Came back for procedure. Description of Procedure: The patient was seen and identified in the preoperative area. Risks, benefits, complications, and alternatives were discussed with the patient. The patient agreed to proceed with the procedure and signed the consent. IV was started. Vital signs were stable. Patient was taken to the procedure room and timeout was completed. The patient was placed in the prone position on procedure table and a pillow was placed under the abdomen to reduce lumbar lordosis. The lumbosacral area was prepped an d draped in the usual sterile fashion. Critical pause was taken. Vital signs were closely monitored during the procedure. The fluoroscopic camera was placed in the anteroposterior position to identify the junction of superior articular process and its corresponding injection with its left-sided transverse process of L2, L3, L4 which were anesthetized with 1% lidocaine. We used 20-gauge 100-mm curved, sharp radiofrequency cannula with 10- mm active tip for the procedure. The first cannula was guided by fluoroscopy into the L2 superior articular process and its corresponding junction with its t ransverse process and pedicle. The second cannula was guided by fluoroscopy into the L3 SAP and its corresponding junction with its transverse process and its pedicle. The third needle was guided by the fluoroscopy into the L4 SAP and its corresponding junction with its transverse process and pedicle. After confirmation of needle tip position on oblique view, each site underwent motor testing at 2 Hz and 0 to 2.5 volts, and there was good motor stimulation in the back and no radicular symptoms or paresthesias. After confirmation of motor testing, each site was infiltrated with 0.5 mL at each level of block solution. Block solution contained 5 mL of 0.5% ropivacaine preservative free mixed with 40 MG of Kenalog. At this time, each site was ablated using continuous radiofrequency mode at 80 degrees Celsius for 90 seconds at each level. At the end of the procedure, each needle was retracted approximately 1 cm and the skin was infiltrated with 0.5% ropivacaine preservative free 1 ml at each site. Skin was cleansed and bandages were applied. Disposition : The patient tolerated the procedure very well. The patient was transferred to the recovery room and remained stable until discharged home. The patient was given detailed discharge instructions for infection, bleeding, and increased pain at the injection site, and was advised to seek immediate medical attention should significant side effects develop. The patient will be scheduled with Pain Clinic within 4 weeks duration.
[2020-06-22] MEDS ORDERED: IV FLUID CONTINUATION 300 ML IV ONE (09:14)
--- NOTE | 2020-06-22 09:23 | FL ---
EXAMINATION TYPE: FL guided pain mgmt statistic DATE OF EXAM: 06/22/2020 FLUOROSCOPY Fluoroscopy time of 6 seconds was used during left radiofrequency lumbar ablation. 2 image/s documen t/s the procedure.
[2020-06-22 09:49] VITALS: BP 146/73; PULSE 67
== END 2020-06-22 09:42 | disposition home or self-care (01) ==
LOC: ORPAIN 07:35
DX: G89.29 Other chronic pain (principal); M47.816 Spondylosis without myelopathy or radiculopathy, lumbar region; M96.1 Postlaminectomy syndrome, not elsewhere classified; Z88.1 Allergy status to other antibiotic agents; Z88.2 Allergy status to sulfonamides; Z88.8 Allergy status to other drugs, medicaments and biological substances; Z98.890 Other specified postprocedural states
CPT/HCPCS: 64635; 64636; J2250; J3301; J3010; J2795

== ENCOUNTER → 2020-06-30 | Outpatient (CLI) | payer MEDICARE ==
[2020-06-30 12:29] VITALS: BP 130/84; PULSE 109; RESP 18; TEMP 98.2
--- NOTE | 2020-06-30 12:41 | P.PN ---
Subjective Progress Note Date: 06/30/20 This is follow-up visit for this patient with a history of severe and chronic low back pain, and neck pain pain and left shoulder pain diagnosed with cervical radiculopathy, and lumbar spondylosis with lumbar facet arthropathy , her pain managed between interventional pain management ,and medication management, recently we have done a radiofrequency ablation of the medial branch lumbar area , and this helped her low back pain significantly Patients currently on , Percocet 5/325 every 6 hours when necessary, Neurontin 300 mg 3 times a day, and she reported the current medication is helping her pain Patient denies any side effects of the medication, denies excessive drowsiness or sleepiness, denies suicidal ideation.,Patient denies any motor or sensory deficit , patient denies any fever or night sweats, denies any change in the bowel movements or urination, and she reported that the current medication helping her to do activities of daily livings. Objective - Vital Signs Vital signs: Vital Signs Temp 98.2 F 06/30/20 12:26 Pulse 109 H 06/30/20 12:26 Resp 18 06/30/20 12:26 BP 130/84 06/30/20 12:26 Pulse Ox 96 06/30/20 12:26 - Exam -Constitutiona : Cooperative , not in acute distress . -HEENT : nech : supple , no Lymphadenopathy , normal thyroid size . : eyes : no ptosis , no icterus, no photophobia . - neurologic : Cranial nerve II to XII intact , no focal neurological deffecit . -psychatric : alert , oriented X 3 , appropriate affect , intact judgment and insight . -Lymphatic : no Lymphadenopathy . - musculoskeltal : Lumber spine moter stegnth lower extremities ,thigh and legs 5/5 Right side , 5/5 Left side deep tendon reflexes : normal Knee Jerk , normal ankle Jerk lumber facet Loading Test =positive Right , positive Left Range of motion of the lumbar spine Flexion 30 degrees, extension 10 degrees Tenderness over the sacroiliac joint bilaterally Assessment and Plan Plan: chronic low back pain secondary to lumbar degenerative disc disease ,lumbar spondylosis with lumbar facet arthropathy . Cervical radiculopathy chronic and current use of high-risk medication (opioids) Patient denies any side effects of the current pain medication and the current treatment/medication helping the patient to do activity of daily living , Diagnoses, prognosis, treatment options, including but not limited to physical therapy, medication management, interventional therapies, and surgery, were discussed with the patient All the questions answered The narcotic consent was signed and patient agreed and understood the side effects and complications of opioid treatment. Patient signed the narcotic agreement, and was orally counseled, not to overuse, not to abuse, not to Divert , not to sell pain medication, and to take it as prescribed only, Patient was counseled not to drive or operate heavy equipment while using narcotic medication, and advised not to use alcohol or any Illicit drugs while using the narcotics understanding that lack of compliance with any of the above instructions, will likely to cause discharge from, the pain service, not to renew his narcotic prescriptions [facility] Reviwed and it was apropriate . Medication managements= patient will be given prescription refills for Percocet 5/325 every 8 hours dispense 90with one refill, Neurontin 300 mg 3 times a day dispense 90 with 1 refill. Patient denies any side effects of the medication and she reported the current medication helping her to control her pain She denies any drowsiness or sleepiness, she denies any suicidal ideation she denies any nausea or vomiting She denies any motor or sensory deficits she is able to ambulate on her own using the medications PQRS Measure Charge Sheet Measure #130: Documentation of Current Meds in Medical Chart: Patient's medications documented in chart Measure #226: Tobacco Use: Screen & Cessation Intervention: Pt not a tobacco user Measure #111: Pneumonia Vaccination: Pneumococcal vaccine administered or previously received Measure #47: Advance Care Plan: Advance care planning discussed & documented, pt chose/unable to give Measure #412: Opioid Treatment Agreement: Documented signed opioid trtmnt agreemnt min once during opioid trtmnt Measure #408: Opioid Therapy Follow-up Evaluation: Patient had f/u eval minimum every 3 months during opioid therapy Measure #317: Preventitive Care & Scrn High Bld Press & F/U: Normal blood pressure, f/u not required Measure #128: Body Mass Index (BMI) Screening & Follow-up: BMI documented within normal parameters Measure #131: Pain Assessment & Follow-up: Pain positive & plan documented, Follow-up scheduled Measure #431: Unhealthy Alcohol Use Preventative Care & Scrn: Patient not identified as an unhealthy alcohol user PQRS Narrative:
== END | disposition home or self-care (01) ==
LOC: PNWHC3 12:13
PROVIDERS: ATTEND Anesthesiology
DX: M54.12 Radiculopathy, cervical region (principal); M51.36 Other intervertebral disc degeneration, lumbar region; M47.816 Spondylosis without myelopathy or radiculopathy, lumbar region; Z79.891 Long term (current) use of opiate analgesic
CPT/HCPCS: 99211

== ENCOUNTER 2020-08-07 09:08 | Observation (INO) | payer MEDICARE ==
[2020-08-07] MEDS ORDERED: DIPHENOX-ATROP 2.5-0.025 MG 1 EACH TAB PO STA (09:23)
[2020-08-07] MEDS ORDERED: SODIUM CHLORIDE 0.9% 500 ML 500 ML IV STA (09:23)
[2020-08-07] MEDS ORDERED: SODIUM CHLORIDE 0.9% 1,000 ML IV STA (09:23)
[2020-08-07 09:38] LABS: Basophils % (A) 0 %; Eosinophils # (A) 0.1 k/uL (0-0.7); Eosinophils % (A) 2 %; HCT 46.7 % (34.0-46.0); HGB 15.7 gm/dL (11.4-16.0); Lymphocytes % (A) 24 %; MCH 32.1 pg (25.0-35.0); MCHC 33.7 g/dL (31.0-37.0); MCV 95.4 fL (80.0-100.0); Mean Platelet Volume 7.2; Monocytes # (A) 0.5 k/uL (0-1.0); Monocytes % (A) 6 %; Neutrophils # (A) 5.4 k/uL (1.3-7.7); Neutrophils % (A) 65 %; Platelet Count 319 k/uL (150-450); RBC 4.89 m/uL (3.80-5.40); RDW 13.6 % (11.5-15.5); WBC 8.3 k/uL (3.8-10.6)
--- NOTE | 2020-08-07 09:39 | ED ---
General Adult HPI - General Chief complaint: Nausea/Vomiting/Diarrhea Stated complaint: NVD/dizziness Time Seen by Provider: 08/07/20 09:10 Source: patient, EMS, RN notes reviewed, old records reviewed Mode of arrival: EMS Limitations: no limitations - History of Present Illness Initial comments: This is a 70-year-old female who presents to the emergency department complaining of diarrhea since Sunday. Patient states she also vomited once chest and once today. Patient also complains that today she got very dizzy and passed out one time. Patient also complains of multiple episodes of anterior chest pain that lasted 5 minutes patient. Patient states she also has some shortness of breath but she wasn't sure that the shortness of breath was ass ociated with chest pain. Patient does complain about chest pain with exertion this morning. Patient denies any fever chills or cough per patient states she has diffuse abdominal pain but it isn't different areas throughout the day. Patient denies any back pain. Patient denies any dysuria hematuria urinary frequency. - Related Data Home Medications Medication Instructions Recorded Confirmed Atorvastatin [Lipitor] 40 mg PO DAILY 03/17/18 06/22/20 Lisinopril-Hctz 20-12.5 mg 1 tab PO QAM 03/17/18 06/22/20 [Zestoretic 20-12.5] Omeprazole 40 mg PO PC-BRKFST PRN 03/18/19 06/22/20 Venlafaxine HCl [Effexor XR] 225 mg PO DAILY 11/07/19 06/22/20 Aspirin/Acetaminophen/Caffeine 1 tab PO DAILY PRN 11/21/19 06/22/20 [Excedrin Migraine Caplet] Butalb/APAP/Caff 50-325-40Mg 1 tab PO DIRECTED PRN 11/21/19 06/22/20 [Fioricet 50-325-40] Ondansetron Odt [Zofran ODT] 4 mg PO DIRECTED PRN 11/21/19 06/22/20 Previous Rx's Medication Instructions Recorded Gabapentin [Neurontin] 300 mg PO TID #90 cap 06/30/20 oxyCODONE HCL/ACETAMINOPHEN 1 tab PO Q8HR PRN #90 tab 06/30/20 [Percocet 5-325 mg] oxyCODONE HCL/ACETAMINOPHEN 1 tab PO Q8HR PRN 30 Days #90 tab 06/30/20 [Percocet 5-325 mg] Allergies Allergy/AdvReac Type Severity Reaction Status Date / Time Sulfa (Sulfonamide Allergy Severe Rash/Hives Verified 06/22/20 07:46 Antibiotics) Tetracyclines Allergy Severe Rash/Hives Verified 06/22/20 07:46 latex Allergy Rash/Hives Verified 06/22/20 07:46 lorazepam [From Ativan] AdvReac Confusion Verified 06/22/20 07:46 TIDE AND EXTRA LAUNDRY SOAP Allergy Rash/Hives Uncoded 06/22/20 07:46 Review of Systems ROS Statement: Those systems with pertinent positive or pertinent negative responses have been documented in the HPI. ROS Other: All systems not noted in ROS Statement are negative. Past Medical History Past Medical History: Cancer, Fibromyalgia, GERD/Reflux, GI Bleed, Hyperlipidemia, Hypertension, Liver Disease, Osteoarthritis (OA), Rheumatoid Arthritis (RA), Syncope Additional Past Medical History / Comment(s): Past lower GI bleed, diverticulitis, IBS, gastric ulcer, hepatitis A, L breast cancer with joyner rgeries/chemo and radiation, cervical cancer with surgery, bronchitis, osteoporosis, neuropathy bilateral feet and hands, chronic pain, past L humeral fracture, T11 spinal injury, chronic cervical and lumbar back pain, recurrent falls, migraines, osteoarthritis and rheumatoid arthritis in multiple joints History of Any Multi-Drug Resistant Organisms: None Reported Past Surgical History: Section, Hysterectomy, Joint Replacement, Orthopedic Surgery, Tonsillectomy Additional Past Surgical History / Comment(s): ORIF L humerus with carlos/screws since removed, total L shoulder arthroplasty, cervical and lumbar fusions, pain clinic procedures, D&C, bilateral breast reductions with nonhealing wound and had closure/skin grafting, L breast lumpectomies and then L breast mastectomy, R tympanoplasty, EGDs, colonoscopies, ivy fundoplasty, loop recorder. Past Anesthesia/Blood Transfusion Reactions: No Reported Reaction Additional Past Anesthesia/Blood Transfusion Reaction / Comment(s): Pt received blood this admission without reaction. Past Psychological History: Anxiety, Depression, Panic Disorder, PTSD Smoking Status: Former smoker Past Alcohol Use History: None Reported Past Drug Use History: None Reported - Past Family History Mother Family Medical History: Myocardial Infarction ([place]) Additional Family Medical History / Comment(s): . General Exam - General Exam Comments Initial Comments: GENERAL: Patient is well-developed and well-nourished. Patient is nontoxic and well- hydrated and is in mild distress. ENT: Neck is soft and supple. No significant lymphadenopathy is noted. Oropharynx is clear. Dry mucous membranes. Neck has full range of motion without eliciting any pain. EYES: The sclera were anicteric and conjunctiva were pink and moist. Extraocular movements were intact and pupils were equal round and reactive to light. Eyelids were unremarkable. PULMONARY: Unlabored respirations. Good breath sounds bilaterally. No audible rales rhonchi or wheezing was noted. CARDIOVASCULAR: There is a regular rate and rhythm without any murmurs gallops or rubs. ABDOMEN: Patient has diffuse abdominal tenderness without any rebound or guarding SKIN: Skin is clear with no lesions or rashes and otherwise unremarkable. NEUROLOGIC: Patient is alert and oriented x3. Cranial nerves II through XII are grossly intact. Motor and sensory are also intact. Normal speech, volume and content. Symmetrical smile. MUSCULOSKELETAL: Normal extremities with adequate strength and full range of motion. LYMPHATICS: No significant lymphadenopathy is noted PSYCHIATRIC: Normal psychiatric evaluation. Limitations: no limitations Course Vital Signs 08/07/20 09:12 Temperature 97.6 F Medical Decision Making - Medical Decision Making EKG shows normal sinus rhythm at 84 bpm MO interval 236 QRS is 76 QT interval 340 QTC is 411. Patient's EKG shows no ST segment elevation or depression. - Lab Data Result diagrams: 08/07/20 09:28 08/07/20 09:28 Lab Results 08/07/20 08/07/20 08/07/20 Range/Units 09:28 09:28 09:28 WBC 8.3 (3.8-10.6) k/uL RBC 4.89 (3.80-5.40) m/uL Hgb 15.7 (11.4-16.0) gm/dL Hct 46.7 H (34.0-46.0) % MCV 95.4 (80.0-100.0) fL MCH 32.1 (25.0-35.0) pg MCHC 33.7 (31.0-37.0) g/dL RDW 13.6 (11.5-15.5) % Plt Count 319 (150-450) k/uL MPV 7.2 Neutrophils % 65 % Lymphocytes % 24 % Monocytes % 6 % Eosinophils % 2 % Basophils % 0 % Neutrophils # 5.4 (1.3-7.7) k/uL Lymphocytes # 2.0 (1.0-4.8) k/uL Monocytes # 0.5 (0-1.0) k/uL Eosinophils # 0.1 (0-0.7) k/uL Basophils # 0.0 (0-0.2) k/uL PT 10.5 (9.0-12.0) sec INR 1.0 (<1.2) APTT 22.4 (22.0-30.0) sec Sodium 135 L (137-145) mmol/L Potassium 4.0 (3.5-5.1) mmol/L Chloride 104 (98-107) mmol/L Carbon Dioxide 20 L (22-30) mmol/L Anion Gap 11 mmol/L BUN 43 H (7-17) mg/dL Creatinine 1.42 H (0.52-1.04) mg/dL Est GFR (CKD-EPI)AfAm 44 (>60 ml/min/1.73 sqM) Est GFR (CKD-EPI)NonAf 38 (>60 ml/min/1.73 sqM) Glucose 114 H (74-99) mg/dL Plasma Lactic Acid Eliseo (0.7-2.0) mmol/L Calcium 11.0 H (8.4-10.2) mg/dL Total Bilirubin 0.6 (0.2-1.3) mg/dL AST 30 (14-36) U/L ALT 24 (4-34) U/L Alkaline Phosphatase 117 (38-126) U/L Troponin I (0.000-0.034) ng/mL Total Protein 7.5 (6.3-8.2) g/dL Albumin 4.4 (3.5-5.0) g/dL Amylase 45 (30-110) U/L Lipase 104 (23-300) U/L Coronavirus (PCR) (Not Detectd) Influenza Type A RNA (Not Detectd) Influenza Type B (PCR) (Not Detectd) 08/07/20 08/07/20 08/07/20 Range/Units 09:28 09:28 09:31 WBC (3.8-10.6) k/uL RBC (3.80-5.40) m/uL Hgb (11.4-16.0) gm/dL Hct (34.0-46.0) % MCV (80.0-100.0) fL MCH (25.0-35.0) pg MCHC (31.0-37.0) g/dL RDW (11.5-15.5) % Plt Count (150-450) k/uL MPV Neutrophils % % Lymphocytes % % Monocytes % % Eosinophils % % Basophils % % Neutrophils # (1.3-7.7) k/uL Lymphocytes # (1.0-4.8) k/uL Monocytes # (0-1.0) k/uL Eosinophils # (0-0.7) k/uL Basophils # (0-0.2) k/uL PT (9.0-12.0) sec INR (<1.2) APTT (22.0-30.0) sec Sodium (137-145) mmol/L Potassium (3.5-5.1) mmol/L Chloride (98-107) mmol/L Carbon Dioxide (22-30) mmol/L Anion Gap mmol/L BUN (7-17) mg/dL Creatinine (0.52-1.04) mg/dL Est GFR (CKD-EPI)AfAm (>60 ml/min/1.73 sqM) Est GFR (CKD-EPI)NonAf (>60 ml/min/1.73 sqM) Glucose (74-99) mg/dL Plasma Lactic Acid Eliseo 1.7 (0.7-2.0) mmol/L Calcium (8.4-10.2) mg/dL Total Bilirubin (0.2-1.3) mg/dL AST (14-36) U/L ALT (4-34) U/L Alkaline Phosphatase (38-126) U/L Troponin I <0.012 (0.000-0.034) ng/mL Total Protein (6.3-8.2) g/dL Albumin (3.5-5.0) g/dL Amylase (30-110) U/L Lipase (23-300) U/L Coronavirus (PCR) Not Detected (Not Detectd) Influenza Type A RNA (Not Detectd) Influenza Type B (PCR) (Not Detectd) 08/07/20 Range/Units 09:31 WBC (3.8-10.6) k/uL RBC (3.80-5.40) m/uL Hgb (11.4-16.0) gm/dL Hct (34.0-46.0) % MCV (80.0-100.0) fL MCH (25.0-35.0) pg MCHC (31.0-37.0) g/dL RDW (11.5-15.5) % Plt Count (150-450) k/uL MPV Neutrophils % % Lymphocytes % % Monocytes % % Eosinophils % % Basophils % % Neutrophils # (1.3-7.7) k/uL Lymphocytes # (1.0-4.8) k/uL Monocytes # (0-1.0) k/uL Eosinophils # (0-0.7) k/uL Basophils # (0-0.2) k/uL PT (9.0-12.0) sec INR (<1.2) APTT (22.0-30.0) sec Sodium (137-145) mmol/L Potassium (3.5-5.1) mmol/L Chloride (98-107) mmol/L Carbon Dioxide (22-30) mmol/L Anion Gap mmol/L BUN (7-17) mg/dL Creatinine (0.52-1.04) mg/dL Est GFR (CKD-EPI)AfAm (>60 ml/min/1.73 sqM) Est GFR (CKD-EPI)NonAf (>60 ml/min/1.73 sqM) Glucose (74-99) mg/dL Plasma Lactic Acid Eliseo (0.7-2.0) mmol/L Calcium (8.4-10.2) mg/dL Total Bilirubin (0.2-1.3) mg/dL AST (14-36) U/L ALT (4-34) U/L Alkaline Phosphatase (38-126) U/L Troponin I (0.000-0.034) ng/mL Total Protein (6.3-8.2) g/dL Albumin (3.5-5.0) g/dL Amylase (30-110) U/L Lipase (23-300) U/L Coronavirus (PCR) (Not Detectd) Influenza Type A RNA Not Detected (Not Detectd) Influenza Type B (PCR) Not Detected (Not Detectd) Disposition Clinical Impression: Chest pain, Syncope, Acute diarrhea Disposition: ADMITTED IP TO THIS HOSP Referrals: Easton Tripathi DO [Primary Care Provider] - 1-2 days Time of Disposition: 10:46
[2020-08-07 09:48] LABS: Albumin 4.4 g/dL (3.5-5.0); Total Bilirubin 0.6 mg/dL (0.2-1.3); Total Protein 7.5 g/dL (6.3-8.2)
[2020-08-07 09:49] LABS: Partial Thromboplastin Time 22.4 sec (22.0-30.0); Prothrombin Time 10.5 sec (9.0-12.0)
--- NOTE | 2020-08-07 09:58 | XR ---
EXAMINATION TYPE: XR chest 2V DATE OF EXAM: 08/07/2020 COMPARISON: 03/05/2019 HISTORY: Shortness of breath TECHNIQUE: Frontal and lateral views of the chest are obtained. FINDINGS: Scattered senescent parenchymal changes noted. Hyperinflation compatible with COPD. No evidence for infiltrate. No evidence for atelectasis. Heart size is stable. Mediastinal structures are stable and grossly unremarkable. No evidence for hilar prominence. Degenerative changes dorsal spine. IMPRESSION: 1. No evidence for acute pulmonary disease.
[2020-08-07] MEDS ORDERED: KETOROLAC 15 MG/ML 1 ML VIAL IVP STA (10:17)
[2020-08-07] MEDS ORDERED: NITROGLYCERIN SL TABS 0.4 MG TAB SUBLINGUAL PRN (10:47)
[2020-08-07] MEDS ORDERED: ASPIRIN 81 MG PO STA (10:47)
[2020-08-07] MEDS ORDERED: DIPHENOX-ATROP 2.5-0.025 MG 1 EACH TAB PO PRN (10:48)
[2020-08-07] MEDS ORDERED: HYDROmorphone 0.5 MG/0.5 ML SYRINGE IVP STA (11:03)
[2020-08-07 11:25] LABS: Appearance,Urine Clear (Clear); Bacteria,Urine Rare /hpf; Bilirubin,Urine Negative (Negative); Blood,Urine Negative (Negative); Color,Urine Yellow; Glucose,Urine (UA) Negative (Negative); Hyaline Casts,Urine 1 /lpf (0-2); Ketones,Urine Trace (Negative); Leukocyte Esterase,Urine Large (Negative); Mucus,Urine Rare /hpf; Nitrite,Urine Negative (Negative); PH, Urine 5.5 (5.0-8.0); Protein,Urine Trace (Negative); RBC,Urine 1 /hpf (0-5); Specific Gravity,Urine 1.021 (1.001-1.035); Squamous Epithelial Cell,Urine 2 /hpf (0-4); Urobilinogen,Urine <2.0 mg/dL (<2.0); WBC,Urine 10 /hpf (0-5)
[2020-08-07] MEDS: NITROGLYCERIN OINT 1 INCH/GM PACKET TOPICAL SCH ×2 (12:23→17:35)
--- NOTE | 2020-08-07 12:44 | P.CRDCN ---
History of Present Illness Consult date: 08/07/20 Chief complaint: Presyncope History of present illness: This is a 70-year-old female patient with a past medical history significant for hypertension and dyslipidemia and history of breast cancer who was admitted to the hospital mainly because of diarrhea for the last 24 hours. We consulted to see the patient because of an episode of presyncope and also an episode of chest discomfort. The patient is not quite sure if she lost her consciousness but she stated that she was about to lose her consciousness. No symptoms of dizziness or lightheadedness. No symptoms of feeling of heart racing or fluttering. Beside that she did say that she did have an episode of chest discomfort which she describes discomfort that's sharp in the mid of the chest without any radiation and without any associated symptoms. The chest discomfort is clearly not exertional. The EKG showed sinus rhythm without any significant ST or T- wave abnormalities. The first set of enzymes came in to be unremarkable. The chest x-ray showed no acute abnormalities. The patient is not aware of any prior history of coronary artery disease or congestive heart failure or cardiac arrhythmia and she stated that she never seen a ballpoint pen cartridge tester in the past. An echocardiogram from last year showed normal left ventricular systolic function. Past Medical History Past Medical History: Cancer, Fibromyalgia, GERD/Reflux, GI Bleed, H yperlipidemia, Hypertension, Liver Disease, Osteoarthritis (OA), Rheumatoid Arthritis (RA), Syncope Additional Past Medical History / Comment(s): Past lower GI bleed, divertic ulitis, IBS, gastric ulcer, hepatitis A, L breast cancer with surgeries/chemo and radiation, cervical cancer with surgery, bronchitis, osteoporosis, neuropathy bilateral feet and hands, chronic pain, past L humeral fracture, T11 spinal injury, chronic cervical and lumbar back pain, recurrent falls, migraines, osteoarthritis and rheumatoid arthritis in multiple joints History of Any Multi-Drug Resistant Organisms: None Reported Past Surgical History: Section, Hysterectomy, Joint Replacement, Orthopedic Surgery, Tonsillectomy Additional Past Surgical History / Comment(s): ORIF L humerus with carlos/screws since removed, total L shoulder arthroplasty, cervical and lumbar fusions, pain clinic procedures, D&C, bilateral breast reductions with nonhealing wound and had closure/skin grafting, L breast lumpectomies and then L breast mastectomy, R tympanoplasty, EGDs, colonoscopies, ivy fundoplasty, loop recorder. Past Anesthesia/Blood Transfusion Reactions: No Reported Reaction Additional Past Anesthesia/Blood Transfusion Reaction / Comment(s): Pt received blood this admission without reaction. Past Psychological History: Anxiety, Depression, Panic Disorder, PTSD Smoking Status: Former smoker Past Alcohol Use History: None Reported Past Drug Use History: None Reported - Past Family History Mother Family Medical History: Myocardial Infarction (CT) Additional Family Medical History / Comment(s): . Medications and Allergies Home Medications Medication Instructions Recorded Confirmed Type Atorvastatin [Lipitor] 40 mg PO DAILY 03/17/18 08/07/20 History Lisinopril-Hctz 20-12.5 mg 1 tab PO QAM 03/17/18 08/07/20 History [Zestoretic 20-12.5] Omeprazole 40 mg PO PC-BRKFST PRN 03/18/19 08/07/20 History Venlafaxine HCl [Effexor XR] 225 mg PO DAILY 11/07/19 08/07/20 History Aspirin/Acetaminophen/Caffeine 1 tab PO DAILY PRN 11/21/19 08/07/20 History [Excedrin Migraine Caplet] Gabapentin [Neurontin] 300 mg PO TID #90 cap 06/30/20 08/07/20 Rx oxyCODONE HCL/ACETAMINOPHEN 1 tab PO Q8HR PRN #90 tab 06/30/20 08/07/20 Rx [Percocet 5-325 mg] Acetaminophen Tab [Tylenol] 325 mg PO DAILY PRN 08/07/20 08/07/20 History Cholecalciferol (Vitamin D3) 250 mcg PO DIRECTED 08/07/20 08/07/20 History [Vitamin D3 (5000 Iu)] Cyanocobalamin [Vitamin B-12] 500 mcg PO DAILY 08/07/20 08/07/20 History Multivit-Min/FA/Lycopen/Lutein 1 tab PO DAILY 08/07/20 08/07/20 History [Centrum Silver Tablet] Ubidecarenone [Co Q-10] 200 mg PO DAILY 08/07/20 08/07/20 History Allergies Allergy/AdvReac Type Severity Reaction Status Date / Time Sulfa (Sulfonamide Allergy Severe Rash/Hives Verified 08/07/20 11:11 Antibiotics) Tetracyclines Allergy Severe Rash/Hives Verified 08/07/20 11:11 latex Allergy Rash/Hives Verified 08/07/20 11:11 lorazepam [From Ativan] AdvReac Confusion Verified 08/07/20 11:11 TIDE AND EXTRA LAUNDRY SOAP Allergy Rash/Hives Uncoded 08/07/20 11:11 Physical Exam Vitals: Vital Signs Temp Pulse Resp BP Pulse Ox 08/07/20 12:00 97.6 F 74 18 139/71 100 08/07/20 11:20 74 18 139/71 100 08/07/20 10:55 94 18 129/79 99 08/07/20 09:12 97.6 F Intake and Output 08/06/20 08/07/20 08/07/20 22:59 06:59 14:59 Other: Weight 61.235 kg - Constitutional General appearance: no acute distress - Respiratory Respiratory: bilateral: CTA - Cardiovascular Rhythm: regular Heart sounds: normal: S1, S2 Results 08/07/20 09:28 08/07/20 09:28 Cardiac Enzymes 08/07/20 08/07/20 Range/Units 09:28 09:28 AST 30 (14-36) U/L Troponin I <0.012 (0.000-0.034) ng/mL Coagulation 08/07/20 Range/Units 09:28 PT 10.5 (9.0-12.0) sec APTT 22.4 (22.0-30.0) sec CBC 08/07/20 Range/Units 09:28 WBC 8.3 (3.8-10.6) k/uL RBC 4.89 (3.80-5.40) m/uL Hgb 15.7 (11.4-16.0) gm/dL Hct 46.7 H (34.0-46.0) % Plt Count 319 (150-450) k/uL Comprehensive Metabolic Panel 08/07/20 Range/Units 09:28 Sodium 135 L (137-145) mmol/L Potassium 4.0 (3.5-5.1) mmol/L Chloride 104 (98-107) mmol/L Carbon Dioxide 20 L (22-30) mmol/L BUN 43 H (7-17) mg/dL Creatinine 1.42 H (0.52-1.04) mg/dL Glucose 114 H (74-99) mg/dL Calcium 11.0 H (8.4-10.2) mg/dL AST 30 (14-36) U/L ALT 24 (4-34) U/L Alkaline Phosphatase 117 (38-126) U/L Total Protein 7.5 (6.3-8.2) g/dL Albumin 4.4 (3.5-5.0) g/dL Current Medications Generic Name Dose Route Start Last Admin Trade Name Freq PRN Reason Stop Dose Admin Aspirin 325 mg 08/08/20 09:00 Aspirin 325 Mg Tab PO DAILY [facility] Diphenoxylate HCl/Atropine 1 each 08/07/20 10:48 Diphenox-Atrop 2.5-0.025 Mg 1 Each Tab PO Q6HR PRN Diarrhea Nitroglycerin 0.4 mg 08/07/20 10:47 Nitroglycerin Sl Tabs 0.4 Mg Tab SUBLINGUAL Q5M PRN Chest Pain Nitroglycerin 1 inch 08/07/20 12:00 08/07/20 12:23 Nitroglycerin Oint 1 Inch/Gm Packet TOPICAL Not Given Q6HR [facility] Intake and Output 08/06/20 08/07/20 08/07/20 22:59 06:59 14:59 Other: Weight 61.235 kg Patient Weight 08/08/20 06:59 Weight 61.235 kg 08/07/20 09:28 08/07/20 09:28 Assessment and Plan Assessment: Assessment #1 diarrhea of unknown etiology #2 atypical chest discomfort #3 presyncope #4 hypertension #5 dyslipidemia Plan #1 rule out acute coronary event #2 recent echo showed normal LV function #3 rule out cardiac arrhythmia #4 follow-up with the patient
[2020-08-07] MEDS ORDERED: ASPIRIN-ACET-CAFF 250-250-65MG 1 EACH TAB PO PRN (12:59)
[2020-08-07] MEDS ORDERED: PANTOPRAZOLE 40 MG TABLET PO PRN (12:59)
[2020-08-07] MEDS ORDERED: ACETAMINOPHEN TAB 325 MG TAB PO PRN (12:59)
[2020-08-07] MEDS: oxyCODONE-APAP 5-325MG 1 EACH TAB PO PRN ×2 (13:52→21:30)
[2020-08-07] MEDS: SODIUM CHLORIDE 0.9% 1,000 ML IV SCH ×2 (13:52→21:27)
[2020-08-07] MEDS: GABAPENTIN 300 MG CAP PO SCH ×2 (13:52→20:54)
[2020-08-07] MEDS: ENOXAPARIN 40 MG/0.4 ML SYRINGE SQ SCH (13:52)
--- NOTE | 2020-08-07 18:06 | P.HPIM ---
History of Present Illness H&P Date: 08/07/20 Chief Complaint: passed out Chief Complaint: Abdominal pain History of presenting complaint: This is a pleasant 70-year-old patient of Dr. Tripathi. Chronic stable medical conditions include chronic fibromyalgia, chronic low back pain, rheumatoid art hritis, peripheral neuropathy, hyperlipidemia,Simental's esophagus,colonic diverticulosis. Patient also follows with Dr. Olson from the pain clinic. Patient now presents with 5 days of diarrhea. Multiple stools a day. No blood. Abdominal pain. Diffuse. Nausea. No vomiting. No fever and chills. Feels tired and rundown. To the point patient passed out couple of times. Patient's last colonoscopy was 2 years ago. Has been feeling dizzy. Also complained of some episodes of chest pain anteriorly lasting about 5 minutes. Not sure about shortness of breath. No radiation. Review of systems: GEN.: Tired EYES: None HEENT: None NECK: None RESPIRATORY: None CARDIOVASCULAR: None GASTROINTESTINAL: As above GENITOURINARY: None MUSCULOSKELETAL: Chronic pain in multiple joints LYMPHATICS: None HEMATOLOGICAL: None PSYCHIATRY: anxious NEUROLOGICAL: None Past medical history to include: Fibromyalgia, hyperlipidemia, rheumatoid arthritis, peripheral neuropathy, chronic low back pain, Simental's esophagus, colonic diverticulosis, irritable bowel syndrome, left breast cancer with surgeries and chemotherapy and radiation, cervical cancer with surgery, osteoporosis, T11 spinal surgery, anxiety depression. Chronic pain Social history: Patient smoked for 14 years, stopped in 1977. Patient was an alcoholic for about 21 years ago. Patient did pain medication the remote past. Did crack, heroin, many years ago. Lives alone. Patient been clean for many years Physical examination: VITAL SIGNS: 98, 77, 18, 1 32 x 56, 96% room air GENERAL: BMI 23.2, sitting up in bed, bit tired. EYES: Pupils equal. Conjunctiva normal. HEENT: External appearance of nose and ears normal, oral cavity grossly normal. NECK: JVD not raised; masses not palpable. HEART: First and second heart sounds are normal; no edema. LUNGS: Respiratory rate normal; clear to auscultation. ABDOMEN: Soft, mild tenderness, no guarding or rigidity, liver spleen not palpable, no masses palpable. PSYCH: Alert and oriented x3; mood and affect anxious. NEUROLOGICAL: Cranial nerves grossly intact; no facial asymmetry, power and sensation grossly intact. LYMPHATICS: No lymph nodes palpable in the axilla and neck INVESTIGATIONS, reviewed in the clinical context: White count 8.3 hemoglobin 15.7 platelets 319 potassium 4 bun 43 creatinine 1.4 to Calcium 11 Troponin I 3 negative Coronavirus [PCR], influenza type A, influenza type B: All not detected EKG tracing personally reviewed by me-normal sinus rhythm, Q waves in inferior leads Chest x-ray-no abnormality reported Assessment and plan: -Acute diarrhea 5 days duration with no blood. Abdominal pain. Possible colitis. Check for ova and parasites. Put the patient on liquid diet. Consult GI. Empirically put the patient on Flagyl and Cipro. -Acute kidney injury, prerenal from volume loss from diarrhea. Give IV fluids. Hold off Zestoretic -Anterior chest wall pain. Could be angina. Been precipitated by hypokalemia. Telemetry. Consult cardiology -Essential hypertension. Hold off Zestoretic for now. Resume her blood pressure remained stable. -Chronic fibromyalgia -Hyperlipidemia, continue Lipitor -Chronic rheumatoid arthritis, continue Percocet -Peripheral neuropathy, continue Neurontin -Chronic low back pain from T12 T11 compression fracture, continue Percocet -Simental's esophagus, continue PPI -Colonic diverticulosis, asymptomatic -anxiety depression, continue Effexor XR Care was discussed with the patient. Repeat labs in the morning. Past Medical History Past Medical History: Cancer, Fibromyalgia, GERD/Reflux, GI Bleed, Hyperlipidemia, Hypertension, Liver Disease, Osteoarthritis (OA), Rheumatoid Arthritis (RA), Syncope Additional Past Medical History / Comment(s): Past lower GI bleed, diverticulitis, IBS, gastric ulcer, hepatitis A, L breast cancer with surgeries/chemo and radiation, cervical cancer with surgery, bronchitis, osteoporosis, neuropathy bilateral feet and hands, chronic pain, past L humeral fracture, T11 spinal injury, chronic cervical and lumbar back pain, recurrent falls, migraines, osteoarthritis and rheumatoid arthritis in multiple joints History of Any Multi-Drug Resistant Organisms: None Reported Past Surgical History: Section, Hysterectomy, Joint Replacement, Orthopedic Surgery, Tonsillectomy Additional Past Surgical History / Comment(s): ORIF L humerus with carlos/screws since removed, total L shoulder arthroplasty, cervical and lumbar fusions, pain clinic procedures, D&C, bilateral breast reductions with nonhealing wound and had closure/skin grafting, L breast lumpectomies and then L breast mastectomy, R tympanoplasty, EGDs, colonoscopies, ivy fundoplasty, loop recorder. Past Anesthesia/Blood Transfusion Reactions: No Reported Reaction Additional Past Anesthesia/Blood Transfusion Reaction / Comment(s): Pt received blood this admission without reaction. Past Psychological History: Anxiety, Depression, Panic Disorder, PTSD Smoking Status: Former smoker Past Alcohol Use History: None Reported Past Drug Use History: None Reported - Past Family History Mother Family Medical History: Myocardial Infarction ([place]) Additional Family Medical History / Comment(s): . Medications and Allergies Home Medications Medication Instructions Recorded Confirmed Type Atorvastatin [Lipitor] 40 mg PO DAILY 03/17/18 08/07/20 History Lisinopril-Hctz 20-12.5 mg 1 tab PO QAM 03/17/18 08/07/20 History [Zestoretic 20-12.5] Omeprazole 40 mg PO PC-BRKFST PRN 03/18/19 08/07/20 History Venlafaxine HCl [Effexor XR] 225 mg PO DAILY 11/07/19 08/07/20 History Aspirin/Acetaminophen/Caffeine 1 tab PO DAILY PRN 11/21/19 08/07/20 History [Excedrin Migraine Caplet] Gabapentin [Neurontin] 300 mg PO TID #90 cap 06/30/20 08/07/20 Rx oxyCODONE HCL/ACETAMINOPHEN 1 tab PO Q8HR PRN #90 tab 06/30/20 08/07/20 Rx [Percocet 5-325 mg] Acetaminophen Tab [Tylenol] 325 mg PO DAILY PRN 08/07/20 08/07/20 History Cholecalciferol (Vitamin D3) 250 mcg PO DIRECTED 08/07/20 08/07/20 History [Vitamin D3 (5000 Iu)] Cyanocobalamin [Vitamin B-12] 500 mcg PO DAILY 08/07/20 08/07/20 History Multivit-Min/FA/Lycopen/Lutein 1 tab PO DAILY 08/07/20 08/07/20 History [Centrum Silver Tablet] Ubidecarenone [Co Q-10] 200 mg PO DAILY 08/07/20 08/07/20 History Allergies Allergy/AdvReac Type Severity Reaction Status Date / Time Sulfa (Sulfonamide Allergy Severe Rash/Hives Verified 08/07/20 11:11 Antibiotics) Tetracyclines Allergy Severe Rash/Hives Verified 08/07/20 11:11 latex Allergy Rash/Hives Verified 08/07/20 11:11 lorazepam [From Ativan] AdvReac Confusion Verified 08/07/20 11:11 TIDE AND EXTRA LAUNDRY SOAP Allergy Rash/Hives Uncoded 08/07/20 11:11 Physical Exam Vitals: Vital Signs Temp Pulse Pulse Resp BP BP Pulse Ox 08/07/20 13:07 77 18 08/07/20 12:00 97.6 F 74 18 139/71 100 08/07/20 11:20 74 18 139/71 100 08/07/20 11:03 98.0 F 77 18 132/56 96 08/07/20 10:55 94 18 129/79 99 08/07/20 09:12 97.6 F Intake and Output 08/07/20 08/07/20 08/07/20 06:59 14:59 22:59 Output Total 0 Balance 0 Output: Stool 0 Other: Voiding Method Toilet # Voids 0 Weight 61.235 kg Results CBC & Chem 7: 08/07/20 09:28 08/07/20 09:28 Labs: Abnormal Lab Results - Last 24 Hours (Table) 08/07/20 08/07/20 08/07/20 Range/Units 09:28 09:28 10:55 Hct 46.7 H (34.0-46.0) % Sodium 135 L (137-145) mmol/L Carbon Dioxide 20 L (22-30) mmol/L BUN 43 H (7-17) mg/dL Creatinine 1.42 H (0.52-1.04) mg/dL Glucose 114 H (74-99) mg/dL Calcium 11.0 H (8.4-10.2) mg/dL Urine Protein Trace H (Negative) Urine Ketones Trace H (Negative) Ur Leukocyte Esterase Large H (Negative) Urine WBC 10 H (0-5) /hpf Urine Bacteria Rare H (None) /hpf Urine Mucus Rare H (None) /hpf Thrombosis Risk Factor Assmnt - Choose All That Apply Any of the Below Risk Factors Present?: No Other Risk Factors: Yes Each Risk Factor Represents 2 Points: Age 61-74 years Thrombosis Risk Factor Assessment Total Risk Factor Score: 2 Thrombosis Risk Factor Assessment Level: Low Risk
[2020-08-07] MEDS: CIPROFLOXACIN HCL 500 MG TAB PO SCH (20:54)
[2020-08-07] MEDS: metroNIDAZOLE 500 MG TAB PO SCH (20:54)
[2020-08-08] MEDS: metroNIDAZOLE 500 MG TAB PO SCH ×2 (00:58→08:43)
[2020-08-08] MEDS: NITROGLYCERIN OINT 1 INCH/GM PACKET TOPICAL SCH ×3 (00:59→12:13)
[2020-08-08 02:13] VITALS: RESP 16; TEMP 97.5
[2020-08-08 03:34] LABS: African American GFR (CKD) 85 (>60 ml/min/1.73 sqM); Anion Gap 10 mmol/L; Blood Urea Nitrogen 27 mg/dL (7-17); Calcium 9.9 mg/dL (8.4-10.2); Carbon Dioxide 18 mmol/L (22-30); Chloride 113 mmol/L (98-107); Cholesterol 129 mg/dL (<200); Glucose 87 mg/dL (74-99); HDL Cholesterol 46 mg/dL (40-60); LDL Cholesterol,Calculated 53 mg/dL (0-99); Non-African American GFR(CKD) 74 (>60 ml/min/1.73 sqM); Sodium 141 mmol/L (137-145); Triglycerides 149 mg/dL (<150)
[2020-08-08] MEDS: SODIUM CHLORIDE 0.9% 1,000 ML IV SCH (05:25)
[2020-08-08 08:14] VITALS: BP 95/65; PULSE 78
--- NOTE | 2020-08-08 08:34 | P.PN ---
Subjective Progress Note Date: 08/08/20 Principal diagnosis: Chest pain This is a 70-year-old female patient with hypertension and dyslipidemia who was admitted to the hospital with diarrhea and we're consulted to see the patient for chest discomfort. The chest discomfort was atypical. The patient was seen today. She is chest pain-free. I advised the patient to undergo a stress test and the patient would like to go home and have it done as an outpatient. From the cardiovascular standpoint of view, the patient can be discharged home. Objective - Vital Signs Vital signs: Vital Signs Temp 97.5 F L 08/08/20 07:00 Pulse 78 08/08/20 07:00 Resp 16 08/08/20 07:00 BP 95/65 08/08/20 07:00 Pulse Ox 99 08/08/20 07:00 Intake & Output 08/07/20 08/08/20 08/08/20 18:59 06:59 18:59 Output Total 0 0 Balance 0 0 Weight 61.235 kg Output: Stool 0 0 Other: Voiding Method Toilet Toilet # Voids 0 2 - Constitutional General appearance: Present: no acute distress - Respiratory Respiratory: bilateral: CTA - Cardiovascular Rhythm: regular Heart sounds: normal: S1, S2 - Labs CBC & Chem 7: 08/07/20 09:28 08/08/20 03:05 Labs: Abnormal Lab Results - Last 24 Hours (Table) 08/07/20 08/07/20 08/07/20 Range/Units 09:28 09:28 10:55 Hct 46.7 H (34.0-46.0) % Sodium 135 L (137-145) mmol/L Chloride (98-107) mmol/L Carbon Dioxide 20 L (22-30) mmol/L BUN 43 H (7-17) mg/dL Creatinine 1.42 H (0.52-1.04) mg/dL Glucose 114 H (74-99) mg/dL Calcium 11.0 H (8.4-10.2) mg/dL Urine Protein Trace H (Negative) Urine Ketones Trace H (Negative) Ur Leukocyte Esterase Large H (Negative) Urine WBC 10 H (0-5) /hpf Urine Bacteria Rare H (None) /hpf Urine Mucus Rare H (None) /hpf 08/08/20 Range/Units 03:05 Hct (34.0-46.0) % Sodium (137-145) mmol/L Chloride 113 H (98-107) mmol/L Carbon Dioxide 18 L (22-30) mmol/L BUN 27 H (7-17) mg/dL Creatinine (0.52-1.04) mg/dL Glucose (74-99) mg/dL Calcium (8.4-10.2) mg/dL Urine Protein (Negative) Urine Ketones (Negative) Ur Leukocyte Esterase (Negative) Urine WBC (0-5) /hpf Urine Bacteria (None) /hpf Urine Mucus (None) /hpf Assessment and Plan Assessment: Assessment #1 diarrhea of unknown etiology #2 atypical chest discomfort #3 presyncope #4 hypertension #5 dyslipidemia Plan #1 acute coronary syndrome was ruled out #2 the patient would like to go home. #3 she to have a stress test as an outpatient
[2020-08-08] MEDS: ENOXAPARIN 40 MG/0.4 ML SYRINGE SQ SCH (08:43)
[2020-08-08] MEDS: GABAPENTIN 300 MG CAP PO SCH (08:43)
[2020-08-08] MEDS: CIPROFLOXACIN HCL 500 MG TAB PO SCH (08:43)
[2020-08-08] MEDS: oxyCODONE-APAP 5-325MG 1 EACH TAB PO PRN (08:49)
[2020-08-08] MEDS ORDERED: VENLAFAXINE HCL ER 75 MG CAP PO SCH (09:00)
[2020-08-08] MEDS ORDERED: ATORVASTATIN 40 MG TAB PO SCH (09:00)
[2020-08-08] MEDS ORDERED: CYANOCOBALAMIN 500 MCG TAB PO SCH (09:00)
[2020-08-08] MEDS ORDERED: ASPIRIN 81 MG PO SCH (09:00)
[2020-08-08] MEDS ORDERED: ASPIRIN 325 MG TAB PO SCH (09:00)
--- NOTE | 2020-08-08 20:10 | P.DS ---
Providers Date of admission: 08/07/20 10:47 Expected date of discharge: 08/08/20 Attending physician: Esau Flannery Consults: 08/07/20 10:47 Consult Physician Urgent Consulting Provider: [facility] Consult Reason/Comments: Chest pain, syncope Do you want consulting provider notified?: Yes Primary care physician: Easton Tripathi [facility] Course: Chief Complaint: passed out History of presenting complaint: This is a pleasant 70-year-old patient of Dr. Tripathi. Chronic stable medical conditions include chronic fibromyalgia, chronic low back pain, rheumatoid arthritis, peripheral neuropathy, hyperlipidemia,Simental's esophagus,colonic diverticulosis. Patient also follows with Dr. Olson from the pain clinic. Patient now presents with 5 days of diarrhea. Multiple stools a day. No blood. Abdominal pain. Diffuse. Nausea. No vomiting. No fever and chills. Feels tired and rundown. To the point patient passed out couple of times. Patient's last colonoscopy was 2 years ago. Has been feeling dizzy. Also complained of some episodes of chest pain anteriorly lasting about 5 minutes. Not sure about shortness of breath. No radiation. Admitted with acute kidney injury, prerenal from acute colitis possibly infectious. Treat his IV fluids and put on Flagyl and ciprofloxacin. Today-kidney functions normalized. No further diarrhea. Oral intake good. Discussed with the patient. Seen by cardiology. They'll follow up as an outpatient with a possible stress test. Computed 3 day course of ciprofloxacin and Flagyl. Soft bland diet. Discussed with the patient. Patient to follow-up with GI. Patient to hold off on lisinopril hydrochlorothiazide until systolic blood pressure comes up to 140. Advised to check blood pressure daily. Discussion and discharge planning more than 35 minutes Manufacturing Finance Manager: Dr. Thompson from cardiology Past medical history to include: Fibromyalgia, hyperlipidemia, rheumatoid arthritis, peripheral neuropathy, chronic low back pain, Simental's esophagus, colonic diverticulosis, irritable bowel syndrome, left breast cancer with surgeries and chemotherapy and radiation, cervical cancer with surgery, osteoporosis, T11 spinal surgery, anxiety depression. Chronic pain Social history: Patient smoked for 14 years, stopped in 1977. Patient was an alcoholic for about 21 years ago. Patient did pain medication the remote past. Did crack, heroin, many years ago. Lives alone. Patient been clean for many years Physical examination: VITAL SIGNS: 97.5, 78, 16, 95/65, 99% room air GENERAL: BMI 23.2, sitting up in bed, bit tired. EYES: Pupils equal. Conjunctiva normal. HEENT: External appearance of nose and ears normal, oral cavity grossly normal. NECK: JVD not raised; masses not palpable. HEART: First and second heart sounds are normal; no edema. LUNGS: Respiratory rate normal; clear to auscultation. ABDOMEN: Soft, no tenderness, no guarding or rigidity, liver spleen not pal pable, no masses palpable. PSYCH: Alert and oriented x3; mood and affect anxious. INVESTIGATIONS, reviewed in the clinical context: August 08: Potassium 4 creatinine 0.82 White count 8.3 hemoglobin 15.7 platelets 319 potassium 4 bun 43 creatinine 1.4 to Calcium 11 Troponin I 3 negative Coronavirus [PCR], influenza type A, influenza type B: All not detected EKG tracing personally reviewed by me-normal sinus rhythm, Q waves in inferior leads Chest x-ray-no abnormality reported Assessment and plan: -Possible acute infectious colitis. Responded well to Cipro and Flagyl. No pain no diarrhea anymore. -Acute kidney injury, prerenal from volume loss from diarrhea. Give IV fluids. Hold off Zestoretic. Improved -Anterior chest wall pain. Could be angina. Been precipitated by hypovolemia. Telemetry. A myocardial ALLERGY. We'll follow-up as an outpatient. -Essential hypertension. Hold off Zestoretic for now. Resume her blood pressure remained stable. -Chronic fibromyalgia -Hyperlipidemia, continue Lipitor -Chronic rheumatoid arthritis, continue Percocet -Peripheral neuropathy, continue Neurontin -Chronic low back pain from T12 T11 compression fracture, continue Percocet -Simental's esophagus, continue PPI -Colonic diverticulosis, asymptomatic -anxiety depression, continue Effexor XR Disposition: Home Plan - Discharge Summary Discharge Rx Participant: No New Discharge Prescriptions: New Aspirin 81 mg PO DAILY chew Ciprofloxacin HCl [Cipro] 500 mg PO BID #4 tab metroNIDAZOLE [Flagyl] 500 mg PO QID #6 tab Continue Atorvastatin [Lipitor] 40 mg PO DAILY Omeprazole 40 mg PO PC-BRKFST PRN PRN Reason: REFLUX Venlafaxine HCl [Effexor XR] 225 mg PO DAILY Aspirin/Acetaminophen/Caffeine [Excedrin Migraine Caplet] 1 tab PO DAILY PRN PRN Reason: Migraine Headache oxyCODONE HCL/ACETAMINOPHEN [Percocet 5-325 mg] 1 tab PO Q8HR PRN #90 tab PRN Reason: Pain Gabapentin [Neurontin] 300 mg PO TID #90 cap Acetaminophen Tab [Tylenol] 325 mg PO DAILY PRN PRN Reason: Fever And/ Or Pain Multivit-Min/FA/Lycopen/Lutein [Centrum Silver Tablet] 1 tab PO DAILY Ubidecarenone [Co Q-10] 200 mg PO DAILY Cyanocobalamin [Vitamin B-12] 500 mcg PO DAILY Cholecalciferol (Vitamin D3) [Vitamin D3 (5000 Iu)] 250 mcg PO DIRECTED Discontinued Lisinopril-Hctz 20-12.5 mg [Zestoretic 20-12.5] 1 tab PO QAM Discharge Medication List Atorvastatin [Lipitor] 40 mg PO DAILY 03/17/18 [History] Omeprazole 40 mg PO PC-BRKFST PRN 03/18/19 [History] Venlafaxine HCl [Effexor XR] 225 mg PO DAILY 11/07/19 [History] Aspirin/Acetaminophen/Caffeine [Excedrin Migraine Caplet] 1 tab PO DAILY PRN 11/21/19 [History] Gabapentin [Neurontin] 300 mg PO TID #90 cap 06/30/20 [Rx] oxyCODONE HCL/ACETAMINOPHEN [Percocet 5-325 mg] 1 tab PO Q8HR PRN #90 tab 06/30/20 [Rx] Acetaminophen Tab [Tylenol] 325 mg PO DAILY PRN 08/07/20 [History] Cholecalciferol (Vitamin D3) [Vitamin D3 (5000 Iu)] 250 mcg PO DIRECTED 08/07/20 [History] Cyanocobalamin [Vitamin B-12] 500 mcg PO DAILY 08/07/20 [History] Multivit-Min/FA/Lycopen/Lutein [Centrum Silver Tablet] 1 tab PO DAILY 08/07/20 [History] Ubidecarenone [Co Q-10] 200 mg PO DAILY 08/07/20 [History] Aspirin 81 mg PO DAILY chew 08/08/20 [Rx] Ciprofloxacin HCl [Cipro] 500 mg PO BID #4 tab 08/08/20 [Rx] metroNIDAZOLE [Flagyl] 500 mg PO QID #6 tab 08/08/20 [Rx] Follow up Appointment(s)/Referral(s): Yann Rudolph MD [STAFF PHYSICIAN] - 1 Week (Office is currently closed, please call the office Sunday am to schedule your appointment.) Easton Tripathi DO [Primary Care Provider] - 1-2 days (Office is currently closed, please call the office Sunday am to schedule your appointment.) Bg Haddad MD [STAFF PHYSICIAN] - 1 Week (Office is currently closed, please call the office Sunday to schedule your appointment.) Patient Instructions/Handouts: Chest Pain (DC), Acute Abdominal Pain (DC) Activity/Diet/Wound Care/Special Instructions: sofyt bland diet daily BP check -resume lisinopril;/hctz when SBP>140 Discharge Disposition: HOME SELF-CARE
== END 2020-08-08 13:40 | disposition home or self-care (01) ==
LOC: EC 09:08 → 6NMEDSUR 10:47
PROVIDERS: ADMIT Hospitalist; ATTEND Hospitalist
DX: R07.89 Other chest pain (principal); N17.9 Acute kidney failure, unspecified; K52.9 Noninfective gastroenteritis and colitis, unspecified; E86.1 Hypovolemia; R55 Syncope and collapse; R06.02 Shortness of breath; E78.5 Hyperlipidemia, unspecified; I10 Essential (primary) hypertension; M06.9 Rheumatoid arthritis, unspecified; M79.7 Fibromyalgia; K21.9 Gastro-esophageal reflux disease without esophagitis; M19.90 Unspecified osteoarthritis, unspecified site; E87.6 Hypokalemia; G43.909 Migraine, unspecified, not intractable, without status migrainosus; K58.9 Irritable bowel syndrome, unspecified; G89.29 Other chronic pain; M54.5 Low back pain; M81.0 Age-related osteoporosis without current pathological fracture; G62.9 Polyneuropathy, unspecified; K22.70 Barrett's esophagus without dysplasia; F32.9 Major depressive disorder, single episode, unspecified; F41.9 Anxiety disorder, unspecified; F41.0 Panic disorder [episodic paroxysmal anxiety]; F43.10 Post-traumatic stress disorder, unspecified; K57.30 Diverticulosis of large intestine without perforation or abscess without bleeding; Z20.828 Contact with and (suspected) exposure to other viral communicable diseases; Z79.82 Long term (current) use of aspirin; Z79.899 Other long term (current) drug therapy; Z79.891 Long term (current) use of opiate analgesic; Z88.1 Allergy status to other antibiotic agents; Z91.040 Latex allergy status; Z88.2 Allergy status to sulfonamides; Z88.8 Allergy status to other drugs, medicaments and biological substances; Z91.048 Other nonmedicinal substance allergy status; Z85.41 Personal history of malignant neoplasm of cervix uteri; Z85.3 Personal history of malignant neoplasm of breast; Z92.21 Personal history of antineoplastic chemotherapy; Z92.3 Personal history of irradiation; Z87.891 Personal history of nicotine dependence
CPT/HCPCS: 96372 ×2; 96361; 96374; 96375; 99285; 36415; 93005; 80061; 80053; 80048; 82150; 83605; 83690; 84484; 85025; 85610; 85730; 81001; 87502; 87635; 71046; G0378 ×2; J1650 ×2; J1885; J1170

== ENCOUNTER → 2020-09-06 | Outpatient (CLI) | payer MEDICARE ==
[2020-09-06 13:57] VITALS: BP 135/86; PULSE 90; RESP 16; TEMP 98.2
--- NOTE | 2020-09-06 14:18 | P.PN ---
Subjective Progress Note Date: 09/06/20 This is a 70-year-old lady with history of axial lower back pain status post lumbar fusion. The patient's pain has been relatively well controlled with a combination of interventional pain procedures and oral opioids including Percocet 5 mg 3 times a day and Neurontin 300 mg 3 times a day. The patient denies any weakness in the lower extremities or any bowel or bladder dysfunction however she did have loss of sphincter control once before and was admitted to the hospital for that. At that time no spinal cause was found for her symptoms. Patient denies new-onset weakness, bowel/bladder incontinence, or any other signs or symptoms of cauda equina syndrome. There are no signs of acute intoxication, and no indications of medication diversion or overuse. In addition to above, 13-point review of systems is also negative for chest pain, shortness of breath, changes in vision, changes in hearing, new onset weakness, abdominal pain, diarrhea, extreme fatigue, malaise, fever, skin changes, homicidal or suicidal ideation, or bowel or bladder incontinence. Vital Signs: Reviewed in EMR Gen: AAOx3, NAD HEENT: PERRLA,hearing grossly normal Pulm: resp unlabored Neck: supple, trachea midline Neuro exam of the lower extremities: Normal muscle strength bilaterally Straight leg raising test: Lakhwinder's test: Range of motion of the lumbar spine: Facet loading test: Tenderness in the paravertebral musculature: Positive lumbar paravertebral musc ulature bilaterally Neuro: CN II-XII grossly intact, Imaging: Reviewed in EMR/chart Assessment: Failed back surgery syndrome Lumbar spondylosis without myelopathy Opioid dependence Plan: 1. Explanation: Opioid and psychological risk scores were reviewed. Diagnoses, prognoses, and multiple treatment options including but not limited to physical therapy, interventional therapies, adjuvant medical therapies, narcotic medication therapies, and surgery were discussed with the patient and all questions were answered to the patient's satisfaction. 2. Opioid agreement: Signed with the patient and the patient is warned not to use opioids while driving or before driving and not to combine opioids with benzodiazepines or alcohol. 3. Counseling: The patient was counseled extensively on SMOKING CESSATION, BODY MASS INDEX, EXERCISE. Specifically, the patient was instructed regarding the importance of smoking cessation, obesity, and exercise in the context of both chronic pain and overall health. 4. Procedures: None at this point 5. Consultations: None 6. Investigations: None 7. Medications: Continue Percocet 5 mg 3 times a day and Neurontin 300 mg 3 times a day 8. Disposition: Return to clinic in 8 weeks 9. Maps were reviewed and were appropriate. Controlled Substance Measures Is patient prescribed a controlled substance at discharge?: Yes When asked, does pt state using other controlled substances?: No If prescribed controlled substance>3 days was MAPS reviewed?: Yes If Rx opioid, was Start Talking consent form obtained?: Yes If opioid is for acute pain is fill amount 7 days or less?: No Was information provided regarding opioid addiction?: Yes Objective - Vital Signs Vital signs: Vital Signs Temp 98.2 F 09/06/20 13:54 Pulse 90 09/06/20 13:54 Resp 16 09/06/20 13:54 BP 135/86 09/06/20 13:54 Pulse Ox 99 09/06/20 13:54
== END ==
LOC: PNWHC3 13:35
PROVIDERS: ATTEND Anesthesiology
DX: M47.816 Spondylosis without myelopathy or radiculopathy, lumbar region (principal); F11.20 Opioid dependence, uncomplicated; M96.1 Postlaminectomy syndrome, not elsewhere classified
CPT/HCPCS: 80307; G0482; G0463; 99211; 99212

== ENCOUNTER 2020-10-09 14:32 | Inpatient (IN) | payer MEDICARE ==
[2020-10-09] MEDS ORDERED: SODIUM CHLORIDE 0.9% 2,000 ML IV ONE (14:57)
[2020-10-09] MEDS ORDERED: MORPHINE SULFATE 4 MG/ML SYRINGE IV STA (14:58)
[2020-10-09] MEDS ORDERED: ONDANSETRON 4 MG/2 ML VIAL IVP STA (14:58)
--- NOTE | 2020-10-09 15:34 | ED ---
General Adult HPI - General Chief complaint: Dizziness Stated complaint: NVD Time Seen by Provider: 10/09/20 14:34 Source: patient, EMS Mode of arrival: EMS Limitations: no limitations - History of Present Illness Initial comments: This patient is 70-year-old woman who presents to be evaluated for feeling weak and lightheaded after having diarrhea for 3 days. The patient states she is having a number of bowel movements each day for the past 3 days. No tarry stools noted, but she thinks she may have observed some blood with last bowel movement. Patient's also had an episode of vomiting earlier today, no coffee- ground or hematemesis. Patient states she is not tolerating fluids over the past day. She was not able to keep down her pain medication today either. Onset/Timin -: days(s) Consistency: constant Improves with: none Worsens with: none Associated Symptoms: nausea/vomiting Treatments Prior to Arrival: none - Related Data Home Medications Medication Instructions Recorded Confirmed Atorvastatin [Lipitor] 40 mg PO DAILY 03/17/18 10/09/20 Omeprazole 40 mg PO DAILY 03/18/19 10/09/20 Venlafaxine HCl [Effexor XR] 225 mg PO DAILY 11/07/19 10/09/20 Acetaminophen Tab [Tylenol] 325 mg PO DAILY PRN 08/07/20 10/09/20 Cholecalciferol (Vitamin D3) 250 mcg PO Q48H 08/07/20 10/09/20 [Vitamin D3 (5000 Iu)] Cyanocobalamin [Vitamin B-12] 500 mcg PO DAILY 08/07/20 10/09/20 Multivit-Min/FA/Lycopen/Lutein 1 tab PO DAILY 08/07/20 10/09/20 [Centrum Silver Tablet] Ubidecarenone [Co Q-10] 200 mg PO DAILY 08/07/20 10/09/20 Turmeric Root Extract [Turmeric] 1,000 mg PO DAILY 09/03/20 10/09/20 Lisinopril-Hctz 20-12.5 mg 1 tab PO DAILY 10/09/20 10/09/20 [Zestoretic 20-12.5] Previous Rx's Medication Instructions Recorded Gabapentin [Neurontin] 300 mg PO TID #90 cap 06/30/20 oxyCODONE HCL/ACETAMINOPHEN 1 tab PO Q8HR PRN #90 tab 06/30/20 [Percocet 5-325 mg] Aspirin 81 mg PO DAILY chew 08/08/20 Cholestyramine (with Sugar) 4 gm PO BID@1000,1800 #60 packet 10/15/20 [Questran Packet] Diphenox-Atrop 2.5-0.025 mg 1 each PO Q6HR PRN #30 tab 10/15/20 [Lomotil] Famotidine [Pepcid] 20 mg PO BID #60 tab 10/15/20 Allergies Allergy/AdvReac Type Severity Reaction Status Date / Time Sulfa (Sulfonamide Allergy Severe Rash/Hives Verified 10/09/20 18:11 Antibiotics) Tetracyclines Allergy Severe Rash/Hives Verified 10/09/20 18:11 latex Allergy Rash/Hives Verified 10/09/20 18:11 lorazepam [From Ativan] AdvReac Confusion Verified 10/09/20 18:11 TIDE AND EXTRA LAUNDRY SOAP Allergy Rash/Hives Uncoded 10/09/20 15:07 Review of Systems ROS Statement: Those systems with pertinent positive or pertinent negative responses have been documented in the HPI. ROS Other: All systems not noted in ROS Statement are negative. Past Medical History Past Medical History: Cancer, Fibromyalgia, GERD/Reflux, GI Bleed, Hyperlipidemia, Hypertension, Liver Disease, Osteoarthritis (OA), Rheumatoid Arthritis (RA), Syncope Additional Past Medical History / Comment(s): Past lower GI bleed, di verticulitis, IBS, gastric ulcer, hepatitis A, L breast cancer with surgeries/chemo and radiation, cervical cancer with surgery, bronchitis, osteoporosis, neuropathy bilateral feet and hands, chronic pain, past L humeral fracture, T11 spinal injury, chronic cervical and lumbar back pain, recurrent f alls, migraines, osteoarthritis and rheumatoid arthritis in multiple joints History of Any Multi-Drug Resistant Organisms: None Reported Past Surgical History: Section, Hysterectomy, Joint Replacement, Orthopedic Surgery, Tonsillectomy Additional Past Surgical History / Comment(s): ORIF L humerus with carlos/screws si nce removed, total L shoulder arthroplasty, cervical and lumbar fusions, pain clinic procedures, D&C, bilateral breast reductions with nonhealing wound and had closure/skin grafting, L breast lumpectomies and then L breast mastectomy, R tympanoplasty, EGDs, colonoscopies, ivy fundoplasty, loop recorder. Past Anesthesia/Blood Transfusion Reactions: No Reported Reaction Additional Past Anesthesia/Blood Transfusion Reaction / Comment(s): Pt received blood this admission without reaction. Past Psychological History: Anxiety, Depression, Panic Disorder, PTSD Smoking Status: Former smoker Past Alcohol Use History: None Reported Past Drug Use History: None Reported - Past Family History Mother Family Medical History: Myocardial Infarction (MS) Additional Family Medical History / Comment(s): . General Exam Limitations: no limitations General appearance: alert, in no apparent distress Head exam: Present: atraumatic, normocephalic Eye exam: Present: normal appearance. Absent: scleral icterus, conjunctival injection ENT exam: Present: normal oropharynx, mucous membranes dry Neck exam: Present: normal inspection Respiratory exam: Present: normal lung sounds bilaterally. Absent: respiratory distress, wheezes, rales, rhonchi, stridor Cardiovascular Exam: Present: normal rhythm, tachycardia, normal heart sounds. Absent: systolic murmur, diastolic murmur, rubs, gallop GI/Abdominal exam: Present: soft, tenderness (Mild diffuse tenderness without rebound or guarding). Absent: distended, guarding, rebound, rigid, pulsatile mass, hernia Extremities exam: Present: normal inspection, normal capillary refill. Absent: pedal edema, calf tenderness Back exam: Present: normal inspection Neurological exam: Present: alert Skin exam: Present: warm, dry, intact, normal color. Absent: rash Course Vital Signs 10/09/20 10/09/20 10/09/20 15:07 15:09 15:30 Temperature 98.1 F Pulse Rate 121 H 120 H 110 H Respiratory 18 16 18 Rate Blood Pressure 136/93 85/50 90/61 O2 Sat by Pulse 99 99 99 Oximetry 10/09/20 10/09/20 16:30 17:20 Temperature Pulse Rate 102 H 106 H Respiratory 16 16 Rate Blood Pressure 108/82 105/63 O2 Sat by Pulse 98 99 Oximetry Medical Decision Making - Lab Data Result diagrams: 10/15/20 04:31 10/15/20 10:34 Lab Results 10/09/20 10/09/20 10/09/20 Range/Units 15:52 15:52 15:52 WBC 10.1 (3.8-10.6) k/uL RBC 3.99 (3.80-5.40) m/uL Hgb 12.5 D (11.4-16.0) gm/dL Hct 39.7 (34.0-46.0) % MCV 99.6 (80.0-100.0) fL MCH 31.4 (25.0-35.0) pg MCHC 31.5 (31.0-37.0) g/dL RDW 13.5 (11.5-15.5) % Plt Count 201 (150-450) k/uL Plt Count Comment MPV 7.9 Immature Gran % (Auto) % Absolute Nucleated RBC (0.00-0.00) X 10*3/uL Neutrophils % % Neutrophils % (Manual) 81 % Band Neuts % (Manual) 8 % Lymphocytes % % Lymphocytes % (Manual) 6 % Monocytes % % Monocytes % (Manual) 5 % Eosinophils % % Basophils % % Immature Gran # (0.00-0.04) X 10*3/uL Neutrophils # (1.80-7.70) X 10*3/uL Neutrophils # (Manual) 8.90 H (1.3-7.7) k/uL Lymphocytes # (0.90-5.00) X 10*3/uL Lymphocytes # (Manual) 0.61 L (1.0-4.8) k/uL Monocytes # (0.20-1.00) X 10*3/uL Monocytes # (Manual) 0.51 (0-1.0) k/uL Eosinophils # (0.04-0.35) X 10*3/uL Basophils # (0.00-0.10) X 10*3/uL Nucleated RBCs 0 (0-0) /100 WBC NRBC/100 WBC Diff (0.0-0.0) /100 WBCS Manual Slide Review Performed RBC Morphology Normal ESR (0-20) mm/hr Sodium 141 (137-145) mmol/L Potassium 4.0 (3.5-5.1) mmol/L Chloride 112 H (98-107) mmol/L Carbon Dioxide 18 L (22-30) mmol/L Anion Gap 11 mmol/L BUN 38 H (7-17) mg/dL Creatinine 1.98 H (0.52-1.04) mg/dL Est GFR (CKD-EPI)AfAm 29 (>60 ml/min/1.73 sqM) Est GFR (CKD-EPI)NonAf 26 (>60 ml/min/1.73 sqM) BUN/Creatinine Ratio (12.00-20.00) Ratio Glucose 142 H (74-99) mg/dL Lactic Ac Sepsis Rflx Plasma Lactic Acid Eliseo 3.5 H* (0.7-2.0) mmol/L Calcium 8.5 (8.4-10.2) mg/dL Magnesium (1.5-2.4) mg/dL Total Bilirubin 0.3 (0.2-1.3) mg/dL AST 32 (14-36) U/L ALT 18 (4-34) U/L Alkaline Phosphatase 83 (38-126) U/L Troponin I (0.000-0.034) ng/mL C-Reactive Protein 13.4 H (<1.0) mg/dL Total Protein 5.1 L (6.3-8.2) g/dL Albumin 2.9 L (3.5-5.0) g/dL Globulin (1.6-3.3) g/dL Albumin/Globulin Ratio (1.60-3.17) g/dL Amylase 163 H (30-110) U/L Lipase 70 (23-300) U/L Urine Color Urine Appearance (Clear) Urine pH (5.0-8.0) Ur Specific [place] (1.001-1.035) Urine Protein (Negative) Urine Glucose (UA) (Negative) Urine Ketones (Negative) Urine Blood (Negative) Urine Nitrite (Negative) Urine Bilirubin (Negative) Urine Urobilinogen (<2.0) mg/dL Ur Leukocyte Esterase (Negative) Urine RBC (0-5) /hpf Urine WBC (0-5) /hpf Ur Squamous Epith Cells (0-4) /hpf Amorphous Sediment (None) /hpf Urine Bacteria (None) /hpf Urine Mucus (None) /hpf Stool Lactoferrin (NEGATIVE) Urine Opiates Screen (NotDetected) Ur Oxycodone Screen (NotDetected) Urine Methadone Screen (NotDetected) Ur Propoxyphene Screen (NotDetected) Ur Barbiturates Screen (NotDetected) U Tricyclic Antidepress (NotDetected) Ur Phencyclidine Scrn (NotDetected) Ur Amphetamines Screen (NotDetected) U Methamphetamines Scrn (NotDetected) U Benzodiazepines Scrn (NotDetected) Urine Cocaine Screen (NotDetected) U Marijuana (THC) Screen (NotDetected) Rheumatoid Factor (0-15) IU/mL KANE Screen (NEGATIVE) Double Strand DNA Ab (NEGATIVE) Anti-DNA Ab Interp IU/mL Tiss Transglutamin IgG U/mL Tiss Transglut IgG Intp (NEGATIVE) Tiss Transglutamin IgA AI Tis Transglut IgA Intrp (NEGATIVE) Anti-Gliadin IgG Deam U/mL Anti-Gliadin IgA Deam U/mL Gliadin (Deam) IgG Int (NEGATIVE) Gliadin (Deam) IgA Int (NEGATIVE) C. difficile (EIA) Intrp (Negative) Coronavirus (PCR) (Not Detectd) 10/09/20 10/09/20 10/09/20 Range/Units 15:52 16:36 19:00 WBC (3.8-10.6) k/uL RBC (3.80-5.40) m/uL Hgb (11.4-16.0) gm/dL Hct (34.0-46.0) % MCV (80.0-100.0) fL MCH (25.0-35.0) pg MCHC (31.0-37.0) g/dL RDW (11.5-15.5) % Plt Count (150-450) k/uL Plt Count Comment MPV Immature Gran % (Auto) % Absolute Nucleated RBC (0.00-0.00) X 10*3/uL Neutrophils % % Neutrophils % (Manual) % Band Neuts % (Manual) % Lymphocytes % % Lymphocytes % (Manual) % Monocytes % % Monocytes % (Manual) % Eosinophils % % Basophils % % Immature Gran # (0.00-0.04) X 10*3/uL Neutrophils # (1.80-7.70) X 10*3/uL Neutrophils # (Manual) (1.3-7.7) k/uL Lymphocytes # (0.90-5.00) X 10*3/uL Lymphocytes # (Manual) (1.0-4.8) k/uL Monocytes # (0.20-1.00) X 10*3/uL Monocytes # (Manual) (0-1.0) k/uL Eosinophils # (0.04-0.35) X 10*3/uL Basophils # (0.00-0.10) X 10*3/uL Nucleated RBCs (0-0) /100 WBC NRBC/100 WBC Diff (0.0-0.0) /100 WBCS Manual Slide Review RBC Morphology ESR (0-20) mm/hr Sodium (137-145) mmol/L Potassium (3.5-5.1) mmol/L Chloride (98-107) mmol/L Carbon Dioxide (22-30) mmol/L Anion Gap mmol/L BUN (7-17) mg/dL Creatinine (0.52-1.04) mg/dL Est GFR (CKD-EPI)AfAm (>60 ml/min/1.73 sqM) Est GFR (CKD-EPI)NonAf (>60 ml/min/1.73 sqM) BUN/Creatinine Ratio (12.00-20.00) Ratio Glucose (74-99) mg/dL Lactic Ac Sepsis Rflx Y Plasma Lactic Acid Eliseo 3.8 H* (0.7-2.0) mmol/L Calcium (8.4-10.2) mg/dL Magnesium (1.5-2.4) mg/dL Total Bilirubin (0.2-1.3) mg/dL AST (14-36) U/L ALT (4-34) U/L Alkaline Phosphatase (38-126) U/L Troponin I <0.012 (0.000-0.034) ng/mL C-Reactive Protein (<1.0) mg/dL Total Protein (6.3-8.2) g/dL Albumin (3.5-5.0) g/dL Globulin (1.6-3.3) g/dL Albumin/Globulin Ratio (1.60-3.17) g/dL Amylase (30-110) U/L Lipase (23-300) U/L Urine Color Urine Appearance (Clear) Urine pH (5.0-8.0) Ur Specific [place] (1.001-1.035) Urine Protein (Negative) Urine Glucose (UA) (Negative) Urine Ketones (Negative) Urine Blood (Negative) Urine Nitrite (Negative) Urine Bilirubin (Negative) Urine Urobilinogen (<2.0) mg/dL Ur Leukocyte Esterase (Negative) Urine RBC (0-5) /hpf Urine WBC (0-5) /hpf Ur Squamous Epith Cells (0-4) /hpf Amorphous Sediment (None) /hpf Urine Bacteria (None) /hpf Urine Mucus (None) /hpf Stool Lactoferrin (NEGATIVE) Urine Opiates Screen (NotDetected) Ur Oxycodone Screen (NotDetected) Urine Methadone Screen (NotDetected) Ur Propoxyphene Screen (NotDetected) Ur Barbiturates Screen (NotDetected) U Tricyclic Antidepress (NotDetected) Ur Phencyclidine Scrn (NotDetected) Ur Amphetamines Screen (NotDetected) U Methamphetamines Scrn (NotDetected) U Benzodiazepines Scrn (NotDetected) Urine Cocaine Screen (NotDetected) U Marijuana (THC) Screen (NotDetected) Rheumatoid Factor (0-15) IU/mL KANE Screen (NEGATIVE) Double Strand DNA Ab (NEGATIVE) Anti-DNA Ab Interp IU/mL Tiss Transglutamin IgG U/mL Tiss Transglut IgG Intp (NEGATIVE) Tiss Transglutamin IgA AI Tis Transglut IgA Intrp (NEGATIVE) Anti-Gliadin IgG Deam U/mL Anti-Gliadin IgA Deam U/mL Gliadin (Deam) IgG Int (NEGATIVE) Gliadin (Deam) IgA Int (NEGATIVE) C. difficile (EIA) Intrp (Negative) Coronavirus (PCR) (Not Detectd) 10/09/20 10/09/20 10/09/20 Range/Units 19:41 19:52 21:53 WBC (3.8-10.6) k/uL RBC (3.80-5.40) m/uL Hgb (11.4-16.0) gm/dL Hct (34.0-46.0) % MCV (80.0-100.0) fL MCH (25.0-35.0) pg MCHC (31.0-37.0) g/dL RDW (11.5-15.5) % Plt Count (150-450) k/uL Plt Count Comment MPV Immature Gran % (Auto) % Absolute Nucleated RBC (0.00-0.00) X 10*3/uL Neutrophils % % Neutrophils % (Manual) % Band Neuts % (Manual) % Lymphocytes % % Lymphocytes % (Manual) % Monocytes % % Monocytes % (Manual) % Eosinophils % % Basophils % % Immature Gran # (0.00-0.04) X 10*3/uL Neutrophils # (1.80-7.70) X 10*3/uL Neutrophils # (Manual) (1.3-7.7) k/uL Lymphocytes # (0.90-5.00) X 10*3/uL Lymphocytes # (Manual) (1.0-4.8) k/uL Monocytes # (0.20-1.00) X 10*3/uL Monocytes # (Manual) (0-1.0) k/uL Eosinophils # (0.04-0.35) X 10*3/uL Basophils # (0.00-0.10) X 10*3/uL Nucleated RBCs (0-0) /100 WBC NRBC/100 WBC Diff (0.0-0.0) /100 WBCS Manual Slide Review RBC Morphology ESR (0-20) mm/hr Sodium 139 (137-145) mmol/L Potassium 3.8 (3.5-5.1) mmol/L Chloride 109 H (98-107) mmol/L Carbon Dioxide 20 L (22-30) mmol/L Anion Gap 10 mmol/L BUN 31 H (7-17) mg/dL Creatinine 1.36 H (0.52-1.04) mg/dL Est GFR (CKD-EPI)AfAm 46 (>60 ml/min/1.73 sqM) Est GFR (CKD-EPI)NonAf 40 (>60 ml/min/1.73 sqM) BUN/Creatinine Ratio (12.00-20.00) Ratio Glucose 124 H (74-99) mg/dL Lactic Ac Sepsis Rflx Y Plasma Lactic Acid Eliseo (0.7-2.0) mmol/L Calcium 8.6 (8.4-10.2) mg/dL Magnesium (1.5-2.4) mg/dL Total Bilirubin 0.3 (0.2-1.3) mg/dL AST 33 (14-36) U/L ALT 17 (4-34) U/L Alkaline Phosphatase 80 (38-126) U/L Troponin I (0.000-0.034) ng/mL C-Reactive Protein (<1.0) mg/dL Total Protein 5.3 L (6.3-8.2) g/dL Albumin 3.0 L (3.5-5.0) g/dL Globulin (1.6-3.3) g/dL Albumin/Globulin Ratio (1.60-3.17) g/dL Amylase (30-110) U/L Lipase (23-300) U/L Urine Color Urine Appearance (Clear) Urine pH (5.0-8.0) Ur Specific [place] (1.001-1.035) Urine Protein (Negative) Urine Glucose (UA) (Negative) Urine Ketones (Negative) Urine Blood (Negative) Urine Nitrite (Negative) Urine Bilirubin (Negative) Urine Urobilinogen (<2.0) mg/dL Ur Leukocyte Esterase (Negative) Urine RBC (0-5) /hpf Urine WBC (0-5) /hpf Ur Squamous Epith Cells (0-4) /hpf Amorphous Sediment (None) /hpf Urine Bacteria (None) /hpf Urine Mucus (None) /hpf Stool Lactoferrin (NEGATIVE) Urine Opiates Screen (NotDetected) Ur Oxycodone Screen (NotDetected) Urine Methadone Screen (NotDetected) Ur Propoxyphene Screen (NotDetected) Ur Barbiturates Screen (NotDetected) U Tricyclic Antidepress (NotDetected) Ur Phencyclidine Scrn (NotDetected) Ur Amphetamines Screen (NotDetected) U Methamphetamines Scrn (NotDetected) U Benzodiazepines Scrn (NotDetected) Urine Cocaine Screen (NotDetected) U Marijuana (THC) Screen (NotDetected) Rheumatoid Factor (0-15) IU/mL KANE Screen (NEGATIVE) Double Strand DNA Ab (NEGATIVE) Anti-DNA Ab Interp IU/mL Tiss Transglutamin IgG U/mL Tiss Transglut IgG Intp (NEGATIVE) Tiss Transglutamin IgA AI Tis Transglut IgA Intrp (NEGATIVE) Anti-Gliadin IgG Deam U/mL Anti-Gliadin IgA Deam U/mL Gliadin (Deam) IgG Int (NEGATIVE) Gliadin (Deam) IgA Int (NEGATIVE) C. difficile (EIA) Intrp (Negative) Coronavirus (PCR) Not Detected (Not Detectd) 10/09/20 10/09/20 10/09/20 Range/Units 21:53 21:53 21:53 WBC (3.8-10.6) k/uL RBC (3.80-5.40) m/uL Hgb (11.4-16.0) gm/dL Hct (34.0-46.0) % MCV (80.0-100.0) fL MCH (25.0-35.0) pg MCHC (31.0-37.0) g/dL RDW (11.5-15.5) % Plt Count (150-450) k/uL Plt Count Comment MPV Immature Gran % (Auto) % Absolute Nucleated RBC (0.00-0.00) X 10*3/uL Neutrophils % % Neutrophils % (Manual) % Band Neuts % (Manual) % Lymphocytes % % Lymphocytes % (Manual) % Monocytes % % Monocytes % (Manual) % Eosinophils % % Basophils % % Immature Gran # (0.00-0.04) X 10*3/uL Neutrophils # (1.80-7.70) X 10*3/uL Neutrophils # (Manual) (1.3-7.7) k/uL Lymphocytes # (0.90-5.00) X 10*3/uL Lymphocytes # (Manual) (1.0-4.8) k/uL Monocytes # (0.20-1.00) X 10*3/uL Monocytes # (Manual) (0-1.0) k/uL Eosinophils # (0.04-0.35) X 10*3/uL Basophils # (0.00-0.10) X 10*3/uL Nucleated RBCs (0-0) /100 WBC NRBC/100 WBC Diff (0.0-0.0) /100 WBCS Manual Slide Review RBC Morphology ESR 8 (0-20) mm/hr Sodium (137-145) mmol/L Potassium (3.5-5.1) mmol/L Chloride (98-107) mmol/L Carbon Dioxide (22-30) mmol/L Anion Gap mmol/L BUN (7-17) mg/dL Creatinine (0.52-1.04) mg/dL Est GFR (CKD-EPI)AfAm (>60 ml/min/1.73 sqM) Est GFR (CKD-EPI)NonAf (>60 ml/min/1.73 sqM) BUN/Creatinine Ratio (12.00-20.00) Ratio Glucose (74-99) mg/dL Lactic Ac Sepsis Rflx Plasma Lactic Acid Eliseo (0.7-2.0) mmol/L Calcium (8.4-10.2) mg/dL Magnesium (1.5-2.4) mg/dL Total Bilirubin (0.2-1.3) mg/dL AST (14-36) U/L ALT (4-34) U/L Alkaline Phosphatase (38-126) U/L Troponin I (0.000-0.034) ng/mL C-Reactive Protein 23.7 H (<1.0) mg/dL Total Protein (6.3-8.2) g/dL Albumin (3.5-5.0) g/dL Globulin (1.6-3.3) g/dL Albumin/Globulin Ratio (1.60-3.17) g/dL Amylase (30-110) U/L Lipase (23-300) U/L Urine Color Urine Appearance (Clear) Urine pH (5.0-8.0) Ur Specific [place] (1.001-1.035) Urine Protein (Negative) Urine Glucose (UA) (Negative) Urine Ketones (Negative) Urine Blood (Negative) Urine Nitrite (Negative) Urine Bilirubin (Negative) Urine Urobilinogen (<2.0) mg/dL Ur Leukocyte Esterase (Negative) Urine RBC (0-5) /hpf Urine WBC (0-5) /hpf Ur Squamous Epith Cells (0-4) /hpf Amorphous Sediment (None) /hpf Urine Bacteria (None) /hpf Urine Mucus (None) /hpf Stool Lactoferrin (NEGATIVE) Urine Opiates Screen (NotDetected) Ur Oxycodone Screen (NotDetected) Urine Methadone Screen (NotDetected) Ur Propoxyphene Screen (NotDetected) Ur Barbiturates Screen (NotDetected) U Tricyclic Antidepress (NotDetected) Ur Phencyclidine Scrn (NotDetected) Ur Amphetamines Screen (NotDetected) U Methamphetamines Scrn (NotDetected) U Benzodiazepines Scrn (NotDetected) Urine Cocaine Screen (NotDetected) U Marijuana (THC) Screen (NotDetected) Rheumatoid Factor (0-15) IU/mL KANE Screen (NEGATIVE) Double Strand DNA Ab (NEGATIVE) Anti-DNA Ab Interp IU/mL Tiss Transglutamin IgG <0.8 U/mL Tiss Transglut IgG Intp NEGATIVE (NEGATIVE) Tiss Transglutamin IgA <0.5 AI Tis Transglut IgA Intrp NEGATIVE (NEGATIVE) Anti-Gliadin IgG Deam <0.4 U/mL Anti-Gliadin IgA Deam <0.2 U/mL Gliadin (Deam) IgG Int NEGATIVE (NEGATIVE) Gliadin (Deam) IgA Int NEGATIVE (NEGATIVE) C. difficile (EIA) Intrp (Negative) Coronavirus (PCR) (Not Detectd) 10/09/20 10/09/20 10/10/20 Range/Units 21:53 22:24 00:33 WBC (3.8-10.6) k/uL RBC (3.80-5.40) m/uL Hgb (11.4-16.0) gm/dL Hct (34.0-46.0) % MCV (80.0-100.0) fL MCH (25.0-35.0) pg MCHC (31.0-37.0) g/dL RDW (11.5-15.5) % Plt Count (150-450) k/uL Plt Count Comment MPV Immature Gran % (Auto) % Absolute Nucleated RBC (0.00-0.00) X 10*3/uL Neutrophils % % Neutrophils % (Manual) % Band Neuts % (Manual) % Lymphocytes % % Lymphocytes % (Manual) % Monocytes % % Monocytes % (Manual) % Eosinophils % % Basophils % % Immature Gran # (0.00-0.04) X 10*3/uL Neutrophils # (1.80-7.70) X 10*3/uL Neutrophils # (Manual) (1.3-7.7) k/uL Lymphocytes # (0.90-5.00) X 10*3/uL Lymphocytes # (Manual) (1.0-4.8) k/uL Monocytes # (0.20-1.00) X 10*3/uL Monocytes # (Manual) (0-1.0) k/uL Eosinophils # (0.04-0.35) X 10*3/uL Basophils # (0.00-0.10) X 10*3/uL Nucleated RBCs (0-0) /100 WBC NRBC/100 WBC Diff (0.0-0.0) /100 WBCS Manual Slide Review RBC Morphology ESR (0-20) mm/hr Sodium (137-145) mmol/L Potassium (3.5-5.1) mmol/L Chloride (98-107) mmol/L Carbon Dioxide (22-30) mmol/L Anion Gap mmol/L BUN (7-17) mg/dL Creatinine (0.52-1.04) mg/dL Est GFR (CKD-EPI)AfAm (>60 ml/min/1.73 sqM) Est GFR (CKD-EPI)NonAf (>60 ml/min/1.73 sqM) BUN/Creatinine Ratio (12.00-20.00) Ratio Glucose (74-99) mg/dL Lactic Ac Sepsis Rflx Y Plasma Lactic Acid Eliseo 3.0 H* 2.4 H* (0.7-2.0) mmol/L Calcium (8.4-10.2) mg/dL Magnesium (1.5-2.4) mg/dL Total Bilirubin (0.2-1.3) mg/dL AST (14-36) U/L ALT (4-34) U/L Alkaline Phosphatase (38-126) U/L Troponin I (0.000-0.034) ng/mL C-Reactive Protein (<1.0) mg/dL Total Protein (6.3-8.2) g/dL Albumin (3.5-5.0) g/dL Globulin (1.6-3.3) g/dL Albumin/Globulin Ratio (1.60-3.17) g/dL Amylase (30-110) U/L Lipase (23-300) U/L Urine Color Urine Appearance (Clear) Urine pH (5.0-8.0) Ur Specific [place] (1.001-1.035) Urine Protein (Negative) Urine Glucose (UA) (Negative) Urine Ketones (Negative) Urine Blood (Negative) Urine Nitrite (Negative) Urine Bilirubin (Negative) Urine Urobilinogen (<2.0) mg/dL Ur Leukocyte Esterase (Negative) Urine RBC (0-5) /hpf Urine WBC (0-5) /hpf Ur Squamous Epith Cells (0-4) /hpf Amorphous Sediment (None) /hpf Urine Bacteria (None) /hpf Urine Mucus (None) /hpf Stool Lactoferrin (NEGATIVE) Urine Opiates Screen (NotDetected) Ur Oxycodone Screen (NotDetected) Urine Methadone Screen (NotDetected) Ur Propoxyphene Screen (NotDetected) Ur Barbiturates Screen (NotDetected) U Tricyclic Antidepress (NotDetected) Ur Phencyclidine Scrn (NotDetected) Ur Amphetamines Screen (NotDetected) U Methamphetamines Scrn (NotDetected) U Benzodiazepines Scrn (NotDetected) Urine Cocaine Screen (NotDetected) U Marijuana (THC) Screen (NotDetected) Rheumatoid Factor (0-15) IU/mL KANE Screen (NEGATIVE) Double Strand DNA Ab (NEGATIVE) Anti-DNA Ab Interp IU/mL Tiss Transglutamin IgG U/mL Tiss Transglut IgG Intp (NEGATIVE) Tiss Transglutamin IgA AI Tis Transglut IgA Intrp (NEGATIVE) Anti-Gliadin IgG Deam U/mL Anti-Gliadin IgA Deam U/mL Gliadin (Deam) IgG Int (NEGATIVE) Gliadin (Deam) IgA Int (NEGATIVE) C. difficile (EIA) Intrp (Negative) Coronavirus (PCR) (Not Detectd) 10/10/20 10/10/20 10/10/20 Range/Units 00:34 00:34 03:09 WBC (3.8-10.6) k/uL RBC (3.80-5.40) m/uL Hgb (11.4-16.0) gm/dL Hct (34.0-46.0) % MCV (80.0-100.0) fL MCH (25.0-35.0) pg MCHC (31.0-37.0) g/dL RDW (11.5-15.5) % Plt Count (150-450) k/uL Plt Count Comment MPV Immature Gran % (Auto) % Absolute Nucleated RBC (0.00-0.00) X 10*3/uL Neutrophils % % Neutrophils % (Manual) % Band Neuts % (Manual) % Lymphocytes % % Lymphocytes % (Manual) % Monocytes % % Monocytes % (Manual) % Eosinophils % % Basophils % % Immature Gran # (0.00-0.04) X 10*3/uL Neutrophils # (1.80-7.70) X 10*3/uL Neutrophils # (Manual) (1.3-7.7) k/uL Lymphocytes # (0.90-5.00) X 10*3/uL Lymphocytes # (Manual) (1.0-4.8) k/uL Monocytes # (0.20-1.00) X 10*3/uL Monocytes # (Manual) (0-1.0) k/uL Eosinophils # (0.04-0.35) X 10*3/uL Basophils # (0.00-0.10) X 10*3/uL Nucleated RBCs (0-0) /100 WBC NRBC/100 WBC Diff (0.0-0.0) /100 WBCS Manual Slide Review RBC Morphology ESR (0-20) mm/hr Sodium (137-145) mmol/L Potassium (3.5-5.1) mmol/L Chloride (98-107) mmol/L Carbon Dioxide (22-30) mmol/L Anion Gap mmol/L BUN (7-17) mg/dL Creatinine (0.52-1.04) mg/dL Est GFR (CKD-EPI)AfAm (>60 ml/min/1.73 sqM) Est GFR (CKD-EPI)NonAf (>60 ml/min/1.73 sqM) BUN/Creatinine Ratio (12.00-20.00) Ratio Glucose (74-99) mg/dL Lactic Ac Sepsis Rflx Plasma Lactic Acid Eliseo (0.7-2.0) mmol/L Calcium (8.4-10.2) mg/dL Magnesium (1.5-2.4) mg/dL Total Bilirubin (0.2-1.3) mg/dL AST (14-36) U/L ALT (4-34) U/L Alkaline Phosphatase (38-126) U/L Troponin I (0.000-0.034) ng/mL C-Reactive Protein (<1.0) mg/dL Total Protein (6.3-8.2) g/dL Albumin (3.5-5.0) g/dL Globulin (1.6-3.3) g/dL Albumin/Globulin Ratio (1.60-3.17) g/dL Amylase (30-110) U/L Lipase (23-300) U/L Urine Color Yellow Urine Appearance Cloudy H (Clear) Urine pH 5.5 (5.0-8.0) Ur Specific [place] 1.019 (1.001-1.035) Urine Protein 1+ H (Negative) Urine Glucose (UA) Trace H (Negative) Urine Ketones Trace H (Negative) Urine Blood Small H (Negative) Urine Nitrite Negative (Negative) Urine Bilirubin Negative (Negative) Urine Urobilinogen <2.0 (<2.0) mg/dL Ur Leukocyte Esterase Trace H (Negative) Urine RBC 1 (0-5) /hpf Urine WBC 4 (0-5) /hpf Ur Squamous Epith Cells <1 (0-4) /hpf Amorphous Sediment Occasional H (None) /hpf Urine Bacteria Rare H (None) /hpf Urine Mucus Rare H (None) /hpf Stool Lactoferrin POSITIVE A (NEGATIVE) Urine Opiates Screen (NotDetected) Ur Oxycodone Screen (NotDetected) Urine Methadone Screen (NotDetected) Ur Propoxyphene Screen (NotDetected) Ur Barbiturates Screen (NotDetected) U Tricyclic Antidepress (NotDetected) Ur Phencyclidine Scrn (NotDetected) Ur Amphetamines Screen (NotDetected) U Methamphetamines Scrn (NotDetected) U Benzodiazepines Scrn (NotDetected) Urine Cocaine Screen (NotDetected) U Marijuana (THC) Screen (NotDetected) Rheumatoid Factor (0-15) IU/mL KANE Screen (NEGATIVE) Double Strand DNA Ab (NEGATIVE) Anti-DNA Ab Interp IU/mL Tiss Transglutamin IgG U/mL Tiss Transglut IgG Intp (NEGATIVE) Tiss Transglutamin IgA AI Tis Transglut IgA Intrp (NEGATIVE) Anti-Gliadin IgG Deam U/mL Anti-Gliadin IgA Deam U/mL Gliadin (Deam) IgG Int (NEGATIVE) Gliadin (Deam) IgA Int (NEGATIVE) C. difficile (EIA) Intrp Negative (Negative) Coronavirus (PCR) (Not Detectd) 10/10/20 10/10/20 10/10/20 Range/Units 03:09 05:07 05:07 WBC 6.73 (3.8-10.6) k/uL RBC 3.78 L (3.80-5.40) m/uL Hgb 11.8 L (11.4-16.0) gm/dL Hct 37.4 (34.0-46.0) % MCV 98.9 H (80.0-100.0) fL MCH 31.2 (25.0-35.0) pg MCHC 31.6 L (31.0-37.0) g/dL RDW 13.1 (11.5-15.5) % Plt Count 190 (150-450) k/uL Plt Count Comment Adequate MPV 10.7 Immature Gran % (Auto) 0.4 % Absolute Nucleated RBC 0 (0.00-0.00) X 10*3/uL Neutrophils % 72.5 % Neutrophils % (Manual) % Band Neuts % (Manual) % Lymphocytes % 12.6 % Lymphocytes % (Manual) % Monocytes % 14.4 % Monocytes % (Manual) % Eosinophils % 0 % Basophils % 0.1 % Immature Gran # 0.03 (0.00-0.04) X 10*3/uL Neutrophils # 4.87 (1.80-7.70) X 10*3/uL Neutrophils # (Manual) (1.3-7.7) k/uL Lymphocytes # 0.85 L (0.90-5.00) X 10*3/uL Lymphocytes # (Manual) (1.0-4.8) k/uL Monocytes # 0.97 (0.20-1.00) X 10*3/uL Monocytes # (Manual) (0-1.0) k/uL Eosinophils # 0 L (0.04-0.35) X 10*3/uL Basophils # 0.01 (0.00-0.10) X 10*3/uL Nucleated RBCs (0-0) /100 WBC NRBC/100 WBC Diff 0 (0.0-0.0) /100 WBCS Manual Slide Review RBC Morphology NORMAL ESR (0-20) mm/hr Sodium (137-145) mmol/L Potassium (3.5-5.1) mmol/L Chloride (98-107) mmol/L Carbon Dioxide (22-30) mmol/L Anion Gap mmol/L BUN (7-17) mg/dL Creatinine (0.52-1.04) mg/dL Est GFR (CKD-EPI)AfAm (>60 ml/min/1.73 sqM) Est GFR (CKD-EPI)NonAf (>60 ml/min/1.73 sqM) BUN/Creatinine Ratio (12.00-20.00) Ratio Glucose (74-99) mg/dL Lactic Ac Sepsis Rflx Plasma Lactic Acid Eliseo (0.7-2.0) mmol/L Calcium (8.4-10.2) mg/dL Magnesium 1.2 L (1.5-2.4) mg/dL Total Bilirubin (0.2-1.3) mg/dL AST (14-36) U/L ALT (4-34) U/L Alkaline Phosphatase (38-126) U/L Troponin I (0.000-0.034) ng/mL C-Reactive Protein (<1.0) mg/dL Total Protein (6.3-8.2) g/dL Albumin (3.5-5.0) g/dL Globulin (1.6-3.3) g/dL Albumin/Globulin Ratio (1.60-3.17) g/dL Amylase (30-110) U/L Lipase (23-300) U/L Urine Color Urine Appearance (Clear) Urine pH (5.0-8.0) Ur Specific [place] (1.001-1.035) Urine Protein (Negative) Urine Glucose (UA) (Negative) Urine Ketones (Negative) Urine Blood (Negative) Urine Nitrite (Negative) Urine Bilirubin (Negative) Urine Urobilinogen (<2.0) mg/dL Ur Leukocyte Esterase (Negative) Urine RBC (0-5) /hpf Urine WBC (0-5) /hpf Ur Squamous Epith Cells (0-4) /hpf Amorphous Sediment (None) /hpf Urine Bacteria (None) /hpf Urine Mucus (None) /hpf Stool Lactoferrin (NEGATIVE) Urine Opiates Screen Detected H (NotDetected) Ur Oxycodone Screen Detected H (NotDetected) Urine Methadone Screen Not Detected (NotDetected) Ur Propoxyphene Screen Not Detected (NotDetected) Ur Barbiturates Screen Not Detected (NotDetected) U Tricyclic Antidepress Not Detected (NotDetected) Ur Phencyclidine Scrn Not Detected (NotDetected) Ur Amphetamines Screen Not Detected (NotDetected) U Methamphetamines Scrn Not Detected (NotDetected) U Benzodiazepines Scrn Not Detected (NotDetected) Urine Cocaine Screen Not Detected (NotDetected) U Marijuana (THC) Screen Not Detected (NotDetected) Rheumatoid Factor (0-15) IU/mL KANE Screen (NEGATIVE) Double Strand DNA Ab (NEGATIVE) Anti-DNA Ab Interp IU/mL Tiss Transglutamin IgG U/mL Tiss Transglut IgG Intp (NEGATIVE) Tiss Transglutamin IgA AI Tis Transglut IgA Intrp (NEGATIVE) Anti-Gliadin IgG Deam U/mL Anti-Gliadin IgA Deam U/mL Gliadin (Deam) IgG Int (NEGATIVE) Gliadin (Deam) IgA Int (NEGATIVE) C. difficile (EIA) Intrp (Negative) Coronavirus (PCR) (Not Detectd) 10/10/20 10/10/20 10/10/20 Range/Units 05:07 05:07 05:07 WBC (3.8-10.6) k/uL RBC (3.80-5.40) m/uL Hgb (11.4-16.0) gm/dL Hct (34.0-46.0) % MCV (80.0-100.0) fL MCH (25.0-35.0) pg MCHC (31.0-37.0) g/dL RDW (11.5-15.5) % Plt Count (150-450) k/uL Plt Count Comment MPV Immature Gran % (Auto) % Absolute Nucleated RBC (0.00-0.00) X 10*3/uL Neutrophils % % Neutrophils % (Manual) % Band Neuts % (Manual) % Lymphocytes % % Lymphocytes % (Manual) % Monocytes % % Monocytes % (Manual) % Eosinophils % % Basophils % % Immature Gran # (0.00-0.04) X 10*3/uL Neutrophils # (1.80-7.70) X 10*3/uL Neutrophils # (Manual) (1.3-7.7) k/uL Lymphocytes # (0.90-5.00) X 10*3/uL Lymphocytes # (Manual) (1.0-4.8) k/uL Monocytes # (0.20-1.00) X 10*3/uL Monocytes # (Manual) (0-1.0) k/uL Eosinophils # (0.04-0.35) X 10*3/uL Basophils # (0.00-0.10) X 10*3/uL Nucleated RBCs (0-0) /100 WBC NRBC/100 WBC Diff (0.0-0.0) /100 WBCS Manual Slide Review RBC Morphology ESR (0-20) mm/hr Sodium 146 H (137-145) mmol/L Potassium 3.9 (3.5-5.1) mmol/L Chloride 115 H (98-107) mmol/L Carbon Dioxide 14.1 L (22-30) mmol/L Anion Gap 16.90 H mmol/L BUN 31.0 H (7-17) mg/dL Creatinine 1.0 (0.52-1.04) mg/dL Est GFR (CKD-EPI)AfAm 67.0 (>60 ml/min/1.73 sqM) Est GFR (CKD-EPI)NonAf 57.8 L (>60 ml/min/1.73 sqM) BUN/Creatinine Ratio 31.00 H (12.00-20.00) Ratio Glucose 124 H (74-99) mg/dL Lactic Ac Sepsis Rflx Plasma Lactic Acid Eliseo 1.7 (0.7-2.0) mmol/L Calcium 8.7 (8.4-10.2) mg/dL Magnesium (1.5-2.4) mg/dL Total Bilirubin 0.4 (0.2-1.3) mg/dL AST 28 (14-36) U/L ALT 16 (4-34) U/L Alkaline Phosphatase 82 (38-126) U/L Troponin I (0.000-0.034) ng/mL C-Reactive Protein (<1.0) mg/dL Total Protein 5.3 L (6.3-8.2) g/dL Albumin 3.60 L (3.5-5.0) g/dL Globulin 1.7 (1.6-3.3) g/dL Albumin/Globulin Ratio 2.12 (1.60-3.17) g/dL Amylase (30-110) U/L Lipase (23-300) U/L Urine Color Urine Appearance (Clear) Urine pH (5.0-8.0) Ur Specific [place] (1.001-1.035) Urine Protein (Negative) Urine Glucose (UA) (Negative) Urine Ketones (Negative) Urine Blood (Negative) Urine Nitrite (Negative) Urine Bilirubin (Negative) Urine Urobilinogen (<2.0) mg/dL Ur Leukocyte Esterase (Negative) Urine RBC (0-5) /hpf Urine WBC (0-5) /hpf Ur Squamous Epith Cells (0-4) /hpf Amorphous Sediment (None) /hpf Urine Bacteria (None) /hpf Urine Mucus (None) /hpf Stool Lactoferrin (NEGATIVE) Urine Opiates Screen (NotDetected) Ur Oxycodone Screen (NotDetected) Urine Methadone Screen (NotDetected) Ur Propoxyphene Screen (NotDetected) Ur Barbiturates Screen (NotDetected) U Tricyclic Antidepress (NotDetected) Ur Phencyclidine Scrn (NotDetected) Ur Amphetamines Screen (NotDetected) U Methamphetamines Scrn (NotDetected) U Benzodiazepines Scrn (NotDetected) Urine Cocaine Screen (NotDetected) U Marijuana (THC) Screen (NotDetected) Rheumatoid Factor 62 H (0-15) IU/mL KANE Screen (NEGATIVE) Double Strand DNA Ab (NEGATIVE) Anti-DNA Ab Interp IU/mL Tiss Transglutamin IgG U/mL Tiss Transglut IgG Intp (NEGATIVE) Tiss Transglutamin IgA AI Tis Transglut IgA Intrp (NEGATIVE) Anti-Gliadin IgG Deam U/mL Anti-Gliadin IgA Deam U/mL Gliadin (Deam) IgG Int (NEGATIVE) Gliadin (Deam) IgA Int (NEGATIVE) C. difficile (EIA) Intrp (Negative) Coronavirus (PCR) (Not Detectd) 10/10/20 10/11/20 10/11/20 Range/Units 05:07 05:32 05:32 WBC 6.28 (3.8-10.6) k/uL RBC 2.97 L (3.80-5.40) m/uL Hgb 9.3 L (11.4-16.0) gm/dL Hct 29.0 L (34.0-46.0) % MCV 97.6 H (80.0-100.0) fL MCH 31.3 (25.0-35.0) pg MCHC 32.1 (31.0-37.0) g/dL RDW 12.7 (11.5-15.5) % Plt Count 138 L (150-450) k/uL Plt Count Comment DECREASED A MPV 11.3 Immature Gran % (Auto) 0.8 % Absolute Nucleated RBC 0 (0.00-0.00) X 10*3/uL Neutrophils % 70.7 % Neutrophils % (Manual) % Band Neuts % (Manual) % Lymphocytes % 14.2 % Lymphocytes % (Manual) % Monocytes % 13.2 % Monocytes % (Manual) % Eosinophils % 0.6 % Basophils % 0.5 % Immature Gran # 0.05 H (0.00-0.04) X 10*3/uL Neutrophils # 4.44 (1.80-7.70) X 10*3/uL Neutrophils # (Manual) (1.3-7.7) k/uL Lymphocytes # 0.89 L (0.90-5.00) X 10*3/uL Lymphocytes # (Manual) (1.0-4.8) k/uL Monocytes # 0.83 (0.20-1.00) X 10*3/uL Monocytes # (Manual) (0-1.0) k/uL Eosinophils # 0.04 (0.04-0.35) X 10*3/uL Basophils # 0.03 (0.00-0.10) X 10*3/uL Nucleated RBCs (0-0) /100 WBC NRBC/100 WBC Diff 0 (0.0-0.0) /100 WBCS Manual Slide Review RBC Morphology NORMAL ESR (0-20) mm/hr Sodium 137 (137-145) mmol/L Potassium 3.4 L (3.5-5.1) mmol/L Chloride 109 H (98-107) mmol/L Carbon Dioxide 23 (22-30) mmol/L Anion Gap 5 mmol/L BUN 13 (7-17) mg/dL Creatinine 0.62 (0.52-1.04) mg/dL Est GFR (CKD-EPI)AfAm >90 (>60 ml/min/1.73 sqM) Est GFR (CKD-EPI)NonAf >90 (>60 ml/min/1.73 sqM) BUN/Creatinine Ratio (12.00-20.00) Ratio Glucose 92 (74-99) mg/dL Lactic Ac Sepsis Rflx Plasma Lactic Acid Eliseo (0.7-2.0) mmol/L Calcium 8.6 (8.4-10.2) mg/dL Magnesium 2.2 (1.5-2.4) mg/dL Total Bilirubin 0.5 (0.2-1.3) mg/dL AST 24 (14-36) U/L ALT 12 (4-34) U/L Alkaline Phosphatase 76 (38-126) U/L Troponin I (0.000-0.034) ng/mL C-Reactive Protein (<1.0) mg/dL Total Protein 4.6 L (6.3-8.2) g/dL Albumin 2.5 L (3.5-5.0) g/dL Globulin 2.1 (1.6-3.3) g/dL Albumin/Globulin Ratio 1.2 (1.60-3.17) g/dL Amylase (30-110) U/L Lipase (23-300) U/L Urine Color Urine Appearance (Clear) Urine pH (5.0-8.0) Ur Specific [place] (1.001-1.035) Urine Protein (Negative) Urine Glucose (UA) (Negative) Urine Ketones (Negative) Urine Blood (Negative) Urine Nitrite (Negative) Urine Bilirubin (Negative) Urine Urobilinogen (<2.0) mg/dL Ur Leukocyte Esterase (Negative) Urine RBC (0-5) /hpf Urine WBC (0-5) /hpf Ur Squamous Epith Cells (0-4) /hpf Amorphous Sediment (None) /hpf Urine Bacteria (None) /hpf Urine Mucus (None) /hpf Stool Lactoferrin (NEGATIVE) Urine Opiates Screen (NotDetected) Ur Oxycodone Screen (NotDetected) Urine Methadone Screen (NotDetected) Ur Propoxyphene Screen (NotDetected) Ur Barbiturates Screen (NotDetected) U Tricyclic Antidepress (NotDetected) Ur Phencyclidine Scrn (NotDetected) Ur Amphetamines Screen (NotDetected) U Methamphetamines Scrn (NotDetected) U Benzodiazepines Scrn (NotDetected) Urine Cocaine Screen (NotDetected) U Marijuana (THC) Screen (NotDetected) Rheumatoid Factor (0-15) IU/mL KANE Screen NEGATIVE (NEGATIVE) Double Strand DNA Ab NEGATIVE (NEGATIVE) Anti-DNA Ab Interp <1.0 IU/mL Tiss Transglutamin IgG U/mL Tiss Transglut IgG Intp (NEGATIVE) Tiss Transglutamin IgA AI Tis Transglut IgA Intrp (NEGATIVE) Anti-Gliadin IgG Deam U/mL Anti-Gliadin IgA Deam U/mL Gliadin (Deam) IgG Int (NEGATIVE) Gliadin (Deam) IgA Int (NEGATIVE) C. difficile (EIA) Intrp (Negative) Coronavirus (PCR) (Not Detectd) Disposition Clinical Impression: Acute diarrhea, Lactic acidosis, Acute kidney injury, Dehydration Disposition: ADMITTED IP TO THIS HOSP Condition: Fair Is patient prescribed a controlled substance at d/c from ED?: No
[2020-10-09 16:17] LABS: HCT 39.7 % (34.0-46.0); MCH 31.4 pg (25.0-35.0); MCHC 31.5 g/dL (31.0-37.0); MCV 99.6 fL (80.0-100.0); Mean Platelet Volume 7.9; Platelet Count 201 k/uL (150-450); RBC 3.99 m/uL (3.80-5.40); RDW 13.5 % (11.5-15.5); WBC 10.1 k/uL (3.8-10.6)
[2020-10-09 16:26] LABS: HGB 12.5 gm/dL (11.4-16.0)
[2020-10-09 16:34] LABS: Albumin 2.9 g/dL (3.5-5.0); Calcium 8.5 mg/dL (8.4-10.2); Total Bilirubin 0.3 mg/dL (0.2-1.3); Total Protein 5.1 g/dL (6.3-8.2)
[2020-10-09 16:35] LABS: Nucleated Red Blood Cells 0 /100 WBC (0-0)
[2020-10-09 16:37] LABS: Band Neutrophils % 8 %; Lymphocytes # (M) 0.61 k/uL (1.0-4.8); Monocytes # (M) 0.51 k/uL (0-1.0); Neutrophils % (M) 81 %; Total Cells Counted 100
[2020-10-09 16:51] LABS: C Reactive Protein 13.4 mg/dL (<1.0)
[2020-10-09] MEDS ORDERED: NALOXONE 0.4 MG/ML 1 ML VIAL IV PRN (17:52)
[2020-10-09] MEDS ORDERED: ACETAMINOPHEN TAB 325 MG TAB PO PRN (17:52)
[2020-10-09] MEDS ORDERED: Potassium Replacement Protocol 1 EACH MISC MISCELLANE PRN (19:18)
[2020-10-09] MEDS ORDERED: Magnesium Replacement Protocol 1 EACH MISC MISCELLANE PRN (19:18)
[2020-10-09] MEDS: SODIUM CHLORIDE 0.9% 1,000 ML IV SCH (20:33)
[2020-10-09] MEDS: GABAPENTIN 300 MG CAP PO SCH (20:38)
[2020-10-09] MEDS: FAMOTIDINE 20 MG TAB PO SCH (20:38)
[2020-10-09] MEDS: HEPARIN SODIUM,PORCINE/PF 5,000 UNIT/0.5 ML SYRINGE SQ SCH (20:38)
[2020-10-09 22:21] LABS: Calcium 8.6 mg/dL (8.4-10.2); Potassium 3.8 mmol/L (3.5-5.1); Total Bilirubin 0.3 mg/dL (0.2-1.3); Total Protein 5.3 g/dL (6.3-8.2)
--- NOTE | 2020-10-09 23:08 | HP ---
HISTORY AND PHYSICAL DATE OF SERVICE: 10/09/2020 CHIEF COMPLAINT: Diarrhea, weakness and dizziness. HISTORY OF PRESENT ILLNESS: This is a 70-year-old woman with a past medical history of multiple medical problems including history of colitis for long-term, history of fibromyalgia, GERD, GI bleed, hypertension, premature liver disease, history of rheumatoid arthritis, history of GI bleed, being followed by Dr. Tripathi in the outpatient setting, the patient was not feeling well over the past several days. The patient seemed to have diarrhea and blood in the stools. Patient came to [facility] and admitted for further evaluation and treatment. The patient had recent episodes of infectious colitis apparently treated with Cipro and Flagyl. The patient had apparent multiple scopes and biopsies. The biopsy report from endoscope in 2019 showed duodenal ulcer remarkable and gastric biopsy showed chronic gastritis and gastroesophageal junction biopsy showed chronic focally dense small lymphocytic inflammatory infiltrate in the lamina propria. There is no history of fever, rigors, chills at this time. PAST MEDICAL HISTORY: History of fibromyalgia, GERD, GI bleed, hypertension, hyperlipidemia, liver disease and DJD. MEDICATIONS: Prior home medications are reviewed and include: Vitamin D3, aspirin, Tylenol, Percocet, Effexor, CoEnzyme-Q10, Tumeric, multivitamins, Zestoretic, vitamin B12, Midrin and Lipitor. ALLERGIES: SULFA, TETRACYCLINE, LATEX, TIDE and LAUNDRY SOAP. FAMILY HISTORY: History of myocardial infarction in the family. SOCIAL HISTORY: Previous history of smoking. No current smoking or alcohol intake. REVIEW OF SYSTEMS: ENT: No diminished vision. No diminished hearing. CARDIOVASCULAR: No angina or palpitations. RESPIRATIONS: No cough. No hemoptysis. GI: As mentioned earlier. : No dysuria. NERVOUS SYSTEM: No numbness, weakness. ALLERGY/IMMUNOLOGY: No asthma, hayfever. MUSCULOSKELETAL: As mentioned earlier. HEMATOLOGY/ONCOLOGY: No history of anemia. ENDOCRINE: As mentioned earlier. CONSTITUTIONAL: As mentioned earlier. DERMATOLOGY: Negative. RHEUMATOLOGY: Negative. PSYCHIATRY: As mentioned earlier. PHYSICAL EXAMINATION: Alert and oriented x2. Pulse is 102. Blood pressure 108/82, respirations 16, temperature 98.2, pulse ox 98% on room air. HEENT: Conjunctivae normal. Oral mucosa moist. NECK is no jugular venous distention. No carotid bruit. No lymph node enlargement. CARDIOVASCULAR system: S1, S2 muffled. RESPIRATION: Breath sounds diminished in the bases. No rhonchi. No crackles. ABDOMEN: Soft, mild diffuse discomfort on palpation. No mass palpable. LEGS: No edema. No swelling. NERVOUS SYSTEM: Higher functions as mentioned. Moves all four limbs. No focal motor or sensory deficits. LYMPHATICS: No lymph nodes palpable in the neck, axillae or groin. SKIN: No ulcer, rash or bleeding. JOINTS: No active deforming arthropathy. LAB STUDIES: WBC 10.2, hemoglobin 12.5, sodium 140, potassium 4, creatinine is 1.98. Lactic acid 3.5. ASSESSMENT: 1. Abdominal pain, diarrhea with possible acute colitis with severe dehydration. 2. Acute renal failure from acute tubular necrosis and prerenal renal failure. 3. Elevated lactic acid post secondary dehydration. 4. Metabolic acidosis. 5. Rule out celiac disease. 6. Fibromyalgia. 7. Hypertension. 8. Hyperlipidemia. 9. History of chronic liver disease. 10.Rheumatoid arthritis. 11.History of syncope. 12.History of gastrointestinal bleed. 13.History of diverticulitis. 14.History of T1 spinal injury. 15.History of ORIF. 16.History of anxiety, depression, panic disorder, PTSD. 17.Remote history of nicotine dependence. 18.FULL CODE. RECOMMENDATION: This 70-year-old woman who presented with multiple complex medical issues, we will monitor the patient closely. Continue the current medications, management and symptomatic treatment. Otherwise at this time, keep the patient n.p.o., IV fluids. Gastroenterology consultation. Possible endoscopes. Guarded prognosis because of multiple complex medical issues. A copy of dictation being forwarded to Dr. Chelsey Tripathi, who is the primary physician. MMODL / CLOVISN: [id number] / MTDD
[2020-10-10] MEDS: SODIUM CHLORIDE 0.9% 1,000 ML IV SCH ×3 (02:37→22:09)
[2020-10-10] MEDS: ONDANSETRON 4 MG/2 ML VIAL IVP PRN ×3 (02:37→14:58)
[2020-10-10] MEDS: HYDROmorphone 0.5 MG/0.5 ML SYRINGE IVP PRN ×3 (02:38→15:01)
[2020-10-10 03:21] LABS: Amorphous Sediment,Urine Occasional /hpf; Appearance,Urine Cloudy (Clear); Bacteria,Urine Rare /hpf; Bilirubin,Urine Negative (Negative); Blood,Urine Small (Negative); Color,Urine Yellow; Glucose,Urine (UA) Trace (Negative); Ketones,Urine Trace (Negative); Leukocyte Esterase,Urine Trace (Negative); Mucus,Urine Rare /hpf; Nitrite,Urine Negative (Negative); PH, Urine 5.5 (5.0-8.0); Protein,Urine 1+ (Negative); RBC,Urine 1 /hpf (0-5); Specific Gravity,Urine 1.019 (1.001-1.035); Squamous Epithelial Cell,Urine <1 /hpf (0-4); Urobilinogen,Urine <2.0 mg/dL (<2.0); WBC,Urine 4 /hpf (0-5)
[2020-10-10 03:35] LABS: Amphetamine Screen,Urine Not Detected (NotDetected); Barbiturate Screen,Urine Not Detected (NotDetected); Benzodiazepines Screen,Urine Not Detected (NotDetected); Cocaine Screen,Urine Not Detected (NotDetected); Methadone Screen, Urine Not Detected (NotDetected); Opiate Screen,Urine Detected (NotDetected); Oxycodone Screen, Urine Detected (NotDetected); Phencyclidine Screen,Urine Not Detected (NotDetected); Tricyclic Antidepressant,Urine Not Detected (NotDetected); Urn Cannabinoid Scrn Not Detected (NotDetected)
[2020-10-10] MEDS: HEPARIN SODIUM,PORCINE/PF 5,000 UNIT/0.5 ML SYRINGE SQ SCH ×2 (08:35→22:09)
[2020-10-10] MEDS: GABAPENTIN 300 MG CAP PO SCH ×3 (08:35→22:09)
[2020-10-10] MEDS: PANTOPRAZOLE 40 MG TABLET PO SCH (08:35)
[2020-10-10] MEDS: MULTIVITAMINS, THERA 1 EACH TAB PO SCH (08:35)
[2020-10-10] MEDS: LISINOPRIL-HCTZ 20-12.5 MG 1 EACH TAB PO SCH (08:35)
[2020-10-10] MEDS: VENLAFAXINE HCL ER 75 MG CAP PO SCH (08:35)
[2020-10-10] MEDS: ASPIRIN 81 MG PO SCH (08:35)
[2020-10-10] MEDS: ATORVASTATIN 40 MG TAB PO SCH (08:36)
[2020-10-10] MEDS: CHOLECALCIFEROL 10 MCG (400 IU) TABLET PO SCH (08:36)
[2020-10-10] MEDS: FAMOTIDINE 20 MG TAB PO SCH ×2 (08:36→22:09)
[2020-10-10] MEDS: CYANOCOBALAMIN 500 MCG TAB PO SCH (08:36)
[2020-10-10] MEDS ORDERED: NON FORMULARY DRUG (Ubidecarenone [Co Q-10] 100 MG Capsule) PO SCH (09:00)
[2020-10-10] MEDS ORDERED: LOPERAMIDE 2 MG CAP PO STA (10:10)
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
[2020-10-10 11:12] LABS: Basophils # (A) 0.01 X 10*3/uL (0.00-0.10); Basophils % (A) 0.1 %; Eosinophils # (A) 0 X 10*3/uL (0.04-0.35); Eosinophils % (A) 0 %; HCT 37.4 % (37.2-46.3); HGB 11.8 g/dL (12.0-15.0); Lymphocytes # (A) 0.85 X 10*3/uL (0.90-5.00); Lymphocytes % (A) 12.6 %; MCH 31.2 pg (27.0-32.0); MCHC 31.6 g/dL (32.0-37.0); MCV 98.9 fL (80.0-97.0); Mean Platelet Volume 10.7 fL (9.5-12.2); Monocytes # (A) 0.97 X 10*3/uL (0.20-1.00); Monocytes % (A) 14.4 %; Neutrophils # (A) 4.87 X 10*3/uL (1.80-7.70); Neutrophils % (A) 72.5 %; Platelet Count 190 X 10*3/uL (140-440); RBC 3.78 X 10*6/uL (4.10-5.20); RDW 13.1 % (11.5-14.5); WBC 6.73 X 10*3/uL (4.50-10.00)
--- NOTE | 2020-10-10 11:40 | CT ---
EXAMINATION TYPE: CT abdomen pelvis wo con DATE OF EXAM: 10/10/2020 COMPARISON: CT 03/09/2019 HISTORY: diarrhea for [address] DLP: 328.4 mGycm Automated exposure control for dose reduction was used. TECHNIQUE: Helical acquisition of images from the lung bases through the pelvis. FINDINGS: Lack of intravenous contrast could compromise sensitivity. There is a hiatal hernia present , surgical clips again noted near the gastroesophageal junction as on prior LUNG BASES: Some minimal basilar atelectatic changes are present. AORTA: No significant abnormality is appreciataed. LIVER/GB: Patient is post cholecystectomy, no evident liver mass PANCREAS: No significant abnormality is seen. SPLEEN: No significant abnormality is seen. ADRENALS: No significant abnormality is seen. KIDNEYS: No significant abnormality is seen. REPRODUCTIVE ORGANS: Not seen. URINARY BLADDER: No significant abnormality is seen. BOWEL: No significant abnormality is seen. There is some high dense material within the stomach, duo denum possibly due to radiodense medication. Fluid-filled loops of small and large bowel noted. Suspe ct there is colonic wall thickening. FREE AIR: No Free Air is visible. ASCITES: None visible. PELVIC ADENOPATHY: None visualized. RETROPERITONEAL ADENOPATHY: No Retroperitoneal Adenopathy visible. OSSEOUS STRUCTURES: Postop changes are noted to the lower lumbar spine, status post fusion of the stewart mbosacral junction as on prior, there is a spinal curvature. IMPRESSION: CORRELATE FOR COLITIS, POSTINFECTIOUS, NONINFECTIOUS, NONCONTRAST EXAM LIMITS EVALUATION.
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
[2020-10-10] MEDS ORDERED: MAGNESIUM SULFATE 4 MEQ/ML 10ML VIAL IV STA (15:39)
[2020-10-10] MEDS: MAGNESIUM SULFATE-D5W PMX 1 GM in DEXTROSE/WATER 1 100ML.BAG IVPB SCH ×4 (16:18→22:06)
[2020-10-10] MEDS: CHOLESTYRAMINE (WITH SUGAR) 4 GM PACKET PO SCH (17:35)
--- NOTE | 2020-10-10 18:14 | PN ---
PROGRESS NOTE DATE OF SERVICE: 10/10/2020 This 70-year-old woman was admitted with significant diarrhea, had features of colitis clinically. The patient is seen by gastroenterology. Nephrology has also seen the patient. Patient also had some malar rash. CT scan of the abdomen and pelvis showed possible colitis with colonic wall thickening. No chest pain. No palpitations. No fever. PAST MEDICAL HISTORY: Reviewed. REVIEW OF SYSTEMS: CARDIOVASCULAR: No angina or palpitations. RESPIRATORY: As mentioned earlier. GI: As mentioned earlier. : No dysuria. NERVOUS SYSTEM: No numbness, weakness. CURRENT MEDICATIONS: Reviewed and include: Tylenol, aspirin, Lipitor, vitamin D3, Pepcid, Neurontin, Zestoretic. Doses reviewed. PHYSICAL EXAMINATION: Alert and oriented x3. Pulse 89. Blood pressure 102/60, respiration 18, temp 97.8, pulse ox 97% on room air. HEENT: Conjunctivae normal. NECK: No JVD. CARDIOVASCULAR: S1, S2 muffled. RESPIRATORY SYSTEM: Breath sounds diminished at the bases. A few scattered rhonchi. ABDOMEN: Soft, mild diffuse tenderness present. No guarding. No rigidity. No mass palpable. LEGS are no edema. No swelling. NERVOUS SYSTEM: No focal deficits. LAB STUDIES: WBC 6.3, hemoglobin 11.8 and sodium 139, potassium 3.8. Creatinine is 1.36. Lactic acid is 2.4 and magnesium 1.2. UA noted. Stool lactoferrin is positive. C difficile negative. ASSESSMENT: 1. Abdominal pain with diarrhea with possible acute colitis with severe dehydration. 2. Acute renal failure, acute tubular necrosis and prerenal factors. 3. Elevated lactic acidosis secondary to dehydration. 4. Metabolic acidosis, present on admission. 5. Rule out celiac disease. 6. Fibromyalgia. 7. Hypertension. 8. Hyperlipidemia. 9. History of chronic liver disease. 10.Rheumatoid arthritis. 11.History of syncope. 12.Malar rash. 13.History of gastrointestinal bleed. 14.History of diverticulitis. 15.History of T1 spinal injury. 16.History of ORIF. 17.History of anxiety, depression, panic disorder, PTSD. 18.Remote history of nicotine dependence. 19.FULL CODE. RECOMMENDATIONS AND DISCUSSION: Recommend to continue current medications, symptomatic treatment. Otherwise, closely follow with Gastroenterology, possible endoscopes including EGD with biopsy. Otherwise, nephrology consultation team appreciated. I would also recommend workup for any rheumatology condition including KANE and D. dimer, and also celiac disease panel has been sent. Further recommendations to follow. MMODL / IJN: [id number] /
[2020-10-10] MEDS: LOPERAMIDE 2 MG CAP PO PRN (22:09)
[2020-10-11 00:11] LABS: Albumin 3.6 g/dL (3.80-4.90); Albumin/Globulin Ratio 2.12 (1.60-3.17); Anion Gap 16.9 mmol/L (4.00-12.00); Calcium 8.7 mg/dL (8.7-10.3); Carbon Dioxide 14.1 mmol/L (21.6-31.8); Globulin 1.7 g/dL (1.6-3.3); Non-African American GFR(CKD) 57.8 (60.0-200.0); Potassium 3.9 mmol/L (3.5-5.5); Total Bilirubin 0.4 mg/dL (0.3-1.2); Total Protein 5.3 g/dL (6.2-8.2)
[2020-10-11] MEDS: SODIUM CHLORIDE 0.9% 1,000 ML IV SCH ×3 (04:23→20:50)
[2020-10-11] MEDS: HYDROmorphone 0.5 MG/0.5 ML SYRINGE IVP PRN ×2 (07:41→12:26)
[2020-10-11] MEDS: ONDANSETRON 4 MG/2 ML VIAL IVP PRN (07:41)
[2020-10-11] MEDS: LISINOPRIL-HCTZ 20-12.5 MG 1 EACH TAB PO SCH (08:57)
[2020-10-11] MEDS: CYANOCOBALAMIN 500 MCG TAB PO SCH (08:57)
[2020-10-11] MEDS: ASPIRIN 81 MG PO SCH (08:57)
[2020-10-11] MEDS: ATORVASTATIN 40 MG TAB PO SCH (08:57)
[2020-10-11] MEDS: CHOLESTYRAMINE (WITH SUGAR) 4 GM PACKET PO SCH ×2 (08:57→17:19)
[2020-10-11] MEDS: HEPARIN SODIUM,PORCINE/PF 5,000 UNIT/0.5 ML SYRINGE SQ SCH ×2 (08:57→20:46)
[2020-10-11] MEDS: PANTOPRAZOLE 40 MG TABLET PO SCH (08:57)
[2020-10-11] MEDS: VENLAFAXINE HCL ER 75 MG CAP PO SCH (08:57)
[2020-10-11] MEDS: MULTIVITAMINS, THERA 1 EACH TAB PO SCH (08:57)
[2020-10-11] MEDS: FAMOTIDINE 20 MG TAB PO SCH ×2 (08:57→20:46)
[2020-10-11] MEDS: GABAPENTIN 300 MG CAP PO SCH ×3 (08:57→20:46)
[2020-10-11] MEDS ORDERED: DEXTROSE 5% IN WATER 1,000 ML with SODIUM BICARB (1 MEQ/ML) 150 ML IV SCH (09:45)
--- NOTE | 2020-10-11 09:50 | P.PN ---
Subjective Patient is seen in follow for acute kidney injury. Renal function better. Still having loose bowel movements but improved. Oral intake poor. Good urine output. Vital signs are stable. General: The patient appeared well nourished and normally developed. HEENT: Head exam is unremarkable. LUNGS: Breath sounds decreased. HEART: Rate and Rhythm are regular. ABDOMEN: Soft, no distention. EXTREMITITES: No edema. Objective - Vital Signs Vital signs: Vital Signs Temp 98.1 F 10/11/20 07:09 Pulse 73 10/11/20 07:09 Resp 18 10/11/20 07:09 BP 100/63 10/11/20 07:09 Pulse Ox 97 10/11/20 07:09 Intake & Output 10/10/20 10/11/20 10/11/20 18:59 06:59 18:59 Other: Voiding Method Diaper Incontinent # Voids 2 3 # Bowel Movements 3 - Labs CBC & Chem 7: 10/10/20 05:07 10/10/20 05:07 Labs: Abnormal Lab Results - Last 24 Hours (Table) 10/10/20 10/10/20 10/10/20 Range/Units 00:34 05:07 05:07 RBC 3.78 L (4.10-5.20) X 10*6/uL Hgb 11.8 L (12.0-15.0) g/dL MCV 98.9 H (80.0-97.0) fL MCHC 31.6 L (32.0-37.0) g/dL Lymphocytes # 0.85 L (0.90-5.00) X 10*3/uL Eosinophils # 0 L (0.04-0.35) X 10*3/uL Sodium (135-145) mmol/L Chloride (96-109) mmol/L Carbon Dioxide (21.6-31.8) mmol/L Anion Gap (4.00-12.00) mmol/L BUN (9.0-27.0) mg/dL Est GFR (CKD-EPI)NonAf (60.0-200.0) BUN/Creatinine Ratio (12.00-20.00) Ratio Glucose (70-110) mg/dL Magnesium 1.2 L (1.5-2.4) mg/dL Total Protein (6.2-8.2) g/dL Albumin (3.80-4.90) g/dL Stool Lactoferrin POSITIVE A (NEGATIVE) Rheumatoid Factor (0-15) IU/mL 10/10/20 10/10/20 Range/Units 05:07 05:07 RBC (4.10-5.20) X 10*6/uL Hgb (12.0-15.0) g/dL MCV (80.0-97.0) fL MCHC (32.0-37.0) g/dL Lymphocytes # (0.90-5.00) X 10*3/uL Eosinophils # (0.04-0.35) X 10*3/uL Sodium 146 H (135-145) mmol/L Chloride 115 H (96-109) mmol/L Carbon Dioxide 14.1 L (21.6-31.8) mmol/L Anion Gap 16.90 H (4.00-12.00) mmol/L BUN 31.0 H (9.0-27.0) mg/dL Est GFR (CKD-EPI)NonAf 57.8 L (60.0-200.0) BUN/Creatinine Ratio 31.00 H (12.00-20.00) Ratio Glucose 124 H (70-110) mg/dL Magnesium (1.5-2.4) mg/dL Total Protein 5.3 L (6.2-8.2) g/dL Albumin 3.60 L (3.80-4.90) g/dL Stool Lactoferrin (NEGATIVE) Rheumatoid Factor 62 H (0-15) IU/mL Microbiology - Last 24 Hours (Table) 10/10/20 00:34 Stool Culture - Preliminary Stool Assessment and Plan Plan: Assessment: 1. Acute kidney injury mostly prerenal secondary to hypovolemia and diuretics. Creatinine 1.0 today. 2. Colitis. Diarrhea better. C. diff negative. 3. Hypomagnesemia from poor intake and GI losses. Status post replacement. 4. Metabolic acidosis secondary to acute kidney injury and IV fluids. 5. Mild hypernatremia from lack of oral water intake. 6. Benign hypertension. Blood pressure in the lower side. Plan: I will change IV fluids to bicarbonate drip to be run at 125 mL an hour. Stop Zestoretic. Avoid nephrotoxins. Follow-up morning labs
[2020-10-11 10:20] LABS: Potassium 3.4 mmol/L (3.5-5.1)
[2020-10-11 10:21] LABS: ALT 12 U/L (4-34); AST 24 U/L (14-36); African American GFR (CKD) >90 (>60 ml/min/1.73 sqM); Albumin 2.5 g/dL (3.5-5.0); Albumin/Globulin Ratio 1.2; Alkaline Phosphatase 76 U/L (38-126); Anion Gap 5 mmol/L; Blood Urea Nitrogen 13 mg/dL (7-17); Calcium 8.6 mg/dL (8.4-10.2); Carbon Dioxide 23 mmol/L (22-30); Chloride 109 mmol/L (98-107); Globulin 2.1 g/dL; Glucose 92 mg/dL (74-99); Magnesium 2.2 mg/dL (1.6-2.3); Non-African American GFR(CKD) >90 (>60 ml/min/1.73 sqM); Sodium 137 mmol/L (137-145); Total Bilirubin 0.5 mg/dL (0.2-1.3); Total Protein 4.6 g/dL (6.3-8.2)
[2020-10-11 11:30] LABS: Basophils # (A) 0.03 X 10*3/uL (0.00-0.10); Basophils % (A) 0.5 %; Eosinophils # (A) 0.04 X 10*3/uL (0.04-0.35); Eosinophils % (A) 0.6 %; HGB 9.3 g/dL (12.0-15.0); Lymphocytes # (A) 0.89 X 10*3/uL (0.90-5.00); Lymphocytes % (A) 14.2 %; MCH 31.3 pg (27.0-32.0); MCHC 32.1 g/dL (32.0-37.0); MCV 97.6 fL (80.0-97.0); Mean Platelet Volume 11.3 fL (9.5-12.2); Monocytes # (A) 0.83 X 10*3/uL (0.20-1.00); Monocytes % (A) 13.2 %; Neutrophils # (A) 4.44 X 10*3/uL (1.80-7.70); Neutrophils % (A) 70.7 %; Platelet Count 138 X 10*3/uL (140-440); RBC 2.97 X 10*6/uL (4.10-5.20); RDW 12.7 % (11.5-14.5); WBC 6.28 X 10*3/uL (4.50-10.00)
--- NOTE | 2020-10-11 11:44 | P.PN ---
Subjective Progress Note Date: 10/11/20 Principal diagnosis: Diarrhea The urinary pleasant 70-year-old female presented to the emergency department with complaints of 3-4 days of frequent loose bowel movements. She had similar episode and evaluation in 2019. She was reporting at least 6-7 watery bowel movements daily associated with urgency. She states she did have some blood in her rectum and associated with her symptoms.she states she gets episodes approximately once a month at the similar symptoms which last about 3-4 days. She states this one however is worse and had dark blood with her diarrhea. CT of the abdomen was performed yesterday which states correlate for colitis, post infectious, noninfectious, noncontrast exam limits evaluation. The bowel had fluid-filled loops of small and large bowel noted. Suspect there is colonic wall thickening. A she states she has left lower quadrant tenderness, continues with diarrhea however improved, no vomiting but has mild nausea. Objective - Vital Signs Vital signs: Vital Signs Temp 98.1 F 10/11/20 07:09 Pulse 73 10/11/20 07:09 Resp 18 10/11/20 07:09 BP 100/63 10/11/20 07:09 Pulse Ox 97 10/11/20 07:09 Intake & Output 10/10/20 10/11/20 10/11/20 18:59 06:59 18:59 Other: Voiding Method Diaper Incontinent # Voids 2 3 # Bowel Movements 3 - Exam General appearance: The patient is alert, oriented, appears in no acute distress. HET: Head is normocephalic and atraumatic. Conjunctiva pink. Sclera anicteric. Neck: Supple without lymphadenopathy. Abdomen: Soft, left lower quadrant tenderness,, nondistended with bowel sounds. No guarding or rigidity. Extremities: Normal skin color and turgor. No pedal edema Skin: No rashes, no jaundice Neurological: No focal deficits. Alert and oriented 3. - Labs CBC & Chem 7: 10/11/20 05:32 10/11/20 05:32 Labs: Abnormal Lab Results - Last 24 Hours (Table) 10/10/20 10/10/20 10/10/20 Range/Units 00:34 05:07 05:07 RBC 3.78 L (4.10-5.20) X 10*6/uL Hgb 11.8 L (12.0-15.0) g/dL MCV 98.9 H (80.0-97.0) fL MCHC 31.6 L (32.0-37.0) g/dL Lymphocytes # 0.85 L (0.90-5.00) X 10*3/uL Eosinophils # 0 L (0.04-0.35) X 10*3/uL Sodium (135-145) mmol/L Chloride (96-109) mmol/L Carbon Dioxide (21.6-31.8) mmol/L Anion Gap (4.00-12.00) mmol/L BUN (9.0-27.0) mg/dL Est GFR (CKD-EPI)NonAf (60.0-200.0) BUN/Creatinine Ratio (12.00-20.00) Ratio Glucose (70-110) mg/dL Magnesium 1.2 L (1.5-2.4) mg/dL Total Protein (6.2-8.2) g/dL Albumin (3.80-4.90) g/dL Stool Lactoferrin POSITIVE A (NEGATIVE) Rheumatoid Factor (0-15) IU/mL 10/10/20 10/10/20 Range/Units 05:07 05:07 RBC (4.10-5.20) X 10*6/uL Hgb (12.0-15.0) g/dL MCV (80.0-97.0) fL MCHC (32.0-37.0) g/dL Lymphocytes # (0.90-5.00) X 10*3/uL Eosinophils # (0.04-0.35) X 10*3/uL Sodium 146 H (135-145) mmol/L Chloride 115 H (96-109) mmol/L Carbon Dioxide 14.1 L (21.6-31.8) mmol/L Anion Gap 16.90 H (4.00-12.00) mmol/L BUN 31.0 H (9.0-27.0) mg/dL Est GFR (CKD-EPI)NonAf 57.8 L (60.0-200.0) BUN/Creatinine Ratio 31.00 H (12.00-20.00) Ratio Glucose 124 H (70-110) mg/dL Magnesium (1.5-2.4) mg/dL Total Protein 5.3 L (6.2-8.2) g/dL Albumin 3.60 L (3.80-4.90) g/dL Stool Lactoferrin (NEGATIVE) Rheumatoid Factor 62 H (0-15) IU/mL Microbiology - Last 24 Hours (Table) 10/10/20 00:34 Stool Culture - Preliminary Stool Assessment and Plan (1) Acute diarrhea Narrative/Plan: 70-year-old female presenting to the hospital with complaints of diarrhea, abdominal pain and blood per rectum. She reports 6-7 loose watery bowel movements daily with associated urgency. She denies any sick contacts, antibiotics or new medications or unusual foods. She previously had a similar episode in 2019 at which time computed tomography scan showed descending colon colitis she was treated for suspected ischemic versus infectious colitis and subsequently had EGD and colonoscopy in 05/2019 with findings of a well-healed colon With polypectomy, diverticulosis and gastritis noted on EGD. Unclear etiology, may be secondary to infectious versus ischemic colitis, no evidence of inflammatory bowel disease on prior colonoscopy in 2019. Testing for Clostridium difficile has been negative. CT of the abdomen reviewed, with an impression stating correlate for colitis, post infectious, noninfectious, noncontrast exam limits evaluation. No plans for endoscopic evaluation at this time, patient recommended for further workup and outpatient basis. Continue current management Current Visit: No Status: Acute Code(s): R19.7 - DIARRHEA, UNSPECIFIED SNOMED Code(s): 875989515 (2) Abdominal pain Current Visit: Yes Status: Acute Code(s): R10.9 - UNSPECIFIED ABDOMINAL PAIN SNOMED Code(s): 55030268 Plan: 1. Continue Supportive care 2. Full liquid diet 3. Testing for Clostridium difficile negative 4. Other stool studies pending 5. CT of the abdomen and pelvis ordered, reviewed 6. Cholestyramine twice daily ordered 7. Imodium 1 time dose ordered, as well as ordered placed for as needed for breakthrough diarrhea 8. Celiac testing ordered per primary team, pending 9. EGD and colonoscopy report from 05/2019 after patient's prior hospitalization for similar complaints reviewed 10. No plans for endoscopic evaluation at this time, patient recommended for outpatient follow-up Thank you for this consultation, we will continue to follow Dr. Judi Tony I agree with the dictator's note, documented as a scribe by Dayan Fuller.
[2020-10-11 11:48] LABS: Gliadin AB IgA, Deaminated NEGATIVE (NEGATIVE); Gliadin AB IgA, Unit <0.2 U/mL; Gliadin AB IgG, Deaminated NEGATIVE (NEGATIVE)
[2020-10-11 12:50] LABS: Anti-DNA, DS unit <1.0 IU/mL; DNA Double-Stranded NEGATIVE (NEGATIVE)
[2020-10-11] MEDS ORDERED: POTASSIUM CHLORIDE ER 20 MEQ TAB.ER PO STA (14:17)
[2020-10-11] MEDS: LOPERAMIDE 2 MG CAP PO PRN ×2 (15:30→21:38)
--- NOTE | 2020-10-11 16:49 | PN ---
PROGRESS NOTE DATE OF SERVICE: 10/11/2020 This 70-year-old woman with a past medical history of multiple medical problems had significant diarrhea. The patient is followed by Dr. Easton Tripathi in the outpatient setting. The patient has continued to have diarrhea. Gastroenterology is following the patient. Previous endoscopies showed some minimal abnormalities. Past medical history reviewed. REVIEW OF SYSTEMS: CARDIOVASCULAR SYSTEM: No angina, palpitations. RESPIRATORY SYSTEM: As mentioned earlier. GI: As mentioned earlier. : No dysuria or retention. NERVOUS SYSTEM: No numbness, weakness. CURRENT MEDICATIONS: Reviewed. They include Tylenol, aspirin, Lipitor, vitamin D3, Pepcid, Neurontin. Doses are reviewed. PHYSICAL EXAMINATION: Patient is alert and oriented x3. Pulse 77, blood pressure 87/49, respiration 20, temperature 97.6, pulse ox 100% on room air. HEENT: Conjunctivae normal. NECK: No jugular venous distention. CARDIOVASCULAR SYSTEM: S1, S2 muffled. RESPIRATORY SYSTEM: Breath sounds diminished at the bases. No rhonchi. No crackles. ABDOMEN: Soft. Mild diffuse tenderness. LEGS: No edema. No swelling. NERVOUS SYSTEM: No focal deficit. LABS: WBC 6.2, hemoglobin 9.3. Sodium 137, potassium 3.4. Albumin is 2.5. UA noted. Stool OB is positive. ASSESSMENT: 1. Abdominal pain with diarrhea, possible acute colitis with severe dehydration. 2. Acute renal failure, possible acute tubular necrosis with prerenal factors, present on admission. 3. Elevated lactic acid secondary to dehydration. 4. Metabolic acidosis, acute, present on admission. 5. Rule out celiac disease. 6. Fibromyalgia. 7. Hypertension. 8. Hyperlipidemia. 9. History of chronic liver disease. 10.Rheumatoid arthritis. 11.History of syncope. 12.History of malar rash. 13.History of gastrointestinal bleed. 14.History of diverticulitis. 15.History of T1 spinal injury. 16.History of open reduction internal fixation. 17.History of anxiety, depression, panic disorder, post-traumatic stress disorder. 18.Remote history of nicotine dependence. 19.FULL CODE. RECOMMENDATIONS AND DISCUSSION: I recommend to continue current medications, continue with the monitoring, symptomatic treatment. Otherwise, closely follow with Dr. Tony. Rheumatoid factor is elevated at 262. KANE and anti negative. Possible endoscopes. We will continue to monitor. Guarded prognosis. Further recommendations to follow. COVID-19 is negative. MMODL / IJN: [id number] / MTDD
[2020-10-11] MEDS: oxyCODONE-APAP 5-325MG 1 EACH TAB PO PRN (20:55)
[2020-10-12] MEDS: oxyCODONE-APAP 5-325MG 1 EACH TAB PO PRN ×2 (05:56→20:11)
[2020-10-12] MEDS: SODIUM CHLORIDE 0.9% 1,000 ML IV SCH ×2 (05:59→20:11)
[2020-10-12] MEDS: CHOLECALCIFEROL 10 MCG (400 IU) TABLET PO SCH (08:10)
[2020-10-12] MEDS: FAMOTIDINE 20 MG TAB PO SCH ×2 (08:10→20:11)
[2020-10-12] MEDS: HEPARIN SODIUM,PORCINE/PF 5,000 UNIT/0.5 ML SYRINGE SQ SCH ×2 (08:10→20:14)
[2020-10-12] MEDS: ATORVASTATIN 40 MG TAB PO SCH (08:10)
[2020-10-12] MEDS: CYANOCOBALAMIN 500 MCG TAB PO SCH (08:10)
[2020-10-12] MEDS: PANTOPRAZOLE 40 MG TABLET PO SCH (08:10)
[2020-10-12] MEDS: CHOLESTYRAMINE (WITH SUGAR) 4 GM PACKET PO SCH ×2 (08:10→18:03)
[2020-10-12] MEDS: MULTIVITAMINS, THERA 1 EACH TAB PO SCH (08:10)
[2020-10-12] MEDS: GABAPENTIN 300 MG CAP PO SCH ×3 (08:10→20:11)
[2020-10-12] MEDS: ASPIRIN 81 MG PO SCH (08:10)
[2020-10-12] MEDS: VENLAFAXINE HCL ER 75 MG CAP PO SCH (08:10)
[2020-10-12] MEDS: LOPERAMIDE 2 MG CAP PO PRN (08:17)
--- NOTE | 2020-10-12 10:21 | P.PN ---
Subjective Patient is seen in follow for acute kidney injury. Renal function back to baseline. Continues to have loose bowel movements. Oral intake is gradually improving. Good urine output. Blood pressure stable. Vital signs are stable. General: The patient appeared well nourished and normally developed. HEENT: Head exam is unremarkable. LUNGS: Breath sounds decreased. HEART: Rate and Rhythm are regular. ABDOMEN: Soft, no distention. EXTREMITITES: No edema. Objective - Vital Signs Vital signs: Vital Signs Temp 97.9 F 10/12/20 07:00 Pulse 72 10/12/20 07:00 Resp 16 10/12/20 07:00 BP 114/70 10/12/20 07:00 Pulse Ox 95 10/12/20 07:00 Intake & Output 10/11/20 10/12/20 10/12/20 18:59 06:59 18:59 Output Total 2 Balance -2 Output: Urine/Stool Mix 2 Other: Voiding Method Diaper Diaper Diaper Incontinent Incontinent Incontinent # Voids 1 1 # Bowel Movements 1 1 - Labs CBC & Chem 7: 10/11/20 05:32 10/11/20 05:32 Labs: Abnormal Lab Results - Last 24 Hours (Table) 10/11/20 10/11/20 Range/Units 05:32 05:32 RBC 2.97 L (4.10-5.20) X 10*6/uL Hgb 9.3 L (12.0-15.0) g/dL Hct 29.0 L (37.2-46.3) % MCV 97.6 H (80.0-97.0) fL Plt Count 138 L (140-440) X 10*3/uL Plt Count Comment DECREASED A Immature Gran # 0.05 H (0.00-0.04) X 10*3/uL Lymphocytes # 0.89 L (0.90-5.00) X 10*3/uL Potassium 3.4 L (3.5-5.1) mmol/L Chloride 109 H (98-107) mmol/L Total Protein 4.6 L (6.3-8.2) g/dL Albumin 2.5 L (3.5-5.0) g/dL Microbiology - Last 24 Hours (Table) 10/10/20 00:34 Stool Culture - Final Stool 10/09/20 15:52 Blood Culture - Preliminary Blood No Growth after 24 hours Assessment and Plan Plan: Assessment: 1. Acute kidney injury mostly prerenal secondary to hypovolemia and diuretics. Creatinine 0.62 as of yesterday. 2. Colitis. Diarrhea better. C. diff negative. 3. Hypomagnesemia from poor intake and GI losses. Status post replacement. Improved. 4. Metabolic acidosis secondary to acute kidney injury and IV fluids. Improved. 5. Mild hypernatremia from lack of oral water intake. Improved. 6. Benign hypertension. Stable. Plan: Maintain normal saline. I would decrease the rate to 60 mL an hour. Continue to hold Zestoretic. Avoid nephrotoxins. Follow-up morning labs
[2020-10-12 11:17] LABS: African American GFR (CKD) 108.5 (60.0-200.0); Albumin 2.9 g/dL (3.80-4.90); Albumin/Globulin Ratio 2.42 (1.60-3.17); BUN/Creat Ratio 13.33 Ratio (12.00-20.00); Calcium 8.4 mg/dL (8.7-10.3); Globulin 1.2 g/dL (1.6-3.3); Non-African American GFR(CKD) 93.7 (60.0-200.0); Potassium 3.2 mmol/L (3.5-5.5); Total Bilirubin 0.4 mg/dL (0.3-1.2); Total Protein 4.1 g/dL (6.2-8.2)
[2020-10-12] MEDS: HYDROmorphone 0.5 MG/0.5 ML SYRINGE IVP PRN (11:52)
[2020-10-12] MEDS ORDERED: Potassium Replacement Protocol 1 EACH MISC MISCELLANE PRN ×2 (12:48→13:48)
[2020-10-12] MEDS ORDERED: Magnesium Replacement Protocol 1 EACH MISC MISCELLANE PRN (12:48)
--- NOTE | 2020-10-12 12:50 | P.PN ---
Subjective Progress Note Date: 10/12/20 Principal diagnosis: Diarrhea This is a very pleasant 70-year-old female presented to the emergency department with complaints of 3-4 days of frequent loose bowel movements. She had similar episode and evaluation in 2019. She was reporting at least 6-7 watery bowel movements daily associated with urgency. She states she did have some blood in her rectum and associated with her symptoms.she states she gets episodes approximately once a month at the similar symptoms which last about 3-4 days. She states this one however is worse and had dark blood with her diarrhea. CT of the abdomen was performed yesterday which states correlate for colitis, post infectious, noninfectious, noncontrast exam limits evaluation. The bowel had fluid-filled loops of small and large bowel noted. Suspect there is colonic wall thickening. She is seen and examined lying in bed. She states that she has had some nausea, no vomiting. She states she is getting intermittent abdominal pain. She states she had 3-4 loose liquidy stools yesterday and for this morning. She denies any blood in her stool or rectal bleeding. She does state that she can feel a hemorrhoid and she feels like that's possibly where the bleeding had come from. She is tolerating her full liquid diet and would like to advance. She also states she does not feel the Imodium is working for her would like to try Lomotil. Objective - Vital Signs Vital signs: Vital Signs Temp 97.9 F 10/12/20 07:00 Pulse 72 10/12/20 07:00 Resp 16 10/12/20 07:00 BP 114/70 10/12/20 07:00 Pulse Ox 95 10/12/20 07:00 Intake & Output 10/11/20 10/12/20 10/12/20 18:59 06:59 18:59 Output Total 2 Balance -2 Output: Urine/Stool Mix 2 Other: Voiding Method Diaper Diaper Diaper Incontinent Incontinent Incontinent # Voids 1 1 # Bowel Movements 1 1 - Exam General appearance: The patient is alert, oriented, appears in no acute distress. HET: Head is normocephalic and atraumatic. Conjunctiva pink. Sclera anicteric. Neck: Supple without lymphadenopathy. Abdomen: Soft, left lower quadrant tenderness, nondistended with bowel sounds. No guarding or rigidity. Extremities: Normal skin color and turgor. No pedal edema Skin: No rashes, no jaundice Neurological: No focal deficits. Alert and oriented 3. - Labs CBC & Chem 7: 10/11/20 05:32 10/12/20 05:51 Labs: Abnormal Lab Results - Last 24 Hours (Table) 10/11/20 Range/Units 05:32 RBC 2.97 L (4.10-5.20) X 10*6/uL Hgb 9.3 L (12.0-15.0) g/dL Hct 29.0 L (37.2-46.3) % MCV 97.6 H (80.0-97.0) fL Plt Count 138 L (140-440) X 10*3/uL Plt Count Comment DECREASED A Immature Gran # 0.05 H (0.00-0.04) X 10*3/uL Lymphocytes # 0.89 L (0.90-5.00) X 10*3/uL Microbiology - Last 24 Hours (Table) 10/10/20 00:34 Stool Culture - Final Stool 10/09/20 15:52 Blood Culture - Preliminary Blood No Growth after 24 hours Assessment and Plan (1) Acute diarrhea Narrative/Plan: 70-year-old female presenting to the hospital with complaints of diarrhea, abdominal pain and blood per rectum. She reports 6-7 loose watery bowel movements daily with associated urgency. She denies any sick contacts, antibiotics or new medications or unusual foods. She previously had a similar episode in 2019 at which time computed tomography scan showed descending colon colitis she was treated for suspected ischemic versus infectious colitis and subsequently had EGD and colonoscopy in 05/2019 with findings of a well-healed colon With polypectomy, diverticulosis and gastritis noted on EGD. Unclear etiology, may be secondary to infectious versus ischemic colitis, no evidence of inflammatory bowel disease on prior colonoscopy in 2019. Testing for Clostridium difficile has been negative. CT of the abdomen reviewed, with an impression stating correlate for colitis, post infectious, noninfectious, noncontrast exam limits evaluation. No plans for endoscopic evaluation at this time, patient recommended for further workup and outpatient basis. Continue current management. Will switch Imodium to Lomotil, continue Questran. Current Visit: No Status: Acute Code(s): R19.7 - DIARRHEA, UNSPECIFIED SNOMED Code(s): 585347806 (2) Abdominal pain Current Visit: Yes Status: Acute Code(s): R10.9 - UNSPECIFIED ABDOMINAL PAIN SNOMED Code(s): 72461213 Plan: 1. Continue Supportive care 2. Advance to low fiber diet 3. Testing for Clostridium difficile negative 4. Other stool studies negative 5. CT of the abdomen and pelvis ordered, reviewed 6. Cholestyramine twice daily ordered 7. Discontinue Imodium, Lomotil ordered as needed 8. Celiac testing ordered per primary team, findings are negative 9. EGD and colonoscopy report from 05/2019 after patient's prior hospitalization for similar complaints reviewed 10. No plans for endoscopic evaluation at this time, patient recommended for outpatient follow-up Thank you for this consultation, we will continue to follow Dr. Judi Tony I agree with the dictator's note, documented as a scribe by Dayan Fuller.
[2020-10-12] MEDS: POTASSIUM CHLORIDE ER 20 MEQ TAB.ER PO SCH ×2 (14:06→15:58)
--- NOTE | 2020-10-12 15:48 | PN ---
PROGRESS NOTE DATE OF SERVICE: 10/12/2020 This 70-year-old woman who was admitted with recurrent diarrhea also had some abdominal discomfort. Patient treated symptomatically. No chest pain. No palpitations. No fever. PHYSICAL EXAMINATION: Alert and oriented x3. Pulse 72, blood pressure 114/70, respirations 16, temperature 97.9, pulse ox 95% on room air. HEENT: Conjunctivae normal. NECK: No jugular venous distention. CARDIOVASCULAR: S1, S2 muffled. RESPIRATORY: Breath sounds diminished at the bases. A few scattered rhonchi and crackles. ABDOMEN: Soft, mild diffuse discomfort. LEGS: No edema, no swelling. NERVOUS SYSTEM: No focal deficits. LABS: CRP is 23.7, ESR is 8, sodium 142, potassium 3.2. ASSESSMENT: 1. Abdominal pain with diarrhea with possible acute colitis and severe dehydration. 2. Acute renal failure possible acute tubular necrosis with prerenal factors, present on admission. 3. Elevated lactic acid secondary to dehydration. 4. Elevated CRP. 5. Metabolic acidosis acute, present on admission. 6. Rule out celiac disease. 7. Fibromyalgia. 8. Hypertension. 9. Possible irritable bowel syndrome. 10.Hyperlipidemia. 11.History of chronic liver disease. 12.History of rheumatoid arthritis. 13.History of syncope. 14.History of malar rash. 15.History of gastrointestinal bleed. 16.History of diverticulitis. 17.History of T1 spinal injury. 18.History of ORIF. 19.History of anxiety, depression, panic disorder, posttraumatic stress disorder. 20.Remote history of nicotine dependence. 21.FULL CODE. RECOMMENDATIONS AND DISCUSSION: In this 70-year-old woman who presented with multiple complex medical issues, at this time I recommend to continue the current medications, continue symptomatic treatment. Closely follow with Gastroenterology. Otherwise, replace potassium. Closely follow and recommend follow with Gastroenterology. Further recommendations to follow. Closely follow with Dr. Easton Tripathi after discharge. MMODL / IJN: [id number] /
[2020-10-12] MEDS: DIPHENOX-ATROP 2.5-0.025 MG 1 EACH TAB PO PRN (20:14)
[2020-10-13] MEDS: SODIUM CHLORIDE 0.9% 1,000 ML IV SCH (04:21)
[2020-10-13] MEDS: oxyCODONE-APAP 5-325MG 1 EACH TAB PO PRN ×2 (04:21→15:35)
[2020-10-13] MEDS: ATORVASTATIN 40 MG TAB PO SCH (08:06)
[2020-10-13] MEDS: CHOLESTYRAMINE (WITH SUGAR) 4 GM PACKET PO SCH ×2 (08:06→17:46)
[2020-10-13] MEDS: GABAPENTIN 300 MG CAP PO SCH ×3 (08:06→22:47)
[2020-10-13] MEDS: ASPIRIN 81 MG PO SCH (08:06)
[2020-10-13] MEDS: HEPARIN SODIUM,PORCINE/PF 5,000 UNIT/0.5 ML SYRINGE SQ SCH ×2 (08:06→20:03)
[2020-10-13] MEDS: FAMOTIDINE 20 MG TAB PO SCH ×2 (08:06→20:03)
[2020-10-13] MEDS: PANTOPRAZOLE 40 MG TABLET PO SCH (08:06)
[2020-10-13] MEDS: MULTIVITAMINS, THERA 1 EACH TAB PO SCH (08:07)
[2020-10-13] MEDS: VENLAFAXINE HCL ER 75 MG CAP PO SCH (08:07)
[2020-10-13] MEDS: CYANOCOBALAMIN 500 MCG TAB PO SCH (08:07)
[2020-10-13] MEDS: HYDROmorphone 0.5 MG/0.5 ML SYRINGE IVP PRN ×2 (08:43→20:03)
[2020-10-13 10:01] LABS: African American GFR (CKD) 103.2 (60.0-200.0); Anion Gap 6.3 mmol/L (4.00-12.00); BUN/Creat Ratio 12.86 Ratio (12.00-20.00); Carbon Dioxide 26.7 mmol/L (21.6-31.8); Magnesium 2.1 mg/dL (1.5-2.4); Potassium 3.6 mmol/L (3.5-5.5)
--- NOTE | 2020-10-13 10:45 | P.PN ---
Subjective Progress Note Date: 10/13/20 Principal diagnosis: Diarrhea This is a very pleasant 70-year-old female presented to the emergency department with complaints of 3-4 days of frequent loose bowel movements. She had similar episode and evaluation in 2019. She was reporting at least 6-7 watery bowel movements daily associated with urgency. She states she did have some blood in her rectum and associated with her symptoms.she states she gets episodes approximately once a month at the similar symptoms which last about 3-4 days. She states this one however is worse and had dark blood with her diarrhea. CT of the abdomen was performed yesterday which states correlate for colitis, post infectious, noninfectious, noncontrast exam limits evaluation. The bowel had fluid-filled loops of small and large bowel noted. Suspect there is colonic wall thickening. Should seen and examined sitting up in her bed. She states she is feeling much better. She has had no further episodes of diarrhea since been night. She's had no further episodes of rectal bleeding. Abdominal pain has subsided. She denies any nausea or vomiting and is tolerating her diet. Plan is for discharge home tomorrow Objective - Vital Signs Vital signs: Vital Signs Temp 97.8 F 10/13/20 07:00 Pulse 67 10/13/20 08:00 Resp 20 10/13/20 08:00 BP 131/83 10/13/20 07:00 Pulse Ox 94 L 10/13/20 07:00 Intake & Output 10/12/20 10/13/20 10/13/20 18:59 06:59 18:59 Intake Total 1020 500 Balance 1020 500 Intake: Intake, IV Titration 720 Amount Sodium Chloride 0.9% 1, 720 000 ml @ 60 mls/hr IV . [id number] [facility] Rx#:[id number] Oral 300 500 Other: Voiding Method Diaper Diaper Diaper Incontinent Incontinent Incontinent # Voids 3 3 # Bowel Movements 1 1 - Exam General appearance: The patient is alert, oriented, appears in no acute distress. HET: Head is normocephalic and atraumatic. Conjunctiva pink. Sclera anicteric. Neck: Supple without lymphadenopathy. Abdomen: Soft, non-tender, nondistended with bowel sounds. No guarding or rigidity. Extremities: Normal skin color and turgor. No pedal edema Skin: No rashes, no jaundice Neurological: No focal deficits. Alert and oriented 3. - Labs CBC & Chem 7: 10/11/20 05:32 10/13/20 05:03 Labs: Abnormal Lab Results - Last 24 Hours (Table) 10/12/20 10/13/20 Range/Units 05:51 05:03 Potassium 3.2 L (3.5-5.5) mmol/L Chloride 112 H (96-109) mmol/L BUN 8.0 L (9.0-27.0) mg/dL Glucose 131 H (70-110) mg/dL Calcium 8.4 L (8.7-10.3) mg/dL Total Protein 4.1 L (6.2-8.2) g/dL Albumin 2.90 L (3.80-4.90) g/dL Globulin 1.2 L (1.6-3.3) g/dL Microbiology - Last 24 Hours (Table) 10/09/20 15:52 Blood Culture - Preliminary Blood No Growth after 48 hours 10/10/20 00:34 Stool Culture - Final Stool Assessment and Plan (1) Acute diarrhea Narrative/Plan: 70-year-old female presenting to the hospital with complaints of diarrhea, abdominal pain and blood per rectum. She reports 6-7 loose watery bowel movements daily with associated urgency. She denies any sick contacts, antibiotics or new medications or unusual foods. She previously had a similar episode in 2019 at which time computed tomography scan showed descending colon colitis she was treated for suspected ischemic versus infectious colitis and subsequently had EGD and colonoscopy in 05/2019 with findings of a well-healed colon With polypectomy, diverticulosis and gastritis noted on EGD. Unclear etiology, may be secondary to infectious versus ischemic colitis, no evidence of inflammatory bowel disease on prior colonoscopy in 2019. Testing for Clostridium difficile has been negative. CT of the abdomen reviewed, with an impression stating correlate for colitis, post infectious, noninfectious, noncontrast exam limits evaluation. No plans for endoscopic evaluation at this time, patient recommended for further workup and outpatient basis. Continue current management. Will switch Imodium to Lomotil, continue Questran. Current Visit: No Status: Acute Code(s): R19.7 - DIARRHEA, UNSPECIFIED SNOMED Code(s): 546162697 (2) Abdominal pain Current Visit: Yes Status: Acute Code(s): R10.9 - UNSPECIFIED ABDOMINAL PAIN SNOMED Code(s): 01592287 Plan: 1. Continue Supportive care 2. Continue low fiber diet 3. Cholestyramine twice daily 4. Lomotil as needed 5. Celiac testing ordered per primary team, findings are negative 6. No plans for endoscopic evaluation at this time, patient recommended for outpatient follow-up Thank you for this consultation, patient may be discharged home with follow up in 3-[address] Judi Tony I agree with the dictator's note, documented as a scribe by Dayan Fuller.
--- NOTE | 2020-10-13 23:32 | P.PN ---
Progress Note - Text Progress Note Date: 10/13/20 History of presenting complaint: This is a pleasant 70-year-old patient of Dr. Tripathi. Chronic stable medical conditions include chronic fibromyalgia, chronic low back pain, rheumatoid arthritis, peripheral neuropathy, hyperlipidemia,Simental's esophagus,colonic diverticulosis. Patient also follows with Dr. Olson from the pain clinic. Patient was here in July of this year with acute colitis flareup. Patient now presents with 3-4 days of frequent loose bowel movements. Possible some blood with the rectum. Some abdominal pain. Computed tomography scan was suggestive of colitis. Patient seen by GI Dr. Judi Tony. Lomotil was added. Questran was added. Today: Feeling better. A bit tired. Did tolerate a light breakfast. No further diarrhea. Review of systems: Was done for constitutional, cardiovascular, GI, pulmonary. relevant finding as above Active Medications Acetaminophen (Acetaminophen Tab 325 Mg Tab) 650 mg PO Q6HR PRN PRN Reason: Mild Pain or Fever > 100.5 Aspirin (Aspirin 81 Mg) 81 mg PO DAILY [facility] Last Admin: 10/13/20 08:06 Dose: 81 mg Documented by: Atorvastatin Calcium (Atorvastatin 40 Mg Tab) 40 mg PO DAILY [facility] Last Admin: 10/13/20 08:06 Dose: 40 mg Documented by: Cholecalciferol (Cholecalciferol 10 Mcg (400 Iu) Tablet) 10 mcg PO Q48H [facility] Last Admin: 10/12/20 08:10 Dose: 10 mcg Documented by: Cholestyramine Resin (Cholestyramine (With Sugar) 4 Gm Packet) 4 gm PO BID@1000,1800 [facility] Last Admin: 10/13/20 17:46 Dose: Not Given Documented by: Cyanocobalamin (Cyanocobalamin 500 Mcg Tab) 500 mcg PO DAILY [facility] Last Admin: 10/13/20 08:07 Dose: 500 mcg Documented by: Diphenoxylate HCl/Atropine (Diphenox-Atrop 2.5-0.025 Mg 1 Each Tab) 1 each PO Q6HR PRN PRN Reason: Diarrhea Last Admin: 10/12/20 20:14 Dose: 1 each Documented by: Famotidine (Famotidine 20 Mg Tab) 20 mg PO BID [facility] Last Admin: 10/13/20 20:03 Dose: 20 mg Documented by: Gabapentin (Gabapentin 300 Mg Cap) 300 mg PO TID [facility] Last Admin: 10/13/20 22:47 Dose: 300 mg Documented by: Heparin Sodium (Porcine) (Heparin Sodium,Porcine/Pf 5,000 Unit/0.5 Ml Syringe) 5,000 unit SQ Q12HR [facility] Last Admin: 10/13/20 20:03 Dose: 5,000 unit Documented by: Hydromorphone HCl (Hydromorphone 0.5 Mg/0.5 Ml Syringe) 0.5 mg IVP Q4HR PRN PRN Reason: Severe Pain Last Admin: 10/13/20 20:03 Dose: 0.5 mg Documented by: Sodium Chloride (Saline 0.9%) 1,000 mls @ 60 mls/hr IV .[id number] [facility] Last Admin: 10/13/20 04:21 Dose: 60 mls/hr Documented by: Miscellaneous Information (Potassium Replacement Protocol 1 Each Misc) 1 each MISCELLANE DAILY PRN; Protocol PRN Reason: Per Protocol Miscellaneous Information (Magnesium Replacement Protocol 1 Each Misc) 1 each MISCELLANE DAILY PRN; Protocol PRN Reason: Per Protocol Miscellaneous Information (Potassium Replacement Protocol 1 Each Misc) 1 each MISCELLANE DAILY PRN; Protocol PRN Reason: Per Protocol Miscellaneous Information (Potassium Replacement Protocol 1 Each Misc) 1 each MISCELLANE DAILY PRN; Protocol PRN Reason: Per Protocol Multivitamins (Multivitamins, Thera 1 Each Tab) 1 each PO DAILY [facility] Last Admin: 10/13/20 08:07 Dose: 1 each Documented by: Naloxone HCl (Naloxone 0.4 Mg/Ml 1 Ml Vial) 0.2 mg IV Q2M PRN PRN Reason: Opioid Reversal Ondansetron HCl (Ondansetron 4 Mg/2 Ml Vial) 4 mg IVP Q6HR PRN PRN Reason: Nausea And Vomiting Last Admin: 10/11/20 07:41 Dose: 4 mg Documented by: Oxycodone/Acetaminophen (Oxycodone-Apap 5-325mg 1 Each Tab) 1 each PO Q8HR PRN PRN Reason: Pain Last Admin: 10/13/20 15:35 Dose: 1 each Documented by: Pantoprazole Sodium (Pantoprazole 40 Mg Tablet) 40 mg PO -BRKFST [facility] Last Admin: 10/13/20 08:06 Dose: 40 mg Documented by: Venlafaxine HCl (Venlafaxine Hcl Er 75 Mg Cap) 225 mg PO DAILY [facility] Last Admin: 10/13/20 08:07 Dose: 225 mg Documented by: Past medical history to include: Fibromyalgia, hyperlipidemia, rheumatoid arthritis, peripheral neuropathy, chronic low back pain, Simental's esophagus, colonic diverticulosis, irritable bowel syndrome, left breast cancer with surgeries and chemotherapy and radiation, cervical cancer with surgery, osteoporosis, T11 spinal surgery, anxiety depression. Chronic pain Social history: Patient smoked for 14 years, stopped in 1977. Patient was an alcoholic for about 21 years ago. Patient did pain medication the remote past. Did crack, heroin, many years ago. Lives alone. Patient been clean for many years Physical examination: VITAL SIGNS: 98.4, 63, 16, 120/75, 92% room air GENERAL: in bed, awake, bit tired EYES: Pupils equal. Conjunctiva normal. HEENT: External appearance of nose and ears normal, oral cavity grossly normal. NECK: JVD not raised; masses not palpable. HEART: First and second heart sounds are normal; no edema. LUNGS: Respiratory rate normal; clear to auscultation. ABDOMEN: Soft, no tenderness, no guarding or rigidity, liver spleen not palpable, no masses palpable. PSYCH: Alert and oriented x3; mood and affect anxious. INVESTIGATIONS, reviewed in the clinical context: WBC 6.2 hemoglobin 9.3 platelets 138 potassium 3.6 creatinine 0.7 Urine drug screen positive for opiates and oxycodone Computed tomography scan of the abdomen and pelvis: Suspect colonic wall thickening Assessment and plan: -acute on chronic colitis flareup. Manifesting with diarrhea. Responding to Lomotil and Questran . Diarrhea resolved -Acute kidney injury, prerenal from volume loss from diarrhea. Creatinine improved from 1.0 down to 0.6 with IV fluids -Essential hypertension. Continue to hold Zestoretic -Chronic fibromyalgia Use Percocet when necessary -Hyperlipidemia, continue Lipitor -Chronic rheumatoid arthritis, continue Percocet -Peripheral neuropathy, continue Neurontin -Chronic low back pain from T12 T11 compression fracture, continue Percocet -Simental's esophagus, continue PPI -Colonic diverticulosis, asymptomatic -anxiety depression, continue Effexor XR Care was discussed with the patient. She could've gone home today. Patient other keen to stay back today as she her house and not cleaned up. Discussed with GI. Discharged tomorrow
[2020-10-14] MEDS: HYDROmorphone 0.5 MG/0.5 ML SYRINGE IVP PRN ×4 (02:44→20:27)
[2020-10-14] MEDS: SODIUM CHLORIDE 0.9% 1,000 ML IV SCH ×2 (06:04→11:50)
[2020-10-14] MEDS: ATORVASTATIN 40 MG TAB PO SCH (08:45)
[2020-10-14] MEDS: CYANOCOBALAMIN 500 MCG TAB PO SCH (08:45)
[2020-10-14] MEDS: MULTIVITAMINS, THERA 1 EACH TAB PO SCH (08:45)
[2020-10-14] MEDS: GABAPENTIN 300 MG CAP PO SCH ×3 (08:45→20:28)
[2020-10-14] MEDS: FAMOTIDINE 20 MG TAB PO SCH ×2 (08:45→20:27)
[2020-10-14] MEDS: PANTOPRAZOLE 40 MG TABLET PO SCH (08:45)
[2020-10-14] MEDS: ASPIRIN 81 MG PO SCH (08:45)
[2020-10-14] MEDS: VENLAFAXINE HCL ER 75 MG CAP PO SCH (08:46)
[2020-10-14] MEDS: HEPARIN SODIUM,PORCINE/PF 5,000 UNIT/0.5 ML SYRINGE SQ SCH ×2 (08:46→20:27)
[2020-10-14] MEDS: CHOLECALCIFEROL 10 MCG (400 IU) TABLET PO SCH (08:46)
[2020-10-14] MEDS: CHOLESTYRAMINE (WITH SUGAR) 4 GM PACKET PO SCH ×2 (08:46→16:18)
[2020-10-14] MEDS: ONDANSETRON 4 MG/2 ML VIAL IVP PRN (08:51)
[2020-10-14] MEDS: DIPHENOX-ATROP 2.5-0.025 MG 1 EACH TAB PO PRN ×2 (08:51→16:18)
--- NOTE | 2020-10-14 16:03 | P.PN ---
Subjective Progress Note Date: 10/14/20 Principal diagnosis: Diarrhea This is a very pleasant 70-year-old female presented to the emergency department with complaints of 3-4 days of frequent loose bowel movements. She had similar episode and evaluation in 2019. She was reporting at least 6-7 watery bowel movements daily associated with urgency. She states she did have some blood in her rectum and associated with her symptoms.she states she gets episodes approximately once a month at the similar symptoms which last about 3-4 days. She states this one however is worse and had dark blood with her diarrhea. CT of the abdomen was performed which states correlate for colitis, post infectious, noninfectious, noncontrast exam limits evaluation. The bowel had fluid-filled loops of small and large bowel noted. Suspect there is colonic wall thickening. The patient is seen and examined sitting up in her bed. She states she 3 episodes of diarrhea today and some increased lower abdominal cramping. She sta ruben she does not feel like she can go home. She denies any nausea or vomiting, denies any rectal bleeding or melena. Objective - Vital Signs Vital signs: Vital Signs Temp 98.5 F 10/14/20 15:00 Pulse 67 10/14/20 15:00 Resp 16 10/14/20 15:00 BP 114/55 10/14/20 15:00 Pulse Ox 93 L 10/14/20 15:00 Intake & Output 10/13/20 10/14/20 10/14/20 18:59 06:59 18:59 Intake Total 860 300 480 Output Total 1000 Balance 860 300 -520 Intake: IV 300 Sodium Chloride 0.9% 1, 300 000 ml @ 60 mls/hr IV . [id number] [facility] Rx#:[id number] Oral 860 300 180 Output: Urine 1000 Other: Voiding Method Diaper Diaper Incontinent # Voids 1 3 2 # Bowel Movements 3 - Exam General appearance: The patient is alert, oriented, appears in no acute distress. HET: Head is normocephalic and atraumatic. Conjunctiva pink. Sclera anicteric. Neck: Supple without lymphadenopathy. Abdomen: Soft, non-tender, nondistended with bowel sounds. No guarding or rigidity. Extremities: Normal skin color and turgor. No pedal edema Skin: No rashes, no jaundice Neurological: No focal deficits. Alert and oriented 3. - Labs CBC & Chem 7: 10/11/20 05:32 10/13/20 05:03 Labs: Microbiology - Last 24 Hours (Table) 10/09/20 15:52 Blood Culture - Preliminary Blood No Growth after 96 hours 10/10/20 00:34 Stool Culture - Final Stool Assessment and Plan (1) Acute diarrhea Narrative/Plan: 70-year-old female presenting to the hospital with complaints of diarrhea, abdominal pain and blood per rectum. She reports 6-7 loose watery bowel movements daily with associated urgency. She denies any sick contacts, antibiotics or new medications or unusual foods. She previously had a similar episode in 2019 at which time computed tomography scan showed descending colon colitis she was treated for suspected ischemic versus infectious colitis and subsequently had EGD and colonoscopy in 05/2019 with findings of a well-healed colon With polypectomy, diverticulosis and gastritis noted on EGD. Unclear etiology, may be secondary to infectious versus ischemic colitis, no evidence of inflammatory bowel disease on prior colonoscopy in 2019. Testing for Clostridium difficile has been negative. CT of the abdomen reviewed, with an impression stating correlate for colitis, post infectious, noninfectious, noncontrast exam limits evaluation. No plans for endoscopic evaluation at this time, patient recommended for further workup and outpatient basis. Continue current management. Will switch Imodium to Lomotil, continue Questran. Current Visit: No Status: Acute Code(s): R19.7 - DIARRHEA, UNSPECIFIED SNOMED Code(s): 422724073 (2) Abdominal pain Current Visit: Yes Status: Acute Code(s): R10.9 - UNSPECIFIED ABDOMINAL PAIN SNOMED Code(s): 93726556 Plan: 1. Continue Supportive care 2. Continue low fiber diet 3. Cholestyramine twice daily 4. Lomotil as needed 5. Celiac testing ordered per primary team, findings are negative 6. No plans for endoscopic evaluation at this time, patient recommended for outpatient follow-up Us with patient her symptoms are common for IBS, continue Lomotil at home and Questran. Discussed that her symptoms likely will not resolve completely prior to discharge. Patient will have outpatient follow-up. Thank you for this consultation,will keep patient another day due to increase pain and diarrhea. Okay for discharge home tomorrow. Dr. Judi Tony I agree with the dictator's note, documented as a scribe by Dayan Forde
--- NOTE | 2020-10-14 22:38 | P.PN ---
Progress Note - Text Progress Note Date: 10/14/20 History of presenting complaint: This is a pleasant 70-year-old patient of Dr. Tripathi. Chronic stable medical conditions include chronic fibromyalgia, chronic low back pain, rheumatoid arthritis, peripheral neuropathy, hyperlipidemia,Simental's esophagus,colonic diverticulosis. Patient also follows with Dr. Olson from the pain clinic. Patient was here in July of this year with acute colitis flareup. Patient now presents with 3-4 days of frequent loose bowel movements. Possible some blood with the rectum. Some abdominal pain. Computed tomography scan was suggestive of colitis. Patient seen by GI Dr. Judi Tony. Lomotil was added. Questran was added. Today: Had some diarrhea this morning. Oral intake fair. Patient requesting to stay 1 more day. Up to the bathroom.. Review of systems: Was done for constitutional, cardiovascular, GI, pulmonary. relevant finding as above Active Medications Acetaminophen (Acetaminophen Tab 325 Mg Tab) 650 mg PO Q6HR PRN PRN Reason: Mild Pain or Fever > 100.5 Aspirin (Aspirin 81 Mg) 81 mg PO DAILY [facility] Last Admin: 10/14/20 08:45 Dose: 81 mg Documented by: Atorvastatin Calcium (Atorvastatin 40 Mg Tab) 40 mg PO DAILY [facility] Last Admin: 10/14/20 08:45 Dose: 40 mg Documented by: Cholecalciferol (Cholecalciferol 10 Mcg (400 Iu) Tablet) 10 mcg PO Q48H [facility] Last Admin: 10/14/20 08:46 Dose: 10 mcg Documented by: Cholestyramine Resin (Cholestyramine (With Sugar) 4 Gm Packet) 4 gm PO BID@1000,1800 [facility] Last Admin: 10/14/20 16:18 Dose: Not Given Documented by: Cyanocobalamin (Cyanocobalamin 500 Mcg Tab) 500 mcg PO DAILY [facility] Last Admin: 10/14/20 08:45 Dose: 500 mcg Documented by: Diphenoxylate HCl/Atropine (Diphenox-Atrop 2.5-0.025 Mg 1 Each Tab) 1 each PO Q6HR PRN PRN Reason: Diarrhea Last Admin: 10/14/20 16:18 Dose: 1 each Documented by: Famotidine (Famotidine 20 Mg Tab) 20 mg PO BID [facility] Last Admin: 10/14/20 20:27 Dose: 20 mg Documented by: Gabapentin (Gabapentin 300 Mg Cap) 300 mg PO TID [facility] Last Admin: 10/14/20 20:28 Dose: 300 mg Documented by: Heparin Sodium (Porcine) (Heparin Sodium,Porcine/Pf 5,000 Unit/0.5 Ml Syringe) 5,000 unit SQ Q12HR [facility] Last Admin: 10/14/20 20:27 Dose: 5,000 unit Documented by: Hydromorphone HCl (Hydromorphone 0.5 Mg/0.5 Ml Syringe) 0.5 mg IVP Q4HR PRN PRN Reason: Severe Pain Last Admin: 10/14/20 20:27 Dose: 0.5 mg Documented by: Sodium Chloride (Saline 0.9%) 1,000 mls @ 60 mls/hr IV .[id number] [facility] Last Admin: 10/14/20 11:50 Dose: 60 mls/hr Documented by: Miscellaneous Information (Potassium Replacement Protocol 1 Each Misc) 1 each MISCELLANE DAILY PRN; Protocol PRN Reason: Per Protocol Miscellaneous Information (Magnesium Replacement Protocol 1 Each Misc) 1 each MISCELLANE DAILY PRN; Protocol PRN Reason: Per Protocol Miscellaneous Information (Potassium Replacement Protocol 1 Each Misc) 1 each MISCELLANE DAILY PRN; Protocol PRN Reason: Per Protocol Miscellaneous Information (Potassium Replacement Protocol 1 Each Misc) 1 each MISCELLANE DAILY PRN; Protocol PRN Reason: Per Protocol Multivitamins (Multivitamins, Thera 1 Each Tab) 1 each PO DAILY [facility] Last Admin: 10/14/20 08:45 Dose: 1 each Documented by: Naloxone HCl (Naloxone 0.4 Mg/Ml 1 Ml Vial) 0.2 mg IV Q2M PRN PRN Reason: Opioid Reversal Ondansetron HCl (Ondansetron 4 Mg/2 Ml Vial) 4 mg IVP Q6HR PRN PRN Reason: Nausea And Vomiting Last Admin: 10/14/20 08:51 Dose: 4 mg Documented by: Oxycodone/Acetaminophen (Oxycodone-Apap 5-325mg 1 Each Tab) 1 each PO Q8HR PRN PRN Reason: Pain Last Admin: 10/13/20 15:35 Dose: 1 each Documented by: Pantoprazole Sodium (Pantoprazole 40 Mg Tablet) 40 mg PO -BRKFST [facility] Last Admin: 10/14/20 08:45 Dose: 40 mg Documented by: Venlafaxine HCl (Venlafaxine Hcl Er 75 Mg Cap) 225 mg PO DAILY [facility] Last Admin: 10/14/20 08:46 Dose: 225 mg Documented by: Past medical history to include: Fibromyalgia, hyperlipidemia, rheumatoid arthritis, peripheral neuropathy, chronic low back pain, Simental's esophagus, colonic diverticulosis, irritable bowel syndrome, left breast cancer with surgeries and chemotherapy and radiation, cervical cancer with surgery, osteoporosis, T11 spinal surgery, anxiety depression. Chronic pain Social history: Patient smoked for 14 years, stopped in 1977. Patient was an alcoholic for about 21 years ago. Patient did pain medication the remote past. Did crack, heroin, many years ago. Lives alone. Patient been clean for many years Physical examination: VITAL SIGNS: 98.5, 67, 16, 114/55, 93% room air GENERAL: in bed, awake, comfortable EYES: Pupils equal. Conjunctiva normal. HEENT: External appearance of nose and ears normal, oral cavity grossly normal. NECK: JVD not raised; masses not palpable. HEART: First and second heart sounds are normal; no edema. LUNGS: Respiratory rate normal; clear to auscultation. ABDOMEN: Soft, no tenderness, no guarding or rigidity, liver spleen not palpable, no masses palpable. PSYCH: Alert and oriented x3; mood and affect anxious. INVESTIGATIONS, reviewed in the clinical context: WBC 6.2 hemoglobin 9.3 platelets 138 potassium 3.6 creatinine 0.7 Urine drug screen positive for opiates and oxycodone Computed tomography scan of the abdomen and pelvis: Suspect colonic wall thickening Assessment and plan: -acute on chronic colitis flareup. Manifesting with diarrhea. Responding to Lomotil and Questran . Has some diarrhea this morning. -Acute kidney injury, prerenal from volume loss from diarrhea.-Improved Creatinine improved from 1.0 down to 0.6 with IV fluids -Essential hypertension. Continue to hold Zestoretic -Chronic fibromyalgia Use Percocet when necessary -Hyperlipidemia, continue Lipitor -Chronic rheumatoid arthritis, continue Percocet -Peripheral neuropathy, continue Neurontin -Chronic low back pain from T12 T11 compression fracture, continue Percocet -Simental's esophagus, continue PPI -Colonic diverticulosis, asymptomatic -anxiety depression, continue Effexor XR Patient requesting to stay 1 more day. Did explain to her that should be better off at home as less chance of infection. Patient insisting on staying 1 more day.
[2020-10-15] MEDS: HYDROmorphone 0.5 MG/0.5 ML SYRINGE IVP PRN ×2 (01:28→07:49)
[2020-10-15 05:39] LABS: African American GFR (CKD) >90 (>60 ml/min/1.73 sqM); Anion Gap 6 mmol/L; Blood Urea Nitrogen 12 mg/dL (7-17); Calcium 9.1 mg/dL (8.4-10.2); Carbon Dioxide 29 mmol/L (22-30); Chloride 103 mmol/L (98-107); Glucose 95 mg/dL (74-99); Non-African American GFR(CKD) >90 (>60 ml/min/1.73 sqM); Potassium 3.3 mmol/L (3.5-5.1); Sodium 138 mmol/L (137-145)
[2020-10-15 06:19] LABS: Basophils % (A) 1 %; Eosinophils # (A) 0.1 k/uL (0-0.7); Eosinophils % (A) 3 %; HCT 32.3 % (34.0-46.0); HGB 10.3 gm/dL (11.4-16.0); Lymphocytes # (A) 1.5 k/uL (1.0-4.8); Lymphocytes % (A) 32 %; MCH 30.9 pg (25.0-35.0); MCHC 31.8 g/dL (31.0-37.0); MCV 97.2 fL (80.0-100.0); Mean Platelet Volume 8.9; Monocytes # (A) 0.4 k/uL (0-1.0); Monocytes % (A) 8 %; Neutrophils # (A) 2.6 k/uL (1.3-7.7); Neutrophils % (A) 53 %; Platelet Count 230 k/uL (150-450); RBC 3.33 m/uL (3.80-5.40); RDW 13.7 % (11.5-15.5); WBC 4.8 k/uL (3.8-10.6)
[2020-10-15 07:37] VITALS: BP 155/84; PULSE 64; RESP 16; TEMP 98
[2020-10-15] MEDS: PANTOPRAZOLE 40 MG TABLET PO SCH (07:48)
[2020-10-15] MEDS: ASPIRIN 81 MG PO SCH (07:48)
[2020-10-15] MEDS: FAMOTIDINE 20 MG TAB PO SCH (07:48)
[2020-10-15] MEDS: CYANOCOBALAMIN 500 MCG TAB PO SCH (07:48)
[2020-10-15] MEDS: GABAPENTIN 300 MG CAP PO SCH (07:48)
[2020-10-15] MEDS: VENLAFAXINE HCL ER 75 MG CAP PO SCH (07:49)
[2020-10-15] MEDS: HEPARIN SODIUM,PORCINE/PF 5,000 UNIT/0.5 ML SYRINGE SQ SCH (07:49)
[2020-10-15] MEDS: MULTIVITAMINS, THERA 1 EACH TAB PO SCH (07:49)
[2020-10-15] MEDS: POTASSIUM CHLORIDE ER 20 MEQ TAB.ER PO SCH ×2 (07:49→09:15)
[2020-10-15] MEDS: ATORVASTATIN 40 MG TAB PO SCH (07:49)
--- NOTE | 2020-10-15 08:48 | P.PN ---
Subjective Progress Note Date: 10/15/20 Principal diagnosis: Diarrhea This is a very pleasant 70-year-old female presented to the emergency department with complaints of 3-4 days of frequent loose bowel movements. She had similar episode and evaluation in 2019. She was reporting at least 6-7 watery bowel movements daily associated with urgency. She states she did have some blood in her rectum and associated with her symptoms.she states she gets episodes approximately once a month at the similar symptoms which last about 3-4 days. She states this one however is worse and had dark blood with her diarrhea. CT of the abdomen was performed which states correlate for colitis, post infectious, noninfectious, noncontrast exam limits evaluation. The bowel had fluid-filled loops of small and large bowel noted. Suspect there is colonic wall thickening. The patient is seen and examined sitting up in her bed. States her abdominal pain has improved significantly from yesterday, she is not having any diarrhea today. Plan is for discharge home. Objective - Vital Signs Vital signs: Vital Signs Temp 98 F 10/15/20 07:00 Pulse 64 10/15/20 07:00 Resp 16 10/15/20 07:00 BP 155/84 10/15/20 07:00 Pulse Ox 95 10/15/20 07:00 Intake & Output 10/14/20 10/15/20 10/15/20 18:59 06:59 18:59 Intake Total 780 240 Output Total 1000 1000 Balance -220 -760 Intake: IV 300 Sodium Chloride 0.9% 1, 300 000 ml @ 60 mls/hr IV . [id number] [facility] Rx#:[id number] Oral 480 240 Output: Urine 1000 1000 Other: Voiding Method Diaper Diaper # Voids 2 2 # Bowel Movements 3 - Labs CBC & Chem 7: 10/15/20 04:31 10/15/20 04:31 Labs: Abnormal Lab Results - Last 24 Hours (Table) 10/15/20 10/15/20 Range/Units 04:31 04:31 RBC 3.33 L (3.80-5.40) m/uL Hgb 10.3 L (11.4-16.0) gm/dL Hct 32.3 L (34.0-46.0) % Potassium 3.3 L (3.5-5.1) mmol/L Microbiology - Last 24 Hours (Table) 10/09/20 15:52 Blood Culture - Preliminary Blood No Growth after 96 hours 10/10/20 00:34 Stool Culture - Final Stool Assessment and Plan (1) Acute diarrhea Narrative/Plan: 70-year-old female presenting to the hospital with complaints of diarrhea, abdominal pain and blood per rectum. She reports 6-7 loose watery bowel movements daily with associated urgency. She denies any sick contacts, antibiotics or new medications or unusual foods. She previously had a similar episode in 2019 at which time computed tomography scan showed descending colon colitis she was treated for suspected ischemic versus infectious colitis and subsequently had EGD and colonoscopy in 05/2019 with findings of a well-healed colon With polypectomy, diverticulosis and gastritis noted on EGD. Unclear etiology, may be secondary to infectious versus ischemic colitis, no evidence of inflammatory bowel disease on prior colonoscopy in 2019. Testing for Clostridium difficile has been negative. CT of the abdomen reviewed, with an impression stating correlate for colitis, post infectious, noninfectious, noncontrast exam limits evaluation. No plans for endoscopic evaluation at this time, patient recommended for further workup and outpatient basis. Continue current management. Will switch Imodium to Lomotil, continue Questran. Current Visit: No Status: Acute Code(s): R19.7 - DIARRHEA, UNSPECIFIED SNO MED Code(s): 686166364 (2) Abdominal pain Current Visit: Yes Status: Acute Code(s): R10.9 - UNSPECIFIED ABDOMINAL PAIN SNOMED Code(s): 75187219 Plan: 1. Continue Supportive care 2. Continue low fiber diet 3. Cholestyramine twice daily 4. Lomotil as needed 5. Celiac testing ordered per primary team, findings are negative 6. No plans for endoscopic evaluation at this time, patient recommended for outpatient follow-up Us with patient her symptoms are common for IBS, continue Lomotil at home and Questran. Discussed that her symptoms likely will not resolve completely prior to discharge. Patient will have outpatient follow-up. May discharge patient home today Dr. Judi Tony I agree with the dictator's note, documented as a scribe by Dayan Fuller.
[2020-10-15] MEDS: CHOLESTYRAMINE (WITH SUGAR) 4 GM PACKET PO SCH (09:15)
[2020-10-15] MEDS: oxyCODONE-APAP 5-325MG 1 EACH TAB PO PRN (11:39)
--- NOTE | 2020-10-15 21:05 | P.DS ---
Providers Date of admission: 10/11/20 08:35 Expected date of discharge: 10/15/20 Attending physician: Esau Flannery Consults: 10/09/20 17:55 Consult Physician Routine Consulting Provider: Yobany Perrin Consult Reason/Comments: acute kidney injury Do you want consulting provider notified?: Yes 10/09/20 19:17 Consult Physician Routine Consulting Provider: Bg Haddad Consult Reason/Comments: colitis vs celiac disease Do you want consulting provider notified?: Yes Primary care physician: Easton Tripathi [facility] Course: History of presenting complaint: This is a pleasant 70-year-old patient of Dr. Tripathi. Chronic stable medical conditions include chronic fibromyalgia, chronic low back pain, rheumatoid arthritis, peripheral neuropathy, hyperlipidemia,Simental's esophagus,colonic diverticulosis. Patient also follows with Dr. Olson from the pain clinic. Patient was here in July of this year with acute colitis flareup. Patient now presents with 3-4 days of frequent loose bowel movements. Possible some blood with the rectum. Some abdominal pain. Computed tomography scan was suggestive of colitis. Patient seen by GI Dr. Judi Tony. Lomotil was added. Questran was added. Today: Doing better. Healthy diet was discussed at length with the patient. Patient cleared by GI. Consultation: Dr. Judi Tony from GI Past medical history to include: Fibromyalgia, hyperlipidemia, rheumatoid arthritis, peripheral neuropathy, chronic low back pain, Simental's esophagus, colonic diverticulosis, irritable bowel syndrome, left breast cancer with surgeries and chemotherapy and radiation, cervical cancer with surgery, osteoporosis, T11 spinal surgery, anxiety depression. Chronic pain Social history: Patient smoked for 14 years, stopped in 1977. Patient was an alcoholic for about 21 years ago. Patient did pain medication the remote past. Did crack, heroin, many years ago. Lives alone. Patient been clean for many years Physical examination: VITAL SIGNS: 98, 64, 16, 155/84, 95% room air GENERAL: in bed, awake, comfortable EYES: Pupils equal. Conjunctiva normal. HEENT: External appearance of nose and ears normal, oral cavity grossly normal. NECK: JVD not raised; masses not palpable. HEART: First and second heart sounds are normal; no edema. LUNGS: Respiratory rate normal; clear to auscultation. ABDOMEN: Soft, no tenderness, no guarding or rigidity, liver spleen not palpable, no masses palpable. PSYCH: Alert and oriented x3; mood and affect anxious. INVESTIGATIONS, reviewed in the clinical context: October 15: Obesity 4.8 hemoglobin 10.3 platelets 2:30 potassium 3.6 creatinine 0.53 WBC 6.2 hemoglobin 9.3 platelets 138 potassium 3.6 creatinine 0.7 Urine drug screen positive for opiates and oxycodone Computed tomography scan of the abdomen and pelvis: Suspect colonic wall thickening Assessment and plan: -acute on chronic colitis flareup. Manifesting with diarrhea. Responding to Lomotil and Questran . Improved -Acute kidney injury, prerenal from volume loss from diarrhea.-Improved Creatinine improved from 1.0 down to 0.6 with IV fluids -Essential hypertension. Zestoretic -Chronic fibromyalgia Use Percocet when necessary -Hyperlipidemia, continue Lipitor -Chronic rheumatoid arthritis, continue Percocet -Peripheral neuropathy, continue Neurontin -Chronic low back pain from T12 T11 compression fracture, continue Percocet -Simental's esophagus, continue PPI -Colonic diverticulosis, asymptomatic -anxiety depression, continue Effexor XR Disposition: Home Plan - Discharge Summary New Discharge Prescriptions: New Diphenox-Atrop 2.5-0.025 mg [Lomotil] 1 each PO Q6HR PRN #30 tab PRN Reason: Diarrhea Cholestyramine (with Sugar) [Questran Packet] 4 gm PO BID@1000,1800 #60 packet Famotidine [Pepcid] 20 mg PO BID #60 tab Continue Atorvastatin [Lipitor] 40 mg PO DAILY Omeprazole 40 mg PO DAILY Venlafaxine HCl [Effexor XR] 225 mg PO DAILY oxyCODONE HCL/ACETAMINOPHEN [Percocet 5-325 mg] 1 tab PO Q8HR PRN #90 tab PRN Reason: Pain Gabapentin [Neurontin] 300 mg PO TID #90 cap Acetaminophen Tab [Tylenol] 325 mg PO DAILY PRN PRN Reason: Fever And/ Or Pain Multivit-Min/FA/Lycopen/Lutein [Centrum Silver Tablet] 1 tab PO DAILY Ubidecarenone [Co Q-10] 200 mg PO DAILY Cyanocobalamin [Vitamin B-12] 500 mcg PO DAILY Cholecalciferol (Vitamin D3) [Vitamin D3 (5000 Iu)] 250 mcg PO Q48H Aspirin 81 mg PO DAILY chew No Action Turmeric Root Extract [Turmeric] 1,000 mg PO DAILY Lisinopril-Hctz 20-12.5 mg [Zestoretic 20-12.5] 1 tab PO DAILY Discharge Medication List Atorvastatin [Lipitor] 40 mg PO DAILY 03/17/18 [History] Omeprazole 40 mg PO DAILY 03/18/19 [History] Venlafaxine HCl [Effexor XR] 225 mg PO DAILY 11/07/19 [History] Gabapentin [Neurontin] 300 mg PO TID #90 cap 06/30/20 [Rx] oxyCODONE HCL/ACETAMINOPHEN [Percocet 5-325 mg] 1 tab PO Q8HR PRN #90 tab 06/30/20 [Rx] Acetaminophen Tab [Tylenol] 325 mg PO DAILY PRN 08/07/20 [History] Cholecalciferol (Vitamin D3) [Vitamin D3 (5000 Iu)] 250 mcg PO Q48H 08/07/20 [History] Cyanocobalamin [Vitamin B-12] 500 mcg PO DAILY 08/07/20 [History] Multivit-Min/FA/Lycopen/Lutein [Centrum Silver Tablet] 1 tab PO DAILY 08/07/20 [History] Ubidecarenone [Co Q-10] 200 mg PO DAILY 08/07/20 [History] Aspirin 81 mg PO DAILY chew 08/08/20 [Rx] Turmeric Root Extract [Turmeric] 1,000 mg PO DAILY 09/03/20 [History] Lisinopril-Hctz 20-12.5 mg [Zestoretic 20-12.5] 1 tab PO DAILY 10/09/20 [History] Cholestyramine (with Sugar) [Questran Packet] 4 gm PO BID@1000,1800 #60 packet 10/15/20 [Rx] Diphenox-Atrop 2.5-0.025 mg [Lomotil] 1 each PO Q6HR PRN #30 tab 10/15/20 [Rx] Famotidine [Pepcid] 20 mg PO BID #60 tab 10/15/20 [Rx] Follow up Appointment(s)/Referral(s): Easton Tripathi DO [Primary Care Provider] - 10/26/20 11:30 am Bg Haddad MD [STAFF PHYSICIAN] - 11/10/20 11:15 am Patient Instructions/Handouts: Dehydration (DC), Acute Kidney Injury (DC), Chronic Diarrhea (DC) Discharge/Stand Alone Forms: Help In The Home Discharge Disposition: HOME SELF-CARE
== END 2020-10-15 14:23 | disposition home or self-care (01) | DRG 391 ==
LOC: EC 14:32 → 6NMEDSUR 17:57 → UNDODISOB 10-10 12:18 → OBSVTOIN 10-11 08:35
PROVIDERS: ADMIT Hospitalist; ATTEND Hospitalist
DX: K52.9 Noninfective gastroenteritis and colitis, unspecified (principal); N17.0 Acute kidney failure with tubular necrosis; E87.2 Acidosis; E87.0 Hyperosmolality and hypernatremia; M06.9 Rheumatoid arthritis, unspecified; F11.11 Opioid abuse, in remission; F10.21 Alcohol dependence, in remission; Z20.822 Contact with and (suspected) exposure to COVID-19; E78.5 Hyperlipidemia, unspecified; I10 Essential (primary) hypertension; E86.0 Dehydration; E83.42 Hypomagnesemia; E86.1 Hypovolemia; M79.7 Fibromyalgia; K76.9 Liver disease, unspecified; K21.9 Gastro-esophageal reflux disease without esophagitis; M81.0 Age-related osteoporosis without current pathological fracture; G43.909 Migraine, unspecified, not intractable, without status migrainosus; G62.9 Polyneuropathy, unspecified; F41.8 Other specified anxiety disorders; F43.10 Post-traumatic stress disorder, unspecified; F41.0 Panic disorder [episodic paroxysmal anxiety]; G89.29 Other chronic pain; M54.5 Low back pain; R29.6 Repeated falls; R32 Unspecified urinary incontinence; R21 Rash and other nonspecific skin eruption; T50.2X5A Adverse effect of carbonic-anhydrase inhibitors, benzothiadiazides and other diuretics, initial encounter; K22.70 Barrett's esophagus without dysplasia; M48.54XS Collapsed vertebra, not elsewhere classified, thoracic region, sequela of fracture; K57.30 Diverticulosis of large intestine without perforation or abscess without bleeding; M19.90 Unspecified osteoarthritis, unspecified site; Z79.82 Long term (current) use of aspirin; Z79.899 Other long term (current) drug therapy; Z87.891 Personal history of nicotine dependence; Z87.19 Personal history of other diseases of the digestive system; Z90.12 Acquired absence of left breast and nipple; Z90.710 Acquired absence of both cervix and uterus; Z85.3 Personal history of malignant neoplasm of breast; Z92.21 Personal history of antineoplastic chemotherapy; Z92.3 Personal history of irradiation; Z85.41 Personal history of malignant neoplasm of cervix uteri; Z87.81 Personal history of (healed) traumatic fracture; Z98.891 History of uterine scar from previous surgery; Z96.612 Presence of left artificial shoulder joint; Z90.89 Acquired absence of other organs; Z98.1 Arthrodesis status; Z87.11 Personal history of peptic ulcer disease; Z86.010 Personal history of colon polyps; Z86.19 Personal history of other infectious and parasitic diseases; Z86.69 Personal history of other diseases of the nervous system and sense organs; Z98.890 Other specified postprocedural states; Z91.040 Latex allergy status; Z88.2 Allergy status to sulfonamides; Z88.8 Allergy status to other drugs, medicaments and biological substances; Z91.048 Other nonmedicinal substance allergy status; Z82.49 Family history of ischemic heart disease and other diseases of the circulatory system
CPT/HCPCS: 36415; 74176; 80048; 80053; 80306; 81001; 82150; 83516; 83605; 83630; 83690; 83735; 84132; 84484; 85025; 85652; 86038; 86140; 86225; 86431; 87040; 87045; 87046; 87324; 87635; 93005; 96361; 96374; 96375; 99285

== ENCOUNTER 2020-10-30 09:18 | Emergency (ER) | payer MEDICARE ==
[2020-10-30 09:24] VITALS: RESP 18; TEMP 98.5
[2020-10-30] MEDS ORDERED: MORPHINE SULFATE 4 MG/ML SYRINGE IVP STA (09:37)
--- NOTE | 2020-10-30 10:09 | ED ---
General Adult HPI - General Chief complaint: Back Pain/Injury Stated complaint: Back pain Time Seen by Provider: 10/30/20 09:23 Source: patient, EMS, RN notes reviewed, old records reviewed Mode of arrival: EMS - History of Present Illness Initial comments: 70-year-old female presented for evaluation of chronic back pain. Patient states that she has been off of her medication for about 2 weeks she had been frustrated and threw away her Percocet. She is on gabapentin and no other opiates at this time. She does follow with a pain clinic and is seeing them on Sunday which is 2 days from now. She states she is planning to have a pain pump placed. She denies any new injury. States her pain is chronic and at baseline. No fever. No dysuria. - Related Data Home Medications Medication Instructions Recorded Confirmed Atorvastatin [Lipitor] 40 mg PO DAILY 03/17/18 10/28/20 Omeprazole 40 mg PO DAILY 03/18/19 10/28/20 Venlafaxine HCl [Effexor XR] 225 mg PO DAILY 11/07/19 10/28/20 Acetaminophen Tab [Tylenol] 325 mg PO DAILY PRN 08/07/20 10/28/20 Cholecalciferol (Vitamin D3) 250 mcg PO Q48H 08/07/20 10/28/20 [Vitamin D3 (5000 Iu)] Cyanocobalamin [Vitamin B-12] 500 mcg PO DAILY 08/07/20 10/28/20 Multivit-Min/FA/Lycopen/Lutein 1 tab PO DAILY 08/07/20 10/28/20 [Centrum Silver Tablet] Ubidecarenone [Co Q-10] 200 mg PO DAILY 08/07/20 10/28/20 Turmeric Root Extract [Turmeric] 1,000 mg PO DAILY 09/03/20 10/28/20 Lisinopril-Hctz 20-12.5 mg 1 tab PO DAILY 10/09/20 10/28/20 [Zestoretic 20-12.5] Folic Acid 0.4 mg PO DAILY 10/28/20 10/28/20 Previous Rx's Medication Instructions Recorded Gabapentin [Neurontin] 300 mg PO TID #90 cap 06/30/20 Aspirin 81 mg PO DAILY chew 08/08/20 Cholestyramine (with Sugar) 4 gm PO BID@1000,1800 #60 packet 10/15/20 [Questran Packet] Diphenox-Atrop 2.5-0.025 mg 1 each PO Q6HR PRN #30 tab 10/15/20 [Lomotil] Famotidine [Pepcid] 20 mg PO BID #60 tab 10/15/20 Allergies Allergy/AdvReac Type Severity Reaction Status Date / Time Sulfa (Sulfonamide Allergy Severe Rash/Hives Verified 10/28/20 09:32 Antibiotics) Tetracyclines Allergy Severe Rash/Hives Verified 10/28/20 09:32 latex Allergy Rash/Hives Verified 10/28/20 09:32 lorazepam [From Ativan] AdvReac Confusion Verified 10/28/20 09:32 TIDE AND EXTRA LAUNDRY SOAP Allergy Rash/Hives Uncoded 10/28/20 09:32 Review of Systems ROS Statement: Those systems with pertinent positive or pertinent negative responses have been documented in the HPI. ROS Other: All systems not noted in ROS Statement are negative. Past Medical History Past Medical History: Cancer, Fibromyalgia, GERD/Reflux, GI Bleed, Hyperlipidemia, Hypertension, Liver Disease, Osteoarthritis (OA), Rheumatoid Arthritis (RA), Syncope Additional Past Medical History / Comment(s): Past lower GI bleed, diverticulitis, IBS, gastric ulcer, hepatitis A, L breast cancer with surgeries/chemo and radiation, cervical cancer with surgery, bronchitis, osteoporosis, neuropathy bilateral feet and hands, chronic pain, past L humeral fracture, T11 spinal injury, chronic cervical and lumbar back pain, recurrent falls, migraines, osteoarthritis and rheumatoid arthritis in multiple joints History of Any Multi-Drug Resistant Organisms: None Reported Past Surgical History: Section, Hysterectomy, Joint Replacement, Orthopedic Surgery, Tonsillectomy Additional Past Surgical History / Comment(s): ORIF L humerus with carlos/screws since removed, total L shoulder arthroplasty, cervical and lumbar fusions, pain clinic procedures, D&C, bilateral breast reductions with nonhealing wound and had closure/skin grafting, L breast lumpectomies and then L breast mastectomy, R tympanoplasty, EGDs, colonoscopies, ivy fundoplasty, loop recorder. Past Anesthesia/Blood Transfusion Reactions: No Reported Reaction Additional Past Anesthesia/Blood Transfusion Reaction / Comment(s): Pt received blood this admission without reaction. Past Psychological History: Anxiety, Depression, Panic Disorder, PTSD Smoking Status: Former smoker Past Alcohol Use History: None Reported Past Drug Use History: None Reported - Past Family History Mother Family Medical History: Myocardial Infarction (CO) Additional Family Medical History / Comment(s): . General Exam General appearance: alert, in no apparent distress Head exam: Present: atraumatic, normocephalic Eye exam: Present: normal appearance, PERRL ENT exam: Present: normal exam Neck exam: Present: normal inspection. Absent: tenderness, meningismus Respiratory exam: Present: normal lung sounds bilaterally. Absent: respiratory distress, wheezes Cardiovascular Exam: Present: regular rate, normal rhythm GI/Abdominal exam: Present: soft. Absent: distended, tenderness, guarding Extremities exam: Present: normal inspection, normal capillary refill. Absent: calf tenderness Back exam: Present: tenderness, paraspinal tenderness Neurological exam: Present: alert, oriented X3, CN II-XII intact. Absent: motor sensory deficit Psychiatric exam: Present: normal affect, normal mood Skin exam: Present: warm, dry, intact. Absent: cyanosis, diaphoretic Course Vital Signs 10/30/20 09:20 Temperature 98.5 F Pulse Rate 89 Respiratory 18 Rate Blood Pressure 180/109 O2 Sat by Pulse 98 Oximetry Medical Decision Making - Medical Decision Making 62-year-old female with chronic back pain, patient no longer has her home Percocet and is experiencing worsening pain. No injury. No alarming features on history or physical exam. She has a scheduled appointment with the pain clinic in 2 days. She's given a dose of morphine in the emergency department. I did obtain laboratory testing because the patient states that she previously has had kidney failure associated with her pain flareups. This shows a normal kidney function, CBC, normal electrolytes. Patient will maintain her follow-up appointment with the pain clinic. - Lab Data Result diagrams: 10/30/20 10:03 10/30/20 10:03 Lab Results 10/30/20 10/30/20 Range/Units 10:03 10:03 WBC 4.4 (3.8-10.6) k/uL RBC 4.07 (3.80-5.40) m/uL Hgb 12.7 (11.4-16.0) gm/dL Hct 38.9 (34.0-46.0) % MCV 95.7 (80.0-100.0) fL MCH 31.3 (25.0-35.0) pg MCHC 32.7 (31.0-37.0) g/dL RDW 13.8 (11.5-15.5) % Plt Count 302 (150-450) k/uL MPV 7.6 Neutrophils % 55 % Lymphocytes % 31 % Monocytes % 6 % Eosinophils % 3 % Basophils % 1 % Neutrophils # 2.4 (1.3-7.7) k/uL Lymphocytes # 1.3 (1.0-4.8) k/uL Monocytes # 0.3 (0-1.0) k/uL Eosinophils # 0.2 (0-0.7) k/uL Basophils # 0.0 (0-0.2) k/uL Sodium 143 (137-145) mmol/L Potassium 4.7 (3.5-5.1) mmol/L Chloride 107 (98-107) mmol/L Carbon Dioxide 27 (22-30) mmol/L Anion Gap 9 mmol/L BUN 15 (7-17) mg/dL Creatinine 0.59 (0.52-1.04) mg/dL Est GFR (CKD-EPI)AfAm >90 (>60 ml/min/1.73 sqM) Est GFR (CKD-EPI)NonAf >90 (>60 ml/min/1.73 sqM) Glucose 102 H (74-99) mg/dL Calcium 10.9 H (8.4-10.2) mg/dL Disposition Clinical Impression: Chronic pain Disposition: HOME SELF-CARE Condition: Fair Instructions (If sedation given, give patient instructions): Chronic Pain (ED) Additional Instructions: Please follow up with the pain management Center on Sunday as planned. Is patient prescribed a controlled substance at d/c from ED?: No Referrals: Easton Tripathi DO [Primary Care Provider] - 1-2 days Time of Disposition: 10:28
[2020-10-30 10:14] LABS: Basophils % (A) 1 %; Eosinophils # (A) 0.2 k/uL (0-0.7); Eosinophils % (A) 3 %; HCT 38.9 % (34.0-46.0); HGB 12.7 gm/dL (11.4-16.0); Lymphocytes # (A) 1.3 k/uL (1.0-4.8); Lymphocytes % (A) 31 %; MCH 31.3 pg (25.0-35.0); MCHC 32.7 g/dL (31.0-37.0); MCV 95.7 fL (80.0-100.0); Mean Platelet Volume 7.6; Monocytes # (A) 0.3 k/uL (0-1.0); Monocytes % (A) 6 %; Neutrophils # (A) 2.4 k/uL (1.3-7.7); Neutrophils % (A) 55 %; Platelet Count 302 k/uL (150-450); RBC 4.07 m/uL (3.80-5.40); RDW 13.8 % (11.5-15.5); WBC 4.4 k/uL (3.8-10.6)
[2020-10-30 10:18] LABS: African American GFR (CKD) >90 (>60 ml/min/1.73 sqM); Anion Gap 9 mmol/L; Blood Urea Nitrogen 15 mg/dL (7-17); Calcium 10.9 mg/dL (8.4-10.2); Carbon Dioxide 27 mmol/L (22-30); Chloride 107 mmol/L (98-107); Glucose 102 mg/dL (74-99); Non-African American GFR(CKD) >90 (>60 ml/min/1.73 sqM); Potassium 4.7 mmol/L (3.5-5.1); Sodium 143 mmol/L (137-145)
[2020-10-30] MEDS ORDERED: KETOROLAC 15 MG/ML 1 ML VIAL IVP STA (10:27)
[2020-10-30 12:08] VITALS: BP 182/91; PULSE 83
== END 2020-10-30 12:07 | disposition home or self-care (01) ==
LOC: EC 09:18
DX: G89.29 Other chronic pain (principal); M54.9 Dorsalgia, unspecified; E78.5 Hyperlipidemia, unspecified; M79.7 Fibromyalgia; M06.9 Rheumatoid arthritis, unspecified; F32.9 Major depressive disorder, single episode, unspecified; F41.9 Anxiety disorder, unspecified; I10 Essential (primary) hypertension; K21.9 Gastro-esophageal reflux disease without esophagitis; M81.0 Age-related osteoporosis without current pathological fracture; G43.909 Migraine, unspecified, not intractable, without status migrainosus; M19.90 Unspecified osteoarthritis, unspecified site; Z85.41 Personal history of malignant neoplasm of cervix uteri; Z87.891 Personal history of nicotine dependence; Z79.82 Long term (current) use of aspirin; Z90.12 Acquired absence of left breast and nipple
CPT/HCPCS: 36415; 80048; 85025; 99283; 96374; 96375; J2270; J1885

== ENCOUNTER → 2020-11-01 | Outpatient (CLI) | payer MEDICARE ==
[2020-11-01 13:13] VITALS: BP 130/68; PULSE 97; RESP 18; TEMP 98.6
--- NOTE | 2020-11-01 14:48 | P.PN ---
Subjective Progress Note Date: 11/01/20 This is follow-up visit for this patient with a history of severe and chronic low back pain, and neck pain pain , and low back pain she is diagnosed with lumbar pain and back surgery syndrome, and lumbar spondylosis with lumbar facet arthropathy,, patient reported that over the last few weeks she started feeling increased intensity of her pain and the current medication she is gaiting is not helping her pain ,Patients currently on , Percocet 5/325 every 6 hours when necessary, Neurontin 300 mg 3 times a day, Patient denies any side effects of the medication, denies excessive drowsiness or sleepiness, denies suicidal ideation.,Patient denies any motor or sensory deficit , patient denies any fever or night sweats, denies any change in the bowel movements or urination, she came today she is asking about the possibility of placing an intrathecal pain pump!!!!!!!!!!!!!!!! Physical Examinations : -Constitutiona : Cooperative , not in acute distress . -HEENT : nech : supple , no Lymphadenopathy , normal thyroid size . : eyes : no ptosis , no icterus, no photophobia . - neurologic : Cranial nerve II to XII intact , no focal neurological deffecit . -psychatric : alert , oriented X 3 , appropriate affect , intact judgment and insight . -Lymphatic : no Lymphadenopathy . - musculoskeltal : Lumber spine moter stegnth lower extremities ,thigh and legs 5/5 Right side , 5/5 Left side deep tendon reflexes : normal Knee Jerk , normal ankle Jerk lumber facet Loading Test =positive Right , positive Left Range of motion of the lumbar spine Flexion 30 degrees, extension 10 degrees strait leg raising test = positive at degree Fabere test= positive Right , and positive LT . Sever tenderness over the Sacroiliac joint on the Right , and Left sides Gaenslen test= positive right ,and positive left . Seated flexion test= positive right ,and positive Left . Distraction test= positive bilaterally Multiple trigger point identified in the lumbar paraspinal muscles bilaterally Assessment and Plan chronic low back pain secondary to lumbar degenerative disc disease ,lumbar spondylosis with lumbar facet arthropathy . Bilateral sacroiliitis Myofascial pain syndrome lumbar paraspinal muscles chronic and current use of high-risk medication (opioids) Patient denies any side effects of the current pain medication and the current treatment/medication helping the patient to do activity of daily living , Diagnoses, prognosis, treatment options, including but not limited to physical therapy, medication management, interventional therapies, and surgery, were discussed with the patient All the questions answered The narcotic consent was signed and patient agreed and understood the side effects and complications of opioid treatment. Patient signed the narcotic agreement, and was orally counseled, not to overuse, not to abuse, not to Divert , not to sell pain medication, and to take it as prescribed only, Patient was counseled not to drive or operate heavy equipment while using narcotic medication, and advised not to use alcohol or any Illicit drugs while using the narcotics understanding that lack of compliance with any of the above instructions, will likely to cause discharge from, the pain service, not to renew his narcotic prescriptions [facility] Reviwed and it was apropriate . urine drug screen was reviewed and it was okay Medication managements= patient will be given prescription refills for [place] 10/325 every 8 hours dispense 90with one refill, Neurontin 300 mg 3 times a day dispense 90 with 1 refill. Discontinue Percocet She denies any drowsiness or sleepiness, she denies any suicidal ideation she denies any nausea or vomiting She denies any motor or sensory deficits she is able to ambulate on her own using the medications interventions= patient could benefit from bilateral sacroiliac joint steroid injections, and she could benefit from trigger point injections lumbar paraspinal muscles PQRS Measure Charge Sheet Measure #130: Documentation of Current Meds in Medical Chart: Patient's medications documented in chart Measure #226: Tobacco Use: Screen & Cessation Intervention: Pt not a tobacco user Measure #111: Pneumonia Vaccination: Pneumococcal vaccine administered or previously received Measure #47: Advance Care Plan: Advance care planning discussed & documented, pt chose/unable to give Measure #412: Opioid Treatment Agreement: Documented signed opioid trtmnt agreemnt min once during opioid trtmnt Measure #408: Opioid Therapy Follow-up Evaluation: Patient had f/u eval minimum every 3 months during opioid therapy Measure #317: Preventitive Care & Scrn High Bld Press & F/U: Normal blood pressure, f/u not required Measure #128: Body Mass Index (BMI) Screening & Follow-up: BMI documented within normal parameters Measure #131: Pain Assessment & Follow-up: Pain positive & plan documented, Follow-up scheduled Measure #431: Unhealthy Alcohol Use Preventative Care & Scrn: Patient not identified as an unhealthy alcohol user PQRS Narrative: Objective - Vital Signs Vital signs: Vital Signs Temp 98.6 F 11/01/20 13:04 Pulse 97 11/01/20 13:04 Resp 18 11/01/20 13:04 BP 130/68 11/01/20 13:04 Pulse Ox 97 11/01/20 13:04
== END ==
LOC: PNWHC3 12:56
PROVIDERS: ATTEND Specialist
DX: G89.29 Other chronic pain (principal); M51.36 Other intervertebral disc degeneration, lumbar region; M47.816 Spondylosis without myelopathy or radiculopathy, lumbar region; M46.1 Sacroiliitis, not elsewhere classified; M79.18 Myalgia, other site; Z79.891 Long term (current) use of opiate analgesic; Z88.2 Allergy status to sulfonamides; Z88.1 Allergy status to other antibiotic agents; Z91.040 Latex allergy status; Z91.048 Other nonmedicinal substance allergy status; Z88.8 Allergy status to other drugs, medicaments and biological substances; Z87.891 Personal history of nicotine dependence
CPT/HCPCS: 99211

== ENCOUNTER → 2020-11-30 | Day surgery (SDC) | payer MEDICARE ==
[~2020-11-30] MED LIST changes: +IV FLUID CONTINUATION 1,000 ML IV ONE; +LIDOCAINE 1% (10MG/ML) FOR IV START INTRADERMA ONE; +MIDAZOLAM 2 MG/2 ML VIAL ONE; +ROPIVACAINE 5MG/ML 20ML VIAL ONE; +fentaNYL (PF) 50 MCG/ML 2 ML AMP ONE; +methylPREDNISolone ACETATE 40 MG/ML 1 ML VIAL ONE
[2020-11-30 07:38] VITALS: RESP 16; TEMP 97.6
--- NOTE | 2020-11-30 08:22 | P.PCN ---
Date of Procedure: 11/30/20 Procedure(s) Performed: Procedure= 1-bilateral sacroiliac joints steroid injection under fluoroscopy guidance (fluoroscopy image stored on file in the radiology Department ) 2- trigger point injections in the lumbar paraspinal muscles, 3 on the right side lumbar paraspinal muscles ,and 3 on the left side lumbar paraspinal muscles Preoperative diagnosis= 1-sacroiliitis 2-lumbar degenerative disc disease 3- fashion pain syndrome lumbar paraspinal muscles Postoperative diagnosis=Same as preop Diagnosis . Complication = none Condition= stable Anesthesia= moderate sedation with intravenous Versed 2 mg , and fentanyl 50 micrograms . Indication for the procedure= patient complaining of low back pain , examination was positive for severe tenderness over the sacroiliac joints bilaterally and patient diagnosed with sacroiliitis, for this reason he/ she was good candidate for sacroiliac joint steroid injection. Description of the procedure= procedure risk and benefits discussed with the patient, including but not limited, risk of infection and bleeding, and ALLERGIC reaction to the medication and not complete pain relief and patient agreed with the preceding patient taken to the operating room, placed in prone position or standard monitors applied to the patient then after induction of anesthesia back prepped with chlorhexidine 3 times , Then under strict sterile technique, first I did the right sacroiliac joint the which was identified under fluoroscopy guidance been local infiltration of the skin and subcu interstitial with lidocaine 1% then 22-gauge Quincke Needle advanced slowly under fluoroscopy and placed in the right sacroiliac joint needle placement confirmed with AP and oblique and lateral view and after appropriate needle placement confirmed and after negative aspiration, or heme , then Ropivacaine 0.5% 3 mL, and 40 mg of Depo-Medrol mixed together and injected in the right sacroiliac joint after negative aspiration patient tolerated the procedure well without any complication. Then the left sacroiliac joint steroid injection done under strict sterile technique local infiltration of the skin and subcu interstitial at the location of the left sacroiliac joint then a 22-gauge Quincke Needle advanced slowly under fluoroscopy time placed in the left sacroiliac joint, needle placement confirmed with AP and oblique and lateral view then after appropriate needle placement confirmed and after negative aspiration 0.5% Marcaine 3 mL and 40 mg of Depo-Medrol injected in the left sacroiliac joint after negative aspiration a trigger point injection done under sterile technique, the left 6 trigger point identified in the lumbar paraspinal muscles 3 on the right side and 3 on the left side lumbar paraspinal muscles each one of them injected with ropivacaine 0.5% 2 mL injected at each trigger point after negative aspiration and there was no paresthesia during the injection injection and using 25-gauge needle patient tolerated the procedure well without any complications, she will follow up in the pain clinic in 2 weeks
[2020-11-30 08:42] VITALS: BP 148/86; PULSE 74
--- NOTE | 2020-11-30 08:45 | FL ---
Fluoroscopy HISTORY: Pain 12 seconds fluoroscopy time supplied to the referring clinician. 2 intraoperative C-arm images docum ent the procedure. See dictated report from anesthesia.
== END ==
LOC: ORPAIN 07:14
PROVIDERS: ATTEND Specialist
DX: M46.1 Sacroiliitis, not elsewhere classified (principal); M51.36 Other intervertebral disc degeneration, lumbar region; M79.18 Myalgia, other site; Z88.1 Allergy status to other antibiotic agents; Z88.2 Allergy status to sulfonamides; Z88.8 Allergy status to other drugs, medicaments and biological substances; Z90.710 Acquired absence of both cervix and uterus; Z79.82 Long term (current) use of aspirin
CPT/HCPCS: 20553; J2250; J1030; J3010; J2795; G0260; 99152

== ENCOUNTER 2020-12-25 12:38 | Emergency (ER) | payer MEDICARE ==
[2020-12-25 12:50] VITALS: RESP 18; TEMP 97.9
[2020-12-25] MEDS ORDERED: MORPHINE SULFATE 4 MG/ML SYRINGE IM STA (13:16)
[2020-12-25] MEDS ORDERED: BACITRACIN OINT 1 EACH PACKET TOPICAL ONE (13:28)
[2020-12-25] MEDS ORDERED: ONDANSETRON ODT 4 MG TAB PO STA (14:21)
--- NOTE | 2020-12-25 14:29 | CT ---
EXAMINATION TYPE: CT brain geeine wo con DATE OF EXAM: 12/25/2020 COMPARISON: None available. HISTORY: Fall with pain. CT DLP: 1447.2 mGycm Automated exposure control for dose reduction was used. TECHNIQUE: CT scan of the head and cervical spine are performed without contrast. FINDINGS: There is no acute intracranial hemorrhage, mass effect, or midline shift identified. The ventricles and sulci are within normal limits in size. The globes are intact and the visualized sin uses are clear. Cervical spine is visualized in its entirety from C1 through upper thoracic levels and demonstrates s atisfactory alignment without evidence of acute fracture or dislocation. There is demonstration of C3 -C5 ACDF. There is multilevel moderate to severe cervical spondylosis. Prevertebral soft tissue appea rs within normal limits. The C1-C2 articulation is unremarkable. IMPRESSION: 1. There is no acute fracture or dislocation evident in the cervical spine. 2. No acute intracranial hemorrhage, mass effect, or midline shift is seen.
--- NOTE | 2020-12-25 14:36 | CT ---
EXAMINATION TYPE: CT lumbar spine wo con DATE OF EXAM: 12/25/2020 2:14 PM COMPARISON: CT abdomen 10/10/2020. HISTORY: Fall,, low back pain CT DLP: 791.6 mGycm Automated exposure control for dose reduction was used. Technique: Unenhanced CT of the lumbar spine was performed. Bone and soft tissue window settings are submitted as well as coronal and sagittal reconstructions. Findings: There is demonstration of prior L4-S1 posterior instrument effusion. There are stable moderate T11 an d T12 compression fractures. No definite acute fracture or subluxation. The remaining visualized vert ebral body heights are grossly maintained. There is moderate to severe disc height narrowing at L2-L3 with associated L2 inferior endplate cystic changes versus Schmorl's node. There is no significant soft tissue abnormality. IMPRESSION: No acute abnormality. Prior post surgical changes and chronic T11 and T12 compression fractures.
[2020-12-25] MEDS ORDERED: HYDROmorphone 1 MG/ML 1 ML SYRINGE IM STA (15:45)
--- NOTE | 2020-12-25 16:03 | ED ---
Fall HPI - General Chief Complaint: Fall Stated Complaint: fall Source: patient, EMS Mode of arrival: EMS - History of Present Illness Initial Comments: Patient is a 70-year-old female presents emergency room and after she sustained a fall. Patient states that she lost her balance and fell while outside gardening. Patient fell and hit her head and left knee on cement. Patient was on the ground for a few minutes before she crawled into her apartment to call for EMS. She was originally complaining of left knee and ankle pain. Patient also complains of headache and neck pain. Patient does have chronic low back pain which is exacerbated. She did not take anything for her pain or was given anything by EMS. She arrives and complains of a global headache graded 8 out of 10. No vision changes. No numbness, tingling or weakness in her arms. Denies any hip pain. Left ankle pain has completely resolved. Patient complains of left knee pain with inability to weight-bear. She denies any chest pain or shortness of breath. No thoracic back pain. Patient denies any nausea or vomiting. No other alleviating, precipitating or modifying factors - Related Data Home Medications Medication Instructions Recorded Confirmed Atorvastatin [Lipitor] 40 mg PO DAILY 03/17/18 11/30/20 Omeprazole 40 mg PO DAILY 03/18/19 11/30/20 Venlafaxine HCl [Effexor XR] 225 mg PO DAILY 11/07/19 11/30/20 Cholecalciferol (Vitamin D3) 250 mcg PO Q48H 08/07/20 11/30/20 [Vitamin D3 (5000 Iu)] Cyanocobalamin [Vitamin B-12] 500 mcg PO DAILY 08/07/20 11/30/20 Multivit-Min/FA/Lycopen/Lutein 1 tab PO DAILY 08/07/20 11/30/20 [Centrum Silver Tablet] Ubidecarenone [Co Q-10] 200 mg PO DAILY 08/07/20 11/30/20 Turmeric Root Extract [Turmeric] 1,000 mg PO DAILY 09/03/20 11/30/20 Lisinopril-Hctz 20-12.5 mg 1 tab PO DAILY 10/09/20 11/30/20 [Zestoretic 20-12.5] Folic Acid 0.4 mg PO DAILY 10/28/20 11/30/20 ARIPiprazole [Abilify] 2 mg PO HS 11/30/20 11/30/20 Previous Rx's Medication Instructions Recorded Aspirin 81 mg PO DAILY chew 08/08/20 Diphenox-Atrop 2.5-0.025 mg 1 each PO Q6HR PRN #30 tab 10/15/20 [Lomotil] Famotidine [Pepcid] 20 mg PO BID #60 tab 10/15/20 Gabapentin [Neurontin] 300 mg PO TID #90 cap 11/01/20 HYDROcodone/APAP 10-325MG [[place] 1 tab PO Q8HR PRN 30 Days #90 tab 11/01/20 10-325] HYDROcodone/APAP 10-325MG [[place] 1 tab PO Q8HR PRN 30 Days #90 tab 11/01/20 10-325] Allergies Allergy/AdvReac Type Severity Reaction Status Date / Time Sulfa (Sulfonamide Allergy Severe Rash/Hives Verified 11/30/20 07:40 Antibiotics) Tetracyclines Allergy Severe Rash/Hives Verified 11/30/20 07:40 latex Allergy Rash/Hives Verified 11/30/20 07:40 lorazepam [From Ativan] AdvReac Confusion Verified 11/30/20 07:40 TIDE AND EXTRA LAUNDRY SOAP Allergy Rash/Hives Uncoded 11/30/20 07:40 Review of Systems ROS Statement: Those systems with pertinent positive or pertinent negative responses have been documented in the HPI. ROS Other: All systems not noted in ROS Statement are negative. Past Medical History Past Medical History: Cancer, Fibromyalgia, GERD/Reflux, GI Bleed, Hyperlipidemia, Hypertension, Liver Disease, Osteoarthritis (OA), Rheumatoid Arthritis (RA), Syncope Additional Past Medical History / Comment(s): Past lower GI bleed, diverticulitis, IBS, gastric ulcer, hepatitis A, L breast cancer with surgeries/chemo and radiation, cervical cancer with surgery, bronchitis, osteoporosis, neuropathy bilateral feet and hands, chronic pain, past L humeral fracture, T11 spinal injury, chronic cervical and lumbar back pain, recurrent falls, migraines, osteoarthritis and rheumatoid arthritis in multiple joints History of Any Multi-Drug Resistant Organisms: None Reported Past Surgical History: Section, Hysterectomy, Joint Replacement, Orthopedic Surgery, Tonsillectomy Additional Past Surgical History / Comment(s): ORIF L humerus with carlos/screws since removed, total L shoulder arthroplasty, cervical and lumbar fusions, pain clinic procedures, D&C, bilateral breast reductions with nonhealing wound and had closure/skin grafting, L breast lumpectomies and then L breast mastectomy, R tympanoplasty, EGDs, colonoscopies, ivy fundoplasty, loop recorder. Past Anesthesia/Blood Transfusion Reactions: No Reported Reaction Additional Past Anesthesia/Blood Transfusion Reaction / Comment(s): Pt received blood this admission without reaction. Past Psychological History: Anxiety, Depression, Panic Disorder, PTSD Smoking Status: Former smoker - Past Family History Mother Family Medical History: Myocardial Infarction ([place]) Additional Family Medical History / Comment(s): . General Exam Limitations: no limitations Course Vital Signs 12/25/20 12/25/20 12:47 17:27 Temperature 97.9 F 97.9 F Pulse Rate 83 77 Respiratory 18 18 Rate Blood Pressure 119/88 107/68 O2 Sat by Pulse 97 97 Oximetry Medical Decision Making - Medical Decision Making Upon arrival the patient was placed into room 8. Thorough history and physical exam was performed. Patient was given 4 mg IM of Dilaudid. Patient was sent for a CT of her brain and cervical spine as well as a CT of her lower spine. CT of the brain demonstrates no acute fracture dislocation in the cervical spine. No acute intracranial hemorrhage, mass effect or midline shift. Patient's c- collar is removed. She is sent over for an x-ray of her left knee and tib-fib. It demonstrates a small subtle lucency within the tibial tuberosity questionable for an incomplete fracture. Patient does have point tenderness over this site therefore she is placed in a knee immobilizer and given crutches. Patient has Adrian at home to take for pain control. Patient will be discharged home at this time and is to follow-up with orthopedic in regards to her vehicle tubercle fracture. Patient also is to follow-up with her neurologist and regards to her balance issues that she's had since 2013. She is under the care of Dr. Laguna and does have follow-up appointment with him in the next coming weeks. I recommended an MRI for her balance issues. Patient understood this. She is to follow up with her primary care doctor in 2-4 days. Return for any new or worsening symptoms. Patient was discharged home in stable condition Disposition Clinical Impression: Fall, Tibia fracture, Head injury Disposition: HOME SELF-CARE Condition: Stable Instructions (If sedation given, give patient instructions): Fall Prevention for Older Adults (ED), Head Injury (ED), Avulsion Fracture (ED) Additional Instructions: Please follow-up with orthopedic doctor in regards to your leg fracture within 1 week. Follow up with your neurologist regarding you dizziness. Return to the ED for any new or worsening symptoms. Is patient prescribed a controlled substance at d/c from ED?: No Referrals: Easton Tripathi DO [Primary Care Provider] - 1-2 days Jackson Cha MD [STAFF PHYSICIAN] - 1-2 days Time of Disposition: 16:40
--- NOTE | 2020-12-25 16:05 | XR ---
Result: History: Pain status post fall. Comparison: None available. Technique: 3 views of the left knee. 2 views of the left tibia and fibula. Findings: There is small 3 mm horizontal lucency within the tibial tuberosity. The remaining visualized osseous structures of the left knee, tibia and fibula are in anatomic alignment. The joint spaces are grossl y preserved. There is no significant knee joint effusion. Impression: Subtle small lucency within the tibial tuberosity, questionable for incomplete fracture. Recommend co rrelation with point tenderness and repeat radiographs in 7-10 days for confirmation.
[2020-12-25 17:27] VITALS: BP 107/68; PULSE 77
== END 2020-12-25 17:33 | disposition home or self-care (01) ==
LOC: EC 12:38
DX: S82.152A Displaced fracture of left tibial tuberosity, initial encounter for closed fracture (principal); S09.90XA Unspecified injury of head, initial encounter; M79.7 Fibromyalgia; K21.9 Gastro-esophageal reflux disease without esophagitis; E78.5 Hyperlipidemia, unspecified; M19.90 Unspecified osteoarthritis, unspecified site; M06.9 Rheumatoid arthritis, unspecified; Z85.3 Personal history of malignant neoplasm of breast; F32.9 Major depressive disorder, single episode, unspecified; Z87.891 Personal history of nicotine dependence; W18.30XA Fall on same level, unspecified, initial encounter; Y92.89 Other specified places as the place of occurrence of the external cause
CPT/HCPCS: 73590; 73562; 72125; 72131; 70450; 99284; 96372 ×2; J2270; J1170

== ENCOUNTER → 2021-03-10 | Outpatient (CLI) | payer MEDICARE ==
[2021-03-10 21:14] LABS: Hemoglobin A1C 5.7 % (4.0-6.0)
[2021-03-11 04:03] LABS: % Iron Saturation 27.16 (12.00-45.00); African American GFR (CKD) 102.5 (60.0-200.0); Albumin 4.8 g/dL (3.80-4.90); Albumin/Globulin Ratio 2.18 (1.60-3.17); Anion Gap 13.5 mmol/L (4.00-12.00); BUN/Creat Ratio 24.29 Ratio (12.00-20.00); Calcium 10.7 mg/dL (8.7-10.3); Carbon Dioxide 23.5 mmol/L (21.6-31.8); Globulin 2.2 g/dL (1.6-3.3); Non-African American GFR(CKD) 88.4 (60.0-200.0); Potassium 4.1 mmol/L (3.5-5.5); Total Bilirubin 0.5 mg/dL (0.3-1.2)
== END | disposition home or self-care (01) ==
LOC: LABWHC1 13:26
PROVIDERS: ATTEND Psychiatry & Neurology Pain Medicine
DX: G60.9 Hereditary and idiopathic neuropathy, unspecified (principal); E55.9 Vitamin D deficiency, unspecified; R53.82 Chronic fatigue, unspecified
CPT/HCPCS: 36415; 80053; 82306; 82607; 83036; 83540; 83550; 83655; 83825; 84207; 84439; 84443; 84481

== ENCOUNTER → 2021-05-30 | Outpatient (CLI) | payer MEDICARE | END | disposition home or self-care (01) | LOC: LABWHC1 09:49 | PROVIDERS: ATTEND Psychiatry & Neurology Neurology | DX: Z01.812 Encounter for preprocedural laboratory examination (principal) | CPT/HCPCS: 93005; 36415; U0003; C9803 ==

== ENCOUNTER 2021-09-01 13:55 | Emergency (ER) | payer MEDICARE ==
[2021-09-01 14:08] VITALS: RESP 16
--- NOTE | 2021-09-01 15:41 | XR ---
EXAMINATION TYPE: XR ankle complete RT DATE OF EXAM: 09/01/2021 COMPARISON: NONE HISTORY: Pain TECHNIQUE: Frontal, lateral and oblique images of the right ankle are obtained. COMPARISON: None. FINDINGS: There is avulsion fracture involving the lateral malleolar tip. Associated soft tissue swel ling noted. No additional fractures noted at this time. Ankle mortise is intact. IMPRESSION: There is avulsion fracture involving the lateral malleolar tip.
[2021-09-01] MEDS ORDERED: HYDROmorphone 0.5 MG/0.5 ML SYRINGE IM STA (15:56)
--- NOTE | 2021-09-01 16:39 | CT ---
EXAMINATION TYPE: CT brain cspine wo con CT DLP: 1384.8 mGycm, Automated exposure control for dose reduction was used. DATE OF EXAM: 09/01/2021 4:30 PM COMPARISON: CT brain 12/25/2020 CLINICAL INDICATION:Female, 71 years old with history of fall; TECHNIQUE: Brain: Multiple axial CT images of the brain were obtained without IV contrast. Cspine: Axial CT images from the skull base to the inferior aspect of T2 we obtained without intraven ous contrast. Coronal and sagittal reformatted images were also reviewed. FINDINGS: Brain: Extra-axial spaces: No abnormal extra-axial fluid collections. Ventricular system: Within normal limits Cerebral parenchyma: No acute intraparenchymal hemorrhage or mass effect. The scales-white junction is well differentiated. Cerebellum: Unremarkable. Mass effect: No evidence of midline shift. Intracranial vasculature: Atherosclerotic calcifications of the intracranial vessels. Soft tissues: Normal. Calvarium/osseous structures: No depressed skull fracture. Paranasal sinuses and mastoid air cells: Clear. Visualized orbits: Bilateral aphakia Cervical spine: Fracture: None. Osseous structures: Multilevel degenerative disc disease changes with endplate spurring and disc oste ophyte complex's. Fixation hardware at C3, C4 and C5 is present and stable. Vertebral alignment: There is grade 1 anterolisthesis of C5 on C6 Spinal canal/Neural Foramina: No evidence of significant spinal canal narrowing. Neck soft tissues: Prevertebral soft tissues are within normal limits. Other: The airway is patent. The lung apices are clear. IMPRESSION: 1. No acute intracranial process. 2. No evidence of cervical spine fracture. 3. Mild multilevel degenerative disc disease. 4. Grade 1 anterolisthesis of C5 on C6.
--- NOTE | 2021-09-01 16:58 | ED ---
General Adult HPI - General Chief complaint: Fall Stated complaint: Fall Time Seen by Provider: 09/01/21 15:08 Source: patient, EMS, RN notes reviewed, old records reviewed Mode of arrival: EMS Limitations: no limitations, physical limitation - History of Present Illness Initial comments: 71-year-old presenting status post mechanical fall. Patient was walking, believes she tripped over uneven concrete fell injuring her right ankle. She had immediate pain and swelling noted on the lateral aspect of her right ankle. She did have head trauma without loss consciousness. No anticoagulation. No neck pain. No chest or abdominal pain. No other extremity injuries noted. - Related Data Home Medications Medication Instructions Recorded Confirmed Atorvastatin [Lipitor] 40 mg PO DAILY 03/17/18 06/24/21 Omeprazole 40 mg PO DAILY 03/18/19 06/24/21 Cholecalciferol (Vitamin D3) 250 mcg PO DAILY 08/07/20 06/24/21 [Vitamin D3 (5000 Iu)] Multivit-Min/FA/Lycopen/Lutein 1 tab PO DAILY 08/07/20 06/24/21 [Centrum Silver Tablet] Ubidecarenone [Co Q-10] 200 mg PO DAILY 08/07/20 06/24/21 Turmeric Root Extract [Turmeric] 1,000 mg PO DAILY 09/03/20 06/24/21 ARIPiprazole [Abilify] 2 mg PO HS 11/30/20 06/24/21 Acetaminophen Tab [Tylenol] 325 mg PO Q6H PRN 06/24/21 06/24/21 Diphenox-Atrop 2.5-0.025 mg 1 tab PO QID PRN 06/24/21 06/24/21 [Lomotil] Lidocaine 5% Patch [Lidoderm 5% 1 patch TRANSDERM DAILY 06/24/21 06/24/21 Patch] Venlafaxine HCl [Effexor XR] 75 mg PO DAILY 06/24/21 06/24/21 Previous Rx's Medication Instructions Recorded Aspirin 81 mg PO DAILY chew 08/08/20 Famotidine [Pepcid] 20 mg PO BID #60 tab 10/15/20 HYDROcodone/APAP 10-325MG [[place] 1 tab PO Q8HR PRN 30 Days #90 tab 11/01/20 10-325] Gabapentin [Neurontin] 100 mg PO BID #6 cap 06/27/21 Allergies Allergy/AdvReac Type Severity Reaction Status Date / Time Sulfa (Sulfonamide Allergy Severe Rash/Hives Verified 09/01/21 14:08 Antibiotics) Tetracyclines Allergy Severe Rash/Hives Verified 09/01/21 14:08 latex Allergy Rash/Hives Verified 09/01/21 14:08 lorazepam [From Ativan] AdvReac Confusion Verified 09/01/21 14:08 TIDE AND EXTRA LAUNDRY SOAP Allergy Rash/Hives Uncoded 09/01/21 14:08 Review of Systems ROS Statement: Those systems with pertinent positive or pertinent negative responses have been documented in the HPI. ROS Other: All systems not noted in ROS Statement are negative. Past Medical History Past Medical History: Cancer, Fibromyalgia, GERD/Reflux, GI Bleed, Hyperlipidemia, Hypertension, Liver Disease, Osteoarthritis (OA), Rheumatoid Arthritis (RA), Syncope Additional Past Medical History / Comment(s): Past lower GI bleed, diverticulitis, IBS, gastric ulcer, hepatitis A, L breast cancer with surgeries/chemo and radiation, cervical cancer with surgery, bronchitis, osteoporosis, neuropathy bilateral feet and hands, chronic pain, past L humeral fracture, T11 spinal injury, chronic cervical and lumbar back pain, recurrent falls, migraines, osteoarthritis and rheumatoid arthritis in multiple joints History of Any Multi-Drug Resistant Organisms: None Reported Past Surgical History: Section, Hysterectomy, Joint Replacement, Orthopedic Surgery, Tonsillectomy Additional Past Surgical History / Comment(s): ORIF L humerus with carlos/screws since removed, total L shoulder arthroplasty, cervical and lumbar fusions, pain clinic procedures, D&C, bilateral breast reductions with nonhealing wound and had closure/skin grafting, L breast lumpectomies and then L breast mastectomy, R tympanoplasty, EGDs, colonoscopies, ivy fundoplasty, loop recorder. Past Anesthesia/Blood Transfusion Reactions: No Reported Reaction Additional Past Anesthesia/Blood Transfusion Reaction / Comment(s): Pt received blood this admission without reaction. Past Psychological History: Anxiety, Depression, Panic Disorder, PTSD Smoking Status: Former smoker - Past Family History Mother Family Medical History: Myocardial Infarction ([place]) Additional Family Medical History / Comment(s): . General Exam Limitations: no limitations, physical limitation General appearance: alert, in no apparent distress Head exam: Present: atraumatic, normocephalic Eye exam: Present: normal appearance, PERRL ENT exam: Present: normal exam Neck exam: Present: normal inspection. Absent: tenderness, meningismus Respiratory exam: Present: normal lung sounds bilaterally. Absent: respiratory distress, wheezes Cardiovascular Exam: Present: regular rate, normal rhythm GI/Abdominal exam: Present: soft. Absent: distended, tenderness Extremities exam: Present: normal capillary refill, other (Right lower extremity, she has tenderness over the lateral malleolus with soft tissue swelling. Distal pulses are intact, normal range of motion of the toes, normal sensation.) Course Vital Signs 09/01/21 14:02 Temperature 98.9 F Pulse Rate 78 Respiratory 16 Rate Blood Pressure 140/76 O2 Sat by Pulse 93 L Oximetry Procedures - Orthopedic Splinting/Casting Injury #1 Side: right Lower Extremity Injury Location: ankle Lower Extremity Immobilizer: stirrup splint Medical Decision Making - Medical Decision Making 71-year-old female with mechanical fall, right ankle injury. Patient did have head trauma. Head CT is performed which is negative for intracranial hemorrhage or mass effect. X-ray right ankle shows a distal lateral malleolus fracture. Patient is placed in a splint in the emergency department. She is given orthopedic referral. Disposition Clinical Impression: Fall, Fractured lateral malleolus Disposition: HOME SELF-CARE Condition: Fair Instructions (If sedation given, give patient instructions): Fall Prevention (ED), Ankle Fracture (ED) Is patient prescribed a controlled substance at d/c from ED?: No Referrals: Easton Tripathi DO [Primary Care Provider] - 1-2 days Jackson Cha MD [STAFF PHYSICIAN] - 1-2 days Time of Disposition: 16:57
[2021-09-01 17:15] VITALS: BP 146/69; PULSE 76; TEMP 98.3
== END 2021-09-01 17:05 | disposition home or self-care (01) ==
LOC: EC 13:55
DX: S82.61XA Displaced fracture of lateral malleolus of right fibula, initial encounter for closed fracture (principal); W01.0XXA Fall on same level from slipping, tripping and stumbling without subsequent striking against object, initial encounter; Z79.82 Long term (current) use of aspirin; Z88.1 Allergy status to other antibiotic agents; Z88.2 Allergy status to sulfonamides; Z91.040 Latex allergy status; M79.7 Fibromyalgia; K21.9 Gastro-esophageal reflux disease without esophagitis; E78.5 Hyperlipidemia, unspecified; I10 Essential (primary) hypertension; M06.9 Rheumatoid arthritis, unspecified; Z85.3 Personal history of malignant neoplasm of breast; Z90.710 Acquired absence of both cervix and uterus; Z96.612 Presence of left artificial shoulder joint; F41.9 Anxiety disorder, unspecified; F32.A Depression, unspecified; F43.10 Post-traumatic stress disorder, unspecified; Z87.891 Personal history of nicotine dependence
CPT/HCPCS: 99284; 96372; 29515; 73610; 72125; 70450; J1170

== ENCOUNTER 2022-01-29 15:27 | Observation (INO) | payer MEDICARE ==
[2022-01-29 16:02] LABS: Basophils % (A) 1 %; Eosinophils # (A) 0.1 k/uL (0-0.7); Eosinophils % (A) 2 %; Lymphocytes # (A) 1.2 k/uL (1.0-4.8); Lymphocytes % (A) 18 %; MCH 29.4 pg (25.0-35.0); MCHC 31.6 g/dL (31.0-37.0); Mean Platelet Volume 7.3; Monocytes # (A) 0.2 k/uL (0-1.0); Monocytes % (A) 3 %; Neutrophils # (A) 4.9 k/uL (1.3-7.7); Neutrophils % (A) 74 %; Platelet Count 219 k/uL (150-450); RBC 4.41 m/uL (3.80-5.40); RDW 13.2 % (11.5-15.5); WBC 6.6 k/uL (3.8-10.6)
--- NOTE | 2022-01-29 16:05 | ED ---
General Adult HPI - General Chief complaint: Nausea/Vomiting/Diarrhea Stated complaint: NVD Source: patient, EMS, RN notes reviewed Mode of arrival: EMS Limitations: no limitations - History of Present Illness Initial comments: Patient is a 71-year-old female presents emergency room with complaints of upper abdominal pain and worsening diarrhea ongoing for 4 days and nausea which began earlier today. She reports that she has a history of GI bleeds and colitis and was concerned as she reports one of her chronic diarrhea episodes was tarry in nature. She also reports having one episode of coffee- ground emesis earlier today. She has not had any episodes of emesis since arrival to the emergency department. She denies any chest pain, shortness of breath, dysuria, hematuria, unintentional weight changes, fevers or chills. She denies any known exposure to covid or influenza. In addition to her colitis and CAROL history she has a history past medical history significant for breast cancer, cervical cancer, fibromyalgia, arthritis, hypertension, hyperlipidemia, chronic back and neck pain, anxiety and depression. - Related Data Home Medications Medication Instructions Recorded Confirmed Atorvastatin [Lipitor] 40 mg PO DAILY 03/17/18 06/24/21 Omeprazole 40 mg PO DAILY 03/18/19 06/24/21 Cholecalciferol (Vitamin D3) 250 mcg PO DAILY 08/07/20 06/24/21 [Vitamin D3 (5000 Iu)] Multivit-Min/FA/Lycopen/Lutein 1 tab PO DAILY 08/07/20 06/24/21 [Centrum Silver Tablet] Ubidecarenone [Co Q-10] 200 mg PO DAILY 08/07/20 06/24/21 Turmeric Root Extract [Turmeric] 1,000 mg PO DAILY 09/03/20 06/24/21 ARIPiprazole [Abilify] 2 mg PO HS 11/30/20 06/24/21 Acetaminophen Tab [Tylenol] 325 mg PO Q6H PRN 06/24/21 06/24/21 Diphenox-Atrop 2.5-0.025 mg 1 tab PO QID PRN 06/24/21 06/24/21 [Lomotil] Lidocaine 5% Patch [Lidoderm 5% 1 patch TRANSDERM DAILY 06/24/21 06/24/21 Patch] Venlafaxine HCl [Effexor XR] 75 mg PO DAILY 06/24/21 06/24/21 Previous Rx's Medication Instructions Recorded Aspirin 81 mg PO DAILY chew 08/08/20 Famotidine [Pepcid] 20 mg PO BID #60 tab 10/15/20 HYDROcodone/APAP 10-325MG [[place] 1 tab PO Q8HR PRN 30 Days #90 tab 11/01/20 10-325] Gabapentin [Neurontin] 100 mg PO BID #6 cap 06/27/21 Allergies Allergy/AdvReac Type Severity Reaction Status Date / Time Sulfa (Sulfonamide Allergy Severe Rash/Hives Verified 09/01/21 14:08 Antibiotics) Tetracyclines Allergy Severe Rash/Hives Verified 09/01/21 14:08 latex Allergy Rash/Hives Verified 09/01/21 14:08 lorazepam [From Ativan] AdvReac Confusion Verified 09/01/21 14:08 TIDE AND EXTRA LAUNDRY SOAP Allergy Rash/Hives Uncoded 09/01/21 14:08 Review of Systems ROS Statement: Those systems with pertinent positive or pertinent negative responses have been documented in the HPI. ROS Other: All systems not noted in ROS Statement are negative. Past Medical History Past Medical History: Cancer, Fibromyalgia, GERD/Reflux, GI Bleed, Hyperlip idemia, Hypertension, Liver Disease, Osteoarthritis (OA), Rheumatoid Arthritis (RA), Syncope Additional Past Medical History / Comment(s): Past lower GI bleed, diverticulitis, IBS, gastric ulcer, hepatitis A, L breast cancer with surgeries/chemo and radiation, cervical cancer with surgery, bronchitis, osteoporosis, neuropathy bilateral feet and hands, chronic pain, past L humeral fracture, T11 spinal injury, chronic cervical and lumbar back pain, recurrent falls, migraines, osteoarthritis and rheumatoid arthritis in multiple joints History of Any Multi-Drug Resistant Organisms: None Reported Past Surgical History: Section, Hysterectomy, Joint Replacement, Orthopedic Surgery, Tonsillectomy Additional Past Surgical History / Comment(s): ORIF L humerus with carlos/screws since removed, total L shoulder arthroplasty, cervical and lumbar fusions, pain clinic procedures, D&C, bilateral breast reductions with nonhealing wound and had closure/skin grafting, L breast lumpectomies and then L breast mastectomy, R tympanoplasty, EGDs, colonoscopies, ivy fundoplasty, loop recorder. Past Anesthesia/Blood Transfusion Reactions: No Reported Reaction Additional Past Anesthesia/Blood Transfusion Reaction / Comment(s): Pt received blood this admission without reaction. Past Psychological History: Anxiety, Depression, Panic Disorder, PTSD Smoking Status: Former smoker - Past Family History Mother Family Medical History: Myocardial Infarction ([place]) Additional Family Medical History / Comment(s): . General Exam Limitations: no limitations General appearance: alert, in no apparent distress Head exam: Present: atraumatic, normocephalic, normal inspection Eye exam: Present: normal appearance, PERRL, EOMI. Absent: scleral icterus, conjunctival injection, periorbital swelling ENT exam: Present: normal exam, mucous membranes moist Neck exam: Present: normal inspection. Absent: tenderness, meningismus, lymphadenopathy Respiratory exam: Present: normal lung sounds bilaterally. Absent: respiratory distress, wheezes, rales, rhonchi, stridor Cardiovascular Exam: Present: regular rate, normal rhythm, normal heart sounds. Absent: systolic murmur, diastolic murmur, rubs, gallop, clicks GI/Abdominal exam: Present: soft, tenderness (Bilateral upper quadrants), normal bowel sounds. Absent: distended, guarding, rebound, rigid Rectal exam: Present: normal inspection, normal rectal tone, hemorrhoids (1 external noninflammed). Absent: black stool, bloody stool, fecal impaction, mass, tenderness Extremities exam: Present: normal inspection, full ROM, normal capillary refill. Absent: tenderness, pedal edema, joint swelling, calf tenderness Back exam: Present: normal inspection Neurological exam: Present: alert, oriented X3, CN II-XII intact Psychiatric exam: Present: normal affect, normal mood Skin exam: Present: warm, dry, intact, normal color. Absent: rash Course Vital Signs 01/29/22 01/29/22 15:39 16:46 Temperature 98.2 F Pulse Rate 86 Respiratory 18 Rate Blood Pressure 161/107 157/87 O2 Sat by Pulse 98 Oximetry Medical Decision Making - Medical Decision Making 71-year-old female presents to the emergency room with complaints of worsening chronic diarrhea nausea and vomiting. She reports black tarry stools along with one episode of coffee-ground emesis which have not been witnessed at this time. Will give IV fluids and Zofran. Will check CBC, CMP, influenza, COVID and stool for occult blood. Pending results will order further diagnostic testing versus prepared for transfer to facility with GI services. CBC stable hemoglobin normal, history of vocal blood negative. Will order CT the abdomen and pelvis to evaluate right upper abdominal pain. No current evidence of GI bleed at this time. We'll continue to monitor closely. Patient with continued nausea and vomiting despite Zofran. Will give Compazine incomplete IV fluids. CT of the abdomen shows sigmoid colon colitis evidenced by pseudo-thickening; no obstruction or ileus noted. Continued nausea vomiting and diarrhea despite Compazine and Zofran and IV fluids. Will admit for intractable nausea vomiting diarrhea to continue IV and oral hydration with clear liquid diet. Primary care provider outpatient [facility] which is sounds of issue since. Dr. Pope called and case discussed with him regarding observation admission and accepting admission. Case discussed with Dr. Herrera. - Lab Data Result diagrams: 01/29/22 15:59 01/29/22 15:59 Lab Results 01/29/22 01/29/22 01/29/22 Range/Units 15:59 15:59 15:59 WBC 6.6 (3.8-10.6) k/uL RBC 4.41 (3.80-5.40) m/uL Hgb 13.0 (11.4-16.0) gm/dL Hct 41.0 (34.0-46.0) % MCV 93.0 (80.0-100.0) fL MCH 29.4 (25.0-35.0) pg MCHC 31.6 (31.0-37.0) g/dL RDW 13.2 (11.5-15.5) % Plt Count 219 (150-450) k/uL MPV 7.3 Neutrophils % 74 % Lymphocytes % 18 % Monocytes % 3 % Eosinophils % 2 % Basophils % 1 % Neutrophils # 4.9 (1.3-7.7) k/uL Lymphocytes # 1.2 (1.0-4.8) k/uL Monocytes # 0.2 (0-1.0) k/uL Eosinophils # 0.1 (0-0.7) k/uL Basophils # 0.0 (0-0.2) k/uL PT 10.7 (9.0-12.0) sec INR 1.0 (<1.2) Sodium 142 (137-145) mmol/L Potassium 4.1 (3.5-5.1) mmol/L Chloride 106 (98-107) mmol/L Carbon Dioxide 24 (22-30) mmol/L Anion Gap 12 mmol/L BUN 19 H (7-17) mg/dL Creatinine 0.49 L (0.52-1.04) mg/dL Est GFR (CKD-EPI)AfAm >90 (>60 ml/min/1.73 sqM) Est GFR (CKD-EPI)NonAf >90 (>60 ml/min/1.73 sqM) Glucose 98 (74-99) mg/dL Calcium 9.9 (8.4-10.2) mg/dL Total Bilirubin 0.4 (0.2-1.3) mg/dL AST 24 (14-36) U/L ALT 17 (4-34) U/L Alkaline Phosphatase 146 H (38-126) U/L Total Protein 7.0 (6.3-8.2) g/dL Albumin 4.3 (3.5-5.0) g/dL Stool Occult Blood (Negative) 01/29/22 Range/Units 16:00 WBC (3.8-10.6) k/uL RBC (3.80-5.40) m/uL Hgb (11.4-16.0) gm/dL Hct (34.0-46.0) % MCV (80.0-100.0) fL MCH (25.0-35.0) pg MCHC (31.0-37.0) g/dL RDW (11.5-15.5) % Plt Count (150-450) k/uL MPV Neutrophils % % Lymphocytes % % Monocytes % % Eosinophils % % Basophils % % Neutrophils # (1.3-7.7) k/uL Lymphocytes # (1.0-4.8) k/uL Monocytes # (0-1.0) k/uL Eosinophils # (0-0.7) k/uL Basophils # (0-0.2) k/uL PT (9.0-12.0) sec INR (<1.2) Sodium (137-145) mmol/L Potassium (3.5-5.1) mmol/L Chloride (98-107) mmol/L Carbon Dioxide (22-30) mmol/L Anion Gap mmol/L BUN (7-17) mg/dL Creatinine (0.52-1.04) mg/dL Est GFR (CKD-EPI)AfAm (>60 ml/min/1.73 sqM) Est GFR (CKD-EPI)NonAf (>60 ml/min/1.73 sqM) Glucose (74-99) mg/dL Calcium (8.4-10.2) mg/dL Total Bilirubin (0.2-1.3) mg/dL AST (14-36) U/L ALT (4-34) U/L Alkaline Phosphatase (38-126) U/L Total Protein (6.3-8.2) g/dL Albumin (3.5-5.0) g/dL Stool Occult Blood Negative (Negative) - Radiology Data Radiology results: report reviewed, image reviewed Nondistended sigmoid colon with pseudo-thickening of the wall to correlate for colitis. No evidence of pneumoperitoneum or free fluid. Postsurgical changes of the gastroesophageal junction. No evidence of bowel obstruction. Disposition Clinical Impression: Colitis, Intractable vomiting with nausea Disposition: ADMITTED IP TO THIS [facility] Condition: Stable Is patient prescribed a controlled substance at d/c from ED?: No Referrals: Nonstaff,Physician [REFERRING] - 1-2 days Time of Disposition: 19:26
[2022-01-29] MEDS ORDERED: ONDANSETRON 4 MG/2 ML VIAL IVP STA (16:08)
[2022-01-29 16:09] LABS: Prothrombin Time 10.7 sec (9.0-12.0)
[2022-01-29 16:20] LABS: ALT 17 U/L (4-34); AST 24 U/L (14-36); African American GFR (CKD) >90 (>60 ml/min/1.73 sqM); Albumin 4.3 g/dL (3.5-5.0); Alkaline Phosphatase 146 U/L (38-126); Anion Gap 12 mmol/L; Blood Urea Nitrogen 19 mg/dL (7-17); Calcium 9.9 mg/dL (8.4-10.2); Carbon Dioxide 24 mmol/L (22-30); Chloride 106 mmol/L (98-107); Glucose 98 mg/dL (74-99); Non-African American GFR(CKD) >90 (>60 ml/min/1.73 sqM); Potassium 4.1 mmol/L (3.5-5.1); Sodium 142 mmol/L (137-145); Total Bilirubin 0.4 mg/dL (0.2-1.3)
[2022-01-29] MEDS ORDERED: SODIUM CHLORIDE 0.9% 1,000 ML IV STA (16:46)
[2022-01-29] MEDS ORDERED: HYDROmorphone 1 MG/ML 1 ML SYRINGE IVP STA (16:58)
--- NOTE | 2022-01-29 18:02 | CT ---
EXAMINATION TYPE: CT abdomen pelvis w con CT DLP: 940 mGycm, Automated exposure control for dose reduction was used. DATE OF EXAM: 01/29/2022 5:36 PM COMPARISON: CT abdomen pelvis most recent from 10/10/2020 CLINICAL INDICATION:Female, 71 years old with history of abdominal pain N/V/D; abdominal pain N/V/D TECHNIQUE: Axial CT of the abdomen and pelvis. Sagittal and coronal reformats were created on a [employer] workstation. Contrast used:100 mL of Isovue 300 with IV Contrast, Oral contrast used: without Oral Contrast FINDINGS: LOWER CHEST: Loop recorder are present in the left chest wall. Persistent elevation of the left yojana diaphragm. ABDOMEN LIVER: Unremarkable GALLBLADDER AND BILE DUCTS: Unremarkable. PANCREAS: Unremarkable. SPLEEN: Unremarkable. ADRENAL GLANDS: Unremarkable. KIDNEYS AND URETERS: No evidence of hydronephrosis or renal calculus. Probable bilateral renal cysts. PELVIS BLADDER: Unremarkable REPRODUCTIVE: Unremarkable. ABDOMEN & PELVIS STOMACH AND BOWEL: Small hiatal hernia, duodenum is unremarkable. Circumferential thickening of the s igmoid colon likely secondary to underdistention. There are scattered clonic diverticula with gamino m easuring up to 6 mm. No evidence of bowel obstruction. Appendix is normal. PERITONEUM: No evidence of pneumoperitoneum or free fluid. Post surgical changes of the gastroesophag eal junction. VASCULATURE: Mild atherosclerotic calcifications are present throughout the abdominal aorta and its b ranches. No evidence of aortic aneurysm. MUSCULOSKELETAL: No acute osseous abnormalities, post surgical changes to L4 L5 S1 hardware appears i ntact. L2 vertebroplasty changes are noted. Compression deformity of T11 unchanged from prior. LYMPH NODES: No gross evidence for lymphadenopathy. SOFT TISSUE/ABDOMINAL WALL: Stimulator device seen within the left anterior subcutaneous tissues. Candie ds terminate within the spine. IMPRESSION: 1. Nondistended sigmoid colon with pseudothickening of the gamino correlate for colitis. No additiona l finding within the abdomen or pelvis to correlate patient's symptomology. 2. Suspected postsurgical changes of the gastroesophageal junction with persistent small hiatal rey ia.
[2022-01-29] MEDS ORDERED: PROCHLORPERAZINE INJ 10 MG/2 ML VIAL IVP STA (18:11)
[2022-01-29] MEDS ORDERED: NALOXONE 0.4 MG/ML 1 ML VIAL IV PRN (19:27)
[2022-01-29] MEDS ORDERED: PROMETHAZINE 25 MG TAB PO PRN (19:27)
[2022-01-29] MEDS: HYDROmorphone 1 MG/ML 1 ML SYRINGE IVP PRN (21:47)
[2022-01-29] MEDS: SODIUM CHLORIDE 0.9% 1,000 ML IV SCH (21:48)
[2022-01-29] MEDS ORDERED: HYDROcodone/APAP 10-325MG 1 EACH TAB PO PRN (22:36)
--- NOTE | 2022-01-29 22:36 | P.HPIM ---
History of Present Illness H&P Date: 01/29/22 The patient is a 61-year-old female with a PMH of multiple bouts of colitis, hypertension, and hyper lipidemia presented to the emergency room with multiple abdominal complaints. The patient reports that over the past 3-4 days, she has had gradually worsening diarrhea she notes however that today she began having vomiting with a single episode of coffee-ground emesis which alarmed her and prompted her to come to the emergency room. She also reports diffuse mild abdominal discomfort, unable to characterize. Denies experiencing hematochezia or melena, fever, chills, urinary complaints, chest pain, shortness of breath. CT abdomen and pelvis in the emergency room was remarkable for colitis. Stool occult blood testing was negative. Review of systems: Pertinent positives and negatives as discussed in HPI, a complete review of systems was performed and all other systems are negative. Physical examination: General: non toxic, no distress, appears at stated age, normal weight Derm: no unusual rashes/lesions, warm Head: atraumatic, normocephalic, symmetric Eyes: EOMI, no lid lag, anicteric sclera, pupils equal round reactive to light ENT: Nose and ears atraumatic Neck: No cervical lymphadenopathy, trachea midline, supple Mouth: no lip lesion, mucus membranes moist Cardiovascular: S1S2 reg, no murmur, positive dorsalis pedis pulse bilateral, no edema Lungs: CTA bilateral, no rhonchi, no rales, no accessory muscle use Abdominal: soft, mild diffuse tenderness, no guarding Ext: muscle strength 5 out of 5 in all 4 extremities grossly, no gross muscle atrophy, no contractures, Neuro: CN II-XI grossly intact, no gross focal neuro deficits Psych: Alert, oriented, appropriate affect Assessment/plan Uncomplicated colitis -Continue with conservative management for now with IV fluids and antiemetics -Pain control -Clear liquid diet -IV fluids Chronic conditions: Hypertension, hyperlipidemia -Continue with home meds -Hold home diuretics DVT prophylaxis -Heparin subcu The patient is admitted with an anticipated less than 2 midnight stay for evaluation of colitis. CODE STATUS: Full Code Discussed with: Patient Anticipated discharge date: in am Anticipated discharge place: Home Past Medical History Past Medical History: Cancer, Fibromyalgia, GERD/Reflux, GI Bleed, Hyperlipidemia, Hypertension, Liver Disease, Osteoarthritis (OA), Rheumatoid Arthritis (RA), Syncope Additional Past Medical History / Comment(s): Past lower GI bleed, diverticulitis, IBS, gastric ulcer, hepatitis A, L breast cancer with s urgeries/chemo and radiation, cervical cancer with surgery, bronchitis, osteoporosis, neuropathy bilateral feet and hands, chronic pain, past L humeral fracture, T11 spinal injury, chronic cervical and lumbar back pain, recurrent falls, migraines, osteoarthritis and rheumatoid arthritis in multiple joints History of Any Multi-Drug Resistant Organisms: None Reported Past Surgical History: Section, Hysterectomy, Joint Replacement, Orthopedic Surgery, Tonsillectomy Additional Past Surgical History / Comment(s): ORIF L humerus with carlos/screws since removed, total L shoulder arthroplasty, cervical and lumbar fusions, pain clinic procedures, D&C, bilateral breast reductions with nonhealing wound and had closure/skin grafting, L breast lumpectomies and then L breast mastectomy, R tympanoplasty, EGDs, colonoscopies, ivy fundoplasty, loop recorder. Past Anesthesia/Blood Transfusion Reactions: No Reported Reaction Additional Past Anesthesia/Blood Transfusion Reaction / Comment(s): Pt received blood this admission without reaction. Past Psychological History: Anxiety, Depression, Panic Disorder, PTSD Smoking Status: Former smoker - Past Family History Mother Family Medical History: Myocardial Infarction ([place]) Additional Family Medical History / Comment(s): . Medications and Allergies Home Medications Medication Instructions Recorded Confirmed Type Atorvastatin [Lipitor] 40 mg PO HS 03/17/18 01/29/22 History HYDROcodone/APAP 10-325MG [[place] 1 tab PO Q8HR PRN 30 Days #90 tab 11/01/20 01/29/22 Rx 10-325] Diphenox-Atrop 2.5-0.025 mg 1 tab PO QID PRN 06/24/21 01/29/22 History [Lomotil] ARIPiprazole [Abilify] 5 mg PO HS 01/29/22 01/29/22 History Famotidine [Pepcid] 20 mg PO HS PRN 01/29/22 01/29/22 History Gabapentin [Neurontin] 300 mg PO TID 01/29/22 01/29/22 History Lisinopril-Hctz 20-12.5 mg 1 tab PO DAILY 01/29/22 01/29/22 History [Zestoretic 20-12.5] Omeprazole Magnesium [PriLOSEC OTC] 20 mg PO DAILY 01/29/22 01/29/22 History Ondansetron Odt [Zofran ODT] 4 - 8 mg PO TID PRN 01/29/22 01/29/22 History Venlafaxine HCl 75 mg PO DAILY 01/29/22 01/29/22 History Venlafaxine HCl ER [Effexor Xr] 150 mg PO DAILY 01/29/22 01/29/22 History Allergies Allergy/AdvReac Type Severity Reaction Status Date / Time Sulfa (Sulfonamide Allergy Severe Rash/Hives Verified 01/29/22 21:55 Antibiotics) Tetracyclines Allergy Severe Rash/Hives Verified 01/29/22 21:55 latex Allergy Rash/Hives Verified 01/29/22 21:55 lorazepam [From Ativan] AdvReac Confusion Verified 01/29/22 21:55 TIDE AND EXTRA LAUNDRY SOAP Allergy Rash/Hives Uncoded 09/01/21 14:08 Physical Exam Vitals: Vital Signs Temp Pulse Resp BP Pulse Ox 01/29/22 16:46 157/87 01/29/22 15:39 98.2 F 86 18 161/107 98 Intake and Output 01/29/22 01/29/22 01/29/22 06:59 14:59 22:59 Other: Weight 65.771 kg Results CBC & Chem 7: 01/29/22 15:59 01/29/22 15:59 Labs: Abnormal Lab Results - Last 24 Hours (Table) 01/29/22 Range/Units 15:59 BUN 19 H (7-17) mg/dL Creatinine 0.49 L (0.52-1.04) mg/dL Alkaline Phosphatase 146 H (38-126) U/L
[2022-01-30] MEDS: HEPARIN SODIUM,PORCINE/PF 5,000 UNIT/0.5 ML SYRINGE SQ SCH ×3 (00:15→17:55)
[2022-01-30] MEDS: ONDANSETRON 4 MG/2 ML VIAL IVP PRN ×2 (04:33→20:16)
[2022-01-30] MEDS: HYDROmorphone 1 MG/ML 1 ML SYRINGE IVP PRN ×3 (04:38→18:20)
[2022-01-30] MEDS: SODIUM CHLORIDE 0.9% 1,000 ML IV SCH (09:16)
[2022-01-30 13:00] LABS: Appearance,Urine Clear (Clear); Bilirubin,Urine Negative (Negative); Blood,Urine Negative (Negative); Color,Urine Light Yellow; Glucose,Urine (UA) Negative (Negative); Ketones,Urine Negative (Negative); Leukocyte Esterase,Urine Negative (Negative); Nitrite,Urine Negative (Negative); PH, Urine 5.5 (5.0-8.0); Protein,Urine Negative (Negative); Specific Gravity,Urine 1.007 (1.001-1.035); Urobilinogen,Urine <2.0 mg/dL (<2.0)
--- NOTE | 2022-01-30 17:41 | P.PN ---
Subjective Progress Note Date: 01/30/22 Hospital course: Patient is a 72-year-old female with a past medical history of hypertension, hyperlipidemia, and recurrent bouts of colitis. She presented to the emergency department on 01/29/22 with a chief complaint of abdominal pain. Patient reported over the past 3-4 days she had been experiencing intermittently worsening episodes of abdominal pain/cramping accompanied by diarrhea, nausea and a single episode of coffee-ground emesis. She underwent full evaluation in the emergency department. CBC unremarkable with hemoglobin of 13.0, coags normal findings, and CMP also unremarkable with the exception of elevated alkaline phosphatase of 146. Urinalysis was negative for infection. CT abdomen and pelvis revealing nondistended sigmoid colon with pseudo-thickening of the gamino correlating for colitis. Patient was started on clear liquid diet and admitted under our services. Physical exam: Patient seen and fully evaluated at bedside. She reports improvement in pre viously reported abdominal pain and diarrhea. Patient is tolerating clear liquid diet and has had no further episodes of nausea or vomiting. We will advance diet later this afternoon to low-fat diet and monitor overnight if patient tolerates plan for discharge home tomorrow morning and follow up o utpatient with gastroenterology. Vital signs reviewed and stable. General: Nontoxic, no distress and appears stated age. Derm: Skin warm and dry, normal coloration for ethnicity. Head: Atraumatic, normocephalic and symmetric. Eyes: EOMs intact, no lid lag, and anicteric sclera Mouth: no lip lesions, mucus membranes moist Cardiovascular: regular rate and rhythm with normal S1S2, no murmur, positive posterior tibial pulses bilaterally, and cap refill < 2 seconds. Lungs: Respirations even, regular, and unlabored on room air. Lungs CTA bilaterally, no rhonchi, no rales, no wheezing, and no accessory muscle usage. Abdominal: soft, nontender to palpation, no guarding, no appreciable orga nomegaly. Patient has implant left lower quadrant (patient reports pain pump) Ext: ROM intact. No gross muscle atrophy, no edema, no contractures Neuro: Speech clear, face symmetrical and CN II-XII grossly intact with no noted focal neuro deficits Psych: Alert and oriented to person, place, time, and situation. Appropriate and pleasant affect. Assessment and Plan of Care: Uncomplicated colitis -Continue with conservative management for now with IV fluids and antiemetics -Pain control -Clear liquid diet advance to low fat diet as patient tolerates. -IV fluids were given. Hypertension -Monitor vital signs and continue daily medication regimen with lisinopril. Hyperlipidemia -Continue daily medication regimen with atorvastatin. CODE STATUS: Full code DVT prophylaxis: Heparin Discussed with: Patient and RN Anticipated discharge date: Tomorrow morning Anticipated discharge place: Home A total of 31 minutes was spent on the care of this complex patient more than 50% of the time was spent in counseling and care coordination. I reviewed the documentation as provided by the TYE above, who is the original author of this note. I agree with the documented assessment and plan, with the following changes: none Objective - Vital Signs Vital signs: Vital Signs Temp 97.8 F 01/30/22 06:00 Pulse 67 01/30/22 06:00 Resp 19 01/30/22 06:00 BP 141/94 01/30/22 06:00 Pulse Ox 100 01/30/22 06:00 FiO2 Intake & Output 01/29/22 01/30/22 01/30/22 18:59 06:59 18:59 Weight 65.771 kg - Labs CBC & Chem 7: 01/29/22 15:59 01/29/22 15:59 Labs: Abnormal Lab Results - Last 24 Hours (Table) 01/29/22 Range/Units 15:59 BUN 19 H (7-17) mg/dL Creatinine 0.49 L (0.52-1.04) mg/dL Alkaline Phosphatase 146 H (38-126) U/L
[2022-01-30] MEDS: LISINOPRIL-HCTZ 20-12.5 MG 1 EACH TAB PO SCH (18:21)
[2022-01-30] MEDS ORDERED: ATORVASTATIN 40 MG TAB PO SCH (21:00)
[2022-01-30] MEDS ORDERED: ARIPiprazole 5 MG TAB PO SCH (21:00)
[2022-01-31] MEDS: HEPARIN SODIUM,PORCINE/PF 5,000 UNIT/0.5 ML SYRINGE SQ SCH ×2 (01:07→08:30)
[2022-01-31] MEDS: HYDROmorphone 1 MG/ML 1 ML SYRINGE IVP PRN ×3 (01:07→14:49)
[2022-01-31 07:38] VITALS: RESP 16
[2022-01-31] MEDS: ONDANSETRON 4 MG/2 ML VIAL IVP PRN ×2 (08:25→14:49)
[2022-01-31] MEDS: LISINOPRIL-HCTZ 20-12.5 MG 1 EACH TAB PO SCH (08:30)
[2022-01-31 09:09] LABS: HCT 33.1 % (37.2-46.3); HGB 10.4 g/dL (12.0-15.0); MCH 29.8 pg (27.0-32.0); MCHC 31.4 g/dL (32.0-37.0); MCV 94.8 fL (80.0-97.0); Mean Platelet Volume 11.2 fL (9.5-12.2); NRBC Per 100 WBC 0 /100 WBCS (0.0-0.0); Platelet Count 161 X 10*3/uL (140-440); RBC 3.49 X 10*6/uL (4.10-5.20); RDW 13.1 % (11.5-14.5); WBC 4.68 X 10*3/uL (4.50-10.00)
[2022-01-31 09:20] LABS: African American GFR (CKD) 101.7 (60.0-200.0); Albumin 3.6 g/dL (3.8-4.9); Albumin/Globulin Ratio 1.89 (1.60-3.17); Anion Gap 11.5 mmol/L (10.00-18.00); BUN/Creat Ratio 16.14 Ratio (12.00-20.00); Blood Urea Nitrogen 11.3 mg/dL (9.0-27.0); Calcium 9.7 mg/dL (8.7-10.3); Carbon Dioxide 23.5 mmol/L (20.0-27.5); Globulin 1.9 g/dL (1.6-3.3); Magnesium 1.8 mg/dL (1.5-2.4); Non-African American GFR(CKD) 87.8 (60.0-200.0); Potassium 3.5 mmol/L (3.5-5.5); Total Bilirubin 0.3 mg/dL (0.30-1.20); Total Protein 5.5 g/dL (6.2-8.2)
--- NOTE | 2022-01-31 10:27 | P.DS ---
Providers Date of admission: 01/29/22 19:08 Expected date of discharge: 01/31/22 Attending physician: Rivas Pope MD Primary care physician: Jacquie Collins [facility] Course: Discharge Diagnosis: Uncomplicated colitis, CT abdomen and pelvis revealing nondistended sigmoid colon with pseudo-thickening of the gamino correlating for colitis. Pt was placed on clear liquid diet for bowel rest. Nausea, vomiting, abdominal pain and diarrhea resolved and diet was advanced to low fat diet and pt tolerated well with no further episodes of abdominal pain, nausea, vomiting, or diarrhea. Pt stable for discharge and it was recommended that she follow up with grinder operator automatic, Dr. Tony in 2 weeks for follow up and outpatient scheduling of colonoscopy and endoscopy. Hypertension. Monitor vital signs and continue daily medication regimen with lisinopril. Hyperlipidemia. Continue daily medication regimen with atorvastatin. Hospital Course: Patient is a 72-year-old female with a past medical history of hypertension, hyperlipidemia, and recurrent bouts of colitis. She presented to the emergency department on 01/29/22 with a chief complaint of abdominal pain. Patient reported over the past 3-4 days she had been experiencing intermittently worsening episodes of abdominal pain/cramping accompanied by diarrhea, nausea and a single episode of coffee-ground emesis. She underwent full evaluation in the emergency department. CBC unremarkable with hemoglobin of 13.0, coags normal findings, and CMP also unremarkable with the exception of elevated a lkaline phosphatase of 146. Urinalysis was negative for infection. CT abdomen and pelvis revealing nondistended sigmoid colon with pseudo-thickening of the gamino correlating for colitis. Patient was started on clear liquid diet and admitted under our services. Pt reported full resolution of nausea, vomiting, abdominal pain and diarrhea. Her diet was then advanced to low fat diet and pt tolerated well with no further episodes of abdominal pain, nausea, vomiting, or diarrhea. Pt stable for discharge and it was recommended that she follow up with gr[facility] operator [employer], Dr. Tony in 2 weeks for follow up and outpatient scheduling of colonoscopy and endoscopy. Physical exam: Vital signs reviewed and stable. General: Nontoxic, no distress and appears stated age. Derm: Skin warm and dry, normal coloration for ethnicity. Head: Atraumatic, normocephalic and symmetric. Eyes: EOMs intact, no lid lag, and anicteric sclera Mouth: no lip lesions, mucus membranes moist Cardiovascular: regular rate and rhythm with normal S1S2, no murmur, positive posterior tibial pulses bilaterally, and cap refill < 2 seconds. Lungs: Respirations even, regular, and unlabored on room air. Lungs CTA bilaterally, no rhonchi, no rales, no wheezing, and no accessory muscle usage. Abdominal: soft, nontender to palpation, no guarding, no appreciable organomegaly. Patient has implant left lower quadrant (patient reports pain pump) Ext: ROM intact. No gross muscle atrophy, no edema, no contractures Neuro: Speech clear, face symmetrical and CN II-XII grossly intact with no noted focal neuro deficits Psych: Alert and oriented to person, place, time, and situation. Appropriate and pleasant affect. A total of 36 minutes of time were spent preparing this complex discharge summary. Pt was discharged on 01/31/22 at 10:22 AM. I reviewed the documentation as provided by the TYE above, who is the original author of this note. I agree with the documented assessment and plan, with the following changes: none Patient Condition at Discharge: Stable Plan - Discharge Summary Discharge Rx Participant: No New Discharge Prescriptions: New Promethazine [Phenergan] 12.5 mg PO Q6HR PRN #30 tab PRN Reason: Nausea And Vomiting Continue Atorvastatin [Lipitor] 40 mg PO HS Lisinopril-Hctz 20-12.5 mg [Zestoretic 20-12.5] 1 tab PO DAILY Gabapentin [Neurontin] 300 mg PO TID Venlafaxine HCl ER [Effexor XR] 150 mg PO DAILY Venlafaxine HCl 75 mg PO DAILY Famotidine [Pepcid] 20 mg PO HS PRN PRN Reason: GERDS ARIPiprazole [Abilify] 5 mg PO HS Omeprazole Magnesium [PriLOSEC OTC] 20 mg PO DAILY HYDROcodone/APAP 10-325MG [[place]om[place] 10-325] 1 tab PO Q8HR PRN 30 Days #90 tab PRN Reason: Pain Ondansetron Odt [Zofran ODT] 4 - 8 mg PO TID PRN PRN Reason: Nausea No Action Diphenox-Atrop 2.5-0.025 mg [Lomotil] 1 tab PO QID PRN PRN Reason: Diarrhea Discharge Medication List Atorvastatin [Lipitor] 40 mg PO HS 03/17/18 [History] HYDROcodone/APAP 10-325MG [[place] 10-325] 1 tab PO Q8HR PRN 30 Days #90 tab 11/01/20 [Rx] Diphenox-Atrop 2.5-0.025 mg [Lomotil] 1 tab PO QID PRN 06/24/21 [History] ARIPiprazole [Abilify] 5 mg PO HS 01/29/22 [History] Famotidine [Pepcid] 20 mg PO HS PRN 01/29/22 [History] Gabapentin [Neurontin] 300 mg PO TID 01/29/22 [History] Lisinopril-Hctz 20-12.5 mg [Zestoretic 20-12.5] 1 tab PO DAILY 01/29/22 [Histor y] Omeprazole Magnesium [PriLOSEC OTC] 20 mg PO DAILY 01/29/22 [History] Ondansetron Odt [Zofran ODT] 4 - 8 mg PO TID PRN 01/29/22 [History] Venlafaxine HCl 75 mg PO DAILY 01/29/22 [History] Venlafaxine HCl ER [Effexor XR] 150 mg PO DAILY 01/29/22 [History] Promethazine [Phenergan] 12.5 mg PO Q6HR PRN #30 tab 01/31/22 [Rx] Follow up Appointment(s)/Referral(s): Annette Tony MD [STAFF PHYSICIAN] - 03/21/22 2:00 pm Jonny Nettles [STAFF PHYSICIAN] - 1-2 Days Patient Instructions/Handouts: Colitis (ED) Activity/Diet/Wound Care/Special Instructions: Activity: As tolerated. Take breaks as needed. Diet: Heart healthy and low fat diet. Special Instructions: Take all of your medications as directed and remember to keep all of your doctor's appointments and follow-up as needed. I understand you have been using Lomotil at home as needed for diarrhea, this medication can be dangerous if used incorrectly and can lead to bowel obstruction. Please be cautious in using this medication sparingly. Thank you for allowing us to participate in your care, it was truly a pleasure having you for our patient!!! Discharge Disposition: HOME SELF-CARE
[2022-01-31 13:11] VITALS: BP 143/82; PULSE 66; TEMP 98.3
== END 2022-01-31 15:42 | disposition home or self-care (01) ==
LOC: EC 15:27 → 6NMEDSUR 19:08
PROVIDERS: ADMIT Internal Medicine; ATTEND Internal Medicine
DX: K52.9 Noninfective gastroenteritis and colitis, unspecified (principal); I10 Essential (primary) hypertension; E78.5 Hyperlipidemia, unspecified; M79.7 Fibromyalgia; F32.A Depression, unspecified; F41.0 Panic disorder [episodic paroxysmal anxiety]; F43.10 Post-traumatic stress disorder, unspecified; B15.9 Hepatitis A without hepatic coma; M81.0 Age-related osteoporosis without current pathological fracture; M06.9 Rheumatoid arthritis, unspecified; K58.9 Irritable bowel syndrome, unspecified; G62.9 Polyneuropathy, unspecified; K44.9 Diaphragmatic hernia without obstruction or gangrene; M48.54XA Collapsed vertebra, not elsewhere classified, thoracic region, initial encounter for fracture; I70.0 Atherosclerosis of aorta; Z85.41 Personal history of malignant neoplasm of cervix uteri; Z85.3 Personal history of malignant neoplasm of breast; Z79.899 Other long term (current) drug therapy; Z79.82 Long term (current) use of aspirin; Z88.2 Allergy status to sulfonamides; Z88.1 Allergy status to other antibiotic agents; Z91.040 Latex allergy status; Z90.710 Acquired absence of both cervix and uterus; Z87.891 Personal history of nicotine dependence; Z90.12 Acquired absence of left breast and nipple; Z96.612 Presence of left artificial shoulder joint; Z98.1 Arthrodesis status; Z92.21 Personal history of antineoplastic chemotherapy; Z92.3 Personal history of irradiation; Z82.49 Family history of ischemic heart disease and other diseases of the circulatory system
CPT/HCPCS: 96361 ×3; 96372 ×3; 96376 ×4; 96374; 96375; 99285; 36415; 86900; 86901; 80053 ×2; 83735; 85025; 85027; 85610; 86850; 82272; 81003; 74177; G0378 ×3; J0780; J2405 ×3; J1170 ×3; Q9967; J1644 ×2

== ENCOUNTER 2022-02-14 17:07 | Emergency (ER) | payer MEDICARE ==
[2022-02-14] MEDS ORDERED: SODIUM CHLORIDE 0.9% 1,000 ML IV STA (17:27)
[2022-02-14] MEDS ORDERED: PANTOPRAZOLE 40 MG/10 ML VIAL IVP STA (17:27)
[2022-02-14] MEDS ORDERED: ONDANSETRON 4 MG/2 ML VIAL IVP STA (17:29)
--- NOTE | 2022-02-14 17:33 | ED ---
General Adult HPI - General Chief complaint: Abdominal Pain Stated complaint: vomiting blood Time Seen by Provider: 02/14/22 17:11 Source: patient Mode of arrival: EMS Limitations: no limitations - History of Present Illness Initial comments: Dictation was produced using [employer] dictation software. please excuse any grammatical, word or spelling errors. Chief Complaint: 72-year-old female presents to the emergency department for coffee-ground emesis History of Present Illness: Is a 72-year-old female she has past medical history of GI bleed for the last 24 hours she's been having coffee-ground emesis. Patient has history of GI bleed, diverticulitis. She does feel slightly lightheaded. She also complains of diffuse abdominal pain. Chart review was performed showing the patient had had multiple endoscopies in the past and upper GI ulcer. The ROS documented in this emergency department record has been reviewed and confirmed by me. Those systems with pertinent positive or negative responses have been documented in the HPI. All other systems are other negative and/or noncontributory. PHYSICAL EXAM: General Impression: Alert and oriented x3, not in acute distress HEENT: Normocephalic atraumatic, extra-ocular movements intact, pupils equal and reactive to light bilaterally, mucous membranes moist, coffee-ground residue in the tongue Cardiovascular: Heart regular rate and rhythm Chest: Able to complete full sentences, no retractions, no tachypnea Abdomen: abdomen soft, diffuse palpable tenderness, non-distended, no organomegaly Musculoskeletal: Pulses present and equal in all extremities, no peripheral khanh a Motor: no focal deficits noted Neurological: CN II-XII grossly intact, no focal motor or sensory deficits noted Skin: Intact with no visualized rashes Psych: Normal affect and mood ED course: 72 yo female with multiple comorbidities as the emergency department for coffee-ground emesis. Patient's history of upper GI bleed. She has history of upper GI ulcers on previous endoscopies. Patient does not take any anticoagulation medications. Vital signs upon arrival shows heart rate of 116, worse vital acceptable limits. Laboratory evaluation obtained mild leukocytosis of 14.3. Rule out stable at 14.6 per coag panel negative. Metabolic panel shows elevated BUN concerning for dehydration. Lactic acidosis of 3.4. Computed tomography scan of the abdomen and pelvis shows no acute processes. We do not have GI coverage until the second week of February. Patient reevaluated at bedside at 6:40 PM found to be in stable medical condition. Patient given Protonix IV fluids. She is not h aving any further hematemesis at the bedside. Patient be transferred to [facility]. Accepting physician is Dr. So. EKG interpretation: Ventricular rate 113, sinus tachycardia,. 144, Q state QTC 390. No HI prolongation, no QTC prolongation, no ST or T-wave changes noted. Overall, this EKG is unremarkable - Related Data Home Medications Medication Instructions Recorded Confirmed Atorvastatin [Lipitor] 40 mg PO HS 03/17/18 02/14/22 Diphenox-Atrop 2.5-0.025 mg 1 tab PO QID PRN 06/24/21 02/14/22 [Lomotil] ARIPiprazole [Abilify] 5 mg PO HS 01/29/22 02/14/22 Famotidine [Pepcid] 20 mg PO HS PRN 01/29/22 02/14/22 Gabapentin [Neurontin] 300 mg PO TID 01/29/22 02/14/22 Lisinopril-Hctz 20-12.5 mg 1 tab PO DAILY 01/29/22 02/14/22 [Zestoretic 20-12.5] Omeprazole Magnesium [PriLOSEC OTC] 20 mg PO DAILY 01/29/22 02/14/22 Ondansetron Odt [Zofran ODT] 4 - 8 mg PO TID PRN 01/29/22 02/14/22 Venlafaxine HCl 75 mg PO DAILY 01/29/22 02/14/22 Venlafaxine HCl ER [Effexor XR] 150 mg PO DAILY 01/29/22 02/14/22 Previous Rx's Medication Instructions Recorded HYDROcodone/APAP 10-325MG [[place] 1 tab PO Q8HR PRN 30 Days #90 tab 11/01/20 10-325] Promethazine [Phenergan] 12.5 mg PO Q6HR PRN #30 tab 01/31/22 Allergies Allergy/AdvReac Type Severity Reaction Status Date / Time Sulfa (Sulfonamide Allergy Severe Rash/Hives Verified 02/14/22 18:28 Antibiotics) Tetracyclines Allergy Severe Rash/Hives Verified 02/14/22 18:28 latex Allergy Rash/Hives Verified 02/14/22 18:28 lorazepam [From Ativan] AdvReac Confusion Verified 02/14/22 18:28 TIDE AND EXTRA LAUNDRY SOAP Allergy Rash/Hives Uncoded 02/14/22 18:28 Review of Systems ROS Statement: Those systems with pertinent positive or pertinent negative responses have been documented in the HPI. ROS Other: All systems not noted in ROS Statement are negative. Past Medical History Past Medical History: Cancer, Fibromyalgia, GERD/Reflux, GI Bleed, Hyperlipidemia, Hypertension, Liver Disease, Osteoarthritis (OA), Rheumatoid Arthritis (RA), Syncope Additional Past Medical History / Comment(s): Past lower GI bleed, diverticulitis, colitis, IBS, gastric ulcer, hepatitis A, L breast cancer with surgeries/chemo and radiation, cervical cancer with surgery, bronchitis, osteoporosis, neuropathy bilateral feet and hands, chronic pain, past L humeral fracture, T11 spinal injury, chronic cervical and lumbar back pain, migraines, osteoarthritis and rheumatoid arthritis in multiple joints. past drug and etoh abuse- per ptclear for 26 years. History of Any Multi-Drug Resistant Organisms: None Reported Past Surgical History: Section, Hysterectomy, Joint Replacement, Orthopedic Surgery, Tonsillectomy Additional Past Surgical History / Comment(s): ORIF L humerus with carlos/screws since removed, total L shoulder arthroplasty, cervical and lumbar fusions, pain clinic procedures, D&C, bilateral breast reductions with nonhealing wound and had closure/skin grafting, L breast lumpectomies and then L breast mastectomy, R tympanoplasty, EGDs, colonoscopies, ivy fundoplasty, loop recorder. pain pump in left lower abd. Past Anesthesia/Blood Transfusion Reactions: No Reported Reaction Additional Past Anesthesia/Blood Transfusion Reaction / Comment(s): Pt received blood this admission without reaction. Past Psychological History: Anxiety, Depression, Panic Disorder, PTSD Smoking Status: Former smoker Past Alcohol Use History: None Reported Past Drug Use History: None Reported - Past Family History Mother Family Medical History: Myocardial Infarction ([place]) Additional Family Medical History / Comment(s): . General Exam Limitations: no limitations Course Vital Signs 02/14/22 02/14/22 02/14/22 17:14 17:21 18:28 Temperature 98.3 F Pulse Rate 116 H 117 H 99 Respiratory 16 20 20 Rate Blood Pressure 117/98 117/98 105/70 O2 Sat by Pulse 94 L 94 L 96 Oximetry Medical Decision Making - Lab Data Result diagrams: 02/14/22 17:30 02/14/22 17:30 Lab Results 02/14/22 02/14/22 02/14/22 Range/Units 17:30 17:30 17:30 WBC 14.3 H (3.8-10.6) k/uL RBC 4.75 (3.80-5.40) m/uL Hgb 14.6 (11.4-16.0) gm/dL Hct 43.8 (34.0-46.0) % MCV 92.2 (80.0-100.0) fL MCH 30.7 (25.0-35.0) pg MCHC 33.3 (31.0-37.0) g/dL RDW 12.9 (11.5-15.5) % Plt Count 435 (150-450) k/uL MPV 7.8 Neutrophils % 79 % Lymphocytes % 15 % Monocytes % 4 % Eosinophils % 1 % Basophils % 0 % Neutrophils # 11.3 H (1.3-7.7) k/uL Lymphocytes # 2.1 (1.0-4.8) k/uL Monocytes # 0.6 (0-1.0) k/uL Eosinophils # 0.1 (0-0.7) k/uL Basophils # 0.1 (0-0.2) k/uL PT 10.9 (9.0-12.0) sec INR 1.0 (<1.2) APTT 21.7 L (22.0-30.0) sec Sodium 136 L (137-145) mmol/L Potassium 3.7 (3.5-5.1) mmol/L Chloride 91 L (98-107) mmol/L Carbon Dioxide 27 (22-30) mmol/L Anion Gap 18 mmol/L BUN 41 H (7-17) mg/dL Creatinine 1.03 (0.52-1.04) mg/dL Est GFR (CKD-EPI)AfAm 64 (>60 ml/min/1.73 sqM) Est GFR (CKD-EPI)NonAf 55 (>60 ml/min/1.73 sqM) Glucose 199 H (74-99) mg/dL Plasma Lactic Acid Eliseo (0.7-2.0) mmol/L Calcium 10.8 H (8.4-10.2) mg/dL Magnesium 1.4 L (1.6-2.3) mg/dL Total Bilirubin 0.6 (0.2-1.3) mg/dL AST 21 (14-36) U/L ALT 17 (4-34) U/L Alkaline Phosphatase 155 H (38-126) U/L Total Protein 7.6 (6.3-8.2) g/dL Albumin 4.8 (3.5-5.0) g/dL Blood Type Blood Type Recheck Bld Type Recheck Status Antibody Screen Spec Expiration Date 02/14/22 02/14/22 Range/Units 17:30 17:30 WBC (3.8-10.6) k/uL RBC (3.80-5.40) m/uL Hgb (11.4-16.0) gm/dL Hct (34.0-46.0) % MCV (80.0-100.0) fL MCH (25.0-35.0) pg MCHC (31.0-37.0) g/dL RDW (11.5-15.5) % Plt Count (150-450) k/uL MPV Neutrophils % % Lymphocytes % % Monocytes % % Eosinophils % % Basophils % % Neutrophils # (1.3-7.7) k/uL Lymphocytes # (1.0-4.8) k/uL Monocytes # (0-1.0) k/uL Eosinophils # (0-0.7) k/uL Basophils # (0-0.2) k/uL PT (9.0-12.0) sec INR (<1.2) APTT (22.0-30.0) sec Sodium (137-145) mmol/L Potassium (3.5-5.1) mmol/L Chloride (98-107) mmol/L Carbon Dioxide (22-30) mmol/L Anion Gap mmol/L BUN (7-17) mg/dL Creatinine (0.52-1.04) mg/dL Est GFR (CKD-EPI)AfAm (>60 ml/min/1.73 sqM) Est GFR (CKD-EPI)NonAf (>60 ml/min/1.73 sqM) Glucose (74-99) mg/dL Plasma Lactic Acid Eliseo 3.4 H* (0.7-2.0) mmol/L Calcium (8.4-10.2) mg/dL Magnesium (1.6-2.3) mg/dL Total Bilirubin (0.2-1.3) mg/dL AST (14-36) U/L ALT (4-34) U/L Alkaline Phosphatase (38-126) U/L Total Protein (6.3-8.2) g/dL Albumin (3.5-5.0) g/dL Blood Type O Negative Blood Type Recheck O Neg Bld Type Recheck Status No Antibody Screen NEGATIVE Spec Expiration Date 02/17/20222329 Critical Care Time Critical Care Time: Yes Total Critical Care Time: 33 Disposition Clinical Impression: Hematemesis Disposition: OTHER INSTITUTION NOT DEFINED Condition: Serious Referrals: Jacquie Collins MD [Primary Care Provider] - 1-2 days Time of Disposition: 18:38 - Out of Hospital Transfer - Req. Specs Out of Hospital Transfer - Requested Specifics: Other Emergency Center ([facility])
[2022-02-14 17:39] LABS: Basophils # (A) 0.1 k/uL (0-0.2); Basophils % (A) 0 %; Eosinophils # (A) 0.1 k/uL (0-0.7); Eosinophils % (A) 1 %; HCT 43.8 % (34.0-46.0); HGB 14.6 gm/dL (11.4-16.0); Lymphocytes # (A) 2.1 k/uL (1.0-4.8); Lymphocytes % (A) 15 %; MCH 30.7 pg (25.0-35.0); MCHC 33.3 g/dL (31.0-37.0); MCV 92.2 fL (80.0-100.0); Mean Platelet Volume 7.8; Monocytes # (A) 0.6 k/uL (0-1.0); Monocytes % (A) 4 %; Neutrophils # (A) 11.3 k/uL (1.3-7.7); Neutrophils % (A) 79 %; Platelet Count 435 k/uL (150-450); RBC 4.75 m/uL (3.80-5.40); RDW 12.9 % (11.5-15.5); WBC 14.3 k/uL (3.8-10.6)
[2022-02-14 17:48] LABS: Albumin 4.8 g/dL (3.5-5.0); Calcium 10.8 mg/dL (8.4-10.2); Magnesium 1.4 mg/dL (1.6-2.3); Potassium 3.7 mmol/L (3.5-5.1); Total Bilirubin 0.6 mg/dL (0.2-1.3); Total Protein 7.6 g/dL (6.3-8.2)
[2022-02-14 17:58] LABS: Prothrombin Time 10.9 sec (9.0-12.0)
[2022-02-14 18:00] LABS: Partial Thromboplastin Time 21.7 sec (22.0-30.0)
[2022-02-14] MEDS ORDERED: cefTRIAXone IN SWFI 1,000 MG/10 ML SYRINGE IVP STA (18:27)
--- NOTE | 2022-02-14 18:31 | CT ---
EXAMINATION TYPE: CT abdomen pelvis w con DATE OF EXAM: 02/14/2022 COMPARISON: 01/29/2022 HISTORY: Vomitting blood CT DLP: 847.6 mGycm Automated exposure control for dose reduction was used. CONTRAST: Performed with IV Contrast, patient injected with 80cc mL of Isovue 300. The lung bases show mild subsegmental atelectasis. There is mild hiatal hernia. Heart size is normal. No pericardial effusion. No pleural effusion. There are some clips in the right upper quadrant. Gallbladder is intact. The bile ducts are not dilat ed. Spleen is intact. No pancreatic mass. There is no adrenal mass. Kidneys show satisfactory contrast opacification. There is no hydronephrosi s. Ureters are not dilated. No retroperitoneal adenopathy. The bladder distends smoothly. There is no inguinal hernia. There is no free fluid in the pelvis. No sign of a pelvic mass. There are a few sig moid diverticula. There is a device implanted in the subcutaneous tissues over the anterior left pelv is. There is no mesenteric edema. No ascites or free air. No sign of a bowel obstruction. There is multil evel posterior fusion surgery lower lumbar spine. The bony pelvis is intact. The hip joints are intact. Sacroiliac joints appear intact. IMPRESSION: Mild subsegmental atelectasis at the lung bases is increased compared to old exam. Small hiatal herni a. No acute abnormality in the abdomen and pelvis. Mild colonic diverticulosis.
[2022-02-14] MEDS ORDERED: MORPHINE SULFATE 4 MG/ML SYRINGE IV STA (19:47)
[2022-02-14 19:53] VITALS: TEMP 98
[2022-02-14 20:58] VITALS: BP 175/99; PULSE 80; RESP 24
== END 2022-02-14 21:45 | disposition other institution (70) ==
LOC: EC 17:07
DX: K92.0 Hematemesis (principal); K21.9 Gastro-esophageal reflux disease without esophagitis; I10 Essential (primary) hypertension; M19.90 Unspecified osteoarthritis, unspecified site; Z87.891 Personal history of nicotine dependence; Z88.2 Allergy status to sulfonamides; Z88.1 Allergy status to other antibiotic agents; Z91.040 Latex allergy status; Z88.8 Allergy status to other drugs, medicaments and biological substances; Z79.899 Other long term (current) drug therapy
CPT/HCPCS: 36415; 93005; 86900; 86901; 80053; 83605; 83735; 85025; 85610; 85730; 86850; 74177; 99291; 96374; 96375; 96361; J2270; J2405; J0696; C9113; Q9967

== ENCOUNTER 2022-04-04 15:26 | Inpatient (IN) | payer MEDICARE ==
[2022-04-04] MEDS ORDERED: PANTOPRAZOLE 40 MG/10 ML VIAL IVP STA (15:39)
[2022-04-04] MEDS ORDERED: SODIUM CHLORIDE 0.9% 500 ML 500 ML IV ONE (15:54)
[2022-04-04] MEDS ORDERED: ONDANSETRON 4 MG/2 ML VIAL IVP STA (15:54)
[2022-04-04] MEDS ORDERED: HYDROmorphone 0.5 MG/0.5 ML SYRINGE IVP STA (15:54)
[2022-04-04 16:10] LABS: Basophils % (A) 0 %; Eosinophils # (A) 0.1 k/uL (0-0.7); Eosinophils % (A) 1 %; HCT 44.3 % (34.0-46.0); HGB 14.9 gm/dL (11.4-16.0); Hypochromasia Slight; Lymphocytes # (A) 1.7 k/uL (1.0-4.8); Lymphocytes % (A) 15 %; MCH 30.6 pg (25.0-35.0); MCHC 33.7 g/dL (31.0-37.0); MCV 90.8 fL (80.0-100.0); Monocytes # (A) 0.4 k/uL (0-1.0); Monocytes % (A) 4 %; Neutrophils # (A) 8.9 k/uL (1.3-7.7); Neutrophils % (A) 80 %; Platelet Count 360 k/uL (150-450); RBC 4.88 m/uL (3.80-5.40); RDW 12.9 % (11.5-15.5); WBC 11.2 k/uL (3.8-10.6)
[2022-04-04 16:23] LABS: AST 25 U/L (14-36); African American GFR (CKD) >90 (>60 ml/min/1.73 sqM); Albumin 4.9 g/dL (3.5-5.0); Alkaline Phosphatase 156 U/L (38-126); Anion Gap 22 mmol/L; Blood Urea Nitrogen 23 mg/dL (7-17); Carbon Dioxide 20 mmol/L (22-30); Chloride 100 mmol/L (98-107); Glucose 191 mg/dL (74-99); Lipase 32 U/L (23-300); Magnesium 1.7 mg/dL (1.6-2.3); Non-African American GFR(CKD) >90 (>60 ml/min/1.73 sqM); Potassium 3.5 mmol/L (3.5-5.1); Sodium 142 mmol/L (137-145); Total Bilirubin 0.8 mg/dL (0.2-1.3); Total Protein 7.4 g/dL (6.3-8.2)
[2022-04-04 16:30] LABS: ALT 28 U/L (4-34)
[2022-04-04 16:31] LABS: Partial Thromboplastin Time 22.6 sec (22.0-30.0); Prothrombin Time 11.2 sec (9.0-12.0)
[2022-04-04] MEDS ORDERED: NALOXONE 0.4 MG/ML 1 ML VIAL IV PRN (17:30)
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
[2022-04-04] MEDS: ALPRAZolam 0.25 MG TAB PO PRN (19:00)
[2022-04-04] MEDS: HYDROcodone/APAP 10-325MG 1 EACH TAB PO PRN (19:01)
[2022-04-04] MEDS: PANTOPRAZOLE 40 MG/10 ML VIAL IVP SCH (20:03)
[2022-04-04] MEDS: SODIUM CHLORIDE 0.9% 1,000 ML IV SCH (20:03)
[2022-04-04 22:50] LABS: Basophils % (A) 0 %; Eosinophils # (A) 0.1 k/uL (0-0.7); Eosinophils % (A) 1 %; HCT 39.1 % (34.0-46.0); HGB 13.2 gm/dL (11.4-16.0); Hypochromasia Slight; Lymphocytes # (A) 2.4 k/uL (1.0-4.8); Lymphocytes % (A) 21 %; MCH 30.7 pg (25.0-35.0); MCHC 33.7 g/dL (31.0-37.0); Mean Platelet Volume 7.6; Monocytes # (A) 0.6 k/uL (0-1.0); Monocytes % (A) 5 %; Neutrophils % (A) 71 %; Platelet Count 311 k/uL (150-450); RBC 4.29 m/uL (3.80-5.40); RDW 12.9 % (11.5-15.5); WBC 11.3 k/uL (3.8-10.6)
[2022-04-05] MEDS: ALPRAZolam 0.25 MG TAB PO PRN ×2 (03:23→20:11)
[2022-04-05] MEDS: ONDANSETRON 4 MG/2 ML VIAL IVP PRN (06:03)
[2022-04-05] MEDS: HYDROcodone/APAP 10-325MG 1 EACH TAB PO PRN ×2 (06:03→15:36)
[2022-04-05] MEDS: SODIUM CHLORIDE 0.9% 1,000 ML IV SCH ×2 (06:05→18:41)
[2022-04-05 07:26] LABS: Basophils # (A) 0.1 k/uL (0-0.2); Basophils % (A) 1 %; Eosinophils # (A) 0.1 k/uL (0-0.7); Eosinophils % (A) 1 %; HCT 38.8 % (34.0-46.0); HGB 12.8 gm/dL (11.4-16.0); Hypochromasia Slight; Lymphocytes # (A) 2.4 k/uL (1.0-4.8); Lymphocytes % (A) 28 %; MCH 30.4 pg (25.0-35.0); MCHC 32.9 g/dL (31.0-37.0); MCV 92.7 fL (80.0-100.0); Mean Platelet Volume 8.2; Monocytes # (A) 0.5 k/uL (0-1.0); Monocytes % (A) 6 %; Neutrophils # (A) 5.3 k/uL (1.3-7.7); Neutrophils % (A) 62 %; Platelet Count 246 k/uL (150-450); RBC 4.19 m/uL (3.80-5.40); RDW 13.2 % (11.5-15.5); WBC 8.7 k/uL (3.8-10.6)
[2022-04-05] MEDS: VENLAFAXINE HCL ER 150 MG CAP PO SCH (08:14)
[2022-04-05] MEDS: ARIPiprazole 5 MG TAB PO SCH (08:14)
[2022-04-05] MEDS: LISINOPRIL-HCTZ 20-12.5 MG 1 EACH TAB PO SCH (08:14)
[2022-04-05] MEDS: VENLAFAXINE HCL 75 MG TAB PO SCH (08:14)
[2022-04-05] MEDS: PANTOPRAZOLE 40 MG/10 ML VIAL IVP SCH ×2 (08:15→20:11)
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
--- NOTE | 2022-04-05 11:41 | P.PN ---
Subjective Progress Note Date: 04/05/22 Patient states that she still feels nauseous. She states that she does not feel safe going home. She states that her entire home is covered with vomitus. She is wondering if someone can help her with the cleaning. I asked caser to see the patient and see if they can help her out in anyway. Objective - Vital Signs Vital signs: Vital Signs Temp 97.8 F 04/05/22 11:23 Pulse 73 04/05/22 11:23 Resp 18 04/05/22 11:23 BP 156/62 04/05/22 11:23 Pulse Ox 97 04/05/22 11:23 FiO2 Intake & Output 04/04/22 04/05/22 04/05/22 18:59 06:59 18:59 Intake Total 675 Balance 675 Weight 62.596 kg 62.596 kg Intake: Intake, IV Titration 675 Amount Sodium Chloride 0.9% 1, 675 000 ml @ 75 mls/hr IV . 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 Trend CBC daily IV Protonix twice a day GI is recommending symptomatic care and no plans for EGD at this time. Antiemetics when necessary Hypertension Resume home meds GERD Patient on Protonix Anxiety Resume home meds and will add Xanax CODE STATUS:full code DVT prophylaxis: mechanical Anticipated length of stay: Anticipate patient. For discharge in the next 24 hours if GI does not plan on doing any scoping. Anticipated discharge place: home with home care
[2022-04-05] MEDS ORDERED: SUCRALFATE 1 GM TAB PO SCH (12:30)
[2022-04-05] MEDS: SUCRALFATE 1 GM TAB PO SCH ×3 (13:22→20:11)
[2022-04-06 06:01] LABS: HCT 35.6 % (34.0-46.0); HGB 11.7 gm/dL (11.4-16.0); Hypochromasia Slight; MCH 30.6 pg (25.0-35.0); MCHC 32.9 g/dL (31.0-37.0); MCV 92.9 fL (80.0-100.0); Mean Platelet Volume 7.9; Platelet Count 192 k/uL (150-450); RBC 3.83 m/uL (3.80-5.40); RDW 12.8 % (11.5-15.5); WBC 4.4 k/uL (3.8-10.6)
[2022-04-06] MEDS: HYDROcodone/APAP 10-325MG 1 EACH TAB PO PRN ×2 (09:10→21:37)
[2022-04-06] MEDS: VENLAFAXINE HCL ER 150 MG CAP PO SCH (09:11)
[2022-04-06] MEDS: VENLAFAXINE HCL 75 MG TAB PO SCH (09:11)
[2022-04-06] MEDS: LISINOPRIL-HCTZ 20-12.5 MG 1 EACH TAB PO SCH (09:11)
[2022-04-06] MEDS: ARIPiprazole 5 MG TAB PO SCH (09:11)
[2022-04-06] MEDS: SUCRALFATE 1 GM TAB PO SCH ×4 (09:11→20:14)
[2022-04-06] MEDS: SODIUM CHLORIDE 0.9% 1,000 ML IV SCH ×2 (09:12→21:38)
[2022-04-06] MEDS: PANTOPRAZOLE 40 MG/10 ML VIAL IVP SCH ×2 (09:12→20:14)
--- NOTE | 2022-04-06 10:03 | P.PN ---
Subjective Progress Note Date: 04/06/22 Patient says that she still having small episodes of coffee-ground emesis. She stated that she still does not feel well. She stated that she is still having nausea. 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 Trend CBC daily IV Protonix twice a day GI is recommending symptomatic care and no plans for EGD at this time. Hemoglobin is gradually trending down and patient is still having small episodes of coffee-ground emesis Awaiting for further recommendations from GI We'll keep patient on clear liquid diet Antiemetics when necessary Hypertension Resume home meds GERD Patient on Protonix Anxiety Resume home meds and will add Xanax Chronic debility PT OT recommending detention facility CODE STATUS:full code DVT prophylaxis: mechanical Anticipated length of stay: As per clinical course Anticipated discharge place: halfway facility
[2022-04-06] MEDS: ALPRAZolam 0.25 MG TAB PO PRN ×2 (11:04→20:13)
--- NOTE | 2022-04-06 14:46 | P.PN ---
Subjective Progress Note Date: 04/06/22 Principal diagnosis: Coffee-ground emesis This a pleasant 72-year-old female who presented to the emergency department with complaints of chronic nausea and vomiting with occasional coffee-ground emesis. Patient states that she's had ongoing chronic nausea and vomiting since January of this year. At that time she was transferred down to [facility] and states she underwent EGD with findings of esophageal ulcers. Unfortunately the report is not available at this time. Her previous EGD colonoscopy done 06/02/2019 showed moderate antral gastritis, moderate sigmoid diverticulosis and polyps status post polypectomy. She has had multiple hospitalizations related to this chronic nausea and vomiting. She complains of epigastric pain. States She states since Sunday the nausea and vomiting has become worse. She is very weak, she is unable to care for herself. She was prescribed Carafate and protonix after her last EGD done at [facility] however patient states she stopped taking the medications due to financial cost. Patient states she had one emesis since she's been to the emergency department, which she states was coffee-ground. On admission she was noted to have a hemoglobin of 14 with a repeat today of 12.8. 04/06/2022. Patient seen and reexamined today for follow-up for coffee-ground emesis and generalized weakness. She states she vomited twice through the evening, states that it was dark. She states she's feeling weak today no further abdominal pain nausea or vomiting currently. She is tolerating her liquid diet, and is requesting to be advanced. Records were obtained from [facility] where she underwent EGD on 02/15/2022 with findings of erosive esophagitis, no active bleeding, no ulcers. Objective - Vital Signs Vital signs: Vital Signs Temp 97.4 F L 04/06/22 03:02 Pulse 62 04/06/22 03:02 Resp 17 04/06/22 03:02 BP 101/63 04/06/22 03:02 Pulse Ox 94 L 04/06/22 03:02 FiO2 Intake & Output 04/05/22 04/06/22 04/06/22 18:59 06:59 18:59 Intake Total 522 Balance 522 Intake: Oral 522 Other: Voiding Method Toilet # Voids 1 - Exam General appearance: The patient is alert, oriented, appears in no acute distress. HET: Head is normocephalic and atraumatic. Conjunctiva pink. Sclera anicteric. Neck: Supple without lymphadenopathy. Abdomen: Soft, nontender, nondistended with bowel sounds. No guarding or rigidity. Extremities: Normal skin color and turgor. No pedal edema Skin: No rashes, no jaundice Neurological: No focal deficits. Alert and oriented. - Labs CBC & Chem 7: 04/06/22 05:06 04/04/22 15:56 Assessment and Plan (1) Coffee ground emesis Narrative/Plan: 72-year-old female with a history of chronic nausea vomiting and diarrhea. Seen multiple times in the hospital. Back in again with complaints of nausea and vomiting with coffee-ground emesis. States that she's had symptoms since January of this year which at that time she was transferred to [facility] and underwent an EGD which she states had findings of esophageal ulcer and was supposed to continue with Carafate and Protonix however patient has been noncompliant due to financial issues. Patient was also supposed to follow-up with Dr. Tony however never made the appointment. She returns with similar symptoms states that she is having difficulty keeping even liquids down. She's becoming very weak. Complaints of epigastric pain again patient is likely experiencing symptoms related to possible ulcer. We will start treatment with Carafate and proton next. No plans on EGD at this time. Current Visit: Yes Status: Acute Code(s): K92.0 - HEMATEMESIS SNOMED Code(s): 70588042 (2) Intractable vomiting with nausea Narrative/Plan: resolved Current Visit: Yes Status: Acute Code(s): R11.2 - NAUSEA WITH VOMITING, UNSPECIFIED SNOMED Code(s): 548054186 Plan: 1. Continue symptomatic supportive care 2. Continue antiemetics as needed 3. Protonix 40 mg twice a day 4. Carafate 4 times a day 5. Consult social work, financial assistance and help with medication compliance 6. No plans on EGD, a shot recently underwent EGD on 02/15/2022 at [facility] finding erosive esophagitis Thank you for this consultation, the patient is cleared from gastroenterology for discharge. Dr. Judi Tony I agree with the dictator's note, documented as a scribe by Dayan Fuller.
[2022-04-06] MEDS: ONDANSETRON 4 MG/2 ML VIAL IVP PRN (20:13)
[2022-04-06] MEDS: DOCUSATE 100 MG CAP PO SCH (21:38)
[2022-04-07 06:40] LABS: HCT 32.2 % (34.0-46.0); HGB 10.6 gm/dL (11.4-16.0); Hypochromasia Moderate; MCH 30.8 pg (25.0-35.0); MCHC 32.9 g/dL (31.0-37.0); MCV 93.7 fL (80.0-100.0); Platelet Count 183 k/uL (150-450); RBC 3.43 m/uL (3.80-5.40); RDW 12.9 % (11.5-15.5); WBC 4.3 k/uL (3.8-10.6)
[2022-04-07] MEDS: PANTOPRAZOLE 40 MG/10 ML VIAL IVP SCH ×2 (08:00→20:29)
[2022-04-07] MEDS: polyethylene glycoL 3350 17 GM POWD.PACK PO SCH (08:01)
[2022-04-07] MEDS: DOCUSATE 100 MG CAP PO SCH ×2 (08:01→20:29)
[2022-04-07] MEDS: VENLAFAXINE HCL 75 MG TAB PO SCH (08:01)
[2022-04-07] MEDS: VENLAFAXINE HCL ER 150 MG CAP PO SCH (08:02)
[2022-04-07] MEDS: SUCRALFATE 1 GM TAB PO SCH ×4 (08:02→20:29)
[2022-04-07] MEDS: LISINOPRIL-HCTZ 20-12.5 MG 1 EACH TAB PO SCH (08:02)
[2022-04-07] MEDS: ARIPiprazole 5 MG TAB PO SCH (08:02)
[2022-04-07] MEDS: ALPRAZolam 0.25 MG TAB PO PRN ×2 (08:03→22:34)
[2022-04-07] MEDS: HYDROcodone/APAP 10-325MG 1 EACH TAB PO PRN ×2 (09:26→20:29)
[2022-04-07] MEDS: SODIUM CHLORIDE 0.9% 1,000 ML IV SCH (11:48)
--- NOTE | 2022-04-07 12:14 | P.PN ---
Subjective Progress Note Date: 04/07/22 Principal diagnosis: Coffee-ground emesis This a pleasant 72-year-old female who presented to the emergency department with complaints of chronic nausea and vomiting with occasional coffee-ground emesis. Patient states that she's had ongoing chronic nausea and vomiting since January of this year. At that time she was transferred down to [facility] and states she underwent EGD with findings of esophageal ulcers. Unfortunately the report is not available at this time. Her previous EGD colonoscopy done 06/02/2019 showed moderate antral gastritis, moderate sigmoid diverticulosis and polyps status post polypectomy. She has had multiple hospitalizations related to this chronic nausea and vomiting. She complains of epigastric pain. States She states since Sunday the nausea and vomiting has become worse. She is very weak, she is unable to care for herself. She was prescribed Carafate and protonix after her last EGD done at [facility] however patient states she stopped taking the medications due to financial cost. Patient states she had one emesis since she's been to the emergency department, which she states was coffee-ground. On admission she was noted to have a hemoglobin of 14 with a repeat today of 12.8. 04/06/2022. Patient seen and reexamined today for follow-up for coffee-ground emesis and generalized weakness. She states she vomited twice through the evening, states that it was dark. She states she's feeling weak today no further abdominal pain nausea or vomiting currently. She is tolerating her liquid diet, and is requesting to be advanced. Records were obtained from [facility] where she underwent EGD on 02/15/2022 with findings of erosive esophagitis, no active bleeding, no ulcers. 04/07/2022. Patient seen and examined today as follow-up. She is denying any further nausea or vomiting. No further coffee-ground emesis. She is tolerating her diet. Denies any abdominal pain, states she does have some burning in the epigastric region. Also complaining of some constipation, no bowel movement for 4-5 days. Objective - Vital Signs Vital signs: Vital Signs Temp 97.5 F L 04/07/22 03:13 Pulse 57 L 04/07/22 03:13 Resp 15 04/07/22 03:13 BP 90/47 04/07/22 03:13 Pulse Ox 93 L 04/07/22 03:13 FiO2 Intake & Output 04/06/22 04/06/22 04/07/22 06:59 18:59 06:59 Intake Total 444 Balance 444 Intake: Oral 444 Other: Voiding Method Toilet Toilet # Voids 1 1 2 - Exam General appearance: The patient is alert, oriented, appears in no acute distress. HET: Head is normocephalic and atraumatic. Conjunctiva pink. Sclera anicteric. Neck: Supple without lymphadenopathy. Abdomen: Soft, nontender, nondistended with bowel sounds. No guarding or rig idity. Extremities: Normal skin color and turgor. No pedal edema Skin: No rashes, no jaundice Neurological: No focal deficits. Alert and oriented. - Labs CBC & Chem 7: 04/07/22 05:46 04/04/22 15:56 Labs: Abnormal Lab Results - Last 24 Hours (Table) 04/07/22 Range/Units 05:46 RBC 3.43 L (3.80-5.40) m/uL Hgb 10.6 L (11.4-16.0) gm/dL Hct 32.2 L (34.0-46.0) % Assessment and Plan (1) Coffee ground emesis Narrative/Plan: 72-year-old female with a history of chronic nausea vomiting and diarrhea. Seen multiple times in the hospital. Back in again with complaints of nausea and vomiting with coffee-ground emesis. States that she's had symptoms since January of this year which at that time she was transferred to [facility] and underwent an EGD which she states had findings of esophageal ulcer and was supposed to continue with Carafate and Protonix however patient has been noncompliant due to financial issues. Patient was also supposed to follow-up with Dr. Tony however never made the appointment. She returns with similar symptoms states that she is having difficulty keeping even liquids down. She's becoming very weak. Complaints of epigastric pain again patient is likely experiencing symptoms related to possible ulcer. We will start treatment with Carafate and proton next. No plans on EGD at this time. Current Visit: Yes Status: Acute Code(s): K92.0 - HEMATEMESIS SNOMED Code(s): 57393876 (2) Intractable vomiting with nausea Narrative/Plan: resolved Current Visit: Yes Status: Acute Code(s): R11.2 - NAUSEA WITH VOMITING, UNSPECIFIED SNOMED Code(s): 404054631 Plan: 1. Continue symptomatic supportive care 2. Continue antiemetics as needed 3. Protonix 40 mg twice a day 4. Carafate 4 times a day 5. Consult social work, financial assistance and help with medication compliance 6. No plans on EGD, a shot recently underwent EGD on 02/15/2022 at [facility] finding erosive esophagitis 7. MiraLAX daily, may titrate to have twice daily to have a bowel movement Thank you for this consultation, the patient is cleared from gastroenterology for discharge. Thank you for allowing us to participate in the care of the patient, the GI service will sign off, gastroenterology will not be available at the hospital this weekend and through next week.
--- NOTE | 2022-04-07 12:27 | P.PN ---
Subjective This is a pleasant 72 years old female with past medical history of erosive esophagitis that was diagnosed by EGD on 01/2022 Presents this time with coughing up of blood and odynophagia related to her erosive erosive esophagitis GI team already evaluated the patient and they cleared her for discharge, currently she is on a Protonix and Carafate. She still complained from symptoms of pain on eating which limits her ability to consume food and she has low appetite. On 01/29- earlier couple months ago she was in the hospital for colitis with r ecurrent abdominal pain and nausea vomiting, she was discharged with recommendation to follow up with Dr. Tony for outpatient EGD/colonoscopy. CT of the abdomen and pelvis with contrast on 01/29/2022: Nondistended sigmoid: With so ago thickening of the gamino correlate for colitis. No additional fi ndings within the abdomen and pelvis to correlate patient's symptomatology.. Suspect postsurgical changes of the gastroesophageal junction with persistent small hiatal hernia she underwent EGD on 02/15/2022 with findings of erosive esophagitis, no active bleeding, no ulcers. She was prescribed Carafate and protonix after her last EGD done at [facility] however patient states she stopped taking the medications due to financial cost. Patient is fully awake and oriented but she feels very weak and she thinks she cannot be discharged. She states she has low appetite and she is having itching problem she's been eating 0-25% of her meals. Also she complains from pain on eating. Also patient with epigastric pain and tenderness and to a lesser degree right upper tenderness but negative Singh sign. Also patient complaining of from lower abdomen tenderness, no guarding or rebound tenderness She denies any dysuria urgency but she complains from exertional dyspnea. No headaches or dizziness or weakness or numbness Denies smoking, alcohol or illicit drugs Patient has been afebrile but blood pressure was 90/47. Morning 113/69 She had mild leukocytosis on admission improved now. Hemoglobin 10.6. Creatinine 0.6 but BUN is elevated 23. Simple looks dehydrated Liver enzymes not elevated. Lipase normal. No imaging done during the admission Patient currently on lisinopril, hydrochlorothiazide, IV Protonix twice daily, normal saline at 75 mL/h Bladder scan was checked was 78 Objective - Vital Signs Vital signs: Vital Signs Temp 97.6 F 04/07/22 07:53 Pulse 72 04/07/22 07:53 Resp 16 04/07/22 07:53 BP 113/69 04/07/22 07:53 Pulse Ox 95 04/07/22 07:53 FiO2 Intake & Output 04/06/22 04/07/22 04/07/22 18:59 06:59 18:59 Intake Total 444 240 Balance 444 240 Intake: Oral 444 240 Other: Voiding Method Toilet Toilet # Voids 1 2 - Exam -GENERAL: The patient is alert and oriented x3, not in any acute distress. Well developed, well nourished. Generally weak HEENT: Pupils are round and equally reacting to light. EOMI. No scleral icterus. No conjunctival pallor. Normocephalic, atraumatic. No pharyngeal erythema. No thyromegaly. CARDIOVASCULAR: S1 and S2 present. No murmurs, rubs, or gallops. PULMONARY: Chest is clear to auscultation, no wheezing or crackles. -ABDOMEN: Soft, mild epigastric tenderness and lower abdominal tenderness with no guarding or rebound tenderness, nondistended, normoactive bowel sounds. No palpable organomegaly. MUSCULOSKELETAL: No joint swelling or deformity. EXTREMITIES: No cyanosis, clubbing, or pedal edema. NEUROLOGICAL: Gross neurological examination did not reveal any focal deficits. SKIN: No rashes. no petechiae. - Labs CBC & Chem 7: 04/07/22 05:46 04/04/22 15:56 Labs: Abnormal Lab Results - Last 24 Hours (Table) 04/07/22 Range/Units 05:46 RBC 3.43 L (3.80-5.40) m/uL Hgb 10.6 L (11.4-16.0) gm/dL Hct 32.2 L (34.0-46.0) % Assessment and Plan Assessment: Generalized weakness Erosive esophagitis, recently diagnosed. Coffee ground vomitus secondary to above, patient cleared by GI team noncompliance to medication because of financial issue, Present on admission Recent history of colitis about 2 months ago History of fibromyalgia and generalized weakness borderline low blood pressure Plan: Continue with Carafate and Protonix Monitor hemoglobin Patient was taken for discharge by GI team Order urine analysis, chest x-ray Repeat labs in the morning hold lisinopril hydrochlorothiazide 20-12.5 mg Labs and medication were reviewed.. Continue same treatment. Continue with symptomatic treatment. Resume home medication. Monitor lytes and vitals. DVT and GI prophylaxis. Further recommendations as per clinical course of the patient DVT prophylaxis: no Subcutaneous heparin in view of GI symptoms and GI bleed GI Prophylaxis: Ppi PT/OWith subacute rehab for which patient agrees Prognosis is guarded
--- NOTE | 2022-04-07 12:45 | XR ---
EXAMINATION TYPE: XR chest 2V DATE OF EXAM: 04/07/2022 COMPARISON: Chest x-ray 08/07/2020 HISTORY: Weakness TECHNIQUE: Frontal and lateral views of the chest are obtained. FINDINGS: The cardiomediastinal silhouette is likely stable accounting for differences in technique. Postop changes are again noted to the left shoulder. No evident pneumothorax or pleural effusion. Me tallic device over the left lower ribs is again seen, likely loop recorder. Patient is rotated. Posto p change noted to the cervical spine. No evident airspace disease. Eventration of the right hemidiaph ragm is again seen. Postop change noted to the lumbar spine, there is vertebroplasty change. IMPRESSION: No acute cardiopulmonary process.
[2022-04-07 15:53] LABS: Appearance,Urine Clear (Clear); Bacteria,Urine Rare /hpf; Bilirubin,Urine Negative (Negative); Blood,Urine Negative (Negative); Color,Urine Colorless; Glucose,Urine (UA) Negative (Negative); Hyaline Casts,Urine 1 /lpf (0-2); Ketones,Urine Negative (Negative); Leukocyte Esterase,Urine Small (Negative); Mucus,Urine Rare /hpf; Nitrite,Urine Negative (Negative); PH, Urine 5.5 (5.0-8.0); Protein,Urine Negative (Negative); Specific Gravity,Urine 1.006 (1.001-1.035); Squamous Epithelial Cell,Urine <1 /hpf (0-4); Urobilinogen,Urine <2.0 mg/dL (<2.0); WBC,Urine 11 /hpf (0-5)
[2022-04-07 15:59] LABS: African American GFR (CKD) >90 (>60 ml/min/1.73 sqM); Anion Gap 9 mmol/L; Blood Urea Nitrogen 13 mg/dL (7-17); Calcium 9.2 mg/dL (8.4-10.2); Carbon Dioxide 27 mmol/L (22-30); Chloride 102 mmol/L (98-107); Glucose 142 mg/dL (74-99); Magnesium 1.6 mg/dL (1.6-2.3); Non-African American GFR(CKD) 90 (>60 ml/min/1.73 sqM); Potassium 3.3 mmol/L (3.5-5.1); Sodium 138 mmol/L (137-145)
[2022-04-07] MEDS ORDERED: Potassium Replacement Protocol 1 EACH MISC MISCELLANE PRN (19:06)
[2022-04-07] MEDS: POTASSIUM CHLORIDE ER 20 MEQ TAB.ER PO SCH ×2 (20:29→22:01)
[2022-04-08] MEDS: SODIUM CHLORIDE 0.9% 1,000 ML IV SCH ×2 (02:16→12:45)
[2022-04-08] MEDS: ONDANSETRON 4 MG/2 ML VIAL IVP PRN (05:42)
[2022-04-08] MEDS: polyethylene glycoL 3350 17 GM POWD.PACK PO SCH (08:05)
[2022-04-08] MEDS: VENLAFAXINE HCL 75 MG TAB PO SCH (08:05)
[2022-04-08] MEDS: DOCUSATE 100 MG CAP PO SCH ×2 (08:06→20:00)
[2022-04-08] MEDS: ARIPiprazole 5 MG TAB PO SCH (08:06)
[2022-04-08] MEDS: VENLAFAXINE HCL ER 150 MG CAP PO SCH (08:06)
[2022-04-08] MEDS: PANTOPRAZOLE 40 MG/10 ML VIAL IVP SCH ×2 (08:06→19:45)
[2022-04-08] MEDS: SUCRALFATE 1 GM TAB PO SCH ×4 (08:06→19:45)
[2022-04-08] MEDS: HYDROcodone/APAP 10-325MG 1 EACH TAB PO PRN ×2 (08:17→19:45)
[2022-04-08 09:24] LABS: Basophils # (A) 0.02 X 10*3/uL (0.00-0.10); Basophils % (A) 0.5 %; Eosinophils # (A) 0.17 X 10*3/uL (0.04-0.35); Eosinophils % (A) 4.4 %; HCT 30.9 % (37.2-46.3); Immature Grans, Automated 0 %; Lymphocytes # (A) 2.04 X 10*3/uL (0.90-5.00); Lymphocytes % (A) 52.7 %; MCHC 32.4 g/dL (32.0-37.0); MCV 92.8 fL (80.0-97.0); Mean Platelet Volume 10.7 fL (9.5-12.2); Monocytes # (A) 0.34 X 10*3/uL (0.20-1.00); Monocytes % (A) 8.8 %; NRBC Per 100 WBC 0 /100 WBCS (0.0-0.0); Neutrophils % (A) 33.6 %; Platelet Count 176 X 10*3/uL (140-440); RBC 3.33 X 10*6/uL (4.10-5.20); RDW 12.8 % (11.5-14.5); WBC 3.87 X 10*3/uL (4.50-10.00)
[2022-04-08 09:46] LABS: ALT 9 U/L (8-44); AST 13 U/L (13-35); African American GFR (CKD) 113.7 (60.0-200.0); Albumin 3.4 g/dL (3.8-4.9); Alkaline Phosphatase 107 U/L (41-126); Blood Urea Nitrogen 10.2 mg/dL (9.0-27.0); Calcium 9.5 mg/dL (8.7-10.3); Carbon Dioxide 25.9 mmol/L (20.0-27.5); Chloride 109 mmol/L (96-109); Globulin 1.7 g/dL (1.6-3.3); Glucose 115 mg/dL (70-110); Magnesium 1.7 mg/dL (1.5-2.4); Non-African American GFR(CKD) 98.1 (60.0-200.0); Potassium 3.9 mmol/L (3.5-5.5); Sodium 143 mmol/L (135-145); Total Bilirubin <0.15 mg/dL (0.30-1.20); Total Protein 5.1 g/dL (6.2-8.2)
[2022-04-08] MEDS: AMOXIC-POT CLAV 875-125MG 1 EACH TAB PO SCH (22:30)
--- NOTE | 2022-04-08 22:31 | P.PN ---
Subjective This is a pleasant 72 years old female with past medical history of erosive esophagitis that was diagnosed by EGD on 01/2022 Presents this time with coughing up of blood and odynophagia related to her erosive erosive esophagitis GI team already evaluated the patient and they cleared her for discharge, currently she is on a Protonix and Carafate. She still complained from symptoms of pain on eating which limits her ability to consume food and she has low appetite. On 01/29- earlier couple months ago she was in the hospital for colitis with r ecurrent abdominal pain and nausea vomiting, she was discharged with recommendation to follow up with Dr. Tony for outpatient EGD/colonoscopy. CT of the abdomen and pelvis with contrast on 01/29/2022: Nondistended sigmoid: With so ago thickening of the gamino correlate for colitis. No additional fi ndings within the abdomen and pelvis to correlate patient's symptomatology.. Suspect postsurgical changes of the gastroesophageal junction with persistent small hiatal hernia she underwent EGD on 02/15/2022 with findings of erosive esophagitis, no active bleeding, no ulcers. She was prescribed Carafate and protonix after her last EGD done at [facility] however patient states she stopped taking the medications due to financial cost. Patient is fully awake and oriented but she feels very weak and she thinks she cannot be discharged. She states she has low appetite and she is having itching problem she's been eating 0-25% of her meals. Also she complains from pain on eating. Also patient with epigastric pain and tenderness and to a lesser degree right upper tenderness but negative Singh sign. Also patient complaining of from lower abdomen tenderness, no guarding or rebound tenderness She denies any dysuria urgency but she complains from exertional dyspnea. No headaches or dizziness or weakness or numbness Denies smoking, alcohol or illicit drugs Patient has been afebrile but blood pressure was 90/47. Morning 113/69 She had mild leukocytosis on admission improved now. Hemoglobin 10.6. Creatinine 0.6 but BUN is elevated 23. Simple looks dehydrated Liver enzymes not elevated. Lipase normal. No imaging done during the admission Patient currently on lisinopril, hydrochlorothiazide, IV Protonix twice daily, normal saline at 75 mL/h Bladder scan was checked was 78 04/08/2022 Patient weakness is improved today after stopping her Xanax however she remains on home dose of narcotics. She still gets this pain for her back pain on her epigastric pain and odynophagia related to her erosive esophagitis. She remains on Protonix and Carafate. Urine culture is growing enterococcus and Augmentin was added pending final results. Lower normal saline to 50 mL per hour. Objective - Vital Signs Vital signs: Vital Signs Temp 98.1 F 04/08/22 19:30 Pulse 64 04/08/22 19:30 Resp 16 04/08/22 19:30 BP 129/73 04/08/22 19:30 Pulse Ox 95 04/08/22 19:30 FiO2 Intake & Output 04/08/22 04/08/22 04/09/22 06:59 18:59 06:59 Intake Total 598 Balance 598 Intake: Oral 598 Other: Voiding Method Toilet Toilet # Voids 1 2 - Exam -GENERAL: The patient is alert and oriented x3, not in any acute distress. Well developed, well nourished. Generally weak HEENT: Pupils are round and equally reacting to light. EOMI. No scleral icterus. No conjunctival pallor. Normocephalic, atraumatic. No pharyngeal erythema. No thyromegaly. CARDIOVASCULAR: S1 and S2 present. No murmurs, rubs, or gallops. PULMONARY: Chest is clear to auscultation, no wheezing or crackles. -ABDOMEN: Soft, mild epigastric tenderness and lower abdominal tenderness with no guarding or rebound tenderness, nondistended, normoactive bowel sounds. No palpable organomegaly. MUSCULOSKELETAL: No joint swelling or deformity. EXTREMITIES: No cyanosis, clubbing, or pedal edema. NEUROLOGICAL: Gross neurological examination did not reveal any focal deficits. SKIN: No rashes. no petechiae. - Labs CBC & Chem 7: 04/08/22 05:36 04/08/22 05:36 Labs: Abnormal Lab Results - Last 24 Hours (Table) 04/08/22 04/08/22 Range/Units 05:36 05:36 WBC 3.87 L (4.50-10.00) X 10*3/uL RBC 3.33 L (4.10-5.20) X 10*6/uL Hgb 10.0 L (12.0-15.0) g/dL Hct 30.9 L (37.2-46.3) % Neutrophils # 1.30 L (1.80-7.70) X 10*3/uL Anion Gap 8.10 L (10.00-18.00) mmol/L Creatinine 0.5 L (0.6-1.5) mg/dL BUN/Creatinine Ratio 20.40 H (12.00-20.00) Ratio Glucose 115 H (70-110) mg/dL Total Bilirubin <0.15 L (0.30-1.20) mg/dL Total Protein 5.1 L (6.2-8.2) g/dL Albumin 3.4 L (3.8-4.9) g/dL Microbiology - Last 24 Hours (Table) 04/07/22 14:56 Urine Culture - Preliminary Urine,Voided Group D Enterococcus Assessment and Plan Assessment: Enterococcus UTI Generalized weakness Erosive esophagitis, recently diagnosed. Coffee ground vomitus secondary to above, patient cleared by GI team noncompliance to medication because of financial issue, Present on admission Recent history of colitis about 2 months ago History of fibromyalgia and generalized weakness borderline low blood pressure Plan: Start Augmentin and follow-up urine culture Continue with Carafate and Protonix Monitor hemoglobin Patient was clear for discharge by GI team Resume lisinopril hydrochlorothiazide 20-12.5 mg Labs and medication were reviewed.. Continue same treatment. Continue with symptomatic treatment. Resume home medication. Monitor lytes and vitals. DVT and GI prophylaxis. Further recommendations as per clinical course of the patient DVT prophylaxis: no Subcutaneous heparin in view of GI symptoms and GI bleed GI Prophylaxis: Ppi PT/OWith subacute rehab for which patient agrees Prognosis is guarded
[2022-04-09] MEDS: SODIUM CHLORIDE 0.9% 1,000 ML IV SCH ×2 (03:28→17:17)
[2022-04-09] MEDS: SUCRALFATE 1 GM TAB PO SCH ×4 (07:52→20:33)
[2022-04-09] MEDS: PANTOPRAZOLE 40 MG/10 ML VIAL IVP SCH ×2 (07:53→20:33)
[2022-04-09] MEDS: ARIPiprazole 5 MG TAB PO SCH (07:53)
[2022-04-09] MEDS: VENLAFAXINE HCL ER 150 MG CAP PO SCH (07:53)
[2022-04-09] MEDS: VENLAFAXINE HCL 75 MG TAB PO SCH (07:53)
[2022-04-09] MEDS: polyethylene glycoL 3350 17 GM POWD.PACK PO SCH (07:53)
[2022-04-09] MEDS: DOCUSATE 100 MG CAP PO SCH ×2 (07:54→20:32)
[2022-04-09] MEDS: HYDROcodone/APAP 10-325MG 1 EACH TAB PO PRN ×2 (08:04→20:33)
[2022-04-09] MEDS: ONDANSETRON 4 MG/2 ML VIAL IVP PRN (08:04)
[2022-04-09] MEDS: AMOXIC-POT CLAV 875-125MG 1 EACH TAB PO SCH ×2 (08:33→20:33)
--- NOTE | 2022-04-09 19:55 | P.PN ---
Subjective This is a pleasant 72 years old female with past medical history of erosive esophagitis that was diagnosed by EGD on 01/2022 Presents this time with coughing up of blood and odynophagia related to her erosive erosive esophagitis GI team already evaluated the patient and they cleared her for discharge, currently she is on a Protonix and Carafate. She still complained from symptoms of pain on eating which limits her ability to consume food and she has low appetite. On 01/29- earlier couple months ago she was in the hospital for colitis with r ecurrent abdominal pain and nausea vomiting, she was discharged with recommendation to follow up with Dr. Tony for outpatient EGD/colonoscopy. CT of the abdomen and pelvis with contrast on 01/29/2022: Nondistended sigmoid: With so ago thickening of the gamino correlate for colitis. No additional fi ndings within the abdomen and pelvis to correlate patient's symptomatology.. Suspect postsurgical changes of the gastroesophageal junction with persistent small hiatal hernia she underwent EGD on 02/15/2022 with findings of erosive esophagitis, no active bleeding, no ulcers. She was prescribed Carafate and protonix after her last EGD done at [facility] however patient states she stopped taking the medications due to financial cost. Patient is fully awake and oriented but she feels very weak and she thinks she cannot be discharged. She states she has low appetite and she is having itching problem she's been eating 0-25% of her meals. Also she complains from pain on eating. Also patient with epigastric pain and tenderness and to a lesser degree right upper tenderness but negative Singh sign. Also patient complaining of from lower abdomen tenderness, no guarding or rebound tenderness She denies any dysuria urgency but she complains from exertional dyspnea. No headaches or dizziness or weakness or numbness Denies smoking, alcohol or illicit drugs Patient has been afebrile but blood pressure was 90/47. Morning 113/69 She had mild leukocytosis on admission improved now. Hemoglobin 10.6. Creatinine 0.6 but BUN is elevated 23. Simple looks dehydrated Liver enzymes not elevated. Lipase normal. No imaging done during the admission Patient currently on lisinopril, hydrochlorothiazide, IV Protonix twice daily, normal saline at 75 mL/h Bladder scan was checked was 78 04/08/2022 Patient weakness is improved today after stopping her Xanax however she remains on home dose of narcotics. She still gets this pain for her back pain on her epigastric pain and odynophagia related to her erosive esophagitis. She remains on Protonix and Carafate. Urine culture is growing enterococcus and Augmentin was added pending final results. Lower normal saline to 50 mL per hour. 04/09/2022 Patient generalized weakness and severe backache start improving since yesterday and today after stopping her Xanax and starting antibiotic Augmentin for anterior enterococcus UTI Final results of the culture and sensitivity for UTI is still pending Her epigastric pain and odynophagia are slightly better today while she is still on a Protonix and Carafate She's also on normal saline at 50 mL per hour Objective - Vital Signs Vital signs: Vital Signs Temp 98.2 F 04/09/22 08:00 Pulse 60 04/09/22 08:00 Resp 16 04/09/22 08:00 BP 129/77 04/09/22 08:00 Pulse Ox 97 04/09/22 08:00 FiO2 Intake & Output 04/08/22 04/09/22 04/09/22 18:59 06:59 18:59 Intake Total 598 360 Balance 598 360 Intake: Oral 598 360 Other: Voiding Method Toilet Toilet Toilet # Voids 2 1 # Bowel Movements 2 - Exam -GENERAL: The patient is alert and oriented x3, not in any acute distress. Well developed, well nourished. Generally weak HEENT: Pupils are round and equally reacting to light. EOMI. No scleral icterus. No conjunctival pallor. Normocephalic, atraumatic. No pharyngeal erythema. No thyromegaly. CARDIOVASCULAR: S1 and S2 present. No murmurs, rubs, or gallops. PULMONARY: Chest is clear to auscultation, no wheezing or crackles. -ABDOMEN: Soft, mild epigastric tenderness and lower abdominal tenderness with no guarding or rebound tenderness, nondistended, normoactive bowel sounds. No palpable organomegaly. MUSCULOSKELETAL: No joint swelling or deformity. EXTREMITIES: No cyanosis, clubbing, or pedal edema. NEUROLOGICAL: Gross neurological examination did not reveal any focal deficits. SKIN: No rashes. no petechiae. - Labs CBC & Chem 7: 04/08/22 05:36 04/08/22 05:36 Labs: Microbiology - Last 24 Hours (Table) 04/07/22 14:56 Urine Culture - Preliminary Urine,Voided Group D Enterococcus Assessment and Plan Assessment: Enterococcus UTI Generalized weakness Erosive esophagitis, recently diagnosed. Coffee ground vomitus secondary to above, patient cleared by GI team noncompliance to medication because of financial issue, Present on admission Recent history of colitis about 2 months ago History of fibromyalgia and generalized weakness borderline low blood pressure Plan: Continue with Augmentin and follow-up urine culture Continue with Carafate and Protonix Monitor hemoglobin Patient was clear for discharge by GI team Resume lisinopril hydrochlorothiazide 20-12.5 mg Labs and medication were reviewed.. Continue same treatment. Continue with symptomatic treatment. Resume home medication. Monitor lytes and vitals. DVT and GI prophylaxis. Further recommendations as per clinical course of the patient DVT prophylaxis: no Subcutaneous heparin in view of GI symptoms and GI bleed GI Prophylaxis: Ppi PT/OWith subacute rehab for which patient agrees Prognosis is guarded
[2022-04-10] MEDS: SUCRALFATE 1 GM TAB PO SCH ×2 (05:42→11:38)
[2022-04-10] MEDS: HYDROcodone/APAP 10-325MG 1 EACH TAB PO PRN ×2 (05:51→13:39)
[2022-04-10] MEDS: SODIUM CHLORIDE 0.9% 1,000 ML IV SCH (05:52)
[2022-04-10 07:45] VITALS: RESP 15
[2022-04-10] MEDS: VENLAFAXINE HCL ER 150 MG CAP PO SCH (08:49)
[2022-04-10] MEDS: AMOXIC-POT CLAV 875-125MG 1 EACH TAB PO SCH (08:49)
[2022-04-10] MEDS: PANTOPRAZOLE 40 MG/10 ML VIAL IVP SCH (08:49)
[2022-04-10] MEDS: VENLAFAXINE HCL 75 MG TAB PO SCH (08:49)
[2022-04-10] MEDS: ARIPiprazole 5 MG TAB PO SCH (08:49)
[2022-04-10] MEDS: DOCUSATE 100 MG CAP PO SCH (08:58)
[2022-04-10] MEDS: polyethylene glycoL 3350 17 GM POWD.PACK PO SCH (08:58)
[2022-04-10 09:10] LABS: Basophils # (A) 0.02 X 10*3/uL (0.00-0.10); Basophils % (A) 0.4 %; Eosinophils # (A) 0.21 X 10*3/uL (0.04-0.35); Eosinophils % (A) 4.5 %; HCT 33.8 % (37.2-46.3); HGB 10.9 g/dL (12.0-15.0); Immature Grans, Automated 0 %; Lymphocytes # (A) 1.74 X 10*3/uL (0.90-5.00); Lymphocytes % (A) 37.3 %; MCH 29.6 pg (27.0-32.0); MCHC 32.2 g/dL (32.0-37.0); MCV 91.8 fL (80.0-97.0); Mean Platelet Volume 11.2 fL (9.5-12.2); Monocytes # (A) 0.47 X 10*3/uL (0.20-1.00); Monocytes % (A) 10.1 %; NRBC Per 100 WBC 0 /100 WBCS (0.0-0.0); Neutrophils # (A) 2.22 X 10*3/uL (1.80-7.70); Neutrophils % (A) 47.7 %; Platelet Count 212 X 10*3/uL (140-440); RBC 3.68 X 10*6/uL (4.10-5.20); RDW 12.5 % (11.5-14.5); WBC 4.66 X 10*3/uL (4.50-10.00)
[2022-04-10 09:19] LABS: African American GFR (CKD) 113.7 (60.0-200.0); Anion Gap 9.9 mmol/L (10.00-18.00); Blood Urea Nitrogen 8.5 mg/dL (9.0-27.0); Calcium 9.4 mg/dL (8.7-10.3); Carbon Dioxide 30.1 mmol/L (20.0-27.5); Non-African American GFR(CKD) 98.1 (60.0-200.0); Potassium 3.5 mmol/L (3.5-5.5)
[2022-04-10] MEDS: ONDANSETRON 4 MG/2 ML VIAL IVP PRN (10:08)
[2022-04-10] MEDS ORDERED: POTASSIUM CHLORIDE ER 20 MEQ TAB.ER PO STA (13:32)
--- NOTE | 2022-04-10 13:44 | P.DS ---
Providers Date of admission: 04/06/22 11:28 Attending physician: Rodo Dawn Consults: 04/04/22 17:30 Consult Physician Routine Consulting Provider: Annette Tony Consult Reason/Comments: Nausea vomiting, possible upper GI. Do you want consulting provider notified?: Yes Primary care physician: [facility] Course: Final Diagnosis Asymptomatic bacteriurea with enterococcus found on culture Generalized weakness Erosive esophagitis, recently diagnosed. Coffee ground emesis secondary to above, patient cleared by GI team noncompliance to medication because of financial issue, Present on admission Recent history of colitis about 2 months ago History of fibromyalgia and generalized weakness borderline low blood pressure Full Code Discharge Disposition Patient is stable for discharge to Subacute rehab. She has been cleared by GI services and will continue on carafate qid and protonix bid. Patient will repeat labs in 2 to 3 days. Educated on diet regarding recent diagnosis of erosive esophagitis and informational handout given. Patient will continue antibiotics for 1 more day. Continue low fiber diet. Hospital Course This is a pleasant 72 years old female with past medical history of erosive esophagitis that was diagnosed by EGD on 01/2022 at [facility]. Presents this time with coughing up of blood and odynophagia related to her erosive erosive esophagitis GI team already evaluated the patient and they cleared her for discharge, currently she is on a Protonix and Carafate. She still complained from symptoms of pain on eating which limits her ability to consume food and she has low appetite. She has been noncompliant with medications at home. She did have urinalysis done suggestive of possible infection and was found to be positive for enterococcus. She has denied dysuria, no urgency no frequency. No suprapubic pain or discomfort. She will complete 3 days of oral augmentin therapy. Labs have remained stable, creatinine 0.97. Patient did have some significant nausea which has improved and most likely secondary to antibiotic side effect. She has had some generalized weakness this admission and states she is unable to manage herself at home. States her home is in poor condition currently. She was evaluated for rehab and will be able to discharge to subacute rehab today. She is currently on low fiber diet and has tolerated well for the last 24 hours. She will be disccharged today. Patient did have chest xray this admission which is negative for acute disease. 04/10/2022 Patient evaluated today resting in bed. She is cleared for discharge with above recommendations. No chest pain, no shortness of breath. No nausea, vomiting, or diarrhea. She has not had a BM since yesterday. She denies dysuria. Focal neurological exam is negative, has some generalized weakness. Lungs are clear, S1 S2 auscultated, normoactive bowel sounds, soft and non tender. Most recent labs showing white count 4.66, hgb 10.9, sodium 144, potassium 3.5, BUN 8.5, creatinine 0.5. Magnesium 1.7. Temperature 98, heart rate 57, blood pressure 136/77, 97% room air. Repeat labs in 2 to 3 days. Please see medication reconciliation for a list of current medications. Thank you for allowing us to participate in the care of this patient. The impression and plan of care has been dictated by Yenny Hyman, Nurse Practitioner as directed. Dr. Mariya MD I have performed a history and physical examination and medical decision making of this patient, discussed the same with the dictator, and agree with the dictators assessment and plan as written, documented as a scribe. Based on total visit time, I have performed more than 50% of this visit. Patient Condition at Discharge: Stable Plan - Discharge Summary Discharge Rx Participant: No New Discharge Prescriptions: New Sucralfate [Carafate] 1 gm PO ACHS tab Magnesium Oxide [Mag-Ox] 250 mg PO DAILY #14 tab polyethylene glycoL 3350 [Miralax] 17 gm PO DAILY packet Pantoprazole Sodium [Protonix] 40 mg PO BID #60 tab Amoxic-Pot Clav 875-125Mg [Augmentin 875-125] 1 each PO Q12HR 1 Days #2 tab Docusate [Colace] 100 mg PO BID #0 cap Continue Lisinopril-Hctz 20-12.5 mg [Zestoretic 20-12.5] 1 tab PO DAILY Venlafaxine HCl ER [Effexor XR] 150 mg PO DAILY Venlafaxine HCl 75 mg PO DAILY ARIPiprazole [Abilify] 5 mg PO DAILY HYDROcodone/APAP 10-325MG [Brightwood 10-325] 1 tab PO Q8HR PRN 30 Days #90 tab PRN Reason: Pain Discharge Medication List HYDROcodone/APAP 10-325MG [Brightwood 10-325] 1 tab PO Q8HR PRN 30 Days #90 tab 11/01/20 [Rx] ARIPiprazole [Abilify] 5 mg PO DAILY 01/29/22 [History] Lisinopril-Hctz 20-12.5 mg [Zestoretic 20-12.5] 1 tab PO DAILY 01/29/22 [History] Venlafaxine HCl 75 mg PO DAILY 01/29/22 [History] Venlafaxine HCl ER [Effexor XR] 150 mg PO DAILY 01/29/22 [History] Amoxic-Pot Clav 875-125Mg [Augmentin 875-125] 1 each PO Q12HR 1 Days #2 tab 04/10/22 [Rx] Docusate [Colace] 100 mg PO BID #0 cap 04/10/22 [Rx] Magnesium Oxide [Mag-Ox] 250 mg PO DAILY #14 tab 04/10/22 [Rx] Pantoprazole Sodium [Protonix] 40 mg PO BID #60 tab 04/10/22 [Rx] Sucralfate [Carafate] 1 gm PO ACHS tab 04/10/22 [Rx] polyethylene glycoL 3350 [Miralax] 17 gm PO DAILY packet 04/10/22 [Rx] Follow up Appointment(s)/Referral(s): Annette Tony MD [STAFF PHYSICIAN] - 1 Week Jacquie Collins MD [Primary Care Provider] - 1-2 days Paresh Ace MD [STAFF PHYSICIAN] - 1 Week Ambulatory/Diagnostic Orders: Basic Metabolic Panel [LAB.AMB] Time Frame: 3 Days, Location: None Selected Magnesium [LAB.AMB] Location: None Selected Patient Instructions/Handouts: Corrosive Esophagitis (DC) Activity/Diet/Wound Care/Special Instructions: Continue augmentin for 1 more day Continue carafate 4 times a day Continue protonix 40 mg twice a day Avoid acidic foods Discharge Disposition: TRANSFER TO SNF/ECF
[2022-04-10 15:03] VITALS: BP 138/80; PULSE 69; TEMP 98.1
== END 2022-04-10 17:20 | DRG 381 ==
LOC: EC 15:26 → 6NMEDSUR 17:30 → OBSVTOIN 04-06 11:28
PROVIDERS: ADMIT Hospitalist; ATTEND Hospitalist
DX: K22.11 Ulcer of esophagus with bleeding (principal); E87.20 Acidosis, unspecified; N39.0 Urinary tract infection, site not specified; M06.9 Rheumatoid arthritis, unspecified; F19.11 Other psychoactive substance abuse, in remission; E83.52 Hypercalcemia; E86.0 Dehydration; K57.30 Diverticulosis of large intestine without perforation or abscess without bleeding; K29.70 Gastritis, unspecified, without bleeding; B95.2 Enterococcus as the cause of diseases classified elsewhere; R73.9 Hyperglycemia, unspecified; K58.9 Irritable bowel syndrome, unspecified; M54.9 Dorsalgia, unspecified; M54.2 Cervicalgia; G89.29 Other chronic pain; M19.90 Unspecified osteoarthritis, unspecified site; E78.5 Hyperlipidemia, unspecified; I10 Essential (primary) hypertension; M79.7 Fibromyalgia; M81.0 Age-related osteoporosis without current pathological fracture; K21.00 Gastro-esophageal reflux disease with esophagitis, without bleeding; I95.9 Hypotension, unspecified; F32.A Depression, unspecified; F41.0 Panic disorder [episodic paroxysmal anxiety]; F43.10 Post-traumatic stress disorder, unspecified; F10.11 Alcohol abuse, in remission; Z91.14 Patient's other noncompliance with medication regimen; Z98.1 Arthrodesis status; Z96.612 Presence of left artificial shoulder joint; Z90.12 Acquired absence of left breast and nipple; Z88.1 Allergy status to other antibiotic agents; Z91.040 Latex allergy status; Z88.2 Allergy status to sulfonamides; Z91.048 Other nonmedicinal substance allergy status; Z79.899 Other long term (current) drug therapy; Z87.891 Personal history of nicotine dependence; Z87.11 Personal history of peptic ulcer disease; Z87.19 Personal history of other diseases of the digestive system; Z88.3 Allergy status to other anti-infective agents; Z59.86 Financial insecurity; Z85.41 Personal history of malignant neoplasm of cervix uteri; Z90.710 Acquired absence of both cervix and uterus; Z91.199 Patient's noncompliance with other medical treatment and regimen due to unspecified reason; J40 Bronchitis, not specified as acute or chronic; Z92.21 Personal history of antineoplastic chemotherapy; Z92.3 Personal history of irradiation
CPT/HCPCS: 36415; 71046; 80048; 80053; 81001; 83690; 83735; 84145; 85025; 85027; 85610; 85730; 86850; 86900; 86901; 87077; 87086; 87186; 96361; 96374; 96375; 96376; 99285

== ENCOUNTER 2022-07-04 16:40 | Emergency (ER) | payer MEDICARE ==
--- NOTE | 2022-07-04 18:13 | XR ---
EXAMINATION TYPE: XR knee complete RT DATE OF EXAM: 07/04/2022 COMPARISON: NONE HISTORY: Pain TECHNIQUE: 3 views FINDINGS: There is no evidence of fracture nor dislocation. There is no sign of joint effusion. Joint spaces are fairly normal. There are small degenerative cyst formation in the patella. IMPRESSION: No acute abnormality of the right knee.
--- NOTE | 2022-07-04 18:15 | CT ---
EXAMINATION TYPE: CT brain cspine wo con DATE OF EXAM: 07/04/2022 COMPARISON: 09/01/2021 HISTORY: Fall. Lacerations to Rt side of face. CT DLP: 1022.1 mGycm Automated exposure control for dose reduction was used. Images of the brain and cervical spine obtained with no contrast. There is mild cerebral atrophy. There is no mass effect or midline shift. No sign of intracranial hem orrhage. The calvarium is intact. There is normal aeration of the mastoid sinuses. Skull base is inta ct. The cervical vertebra show anterior fusion surgery from C3 to C5. There is mild anterior subluxation of C5 in relation to C6. There is hypertrophic mild multilevel cervical facet arthropathy. No avis bernabe fracture. No focal bone destruction. Prevertebral soft tissues are intact. IMPRESSION: Mild cerebral atrophy. No acute intracranial abnormality. No change. Cervical spine fusion surgery. Degenerative first degree C5-6 spondylolisthesis. No fracture seen. No change compared to old exam.
--- NOTE | 2022-07-04 18:23 | CT ---
EXAMINATION TYPE: CT facial bones wo con DATE OF EXAM: 07/04/2022 COMPARISON: 09/02/2015 HISTORY: Fall. Lacerations to Rt side of face. CT DLP: 1022.1 mGycm Automated exposure control for dose reduction was used. Images obtained from the bottom of the mandible to the top of the frontal sinuses with no contrast. Mandibular ring is intact. Temporal bones show normal aeration. The zygomatic arches are intact axill a is intact no evidence of orbital blowout fracture. No evidence of retro-orbital mass. The globes ar e symmetric. Orbital margins are intact. There is fairly normal aeration of the paranasal sinuses. Th e parotid glands are symmetric. The submandibular salivary glands are symmetric. There is right side infraorbital and lateral soft tissue swelling. IMPRESSION: Right-sided periorbital soft tissue swelling. No fracture seen.
--- NOTE | 2022-07-04 18:32 | ED ---
General Adult HPI - General Chief complaint: Fall Stated complaint: head laceration Time Seen by Provider: 07/04/22 18:31 Source: patient, RN notes reviewed Mode of arrival: ambulatory - History of Present Illness Initial comments: 72-year-old female presents to the emergency department with a chief complaint of a fall. She notes that she slipped and fell from ground level on ice yesterday. She admits that she did hit her head however denies any loss of consciousness or and he anticoagulant use. She does note one bout of nausea and vomiting that occurred this morning however that has since resolved. She has been trying to take Tylenol at home with mild relief. She denies any dizziness, vision changes, diplopia, fatigue, chest pain, palpitations, abdominal pain. - Related Data Home Medications Medication Instructions Recorded Confirmed ARIPiprazole [Abilify] 5 mg PO DAILY 01/29/22 04/04/22 Lisinopril-Hctz 20-12.5 mg 1 tab PO DAILY 01/29/22 04/04/22 [Zestoretic 20-12.5] Venlafaxine HCl 75 mg PO DAILY 01/29/22 04/04/22 Venlafaxine HCl ER [Effexor XR] 150 mg PO DAILY 01/29/22 04/04/22 Previous Rx's Medication Instructions Recorded Amoxic-Pot Clav 875-125Mg 1 each PO Q12HR 1 Days #2 tab 04/10/22 [Augmentin 875-125] Docusate [Colace] 100 mg PO BID #0 cap 04/10/22 HYDROcodone/APAP 10-325MG [[place] 1 tab PO Q8HR PRN #4 tab 04/10/22 10-325] Magnesium Oxide [Mag-Ox] 250 mg PO DAILY #14 tab 04/10/22 Pantoprazole Sodium [Protonix] 40 mg PO BID #60 tab 04/10/22 Sucralfate [Carafate] 1 gm PO ACHS tab 04/10/22 polyethylene glycoL 3350 [Miralax] 17 gm PO DAILY packet 04/10/22 Ketorolac [Toradol] 10 mg PO Q8HR #15 tab 07/04/22 Allergies Allergy/AdvReac Type Severity Reaction Status Date / Time Sulfa (Sulfonamide Allergy Severe Rash/Hives Verified 07/04/22 16:53 Antibiotics) Tetracyclines Allergy Severe Rash/Hives Verified 07/04/22 16:53 latex Allergy Rash/Hives Verified 07/04/22 16:53 lorazepam [From Ativan] AdvReac Confusion Verified 07/04/22 16:53 TIDE AND EXTRA LAUNDRY SOAP Allergy Rash/Hives Uncoded 07/04/22 16:53 Review of Systems ROS Statement: Those systems with pertinent positive or pertinent negative responses have been documented in the HPI. ROS Other: All systems not noted in ROS Statement are negative. Past Medical History Past Medical History: Cancer, Fibromyalgia, GERD/Reflux, GI Bleed, Hyperlipidemia, Hypertension, Liver Disease, Osteoarthritis (OA), Rheumatoid Arthritis (RA), Syncope Additional Past Medical History / Comment(s): Past lower GI bleed, diverticulitis, colitis, IBS, gastric ulcer, hepatitis A, L breast cancer with surgeries/chemo and radiation, cervical cancer with surgery, bronchitis, osteoporosis, neuropathy bilateral feet and hands, chronic pain, past L humeral fracture, T11 spinal injury, chronic cervical and lumbar back pain, migraines, osteoarthritis and rheumatoid arthritis in multiple joints. past drug and etoh abuse- per ptclear for 26 years. History of Any Multi-Drug Resistant Organisms: None Reported Past Surgical History: Section, Hysterectomy, Joint Replacement, Orthopedic Surgery, Tonsillectomy Additional Past Surgical History / Comment(s): ORIF L humerus with carlos/screws since removed, total L shoulder arthroplasty, cervical and lumbar fusions, pain clinic procedures, D&C, bilateral breast reductions with nonhealing wound and had closure/skin grafting, L breast lumpectomies and then L breast mastectomy, R tympanoplasty, EGDs, colonoscopies, ivy fundoplasty, loop recorder. pain pump in left lower abd. Past Anesthesia/Blood Transfusion Reactions: No Reported Reaction Additional Past Anesthesia/Blood Transfusion Reaction / Comment(s): Pt received blood this admission without reaction. Past Psychological History: Anxiety, Depression, Panic Disorder, PTSD Smoking Status: Former smoker Past Alcohol Use History: None Reported Past Drug Use History: None Reported - Past Family History Mother Family Medical History: Myocardial Infarction ([place]) Additional Family Medical History / Comment(s): . General Exam General appearance: alert, in no apparent distress Head exam: Present: atraumatic, normocephalic, normal inspection, other (Mild swelling to R side of face with abrasion, no active bleeding. Tender to palpation, no crepitis ) Eye exam: Present: normal appearance, PERRL, EOMI. Absent: scleral icterus, conjunctival injection, periorbital swelling Pupils: Present: normal accommodation ENT exam: Present: normal exam, normal oropharynx, mucous membranes moist, TM's normal bilaterally, normal external ear exam Neck exam: Present: normal inspection. Absent: tenderness, meningismus, lymphadenopathy Respiratory exam: Present: normal lung sounds bilaterally. Absent: respiratory distress, wheezes, rales, rhonchi, stridor Cardiovascular Exam: Present: regular rate, normal rhythm, normal heart sounds. Absent: systolic murmur, diastolic murmur, rubs, gallop, clicks GI/Abdominal exam: Present: soft, normal bowel sounds. Absent: distended, tenderness, guarding, rebound, rigid Extremities exam: Present: normal inspection, full ROM, normal capillary refill. Absent: tenderness, pedal edema, joint swelling, calf tenderness Back exam: Present: normal inspection Neurological exam: Present: alert, oriented X3, CN II-XII intact Psychiatric exam: Present: normal affect, normal mood Skin exam: Present: warm, dry, intact, normal color. Absent: rash Course Vital Signs 07/04/22 07/04/22 16:51 20:03 Temperature 98.7 F 98.2 F Pulse Rate 76 72 Respiratory 16 18 Rate Blood Pressure 126/62 142/71 O2 Sat by Pulse 95 98 Oximetry Medical Decision Making - Medical Decision Making Was pt. sent in by a medical professional or institution (, PA, INVENTORY AUDIT CLERK, urgent care, hospital, or residential...) When possible be specific @ -[No] Did you speak to anyone other than the patient for history (EMS, parent, family, police, friend...)? What history was obtained from this source @ -[No] Did you review nursing and triage notes (agree or disagree)? Why? @ -[I reviewed and agree with nursing and triage notes] Were old charts reviewed (outside hosp., previous admission, EMS record, old EKG, old radiological studies, urgent care reports/EKG's, residential records)? Report findings @ -[No old charts were reviewed] Differential Diagnosis (chest pain, altered mental status, abdominal pain women, abdominal pain men, vaginal bleeding, weakness, fever, dyspnea, syncope, headache, dizziness, GI bleed, back pain, seizure, CVA, palpatations, mental health)? @ -[not applicable] EKG interpreted by me (3pts min.). @ -[As above] X-rays interpreted by me (1pt min.). @ -[None done] CT interpreted by me (1pt min.). @ -Head CT negative for any intracranial process. Patient CT negative for any acute fracture. U/S interpreted by me (1pt. min.). @ -[None done] What testing was considered but not performed or refused? (CT, X-rays, U/S, labs)? Why? @ -[None] What meds were considered but not given or refused? Why? @ -[None] Did you discuss the management of the patient with other professionals (professionals i.e. , PA, INVENTORY AUDIT CLERK, lab, RT, psych nurse, delinquency prevention social worker, burnisher and bumper, teacher, supply officer, case liner)? Give summary @ -[No] Was smoking cessation discussed for >3mins.? @ -[No] Was critical care preformed (if so, how long)? @ -[No] Were there social determinants of health that impacted care today? How? (Homelessness, low income, unemployed, alcoholism, drug addiction, transportation, low edu. Level, literacy, decrease access to med. care, half-way, rehab)? @ -[No] Was there de-escalation of care discussed even if they declined (Discuss DNR or withdrawal of care, Hospice)? DNR status @ -[No] What co-morbidities impacted this encounter? (DM, HTN, Smoking, COPD, CAD, Cancer, CVA, ARF, Chemo, Hep., AIDS, mental health diagnosis, sleep apnea, morbid obesity)? @ -[None] Was patient admitted / discharged? Hospital course, mention meds given and route, prescriptions, significant lab abnormalities, going to OR and other pertinent info. @ -72 year old female presents the emergency department for fall. Patient had a physical history and physical performed, physical exam reveals mild ecchymosis and abrasion to R per-orbital area. Patient had imagining performed which was essentially unremarkablle. Patient was given Toradol, zofran and one [place] with symptomatic relief on the emergency department. I discussed the results in detail with the patient. Return precautions were d iscussed. The patient was discharged in stable condition with recommended close follow-up with PCP in 1-2 days. I discussed the case with CAMRYN Johnson who agrees with the current plan. Undiagnosed new problem with uncertain prognosis? @ -[No] Drug Therapy requiring intensive monitoring for toxicity (Heparin, Nitro, Insulin, Cardizem)? @ -[No] Were any procedures done? @ -[No] Diagnosis/symptom? @ -fall - soft tissue swelling Acute, or Chronic, or Acute on Chronic? @ -acute Uncomplicated (without systemic symptoms) or Complicated (systemic symptoms)? @ -uncomplicated Side effects of treatment? @ -[No] Exacerbation, Progression, or Severe Exacerbation? @ -[No] Poses a threat to life or bodily function? How? (Chest pain, [place], [place], pneumonia, PE, COPD, DKA, ARF, appy, cholecystitis, CVA, Diverticulitis, Homicidal, Suicidal, threat to staff... and all critical care pts) @ -[No] Disposition Clinical Impression: Fall, Abrasion head Disposition: HOME SELF-CARE Condition: Stable Instructions (If sedation given, give patient instructions): Abrasion (ED), Fall Prevention (ED) Additional Instructions: Please return to the nearest emergency department if worsening headache, vision loss is in changes or dizziness persist Prescriptions: Ketorolac [Toradol] 10 mg PO Q8HR #15 tab Is patient prescribed a controlled substance at d/c from ED?: No Referrals: Jacquie Collins MD [Primary Care Provider] - 1-2 days Time of Disposition: 19:52
[2022-07-04] MEDS ORDERED: KETOROLAC 15 MG/ML 1 ML VIAL IM STA (18:53)
[2022-07-04] MEDS ORDERED: ONDANSETRON ODT 4 MG TAB PO STA (18:55)
[2022-07-04] MEDS ORDERED: HYDROcodone/APAP 5-325MG 1 EACH TAB PO STA (19:51)
[2022-07-04] MEDS ORDERED: ONDANSETRON 4 MG ODT STARTER PACK 2 TAB BTL PO STA (19:53)
[2022-07-04 20:03] VITALS: BP 142/71; PULSE 72; RESP 18; TEMP 98.2
== END 2022-07-04 20:03 | disposition home or self-care (01) ==
LOC: EC 16:40
DX: S01.81XA Laceration without foreign body of other part of head, initial encounter (principal); M43.12 Spondylolisthesis, cervical region; M47.812 Spondylosis without myelopathy or radiculopathy, cervical region; I10 Essential (primary) hypertension; F41.9 Anxiety disorder, unspecified; F32.A Depression, unspecified; Z87.891 Personal history of nicotine dependence; Z88.2 Allergy status to sulfonamides; Z88.8 Allergy status to other drugs, medicaments and biological substances; Z91.040 Latex allergy status; Z79.899 Other long term (current) drug therapy; W00.0XXA Fall on same level due to ice and snow, initial encounter
CPT/HCPCS: 73562; 72125; 70486; 70450; 99284; 96372; J1885; S0119

== ENCOUNTER 2023-12-17 15:28 | Inpatient (IN) | payer MEDICARE ==
--- NOTE | 2023-12-17 16:07 | ED ---
General Adult HPI - General Chief complaint: Nausea/Vomiting/Diarrhea Stated complaint: Nausea Time Seen by Provider: 12/17/23 15:45 Source: patient, EMS, RN notes reviewed, old records reviewed Mode of arrival: EMS Limitations: no limitations - History of Present Illness Initial comments: This is a 73-year-old female who presents to the emergency department stating she has had nausea vomiting diarrhea for 3 days. Previously she also has extreme body aches. Patient denies any shortness of breath difficulty breathing or cough. Patient denies any chest pain. Patient denies abdominal pain but she states she does have some abdominal cramping. Patient has a headache patient denies numbness or weakness. Patient denies any recent injury or trauma. Patient Nuys any dysuria hematuria urinary frequency. - Related Data Home Medications Medication Instructions Recorded Confirmed Lisinopril-Hctz 20-12.5 mg 1 tab PO DAILY 01/29/22 12/17/23 [Zestoretic 20-12.5] Venlafaxine HCl [Effexor XR] 75 mg PO DAILY 12/17/23 12/17/23 Previous Rx's Medication Instructions Recorded Pantoprazole Sodium [Protonix] 40 mg PO BID #60 tab 04/10/22 Allergies Allergy/AdvReac Type Severity Reaction Status Date / Time Sulfa (Sulfonamide Allergy Severe Rash/Hives Verified 12/17/23 19:21 Antibiotics) Tetracyclines Allergy Severe Rash/Hives Verified 12/17/23 19:21 latex Allergy Rash/Hives Verified 12/17/23 19:21 lorazepam [From Ativan] AdvReac Confusion Verified 12/17/23 19:21 TIDE AND EXTRA LAUNDRY SOAP Allergy Rash/Hives Uncoded 12/17/23 15:40 Review of Systems ROS Statement: Those systems with pertinent positive or pertinent negative responses have been documented in the HPI. ROS Other: All systems not noted in ROS Statement are negative. Past Medical History Past Medical History: Cancer, Fibromyalgia, GERD/Reflux, GI Bleed, Hyperlipidemia, Hypertension, Liver Disease, Osteoarthritis (OA), Rheumatoid Arthritis (RA), Syncope Additional Past Medical History / Comment(s): Past lower GI bleed, diverticulitis, colitis, IBS, gastric ulcer, hepatitis A, L breast cancer with surgeries/chemo and radiation, cervical cancer with surgery, bronchitis, osteoporosis, neuropathy bilateral feet and hands, chronic pain, past L humeral fracture, T11 spinal injury, chronic cervical and lumbar back pain, migraines, osteoarthritis and rheumatoid arthritis in multiple joints. past drug and etoh abuse- per ptclear for 26 years. History of Any Multi-Drug Resistant Organisms: None Reported Past Surgical History: Section, Hysterectomy, Joint Replacement, Orthopedic Surgery, Tonsillectomy Additional Past Surgical History / Comment(s): ORIF L humerus with carlos/screws since removed, total L shoulder arthroplasty, cervical and lumbar fusions, pain clinic procedures, D&C, bilateral breast reductions with nonhealing wound and had closure/skin grafting, L breast lumpectomies and then L breast mastectomy, R tympanoplasty, EGDs, colonoscopies, ivy fundoplasty, loop recorder. pain pump in left lower abd. Past Anesthesia/Blood Transfusion Reactions: No Reported Reaction Additional Past Anesthesia/Blood Transfusion Reaction / Comment(s): Pt received blood this admission without reaction. Past Psychological History: Anxiety, Depression, Panic Disorder, PTSD Smoking Status: Former smoker Past Alcohol Use History: None Reported Past Drug Use History: None Reported - Past Family History Mother Family Medical History: Myocardial Infarction (CO) Additional Family Medical History / Comment(s): . General Exam - General Exam Comments Initial Comments: GENERAL: Patient is well-developed and well-nourished. Patient is nontoxic and well- hydrated and is in mild distress. Took the patient's oral temperature and it was 101.4 ENT: Neck is soft and supple. No significant lymphadenopathy is noted. Oropharynx is clear. Moist mucous membranes. Neck has full range of motion without eliciting any pain. EYES: The sclera were anicteric and conjunctiva were pink and moist. Extraocular movements were intact and pupils were equal round and reactive to light. Eyelids were unremarkable. PULMONARY: Unlabored respirations. Good breath sounds bilaterally. No audible rales rhonchi or wheezing was noted. CARDIOVASCULAR: There is a regular rate and rhythm without any murmurs gallops or rubs. ABDOMEN: Soft and nontender with normal bowel sounds. SKIN: Skin is clear with no lesions or rashes and otherwise unremarkable. NEUROLOGIC: Patient is alert and oriented x3. Cranial nerves II through XII are grossly intact. Motor and sensory are also intact. Normal speech, volume and content. Symmetrical smile. MUSCULOSKELETAL: Normal extremities with adequate strength and full range of motion. LYMPHATICS: No significant lymphadenopathy is noted PSYCHIATRIC: Normal psychiatric evaluation. Limitations: no limitations Course Vital Signs 12/17/23 12/17/23 12/17/23 15:34 15:46 17:00 Temperature 98.9 F 101.4 F H Pulse Rate 121 H Respiratory 16 Rate Blood Pressure 176/78 177/100 O2 Sat by Pulse 95 Oximetry 12/17/23 12/17/23 17:30 20:05 Temperature 101.1 F H 100.7 F H Pulse Rate 92 Respiratory 16 Rate Blood Pressure 193/105 O2 Sat by Pulse 95 Oximetry Procedures - Sepsis Sepsis Focused Exam #1 Time Sepsis Criteria Met: 20:15 Sepsis Focused Exam Date: 12/17/23 Sepsis Focused Exam Time: 20:19 Sepsis Focused Exam Complete: Yes Vital Signs & RN Notes Reviewed: Yes Capillary Refill: < 2 Seconds: Fingers Peripheral Pulses: Normal: Radial (R) Skin Color: Normal for Patient Respiratory Exam: normal lung sounds Cardiovascular Exam: regular rate Medical Decision Making - Medical Decision Making EKG was interpreted by myself which shows a sinus rhythm at 100 bpm MI interval is 219 QRS is 78 QT interval 355 QTc is 412. Was pt. sent in by a medical professional or institution (, PA, SUSTAINMENT LOGISTICS ANALYST, urgent care, hospital, or halfway...) When possible be specific @ -No Did you speak to anyone other than the patient for history (EMS, parent, family, police, friend...)? What history was obtained from this source @ -No Did you review nursing and triage notes (agree or disagree)? Why? @ -I reviewed and agree with nursing and triage notes Were old charts reviewed (outside hosp., previous admission, EMS record, old EKG, old radiological studies, urgent care reports/EKG's, halfway records)? Report findings @ -No old charts were reviewed Differential Diagnosis (chest pain, altered mental status, abdominal pain women, abdominal pain men, vaginal bleeding, weakness, fever, dyspnea, syncope, headache, dizziness, GI bleed, back pain, seizure, CVA, palpatations, mental health, musculoskeletal)? @ -Differential Fever: Pneumonia, viral URI, endocarditis, myocarditis, pericarditis, otitis, sinusitis, peritonsillar Abscess, retropharyngeal Abscess, epiglottitis, peritonitis, appendicitis, Rama cystitis, diverticulitis, hepatitis, colitis, UTI, PID, TOA, pyelonephritis, prostatitis, epididymitis, meningitis, encephalitis, pulmonary embolism, CVA, thyroid storm, pancreatitis, adrenal crisis, cavernous sinus thrombosis, this is not meant to be an all-inclusive list. EKG interpreted by me (3pts min.). @ -As above X-rays interpreted by me (1pt min.). @ -Chest x-ray shows no acute normality CT interpreted by me (1pt min.). @ -CT scan shows no acute Ofirmev U/S interpreted by me (1pt. min.). @ -None done What testing was considered but not performed or refused? (CT, X-rays, U/S, labs)? Why? @ -None What meds were considered but not given or refused? Why? @ -None Did you discuss the management of the patient with other professionals (professionals i.e. , PA, SUSTAINMENT LOGISTICS ANALYST, lab, RT, psych nurse, social worker palliative care, executive director of marketing, teacher, health officer, wrapper caser)? Give summary @ -I spoke with Dr. Pope and he agreed to admit the patient admit the patient I wrote admitting orders Was smoking cessation discussed for >3mins.? @ -No Was critical care preformed (if so, how long)? @ -No Were there social determinants of health that impacted care today? How? (Homelessness, low income, unemployed, alcoholism, drug addiction, transportation, low edu. Level, literacy, decrease access to med. care, senior living, r ehab)? @ -No Was there de-escalation of care discussed even if they declined (Discuss DNR or withdrawal of care, Hospice)? DNR status @ -No What co-morbidities impacted this encounter? (DM, HTN, Smoking, COPD, CAD, Cancer, CVA, ARF, Chemo, Hep., AIDS, mental health diagnosis, sleep apnea, morbid obesity)? @ -None Was patient admitted / discharged? Hospital course, mention meds given and route, prescriptions, significant lab abnormalities, going to OR and other pertinent info. @ -Will be admitted to Dr. Pope and I will consult Dr. Salcedo Undiagnosed new problem with uncertain prognosis? @ -No Drug Therapy requiring intensive monitoring for toxicity (Heparin, Nitro, Insulin, Cardizem)? @ -No Were any procedures done? @ -No Diagnosis/symptom? @ -Sepsis Acute, or Chronic, or Acute on Chronic? @ -Acute Uncomplicated (without systemic symptoms) or Complicated (systemic symptoms)? @ - Side effects of treatment? @ -No Exacerbation, Progression, or Severe Exacerbation? @ -No Poses a threat to life or bodily function? How? (Chest pain, [place], CO, pneumonia, PE, COPD, DKA, ARF, appy, cholecystitis, CVA, Diverticulitis, Homicidal, Suicidal, threat to staff... and all critical care pts) @ -Yes this can lead to end organ dysfunction - Lab Data Result diagrams: 12/17/23 15:50 12/17/23 15:50 Lab Results 12/17/23 12/17/23 12/17/23 Range/Units 15:50 15:50 15:50 WBC 13.4 H (3.8-10.6) k/uL RBC 4.65 (3.80-5.40) m/uL Hgb 14.2 (11.4-16.0) gm/dL Hct 43.7 (34.0-46.0) % MCV 94.0 (80.0-100.0) fL MCH 30.6 (25.0-35.0) pg MCHC 32.5 (31.0-37.0) g/dL RDW 13.2 (11.5-15.5) % Plt Count 322 (150-450) k/uL MPV 7.8 Neutrophils % 86 % Lymphocytes % 9 % Monocytes % 4 % Eosinophils % 1 % Basophils % 0 % Neutrophils # 11.4 H (1.3-7.7) k/uL Lymphocytes # 1.2 (1.0-4.8) k/uL Monocytes # 0.6 (0-1.0) k/uL Eosinophils # 0.1 (0-0.7) k/uL Basophils # 0.0 (0-0.2) k/uL PT 11.1 (10.0-12.5) sec INR 1.0 (<1.2) APTT 19.8 L (22.0-30.0) sec Sodium 140 (137-145) mmol/L Potassium 3.3 L (3.5-5.1) mmol/L Chloride 106 (98-107) mmol/L Carbon Dioxide 18 L (22-30) mmol/L Anion Gap 16 mmol/L BUN 22 H (7-17) mg/dL Creatinine 0.47 L (0.52-1.04) mg/dL Est GFR (CKD-EPI)AfAm >90 (>60 ml/min/1.73 sqM) Est GFR (CKD-EPI)NonAf >90 (>60 ml/min/1.73 sqM) Glucose 180 H (74-99) mg/dL Lactic Ac Sepsis Rflx Plasma Lactic Acid Eliseo (0.7-2.0) mmol/L Calcium 10.7 H (8.4-10.2) mg/dL Total Bilirubin 0.9 (0.2-1.3) mg/dL AST 30 (14-36) U/L ALT 26 (4-34) U/L Alkaline Phosphatase 111 (38-126) U/L Total Protein 7.5 (6.3-8.2) g/dL Albumin 5.0 (3.5-5.0) g/dL Urine Color Urine Appearance (Clear) Urine pH (5.0-8.0) Ur Specific Branch (1.001-1.035) Urine Protein (Negative) Urine Glucose (UA) (Negative) Urine Ketones (Negative) Urine Blood (Negative) Urine Nitrite (Negative) Urine Bilirubin (Negative) Urine Urobilinogen (<2.0) mg/dL Ur Leukocyte Esterase (Negative) Urine RBC (0-5) /hpf Urine WBC (0-5) /hpf Ur Squamous Epith Cells (0-4) /hpf Urine Mucus (None) /hpf Influenza Type A (PCR) (Not Detectd) Influenza Type B (PCR) (Not Detectd) RSV (PCR) (Not Detectd) SARS-CoV-2 (PCR) (Not Detectd) 12/17/23 12/17/23 12/17/23 Range/Units 15:50 15:58 15:58 WBC (3.8-10.6) k/uL RBC (3.80-5.40) m/uL Hgb (11.4-16.0) gm/dL Hct (34.0-46.0) % MCV (80.0-100.0) fL MCH (25.0-35.0) pg MCHC (31.0-37.0) g/dL RDW (11.5-15.5) % Plt Count (150-450) k/uL MPV Neutrophils % % Lymphocytes % % Monocytes % % Eosinophils % % Basophils % % Neutrophils # (1.3-7.7) k/uL Lymphocytes # (1.0-4.8) k/uL Monocytes # (0-1.0) k/uL Eosinophils # (0-0.7) k/uL Basophils # (0-0.2) k/uL PT (10.0-12.5) sec INR (<1.2) APTT (22.0-30.0) sec Sodium (137-145) mmol/L Potassium (3.5-5.1) mmol/L Chloride (98-107) mmol/L Carbon Dioxide (22-30) mmol/L Anion Gap mmol/L BUN (7-17) mg/dL Creatinine (0.52-1.04) mg/dL Est GFR (CKD-EPI)AfAm (>60 ml/min/1.73 sqM) Est GFR (CKD-EPI)NonAf (>60 ml/min/1.73 sqM) Glucose (74-99) mg/dL Lactic Ac Sepsis Rflx Plasma Lactic Acid Eliseo 6.1 H* (0.7-2.0) mmol/L Calcium (8.4-10.2) mg/dL Total Bilirubin (0.2-1.3) mg/dL AST (14-36) U/L ALT (4-34) U/L Alkaline Phosphatase (38-126) U/L Total Protein (6.3-8.2) g/dL Albumin (3.5-5.0) g/dL Urine Color Colorless Urine Appearance Clear (Clear) Urine pH 6.0 (5.0-8.0) Ur Specific Branch 1.023 (1.001-1.035) Urine Protein 1+ H (Negative) Urine Glucose (UA) 2+ H (Negative) Urine Ketones 1+ H (Negative) Urine Blood Negative (Negative) Urine Nitrite Negative (Negative) Urine Bilirubin Negative (Negative) Urine Urobilinogen <2.0 (<2.0) mg/dL Ur Leukocyte Esterase Negative (Negative) Urine RBC 2 (0-5) /hpf Urine WBC 1 (0-5) /hpf Ur Squamous Epith Cells <1 (0-4) /hpf Urine Mucus Rare H (None) /hpf Influenza Type A (PCR) Not Detected (Not Detectd) Influenza Type B (PCR) Not Detected (Not Detectd) RSV (PCR) Not Detected (Not Detectd) SARS-CoV-2 (PCR) Not Detected (Not Detectd) 12/17/23 12/17/23 Range/Units 17:31 19:39 WBC (3.8-10.6) k/uL RBC (3.80-5.40) m/uL Hgb (11.4-16.0) gm/dL Hct (34.0-46.0) % MCV (80.0-100.0) fL MCH (25.0-35.0) pg MCHC (31.0-37.0) g/dL RDW (11.5-15.5) % Plt Count (150-450) k/uL MPV Neutrophils % % Lymphocytes % % Monocytes % % Eosinophils % % Basophils % % Neutrophils # (1.3-7.7) k/uL Lymphocytes # (1.0-4.8) k/uL Monocytes # (0-1.0) k/uL Eosinophils # (0-0.7) k/uL Basophils # (0-0.2) k/uL PT (10.0-12.5) sec INR (<1.2) APTT (22.0-30.0) sec Sodium (137-145) mmol/L Potassium (3.5-5.1) mmol/L Chloride (98-107) mmol/L Carbon Dioxide (22-30) mmol/L Anion Gap mmol/L BUN (7-17) mg/dL Creatinine (0.52-1.04) mg/dL Est GFR (CKD-EPI)AfAm (>60 ml/min/1.73 sqM) Est GFR (CKD-EPI)NonAf (>60 ml/min/1.73 sqM) Glucose (74-99) mg/dL Lactic Ac Sepsis Rflx Y Plasma Lactic Acid Eliseo 3.6 H* (0.7-2.0) mmol/L Calcium (8.4-10.2) mg/dL Total Bilirubin (0.2-1.3) mg/dL AST (14-36) U/L ALT (4-34) U/L Alkaline Phosphatase (38-126) U/L Total Protein (6.3-8.2) g/dL Albumin (3.5-5.0) g/dL Urine Color Urine Appearance (Clear) Urine pH (5.0-8.0) Ur Specific Branch (1.001-1.035) Urine Protein (Negative) Urine Glucose (UA) (Negative) Urine Ketones (Negative) Urine Blood (Negative) Urine Nitrite (Negative) Urine Bilirubin (Negative) Urine Urobilinogen (<2.0) mg/dL Ur Leukocyte Esterase (Negative) Urine RBC (0-5) /hpf Urine WBC (0-5) /hpf Ur Squamous Epith Cells (0-4) /hpf Urine Mucus (None) /hpf Influenza Type A (PCR) (Not Detectd) Influenza Type B (PCR) (Not Detectd) RSV (PCR) (Not Detectd) SARS-CoV-2 (PCR) (Not Detectd) Critical Care Time Critical Care Time: Yes Total Critical Care Time: 35 Disposition Clinical Impression: Sepsis, Gastroenteritis Disposition: ADMITTED IP TO THIS HOSP Referrals: Jose M Abreu DO [Primary Care Provider] - 1-2 days Time of Disposition: 20:26
[2023-12-17] MEDS: ACETAMINOPHEN TAB 500 MG TAB PO STA (16:25)
[2023-12-17] MEDS: IBUPROFEN 600 MG TAB PO STA (16:26)
[2023-12-17] MEDS: ONDANSETRON 4 MG/2 ML VIAL IVP STA ×2 (16:27→20:00)
[2023-12-17] MEDS: SODIUM CHLORIDE 0.9% 500 ML 500 ML IV SCH (16:36)
[2023-12-17 16:50] LABS: Basophils % (A) 0 %; Eosinophils # (A) 0.1 k/uL (0-0.7); Eosinophils % (A) 1 %; HCT 43.7 % (34.0-46.0); HGB 14.2 gm/dL (11.4-16.0); Lymphocytes # (A) 1.2 k/uL (1.0-4.8); Lymphocytes % (A) 9 %; MCH 30.6 pg (25.0-35.0); MCHC 32.5 g/dL (31.0-37.0); Mean Platelet Volume 7.8; Monocytes # (A) 0.6 k/uL (0-1.0); Monocytes % (A) 4 %; Neutrophils # (A) 11.4 k/uL (1.3-7.7); Neutrophils % (A) 86 %; Platelet Count 322 k/uL (150-450); RBC 4.65 m/uL (3.80-5.40); RDW 13.2 % (11.5-15.5); WBC 13.4 k/uL (3.8-10.6)
[2023-12-17 17:02] LABS: Prothrombin Time 11.1 sec (10.0-12.5)
[2023-12-17 17:05] LABS: AST 30 U/L (14-36); African American GFR (CKD) >90 (>60 ml/min/1.73 sqM); Alkaline Phosphatase 111 U/L (38-126); Anion Gap 16 mmol/L; Blood Urea Nitrogen 22 mg/dL (7-17); Calcium 10.7 mg/dL (8.4-10.2); Carbon Dioxide 18 mmol/L (22-30); Chloride 106 mmol/L (98-107); Glucose 180 mg/dL (74-99); Non-African American GFR(CKD) >90 (>60 ml/min/1.73 sqM); Potassium 3.3 mmol/L (3.5-5.1); Sodium 140 mmol/L (137-145); Total Bilirubin 0.9 mg/dL (0.2-1.3); Total Protein 7.5 g/dL (6.3-8.2)
[2023-12-17 17:13] LABS: ALT 26 U/L (4-34)
[2023-12-17 17:24] LABS: Partial Thromboplastin Time 19.8 sec (22.0-30.0)
--- NOTE | 2023-12-17 18:01 | XR ---
EXAMINATION TYPE: XR chest 2V DATE OF EXAM: 12/17/2023 COMPARISON: 04/07/2010 HISTORY: Fever TECHNIQUE: Frontal and lateral views of the chest are obtained. FINDINGS: There is no focal air space opacity, pleural effusion, or pneumothorax seen. The cardiac silhouette size is within normal limits. There is a reverse left shoulder prosthesis. There is a cardiac recorder. There are moderate compression fractures in the lower thoracic upper lumbar spine of indeterminate ag e. There is vertebral plasty glue in one of the vertebral segments likely in the upper thoracic spine . IMPRESSION: No acute cardiopulmonary process. Osseous abnormalities as described above.
[2023-12-17 18:46] LABS: Appearance,Urine Clear (Clear); Bilirubin,Urine Negative (Negative); Blood,Urine Negative (Negative); Color,Urine Colorless; Glucose,Urine (UA) 2+ (Negative); Ketones,Urine 1+ (Negative); Leukocyte Esterase,Urine Negative (Negative); Mucus,Urine Rare /hpf; Nitrite,Urine Negative (Negative); Protein,Urine 1+ (Negative); RBC,Urine 2 /hpf (0-5); Specific Gravity,Urine 1.023 (1.001-1.035); Squamous Epithelial Cell,Urine <1 /hpf (0-4); Urobilinogen,Urine <2.0 mg/dL (<2.0); WBC,Urine 1 /hpf (0-5)
[2023-12-17] MEDS: SODIUM CHLORIDE 0.9% 1,000 ML IV ONE ×2 (19:15→20:45)
[2023-12-17] MEDS: SODIUM CHLORIDE 0.9% 500 ML 500 ML IV ONE (19:16)
--- NOTE | 2023-12-17 19:35 | CT ---
EXAMINATION TYPE: CT abdomen pelvis w con DATE OF EXAM: 12/17/2023 COMPARISON: 02/14/2022 HISTORY: Lower abdominal pain with nausea. CT DLP: 981.6 mGycm Automated exposure control for dose reduction was used. TECHNIQUE: Helical acquisition of images was performed from the lung bases through the pelvis. CONTRAST: Performed without Oral Contrast and with IV Contrast, patient injected with 100 cc mL of Isovue 300. FINDINGS: The lung bases are clear. There is a moderate hiatal hernia. The gallbladder is normal without wall thickening, distention or gallstones.. There is no biliary eric tomás dilatation. There is no focal mass or organomegaly involving the liver, pancreas, spleen or adrenal glands. There is resection of the left lobe of the liver. There is no solid renal mass or hydronephrosis and there is homogeneous contrast enhancement of the r enal parenchyma. The caliber the abdominal aorta is normal is no retroperitoneal adenopathy or hemorr carey. The bowel loops are normal in caliber and there is no evidence of dilatation or obstruction. No infla mmatory changes are identified in the bowel wall or mesentery. There is no free intraperitoneal air or fluid. There is surgical absence of uterus. The osseous structures and soft tissues are intact. IMPRESSION: 1. Moderate hiatal hernia 2. Partial hepatectomy and hysterectomy 3. No acute changes within the abdomen or pelvis.
[2023-12-17] MEDS: HYDROmorphone 0.5 MG/0.5 ML SYRINGE IVP STA (20:01)
[2023-12-17] MEDS: ACETAMINOPHEN TAB 325 MG TAB PO STA (20:46)
[2023-12-17] MEDS: PANTOPRAZOLE 40 MG TABLET PO SCH (20:46)
[2023-12-17] MEDS: hydrALAZINE HCL 20 MG/ML 1 ML VIAL IVP STA (20:47)
[2023-12-18] MEDS: MORPHINE SULFATE 2 MG/ML SYRINGE IVP STA ×2 (00:05→05:39)
--- NOTE | 2023-12-18 01:59 | P.HPIM ---
History of Present Illness H&P Date: 12/18/23 Patient is a 73-year-old female with a PMH of hypertension and history of breast cancer status postmastectomy (in remission for the past 20 years) who presents to the emergency room with complaints of fever, nausea, vomiting, and abdominal pain. Patient reports her symptoms started roughly 3 to 4 days ago and have gradually progressed. She reports diffuse abdominal discomfort which is worsened with nausea. She has been unable to tolerate even water during this time and has had little to no oral intake. Reports that over the past 24 hours she has not developed fevers which prompted her to come to the emergency room. Reports feeling generalized weakness. Denies experiencing headaches, cough, lower extremity pain or swelling. Denies any recent sick contacts. Also reports a sharp pleuritic sternal chest discomfort which is worsened with retching. CT abdomen and pelvis in the emergency room revealed a moderate hiatal hernia with evidence of a partial hepatectomy and hysterectomy with no acute abnormalities. EKG in the emergency room revealed sinus tachycardia with first- degree AV block at 100 bpm as reviewed by me. Chest x-ray was unremarkable. The patient had a Tmax of 101.4 F in the emergency room. Laboratory evaluation was remarkable for WBC count 13.4, lactic acid 6.1 and subsequently 3.6, potassium 3.3, BUN 22, creatinine 0.47, with an unremarkable UA with respiratory viral panel including influenza, RSV, and COVID-negative. ED documentation reviewed and case discussed with ED provider. Review of systems: Pertinent positives and negatives as discussed in HPI, a complete review of systems was performed and all other systems are negative. Physical examination: Vital signs reviewed General: non toxic, no distress, appears at stated age, normal weight Derm: no unusual rashes/lesions, warm Head: atraumatic, normocephalic, symmetric Eyes: EOMI, no lid lag, anicteric sclera, pupils equal round reactive to light ENT: Nose and ears atraumatic Neck: No cervical lymphadenopathy, trachea midline, supple Mouth: no lip lesion, mucus membranes moist Cardiovascular: S1S2 reg, no murmur, positive dorsalis pedis pulse bilateral, no edema Lungs: CTA bilateral, no rhonchi, no rales, no accessory muscle use Abdominal: soft, mild diffuse tenderness, no guarding Ext: muscle strength 4 out of 5 in all 4 extremities grossly, no gross muscle atrophy, no contractures, Neuro: CN II-XI grossly intact, no gross focal neuro deficits Psych: Alert, oriented, appropriate affect Assessment: SIRS without obvious infectious etiology, suspect secondary to gastroenteritis Lactic acidosis, likely due to above Hypokalemia Chronic conditions: Hypertension Imaging: CT abdomen and pelvis in the emergency room revealed a moderate hiatal hernia with evidence of a partial hepatectomy and hysterectomy with no acute abnormalities. EKG in the emergency room revealed sinus tachycardia with first- degree AV block at 100 bpm as reviewed by me. Chest x-ray was unremarkable. Data Review: The patient had a Tmax of 101.4 F in the emergency room. Laboratory evaluation was remarkable for WBC count 13.4, lactic acid 6.1 and subsequently 3.6, potassium 3.3, BUN 22, creatinine 0.47, with an unremarkable UA with respiratory viral panel including influenza, RSV, and COVID-negative. Plan: Start patient on normal saline 130 cc/h Follow-up blood cultures Continue with empiric antibiotics including ceftriaxone 1 g daily C. difficile testing Infectious disease consulted Continue with antiemetics Placed potassium and monitor for resolution Follow-up lactic acid levels for resolution Resume patient's home lisinopril but hold off on hydrochlorothiazide DVT prophylaxis: Lovenox The patient is admitted with an anticipated greater than 2 midnight stay for evaluation of SIRS CODE STATUS: Full Code Discussed with: Patient Anticipated discharge place: Home Past Medical History Past Medical History: Cancer, Fibromyalgia, GERD/Reflux, GI Bleed, Hyperlipidemia, Hypertension, Liver Disease, Osteoarthritis (OA), Rheumatoid Arthritis (RA), Syncope Additional Past Medical History / Comment(s): Past lower GI bleed, diverticulitis, colitis, IBS, gastric ulcer, hepatitis A, L breast cancer with surgeries/chemo and radiation, cervical cancer with surgery, bronchitis, osteoporosis, neuropathy bilateral feet and hands, chronic pain, past L humeral fracture, T11 spinal injury, chronic cervical and lumbar back pain, migraines, osteoarthritis and rheumatoid arthritis in multiple joints. past drug and etoh abuse- per ptclear for 26 years. History of Any Multi-Drug Resistant Organisms: None Reported Past Surgical History: Section, Hysterectomy, Joint Replacement, Orthopedic Surgery, Tonsillectomy Additional Past Surgical History / Comment(s): ORIF L humerus with carlos/screws since removed, total L shoulder arthroplasty, cervical and lumbar fusions, pain clinic procedures, D&C, bilateral breast reductions with nonhealing wound and had closure/skin grafting, L breast lumpectomies and then L breast mastectomy, R tympanoplasty, EGDs, colonoscopies, ivy fundoplasty, loop recorder. pain pump in left lower abd. Past Anesthesia/Blood Transfusion Reactions: No Reported Reaction Additional Past Anesthesia/Blood Transfusion Reaction / Comment(s): Pt received blood this admission without reaction. Past Psychological History: Anxiety, Depression, Panic Disorder, PTSD Smoking Status: Former smoker Past Alcohol Use History: None Reported Past Drug Use History: None Reported - Past Family History Mother Family Medical History: Myocardial Infarction ([place]) Additional Family Medical History / Comment(s): . Medications and Allergies Home Medications Medication Instructions Recorded Confirmed Type Lisinopril-Hctz 20-12.5 mg 1 tab PO DAILY 01/29/22 12/17/23 History [Zestoretic 20-12.5] Pantoprazole Sodium [Protonix] 40 mg PO BID #60 tab 04/10/22 12/17/23 Rx Venlafaxine HCl [Effexor XR] 75 mg PO DAILY 12/17/23 12/17/23 History Allergies Allergy/AdvReac Type Severity Reaction Status Date / Time Sulfa (Sulfonamide Allergy Severe Rash/Hives Verified 12/17/23 19:21 Antibiotics) Tetracyclines Allergy Severe Rash/Hives Verified 12/17/23 19:21 latex Allergy Rash/Hives Verified 12/17/23 19:21 lorazepam [From Ativan] AdvReac Confusion Verified 12/17/23 19:21 TIDE AND EXTRA LAUNDRY SOAP Allergy Rash/Hives Uncoded 12/17/23 15:40 Physical Exam Vitals: Vital Signs Temp Pulse Resp BP Pulse Ox 12/18/23 00:02 102 H 18 173/87 98 12/17/23 22:40 99.5 F 106 H 18 145/85 99 12/17/23 22:22 100.0 F H 12/17/23 21:51 110 H 18 154/89 12/17/23 21:24 99.7 F H 113 H 20 128/95 100 12/17/23 20:40 100.0 F H 12/17/23 20:05 100.7 F H 92 16 193/105 95 12/17/23 17:30 101.1 F H 12/17/23 17:00 177/100 12/17/23 15:46 101.4 F H 12/17/23 15:34 98.9 F 121 H 16 176/78 95 Intake and Output 12/17/23 12/17/23 12/18/23 14:59 22:59 06:59 Other: Weight 58.967 kg Results CBC & Chem 7: 12/17/23 15:50 12/17/23 15:50 Labs: Abnormal Lab Results - Last 24 Hours (Table) 12/17/23 12/17/23 12/17/23 Range/Units 15:50 15:50 15:50 WBC 13.4 H (3.8-10.6) k/uL Neutrophils # 11.4 H (1.3-7.7) k/uL APTT 19.8 L (22.0-30.0) sec Potassium 3.3 L (3.5-5.1) mmol/L Carbon Dioxide 18 L (22-30) mmol/L BUN 22 H (7-17) mg/dL Creatinine 0.47 L (0.52-1.04) mg/dL Glucose 180 H (74-99) mg/dL Plasma Lactic Acid Eliseo (0.7-2.0) mmol/L Calcium 10.7 H (8.4-10.2) mg/dL Urine Protein (Negative) Urine Glucose (UA) (Negative) Urine Ketones (Negative) Urine Mucus (None) /hpf 12/17/23 12/17/23 12/17/23 Range/Units 15:58 15:58 19:39 WBC (3.8-10.6) k/uL Neutrophils # (1.3-7.7) k/uL APTT (22.0-30.0) sec Potassium (3.5-5.1) mmol/L Carbon Dioxide (22-30) mmol/L BUN (7-17) mg/dL Creatinine (0.52-1.04) mg/dL Glucose (74-99) mg/dL Plasma Lactic Acid Eliseo 6.1 H* 3.6 H* (0.7-2.0) mmol/L Calcium (8.4-10.2) mg/dL Urine Protein 1+ H (Negative) Urine Glucose (UA) 2+ H (Negative) Urine Ketones 1+ H (Negative) Urine Mucus Rare H (None) /hpf 12/17/23 Range/Units 22:16 WBC (3.8-10.6) k/uL Neutrophils # (1.3-7.7) k/uL APTT (22.0-30.0) sec Potassium (3.5-5.1) mmol/L Carbon Dioxide (22-30) mmol/L BUN (7-17) mg/dL Creatinine (0.52-1.04) mg/dL Glucose (74-99) mg/dL Plasma Lactic Acid Eliseo 2.8 H* (0.7-2.0) mmol/L Calcium (8.4-10.2) mg/dL Urine Protein (Negative) Urine Glucose (UA) (Negative) Urine Ketones (Negative) Urine Mucus (None) /hpf
[2023-12-18] MEDS: traZODone HCL 50 MG TAB PO STA (02:45)
[2023-12-18] MEDS: TRIMETHOBENZAMIDE 100 MG/ML 2 ML VIAL IM ONE (05:40)
[2023-12-18] MEDS: POTASSIUM CHLORIDE 10 MEQ in WATER FOR INJECTION 1 100ML.BAG IVPB SCH (05:49)
[2023-12-18 06:40] LABS: HCT 37.7 % (34.0-46.0); HGB 12.4 gm/dL (11.4-16.0); MCH 31.1 pg (25.0-35.0); MCV 94.5 fL (80.0-100.0); Mean Platelet Volume 7.7; Platelet Count 259 k/uL (150-450); RBC 3.99 m/uL (3.80-5.40); RDW 13.1 % (11.5-15.5)
[2023-12-18 06:46] LABS: African American GFR (CKD) >90 (>60 ml/min/1.73 sqM); Anion Gap 9 mmol/L; Blood Urea Nitrogen 10 mg/dL (7-17); Calcium 9.6 mg/dL (8.4-10.2); Carbon Dioxide 23 mmol/L (22-30); Chloride 106 mmol/L (98-107); Glucose 122 mg/dL (74-99); Non-African American GFR(CKD) >90 (>60 ml/min/1.73 sqM); Potassium 2.8 mmol/L (3.5-5.1); Sodium 138 mmol/L (137-145)
[2023-12-18] MEDS ORDERED: ACETAMINOPHEN TAB 325 MG TAB PO PRN (07:35)
[2023-12-18] MEDS: PROCHLORPERAZINE INJ 10 MG/2 ML VIAL IVP PRN (08:01)
[2023-12-18] MEDS: ENOXAPARIN 40 MG/0.4 ML SYRINGE SQ SCH (08:01)
[2023-12-18] MEDS: LACTATED RINGERS 1,000 ML IV SCH (08:01)
[2023-12-18] MEDS ORDERED: LISINOPRIL-HCTZ 20-12.5 MG 1 EACH TAB PO SCH (09:00)
[2023-12-18] MEDS: lisinopriL 20 MG TAB PO SCH (09:13)
[2023-12-18] MEDS: MORPHINE SULFATE 4 MG/ML SYRINGE IV PRN (09:13)
--- NOTE | 2023-12-18 10:09 | P.PN ---
Subjective Progress Note Date: 12/18/23 Hospital course: Patient is a very pleasant 73-year-old female with a past medical history of hypertension, hyperlipidemia, rheumatoid arthritis, fibromyalgia, GERD, chronic back pain, anxiety with depression, and breast cancer status post L mastectomy/chemo/radiation in remission. He presented to the hospital on 12/17/2023 chief complaint of fever, nausea, vomiting, and abdominal pain. Upon arrival to our facility, patient underwent evaluation in the emergency department. Vital signs upon arrival show blood pressure 176/78, heart rate 121, respiratory rate 16, temp 101.4 F, and SpO2 of 95% on room air. EKG was completed showing sinus tachycardia at 100 bpm with a first-degree AV block with HI interval of 219 ms. Chest x-ray completed negative for acute cardiopulmonary process. Labs completed and reviewed. CBC showing leukocytosis with WBC count of 13.4. Coagulation profile showing low PTT of 19.8. BMP showing hypokalemia with potassium of 3.3 and hypocarbia with bicarb of 18 with elevated anion gap of 16. Renal function showing mild prerenal azotemia with BUN of 22.8 and blood glucose of 180. Initial lactate 6.1. Calcium also elevated at 10.7. Liver profile unremarkable. Urinalysis negative for infection. Influenza A, influenza B, RSV, and COVID PCR negative. Abdomen and pelvis with IV contrast completed showing moderate hiatal hernia and partial hepatectomy and hysterectomy otherwise negative for acute changes within the abdomen or pelvis reported. Patient admitted under our services with consultation to infectious disease. Physical exam: Vital signs reviewed and stable. General: Nontoxic, no distress and appears stated age. Derm: Skin warm and dry, normal coloration for ethnicity. Head: Atraumatic, normocephalic and symmetric. Eyes: EOMs intact, no lid lag, and anicteric sclera Mouth: no lip lesions, mucus membranes moist Cardiovascular: regular rate and rhythm with normal S1S2, no murmur, positive posterior tibial pulses bilaterally, and cap refill < 2 seconds. Lungs: Respirations even, regular, and unlabored on room air. Lungs CTA bilaterally, no rhonchi, no rales, no wheezing, and no accessory muscle usage. Abdominal: soft, nontender to palpation, no guarding, no appreciable organomegaly Ext: ROM intact. No gross muscle atrophy, no edema, no contractures Neuro: Speech clear, face symmetrical and CN II-XII grossly intact with no noted focal neuro deficits Psych: Alert and oriented to person, place, time, and situation. Appropriate and pleasant affect. Assessment and Plan of Care: Sepsis upon arrival, unclear source suspect gastroenteritis Diffuse abdominal pain accompanied by intractable nausea and vomiting Hypokalemia Acute on chronic lower back pain -Continue empiric IV antibiotics with Zosyn 3.375 g every 8 hours -Order placed for CT lumbar spine secondary to patient's reports of acute on chronic lower back pain -Follow-up on blood culture results. -Order placed for lipase and magnesium levels -Potassium replaced with potassium chloride 10 mEq IVPB x 4 doses. -Continued close monitoring with repeat to light levels and replace electrolyte abnormalities as indicated based upon these findings. -Tylenol 650 mg p.o. every 6 hours as needed for mild pain/fever. -Compazine 10 mg IVP every 6 hours as needed for nausea/vomiting. -Continue gentle IV fluid hydration with lactated Ringer's at 100 cc/h. -GI prophylaxis with Protonix 40 mg twice daily. -Clear liquid diet, will advance as patient tolerates Lactic acidosis, Lactic acidosis resolved from initial lactate of 6.1 with morning lactate of 1.9 after sepsis bolus and aggressive IV fluid hydration. High anion gap metabolic acidosis, resolved with IV fluid hydration Hypercalcemia, resolved with IV fluid hydration Hypertension -Continue lisinopril 20 mg daily Depression and anxiety -Continue Effexor XR 75 mg daily. Data and imaging reviewed: Abdomen and pelvis with IV contrast completed showing moderate hiatal hernia and partial hepatectomy and hysterectomy otherwise negative for acute changes within the abdomen or pelvis reported. Vital signs reviewed. Blood pressure 150/86, heart rate 87, respiratory rate 20, temp 99.7 F, and SpO2 of 99% on room air. Morning labs reviewed. CBC showing leukocytosis with WBC count of 14.0. BMP revealing hypokalemia with potassium of 2.8 and glucose of 122. Calcium normal findings at 9.6. Repeat lactate 1.9. Order placed for CT lumbar spine, lipase, and magnesium levels. Will follow-up on results once available and place additional orders if indicated based upon findings. CODE STATUS: Full code DVT prophylaxis: Lovenox Anticipated discharge date: Pending clinical course Anticipated discharge place: Home Patient was seen independently by Nurse Pracitioner. This document was prepared using [employer] dictation software. Please allow for errors in senior java ui developer, while rare they do occur. Jad Woodruff, [employer] rendered care for this patient independently, reviewed the findings and plan as documented in the note above. I did not physically speak with or examine the patient on this date. Objective - Vital Signs Vital signs: Vital Signs Temp 100.0 F H 12/18/23 03:30 Pulse 76 12/18/23 03:30 Resp 16 12/18/23 03:30 BP 156/76 12/18/23 03:30 Pulse Ox 98 12/18/23 03:30 FiO2 Intake & Output 12/17/23 12/18/23 12/18/23 18:59 06:59 18:59 Weight 58.967 kg 60.9 kg - Labs CBC & Chem 7: 12/18/23 06:12 12/18/23 06:12 Labs: Abnormal Lab Results - Last 24 Hours (Table) 12/17/23 12/17/23 12/17/23 Range/Units 15:50 15:50 15:50 WBC 13.4 H (3.8-10.6) k/uL Neutrophils # 11.4 H (1.3-7.7) k/uL APTT 19.8 L (22.0-30.0) sec Potassium 3.3 L (3.5-5.1) mmol/L Carbon Dioxide 18 L (22-30) mmol/L BUN 22 H (7-17) mg/dL Creatinine 0.47 L (0.52-1.04) mg/dL Glucose 180 H (74-99) mg/dL Plasma Lactic Acid Eliseo (0.7-2.0) mmol/L Calcium 10.7 H (8.4-10.2) mg/dL Urine Protein (Negative) Urine Glucose (UA) (Negative) Urine Ketones (Negative) Urine Mucus (None) /hpf 12/17/23 12/17/23 12/17/23 Range/Units 15:58 15:58 19:39 WBC (3.8-10.6) k/uL Neutrophils # (1.3-7.7) k/uL APTT (22.0-30.0) sec Potassium (3.5-5.1) mmol/L Carbon Dioxide (22-30) mmol/L BUN (7-17) mg/dL Creatinine (0.52-1.04) mg/dL Glucose (74-99) mg/dL Plasma Lactic Acid Eliseo 6.1 H* 3.6 H* (0.7-2.0) mmol/L Calcium (8.4-10.2) mg/dL Urine Protein 1+ H (Negative) Urine Glucose (UA) 2+ H (Negative) Urine Ketones 1+ H (Negative) Urine Mucus Rare H (None) /hpf 12/17/23 12/18/23 12/18/23 Range/Units 22:16 06:12 06:12 WBC 14.0 H (3.8-10.6) k/uL Neutrophils # (1.3-7.7) k/uL APTT (22.0-30.0) sec Potassium 2.8 L (3.5-5.1) mmol/L Carbon Dioxide (22-30) mmol/L BUN (7-17) mg/dL Creatinine 0.44 L (0.52-1.04) mg/dL Glucose 122 H (74-99) mg/dL Plasma Lactic Acid Eliseo 2.8 H* (0.7-2.0) mmol/L Calcium (8.4-10.2) mg/dL Urine Protein (Negative) Urine Glucose (UA) (Negative) Urine Ketones (Negative) Urine Mucus (None) /hpf
[2023-12-18] MEDS: PIPERACILLIN-TAZOBACTAM 3.375 GM in SODIUM CHLORIDE 0.9% 100 ML IVPB SCH (10:15)
[2023-12-18] MEDS: VENLAFAXINE HCL ER 75 MG CAP PO SCH (10:15)
[2023-12-18 10:17] LABS: Magnesium 1.1 mg/dL (1.6-2.3)
[2023-12-18] MEDS: MAGNESIUM SULFATE-D5W PMX 1 GM in DEXTROSE/WATER 1 100ML.BAG IVPB SCH (10:25)
--- NOTE | 2023-12-18 13:38 | CT ---
EXAMINATION TYPE: CT lumbar spine wo con CT DLP: 981 mGycm, Automated exposure control for dose reduction was used. DATE OF EXAM: 12/18/2023 1:18 PM COMPARISON: 12/25/2020. CLINICAL INDICATION:Female, 73 years old with history of acute on chronic lower back pain; [facility], TECHNIQUE: Images taken from one day prior CT abdomen pelvis and reformatted for lumbar spine evalua tion. Multiple axial images were obtained from the midportion of T11 through the sacroiliac joints. Soft tissue and bone windows in coronal and sagittal planes were obtained and reviewed. Contrast used: mL of , contrast given for the CT abdomen pelvis exam was reformatted. Oral contrast used: (None, if empty). FINDINGS: Alignment: There are 5 lumbar type vertebral bodies within normal alignment. Bone: Stable compression deformity of T11 and T12 superior endplate. There is severe degeneration raman nges at the adjoining L2-L3 endplates with complete height loss. Vertebroplasty changes in the L2 amdalyn tebral body. Fixation hardware at L4-L5 and S1 appears intact. Discectomy at L4-L5 and L5-S1. Mild sc attered neural foraminal stenosis throughout the visualized spine. Within the limitations of the examination streak artifact. The spinal canal appears patent. There are stimulator leads terminates in the thecal sac. Moderate hiatal hernia. IMPRESSION: Postsurgical changes spine without evidence of acute fracture. No evidence for significant spinal can al or neural foraminal stenosis.
[2023-12-18 22:43] LABS: Glucose,Whole Blood 113 mg/dL (70-110)
--- NOTE | 2023-12-18 22:43 | P.CONS ---
History of Present Illness - Reason for Consult Consult date: 12/18/23 Sepsis Requesting physician: Robby Yeh - Chief Complaint Vomiting abdominal pain x 3 days - History of Present Illness Patient is a 73-year-old female with a past medical history significant for hypertension hyperlipidemia osteoarthritis rheumatoid arthritis reflux fibromyalgia T11 spinal injury presenting to the hospital yesterday afternoon for evaluation of nausea vomiting and abdominal pain that started on Sunday that is 3 days before presentation to the hospital patient started with vomiting and did have mostly epigastric abdominal pain patient describes the pain to be sharp moderate intensity without any radiation and did have multiple episodes of vomiting patient denies having any diarrhea and apparently did not have a bowel monitor the last 2 days patient mention she felt warm however did not take any temperature with the send the patient presented to hospital on arrival to the ER patient was initially afebrile subsequently spiked a fever of 101.4 F patient was not tachycardic or hypertensive not hypoxic or need for supplemental oxygen patient did have a white count of 13.4 creatinine has been normal lactic acid was elevated repeat is normal liver exam has been normal lipase was normal urine has been negative influenza RSV COVID testing has been negative patient did have a chest x-ray no acute cardiopulmonary disease process patient also have a CT abdominal pelvis that was done without contrast did shows moderate hiatal hernia partial hepatectomy and hysterectomy no acute change within the abdominal pelvis patient has been started on Zosyn empirically infectious disease was consulted for further management of antibiotic therapy Review of Systems Positive point and negatives has been mentioned in the HPI, complete review of systems was performed and all other systems are negative Past Medical History Past Medical History: Cancer, Fibromyalgia, GERD/Reflux, GI Bleed, Hyperlipidemia, Hypertension, Liver Disease, Osteoarthritis (OA), Rheumatoid Arthritis (RA), Syncope Additional Past Medical History / Comment(s): Past lower GI bleed, diverticulitis, colitis, IBS, gastric ulcer, hepatitis A, L breast cancer with surgeries/chemo and radiation, cervical cancer with surgery, bronchitis, osteoporosis, neuropathy bilateral feet and hands, chronic pain, past L humeral fracture, T11 spinal injury, chronic cervical and lumbar back pain, migraines, osteoarthritis and rheumatoid arthritis in multiple joints. past drug and etoh abuse- per ptclear for 26 years. History of Any Multi-Drug Resistant Organisms: None Reported Past Surgical History: Section, Hysterectomy, Joint Replacement, Orthopedic Surgery, Tonsillectomy Additional Past Surgical History / Comment(s): ORIF L humerus with carlos/screws since removed, total L shoulder arthroplasty, cervical and lumbar fusions, pain clinic procedures, D&C, bilateral breast reductions with nonhealing wound and had closure/skin grafting, L breast lumpectomies and then L breast mastectomy, R tympanoplasty, EGDs, colonoscopies, ivy fundoplasty, loop recorder. pain pump in left lower abd. Past Anesthesia/Blood Transfusion Reactions: No Reported Reaction Additional Past Anesthesia/Blood Transfusion Reaction / Comm: Pt received blood this admission without reaction. Past Psychological History: Anxiety, Depression, Panic Disorder, PTSD Smoking Status: Former smoker Past Alcohol Use History: None Reported Past Drug Use History: None Reported - Past Family History Mother Family Medical History: Myocardial Infarction ([place]) Additional Family Medical History / Comment(s): . Medications and Allergies Home Medications Medication Instructions Recorded Confirmed Type Lisinopril-Hctz 20-12.5 mg 1 tab PO DAILY 01/29/22 12/17/23 History [Zestoretic 20-12.5] Pantoprazole Sodium [Protonix] 40 mg PO BID #60 tab 04/10/22 12/17/23 Rx Venlafaxine HCl [Effexor XR] 75 mg PO DAILY 12/17/23 12/17/23 History Allergies Allergy/AdvReac Type Severity Reaction Status Date / Time Sulfa (Sulfonamide Allergy Severe Rash/Hives Verified 12/17/23 19:21 Antibiotics) Tetracyclines Allergy Severe Rash/Hives Verified 12/17/23 19:21 latex Allergy Rash/Hives Verified 12/17/23 19:21 lorazepam [From Ativan] AdvReac Confusion Verified 12/17/23 19:21 TIDE AND EXTRA LAUNDRY SOAP Allergy Rash/Hives Uncoded 12/17/23 15:40 Physical Exam Vitals: Vital Signs Temp Pulse Pulse Resp BP BP Pulse Ox 12/18/23 07:57 99.7 F H 87 20 150/86 99 12/18/23 07:14 99.1 F 12/18/23 03:30 100.0 F H 76 16 156/76 98 12/18/23 01:12 98.9 F 88 18 153/73 99 12/18/23 00:02 102 H 18 173/87 98 12/17/23 22:40 99.5 F 106 H 18 145/85 99 12/17/23 22:22 100.0 F H 12/17/23 21:51 110 H 18 154/89 12/17/23 21:24 99.7 F H 113 H 20 128/95 100 12/17/23 20:40 100.0 F H 12/17/23 20:05 100.7 F H 92 16 193/105 95 12/17/23 17:30 101.1 F H 12/17/23 17:00 177/100 12/17/23 15:46 101.4 F H 12/17/23 15:34 98.9 F 121 H 16 176/78 95 Intake and Output 12/17/23 12/18/23 12/18/23 22:59 06:59 14:59 Other: Voiding Method Toilet Weight 58.967 kg 60.9 kg GENERAL DESCRIPTION: Elderly female lying in bed, no distress. No tachypnea or accessory muscle of respiration use. HEENT: Shows Pallor , no scleral icterus. Oral mucous membrane is dry. No pharyngeal erythema or thrush NECK: Trachea central, no thyromegaly. LUNGS: Unlabored breathing. Clear to auscultation anteriorly. No wheeze or crackle. HEART: S1, S2, regular rate and rhythm. No loud murmur ABDOMEN: Soft, mild epigastric tenderness , no guarding or rigidity, no organomegaly EXTREMITIES: No edema of feet. SKIN: No rash, no masses palpable. NEUROLOGICAL: The patient is awake, alert, oriented x3, mood and affect normal. Results CBC & Chem 7: 12/18/23 06:12 12/18/23 06:12 Labs: Abnormal Lab Results - Last 24 Hours (Table) 12/17/23 12/17/23 12/17/23 Range/Units 15:50 15:50 15:50 WBC 13.4 H (3.8-10.6) k/uL Neutrophils # 11.4 H (1.3-7.7) k/uL APTT 19.8 L (22.0-30.0) sec Potassium 3.3 L (3.5-5.1) mmol/L Carbon Dioxide 18 L (22-30) mmol/L BUN 22 H (7-17) mg/dL Creatinine 0.47 L (0.52-1.04) mg/dL Glucose 180 H (74-99) mg/dL Plasma Lactic Acid Eliseo (0.7-2.0) mmol/L Calcium 10.7 H (8.4-10.2) mg/dL Magnesium (1.6-2.3) mg/dL Urine Protein (Negative) Urine Glucose (UA) (Negative) Urine Ketones (Negative) Urine Mucus (None) /[facility] 12/17/23 12/17/23 12/17/23 Range/Units 15:58 15:58 19:39 WBC (3.8-10.6) k/uL Neutrophils # (1.3-7.7) k/uL APTT (22.0-30.0) sec Potassium (3.5-5.1) mmol/L Carbon Dioxide (22-30) mmol/L BUN (7-17) mg/dL Creatinine (0.52-1.04) mg/dL Glucose (74-99) mg/dL Plasma Lactic Acid Eliseo 6.1 H* 3.6 H* (0.7-2.0) mmol/L Calcium (8.4-10.2) mg/dL Magnesium (1.6-2.3) mg/dL Urine Protein 1+ H (Negative) Urine Glucose (UA) 2+ H (Negative) Urine Ketones 1+ H (Negative) Urine Mucus Rare H (None) /[facility] 12/17/23 12/18/23 12/18/23 Range/Units 22:16 06:12 06:12 WBC 14.0 H (3.8-10.6) k/uL Neutrophils # (1.3-7.7) k/uL APTT (22.0-30.0) sec Potassium 2.8 L (3.5-5.1) mmol/L Carbon Dioxide (22-30) mmol/L BUN (7-17) mg/dL Creatinine 0.44 L (0.52-1.04) mg/dL Glucose 122 H (74-99) mg/dL Plasma Lactic Acid Eliseo 2.8 H* (0.7-2.0) mmol/L Calcium (8.4-10.2) mg/dL Magnesium (1.6-2.3) mg/dL Urine Protein (Negative) Urine Glucose (UA) (Negative) Urine Ketones (Negative) Urine Mucus (None) /[facility] 12/18/23 Range/Units 09:34 WBC (3.8-10.6) k/uL Neutrophils # (1.3-7.7) k/uL APTT (22.0-30.0) sec Potassium (3.5-5.1) mmol/L Carbon Dioxide (22-30) mmol/L BUN (7-17) mg/dL Creatinine (0.52-1.04) mg/dL Glucose (74-99) mg/dL Plasma Lactic Acid Eliseo (0.7-2.0) mmol/L Calcium (8.4-10.2) mg/dL Magnesium 1.1 L (1.6-2.3) mg/dL Urine Protein (Negative) Urine Glucose (UA) (Negative) Urine Ketones (Negative) Urine Mucus (None) /hpf Assessment and Plan (1) Gastroenteritis Current Visit: Yes Status: Acute Code(s): K52.9 - NONINFECTIVE GASTROENTERITIS AND COLITIS, UNSPECIFIED SNOMED Code(s): 41617345 (2) Sepsis Current Visit: Yes Status: Acute Code(s): A41.9 - SEPSIS, UNSPECIFIED ORGANISM SNOMED Code(s): 31388635 Plan: 1patient [facility] hospital with sepsis in this patient who did have a fever elevated white count source likely abdominal in this patient presenting symptoms with vomiting and abdominal pain did not have diarrhea patient did have initial CT abdominal pelvis that was done without any oral contrast and did not show any acute findings still suspicious high for intra-abdominal source with no concern for pneumonia or UTI no evidence of any cellulitis or joint swelling 2-we will recommend repeating CT abdominal pelvis with oral contrast once her nausea vomiting resolved for better definition of underlying intra-abdominal pathology 3-continue with the Zosyn while waiting for the culture to finalize We will follow on clinical condition and cultures to further adjust medication if needed Thank you for this consultation we will follow the patient along with you Dictation was produced using [employer] dictation software. please excuse any grammatical, word or spelling errors. Time with Patient: Greater than 30
--- NOTE | 2023-12-19 10:58 | P.PN ---
Subjective Progress Note Date: 12/19/23 Hospital course: Patient is a very pleasant 73-year-old female with a past medical history of hypertension, hyperlipidemia, rheumatoid arthritis, fibromyalgia, GERD, chronic back pain, anxiety with depression, and breast cancer status post L mastectomy/chemo/radiation in remission. He presented to the hospital on 12/17/2023 chief complaint of fever, nausea, vomiting, and abdominal pain. Upon arrival to our facility, patient underwent evaluation in the emergency department. Vital signs upon arrival show blood pressure 176/78, heart rate 121, respiratory rate 16, temp 101.4 F, and SpO2 of 95% on room air. EKG was completed showing sinus tachycardia at 100 bpm with a first-degree AV block with [place] interval of 219 ms. Chest x-ray completed negative for acute cardiopulmonary process. Labs completed and reviewed. CBC showing leukocytosis with WBC count of 13.4. Coagulation profile showing low PTT of 19.8. BMP showing hypokalemia with potassium of 3.3 and hypocarbia with bicarb of 18 with elevated anion gap of 16. Renal function showing mild prerenal azotemia with BUN of 22.8 and blood glucose of 180. Initial lactate 6.1. Calcium also elevated at 10.7. Liver profile unremarkable. Urinalysis negative for infection. Influenza A, influenza B, RSV, and COVID PCR negative. Abdomen and pelvis with IV contrast completed showing moderate hiatal hernia and partial hepatectomy and hysterectomy otherwise negative for acute changes within the abdomen or pelvis reported. Patient admitted under our services with consultation to infectious disease. Physical exam: Patient seen and fully evaluated at bedside this morning, she continues to have mild diffuse tenderness throughout abdomen and reports continued nausea but states severe episode of nausea and vomiting overnight. She continues to deny any episodes of diarrhea or any other complaints. Patient has remained afebrile for greater than 24 hours. Return nausea and if no further episodes of vomiting may advance diet to full liquids later today. Vital signs reviewed and stable. General: Nontoxic, no distress and appears stated age. Derm: Skin warm and dry, normal coloration for ethnicity. Head: Atraumatic, normocephalic and symmetric. Eyes: EOMs intact, no lid lag, and anicteric sclera Mouth: no lip lesions, mucus membranes moist Cardiovascular: regular rate and rhythm with normal S1S2, no murmur, positive posterior tibial pulses bilaterally, and cap refill < 2 seconds. Lungs: Respirations even, regular, and unlabored on room air. Lungs CTA bilaterally, no rhonchi, no rales, no wheezing, and no accessory muscle usage. Abdominal: soft, diffuse tenderness palpation, no guarding, no appreciable organomegaly Ext: ROM intact. No gross muscle atrophy, no edema, no contractures Neuro: Speech clear, face symmetrical and CN II-XII grossly intact with no noted focal neuro deficits Psych: Alert and oriented to person, place, time, and situation. Appropriate and pleasant affect. Assessment and Plan of Care: Sepsis upon arrival, unclear source suspect gastroenteritis Diffuse abdominal pain accompanied by intractable nausea and vomiting Hypokalemia Hypomagnesemia -Continue empiric IV antibiotics with Zosyn 3.375 g every 8 hours -Follow-up on blood culture results. -Order placed for lipase and magnesium levels -Potassium replaced with potassium chloride 10 mEq IVPB x 4 doses. -Continued close monitoring with repeat to light levels and replace electrolyte abnormalities as indicated based upon these findings. -Tylenol 650 mg p.o. every 6 hours as needed for mild pain/fever. -Compazine 10 mg IVP every 6 hours as needed for nausea/vomiting. -Continue gentle IV fluid hydration with lactated Ringer's at 100 cc/h. -Continue GI prophylaxis with Protonix 40 mg twice daily. -Patient tolerating clear liquid diet, will advance to full liquid diet at this time. Acute on chronic lower back pain -CT lumbar spine showing postsurgical changes without evidence for acute fra cture or stenosis. Lactic acidosis, Lactic acidosis resolved from initial lactate of 6.1 with morning lactate of 1.9 after sepsis bolus and aggressive IV fluid hydration. High anion gap metabolic acidosis, resolved with IV fluid hydration Hypercalcemia, resolved with IV fluid hydration Hypertension -Continue lisinopril 20 mg daily Depression and anxiety -Continue Effexor XR 75 mg daily. Data and imaging reviewed: CT lumbar spine showing postsurgical changes without evidence for acute fracture or stenosis. Vital signs reviewed. Blood pressure 150/83, heart rate 77, respiratory rate 18, temp 98.4 F, and SpO2 of 96% on room air. Morning labs reviewed. CBC showing resolution of leukocytosis with WBC count decreasing from 14.0 down to 7.2 this morning. BMP showing persistent hypokalemia with potassium of 2.8 and hypomagnesemia with magnesium of 1.6. Liver profile remains unremarkable. CODE STATUS: Full code DVT prophylaxis: Lovenox Anticipated discharge date: Pending clinical course Anticipated discharge place: Home Patient was seen independently by Nurse Pracitioner. This document was prepared using [employer] dictation software. Please allow for errors in electric motor tester, while rare they do occur. Jad Woodruff [employer]ENDING TRADER rendered care for this patient independently, reviewed the findings and plan as documented in the note above. I did not physically speak with or examine the patient on this date. Objective - Vital Signs Vital signs: Vital Signs Temp 98.4 F 12/19/23 08:00 Pulse 77 12/19/23 08:00 Resp 18 12/19/23 08:00 BP 150/83 12/19/23 08:00 Pulse Ox 96 12/19/23 08:00 FiO2 Intake & Output 12/18/23 12/19/23 12/19/23 18:59 06:59 18:59 Intake Total 0 550 Balance 0 550 Weight 61 kg Intake: Oral 0 550 Other: Voiding Method Toilet Toilet Diaper # Voids 2 0 - Labs CBC & Chem 7: 12/19/23 10:20 12/19/23 10:20 Labs: Abnormal Lab Results - Last 24 Hours (Table) 12/18/23 12/18/23 Range/Units 09:34 22:42 POC Glucose (mg/dL) 113 H (70-110) mg/dL Magnesium 1.1 L (1.6-2.3) mg/dL Microbiology - Last 24 Hours (Table) 12/17/23 16:00 Blood Culture - Preliminary Blood 12/17/23 16:15 Blood Culture - Preliminary Blood
[2023-12-19 11:37] LABS: HCT 36.8 % (34.0-46.0); HGB 11.9 gm/dL (11.4-16.0); MCH 30.4 pg (25.0-35.0); MCHC 32.2 g/dL (31.0-37.0); MCV 94.2 fL (80.0-100.0); Mean Platelet Volume 8.2; Platelet Count 217 k/uL (150-450); RBC 3.91 m/uL (3.80-5.40); RDW 12.8 % (11.5-15.5); WBC 7.2 k/uL (3.8-10.6)
[2023-12-19 11:44] LABS: ALT 11 U/L (4-34); AST 26 U/L (14-36); African American GFR (CKD) >90 (>60 ml/min/1.73 sqM); Albumin 3.9 g/dL (3.5-5.0); Alkaline Phosphatase 94 U/L (38-126); Anion Gap 5 mmol/L; Blood Urea Nitrogen 8 mg/dL (7-17); Calcium 9.6 mg/dL (8.4-10.2); Carbon Dioxide 27 mmol/L (22-30); Chloride 105 mmol/L (98-107); Glucose 102 mg/dL (74-99); Magnesium 1.6 mg/dL (1.6-2.3); Non-African American GFR(CKD) >90 (>60 ml/min/1.73 sqM); Potassium 2.8 mmol/L (3.5-5.1); Sodium 137 mmol/L (137-145); Total Bilirubin 1.3 mg/dL (0.2-1.3); Total Protein 6.1 g/dL (6.3-8.2)
[2023-12-19] MEDS: MAGNESIUM SULFATE-D5W PMX 1 GM in DEXTROSE/WATER 1 100ML.BAG IVPB SCH (15:27)
[2023-12-19] MEDS: POTASSIUM CHLORIDE 10 MEQ in WATER FOR INJECTION 1 100ML.BAG IVPB SCH (15:28)
[2023-12-19] MEDS: POTASSIUM CHLORIDE ER 20 MEQ TAB.ER PO SCH (15:29)
--- NOTE | 2023-12-19 16:46 | P.PN ---
Subjective Progress Note Date: 12/19/23 Principal diagnosis: Reason for follow-up is fever/abdominal source Patient is a 73-year-old female with a past medical history significant for hypertension hyperlipidemia osteoarthritis rheumatoid arthritis reflux fibromyalgia T11 spinal injury presenting to the hospital for evaluation of abdominal pain and vomiting did have a fever with initial CT done without contrast did not show any acute intra-abdominal pathology. On today's evaluation that is 12/19/2023,the patient did have resolution of her fever and denies any fever or any chills, patient is breathing comfortably on room air, the patient denies chest pain shortness of breath and no significant cough, patient still have some nausea but no vomiting some right upper quadrant abdominal pain no diarrhea. Patient white count normalized to 7.2, creatinine 0.48 Objective - Vital Signs Vital signs: Vital Signs Temp 98.4 F 12/19/23 12:00 Pulse 81 12/19/23 12:00 Resp 18 12/19/23 12:26 BP 134/76 12/19/23 12:00 Pulse Ox 97 12/19/23 12:00 FiO2 Intake & Output 12/18/23 12/19/23 12/19/23 18:59 06:59 18:59 Intake Total 0 550 Balance 0 550 Weight 61 kg Intake: Oral 0 550 Other: Voiding Method Toilet Toilet Toilet Diaper Diaper # Voids 2 0 - Exam GENERAL DESCRIPTION: An elderly female lying in bed in no distress RESPIRATORY SYSTEM: Unlabored breathing , decreased breath sounds at bases HEART: S1 S2 regular rate and rhythm , ABDOMEN: Soft , no tenderness EXTREMITIES: No edema feet - Labs CBC & Chem 7: 12/19/23 10:20 12/19/23 10:20 Labs: Abnormal Lab Results - Last 24 Hours (Table) 12/18/23 12/19/23 Range/Units 22:42 10:20 Potassium 2.8 L (3.5-5.1) mmol/L Creatinine 0.48 L (0.52-1.04) mg/dL Glucose 102 H (74-99) mg/dL POC Glucose (mg/dL) 113 H (70-110) mg/dL Total Protein 6.1 L (6.3-8.2) g/dL Microbiology - Last 24 Hours (Table) 12/17/23 16:00 Blood Culture - Preliminary Blood 12/17/23 16:15 Blood Culture - Preliminary Blood Assessment and Plan (1) Gastroenteritis Current Visit: Yes Status: Acute Code(s): K52.9 - NONINFECTIVE GASTROENTERITIS AND COLITIS, UNSPECIFIED SNOMED Code(s): 42324248 (2) Sepsis Current Visit: Yes Status: Acute Code(s): A41.9 - SEPSIS, UNSPECIFIED ORGANISM SNOMED Code(s): 84700092 Plan: 1patient presented hospital with sepsis in this patient who did have a fever elevated white count source likely abdominal in this patient presenting symptoms with vomiting and abdominal pain did not have diarrhea patient did have initial CT abdominal pelvis that was done without any oral contrast and did not show any acute findings still suspicious high for intra-abdominal source with no concern for pneumonia or UTI no evidence of any cellulitis or joint swelling 2-patient did have improvement of her nausea and vomiting we will obtain CT abdominal pelvis with oral contrast to better define underlying intra-abdominal pathology 3-continue with the Zosyn while waiting for the workup to be completed Dictation was produced using [employer] dictation software. please excuse any grammatical, word or spelling errors. Time with Patient: Less than 30
[2023-12-20 08:34] LABS: HCT 34.6 % (34.0-46.0); HGB 11.2 gm/dL (11.4-16.0); MCH 31.3 pg (25.0-35.0); MCHC 32.5 g/dL (31.0-37.0); MCV 96.3 fL (80.0-100.0); Mean Platelet Volume 7.6; Platelet Count 202 k/uL (150-450); RBC 3.59 m/uL (3.80-5.40); RDW 12.9 % (11.5-15.5)
[2023-12-20 08:53] LABS: ALT 12 U/L (4-34); African American GFR (CKD) >90 (>60 ml/min/1.73 sqM); Albumin 3.5 g/dL (3.5-5.0); Anion Gap 4 mmol/L; Blood Urea Nitrogen 8 mg/dL (7-17); Calcium 9.3 mg/dL (8.4-10.2); Carbon Dioxide 25 mmol/L (22-30); Chloride 110 mmol/L (98-107); Glucose 80 mg/dL (74-99); Non-African American GFR(CKD) >90 (>60 ml/min/1.73 sqM); Sodium 139 mmol/L (137-145); Total Bilirubin 1.2 mg/dL (0.2-1.3); Total Protein 5.7 g/dL (6.3-8.2)
[2023-12-20 08:54] LABS: AST 29 U/L (14-36); Alkaline Phosphatase 66 U/L (38-126); Potassium 3.8 mmol/L (3.5-5.1)
[2023-12-20] MEDS: IOPAMIDOL CONTRAST (ORAL USE) VIAL PO PRN (10:07)
--- NOTE | 2023-12-20 12:52 | CT ---
EXAMINATION TYPE: CT abdomen pelvis w con CT DLP: 1047.9 mGycm, Automated exposure control for dose reduction was used. DATE OF EXAM: 12/20/2023 12:05 PM COMPARISON: CT abdomen pelvis most recent from 12/17/2023 CLINICAL INDICATION:Female, 73 years old with history of Abdominal pain vomiting, sepsis; pain, vomit ing, sepsis TECHNIQUE: Axial CT abdomen pelvis w con;Sagittal and coronal reformats were created on a separate w orkstation. Contrast used:100ml mL of Isovue 300 with IV Contrast, (none if empty) Oral contrast used: with Oral Contrast (none if empty) FINDINGS: Loop recorder partially visualized. LOWER CHEST: Small moderate hiatal hernia. ABDOMEN LIVER: Unremarkable GALLBLADDER AND BILE DUCTS: Unremarkable. PANCREAS: Unremarkable. SPLEEN: Unremarkable. ADRENAL GLANDS: Unremarkable. KIDNEYS AND URETERS: No evidence of hydronephrosis or renal calculus. The ureters are unremarkable. PELVIS BLADDER: Unremarkable REPRODUCTIVE: Unremarkable. ABDOMEN & PELVIS STOMACH AND BOWEL: No evidence of bowel obstruction. PERITONEUM/RETROPERITONEUM: No evidence of pneumoperitoneum or free fluid. VASCULATURE: No evidence of aortic aneurysm. MUSCULOSKELETAL: No acute osseous abnormalities, fixation hardware at L4-L5 and S1 appears intact. Ch anges to LYMPH NODES: No gross evidence for lymphadenopathy. SOFT TISSUE/ABDOMINAL WALL: There are stimulator device with leads terminating in the posterior back and extending into the thecal sac. IMPRESSION: 1. No evidence for acute intra-abdominal process to explain the patient's sepsis. 2. Colonic diverticulosis. 3. Small lateral hernia.
--- NOTE | 2023-12-20 13:14 | P.PN ---
Subjective Progress Note Date: 12/20/23 Hospital course: Patient is a very pleasant 73-year-old female with a past medical history of hypertension, hyperlipidemia, rheumatoid arthritis, fibromyalgia, GERD, chronic back pain, anxiety with depression, and breast cancer status post L mastectomy/chemo/radiation in remission. He presented to the hospital on 12/17/2023 chief complaint of fever, nausea, vomiting, and abdominal pain. Upon arrival to our facility, patient underwent evaluation in the emergency department. Vital signs upon arrival show blood pressure 176/78, heart rate 121, respiratory rate 16, temp 101.4 F, and SpO2 of 95% on room air. EKG was completed showing sinus tachycardia at 100 bpm with a first-degree AV block with NE interval of 219 ms. Chest x-ray completed negative for acute cardiopulmonary process. Labs completed and reviewed. CBC showing leukocytosis with WBC count of 13.4. Coagulation profile showing low PTT of 19.8. BMP showing hypokalemia with potassium of 3.3 and hypocarbia with bicarb of 18 with elevated anion gap of 16. Renal function showing mild prerenal azotemia with BUN of 22.8 and blood glucose of 180. Initial lactate 6.1. Calcium also elevated at 10.7. Liver profile unremarkable. Urinalysis negative for infection. Influenza A, influenza B, RSV, and COVID PCR negative. Abdomen and pelvis with IV contrast completed showing moderate hiatal hernia and partial hepatectomy and hysterectomy otherwise negative for acute changes within the abdomen or pelvis reported. Patient admitted under our services with consultation to infectious disease. Physical exam: Patient seen and fully evaluated at bedside this morning, she continues to have mild diffuse tenderness throughout abdomen but states it is not improving and has had full resolution of nausea and vomiting. Patient is scheduled to undergo CT abdomen and pelvis with oral and IV contrast later today at 11:30 AM. She is tolerating a full liquid diet and we will advance to heart healthy diet after completion of CT. Vital signs reviewed and stable. General: Nontoxic, no distress and appears stated age. Derm: Skin warm and dry, normal coloration for ethnicity. Head: Atraumatic, normocephalic and symmetric. Eyes: EOMs intact, no lid lag, and anicteric sclera Mouth: no lip lesions, mucus membranes moist Cardiovascular: regular rate and rhythm with normal S1S2, no murmur, positive posterior tibial pulses bilaterally, and cap refill < 2 seconds. Lungs: Respirations even, regular, and unlabored on room air. Lungs CTA bilaterally, no rhonchi, no rales, no wheezing, and no accessory muscle usage. Abdominal: soft, diffuse tenderness palpation, no guarding, no appreciable organomegaly Ext: ROM intact. No gross muscle atrophy, no edema, no contractures Neuro: Speech clear, face symmetrical and CN II-XII grossly intact with no noted focal neuro deficits Psych: Alert and oriented to person, place, time, and situation. Appropriate and pleasant affect. Assessment and Plan of Care: Sepsis upon arrival, unclear source suspect gastroenteritis Diffuse abdominal pain accompanied by intractable nausea and vomiting -Continue empiric IV antibiotics with Zosyn 3.375 g every 8 hours -Blood cultures showing no growth to date -Tylenol 650 mg p.o. every 6 hours as needed for mild pain/fever. -Compazine 10 mg IVP every 6 hours as needed for nausea/vomiting. -Continue GI prophylaxis with Protonix 40 mg twice daily. -Patient tolerating full liquid diet, will advance to healthy diet after completion of abdominal CT Hypokalemia resolved Hypomagnesemia, resolved Acute on chronic lower back pain, improved -Patient reports back pain is back to baseline -CT lumbar spine showing postsurgical changes without evidence for acute fracture or stenosis. Lactic acidosis, Lactic acidosis resolved from initial lactate of 6.1 with morning lactate of 1.9 after sepsis bolus and aggressive IV fluid hydration. High anion gap metabolic acidosis, resolved with IV fluid hydration Hypercalcemia, resolved with IV fluid hydration Hypertension -Continue lisinopril 20 mg daily Depression and anxiety -Continue Effexor XR 75 mg daily. Data and imaging reviewed: Patient scheduled to undergo CT abdomen and pelvis with oral and IV contrast later today at 11:30 AM. Will follow-up on results and place further orders if indicated based upon these findings. Morning labs reviewed. CBC showing mild normocytic anemia with hemoglobin of 11.2. BMP showing resolution of hypokalemia with potassium of 3.8 this morning. Hypomagnesemia resolved with morning magnesium of 2.0. Vital signs reviewed. Blood pressure 130/76, heart rate 77, respiratory rate 16, temp 98.2 F, and SpO2 of 96% on room air. CODE STATUS: Full code DVT prophylaxis: Lovenox Anticipated discharge date: Pending clinical course Anticipated discharge place: Home Patient was seen independently by Nurse Pracitioner. This document was prepared using [employer] dictation software. Please allow for errors in ham boner, while rare they do occur. Jad Woodruff [employer] rendered care for this patient independently, reviewed the findings and plan as documented in the note above. I did not physically speak with or examine the patient on this date. Objective - Vital Signs Vital signs: Vital Signs Temp 98.2 F 12/20/23 08:00 Pulse 77 12/20/23 08:00 Resp 16 12/20/23 08:00 BP 130/76 12/20/23 08:00 Pulse Ox 96 12/20/23 08:00 FiO2 Intake & Output 12/19/23 12/20/23 12/20/23 18:59 06:59 18:59 Intake Total 240 Balance 240 Weight 61.6 kg Intake: Oral 240 Other: Voiding Method Toilet Toilet Diaper Diaper # Voids 1 # Bowel Movements 0 - Labs CBC & Chem 7: 12/20/23 08:14 12/20/23 08:14 Labs: Abnormal Lab Results - Last 24 Hours (Table) 12/19/23 Range/Units 10:20 Potassium 2.8 L (3.5-5.1) mmol/L Creatinine 0.48 L (0.52-1.04) mg/dL Glucose 102 H (74-99) mg/dL Total Protein 6.1 L (6.3-8.2) g/dL Microbiology - Last 24 Hours (Table) 12/17/23 16:00 Blood Culture - Preliminary Blood 12/17/23 16:15 Blood Culture - Preliminary Blood
--- NOTE | 2023-12-20 15:54 | P.PN ---
Subjective Progress Note Date: 12/20/23 Principal diagnosis: Reason for follow-up is fever/abdominal source Patient is a 73-year-old female with a past medical history significant for hypertension hyperlipidemia osteoarthritis rheumatoid arthritis reflux fibromyalgia T11 spinal injury presenting to the hospital for evaluation of abdominal pain and vomiting did have a fever with initial CT done without contrast did not show any acute intra-abdominal pathology. On today's evaluation that is 12/20/2023,the patient remains to be afebrile, patient is on room air not requiring supplemental oxygen and denies any shortness of breath no chest pain or cough.Patient did have resolution of her nausea no further vomiting still having some abdominal pain no diarrhea. Patient white count is 6.0, creatinine 0.[address] abdominal pelvis was negative as well blood culture has been negative Objective - Vital Signs Vital signs: Vital Signs Temp 98.2 F 12/20/23 08:00 Pulse 88 12/20/23 12:07 Resp 18 12/20/23 12:07 BP 146/86 12/20/23 12:07 Pulse Ox 94 L 12/20/23 12:07 FiO2 Intake & Output 12/19/23 12/20/23 12/20/23 18:59 06:59 18:59 Intake Total 240 Balance 240 Weight 61.6 kg Intake: Oral 240 Other: Voiding Method Toilet Toilet Toilet Diaper Diaper Diaper # Voids 1 1 # Bowel Movements 0 1 - Exam GENERAL DESCRIPTION: An elderly female lying in bed in no distress RESPIRATORY SYSTEM: Unlabored breathing , decreased breath sounds at bases HEART: S1 S2 regular rate and rhythm , ABDOMEN: Soft , no tenderness EXTREMITIES: No edema feet - Labs CBC & Chem 7: 12/20/23 08:14 12/20/23 08:14 Labs: Abnormal Lab Results - Last 24 Hours (Table) 12/20/23 12/20/23 Range/Units 08:14 08:14 RBC 3.59 L (3.80-5.40) m/uL Hgb 11.2 L (11.4-16.0) gm/dL Chloride 110 H (98-107) mmol/L Creatinine 0.49 L (0.52-1.04) mg/dL Total Protein 5.7 L (6.3-8.2) g/dL Microbiology - Last 24 Hours (Table) 12/17/23 16:00 Blood Culture - Preliminary Blood 12/17/23 16:15 Blood Culture - Preliminary Blood Assessment and Plan (1) Gastroenteritis Current Visit: Yes Status: Acute Code(s): K52.9 - NONINFECTIVE GASTROENTERITIS AND COLITIS, UNSPECIFIED SNOMED Code(s): 44549558 (2) Sepsis Current Visit: Yes Status: Acute Code(s): A41.9 - SEPSIS, UNSPECIFIED ORGANISM SNOMED Code(s): 71821474 Plan: 1patient presented hospital with sepsis in this patient who did have a fever elevated white count source likely abdominal in this patient presenting symptoms with vomiting and abdominal pain did not have diarrhea patient did have initial CT abdominal pelvis that was done without any oral contrast and did not show any acute findings still suspicious high for intra-abdominal source with no concern for pneumonia or UTI no evidence of any cellulitis or joint swelling 2-patient did have improvement of her nausea and vomiting did have repeat C abdominal and pelvis that has been negative for acute intra-abdominal abdominal pathology 3-patient to continue with the Zosyn in view of clinical response and will transition to oral antibiotics on discharge Dictation was produced using [employer] dictation software. please excuse any grammatical, word or spelling errors. Time with Patient: Less than 30
[2023-12-20] MEDS: LOPERAMIDE 2 MG CAP PO STA (20:09)
[2023-12-21 08:57] LABS: HCT 32.5 % (34.0-46.0); HGB 10.5 gm/dL (11.4-16.0); MCH 30.2 pg (25.0-35.0); MCHC 32.3 g/dL (31.0-37.0); MCV 93.5 fL (80.0-100.0); Mean Platelet Volume 8.3; Platelet Count 204 k/uL (150-450); RBC 3.47 m/uL (3.80-5.40); RDW 13.1 % (11.5-15.5); WBC 5.6 k/uL (3.8-10.6)
[2023-12-21 09:05] VITALS: RESP 16
[2023-12-21 09:25] LABS: ALT 12 U/L (4-34); AST 20 U/L (14-36); African American GFR (CKD) >90 (>60 ml/min/1.73 sqM); Albumin 3.5 g/dL (3.5-5.0); Alkaline Phosphatase 78 U/L (38-126); Anion Gap 6 mmol/L; Blood Urea Nitrogen 5 mg/dL (7-17); Calcium 9.7 mg/dL (8.4-10.2); Carbon Dioxide 25 mmol/L (22-30); Chloride 109 mmol/L (98-107); Glucose 111 mg/dL (74-99); Magnesium 1.7 mg/dL (1.6-2.3); Non-African American GFR(CKD) >90 (>60 ml/min/1.73 sqM); Potassium 3.5 mmol/L (3.5-5.1); Sodium 140 mmol/L (137-145); Total Bilirubin 0.6 mg/dL (0.2-1.3); Total Protein 5.7 g/dL (6.3-8.2)
[2023-12-21] MEDS: MAGNESIUM OXIDE 400 MG TAB PO STA (10:56)
[2023-12-21 10:59] VITALS: BP 141/85; PULSE 77; TEMP 98
--- NOTE | 2023-12-21 12:32 | P.PN ---
Subjective Progress Note Date: 12/21/23 Principal diagnosis: Reason for follow-up is fever/abdominal source Patient is a 73-year-old female with a past medical history significant for hypertension hyperlipidemia osteoarthritis rheumatoid arthritis reflux fibromyalgia T11 spinal injury presenting to the hospital for evaluation of abdominal pain and vomiting did have a fever with initial CT done without contrast did not show any acute intra-abdominal pathology. On today's evaluation that is 12/21/2023, the patient continues to be afebrile, the patient is on room air and breathing comfortably, the Pt denies having any chest pain or cough, the patient denies having any abdominal pain no further vomiting or any diarrhea, mention feeling better wants to go home. Patient white count is 5.6, creatinine 0.47 stool for C. difficile is negative blood culture negative Objective - Vital Signs Vital signs: Vital Signs Temp 99.2 F 12/21/23 09:03 Pulse 76 12/21/23 09:03 Resp 16 12/21/23 09:03 BP 130/80 12/21/23 09:03 Pulse Ox 95 12/21/23 09:03 FiO2 Intake & Output 12/20/23 12/21/23 12/21/23 18:59 06:59 18:59 Intake Total 250 10 Balance 250 10 Weight 61 kg Intake: IV 10 10 Invasive Line 2 10 Invasive Line 3 10 Oral 240 0 Other: Voiding Method Toilet Toilet Toilet Diaper Diaper Diaper # Voids 1 # Bowel Movements 4 - Exam GENERAL DESCRIPTION: An elderly female lying in bed in no distress RESPIRATORY SYSTEM: Unlabored breathing , decreased breath sounds at bases HEART: S1 S2 regular rate and rhythm , ABDOMEN: Soft , no tenderness EXTREMITIES: No edema feet - Labs CBC & Chem 7: 12/21/23 08:26 12/21/23 08:26 Labs: Abnormal Lab Results - Last 24 Hours (Table) 12/21/23 12/21/23 Range/Units 08:26 08:26 RBC 3.47 L (3.80-5.40) m/uL Hgb 10.5 L (11.4-16.0) gm/dL Hct 32.5 L (34.0-46.0) % Chloride 109 H (98-107) mmol/L BUN 5 L (7-17) mg/dL Creatinine 0.47 L (0.52-1.04) mg/dL Glucose 111 H (74-99) mg/dL Total Protein 5.7 L (6.3-8.2) g/dL Microbiology - Last 24 Hours (Table) 12/17/23 16:00 Blood Culture - Preliminary Blood 12/17/23 16:15 Blood Culture - Preliminary Blood Assessment and Plan (1) Gastroenteritis Current Visit: Yes Status: Acute Code(s): K52.9 - NONINFECTIVE GASTROENTERITIS AND COLITIS, UNSPECIFIED SNOMED Code(s): 53629597 (2) Sepsis Current Visit: Yes Status: Acute Code(s): A41.9 - SEPSIS, UNSPECIFIED ORGANISM SNOMED Code(s): 07153796 Plan: 1patient presented hospital with sepsis in this patient who did have a fever elevated white count source likely abdominal in this patient presenting symptoms with vomiting and abdominal pain did not have diarrhea patient did have initial CT abdominal pelvis that was done without any oral contrast and did not show any acute findings still suspicious high for intra-abdominal source with no concern for pneumonia or UTI no evidence of any cellulitis or joint swelling 2-patient did have improvement of her nausea and vomiting did have repeat C abdominal and pelvis that has been negative for acute intra-abdominal abdominal pathology 3-patient has shown overall clinical improvement culture remains to be negative white count normalized she will finish therapy with oral Augmentin and close outpatient follow-up discussed with [facility] for admitting team Dictation was produced using [email or web address] dictation software. please excuse any grammatical, word or spelling errors. Time with Patient: Less than 30
--- NOTE | 2023-12-21 12:53 | P.DS ---
Providers Date of admission: 12/17/23 20:26 Expected date of discharge: 12/21/23 Attending physician: Rivas Pope MD Consults: 12/17/23 20:26 Consult Physician Urgent Consulting Provider: Shira Salcedo Consult Reason/Comments: Sepsis Do you want consulting provider notified?: Yes Primary care physician: Jose M Peoples Hospital Course: Discharge Diagnosis: Sepsis upon arrival, suspect gastroenteritis. Abdominal pain, nausea, vomiting. Secondary to above Diffuse abdominal pain accompanied by intractable nausea and vomiting. Hypokalemia resolved Hypomagnesemia, resolved Acute on chronic lower back pain, improved. Patient reports back pain is back to baseline. CT lumbar spine showing postsurgical changes without evidence for acute fracture or stenosis. Lactic acidosis, Lactic acidosis resolved from initial lactate of 6.1 with morning lactate of 1.9 after sepsis bolus and aggressive IV fluid hydration. High anion gap metabolic acidosis, resolved with IV fluid hydration Hypercalcemia, resolved with IV fluid hydration Hypertension. Continue lisinopril 20 mg daily Depression and anxiety. Continue Effexor XR 75 mg daily. Hospital course: Patient is a very pleasant 73-year-old female with a past medical history of hypertension, hyperlipidemia, rheumatoid arthritis, fibromyalgia, GERD, chronic back pain, anxiety with depression, and breast cancer status post L mastectomy/chemo/radiation in remission. He presented to the hospital on 12/17/2023 chief complaint of fever, nausea, vomiting, and abdominal pain. Upon arrival to our facility, patient underwent evaluation in the emergency department. Vital signs upon arrival show blood pressure 176/78, heart rate 121, respiratory rate 16, temp 101.4 F, and SpO2 of 95% on room air. EKG was completed showing sinus tachycardia at 100 bpm with a first-degree AV block with LA interval of 219 ms. Chest x-ray completed negative for acute cardiopulmonary process. Labs completed and reviewed. CBC showing leukocytosis with WBC count of 13.4. Coagulation profile showing low PTT of 19.8. BMP showing hypokalemia with potassium of 3.3 and hypocarbia with bicarb of 18 with elevated anion gap of 16. Renal function showing mild prerenal azotemia with BUN of 22.8 and blood glucose of 180. Initial lactate 6.1. Calcium also elevated at 10.7. Liver profile unremarkable. Urinalysis negative for infection. Influenza A, influenza B, RSV, and COVID PCR negative. Abdomen and pelvis with IV contrast completed showing moderate hiatal hernia and partial hepatectomy and hysterectomy otherwise negative for acute changes within the abdomen or pelvis reported. Patient admitted under our services with consultation to infectious disease. She was treated with IV antibiotics with Zosyn. She underwent CT lumbar spine secondary to reports of acute on chronic back pain and unclear source of sepsis. CT lumbar spine showing postsurgical changes without evidence for acute fracture or stenosis. Diet was slowly titrated from clear liquids to regular diet and patient tolerating well. She underwent a repeat CT abdomen and pelvis with oral and IV contrast which was again negative for acute intra- abdominal process. Patient's symptoms improved and nearly resolved. She is tolerating regular diet. She is medically stable and cleared for discharge at this time, infectious disease recommending an additional 10-day course of oral antibiotics with Augmentin 875/125 mg every 12 hours. Patient to follow-up outpatient with PCP in 1 to 2 days. Physical exam: Vital signs reviewed and stable. General: Nontoxic, no distress and appears stated age. Derm: Skin warm and dry, normal coloration for ethnicity. Head: Atraumatic, normocephalic and symmetric. Eyes: EOMs intact, no lid lag, and anicteric sclera Mouth: no lip lesions, mucus membranes moist Cardiovascular: regular rate and rhythm with normal S1S2, no murmur, positive posterior tibial pulses bilaterally, and cap refill < 2 seconds. Lungs: Respirations even, regular, and unlabored on room air. Lungs CTA bilaterally, no rhonchi, no rales, no wheezing, and no accessory muscle usage. Abdominal: soft, diffuse tenderness palpation, no guarding, no appreciable organomegaly Ext: ROM intact. No gross muscle atrophy, no edema, no contractures Neuro: Speech clear, face symmetrical and CN II-XII grossly intact with no noted focal neuro deficits Psych: Alert and oriented to person, place, time, and situation. Appropriate and pleasant affect. A total of 34 minutes of time were spent preparing this complex discharge summary. Pt was discharged on 06/22/2023 at 10:49 AM. Patient was seen independently by Nurse Practitioner. This document was prepared using [employer] dictation software. Please allow for errors in die reamer while rare they do occur. Jad Woodruff NP rendered care for this patient independently, reviewed the findings and plan as documented in the note above. I did not physically speak with or examine the patient on this date. Patient Condition at Discharge: Stable Plan - Discharge Summary Discharge Rx Participant: No New Discharge Prescriptions: New Amoxic-Pot Clav 875-125Mg [Augmentin 875-125] 1 tab PO Q12HR 10 Days #20 tab Continue Lisinopril-Hctz 20-12.5 mg [Zestoretic 20-12.5] 1 tab PO DAILY Pantoprazole Sodium [Protonix] 40 mg PO BID #60 tab Venlafaxine HCl [Effexor XR] 75 mg PO DAILY Discharge Medication List Lisinopril-Hctz 20-12.5 mg [Zestoretic 20-12.5] 1 tab PO DAILY 01/29/22 [History] Pantoprazole Sodium [Protonix] 40 mg PO BID #60 tab 04/10/22 [Rx] Venlafaxine HCl [Effexor XR] 75 mg PO DAILY 12/17/23 [History] Amoxic-Pot Clav 875-125Mg [Augmentin 875-125] 1 tab PO Q12HR 10 Days #20 tab 12/21/23 [Rx] Follow up Appointment(s)/Referral(s): Jose M Abreu DO [Primary Care Provider] - 12/27/23 3:40 pm Patient Instructions/Handouts: Gastritis (DC) Activity/Diet/Wound Care/Special Instructions: Activity: As tolerated. Take breaks as needed. Diet: Heart healthy and carb consistent diet. Avoid salts, or foods with hidden salts such as canned or boxed foods and frozen dinners. Extra salt makes your heart work harder and traps the fluid in your body for longer. Special Instructions: Take all of your medications as directed and remember to keep all of your doctor's appointments and follow-up as needed. Thank you for allowing us to participate in your care, it was truly a pleasure having you for our patient!!! Discharge Disposition: HOME SELF-CARE
== END 2023-12-21 16:32 | disposition home or self-care (01) | DRG 872 ==
LOC: EC 15:28 → 3SCARD 20:26
PROVIDERS: ADMIT Internal Medicine; ATTEND Internal Medicine
DX: A41.9 Sepsis, unspecified organism (principal); E87.20 Acidosis, unspecified; K52.9 Noninfective gastroenteritis and colitis, unspecified; M06.9 Rheumatoid arthritis, unspecified; F32.A Depression, unspecified; I10 Essential (primary) hypertension; F10.11 Alcohol abuse, in remission; E83.42 Hypomagnesemia; E83.52 Hypercalcemia; E87.6 Hypokalemia; D64.9 Anemia, unspecified; E78.5 Hyperlipidemia, unspecified; F41.0 Panic disorder [episodic paroxysmal anxiety]; F43.10 Post-traumatic stress disorder, unspecified; G89.29 Other chronic pain; M79.7 Fibromyalgia; M81.0 Age-related osteoporosis without current pathological fracture; G62.9 Polyneuropathy, unspecified; K44.9 Diaphragmatic hernia without obstruction or gangrene; I44.0 Atrioventricular block, first degree; K21.9 Gastro-esophageal reflux disease without esophagitis; M19.90 Unspecified osteoarthritis, unspecified site; Z79.899 Other long term (current) drug therapy; Z96.612 Presence of left artificial shoulder joint; Z85.3 Personal history of malignant neoplasm of breast; Z85.41 Personal history of malignant neoplasm of cervix uteri; Z87.891 Personal history of nicotine dependence; Z86.19 Personal history of other infectious and parasitic diseases; Z88.2 Allergy status to sulfonamides; Z91.040 Latex allergy status; Z88.1 Allergy status to other antibiotic agents; Z88.8 Allergy status to other drugs, medicaments and biological substances
CPT/HCPCS: 36415; 71046; 72131; 74177; 80048; 80053; 81001; 83605; 83690; 83735; 85025; 85027; 85610; 85730; 87040; 87045; 87046; 87324; 87636; 93005; 94760; 96361; 96365; 96375; 96376; 99285

== ENCOUNTER 2023-12-26 12:37 | Inpatient (IN) | payer MEDICARE ==
--- NOTE | 2023-12-26 13:02 | ED ---
Nausea/Vomiting/Diarrhea HPI - General Source: patient, EMS, RN notes reviewed Mode of arrival: EMS Limitations: no limitations <GenieShady Garcia - Last Filed: 12/26/23 13:01> - General Source: patient, RN notes reviewed, old records reviewed Limitations: no limitations - History of Present Illness MD complaint: diarrhea -: days(s) Description of Vomiting: watery <Natalia Hicks - Last Filed: 12/27/23 10:35> - General Chief complaint: Nausea/Vomiting/Diarrhea Stated complaint: Diarrhea Time Seen by Provider: 12/26/23 12:50 - History of Present Illness Initial comments: Quick [id number] female presents emergency department chief complaint of abdominal pain, diarrhea. Patient was discharged on Sunday after she was admitted for 5 days for possible sepsis. Patient states that ever since her discharge she has had diarrhea and increased abdominal pain. (Shady Prescott) Patient is a 73-year-old female presenting today for 5 days diarrhea. Patient states that she was recently admitted to the hospital for nausea and vomiting and abdominal pain discharged last Sunday. She states that prior to discharge she began having diarrhea. This persisted over the last 5 days. States yesterday she had 20 episodes of watery stool. Nausea and vomiting is improved since discharge. She states her abdominal pain has not worsened from when she was here previously, currently her abdomen feels "sore and crampy". Last night she felt like she was going to pass out when she stood up suddenly, getting tunn el vision. She never completely lost consciousness. Denies shortness of breath or chest pain. Denies dysuria, urinary frequency or decreased urine output. States that she feels like she is "on [id number], feels fatigued. She is attempted to eat at home however states every time she tries to eat something her diarrhea starts again. She has been taking her antibiotics as prescribed. She does state that the day of discharge on 12/21/2023 she was given a dose of Imodium which improved her symptoms. She has not taken this since. No history of C. difficile. (Natalia Hicks) - Related Data Home Medications Medication Instructions Recorded Confirmed Lisinopril-Hctz 20-12.5 mg 1 tab PO DAILY 01/29/22 12/26/23 [Zestoretic 20-12.5] Venlafaxine HCl [Effexor XR] 75 mg PO DAILY 12/17/23 12/26/23 Previous Rx's Medication Instructions Recorded Pantoprazole Sodium [Protonix] 40 mg PO BID #60 tab 04/10/22 Amoxic-Pot Clav 875-125Mg 1 tab PO Q12HR 10 Days #20 tab 12/21/23 [Augmentin 875-125] Allergies Allergy/AdvReac Type Severity Reaction Status Date / Time Sulfa (Sulfonamide Allergy Severe Rash/Hives Verified 12/26/23 15:21 Antibiotics) Tetracyclines Allergy Severe Rash/Hives Verified 12/26/23 15:21 latex Allergy Rash/Hives Verified 12/26/23 15:21 lorazepam [From Ativan] AdvReac Confusion Verified 12/26/23 15:21 TIDE AND EXTRA LAUNDRY SOAP Allergy Rash/Hives Uncoded 12/26/23 15:21 Review of Systems ROS Other: All systems not noted in ROS Statement are negative. <Shady Prescott - Last Filed: 12/26/23 13:01> ROS Other: All systems not noted in ROS Statement are negative. Constitutional: Reports: as per HPI, weakness. Denies: fever Cardiovascular: Denies: chest pain, dyspnea on exertion Gastrointestinal: Reports: abdominal pain, diarrhea. Denies: nausea, vomiting, constipation, melena, hematochezia Genitourinary: Reports: as per HPI <Natalia Hicks - Last Filed: 12/27/23 10:35> ROS Statement: Those systems with pertinent positive or pertinent negative responses have been documented in the HPI. Past Medical History Past Medical History: Cancer, Fibromyalgia, GERD/Reflux, GI Bleed, Hyperlipidemia, Hypertension, Liver Disease, Osteoarthritis (OA), Rheumatoid Arthritis (RA), Syncope Additional Past Medical History / Comment(s): Past lower GI bleed, diverticulitis, colitis, IBS, gastric ulcer, hepatitis A, L breast cancer with surgeries/chemo and radiation, cervical cancer with surgery, bronchitis, osteoporosis, neuropathy bilateral feet and hands, chronic pain, past L humeral fracture, T11 spinal injury, chronic cervical and lumbar back pain, migraines, osteoarthritis and rheumatoid arthritis in multiple joints. past drug and etoh abuse- per ptclear for 26 years. History of Any Multi-Drug Resistant Organisms: None Reported Past Surgical History: Section, Hysterectomy, Joint Replacement, Orthopedic Surgery, Tonsillectomy Additional Past Surgical History / Comment(s): ORIF L humerus with carlos/screws since removed, total L shoulder arthroplasty, cervical and lumbar fusions, pain clinic procedures, D&C, bilateral breast reductions with nonhealing wound and had closure/skin grafting, L breast lumpectomies and then L breast mastectomy, R tympanoplasty, EGDs, colonoscopies, ivy fundoplasty, loop recorder. pain pump in left lower abd. Past Anesthesia/Blood Transfusion Reactions: No Reported Reaction Additional Past Anesthesia/Blood Transfusion Reaction / Comment(s): Pt received blood this admission without reaction. Past Psychological History: Anxiety, Depression, Panic Disorder, PTSD Smoking Status: Former smoker Past Alcohol Use History: None Reported Past Drug Use History: None Reported - Past Family History Mother Family Medical History: Myocardial Infarction ([place]) Additional Family Medical History / Comment(s): . <Shady Prescott - Last Filed: 12/26/23 13:01> General Exam Limitations: no limitations <Shady Prescott - Last Filed: 12/26/23 13:01> <Natalia Hicks - Last Filed: 12/27/23 10:35> - General Exam Comments Initial Comments: Visual Physical Exam Vital signs reviewed General: Well-appearing, nontoxic, no acute distress. Head: Normocephalic, atraumatic Eyes: PERRLA, EOMI ENT: Airway patent Chest: Nonlabored breathing Skin: No visual rash, normal skin tone Neuro: Alert and oriented 3 Musculoskeletal: No gross abnormalities (Shady Prescott) PE: CONSTITUTIONAL: no apparent distress, chronically ill-appearing, nontoxic, laying in hallway bed alert and awake SKIN: warm, dry, no jaundice, hives or petechiae EYES: pupils are equally round, extraocular movements intact without nystagmus, clear conjunctiva, non-icteric sclera HENT: normocephalic, atraumatic, dry mucus membranes, oropharynx clear without exudates NECK: Nontender and supple with no nuchal rigidity, no lymphadenopathy, full range of motion PULMONARY: clear to auscultation without wheezes, rhonchi, or rales, normal excursion, no accessory muscle use and no stridor CARDIOVASCULAR: regular rate, rhythm, normal S1 and S2. No appreciated murmurs. Intact distal perfusion GASTROINTESTINAL: soft, active bowel sounds, palpable nontender mass in LLQ, patient states is her old pain pump, not new, intially guards to palpation of left side of abdomen, however when distracted is smiling and talkative throughout abdominal exam, displays no guarding LYMPHATICS: no edema in lower extremities, no lymphadenopathy MUSCULOSKELETAL: Extremities have no gross deformity, no edema, redness, or swelling NEUROLOGIC: _a/o x 3, GCS 15, normal mentation and speech. Moves all extremities x 4 without motor or sensory deficit PSYCHIATRIC: _normal mood, though somewhat anxious and affect, thought process is clear and linear (Natalia Hicks) Course Vital Signs 12/26/23 12/26/23 12/26/23 12:49 17:00 20:00 Temperature 98.0 F 98.5 F Pulse Rate 119 H 79 Pulse Rate [ 80 Left] Respiratory 18 18 18 Rate Blood Pressure 107/78 Blood Pressure 137/81 [Right Arm] O2 Sat by Pulse 98 97 97 Oximetry Medical Decision Making <Shady Prescott - Last Filed: 12/26/23 13:01> - Lab Data Result diagrams: 12/27/23 05:52 12/27/23 05:52 - EKG Data -: EKG Interpreted by Me EKG shows normal: sinus rhythm Rate: normal Interpretation: normal EKG <Natalia Hicks - Last Filed: 12/27/23 10:35> - Medical Decision Making I completed the quick note portion of this chart signed Shady Prescott PA-C (Shady Prescott) Was pt. sent in by a medical professional or institution ([facility], SENIOR RESEARCH PROJECT MANAGER, urgent care, hospital, or penitentiary...) When possible be specific @ -[No] Did you speak to anyone other than the patient for history (EMS, parent, family, police, friend...)? What history was obtained from this source @ -[No] Did you review nursing and triage notes (agree or disagree)? Why? @ -[I reviewed and agree with nursing and triage notes] Were old charts reviewed (outside hosp., previous admission, EMS record, old EKG, old radiological studies, urgent care reports/EKG's, penitentiary records)? Report findings @ -Chart from previous admission reviewed, discharge summary from 12/21/2023 reviewed, patient admitted for questionable sepsis, suspected gastroenteritis, nausea vomiting, discharged home on Augmentin Differential Diagnosis (chest pain, altered mental status, abdominal pain women, abdominal pain men, vaginal bleeding, weakness, fever, dyspnea, syncope, headache, dizziness, GI bleed, back pain, seizure, CVA, palpatations, mental health, musculoskeletal)? @ -Differential diagnosis remains broad however top considerations include gastroenteritis, colitis, diverticulitis, C. difficile infection EKG interpreted by me (3pts min.). @ -[As above] CT interpreted by me (1pt min.). @ -[None done] U/S interpreted by me (1pt. min.). @ -[None done] What meds were considered but not given or refused? Why? @ -[None] Did you discuss the management of the patient with other professionals (professionals i.e. , PA, SENIOR RESEARCH PROJECT MANAGER, lab, RT, psych nurse, social insurance specialist, materials scientist, teacher, business practices officer, manager of case)? Give summary @ -[No] Was smoking cessation discussed for >3mins.? @ -[No] Was critical care preformed (if so, how long)? @ -[No] Were there social determinants of health that impacted care today? How? (Homelessness, low income, unemployed, alcoholism, drug addiction, transportation, low edu. Level, literacy, decrease access to med. care, [facility], rehab)? @ -[No] Was there de-escalation of care discussed even if they declined (Discuss DNR or withdrawal of care, Hospice)? DNR status @ -[No] What co-morbidities impacted this encounter? (DM, HTN, Smoking, COPD, CAD, Cancer, CVA, ARF, Chemo, Hep., AIDS, mental health diagnosis, sleep apnea, morbid obesity)? @Hepatitis A, hypertension, osteoarthritis Was patient admitted / discharged? Hospital course, mention meds given and route, prescriptions, significant lab abnormalities, going to OR and other pertinent info. @ -[hospital course] [I have reviewed the patient's past medical records including triage summary, chief complaint, pertinent medical conditions, medications, surgical history, known medication allergies and previous visits to the emergency department.] Patient is a 73-year-old female, recent admission for sepsis, suspected gastroenteritis presenting for diarrhea, lightheadedness. Initial evaluation showed chronically ill-appearing 73-year-old female in no acute distress, nontoxic-appearing.. PE significant for dry mucous membranes, soft abdomen with active bowel sounds. A hard palpable mass was noted in the left lower quadrant, patient states is her old pain pack, is not new. Of note on initial patient of the left side of the abdomen patient does guard however with distraction and continued conversation, patient continues to smile and converse throughout abdominal palpation, no further guarding noted. Plan for comprenehsive labs and imaging, including labs as ordered by [facility]. I reviewed patient's most recent visit, CT and pelvis was done on 12/16 which did not show any acute intra- abdominal process. Patient's pain has not worsened, pain is described as crampy, abdominal exam is benign, lactic 1.7, do not feel repeat CT of the abdomen is indicated at this point. Patient's workup significant for Potassium 2.8, on 12/21/2023 was 3.5. Mag 1.5, down from 1.7 on 12/21/2023 lipase 74. White blood cell count 8.8, no leukocytosis, patient also noted to be tachycardic on arrival. Ordered replac ement potassium and magnesium. Ordered replacement IV fluids, GI cocktail. Patient endorsed anxiety, requested something to help her calm down, was agreeable with Xanax, states has tolerated in the past. Patient does live alone and given persistence of symptoms, pre-syncopal episodes, suspect secondary to volume depletion will admit for observation. Patient is agreeable plan. Patient admitted to [facility], pending UA. Admission orders placed. Drug Therapy requiring intensive monitoring for toxicity (Heparin, Nitro, Insulin, Cardizem)? @ -[No] Were any procedures done? @ -[No] Diagnosis/symptom? @ -Diarrhea, hypomagnesemia, hypokalemia, dehydration Acute, or Chronic, or Acute on Chronic? @ -Acute Uncomplicated (without systemic symptoms) or Complicated (systemic symptoms)? @ -Complicated Side effects of treatment? @ -[No] Exacerbation, Progression, or Severe Exacerbation? @ -[No] Poses a threat to life or bodily function? How? (Chest pain, [place], [place], pneumonia, PE, COPD, DKA, ARF, appy, cholecystitis, CVA, Diverticulitis, Homicidal, Suicidal, threat to staff... and all critical care pts) @ Yes, dehydration, hypomagnesemia, hypokalemia (Natalia Hicks) - Lab Data Lab Results 12/26/23 12/26/23 12/26/23 Range/Units 13:04 13:04 13:48 WBC 8.8 (3.8-10.6) k/uL RBC 4.60 (3.80-5.40) m/uL Hgb 14.2 D (11.4-16.0) gm/dL Hct 43.1 (34.0-46.0) % MCV 93.7 (80.0-100.0) fL MCH 30.8 (25.0-35.0) pg MCHC 32.9 (31.0-37.0) g/dL RDW 13.7 (11.5-15.5) % Plt Count 393 (150-450) k/uL MPV 8.8 Neutrophils % 65 % Lymphocytes % 25 % Monocytes % 7 % Eosinophils % 1 % Basophils % 0 % Neutrophils # 5.7 (1.3-7.7) k/uL Lymphocytes # 2.2 (1.0-4.8) k/uL Monocytes # 0.6 (0-1.0) k/uL Eosinophils # 0.1 (0-0.7) k/uL Basophils # 0.0 (0-0.2) k/uL Poikilocytosis Slight Sodium 140 (137-145) mmol/L Potassium 2.8 L (3.5-5.1) mmol/L Chloride 110 H (98-107) mmol/L Carbon Dioxide 19 L (22-30) mmol/L Anion Gap 11 mmol/L BUN 12 (7-17) mg/dL Creatinine 0.52 (0.52-1.04) mg/dL Est GFR (CKD-EPI)AfAm >90 (>60 ml/min/1.73 sqM) Est GFR (CKD-EPI)NonAf >90 (>60 ml/min/1.73 sqM) Glucose 121 H (74-99) mg/dL Plasma Lactic Acid Eliseo 1.7 (0.7-2.0) mmol/L Calcium 10.4 H (8.4-10.2) mg/dL Magnesium 1.5 L (1.6-2.3) mg/dL Total Bilirubin 0.5 (0.2-1.3) mg/dL AST 17 (14-36) U/L ALT 11 (4-34) U/L Alkaline Phosphatase 101 (38-126) U/L Total Protein 6.9 (6.3-8.2) g/dL Albumin 4.3 (3.5-5.0) g/dL Lipase 74 (23-300) U/L - EKG Data EKG Comments: Normal sinus rhythm, NH interval 137 ms, QT/QTc 368/395 ms, normal axis, no STEMI or arrhythmia (Natalia Hicks) Critical Care Time Total Critical Care Time: 35 <Natalia Hicks - Last Filed: 12/27/23 10:35> Critical Care Time: Treatment of electrolyte abnormalities, hypomagnesemia, hypokalemia, examination of patient, discussion of treatment plan with patient, history gathering from patient, order labs and treatment (Natalia Hicks) Disposition <Shady Prescott - Last Filed: 12/26/23 13:01> <Natalia Hicks - Last Filed: 12/27/23 10:35> Clinical Impression: Diarrhea, Dehydration Disposition: ADMITTED IP TO THIS [facility] Condition: Good
[2023-12-26 14:16] LABS: Basophils % (A) 0 %; Eosinophils # (A) 0.1 k/uL (0-0.7); Eosinophils % (A) 1 %; HCT 43.1 % (34.0-46.0); Lymphocytes # (A) 2.2 k/uL (1.0-4.8); Lymphocytes % (A) 25 %; MCH 30.8 pg (25.0-35.0); MCHC 32.9 g/dL (31.0-37.0); MCV 93.7 fL (80.0-100.0); Mean Platelet Volume 8.8; Monocytes # (A) 0.6 k/uL (0-1.0); Monocytes % (A) 7 %; Neutrophils # (A) 5.7 k/uL (1.3-7.7); Neutrophils % (A) 65 %; Platelet Count 393 k/uL (150-450); Poikilocytosis Slight; RDW 13.7 % (11.5-15.5); WBC 8.8 k/uL (3.8-10.6)
[2023-12-26 14:22] LABS: HGB 14.2 gm/dL (11.4-16.0)
[2023-12-26 14:27] LABS: ALT 11 U/L (4-34); AST 17 U/L (14-36); African American GFR (CKD) >90 (>60 ml/min/1.73 sqM); Albumin 4.3 g/dL (3.5-5.0); Alkaline Phosphatase 101 U/L (38-126); Anion Gap 11 mmol/L; Blood Urea Nitrogen 12 mg/dL (7-17); Calcium 10.4 mg/dL (8.4-10.2); Carbon Dioxide 19 mmol/L (22-30); Chloride 110 mmol/L (98-107); Glucose 121 mg/dL (74-99); Lipase 74 U/L (23-300); Magnesium 1.5 mg/dL (1.6-2.3); Non-African American GFR(CKD) >90 (>60 ml/min/1.73 sqM); Potassium 2.8 mmol/L (3.5-5.1); Sodium 140 mmol/L (137-145); Total Bilirubin 0.5 mg/dL (0.2-1.3); Total Protein 6.9 g/dL (6.3-8.2)
[2023-12-26] MEDS ORDERED: ACETAMINOPHEN TAB 325 MG TAB PO PRN (16:16)
[2023-12-26] MEDS ORDERED: NALOXONE 0.4 MG/ML 1 ML VIAL IV PRN (16:16)
[2023-12-26] MEDS: MAGNESIUM SULFATE-D5W PMX 1 GM in DEXTROSE/WATER 1 100ML.BAG IVPB SCH (16:40)
[2023-12-26] MEDS: MAG HYDROX/AL HYDROX/SIMETH 30 ML, HYOSCYAMINE ELIXIR 10 ML PO STA (16:45)
[2023-12-26] MEDS: ALPRAZolam 0.25 MG TAB PO STA ×2 (16:45→23:23)
[2023-12-26] MEDS: HYDROcodone/APAP 5-325MG 1 EACH TAB PO PRN (16:45)
[2023-12-26] MEDS: POTASSIUM CHLORIDE 20 MEQ in WATER FOR INJECTION 1 100ML.BAG IVPB STA (16:45)
--- NOTE | 2023-12-26 16:48 | P.HPIM ---
History of Present Illness H&P Date: 12/26/23 Subjective: 73-year-old female with a recent admission for sepsis in the past medical history of diverticulitis, GERD, depression, hypertension, esophageal ulcers, and OA presents for diarrhea and lightheadedness. Patient reports since being discharged from the hospital on 12/21 she has had at least 10 bowel movements each day with the bowel movements slowly becoming more watery. Patient admits to taking Augmentin since discharge from the hospital on 12/21. Patient reports having continuous crampy tenderness in her abdomen. Patient states she has been feeling pinsandneedles throughout her body. Patient admits to abdominal tenderness and diarrhea. Patient denies headache, chest pain, shortness of breath, palpitations, constipation, dysuria, urinary frequency or decreased urine output. Upon arrival to since being in the hospital on the ED patient received labs which were significant for sodium 140, potassium 2.8, magnesium 1.5, plasma lactic acid vein 1.7, BUN 12, creatinine 0.52, lipase 74, WBC 8.8, neutrophils percentage 65, hemoglobin 14.2, MCV 393.7.In the ED patient received potassium,, magnesium, and IV fluids. Patient will be admitted to the floors for further workup of diarrhea (C. difficile suspected in the context of recent hospital admission and antibiotic use). Pertinent positives and negatives discussed above, a complete review of systems was preformed and all the other systems were negative. Vitals Signs Reviewed. General: non toxic, no distress, appears at stated age, normal weight Derm: no unusual rashes/lesions, warm Head: atraumatic, normocephalic, symmetric Eyes: EOMI, no lid lag, anicteric sclera, pupils equal round reactive to light ENT: Nose and ears atraumatic Neck: No cervical lymphadenopathy, trachea midline, supple Mouth: no lip lesion, mucus membranes moist Cardiovascular: S1S2 reg, no murmur, positive dorsalis pedis pulse bilateral, no edema Lungs: Decreased air entry bilaterally, no rhonchi, no rales, no accessory muscle use Abdominal: soft, tender to palpation in all 4 quadrants, no guarding Ext: muscle strength 5 out of 5 in all 4 extremities grossly, no gross muscle atrophy, no contractures, Neuro: CN II-XI grossly intact, no gross focal neuro deficits Psych: Alert, oriented, appropriate affect Data Reveiwed Today: Patient Labs: As stated above Imaging: Pending EKG Assesment:73-year-old female with a recent admission for sepsis in the past medical history of diverticulitis, GERD, depression, hypertension, esophageal ulcers, and OA presents for diarrhea and lightheadedness. Patient is admitted for workup of diarrhea and metabolic derangements. C. difficile highly suspected, pending PCR and stool culture. Plan: Diarrhea: Suspected C. difficile In the context of recent discharge from hospital for nausea and vomiting where she received Augmentin which she has been taking 10+ mostly watery bowel movements each day Rapid C. difficile PCR and stool culture pending Replenishment of potassium (potassium chloride 20 mill equivalents IV and potassium bicarbonate 40 mill equivalents p.o. once) and magnesium [id number] 1 g IVPB every hour (2 total bags given) Continue to monitor BMP for metabolic derangements Continue fluids Hypokalemia and hypomagnesemia: Likely secondary to diarrhea Replenish potassium with potassium bicarbonate 40 mill equivalents p.o. once and potassium chloride 20 mEq IVPB Continue to monitor BMP for metabolic derangements Also replenished magnesium with magnesium [id number] 1 g IVPB every hour (2 total bags given) Chronic: Hypertension, OA, diverticulitis, GERD, esophageal ulcers, and depression (will continue home medication once confirmed with pharmacy) F [potassium chloridewater] E potassium and magnesium N regular diet A normally walks at home DVT ppx: [Lovenox 40 mg SQ daily] Code Status: Full code Anticipated discharge place: To home Anticipated discharge time: Pending clinical course I have seen and evaluated the patient today. Discussed with the resident and agree with the residents subjective and objective documented in the resident's note. We have discussed the plan as below. Patient reports > 10 BM daily, foul smelling watery diarrhea since her discha rge. She has been on Augmentin. Reports tingling all over her body. Reports lightheadedness when going from sitting to standing position. Dehydration due to intractable diarrhea: Obtain C. diff. Hypokalemia: KCl 40 meq PO and 20 meq IV ordered x 1. Hypomagnesemia: Mag sulfate 2g IV x 1. Hyperchloremic metabolic acidosis Hypertension: Hold Lisinopril-HCTZ. Depression: Effexor 75 mg PO QD GERD: Protonix 40 mg PO BID Past Medical History Past Medical History: Cancer, Fibromyalgia, GERD/Reflux, GI Bleed, Hyperlipidemia, Hypertension, Liver Disease, Osteoarthritis (OA), Rheumatoid Arthritis (RA), Syncope Additional Past Medical History / Comment(s): Past lower GI bleed, diverticulitis, colitis, IBS, gastric ulcer, hepatitis A, L breast cancer with surgeries/chemo and radiation, cervical cancer with surgery, bronchitis, osteoporosis, neuropathy bilateral feet and hands, chronic pain, past L humeral fracture, T11 spinal injury, chronic cervical and lumbar back pain, migraines, osteoarthritis and rheumatoid arthritis in multiple joints. past drug and etoh abuse- per ptclear for 26 years. History of Any Multi-Drug Resistant Organisms: None Reported Past Surgical History: Section, Hysterectomy, Joint Replacement, Orthopedic Surgery, Tonsillectomy Additional Past Surgical History / Comment(s): ORIF L humerus with carlos/screws since removed, total L shoulder arthroplasty, cervical and lumbar fusions, pain clinic procedures, D&C, bilateral breast reductions with nonhealing wound and had closure/skin grafting, L breast lumpectomies and then L breast mastectomy, R tympanoplasty, EGDs, colonoscopies, ivy fundoplasty, loop recorder. pain pump in left lower abd. Past Anesthesia/Blood Transfusion Reactions: No Reported Reaction Additional Past Anesthesia/Blood Transfusion Reaction / Comment(s): Pt received blood this admission without reaction. Past Psychological History: Anxiety, Depression, Panic Disorder, PTSD Smoking Status: Former smoker Past Alcohol Use History: None Reported Past Drug Use History: None Reported - Past Family History Mother Family Medical History: Myocardial Infarction ([place]) Additional Family Medical History / Comment(s): . Medications and Allergies Home Medications Medication Instructions Recorded Confirmed Type Lisinopril-Hctz 20-12.5 mg 1 tab PO DAILY 01/29/22 12/26/23 History [Zestoretic 20-12.5] Pantoprazole Sodium [Protonix] 40 mg PO BID #60 tab 04/10/22 12/26/23 Rx Venlafaxine HCl [Effexor XR] 75 mg PO DAILY 12/17/23 12/26/23 History Amoxic-Pot Clav 875-125Mg 1 tab PO Q12HR 10 Days #20 tab 12/21/23 12/26/23 Rx [Augmentin 875-125] Allergies Allergy/AdvReac Type Severity Reaction Status Date / Time Sulfa (Sulfonamide Allergy Severe Rash/Hives Verified 12/26/23 15:21 Antibiotics) Tetracyclines Allergy Severe Rash/Hives Verified 12/26/23 15:21 latex Allergy Rash/Hives Verified 12/26/23 15:21 lorazepam [From Ativan] AdvReac Confusion Verified 12/26/23 15:21 TIDE AND EXTRA LAUNDRY SOAP Allergy Rash/Hives Uncoded 12/26/23 15:21 Physical Exam Vitals: Vital Signs Temp Pulse Resp BP Pulse Ox 12/26/23 12:49 98.0 F 119 H 18 107/78 98 Intake and Output 12/26/23 12/26/23 12/26/23 06:59 14:59 22:59 Other: Weight 60.781 kg Results CBC & Chem 7: 12/26/23 13:04 12/26/23 13:48 Labs: Abnormal Lab Results - Last 24 Hours (Table) 12/26/23 Range/Units 13:48 Potassium 2.8 L (3.5-5.1) mmol/L Chloride 110 H (98-107) mmol/L Carbon Dioxide 19 L (22-30) mmol/L Glucose 121 H (74-99) mg/dL Calcium 10.4 H (8.4-10.2) mg/dL Magnesium 1.5 L (1.6-2.3) mg/dL
[2023-12-26] MEDS: SODIUM CHLORIDE 0.9% 1,000 ML IV ONE (17:04)
[2023-12-26] MEDS: POTASSIUM BICARBONATE/CIT AC 20 MEQ TABLET.EFF PO ONE (18:24)
[2023-12-26] MEDS: PANTOPRAZOLE 40 MG TABLET PO SCH (19:40)
[2023-12-26 20:47] LABS: Appearance,Urine Clear (Clear); Bilirubin,Urine Negative (Negative); Blood,Urine Negative (Negative); Color,Urine Yellow; Glucose,Urine (UA) Trace (Negative); Ketones,Urine Trace (Negative); Leukocyte Esterase,Urine Negative (Negative); Nitrite,Urine Negative (Negative); PH, Urine 5.5 (5.0-8.0); Protein,Urine Trace (Negative); Specific Gravity,Urine 1.031 (1.001-1.035); Urobilinogen,Urine <2.0 mg/dL (<2.0)
[2023-12-26] MEDS ORDERED: FAMOTIDINE 20 MG TAB PO SCH (21:00)
[2023-12-27 06:15] LABS: HCT 35.8 % (34.0-46.0); HGB 11.7 gm/dL (11.4-16.0); MCHC 32.8 g/dL (31.0-37.0); MCV 94.4 fL (80.0-100.0); Mean Platelet Volume 7.7; Platelet Count 319 k/uL (150-450); RBC 3.79 m/uL (3.80-5.40); RDW 13.6 % (11.5-15.5)
[2023-12-27 06:39] LABS: African American GFR (CKD) >90 (>60 ml/min/1.73 sqM); Anion Gap 6 mmol/L; Blood Urea Nitrogen 9 mg/dL (7-17); Calcium 10.2 mg/dL (8.4-10.2); Carbon Dioxide 24 mmol/L (22-30); Chloride 111 mmol/L (98-107); Glucose 93 mg/dL (74-99); Magnesium 2.1 mg/dL (1.6-2.3); Non-African American GFR(CKD) >90 (>60 ml/min/1.73 sqM); Potassium 3.6 mmol/L (3.5-5.1); Sodium 141 mmol/L (137-145)
--- NOTE | 2023-12-27 06:57 | P.PN ---
Subjective Progress Note Date: 12/27/23 Subjective: Patient seen at bedside. No significant overnight events. Pertinent positives and negatives discussed above, a complete review of systems was preformed and all the other sytems were negative. Vitals Signs Reveiwed. General: non toxic, no distress, appears at stated age, normal weight Derm: no unusual rashes/lesions, warm Head: atraumatic, normocephalic, symmetric Eyes: EOMI, no lid lag, anicteric sclera, pupils equal round reactive to light ENT: Nose and ears atraumatic Neck: No cervical lymphadenopathy, trachea midline, supple Mouth: no lip lesion, mucus membranes moist Cardiovascular: S1S2 reg, no murmur, positive dorsalis pedis pulse bilateral, no edema Lungs: Decreased air entry bilaterally, no rhonchi, no rales, no accessory muscle use Abdominal: soft, tender to palpation in all 4 quadrants, no guarding Ext: muscle strength 5 out of 5 in all 4 extremities grossly, no gross muscle atrophy, no contractures, Neuro: CN II-XI grossly intact, no gross focal neuro deficits Psych: Alert, oriented, appropriate affect Data Reveiwed Today: Patient Labs: Sodium 141, potassium 3.6, chloride 111, BUN 9, creatinine 1.49, WBC 7, hemoglobin 11.9, MCV 94.4, and platelet count 319. Imaging: EKG shows normal sinus rhythm without axis deviation. Assesment and Plan: Diarrhea: Suspected C. difficile In the context of recent discharge from hospital for nausea and vomiting where she received Augmentin which she has been taking 10+ mostly watery bowel movements each day Rapid C. difficile PCR and stool culture still pending Replenishment of potassium (potassium chloride 20 mill equivalents IV and potassium bicarbonate 40 mill equivalents p.o. once) and magnesium [id number] 1 g IVPB every hour (2 total bags given) Continue to monitor BMP for metabolic derangements Continue fluids Hypokalemia and hypomagnesemia: Likely secondary to diarrhea Potassium 3.6 this morning up from 2.8 yesterday Replenished potassium with potassium bicarbonate 40 mill equivalents p.o. once and potassium chloride 20 mEq IVPB Continue to monitor BMP for metabolic derangements Also replenished magnesium with magnesium [id number] 1 g IVPB every hour (2 total bags given) Chronic:Hypertension, OA, diverticulitis, GERD, esophageal ulcers, and depre ssion (will continue home medication once confirmed with pharmacy) F [] E [] N regular diet A normally walks at home DVT ppx: Lovenox 40 mg SQ daily Code Status: Full code Anticipated discharge place: To home Anticipated discharge time: Pending clinical course I have seen and evaluated the patient today. Discussed with the resident and agree with the residents subjective and objective as documented in the resident's note. The assessment and plan was discussed and outlined as below. No episodes of diarrhea. Hypokalemia and hypomagnesemia resolved. Pending C. diff stool sample. Potentially can be discharged if negative. Dehydration due to intractable diarrhea: Obtain C. diff. Hypertension: Restart Lisinopril-HCTZ 20-12.5 mg PO QD. Depression: Effexor 75 mg PO QD GERD: Protonix 40 mg PO BID Resolved: HypoK, HypoMg, Metabolic acidosis Objective - Vital Signs Vital signs: Vital Signs Temp 97.8 F 12/27/23 02:00 Pulse 70 12/27/23 02:00 Resp 18 12/27/23 02:00 BP 146/61 12/27/23 02:00 Pulse Ox 98 12/27/23 02:00 FiO2 Intake & Output 12/26/23 12/26/23 12/27/23 06:59 18:59 06:59 Weight 60.781 kg Other: Voiding Method Bedside Commode # Voids 1 - Labs CBC & Chem 7: 12/27/23 05:52 12/27/23 05:52 Labs: Abnormal Lab Results - Last 24 Hours (Table) 12/26/23 12/26/23 12/27/23 Range/Units 13:48 19:35 05:52 RBC 3.79 L (3.80-5.40) m/uL Potassium 2.8 L (3.5-5.1) mmol/L Chloride 110 H (98-107) mmol/L Carbon Dioxide 19 L (22-30) mmol/L Creatinine (0.52-1.04) mg/dL Glucose 121 H (74-99) mg/dL Calcium 10.4 H (8.4-10.2) mg/dL Magnesium 1.5 L (1.6-2.3) mg/dL Urine Protein Trace H (Negative) Urine Glucose (UA) Trace H (Negative) Urine Ketones Trace H (Negative) 07/11/24 Range/Units 05:52 RBC (3.80-5.40) m/uL Potassium (3.5-5.1) mmol/L Chloride 111 H (98-107) mmol/L Carbon Dioxide (22-30) mmol/L Creatinine 0.49 L (0.52-1.04) mg/dL Glucose (74-99) mg/dL Calcium (8.4-10.2) mg/dL Magnesium (1.6-2.3) mg/dL Urine Protein (Negative) Urine Glucose (UA) (Negative) Urine Ketones (Negative)
[2023-12-27] MEDS: ENOXAPARIN 40 MG/0.4 ML SYRINGE SQ SCH (08:34)
[2023-12-27] MEDS: VENLAFAXINE HCL ER 75 MG CAP PO SCH (08:34)
[2023-12-27] MEDS: ALPRAZolam 0.25 MG TAB PO STA (14:41)
[2023-12-28] MEDS: ALPRAZolam 0.25 MG TAB PO PRN (03:37)
[2023-12-28 04:08] LABS: African American GFR (CKD) >90 (>60 ml/min/1.73 sqM); Anion Gap 8 mmol/L; Blood Urea Nitrogen 11 mg/dL (7-17); Calcium 10.3 mg/dL (8.4-10.2); Carbon Dioxide 23 mmol/L (22-30); Chloride 106 mmol/L (98-107); Glucose 98 mg/dL (74-99); Non-African American GFR(CKD) >90 (>60 ml/min/1.73 sqM); Potassium 3.5 mmol/L (3.5-5.1); Sodium 137 mmol/L (137-145)
--- NOTE | 2023-12-28 07:12 | P.PN ---
Subjective Progress Note Date: 12/28/23 Subjective: Patient seen at bedside. No significant overnight events. Pertinent positives and negatives discussed above, a complete review of systems was preformed and all the other sytems were negative. Vitals Signs Reveiwed. General: non toxic, no distress, appears at stated age, normal weight Derm: no unusual rashes/lesions, warm Head: atraumatic, normocephalic, symmetric Eyes: EOMI, no lid lag, anicteric sclera, pupils equal round reactive to light ENT: Nose and ears atraumatic Neck: No cervical lymphadenopathy, trachea midline, supple Mouth: no lip lesion, mucus membranes moist Cardiovascular: S1S2 reg, no murmur, positive dorsalis pedis pulse bilateral, no edema Lungs: Decreased air entry bilaterally, no rhonchi, no rales, no accessory muscle use Abdominal: soft, nontender, no guarding Ext: muscle strength 5 out of 5 in all 4 extremities grossly, no gross muscle atrophy, no contractures, Neuro: CN II-XI grossly intact, no gross focal neuro deficits Psych: Alert, oriented, appropriate affect Data Reveiwed Today: Patient Labs: Imaging: EKG shows normal sinus rhythm without axis deviation. Assesment and Plan: Diarrhea: Suspected C. difficile Patient has not had not had bowel movement since arriving at the hospital. In the context of recent discharge from hospital for nausea and vomiting where she received Augmentin which she has been taking 10+ mostly watery bowel movements each day Rapid C. difficile PCR and stool culture still pending Replenishment of potassium (potassium chloride 20 mill equivalents IV and potassium bicarbonate 40 mill equivalents p.o. once) and magnesium [id number] 1 g IVPB every hour (2 total bags given) Continue to monitor BMP for metabolic derangements Continue fluids Hypokalemia and hypomagnesemia: Likely secondary to diarrhea: Resolved Potassium 3.6 this morning up from 2.8 yesterday Replenished potassium with potassium bicarbonate 40 mill equivalents p.o. once and potassium chloride 20 mEq IVPB Continue to monitor BMP for metabolic derangements Also replenished magnesium with magnesium [id number] 1 g IVPB every hour (2 total bags given) Chronic:Hypertension, OA, diverticulitis, GERD, esophageal ulcers, and depression (will continue home medication once confirmed with pharmacy) F [] E [] N regular diet A normally walks at home DVT ppx: Lovenox 40 mg SQ daily Code Status: Full code Anticipated discharge place: To home Anticipated discharge time: Pending clinical course Objective - Vital Signs Vital signs: Vital Signs Temp 98.2 F 12/27/23 18:31 Pulse 67 12/28/23 01:17 Resp 17 12/28/23 01:17 BP 138/80 12/28/23 01:17 Pulse Ox 98 12/28/23 01:17 FiO2 Intake & Output 12/27/23 12/28/23 12/28/23 18:59 06:59 18:59 Intake Total 480 Balance 480 Intake: Oral 480 Other: Voiding Method Bedside Commode # Voids 2 1 - Labs CBC & Chem 7: 12/27/23 05:52 12/28/23 03:30 Labs: Abnormal Lab Results - Last 24 Hours (Table) 12/28/23 Range/Units 03:30 Calcium 10.3 H (8.4-10.2) mg/dL
[2023-12-28 08:10] LABS: HCT 36.6 % (34.0-46.0); HGB 12.3 gm/dL (11.4-16.0); MCH 31.8 pg (25.0-35.0); MCHC 33.5 g/dL (31.0-37.0); MCV 95.1 fL (80.0-100.0); Mean Platelet Volume 7.6; Platelet Count 275 k/uL (150-450); RBC 3.85 m/uL (3.80-5.40); RDW 13.3 % (11.5-15.5); WBC 6.6 k/uL (3.8-10.6)
[2023-12-28 08:29] LABS: African American GFR (CKD) >90 (>60 ml/min/1.73 sqM); Anion Gap 5 mmol/L; Blood Urea Nitrogen 10 mg/dL (7-17); Calcium 10.2 mg/dL (8.4-10.2); Carbon Dioxide 26 mmol/L (22-30); Chloride 107 mmol/L (98-107); Glucose 90 mg/dL (74-99); Non-African American GFR(CKD) >90 (>60 ml/min/1.73 sqM); Potassium 3.8 mmol/L (3.5-5.1); Sodium 138 mmol/L (137-145)
--- NOTE | 2023-12-28 10:50 | P.DS ---
Providers Date of admission: 12/26/23 16:19 Discharge Diagnosis: Diarrhea unknown etiology versus C. difficile Hypokalemia and hypomagnesemia likely secondary to diarrhea Hospital Course: 73-year-old female with a recent admission for sepsis in the past medical history of diverticulitis, GERD, depression, hypertension, esophageal ulcers, and OA presented to the ED for diarrhea and lightheadedness. In the ED patient complained of having 10+ watery bowel movements for the last few days. In the ED patient admitted to diarrhea and abdominal pain but denied headache, chest pain, shortness of breath, palpitations, constipation, and lower extremity swelling. Vitals in the ED were stable except for heart rate of 119. Labs in the ED were significant for sodium 140, potassium 2.8, chloride 110, bicarb 19, glucose 121, calcium 10.4, magnesium 1.5, WBC 8.8, and hemoglobin 14.2. EKG in the ED showed normal sinus rhythm without any axis deviation. Patient was admitted for further workup of diarrhea with unknown etiology and hypokalemia. During her hospital stay, patient did not have a bowel movement even after having a regular diet while being admitted. Symptoms of abdominal cramps and pain improved after admission. Suspicion for C. difficile became less likely as it would be very abnormal for patient with this condition to not have a bowel movement for 2 days. Hypokalemia improved after patient received potassium bicarbonate 40 mill equivalents p.o. once and potassium chloride 20 mEq IVPB once. Patient's labs and vitals are stable and is medically cleared for discharge. PT OT saw patient, recommended subacute rehab facility. Patient is encouraged to follow-up with PCP especially if symptoms of diarrhea return. Pt seen and examined at bedside: Patient was feeling better, and reported she had not had a bowel movement yet. Vital signs reveiwed and stable: General: non toxic, no distress, appears at stated age, normal weight Derm: no unusual rashes/lesions, warm Head: atraumatic, normocephalic, symmetric Eyes: EOMI, no lid lag, anicteric sclera, pupils equal round reactive to light ENT: Nose and ears atraumatic Neck: No cervical lymphadenopathy, trachea midline, supple Mouth: no lip lesion, mucus membranes moist Cardiovascular: S1S2 reg, no murmur, positive dorsalis pedis pulse bilateral, no edema Lungs: Decreased air entry bilaterally, no rhonchi, no rales, no accessory muscle use Abdominal: soft, mildly tender to palpation in all 4 quadrants, no guarding Ext: muscle strength 5 out of 5 in all 4 extremities grossly, no gross muscle atrophy, no contractures, Neuro: CN II-XI grossly intact, no gross focal neuro deficits Psych: Alert, oriented, appropriate affect A total of [] minutes were spent preparing this complex discarge summary. Patient was discharged on []. Attending physician: Radha Blas MD Primary care physician: Jose M Arbeu Patient Condition at Discharge: Good Plan - Discharge Summary Discharge Rx Participant: No New Discharge Prescriptions: No Action Lisinopril-Hctz 20-12.5 mg [Zestoretic 20-12.5] 1 tab PO DAILY Pantoprazole Sodium [Protonix] 40 mg PO BID #60 tab Amoxic-Pot Clav 875-125Mg [Augmentin 875-125] 1 tab PO Q12HR 10 Days #20 tab Venlafaxine HCl [Effexor XR] 75 mg PO DAILY Discharge Medication List Lisinopril-Hctz 20-12.5 mg [Zestoretic 20-12.5] 1 tab PO DAILY 01/29/22 [History] Pantoprazole Sodium [Protonix] 40 mg PO BID #60 tab 04/10/22 [Rx] Venlafaxine HCl [Effexor XR] 75 mg PO DAILY 12/17/23 [History] Amoxic-Pot Clav 875-125Mg [Augmentin 875-125] 1 tab PO Q12HR 10 Days #20 tab 12/21/23 [Rx] Follow up Appointment(s)/Referral(s): Jose M Abreu, [Primary Care Provider] - 1-2 days
[2023-12-28] MEDS: LISINOPRIL-HCTZ 20-12.5 MG 1 EACH TAB PO SCH (11:14)
--- NOTE | 2023-12-28 11:58 | P.PN ---
Subjective Progress Note Date: 12/28/23 Hospital Course: 73-year-old female with a recent admission for sepsis in the past medical history of diverticulitis, GERD, depression, hypertension, esophageal ulcers, and OA presented to the ED for diarrhea and lightheadedness. In the ED patient complained of having 10+ watery bowel movements for the last few days. In the ED patient admitted to diarrhea and abdominal pain but denied headache, chest pain, shortness of breath, palpitations, constipation, and lower extremity swelling. Vitals in the ED were stable except for heart rate of 119. Labs in the ED were significant for sodium 140, potassium 2.8, chloride 110, bicarb 19, glucose 121, calcium 10.4, magnesium 1.5, WBC 8.8, and hemoglobin 14.2. EKG in the ED showed normal sinus rhythm without any axis deviation. Patient was admitted for further workup of diarrhea with unknown etiology and hypokalemia. During her hospital stay, patient did not have a bowel movement even after having a regular diet while being admitted. Symptoms of abdominal cramps and pain improved after admission. Suspicion for C. difficile became less likely as it would be very abnormal for patient with this condition to not have a bowel movement for 2 days. Hypokalemia improved after patient received potassium bicarbonate 40 mill equivalents p.o. once and potassium chloride 20 mEq IVPB once. Patient's labs and vitals are stable and is medically cleared for discharge. PT OT saw patient, recommended subacute rehab facility. Patient is encouraged to follow-up with PCP especially if symptoms of diarrhea return. Subjective: Patient seen at bedside. No significant overnight events. Pertinent positives and negatives discussed above, a complete review of systems was preformed and all the other sytems were negative. Vitals Signs Reveiwed. General: non toxic, no distress, appears at stated age, normal weight Derm: no unusual rashes/lesions, warm Head: atraumatic, normocephalic, symmetric Eyes: EOMI, no lid lag, anicteric sclera, pupils equal round reactive to light ENT: Nose and ears atraumatic Neck: No cervical lymphadenopathy, trachea midline, supple Mouth: no lip lesion, mucus membranes moist Cardiovascular: S1S2 reg, no murmur, positive dorsalis pedis pulse bilateral, no edema Lungs: Decreased air entry bilaterally, no rhonchi, no rales, no accessory muscle use Abdominal: soft, tender to palpation in all 4 quadrants, no guarding Ext: muscle strength 5 out of 5 in all 4 extremities grossly, no gross muscle atrophy, no contractures, Neuro: CN II-XI grossly intact, no gross focal neuro deficits Psych: Alert, oriented, appropriate affect Data Reveiwed Today: Patient Labs: Sodium 138, potassium 3.8, BUN 5, creatinine 10, WBC 6.6, hemoglobin 12.3, MCV 95.1, and platelet count 275. Imaging: No new imaging Assesment and Plan: Diarrhea: Suspected C. difficile In the context of recent discharge from hospital for nausea and vomiting where she received Augmentin which she has been taking 10+ mostly watery bowel movements each day Rapid C. difficile PCR and stool culture still pending sample Replenishment of potassium (potassium chloride 20 mill equivalents IV and potassium bicarbonate 40 mill equivalents p.o. once) and magnesium [id number] 1 g IVPB every hour (2 total bags given) Has not had a bowel movement since admission Hypokalemia and hypomagnesemia: Likely secondary to diarrhea Potassium 3.6 this morning up from 2.8 yesterday Replenished potassium with potassium bicarbonate 40 mill equivalents p.o. once and potassium chloride 20 mEq IVPB Continue to monitor BMP for metabolic derangements Also replenished magnesium with magnesium [id number] 1 g IVPB every hour (2 total bags given) Chronic:Hypertension, OA, diverticulitis, GERD, esophageal ulcers, and depre ssion (will continue home medication once confirmed with pharmacy) F none E none N regular diet A normally walks at home DVT ppx: Lovenox 40 mg SQ daily Code Status: Full code Anticipated discharge place: To subacute rehab Anticipated discharge time: Pending placement at subacute rehab, likely tomorrow (12/28) I have seen and evaluated the patient today. Discussed with the resident and agree with the residents subjective and objective as documented in the resident's note. The assessment and plan was discussed and outlined as below. No episodes of diarrhea. Unlikely C. diff at this point due to lack of symptoms. Electrolytes normalized. Patient reports unstable gait. PT OT recommending SNF. OBRA completed by me. Medically stable pending SNF placement which was discussed with case management. Unable gait: PT and OT recommending SNF. Dehydration due to intractable diarrhea: Obtain C. diff. Hypertension: Lisinopril-HCTZ 20-12.5 mg PO QD. Depression: Effexor 75 mg PO QD Anxiety: Xanax 0.25 mg PO BID PRN. GERD: Protonix 40 mg PO BID Resolved: HypoK, HypoMg, Metabolic acidosis Objective - Vital Signs Vital signs: Vital Signs Temp 97.7 F 12/28/23 07:00 Pulse 83 12/28/23 07:00 Resp 16 12/28/23 07:00 BP 155/93 12/28/23 07:00 Pulse Ox 97 12/28/23 07:00 FiO2 Intake & Output 12/27/23 12/28/23 12/28/23 18:59 06:59 18:59 Intake Total 480 236 Balance 480 236 Intake: Oral 480 236 Other: Voiding Method Bedside Commode # Voids 2 1 - Labs CBC & Chem 7: 12/28/23 07:11 12/28/23 07:11 Labs: Abnormal Lab Results - Last 24 Hours (Table) 12/28/23 Range/Units 03:30 Calcium 10.3 H (8.4-10.2) mg/dL
[2023-12-29] MEDS: ALPRAZolam 0.5 MG TAB PO PRN (03:03)
--- NOTE | 2023-12-29 08:50 | P.PN ---
Subjective Progress Note Date: 12/29/23 Hospital Course: 73-year-old female with a recent admission for sepsis in the past medical history of diverticulitis, GERD, depression, hypertension, esophageal ulcers, and OA presented to the ED for diarrhea and lightheadedness. In the ED patient complained of having 10+ watery bowel movements for the last few days. In the ED patient admitted to diarrhea and abdominal pain but denied headache, chest pain, shortness of breath, palpitations, constipation, and lower extremity swelling. Vitals in the ED were stable except for heart rate of 119. Labs in the ED were significant for sodium 140, potassium 2.8, chloride 110, bicarb 19, glucose 121, calcium 10.4, magnesium 1.5, WBC 8.8, and hemoglobin 14.2. EKG in the ED showed normal sinus rhythm without any axis deviation. Patient was admitted for further workup of diarrhea with unknown etiology and hypokalemia. During her hospital stay, patient did not have a bowel movement even after having a regular diet while being admitted. Symptoms of abdominal cramps and pain improved after admission. Suspicion for C. difficile became less likely as it would be very abnormal for patient with this condition to not have a bowel movement for 2 days. Hypokalemia improved after patient received potassium bicarbonate 40 mill equivalents p.o. once and potassium chloride 20 mEq IVPB once. Patient's labs and vitals are stable and is medically cleared for discharge. PT OT saw patient, recommended subacute rehab facility. Patient is encouraged to follow-up with PCP especially if symptoms of diarrhea return. Subjective: Patient seen at bedside. No significant overnight events. Patient reports she is feeling well, just hopes to have a bowel movement soon. She also states anxiety is better controlled on increased dosage of Xanax (0.5). Pertinent positives and negatives discussed above, a complete review of systems was preformed and all the other sytems were negative. Vitals Signs Reveiwed. General: non toxic, no distress, appears at stated age, normal weight Derm: no unusual rashes/lesions, warm Head: atraumatic, normocephalic, symmetric Eyes: EOMI, no lid lag, anicteric sclera, pupils equal round reactive to light ENT: Nose and ears atraumatic Neck: No cervical lymphadenopathy, trachea midline, supple Mouth: no lip lesion, mucus membranes moist Cardiovascular: S1S2 reg, no murmur, positive dorsalis pedis pulse bilateral, no edema Lungs: Decreased air entry bilaterally, no rhonchi, no rales, no accessory muscle use Abdominal: soft, minor tenderness to palpation in all 4 quadrants, no guarding Ext: muscle strength 5 out of 5 in all 4 extremities grossly, no gross muscle atrophy, no contractures, Neuro: CN II-XI grossly intact, no gross focal neuro deficits Psych: Alert, oriented, appropriate affect Data Reveiwed Today: Patient Labs: No new labs. Imaging: No new imaging Assesment and Plan: Diarrhea: Suspected C. difficile In the context of recent discharge from hospital for nausea and vomiting where she received Augmentin which she has been taking 10+ mostly watery bowel movements each day Rapid C. difficile PCR and stool culture still pending sample, has not had bowel movement since admission while on regular diet Replenishment of potassium (potassium chloride 20 mill equivalents IV and potassium bicarbonate 40 mill equivalents p.o. once) and magnesium [id number] 1 g IVPB every hour (2 total bags given) Xanax for anxiety increased to 2.5 mg. Anxiety likely secondary to current condition. Hypokalemia and hypomagnesemia: Likely secondary to diarrhea Potassium 3.6 this morning up from 2.8 yesterday Replenished potassium with potassium bicarbonate 40 mill equivalents p.o. once and potassium chloride 20 mEq IVPB Continue to monitor BMP for metabolic derangements Also replenished magnesium with magnesium [id number] 1 g IVPB every hour (2 total bags given) Chronic:Hypertension, OA, diverticulitis, GERD, esophageal ulcers, and depression (will continue home medication once confirmed with pharmacy) PT: Came and saw her yesterday (12/27) and recommended SNF, [facility] will accept her on Sunday (12/30). Medically the patient is cleared. F none E none N regular diet A normally walks at home DVT ppx: Lovenox 40 mg SQ daily Code Status: Full code Anticipated discharge place: To subacute rehab Anticipated discharge time: Jb on Sunday (12/30) I have seen and evaluated the patient today. Discussed with the resident and agree with the residents subjective and objective as documented in the resident's note. The assessment and plan was discussed and outlined as below. No episodes of diarrhea. Unlikely C. diff at this point due to lack of symptoms. Electrolytes normalized. Patient reports unstable gait. PT OT recommending SNF. OBRA completed by me. Medically stable pending SNF placement. Unable gait: PT and OT recommending SNF. Case management on board. Dehydration due to intractable diarrhea: Unlikely. Day 3 of no BM. Hypertension: Lisinopril-HCTZ 20-12.5 mg PO QD. Depression: Effexor 75 mg PO QD Anxiety: Xanax increased to 0.5 mg PO BID PRN. GERD: Protonix 40 mg PO BID Resolved: HypoK, HypoMg, Metabolic acidosis Objective - Vital Signs Vital signs: Vital Signs Temp 97.7 F 12/29/23 07:33 Pulse 105 H 12/29/23 07:33 Resp 20 12/29/23 07:33 BP 123/85 12/29/23 07:33 Pulse Ox 98 12/29/23 07:33 FiO2 Intake & Output 12/28/23 12/29/23 12/29/23 18:59 06:59 18:59 Intake Total 236 715 Output Total 600 Balance 236 -600 715 Intake: Oral 236 715 Output: Urine 600 Other: # Voids 2 1 - Labs CBC & Chem 7: 12/28/23 07:11 12/28/23 07:11
[2023-12-30 13:20] VITALS: RESP 16
--- NOTE | 2023-12-30 14:28 | P.PN ---
Subjective Progress Note Date: 12/30/23 73 year old F with PMH of anxiety and HTN presents to the ED for intractable watery diarrhea with > 10 daily episodes. She was recently discharged on 12/16 for sepsis thought to be related to gastrotenteritis, CT AP negative for intra- abdominal process, discharged on Augmentin. She reports profuse diarrhea since then along with numbness and tingling "all over her body" which prompted her to come to the ED. In the ED she underwent extensive evaluation. BP 107/78, HR 119, T 98F, RR 18, 98% on RA. CBC, Coag panel, CMP significant for K 2.8, Cl 110, bicarb 19, glu 121, Ca 10.4, Mag 1.5. Lactic acid 1.7. UA with ketones. EKG sinus rhythm. Patient was admitted for diarrhea, dehydation and electrolyte dera ngement. She has had no episodes of diarrhea since her hospitalization. Her electrolytes have been corrected. Her whole body numbness and tingling resolved with PRN Xanax. PT and OT evaluated the patient and recommended SNF which is currently pending. 12/29 Patient was seen and examined. No acute events overnight. No complaints. General: non toxic, no distress, appears at stated age Derm: warm, dry Head: atraumatic, normocephalic, symmetric Eyes: EOMI, no lid lag, anicteric sclera Mouth: no lip lesion, mucus membranes moist Cardiovascular: Good distal perfusion in all 4 extremities Lungs: Breathing comfortably, no accessory muscle use Ext: no gross muscle atrophy, no edema, no contractures Neuro: no focal neuro deficits Psych: Alert, oriented, appropriate affect Based on my assessment of this patient, this patient meets a moderate complexity level of care. Unable gait: PT and OT recommending SNF. Case management on board. Dehydration due to intractable diarrhea: Unlikely. Day 3 of no BM. Hypertension: Lisinopril-HCTZ 20-12.5 mg PO QD. Depression: Effexor 75 mg PO QD Anxiety: Xanax increased to 0.5 mg PO BID PRN. GERD: Protonix 40 mg PO BID Resolved: HypoK, HypoMg, Metabolic acidosis CODE STATUS: FULL CODE DVT Prophylaxis: Lovenox SQ GI Prophylaxis: Protonix PO Designated medical POA if patient is not able to make medical decisions for themselves: I have reviewed the following bridal consultant notes: I have reviewed the results of the following tests: I have ordered the following tests: I have discussed the care of this patient with the following independent historian: I have independently interpreted the following test below: I have discussed the management of this patient with the following physician: Objective - Vital Signs Vital signs: Vital Signs Temp 97.7 F 12/30/23 12:56 Pulse 84 12/30/23 12:56 Resp 16 12/30/23 12:56 BP 103/68 12/30/23 12:56 Pulse Ox 95 12/30/23 12:56 FiO2 Intake & Output 12/29/23 12/30/23 12/30/23 18:59 06:59 18:59 Intake Total 715 10 Balance 715 10 Intake: IV 10 Invasive Line 1 10 Oral 715 Other: Voiding Method Toilet # Voids 1 2 1 - Labs CBC & Chem 7: 12/28/23 07:11 12/28/23 07:11
[2023-12-31] MEDS: DOCUSATE 100 MG CAP PO STA (01:39)
--- NOTE | 2023-12-31 10:54 | P.DS ---
Providers Date of admission: 12/26/23 16:19 Discharge Diagnosis: Diarrhea: Unknown etiology Hypokalemia and hypomagnesemia: Likely secondary to diarrhea Hypertension OA Diverticulitis GERD Esophageal ulcers Depression Hospital Course: Pt seen and examined at bedside: 73-year-old female with a recent admission for sepsis in the past medical history of diverticulitis, GERD, depression, hypertension, esophageal ulcers, and OA presented to the ED for diarrhea and lightheadedness. In the ED patient complained of having 10+ watery bowel mov ements for the last few days. In the ED patient admitted to diarrhea and abdominal pain but denied headache, chest pain, shortness of breath, palpitations, constipation, and lower extremity swelling. Vitals in the ED were stable except for heart rate of 119. Labs in the ED were significant for sodium 140, potassium 2.8, chloride 110, bicarb 19, glucose 121, calcium 10.4, magnesium 1.5, WBC 8.8, and hemoglobin 14.2. EKG in the ED showed normal sinus rhythm without any axis deviation. Patient was admitted for further workup of diarrhea with unknown etiology and hypokalemia. During her hospital stay, patient did not have a bowel movement even after having a regular diet while being admitted. Symptoms of abdominal cramps and pain improved after admission. Suspicion for C. difficile became less likely as it would be very abnormal for patient with this condition to not have a bowel movement for 2 days. Hypokalemia improved after patient received potassium bicarbonate 40 mill equivalents p.o. once and potassium chloride 20 mEq IVPB once. Patient's labs and vitals are stable and is medically cleared for discharge. PT OT saw patient, recommended subacute rehab facility. Patient is encouraged to follow- up with PCP especially if symptoms of diarrhea return. Patient seen at bedside today. No significant overnight events. Patient had normal bowel movement this morning. Patient is excited to get to subacute rehab. Vital signs reveiwed and stable: General: non toxic, no distress, appears at stated age, normal weight Derm: no unusual rashes/lesions, warm Head: atraumatic, normocephalic, symmetric Eyes: EOMI, no lid lag, anicteric sclera, pupils equal round reactive to light ENT: Nose and ears atraumatic Neck: No cervical lymphadenopathy, trachea midline, supple Mouth: no lip lesion, mucus membranes moist Cardiovascular: S1S2 reg, no murmur, positive dorsalis pedis pulse bilateral, no edema Lungs: Decreased air entry bilaterally, no rhonchi, no rales, no accessory muscle use Abdominal: soft, nontender in all 4 qusdrants, no guarding Ext: muscle strength 5 out of 5 in all 4 extremities grossly, no gross muscle atrophy, no contractures, Neuro: CN II-XI grossly intact, no gross focal neuro deficits Psych: Alert, oriented, appropriate affect A total of [] minutes were spent preparing this complex discarge summary. Patient was discharged on []. Attending physician: Radha Blas MD Primary care physician: [facility] Course: I have seen and evaluated the patient today. Discussed with the resident and agree with the residents subjective and objective as documented in the resident's note. The assessment and plan was discussed and outlined as below. One solid bowel movement today. Discussed with case management. Plans for SNF today. Discharge Diagnosis: Unstable gait Dehydration due to intractable diarrhea Hypertension Depression Anxiety GERD Resolved: HypoK, HypoMg, Metabolic acidosis This complex discharge took 35 minutes to complete. Patient Condition at Discharge: Good Plan - Discharge Summary Discharge Rx Participant: No New Discharge Prescriptions: New ALPRAZolam [Xanax] 0.5 mg PO BID PRN #6 tab PRN Reason: Anxiety Continue Lisinopril-Hctz 20-12.5 mg [Zestoretic 20-12.5] 1 tab PO DAILY Pantoprazole Sodium [Protonix] 40 mg PO BID #60 tab Venlafaxine HCl [Effexor XR] 75 mg PO DAILY Discontinued Amoxic-Pot Clav 875-125Mg [Augmentin 875-125] 1 tab PO Q12HR 10 Days #20 tab Discharge Medication List Lisinopril-Hctz 20-12.5 mg [Zestoretic 20-12.5] 1 tab PO DAILY 01/29/22 [History] Pantoprazole Sodium [Protonix] 40 mg PO BID #60 tab 04/10/22 [Rx] Venlafaxine HCl [Effexor XR] 75 mg PO DAILY 12/17/23 [History] ALPRAZolam [Xanax] 0.5 mg PO BID PRN #6 tab 12/31/23 [Rx] Follow up Appointment(s)/Referral(s): Jose M Abreu, DO [Primary Care Provider] - 1-2 days Discharge Disposition: TRANSFER TO SNF/ECF
[2023-12-31 12:15] VITALS: BP 101/68; PULSE 76; TEMP 97.8
== END 2023-12-31 15:23 | DRG 641 ==
LOC: EC 12:37 → OBSVTOIN 16:19 → 6NMEDSUR 16:19 → 5NMEDONC 12-29 09:33
PROVIDERS: ADMIT Internal Medicine; ATTEND Internal Medicine
DX: E86.0 Dehydration (principal); E87.29 Other acidosis; M06.9 Rheumatoid arthritis, unspecified; F32.A Depression, unspecified; I10 Essential (primary) hypertension; F10.11 Alcohol abuse, in remission; E87.6 Hypokalemia; E83.42 Hypomagnesemia; R19.7 Diarrhea, unspecified; E87.8 Other disorders of electrolyte and fluid balance, not elsewhere classified; G62.9 Polyneuropathy, unspecified; F41.0 Panic disorder [episodic paroxysmal anxiety]; F43.10 Post-traumatic stress disorder, unspecified; M79.7 Fibromyalgia; M81.0 Age-related osteoporosis without current pathological fracture; R26.81 Unsteadiness on feet; K21.9 Gastro-esophageal reflux disease without esophagitis; G89.29 Other chronic pain; M54.50 Low back pain, unspecified; M19.90 Unspecified osteoarthritis, unspecified site; Z79.899 Other long term (current) drug therapy; Z87.891 Personal history of nicotine dependence; Z96.612 Presence of left artificial shoulder joint; Z98.1 Arthrodesis status; Z85.3 Personal history of malignant neoplasm of breast; Z85.41 Personal history of malignant neoplasm of cervix uteri; E78.5 Hyperlipidemia, unspecified; Z86.19 Personal history of other infectious and parasitic diseases; Z92.21 Personal history of antineoplastic chemotherapy; Z92.3 Personal history of irradiation; Z88.2 Allergy status to sulfonamides; Z88.8 Allergy status to other drugs, medicaments and biological substances; Z88.1 Allergy status to other antibiotic agents; Z91.040 Latex allergy status
CPT/HCPCS: 36415; 80048; 80053; 81003; 83605; 83690; 83735; 85025; 85027; 93005; 96365; 96366; 96368; 99291

== ENCOUNTER 2024-03-30 13:01 | Emergency (ER) | payer MEDICARE ==
[2024-03-30 13:07] VITALS: RESP 20; TEMP 98.3
--- NOTE | 2024-03-30 13:18 | ED ---
General Adult HPI - General Chief complaint: Back Pain/Injury Stated complaint: back/foot pain Time Seen by Provider: 03/30/24 13:05 Source: patient, RN notes reviewed, old records reviewed Mode of arrival: EMS Limitations: no limitations - History of Present Illness Initial comments: 74-year-old female presenting with mid and low back pain after fall which occurred yesterday. Patient states she fell yesterday in her kitchen which was secondary to her neuropathy in her feet which is chronic. She fell injuring the mid and lower back. No bowel or bladder incontinence. No new sensory changes to the legs. No loss consciousness. Patient states she was previously on 10 mg [place] but has not had this for many months. - Related Data Home Medications Medication Instructions Recorded Confirmed Lisinopril-Hctz 20-12.5 mg 1 tab PO DAILY 01/29/22 01/19/24 [Zestoretic 20-12.5] Venlafaxine HCl [Effexor XR] 75 mg PO DAILY 12/17/23 01/19/24 ALPRAZolam [Xanax] 0.5 mg PO TID PRN 01/19/24 01/19/24 HYDROcodone/APAP 5-325MG [[place] 1 tab PO Q6HR PRN 01/19/24 01/19/24 5-325] Venlafaxine HCl [Effexor XR] 150 mg PO DAILY 01/19/24 01/19/24 Previous Rx's Medication Instructions Recorded Pantoprazole Sodium [Protonix] 40 mg PO BID #60 tab 04/10/22 Allergies Allergy/AdvReac Type Severity Reaction Status Date / Time Sulfa (Sulfonamide Allergy Severe Rash/Hives Verified 01/19/24 11:38 Antibiotics) Tetracyclines Allergy Severe Rash/Hives Verified 01/19/24 11:38 latex Allergy Rash/Hives Verified 01/19/24 11:38 lorazepam [From Ativan] AdvReac Confusion Verified 01/19/24 11:38 TIDE AND EXTRA LAUNDRY SOAP Allergy Rash/Hives Uncoded 01/19/24 11:38 Review of Systems ROS Statement: Those systems with pertinent positive or pertinent negative responses have been documented in the HPI. ROS Other: All systems not noted in ROS Statement are negative. Past Medical History Past Medical History: Cancer, Fibromyalgia, GERD/Reflux, GI Bleed, Hyperlipidemia, Hypertension, Liver Disease, Osteoarthritis (OA), Rheumatoid Arthritis (RA), Syncope Additional Past Medical History / Comment(s): Past lower GI bleed, diverticulitis, colitis, IBS, gastric ulcer, hepatitis A, L breast cancer with surgeries/chemo and radiation, cervical cancer with surgery, bronchitis, osteoporosis, neuropathy bilateral feet and hands, chronic pain, past L humeral fracture, T11 spinal injury, chronic cervical and lumbar back pain, migraines, osteoarthritis and rheumatoid arthritis in multiple joints. past drug and etoh abuse- per ptclear for 26 years. History of Any Multi-Drug Resistant Organisms: None Reported Past Surgical History: Section, Hysterectomy, Joint Replacement, Orthopedic Surgery, Tonsillectomy Additional Past Surgical History / Comment(s): ORIF L humerus with carlos/screws since removed, total L shoulder arthroplasty, cervical and lumbar fusions, pain clinic procedures, D&C, bilateral breast reductions with nonhealing wound and had closure/skin grafting, L breast lumpectomies and then L breast mastectomy, R tympanoplasty, EGDs, colonoscopies, ivy fundoplasty, loop recorder. pain pump in left lower abd. Past Anesthesia/Blood Transfusion Reactions: No Reported Reaction Additional Past Anesthesia/Blood Transfusion Reaction / Comment(s): Pt received blood this admission without reaction. Past Psychological History: Anxiety, Depression, Panic Disorder, PTSD Smoking Status: Former smoker Past Alcohol Use History: None Reported Past Drug Use History: None Reported - Past Family History Mother Family Medical History: Myocardial Infarction (RI) Additional Family Medical History / Comment(s): . General Exam Limitations: no limitations General appearance: alert, in no apparent distress Head exam: Present: atraumatic, normocephalic Eye exam: Present: normal appearance, PERRL ENT exam: Present: normal exam Neck exam: Present: normal inspection. Absent: tenderness, meningismus Respiratory exam: Present: normal lung sounds bilaterally. Absent: respiratory distress, wheezes Cardiovascular Exam: Present: regular rate. Absent: normal rhythm, bradycardia GI/Abdominal exam: Present: soft. Absent: distended, tenderness Extremities exam: Present: normal capillary refill, other (Pedal pulses are symmetric). Absent: pedal edema Back exam: Present: paraspinal tenderness, vertebral tenderness Neurological exam: Present: alert, oriented X3, CN II-XII intact Psychiatric exam: Present: normal affect, normal mood Skin exam: Present: warm, dry, intact. Absent: cyanosis, diaphoretic Course Vital Signs 03/30/24 03/30/24 13:04 14:41 Temperature 98.3 F Pulse Rate 90 84 Respiratory 20 20 Rate Blood Pressure 164/95 116/78 O2 Sat by Pulse 97 96 Oximetry Medical Decision Making - Medical Decision Making Was pt. sent in by a medical professional or institution (, [facility], [employer], urgent care, hospital, or jail...) When possible be specific @ -No Did you speak to anyone other than the patient for history (EMS, parent, family, police, friend...)? What history was obtained from this source @ -No Did you review nursing and triage notes (agree or disagree)? Why? @ -I reviewed and agree with nursing and triage notes Were old charts reviewed (outside hosp., previous admission, EMS record, old EKG, old radiological studies, urgent care reports/EKG's, jail records)? Report findings @ -No old charts were reviewed Differential Musculoskeletal Muscular strain, contusion, ligament sprain, fracture, arthritis, septic arthritis, bursitis, cellulitis, muscle spasm, nerve compression, DVT, arterial occlusion, herpes zoster, electrolyte abnormality, tumor.... This is not meant to be in all inclusive list EKG interpreted by me (3pts min.). @ -As above X-rays interpreted by me (1pt min.). @ -X-rays of the thoracic and lumbar spine performed. Postsurgical changes in the lumbar spine with persistent compression fracture and T12 and L1. Prior vertebroplasty. CT interpreted by me (1pt min.). @ -None done U/S interpreted by me (1pt. min.). @ -None done What testing was considered but not performed or refused? (CT, X-rays, U/S, labs)? Why? @ -None What meds were considered but not given or refused? Why? @ -None Did you discuss the management of the patient with other professionals (professionals i.e. [facility] [place], [employer], lab, RT, psych nurse, clinical social work therapist, inflated pad buffer, teacher, chief juvenile probation officer, case management manager)? Give summary @ -No Was smoking cessation discussed for >3mins.? @ -No Was critical care preformed (if so, how long)? @ -No Were there social determinants of health that impacted care today? How? (Homelessness, low income, unemployed, alcoholism, drug addiction, transportation, low edu. Level, literacy, decrease access to med. care, retirement, rehab)? @ -No Was there de-escalation of care discussed even if they declined (Discuss DNR or withdrawal of care, Hospice)? DNR status @ -No What co-morbidities impacted this encounter? (DM, HTN, Smoking, COPD, CAD, Cancer, CVA, ARF, Chemo, Hep., AIDS, mental health diagnosis, sleep apnea, morbid obesity)? @ -None Was patient admitted / discharged? Hospital course, mention meds given and route, prescriptions, significant lab abnormalities, going to OR and other pertinent info. @ -[74-year-old female with mechanical fall mid and low back pain. X-rays of the thoracic and lumbar spine show prior surgical changes as well as old compression fractures with new loss of disc height and endplate changes at L2- L3. Patient's pain is treated in the emergency department with [place] and Toradol. She will follow-up with her orthopedic surgeon. Stable for discharge. Undiagnosed new problem with uncertain prognosis? @ -No Drug Therapy requiring intensive monitoring for toxicity (Heparin, Nitro, Insulin, Cardizem)? @ -No Were any procedures done? @ -No Diagnosis/symptom? @Back pain after fall, compression fracture Acute, or Chronic, or Acute on Chronic? @Acute on chronic Uncomplicated (without systemic symptoms) or Complicated (systemic symptoms)? @ -Default Side effects of treatment? @ -No Exacerbation, Progression, or Severe Exacerbation? @ -No Poses a threat to life or bodily function? How? (Chest pain, [place], [place], pneumonia, PE, COPD, DKA, ARF, appy, cholecystitis, CVA, Diverticulitis, Homicidal, Suicidal, threat to staff... and all critical care pts) @ -No Disposition Clinical Impression: Degeneration of intervertebral disc, Fall Disposition: HOME SELF-CARE Condition: Fair Instructions (If sedation given, give patient instructions): Acute Low Back Pain (ED) Additional Instructions: please take tylenol for pain. please follow up with your orthopedic surgeon. Is patient prescribed a controlled substance at d/c from ED?: No Referrals: Jose M Abreu DO [Primary Care Provider] - 1-2 days Time of Disposition: 14:50
[2024-03-30] MEDS: HYDROcodone/APAP 10-325MG 1 EACH TAB PO ONE (13:42)
--- NOTE | 2024-03-30 14:40 | XR ---
EXAMINATION TYPE: XR lumbar spine 2 or 3V DATE OF EXAM: 03/30/2024 COMPARISON: 06/02/2015, 01/09/2024 CT HISTORY: Fall, pain TECHNIQUE: 3 view lumbar spine FINDINGS: Pedicle screws are present L4-S1. Disc spacer present L4-5 and L5-S1. Postsurgical changes appear stable from comparison. There is interval vertebral plasty of L2. There is loss of disc height L2-3 with sclerotic endplate c hanges. There is an old compression deformity of T11 which appears stable from comparison. There is a avis bernabe deformity of T12 which was not present previously x-ray, this was present on the CT of 12/20/2023. No retropulsion is evident. IMPRESSION: 1. Old compression deformities of T11 and T12. 2. Postsurgical vertebral plasty changes L2 with new loss of disc height and endplate changes at L2-3 . [facility], Workstation: [facility], 03/30/2024 2:38 PM
--- NOTE | 2024-03-30 14:43 | XR ---
EXAMINATION TYPE: XR thoracic spine 2V DATE OF EXAM: 03/30/2024 COMPARISON: CT abdomen and pelvis 12/20/2023, 01/05/2014 HISTORY: Fall, pain TECHNIQUE: 3 view thoracic spine FINDINGS: There are 12 thoracic type vertebral bodies. The pedicles are intact. Scoliosis is present through the thoracic spine. There is increased kyphosis present. Old compression deformities of T11 a nd T12 are evident. Remaining thoracic vertebral body heights are preserved. Vertebral body alignment is otherwise preser beth. Anterior cervical fusion is noted. IMPRESSION: 1. No acute osseous abnormalities thoracic spine [facility], Workstation: [facility], 03/30/2024 2:40 PM
[2024-03-30] MEDS: KETOROLAC 15 MG/ML 1 ML VIAL IM STA (14:49)
[2024-03-30 15:15] VITALS: BP 130/68; PULSE 68
== END 2024-03-30 15:15 | disposition home or self-care (01) ==
LOC: EC 13:01
CPT/HCPCS: 72070; 72100; 96372; 99284

== ENCOUNTER 2024-04-07 21:36 | Observation (INO) | payer MEDICARE ==
[2024-04-07 22:36] LABS: Basophils % (A) 0 %; Eosinophils # (A) 0.3 k/uL (0-0.7); Eosinophils % (A) 3 %; HCT 40.8 % (34.0-46.0); HGB 13.2 gm/dL (11.4-16.0); Hypochromasia Slight; Lymphocytes # (A) 1.9 k/uL (1.0-4.8); Lymphocytes % (A) 20 %; MCH 31.7 pg (25.0-35.0); MCHC 32.3 g/dL (31.0-37.0); Mean Platelet Volume 7.8; Monocytes # (A) 0.4 k/uL (0-1.0); Monocytes % (A) 4 %; Neutrophils # (A) 6.4 k/uL (1.3-7.7); Neutrophils % (A) 69 %; Platelet Count 366 k/uL (150-450); RBC 4.16 m/uL (3.80-5.40); WBC 9.3 k/uL (3.8-10.6)
[2024-04-07 22:45] LABS: INR 0.9 (<1.2); Partial Thromboplastin Time 24.2 sec (22.0-30.0)
[2024-04-07 22:46] LABS: ALT 16 U/L (4-34); AST 22 U/L (14-36); African American GFR (CKD) 85 (>60 ml/min/1.73 sqM); Albumin 4.3 g/dL (3.5-5.0); Alkaline Phosphatase 133 U/L (38-126); Anion Gap 11 mmol/L; Blood Urea Nitrogen 17 mg/dL (7-17); Calcium 10.9 mg/dL (8.4-10.2); Carbon Dioxide 21 mmol/L (22-30); Chloride 109 mmol/L (98-107); Glucose 103 mg/dL (74-99); Non-African American GFR(CKD) 74 (>60 ml/min/1.73 sqM); Potassium 4.3 mmol/L (3.5-5.1); Sodium 141 mmol/L (137-145); Total Bilirubin 0.3 mg/dL (0.2-1.3); Total Protein 6.8 g/dL (6.3-8.2)
[2024-04-07] MEDS: MORPHINE SULFATE 4 MG/ML SYRINGE IVP STA (23:09)
--- NOTE | 2024-04-07 23:37 | CT ---
EXAMINATION TYPE: CT abdomen pelvis w con DATE OF EXAM: 04/07/2024 HISTORY: Soft BM's for the past 2 weeks. Last 2 bm's had blood and then bright red blood in stools. H as history of Gi bleed and has a small hemorrhoid. Alert and oriented x4, BP 146/90, Sinus rhythm, Ox ygen 96% on room air. CT DLP: 756.5mGycm Automated Exposure Control for Dose Reduction was Utilized. CONTRAST: CT scan of the abdomen and pelvis is performed with IV Contrast, patient injected with 100ml mL of Is ovue 300. COMPARISON: Prior CT December 20, 2023 FINDINGS: LUNG BASES: No significant abnormality is appreciated. LIVER/GB: Surgical clips along medial aspect of the liver axial image 16 which demonstrated. Liver re han diffusely low dense suggesting fatty infiltrative hepatocellular disease PANCREAS: No significant abnormality is seen. SPLEEN: No significant abnormality is seen. ADRENALS: No significant abnormality is seen. KIDNEYS: There is 1.7 cm simple appearing thin-walled cyst mid pole of the right kidney delayed axial image 33. BOWEL: Small to moderate size hiatal hernia redemonstrated. Slightly more prominent fluid-filled smal l bowel loops in the lower abdomen. No greater than 3.0 cm dilatation. Mild to moderate wall thickeni ng throughout the colon is present. There are distal colonic diverticula. Mild fat stranding left low er quadrant may be present. This is slightly obscured by artifact from reference axial image 57. UTERUS/ADNEXA: Uterus is surgically absent. LYMPH NODES: No greater than 1cm abdominal or pelvic lymph nodes are appreciated. OSSEOUS STRUCTURES: Postsurgical change L4-S1 levels is redemonstrated. Vertebroplasty at L1 level. Moderate to severe disc space narrowing with endplate sclerosis at L1-L2 level. Persistent mild to mo derate height loss involving T10 and T11 vertebra. Persistent vertical linear enhancement possible ve ssel in the thoracolumbar spinal canal. OTHER: There is left anterior pelvic stimulator device redemonstrated. IMPRESSION: Probable mild uncomplicated colitis. Possible acute diverticulitis left lower quadrant. O verall nonspecific but favor nonobstructive bowel gas pattern. Correlate clinically. [facility], , 04/07/2024 11:34 PM
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
[2024-04-08] MEDS ORDERED: NALOXONE 0.4 MG/ML 1 ML VIAL IV PRN (00:36)
[2024-04-08] MEDS: DIPHENOX-ATROP 2.5-0.025 MG 1 EACH TAB PO SCH (01:14)
[2024-04-08] MEDS: PIPERACILLIN-TAZOBACTAM 3.375 GM in SODIUM CHLORIDE 0.9% 100 ML IVPB SCH (02:24)
[2024-04-08] MEDS: MORPHINE SULFATE 2 MG/ML SYRINGE IVP STA (03:57)
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
[2024-04-08] MEDS: PANTOPRAZOLE 40 MG/10 ML VIAL IV SCH (09:06)
[2024-04-08] MEDS: LISINOPRIL-HCTZ 20-12.5 MG 1 EACH TAB PO SCH (10:42)
[2024-04-08] MEDS: MORPHINE SULFATE 2 MG/ML SYRINGE IVP PRN (11:51)
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
[2024-04-08] MEDS: LEVOFLOXACIN 500MG-D5W PMX 500 MG in DEXTROSE/WATER 1 100ML.BAG IVPB SCH (14:45)
[2024-04-08] MEDS: ONDANSETRON 4 MG/2 ML VIAL IVP PRN (16:09)
[2024-04-08] MEDS: metroNIDAZOLE-NS PMX 500 MG in SALINE 1 100ML.BAG IVPB SCH (16:09)
[2024-04-09] MEDS: MIRTAZAPINE 15 MG TAB PO SCH (00:07)
[2024-04-09 08:33] LABS: Basophils # (A) 0.02 X 10*3/uL (0.00-0.10); Basophils % (A) 0.4 %; Eosinophils % (A) 3.6 %; HCT 33.4 % (37.2-46.3); HGB 10.9 g/dL (12.0-15.0); Lymphocytes # (A) 2.49 X 10*3/uL (0.90-5.00); MCH 31.9 pg (27.0-32.0); MCHC 32.6 g/dL (32.0-37.0); MCV 97.7 FL (80.0-97.0); Mean Platelet Volume 10.3 FL (9.5-12.2); Monocytes # (A) 0.46 X 10*3/uL (0.20-1.00); Monocytes % (A) 8.3 %; NRBC Per 100 WBC 0 X 10*3/uL (0.00-0.01); Neutrophils # (A) 2.34 X 10*3/uL (1.80-7.70); Neutrophils % (A) 42.3 %; Platelet Count 250 X 10*3/uL (140-440); RBC 3.42 X 10*6/uL (4.10-5.20); RDW 12.7 % (11.5-14.5); WBC 5.53 X 10*3/uL (4.50-10.00)
[2024-04-09 08:42] LABS: BUN/Creat Ratio 11.57 Ratio (12.00-20.00); Blood Urea Nitrogen 8.1 mg/dL (9.0-27.0); Calcium 9.8 mg/dL (8.7-10.3); Carbon Dioxide 21.6 mmol/L (21.6-31.8); Chloride 109 mmol/L (96-109); Glucose 91 mg/dL (70-110); Potassium 4.3 mmol/L (3.5-5.5); Sodium 141 mmol/L (135-145)
--- NOTE | 2024-04-09 11:10 | P.PN ---
Subjective Progress Note Date: 04/09/24 74-year-old female with past medical history of PUD, diverticulitis, GERD presents to the ER with acute GI bleed. Patient states she has 3-week history of ongoing diarrhea. Yesterday she states that she began to have sharp lower abdominal pain that was cramping, with nausea and diaphoresis. She also states at that time she had 2 episodes of bloody diarrhea which coated the toilet bowl. She continues to have constant pain in the lower abdomen that is dull in nature. Initial lab work done in the ER showed WBC 9.3, hemoglobin 13.2, platelets 366, coag studies are WNL, chloride 109, bicarb 21, glucose 103, lactic acid 1.5, calcium 10.9, ALP 133, troponin negative, stool occult blood positive. CT AP reveals small to moderate hiatal hernia, with slight predominant fluid- filled small bowel loops in the lower abdomen. Mild to moderate wall thickening throughout colon. Mild fat stranding in lower left quadrant may be present. No acute obstruction. Possible acute diverticulitis in lower left quadrant. Patient was admitted for further workup and management. GI consulted, started on Levaquin and Flagyl, C. diff and stool cultures ordered. 04/09 Patient was seen and examined. No more episodes of diarrhea. Reports some nausea but no vomiting. CBC and BMP significant for RBC 3.42, Hg 10.9, Hct 33.4, MCV 97.7, BUN 8.1, BUN/Cr 11.57. Diet advanced to low fiber diet today. General: non toxic, no distress, appears at stated age Derm: warm, dry Head: atraumatic, normocephalic, symmetric Eyes: EOMI, no lid lag, anicteric sclera Mouth: no lip lesion, mucus membranes moist Cardiovascular: S1S2 reg, no murmur Lungs: CTA bilateral, no rhonchi, no rales, no accessory muscle use Ext: no gross muscle atrophy, no edema, no contractures Neuro: no focal neuro deficits Psych: Alert, oriented, appropriate affect Based on my assessment of this patient, this patient meets a high complexity le gage of care. Lower GI bleed: Hg downtrending. Repeat CBC tomorrow. Transfuse if Hg < 7. GI on board. Acute colitis: Continue Levaquin 750 mg IV QD and Flagyl 500 mg IV TID. Zofran 4 mg IV Q8H PRN N/V. Stool Cx and C. diff pending. She has an appointment with a GI in [place] for C-scope/EGD in Nov (per patient. Hypertension: Lisinopril-HCTZ 20-12.5 mg PO QD. Depression: Remeron 7.5 mg PO QHS. Anxiety: Xanax increased to 0.5 mg PO BID PRN. GERD: Protonix 40 mg IV QD CODE STATUS: FULL CODE DVT Prophylaxis: SCD GI Prophylaxis: Protonix IV Designated medical POA if patient is not able to make medical decisions for themselves: I have reviewed the following category consultant notes: GI I have reviewed the results of the following tests: CBC, BMP I have ordered the following tests: CBC in the AM I have discussed the care of this patient with the following independent historian: I have independently interpreted the following test below: I have discussed the management of this patient with the following physician: Anticipate discharge home tomorrow if Hg remain stable and able to tolerate diet. Objective - Vital Signs Vital signs: Vital Signs Temp 98.5 F 04/09/24 07:56 Pulse 72 04/09/24 07:56 Resp 17 04/09/24 07:56 BP 137/71 04/09/24 07:56 Pulse Ox 95 04/09/24 07:56 FiO2 Intake & Output 04/08/24 04/09/24 04/09/24 18:59 06:59 18:59 Intake Total 720 Output Total 0 Balance 720 Intake: Oral 720 Output: Stool 0 Other: Voiding Method Toilet Toilet # Voids 2 2 2 # Bowel Movements 0 - Labs CBC & Chem 7: 04/09/24 04:38 04/09/24 04:38 Labs: Abnormal Lab Results - Last 24 Hours (Table) 04/09/24 04/09/24 Range/Units 04:38 04:38 RBC 3.42 L (4.10-5.20) X 10*6/uL Hgb 10.9 L (12.0-15.0) g/dL Hct 33.4 L (37.2-46.3) % MCV 97.7 H (80.0-97.0) FL BUN 8.1 L (9.0-27.0) mg/dL BUN/Creatinine Ratio 11.57 L (12.00-20.00) Ratio
--- NOTE | 2024-04-09 15:39 | P.PN ---
Subjective Progress Note Date: 04/09/24 Principal diagnosis: Diverticulitis This a pleasant 74-year-old female who presented to the emergency department yesterday evening with complaints of diarrhea with blood mixed in it. Her past medical history includes fibromyalgia, GI bleed, diverticulitis, IBS, hepatitis A, left breast cancer, cervical cancer, degenerative disc disease, history of alcohol and drug abuse, hyperlipidemia, hypertension, liver disease, and rheumatoid arthritis. Patient states she has chronic diarrhea usually goes 2-3 times a day has followed up with gastroenterology in the past. States yesterday from 3 PM she had 5 loose bowel movements with the last 1 having some bright red blood in it. Apparently she was given Lomotil when she came in by the emergency department. She has not had any further episodes of diarrhea or rectal bleeding. Denies any fevers or chills, no abdominal pain. States she has upcoming appointment with the pattern setter that amount Lr May 06 for continued diarrhea and incontinence of stool as well and has chronic nausea and vomiting.. Patient denies any anticoagulation, no regular NSAID use. States she has had previous GI bleed. Patient states she underwent EGD in January 2022 which was done at [facility]. States that there was significant for ulcers. Last EGD colonoscopy with report available 06/02/2019 that reported moderate antral gastritis, moderate sigmoid diverticulosis and polyps status post polypectomy. Admitting labs WBC 9.3 hemoglobin 13.2 platelet count 366,000 INR 0.9 sodium 141 potassium 4.3 BUN 17 creatinine 0.8 total bilirubin 0.3 AST 22 ALT 16 alkaline phosphatase 133 stool occult blood positive 04/09/2024 Patient seen and examined today as a follow-up. Patient states she is feeling better today. She has not had any further bowel movements and no rectal bleeding. Has some mild nausea but no vomiting. Asking to advance her diet. She has been afebrile. Objective - Vital Signs Vital signs: Vital Signs Temp 98.5 F 04/09/24 07:56 Pulse 72 04/09/24 07:56 Resp 17 04/09/24 07:56 BP 137/71 04/09/24 07:56 Pulse Ox 95 04/09/24 07:56 FiO2 Intake & Output 04/08/24 04/09/24 04/09/24 18:59 06:59 18:59 Intake Total 240 Balance 240 Intake: Oral 240 Other: Voiding Method Toilet # Voids 2 2 - Exam General appearance: The patient is alert, oriented, appears in no acute distress. HET: Head is normocephalic and atraumatic. Conjunctiva pink. Sclera anicteric. Neck: Supple without lymphadenopathy. Abdomen: Soft, nontender, nondistended with bowel sounds. No guarding or rigidity. Extremities: Normal skin color and turgor. No pedal edema Skin: No rashes, no jaundice Neurological: No focal deficits. Alert and oriented. - Labs CBC & Chem 7: 04/09/24 04:38 04/09/24 04:38 Labs: Abnormal Lab Results - Last 24 Hours (Table) 04/09/24 04/09/24 Range/Units 04:38 04:38 RBC 3.42 L (4.10-5.20) X 10*6/uL Hgb 10.9 L (12.0-15.0) g/dL Hct 33.4 L (37.2-46.3) % MCV 97.7 H (80.0-97.0) FL BUN 8.1 L (9.0-27.0) mg/dL BUN/Creatinine Ratio 11.57 L (12.00-20.00) Ratio Assessment and Plan (1) GI bleed Narrative/Plan: 74-year-old female with multiple comorbidities and longstanding history of GI problems including chronic nausea and vomiting as well as diarrhea previous history of reported gastric ulcer presenting with diarrhea mixed with blood. This patient states she has chronic diarrhea 2-3 episodes a day however yesterday had about 5 loose bowel movements from 3 PM on with the last to mix with bright red blood. No abdominal pain associated. Came in for further evaluation. Hemoglobin stable, stool occult blood positive. Likely dealing with infectiouscolitis/diverticulitis. Symptoms improving. Will get stool samples and continue to monitor. Current Visit: No Status: Acute Code(s): K92.2 - GASTROINTESTINAL HEMORRHAGE, UNSPECIFIED SNOMED Code(s): 01170286 (2) Hematochezia Current Visit: Yes Status: Acute Code(s): K92.1 - MELENA SNOMED Code(s): 244072567 (3) Diverticulitis Current Visit: Yes Status: Acute Code(s): K57.92 - DVTRCLI OF INTEST, PART UNSP, W/O PERF OR ABSCESS W/O BLEED SNOMED Code(s): 763896267 Plan: 1. Continue symptomatic and supportive care 2. Advance to low fiber diet 3. Discontinue Lomotil 4. Please collect C. difficile and stool cultures 5. Protonix 40 mg daily for GI prophylaxis 6. Daily CBC, transfuse for hemoglobin less than 7 7. Continue IV Flagyl and Levaquin 8. Anticipate discharge tomorrow. Recommend discharging on Augmentin for 7 days. Thank you for this consultation, we will continue to follow. Dr. Judi Tony I agree with the dictator's note, documented as a scribe by Dayan Fuller.
[2024-04-10 01:57] VITALS: TEMP 98.1
[2024-04-10 07:03] LABS: HCT 35.6 % (34.0-46.0); MCH 32.9 pg (25.0-35.0); MCHC 33.8 g/dL (31.0-37.0); MCV 97.3 fL (80.0-100.0); Mean Platelet Volume 7.8; Platelet Count 262 k/uL (150-450); RBC 3.66 m/uL (3.80-5.40); RDW 13.3 % (11.5-15.5); WBC 5.2 k/uL (3.8-10.6)
[2024-04-10 08:03] VITALS: BP 98/59; PULSE 73; RESP 18
--- NOTE | 2024-04-10 15:45 | P.DS ---
Providers Date of admission: 04/08/24 00:38 Expected date of discharge: 04/10/24 Attending physician: Rivas Pope MD Consults: 04/08/24 00:36 Consult Physician Urgent Consulting Provider: Annette Tony Consult Reason/Comments: acute hematochesia, acute colitis, acute diverticulitis Do you want consulting provider notified?: Yes Primary care physician: [facility] Course: 74-year-old female with past medical history of PUD, diverticulitis, GERD presents to the ER with acute GI bleed. Patient states she has 3-week history of ongoing diarrhea. Yesterday she states that she began to have sharp lower abdominal pain that was cramping, with nausea and diaphoresis. She also states at that time she had 2 episodes of bloody diarrhea which coated the toilet bowl. She continues to have constant pain in the lower abdomen that is dull in nature. Initial lab work done in the ER showed WBC 9.3, hemoglobin 13.2, platelets 366, coag studies are WNL, chloride 109, bicarb 21, glucose 103, lactic acid 1.5, calcium 10.9, ALP 133, troponin negative, stool occult blood positive. CT AP reveals small to moderate hiatal hernia, with slight predominant fluid- filled small bowel loops in the lower abdomen. Mild to moderate wall thickening throughout colon. Mild fat stranding in lower left quadrant may be present. No acute obstruction. Possible acute diverticulitis in lower left quadrant. Patient was admitted for further workup and management. GI consulted, started on Levaquin and Flagyl, C. diff and stool cultures ordered. 04/09 Patient was seen and examined. No more episodes of diarrhea. Reports some nausea but no vomiting. CBC and BMP significant for RBC 3.42, Hg 10.9, Hct 33.4, MCV 97.7, BUN 8.1, BUN/Cr 11.57. Diet advanced to low fiber diet today. 04/10 Patient was seen and examined. No diarrhea. Pain well controlled. CBC RBC 3.66. Plans for discharge home on Augmentin x 7 days per GI with outpatient followup with PCP within 1-[address] Tony within 1 week. General: non toxic, no distress, appears at stated age Derm: warm, dry Head: atraumatic, normocephalic, symmetric Eyes: EOMI, no lid lag, anicteric sclera Mouth: no lip lesion, mucus membranes moist Cardiovascular: S1S2 reg, no murmur Lungs: CTA bilateral, no rhonchi, no rales, no accessory muscle use Ext: no gross muscle atrophy, no edema, no contractures Neuro: no focal neuro deficits Psych: Alert, oriented, appropriate affect Discharge Diagnosis: Lower GI bleed Acute colitis Hypertension Depression Anxiety GERD This complex discharge took 35 minutes to complete. Patient Condition at Discharge: Stable Plan - Discharge Summary Discharge Rx Participant: Yes New Discharge Prescriptions: New Amoxic-Pot Clav 875-125Mg [Augmentin 875-125] 1 tab PO Q12HR 7 Days #14 tab Continue Lisinopril-Hctz 20-12.5 mg [Zestoretic 20-12.5] 1 tab PO DAILY Pantoprazole Sodium [Protonix] 40 mg PO BID #60 tab Meloxicam [Mobic] 7.5 mg PO DAILY PRN PRN Reason: Pain Sucralfate [Carafate] 1 gram PO ACHS PRN PRN Reason: Indigestion Mirtazapine 7.5 mg PO HS Discharge Medication List Lisinopril-Hctz 20-12.5 mg [Zestoretic 20-12.5] 1 tab PO DAILY 01/29/22 [History] Pantoprazole Sodium [Protonix] 40 mg PO BID #60 tab 04/10/22 [Rx] Meloxicam [Mobic] 7.5 mg PO DAILY PRN 04/08/24 [History] Mirtazapine 7.5 mg PO HS 04/08/24 [History] Sucralfate [Carafate] 1 gram PO ACHS PRN 04/08/24 [History] Amoxic-Pot Clav 875-125Mg [Augmentin 875-125] 1 tab PO Q12HR 7 Days #14 tab 04/10/24 [Rx] Follow up Appointment(s)/Referral(s): Jose M Abreu DO [Primary Care Provider] - 1-2 days Annette Tony MD [STAFF PHYSICIAN] - 1 Week Patient Instructions/Handouts: Colitis (ED) Activity/Diet/Wound Care/Special Instructions: Diet: Low fiber diet. Discharge Disposition: HOME SELF-CARE
--- NOTE | 2024-04-10 16:42 | P.PN ---
Subjective Progress Note Date: 04/10/24 Principal diagnosis: Diverticulitis This a pleasant 74-year-old female who presented to the emergency department yesterday evening with complaints of diarrhea with blood mixed in it. Her past medical history includes fibromyalgia, GI bleed, diverticulitis, IBS, hepatitis A, left breast cancer, cervical cancer, degenerative disc disease, history of alcohol and drug abuse, hyperlipidemia, hypertension, liver disease, and rheumatoid arthritis. Patient states she has chronic diarrhea usually goes 2-3 times a day has followed up with gastroenterology in the past. States yesterday from 3 PM she had 5 loose bowel movements with the last 1 having some bright red blood in it. Apparently she was given Lomotil when she came in by the emergency department. She has not had any further episodes of diarrhea or rectal bleeding. Denies any fevers or chills, no abdominal pain. States she has upcoming appointment with the ecologist that amount Lr May 06 for continued diarrhea and incontinence of stool as well and has chronic nausea and vomiting.. Patient denies any anticoagulation, no regular NSAID use. States she has had previous GI bleed. Patient states she underwent EGD in January 2022 which was done at [facility]. States that there was significant for ulcers. Last EGD colonoscopy with report available 06/02/2019 that reported moderate antral gastritis, moderate sigmoid diverticulosis and polyps status post polypectomy. Admitting labs WBC 9.3 hemoglobin 13.2 platelet count 366,000 INR 0.9 sodium 141 potassium 4.3 BUN 17 creatinine 0.8 total bilirubin 0.3 AST 22 ALT 16 alkaline phosphatase 133 stool occult blood positive 04/09/2024 Patient seen and examined today as a follow-up. Patient states she is feeling better today. She has not had any further bowel movements and no rectal bleeding. Has some mild nausea but no vomiting. Asking to advance her diet. She has been afebrile. 04/10/2024 Patient is seen and examined today as a follow-up. She has had no further diarrhea no blood per rectum. She was advanced to a low fiber diet having some nausea but no vomiting. Denies any abdominal pain. She has been afebrile. Objective - Vital Signs Vital signs: Vital Signs Temp 98.1 F 04/10/24 07:37 Pulse 73 04/10/24 07:37 Resp 18 04/10/24 07:37 BP 98/59 10/24/24 07:37 Pulse Ox 95 04/10/24 07:37 FiO2 Intake & Output 04/09/24 04/10/24 04/10/24 18:59 06:59 18:59 Intake Total 1428 Output Total 0 Balance 1428 Intake: Oral 1428 Output: Stool 0 Other: Voiding Method Toilet # Voids 2 2 # Bowel Movements 0 - Exam General appearance: The patient is alert, oriented, appears in no acute distress. HET: Head is normocephalic and atraumatic. Conjunctiva pink. Sclera anicteric. Neck: Supple without lymphadenopathy. Abdomen: Soft, nontender, nondistended with bowel sounds. No guarding or rigidity. Extremities: Normal skin color and turgor. No pedal edema Skin: No rashes, no jaundice Neurological: No focal deficits. Alert and oriented. - Labs CBC & Chem 7: 04/10/24 06:38 04/09/24 04:38 Labs: Abnormal Lab Results - Last 24 Hours (Table) 04/09/24 04/09/24 04/10/24 Range/Units 04:38 04:38 06:38 RBC 3.42 L 3.66 L (4.10-5.20) X 10*6/uL Hgb 10.9 L (12.0-15.0) g/dL Hct 33.4 L (37.2-46.3) % MCV 97.7 H (80.0-97.0) FL BUN 8.1 L (9.0-27.0) mg/dL BUN/Creatinine Ratio 11.57 L (12.00-20.00) Ratio Assessment and Plan (1) GI bleed Narrative/Plan: 74-year-old female with multiple comorbidities and longstanding history of GI problems including chronic nausea and vomiting as well as diarrhea previous history of reported gastric ulcer presenting with diarrhea mixed with blood. This patient states she has chronic diarrhea 2-3 episodes a day however y esterday had about 5 loose bowel movements from 3 PM on with the last to mix with bright red blood. No abdominal pain associated. Came in for further evaluation. Hemoglobin stable, stool occult blood positive. Likely dealing with infectiouscolitis/diverticulitis. Symptoms improving. Will get stool samples and continue to monitor. Status: Acute Code(s): K92.2 - GASTROINTESTINAL HEMORRHAGE, UNSPECIFIED SNOMED Code(s): 31615377 (2) Hematochezia Status: Acute Code(s): K92.1 - MELENA SNOMED Code(s): 953193033 (3) Diverticulitis Status: Acute Code(s): K57.92 - DVTRCLI OF INTEST, PART UNSP, W/O PERF OR ABSCESS W/O BLEED SNOMED Code(s): 753813575 Plan: 1. Continue symptomatic and supportive care 2. Antiemetics as needed 3. Low fiber diet, discussed with patient soft diet at home 4. Protonix 40 mg daily for GI prophylaxis 5. Recommend discharge on Augmentin 6. Patient is to follow-up with her ecologist as scheduled Dr. Dukes from [facility] Thank you for this consultation, patient is cleared from gastroenterology for discharge. Dr. Judi Tony I agree with the dictator's note, documented as a scribe by Dayan Fuller.
== END 2024-04-10 11:46 | disposition home or self-care (01) ==
LOC: EC 21:36 → 1SOBS 04-08 00:38 → 6NMEDSUR 04-08 05:46 → 1SOBS 04-08 05:53 → 6NMEDSUR 04-08 05:54
PROVIDERS: ADMIT Internal Medicine; ATTEND Internal Medicine
DX: K25.4 Chronic or unspecified gastric ulcer with hemorrhage (principal); K52.9 Noninfective gastroenteritis and colitis, unspecified; K44.9 Diaphragmatic hernia without obstruction or gangrene; K64.9 Unspecified hemorrhoids; K57.33 Diverticulitis of large intestine without perforation or abscess with bleeding; M06.9 Rheumatoid arthritis, unspecified; S22.089A Unspecified fracture of T11-T12 vertebra, initial encounter for closed fracture; K76.9 Liver disease, unspecified; K21.9 Gastro-esophageal reflux disease without esophagitis; E78.5 Hyperlipidemia, unspecified; I10 Essential (primary) hypertension; R11.2 Nausea with vomiting, unspecified; F32.A Depression, unspecified; F41.0 Panic disorder [episodic paroxysmal anxiety]; F43.10 Post-traumatic stress disorder, unspecified; F14.91 Cocaine use, unspecified, in remission; F10.21 Alcohol dependence, in remission; M79.7 Fibromyalgia; R61 Generalized hyperhidrosis; R15.9 Full incontinence of feces; Z79.1 Long term (current) use of non-steroidal anti-inflammatories (NSAID); Z79.899 Other long term (current) drug therapy; Z87.891 Personal history of nicotine dependence; Z85.41 Personal history of malignant neoplasm of cervix uteri; Z85.3 Personal history of malignant neoplasm of breast; Z86.19 Personal history of other infectious and parasitic diseases; Z88.2 Allergy status to sulfonamides; Z88.1 Allergy status to other antibiotic agents; Z88.8 Allergy status to other drugs, medicaments and biological substances; Z91.040 Latex allergy status; Z91.048 Other nonmedicinal substance allergy status
CPT/HCPCS: 96376 ×3; 96366 ×4; 96367; 96375 ×2; 96365; 99285; 36415; 86900; 86901; 80053; 80048; 83605; 84484; 85025 ×2; 85027; 85610; 85730; 86850; 82272; 74177; G0378 ×4; J2543; J2270 ×4; J2405 ×3; J1956 ×2; Q9967; J1836 ×3; J2470 ×3

== ENCOUNTER 2024-04-12 00:52 | Emergency (ER) | payer MEDICARE ==
[2024-04-12 01:17] VITALS: TEMP 97.7
[2024-04-12] MEDS: KETOROLAC 15 MG/ML 1 ML VIAL IM STA (03:08)
[2024-04-12] MEDS: FAMOTIDINE 20 MG TAB PO STA (03:08)
[2024-04-12] MEDS: tiZANidine 4 MG TAB PO STA (03:08)
[2024-04-12] MEDS: ONDANSETRON ODT 4 MG TAB PO STA (03:37)
[2024-04-12] MEDS: MORPHINE SULFATE 4 MG/ML SYRINGE IM STA (03:38)
[2024-04-12 05:27] VITALS: RESP 18
[2024-04-12] MEDS: SODIUM CHLORIDE 0.9% 1,000 ML IV ONE (05:42)
--- NOTE | 2024-04-12 05:42 | ED ---
General Adult HPI - General Chief complaint: Back Pain/Injury Stated complaint: Back Pain Time Seen by Provider: 04/12/24 00:55 Source: EMS Mode of arrival: EMS - History of Present Illness Initial comments: Patient presents today for left-sided back spasms. Has has history of similar. Denies any new injury to her back. States started this evening and she not cannot get comfortable. Denies IV drug use, history of cancer, saddle anesthesia, urinary incontinence or incontinence of stool/difficulty urinating. Denies fevers. Denies injections or recent procedures on her back. Denies abdominal pain, dysuria or hematuria. Denies nausea and vomiting. Denies chest pain or shortness of breath. Denies falls or trauma. Does have hx breast and CA currently in remission. - Related Data Home Medications Medication Instructions Recorded Confirmed Lisinopril-Hctz 20-12.5 mg 1 tab PO DAILY 01/29/22 04/08/24 [Zestoretic 20-12.5] Meloxicam [Mobic] 7.5 mg PO DAILY PRN 04/08/24 04/08/24 Mirtazapine 7.5 mg PO HS 04/08/24 04/08/24 Sucralfate [Carafate] 1 gram PO ACHS PRN 04/08/24 04/08/24 Previous Rx's Medication Instructions Recorded Pantoprazole Sodium [Protonix] 40 mg PO BID #60 tab 04/10/22 Amoxic-Pot Clav 875-125Mg 1 tab PO Q12HR 7 Days #14 tab 04/10/24 [Augmentin 875-125] Allergies Allergy/AdvReac Type Severity Reaction Status Date / Time Sulfa (Sulfonamide Allergy Severe Rash/Hives Verified 04/08/24 08:38 Antibiotics) Tetracyclines Allergy Severe Rash/Hives Verified 04/08/24 08:38 latex Allergy Rash/Hives Verified 04/08/24 08:38 lorazepam [From Ativan] AdvReac Confusion Verified 04/08/24 08:38 TIDE AND EXTRA LAUNDRY SOAP Allergy Rash/Hives Uncoded 04/08/24 08:38 Review of Systems ROS Statement: Those systems with pertinent positive or pertinent negative responses have been documented in the HPI. ROS Other: All systems not noted in ROS Statement are negative. Past Medical History Past Medical History: Cancer, Fibromyalgia, GERD/Reflux, GI Bleed, Hyperlipidemia, Hypertension, Liver Disease, Osteoarthritis (OA), Rheumatoid Arthritis (RA), Syncope Additional Past Medical History / Comment(s): Past lower GI bleed, diverticulitis, colitis, IBS, gastric ulcer, hepatitis A, L breast cancer with surgeries/chemo and radiation, cervical cancer with surgery, bronchitis, osteoporosis, neuropathy bilateral feet and hands, chronic pain, past L humeral fracture, T11 spinal injury, chronic cervical and lumbar back pain, migraines, osteoarthritis and rheumatoid arthritis in multiple joints. past drug and etoh abuse- per ptclear for 26 years. History of Any Multi-Drug Resistant Organisms: None Reported Past Surgical History: Section, Hysterectomy, Joint Replacement, Orthopedic Surgery, Tonsillectomy Additional Past Surgical History / Comment(s): ORIF L humerus with carlos/screws since removed, total L shoulder arthroplasty, cervical and lumbar fusions, pain clinic procedures, D&C, bilateral breast reductions with nonhealing wound and had closure/skin grafting, L breast lumpectomies and then L breast mastectomy, R tympanoplasty, EGDs, colonoscopies, ivy fundoplasty, loop recorder. pain pump in left lower abd. Past Anesthesia/Blood Transfusion Reactions: No Reported Reaction Additional Past Anesthesia/Blood Transfusion Reaction / Comment(s): Pt received blood this admission without reaction. Past Psychological History: Anxiety, Depression, Panic Disorder, PTSD Smoking Status: Former smoker Past Alcohol Use History: None Reported Past Drug Use History: None Reported - Past Family History Mother Family Medical History: Myocardial Infarction ([place]) Additional Family Medical History / Comment(s): . General Exam - General Exam Comments Initial Comments: PE: CONSTITUTIONAL: No apparent distress, well appearing though uncomfortable SKIN: Warm, dry, no jaundice, hives or petechiae, no overlying skin changes or erythema on back EYES: Pupils are equally round, extraocular movements intact without nystagmus, clear conjunctiva, non-icteric sclera HENT: Normocephalic, atraumatic, moist mucus membranes, oropharynx clear without exudates NECK: , Full range of motion, normal appearance PULMONARY: Clear to auscultation without wheezes, rhonchi, or rales, normal excursion, no accessory muscle use and no stridor CARDIOVASCULAR: Regular rate, rhythm, normal S1 and S2. No appreciated murmurs, rubs or gallops. Strong radial pulses with intact distal perfusion. No lower extremity edema GASTROINTESTINAL: Soft, active bowel sounds throughout, non-tender, non- distended, no palpable masses, no rebound or guarding. No hepatosplenomegaly MUSCULOSKELETAL: Spasms with palpation of left low back. No midline spinal tenderness to palpation, 2+ dorsalis pedis pulses in lower extremities bilaterally extremities have no gross deformity, no edema, redness, or swelling. No calf swelling NEUROLOGIC:_a/o x 3, GCS 15, normal mentation and speech. Moves all extremities x 4 without motor or sensory deficit PSYCHIATRIC:_normal mood and affect, thought process is clear and linear Course Vital Signs 04/12/24 04/12/24 04/12/24 01:13 03:41 05:26 Temperature 97.7 F Pulse Rate 61 60 63 Respiratory 18 15 18 Rate Blood Pressure 100/66 124/80 82/52 O2 Sat by Pulse 97 95 95 Oximetry 04/12/24 06:43 Temperature Pulse Rate 76 Respiratory 18 Rate Blood Pressure 112/69 O2 Sat by Pulse 97 Oximetry Medical Decision Making - Medical Decision Making Was pt. sent in by a medical professional or institution (, PA, DIRECTOR OF ESTATE, urgent care, hospital, or care home...) When possible be specific @ -No Did you speak to anyone other than the patient for history (EMS, parent, family, police, friend...)? What history was obtained from this source @ -No Did you review nursing and triage notes (agree or disagree)? Why? @ -I reviewed and agree with nursing and triage notes Were old charts reviewed (outside hosp., previous admission, EMS record, old EKG, old radiological studies, urgent care reports/EKG's, care home records)? Report findings @Medical records reviewed- Patient recently admitted to the hospital on 04/07/2024 and discharged on 04/11/2024, was admitted for GI bleed and colitis Differential Diagnosis (chest pain, altered mental status, abdominal pain women, abdominal pain men, vaginal bleeding, weakness, fever, dyspnea, syncope, headache, dizziness, GI bleed, back pain, seizure, CVA, palpatations, mental health, musculoskeletal)? @ -Differential Back Pain: Considered, strain, zoster, cauda equina syndrome, epidural abscess, vertebral osteomyelitis, discitis, fracture, subluxation, disc herniation, DJD, spinal stenosis, dissection, AAA, pyelonephritis, kidney stone, this is not meant to be an all-inclusive list. Patient has no midline spinal TTP, no overlying skin changes, no saddle anesthesia, no fevers, no urinary incontinence or difficulty urinating or passing stool, no black or bloody stools, no chest pain or difficulty in breathing, no recent spinal injections, no hematuria. For these reasons I have a very low suspicion for infectious or intraabdominal pathology and do not feel further imaging or labs indicated at this point. EKG interpreted by me (3pts min.). @ -As above X-rays interpreted by me (1pt min.). @ -None done CT interpreted by me (1pt min.). @ -None done U/S interpreted by me (1pt. min.). @ -None done What testing was considered but not performed or refused? (CT, X-rays, U/S, labs)? Why? @ -None What meds were considered but not given or refused? Why? @ -None Did you discuss the management of the patient with other professionals (professionals i.e. , PA, DIRECTOR OF ESTATE, lab, RT, psych nurse, social service technician, annual giving officer, teacher, public service officer, case management associate)? Give summary @ -No Was smoking cessation discussed for >3mins.? @ -No Was critical care preformed (if so, how long)? @ -No Were there social determinants of health that impacted care today? How? (Homelessness, low income, unemployed, alcoholism, drug addiction, transportation, low edu. Level, literacy, decrease access to med. care, [facility], rehab)? @ -No Was there de-escalation of care discussed even if they declined (Discuss DNR or withdrawal of care, Hospice)? @ -No What co-morbidities impacted this encounter? (DM, HTN, Smoking, COPD, CAD, Cance r, CVA, ARF, Chemo, Hep., AIDS, mental health diagnosis, sleep apnea, morbid obesity)? @ -None Was patient admitted / discharged? Hospital course, mention meds given and route, prescriptions, significant lab abnormalities, going to OR and other pertinent info. @ -Hospital course discharged- Patient is a pleasant 74-year-old female presenting today for exacerbation of muscle spasms in her back. Recent admission for diverticulitis. Of note patient denies any abdominal pain, black or bloody stools. On my assessment patient is well-appearing but uncomfortable. Physical exam significant for m uscle spasms palpable in left lower back. No midline spinal tenderness with patient, 2+ DP pulses in the bilateral lower extremities. As patient has had history of similar issues, has no red flag symptoms and palpable back spasms on exam will administer Zanaflex and Toradol. Patient agreeable plan of care. On reassessment patient states pain does not improve Zanaflex and Toradol. We will try IM morphine and Zofran. Endorsed resolution of pain with morphine ministration. She did request during the emergency department for a brief period of observation as she felt drowsy after administration morphine. On recheck patient's blood pressure MAP of 61. Patient states that her pain has resolved and she denies any additional symptoms. I suspect hypotension secondary to the morphine + tizanidine administration. Will give 1 L IV fluids and reassess. Additionally, I was informed by RN that patient receive 4 mg zanaflex as opposed to 2 mg. This is likely contributing to patient's hypotens ion. Patient agreeable with plan or fluids. On reassessment to ambulate through ER without difficulty or symptoms. Blood pressure improved. Discussed plan for discharge. Patient is comfortable plan. She does state muscle spasms are returning and is agreeable to trying lidocaine patch prior to discharge. In my medical judgment there is currently no evidence of an immediate life-threatening or surgical condition. Discharge is therefore indicated at this time. Discharge treatment instructions, follow up instructions, and appropriate emergency department return precautions were discussed with the patient and/or medical decision maker. Patient and/or medical decision maker expressed understanding of and agreed with the treatment plan, follow up instructions, and emergency department return precaution. All patient's and/or medical decision maker's questions were answered. The patient was advised that a small risk still exists that a serious condition could develop and was therefore instructed to return to the ED for any changes in symptoms, persistent symptoms, inability to obtain proper follow-up or for any further concerns. Patient received verbal and written instructions for this condition. Undiagnosed new problem with uncertain prognosis? @ -No Drug Therapy requiring intensive monitoring for toxicity (Heparin, Nitro, Insulin, Cardizem)? @ -No Were any procedures done? @ -No Diagnosis/symptom? @ -Muscle spasms low back pain Acute, or Chronic, or Acute on Chronic? @ -Acute Uncomplicated (without systemic symptoms) or Complicated (systemic symptoms)? @ -Uncomplicated Side effects of treatment? @ -No Exacerbation, Progression, or Severe Exacerbation? @Exacerbation Poses a threat to life or bodily function? How? (Chest pain, [place], [place], pneumonia, PE, COPD, DKA, ARF, appy, cholecystitis, CVA, Diverticulitis, Homicidal, Suicidal, threat to staff... and all critical care pts) @ -No Disposition Clinical Impression: Muscle spasm of back Disposition: HOME SELF-CARE Condition: Good Instructions (If sedation given, give patient instructions): Acute Low Back Pain (ED) Additional Instructions: Every disease is a spectrum and a small chance still exists that a serious condition could develop, for this reason, please monitor yourself closely for new, changing or worsening symptoms, symptoms that persist beyond 48 hours, fever, inability to tolerate/keep down fluids or your medications, inability to follow up with outpatient providers as instructed and should you experience these symptoms or should you have any further concerns for your wellbeing please return to the ED or call 911 immediately. Return to the emergency department if you develop constipation, urinary retention, loss of bowel or bladder function, numbness or tingling into the rectum, groin, or develop fevers and chills. Your pain can be treated with ibuprofen and acetaminophen. You can take up to 400-600 mg of ibuprofen (Advil, Motrin) 3 times daily (every 8 hours) but can also use lower doses if this relieves your pain. Some people prefer naproxen (Aleve, Naprosyn) which can be taken in doses of 500 mg up to twice a day. Do not take both of these medicines together, and do not combine either with ketorolac (Toradol), meloxicam (Mobic), or indomethacin (Tivorbex). Some people can develop stomach discomfort with higher doses of either ibuprofen or naproxen, if this develops decrease your dose or stop taking it. If you need to take this dose daily for more than a week, please schedule an appointment for re-evaluation with your PCP. Please take these medications with food. You can take up to 1000 mg of acetaminophen (Tylenol) every 6 hours. Be careful as this is included in some medicines like Nyquil, [place], Percocet, Vicodin, STANBACK, Goody's Powders, and Excedrin. You can also use lidocaine patches for topical pain. You can purchase 4% patches over the counter at most drug stores. These can be helpful for pain from your muscles or bones. PLEASE call your primary care physician as soon as possible to arrange / discuss plan for followup appointment. Appointment in the next 1-3 days is strongly encouraged if possible. PLEASE let us know here before you leave if there is anything further we can do to be of any assistance. Take care and feel Better! Is patient prescribed a controlled substance at d/c from ED?: No Referrals: Jose M Abreu, [Primary Care Provider] - 1-2 days
[2024-04-12 06:45] VITALS: BP 112/69; PULSE 76
[2024-04-12] MEDS: LIDOCAINE 4% PATCH TOPICAL ONE (07:07)
== END 2024-04-12 07:07 | disposition home or self-care (01) ==
LOC: EC 00:52
CPT/HCPCS: 96360; 96372; 99284

== ENCOUNTER → 2024-04-16 | Outpatient (CLI) | payer MEDICARE ==
--- NOTE | 2024-04-16 14:20 | BD ---
EXAMINATION TYPE: Axial Bone Density DATE OF EXAM: 04/16/2024 CLINICAL HISTORY: 74 years old Female. ICD-10 CODE: M81.0 OSTEOPOROSIS , Z78.0 Height: 61.2 Weight: 139 FRAX RISK QUESTIONS: Family History (Parent hip fracture): yes History of Fracture in Adulthood: yes Secondary Osteoporosis: 3. Menopause before 45: at 47 Rheumatoid Arthritis: yes, RISK FACTORS HISTORY OF: hx of left wrist fx, hx of both feet broken, shoulder, humeral head, with total replacement, tibial plateau fx rt knee, RA, fibromyalgia, History of Wrist Fracture: left wrist fx, Surgery to Spine lower lumbar fusion...2009, 2012 cervical fusion, and cemented thoracic MEDICATIONS: pain meds, magnesium, bp meds, vit d and calcium, hx of breast cancer, hx of radiation, hx of thyroid meds, in the past, EXAM MEASUREMENTS: Bone mineral densitometry was performed using the [email or web address] System. Bone mineral density about the R hip (g/cm2): 0.675 Bone mineral density about the L hip (g/cm2): 0.657 T Score values are as follows: -----R Neck: -3.2 -----L Neck: -3.2 -----R Total: -2.6 -----L Total: -2.8 Z Score values are as follows: -----R Neck: -1.4 -----L Neck: -1.4 -----R Total: -1.0 -----L Total: -1.2 Bone mineral density has: Decreased -11.1nce study of: 01.28.2015 Bone mineral density about the R Wrist (g/cm2): 0.438 T Score values are as follows: -----Dist. R+U: -2.8 -----Prox. R+U: -3.5 -----Radius total: -3.7 Z Score values are as follows: -----Dist. R+U: -0.8 -----Prox. R+U: -1.5 -----Radius total: -1.6 Bone mineral density is the first time her forearm has been scanned for bone density study. FRAX%s: The graph provided illustrates a 52.2hance for a major osteoporotic fx and a 32.7hance for th e hips probability for fx in 10 years time. IMPRESSION: Osteoporosis (T Score less than -2.5). There is increased fracture risk and therapy is usually indicated based on age. Re-Screen 1-2 years. NOTE: T-SCORE=SD OF THE YOUNG ADULT MEAN. [facility], , 04/16/2024 2:18 PM
--- NOTE | 2024-04-17 09:31 | MM ---
Reason for Exam: Hx of breast cancer, mastectomy. Last mammogram was performed 9 year(s) and 2 month(s) ago. Patient History: Menarche at age 16. First Full-Term at age 33. Late child-bearing (after 32). Left ovary removed at age 59. Right ovary removed at age 59. Hysterectomy at age 59. Postmenopausal. Breast cancer, age 53. Other cancer. Previous chest radiation therapy at age 54. Hormonal Contraceptives, from age 20 until age 52. Mastectomy on the Left side. 2003, Bilateral Reduction. 2003, Lumpectomy on the Left side. 2000, Benign Lumpectomy on the left side. 01/02/2014, Benign Cyst Aspiration on the left side. 01/02/2014, Benign Core Biopsy on the left side. 01/02/2014, Benign Core Biopsy on the right side. 2003, Radiation Therapy on the left side. Prior Study Comparison: No prior studies available for comparison. Tissue Density: Right: There are scattered areas of fibroglandular density. Findings: Multiple areas of asymmetric density, particularly in the subareolar region as well as the lateral aspect middle depth. As no priors are available for comparison purposes, further evaluation is recommended. A few scattered 9 punctate calcifications and a single secretory calcification are benign. Overall Assessment: Incomplete: need additional imaging evaluation, BI-RAD 0 Management: Special View Mammogram of the right breast. Diagnostic Breast Ultrasound of the right breast. . [facility] will attempt to contact patient to return for supplemental views and ultrasound if indicated. [facility], , 04/17/2024 9:28 AM. Electronically signed and approved by: Prisca Tom M.D. Radiologist
== END | disposition home or self-care (01) ==
LOC: RADMAMWWP 07:53
PROVIDERS: ATTEND Internal Medicine
DX: Z12.31 Encounter for screening mammogram for malignant neoplasm of breast (principal); R92.323 Mammographic fibroglandular density, bilateral breasts; M81.0 Age-related osteoporosis without current pathological fracture; Z78.0 Asymptomatic menopausal state; Z90.722 Acquired absence of ovaries, bilateral; Z92.3 Personal history of irradiation; Z85.3 Personal history of malignant neoplasm of breast
CPT/HCPCS: 77067; 77080

== ENCOUNTER → 2024-04-16 | Outpatient (CLI) | payer MEDICARE ==
[2024-04-16 16:07] LABS: Basophils # (A) 0.04 X 10*3/uL (0.00-0.10); Basophils % (A) 0.6 %; Eosinophils # (A) 0.18 X 10*3/uL (0.04-0.35); Eosinophils % (A) 2.6 %; HCT 41.9 % (37.2-46.3); HGB 13.1 g/dL (12.0-15.0); Lymphocytes # (A) 2.73 X 10*3/uL (0.90-5.00); MCH 30.6 pg (27.0-32.0); MCHC 31.3 g/dL (32.0-37.0); MCV 97.9 FL (80.0-97.0); Mean Platelet Volume 10.2 FL (9.5-12.2); Monocytes # (A) 0.51 X 10*3/uL (0.20-1.00); Monocytes % (A) 7.5 %; NRBC Per 100 WBC 0 X 10*3/uL (0.00-0.01); Neutrophils # (A) 3.33 X 10*3/uL (1.80-7.70); Neutrophils % (A) 48.7 %; Platelet Count 249 X 10*3/uL (140-440); RBC 4.28 X 10*6/uL (4.10-5.20); RDW 13.1 % (11.5-14.5); WBC 6.83 X 10*3/uL (4.50-10.00)
[2024-04-16 16:48] LABS: ALT 20 U/L (8-44); AST 22 U/L (13-35); Albumin 4.3 g/dL (3.8-4.9); Albumin/Globulin Ratio 1.65 Ratio (1.60-3.17); Alkaline Phosphatase 138 U/L (41-126); BUN/Creat Ratio 39.14 Ratio (12.00-20.00); Blood Urea Nitrogen 27.4 mg/dL (9.0-27.0); Calcium 10.7 mg/dL (8.7-10.3); Carbon Dioxide 24.3 mmol/L (21.6-31.8); Chloride 106 mmol/L (96-109); Ferritin 37.3 ng/mL (10.0-291.0); Globulin 2.6 g/dL (1.6-3.3); Glucose 98 mg/dL (70-110); Iron 72 UG/DL (50-170); Potassium 4.6 mmol/L (3.5-5.5); Sodium 142 mmol/L (135-145); Total Bilirubin <0.2 mg/dL (0.3-1.2); Total Iron Binding Capacity 379 UG/DL (228-460); Total Protein 6.9 g/dL (6.2-8.2)
== END | disposition home or self-care (01) ==
LOC: LABWHC1 08:56
PROVIDERS: ATTEND Internal Medicine
CPT/HCPCS: 36415; 80053; 80061; 82306; 82607; 82728; 82746; 83540; 83550; 84439; 84443; 85025

== ENCOUNTER → 2024-04-23 | Outpatient (CLI) | payer MEDICARE ==
--- NOTE | 2024-04-23 11:45 | MM ---
Reason for Exam: Additional evaluation requested from abnormal screening. Last screening mammogram was performed less than 1 month ago. Patient History: Menarche at age 16. First Full-Term at age 33. Late child-bearing (after 32). Left ovary removed at age 59. Right ovary removed at age 59. Hysterectomy at age 59. Postmenopausal. Breast cancer, left, age 53. Other cancer. Previous chest radiation therapy at age 54. Hormonal Contraceptives, from age 20 until age 52. Mastectomy on the Left side. 2003, Bilateral Reduction. 2003, Lumpectomy on the Left side. 2000, Benign Lumpectomy on the left side. 01/02/2014, Benign Cyst Aspiration on the left side. 01/02/2014, Benign Core Biopsy on the left side. 01/02/2014, Benign Core Biopsy on the right side. 2003, Radiation Therapy on the left side. Prior Study Comparison: 03/03/2011 Screening Mammogram, [facility]. 10/16/2013 Bilateral Diagnostic Mammogram, [facility]. 01/02/2014 Left Diagnostic Ultrasound, [facility]. 01/02/2014 Left Diagnostic Mammogram, [facility]. 07/10/2014 Right Diagnostic Mammogram, [facility]. 07/10/2014 Left Diagnostic Ultrasound, [facility]. 01/28/2015 Bilateral Diagnostic Mammogram, [facility]. 01/04/2016 Left Diagnostic Ultrasound, [facility]. 04/16/2024 Right MG 3D scr reena unilateral w/cad., [facility]. Tissue Density: Right: The breasts are heterogeneously dense, which may obscure small masses. Findings: Analyzed By CAD. The pattern is stable. There is a nodular density upper outer quadrant measuring approximately 0.5 cm 8 cm nipple. Complex cystic area appears to correlate the ultrasound of this area. Impression this area appears persistent. Increased density within the subareolar right breast partially disperses without suspicious spiculated or lobulated . No suspicious discrete subareolar breast ultrasound finding evident. No suspicious groups of microcalcifications, spiculated or lobular masses, architectural distortion or other secondary signs of malignancy are mammographically apparent. Overall Assessment: Incomplete: need additional imaging evaluation, BI-RAD 0 Management: Diagnostic Breast Ultrasound of the right breast. A negative mammogram report should not preclude additional follow up of suspicious palpable abnormalities. Patient should continue monthly self breast exam. A clinical breast exam by your physician is recommended on an annual basis and results should be correlated with mammographic findings. Note on Humaira scores and lifetime risk: 1. A Humaira score greater than 3% is considered moderate risk. If this is the case, consider specialist referral to assess eligibility for a risk reducing agent. 2. If overall lifetime risk for the development of breast cancer is 20% or higher, the patient may qualify for future screening with alternating mammogram and breast MRI. [facility], , 04/23/2024 11:24 AM. Electronically signed and approved by: Conor Julio D.O. Radiologis
--- NOTE | 2024-04-23 11:45 | USB ---
Patient History: Menarche at age 16. First Full-Term at age 33. Late child-bearing (after 32). Left ovary removed at age 59. Right ovary removed at age 59. Hysterectomy at age 59. Postmenopausal. Breast cancer, left, age 53. Other cancer. Previous chest radiation therapy at age 54. Hormonal Contraceptives, from age 20 until age 52. Mastectomy on the Left side. 2003, Bilateral Reduction. 2003, Lumpectomy on the Left side. 2000, Benign Lumpectomy on the left side. 01/02/2014, Benign Cyst Aspiration on the left side. 01/02/2014, Benign Core Biopsy on the left side. 01/02/2014, Benign Core Biopsy on the right side. 2003, Radiation Therapy on the left side. Technique: Method: Targeted. Doppler: Color. Patient Position: LPO. Prior Study Comparison: 07/10/2014 Right Diagnostic Mammogram, [facility]. 01/28/2015 Bilateral Diagnostic Mammogram, [facility]. 04/16/2024 Right MG 3D scr reena unilateral w/cad., [facility]. Findings: The lateral section of the breast of the right breast, the axilla of the right breast and the retroareolar of the right breast were scanned. No discrete suspicious ultrasound abnormality in the subareolar breast. Subcentimeter cyst may be in the subareolar breast. At the 9:00 position 5 cm nipple there is a cyst with a septation or 2 adjacent cysts. Posterior wall enhancement. Complex cyst appears to be present and may correlate with mammographic findings. Overall Assessment: Probably benign, BI-RAD 3 Management: Diagnostic Mammogram of the right breast in 6 months. Diagnostic Breast Ultrasound of the right breast in 6 months. A clinical breast exam by your physician is recommended on an annual basis and results should be correlated with mammographic findings. This exam should not preclude additional follow-up of suspicious palpable abnormalities. Results were given to the patient verbally at the time of exam. [facility], , 04/23/2024 11:25 AM. Electronically signed and approved by: Conor Julio D.O. Radiologis
== END | disposition home or self-care (01) ==
LOC: RADMAMWWP 10:05
PROVIDERS: ATTEND Internal Medicine
DX: R92.8 Other abnormal and inconclusive findings on diagnostic imaging of breast (principal); Z78.0 Asymptomatic menopausal state; Z85.3 Personal history of malignant neoplasm of breast; R92.331 Mammographic heterogeneous density, right breast
CPT/HCPCS: 77065; 76642; G0279; 77061

== ENCOUNTER → 2024-04-23 | Outpatient (CLI) | payer MEDICARE ==
[2024-04-23 12:46] LABS: Basophils % (A) 0 %; Eosinophils # (A) 0.1 k/uL (0-0.7); Eosinophils % (A) 2 %; HCT 39.3 % (34.0-46.0); HGB 12.9 gm/dL (11.4-16.0); Lymphocytes # (A) 1.7 k/uL (1.0-4.8); Lymphocytes % (A) 24 %; MCH 31.2 pg (25.0-35.0); MCHC 32.9 g/dL (31.0-37.0); Mean Platelet Volume 8.6; Monocytes # (A) 0.3 k/uL (0-1.0); Monocytes % (A) 4 %; Neutrophils # (A) 4.7 k/uL (1.3-7.7); Neutrophils % (A) 67 %; Platelet Count 228 k/uL (150-450); RBC 4.14 m/uL (3.80-5.40); RDW 13.2 % (11.5-15.5)
[2024-04-23 12:49] LABS: Ionized Calcium 5.5 mg/dL (4.5-5.3)
[2024-04-23 13:40] LABS: RBC Morphology Normal
[2024-04-23 15:12] LABS: Protein, Total 6.9 g/dL (6.2-8.2); Total Protein 6.9 g/dL (6.2-8.2)
[2024-04-23 15:16] LABS: Hepatitis A Antibody IgM Nonreactive (Nonreactive); Hepatitis B Core IgM Nonreactive (Nonreactive); Hepatitis B Surface Antigen Nonreactive (Nonreactive); Hepatitis C IgG Antibody Nonreactive (Nonreactive)
[2024-04-23 15:29] LABS: ALT 11 U/L (8-44); AST 18 U/L (13-35); Albumin 4.3 g/dL (3.8-4.9); Albumin/Globulin Ratio 1.65 Ratio (1.60-3.17); Alkaline Phosphatase 140 U/L (41-126); BUN/Creat Ratio 33.43 Ratio (12.00-20.00); Blood Urea Nitrogen 23.4 mg/dL (9.0-27.0); Calcium 10.7 mg/dL (8.7-10.3); Carbon Dioxide 22.4 mmol/L (21.6-31.8); Chloride 106 mmol/L (96-109); Globulin 2.6 g/dL (1.6-3.3); Glucose 104 mg/dL (70-110); Potassium 4.5 mmol/L (3.5-5.5); Sodium 141 mmol/L (135-145); Total Bilirubin <0.2 mg/dL (0.3-1.2)
== END | disposition home or self-care (01) ==
LOC: LABWHC1 11:37
PROVIDERS: ATTEND Internal Medicine
DX: E83.52 Hypercalcemia (principal); R74.8 Abnormal levels of other serum enzymes
CPT/HCPCS: 36415; 80053; 80074; 82330; 82652; 83516; 83970; 84165; 85025; 86038; 86334

== ENCOUNTER → 2024-06-10 | Outpatient (CLI) | payer MEDICARE ==
[2024-06-10 09:25] LABS: Ionized Calcium 5.8 mg/dL (4.5-5.3)
[2024-06-10 15:55] LABS: Carbon Dioxide 20.6 mmol/L (21.6-31.8); Chloride 105 mmol/L (96-109); Glucose 100 mg/dL (70-110); Potassium 4.4 mmol/L (3.5-5.5); Sodium 140 mmol/L (135-145); T4, Free (Free Thyroxine) 1.14 ng/dL (0.80-1.80)
== END | disposition home or self-care (01) ==
LOC: LABWHC1 08:27
PROVIDERS: ATTEND Internal Medicine
DX: E03.8 Other specified hypothyroidism (principal); E21.3 Hyperparathyroidism, unspecified
CPT/HCPCS: 36415; 80048; 82330; 83970; 84439; 84443

== ENCOUNTER → 2024-06-10 | Outpatient (CLI) | payer MEDICARE ==
--- NOTE | 2024-06-10 12:07 | NM ---
EXAMINATION TYPE: NM parathyroid w/spect DATE OF EXAM: 06/10/2024 COMPARISON: None CLINICAL INDICATION: Female, 74 years old with history of E21.3 HYPERPARATHYROIDISM; TECHNIQUE: Following administration of 25 mCi Tc99m Sestamibi. Anterior projection images of the neck and chest were obtained 10 minutes and 3 hours post injection. SPECT images of the neck and chest were obtaine d and reconstructed in three axes. FINDINGS: Thyroid tracer washout: Delayed images demonstrate near-complete tracer washout from the thyroid. Parathyroid uptake: None. The two-hour delayed images do not demonstrate any focal abnormal persisten t uptake in the region of the parathyroid glands to suggest parathyroid adenoma. Normal uptake: There is physiological tracer uptake in the myocardium, liver, salivary glands, and th yroid gland. IMPRESSION: Normal parathyroid imaging study. No evidence for mediastinal uptake to suggest mediastinal parathyro id adenoma [facility], , 06/10/2024 12:05 PM
== END | disposition home or self-care (01) ==
LOC: RADNMMAIN 07:32
PROVIDERS: ATTEND Internal Medicine
DX: E21.3 Hyperparathyroidism, unspecified (principal)
CPT/HCPCS: 78071; A9500

== ENCOUNTER → 2024-06-26 | Outpatient (CLI) | payer MEDICARE ==
--- NOTE | 2024-06-26 12:27 | XR ---
EXAMINATION TYPE: XR chest 2V DATE OF EXAM: 06/26/2024 12:03 PM COMPARISON: Chest x-ray December 17, 2023 CLINICAL INDICATION: Female, 74 years old with history of M06.9 RA M79.7 FIBRO R20.0 PARE K57.90 DIVE R K27.9, TECHNIQUE: Frontal and lateral views of the chest are obtained. FINDINGS: There is no focal air space opacity, pleural effusion, or pneumothorax seen. The cardiac silhouette size is stable and mildly enlarged. Overlying loop recorder is present. There is vertebrop lasty in the lumbar spine. Surgical change in the left shoulder and cervical spine is partially image d. IMPRESSION: Mild cardiomegaly without acute pulmonary process. [facility], , 06/26/2024 12:24 PM
--- NOTE | 2024-06-26 13:41 | XR ---
EXAMINATION TYPE: XR hand complete bilateral DATE OF EXAM: 06/26/2024 12:03 PM COMPARISON: None. CLINICAL INDICATION: Female, 74 years old with history of M06.9 RA M79.7 FIBRO R20.0 PARE K57.90 DIVE R K27.9, pain TECHNIQUE: Frontal, lateral and oblique images of bilateral hands are obtained. FINDINGS: Osseous structures are demineralized. Valgus positioning is present bilaterally. There is m oderate to severe narrowing of the joint spaces of the fingers and at the base of the thumb. Mild-to- moderate multilevel spurring is present bilaterally. Overlying soft tissues are unremarkable. IMPRESSION: As above. [facility], , 06/26/2024 1:38 PM
--- NOTE | 2024-06-26 13:45 | XR ---
EXAMINATION TYPE: XR foot complete bilateral DATE OF EXAM: 06/26/2024 12:03 PM COMPARISON: None. CLINICAL INDICATION: Female, 74 years old with history of M06.9 RA M79.7 FIBRO R20.0 PARE K57.90 DIVE R K27.9, pain TECHNIQUE: Frontal, lateral, and oblique images of feet bilaterally the are obtained. FINDINGS: Osseous structures are demineralized. There is no acute fracture/dislocation evident in ei ther foot. Flexion in the toes is seen bilaterally. Overlying soft tissue is unremarkable bilaterally . IMPRESSION: As above. [facility], , 06/26/2024 1:42 PM
== END | disposition home or self-care (01) ==
LOC: RADXRMAIN 10:52
PROVIDERS: ATTEND Internal Medicine Rheumatology
DX: M06.9 Rheumatoid arthritis, unspecified (principal); M79.7 Fibromyalgia; R20.0 Anesthesia of skin; K57.90 Diverticulosis of intestine, part unspecified, without perforation or abscess without bleeding; K27.9 Peptic ulcer, site unspecified, unspecified as acute or chronic, without hemorrhage or perforation; I51.7 Cardiomegaly
CPT/HCPCS: 71046

== ENCOUNTER → 2024-06-26 | Outpatient (CLI) | payer MEDICARE ==
[2024-06-26 15:15] LABS: C Reactive Protein 1.1 mg/dL (0.00-0.80)
[2024-06-26 15:46] LABS: Hepatitis B Core IgM Nonreactive (Nonreactive); Hepatitis B Surface Antigen Nonreactive (Nonreactive); Hepatitis C IgG Antibody Nonreactive (Nonreactive)
[2024-06-26 17:58] LABS: Cyclic Citrull Pep IgG Unit <1.5 U/mL (<=3.9); Cyclic Citrullinated Pep IgG Negative
[2024-06-26 19:44] LABS: Hepatitis B Surface AB- Quant >1000.0 mIU/mL
[2024-06-26 22:31] LABS: Hepatitis B Surface Antibody Positive (Negative)
== END | disposition home or self-care (01) ==
LOC: LABWHC1 09:56
PROVIDERS: ATTEND Internal Medicine Rheumatology
DX: M06.9 Rheumatoid arthritis, unspecified (principal); M79.7 Fibromyalgia; K57.90 Diverticulosis of intestine, part unspecified, without perforation or abscess without bleeding; K27.9 Peptic ulcer, site unspecified, unspecified as acute or chronic, without hemorrhage or perforation; R20.2 Paresthesia of skin
CPT/HCPCS: 36415; 82550; 83520; 85652; 86038; 86140; 86200; 86431; 86480; 86704; 86705; 86706; 86803; 87340

== ENCOUNTER 2024-10-12 15:55 | Emergency (ER) | payer MEDICARE ==
[2024-10-12] MEDS: HYDROcodone/APAP 7.5-325MG 1 EACH TAB PO ONE (17:06)
[2024-10-12] MEDS: KETOROLAC 15 MG/ML 1 ML VIAL IM STA ×2 (17:07→22:06)
[2024-10-12] MEDS: GABAPENTIN 300 MG CAP PO STA ×2 (17:07→22:05)
--- NOTE | 2024-10-12 17:12 | ED ---
Anxiety HPI - General Chief Complaint: Anxiety Stated Complaint: Pain Time Seen by Provider: 10/12/24 16:15 Source: patient, RN notes reviewed Mode of arrival: EMS - History of Present Illness Initial Comments: 74-year-old female presenting for depression. States she lives alone and over the past several months has progressively given up on herself. States she thinks about suicide sometimes but knows she cannot do it and does not have a way to do it. She feels like she is a burden to her sister and her niece. She states she "just does not care anymore". States she is having an acute flareup of her chronic neuropathy pain in her bilateral arms and legs because she has not refilled her medications in months. No new medical complaints today. - Related Data Home Medications: Home Medications Medication Instructions Recorded Confirmed Lisinopril-Hctz 20-12.5 mg 1 tab PO DAILY 01/29/22 10/12/24 [Zestoretic 20-12.5] Pantoprazole Sodium [Protonix] 40 mg PO DAILY 10/12/24 10/12/24 Allergies/Adverse Reactions: Allergies Allergy/AdvReac Type Severity Reaction Status Date / Time Sulfa (Sulfonamide Allergy Severe Rash/Hives Verified 10/12/24 19:44 Antibiotics) Tetracyclines Allergy Severe Rash/Hives Verified 10/12/24 19:44 latex Allergy Rash/Hives Verified 10/12/24 19:44 lorazepam [From Ativan] AdvReac Confusion Verified 10/12/24 19:44 TIDE AND EXTRA LAUNDRY SOAP Allergy Rash/Hives Uncoded 10/12/24 19:44 Review of Systems ROS Statement: Those systems with pertinent positive or pertinent negative responses have been documented in the HPI. ROS Other: All systems not noted in ROS Statement are negative. Past Medical History Past Medical History: Cancer, Fibromyalgia, GERD/Reflux, GI Bleed, Hyperlipidemia, Hypertension, Liver Disease, Osteoarthritis (OA), Rheumatoid Arthritis (RA), Syncope Additional Past Medical History / Comment(s): Past lower GI bleed, diverticulitis, colitis, IBS, gastric ulcer, hepatitis A, L breast cancer with surgeries/chemo and radiation, cervical cancer with surgery, bronchitis, osteoporosis, neuropathy bilateral feet and hands, chronic pain, past L humeral fracture, T11 spinal injury, chronic cervical and lumbar back pain, migraines, osteoarthritis and rheumatoid arthritis in multiple joints. past drug and etoh abuse- per ptclear for 26 years. History of Any Multi-Drug Resistant Organisms: None Reported Past Surgical History: Section, Hysterectomy, Joint Replacement, Orthopedic Surgery, Tonsillectomy Additional Past Surgical History / Comment(s): ORIF L humerus with carlos/screws since removed, total L shoulder arthroplasty, cervical and lumbar fusions, pain clinic procedures, D&C, bilateral breast reductions with nonhealing wound and had closure/skin grafting, L breast lumpectomies and then L breast mastectomy, R tympanoplasty, EGDs, colonoscopies, ivy fundoplasty, loop recorder. pain pump in left lower abd. Past Anesthesia/Blood Transfusion Reactions: No Reported Reaction Additional Past Anesthesia/Blood Transfusion Reaction / Comment(s): Pt received blood this admission without reaction. Past Psychological History: Anxiety, Depression, Panic Disorder, PTSD Smoking Status: Former smoker Past Alcohol Use History: None Reported Past Drug Use History: None Reported - Past Family History Mother Family Medical History: Myocardial Infarction (MS) Additional Family Medical History / Comment(s): . General Exam Limitations: no limitations General appearance: alert, in no apparent distress, other (Very tearful on examination) Head exam: Present: atraumatic, normocephalic, normal inspection Respiratory exam: Present: normal lung sounds bilaterally. Absent: respiratory distress, wheezes, rales, rhonchi, stridor Cardiovascular Exam: Present: regular rate, normal rhythm, normal heart sounds. Absent: systolic murmur, diastolic murmur, rubs, gallop, clicks GI/Abdominal exam: Present: soft, normal bowel sounds. Absent: distended, tenderness, guarding, rebound, rigid Extremities exam: Present: normal inspection, full ROM, normal capillary refill. Absent: tenderness, pedal edema, joint swelling, calf tenderness Neurological exam: Present: alert, oriented X3 Psychiatric exam: Present: normal affect, depressed, suicidal ideation, other (Tearful on exam). Absent: homicidal ideation Skin exam: Present: warm, dry, intact, normal color. Absent: rash Course Vital Signs 10/12/24 10/12/24 10/12/24 16:10 19:24 20:55 Temperature 98.4 F 97.6 F Pulse Rate 116 H 74 60 Respiratory 20 18 19 Rate Blood Pressure 164/90 161/100 125/75 O2 Sat by Pulse 98 98 96 Oximetry Medical Decision Making - Medical Decision Making Was pt. sent in by a medical professional or institution (, COY, PROFESSOR OF KINESIOLOGY, urgent care, hospital, or fci...) When possible be specific @ -No Did you speak to anyone other than the patient for history (EMS, parent, family, police, friend...)? What history was obtained from this source @ -No Did you review nursing and triage notes (agree or disagree)? Why? @ -I reviewed and agree with nursing and triage notes Were old charts reviewed (outside hosp., previous admission, EMS record, old EKG, old radiological studies, urgent care reports/EKG's, fci records)? Report findings @ -No old charts were reviewed Differential Diagnosis (chest pain, altered mental status, abdominal pain women, abdominal pain men, vaginal bleeding, weakness, fever, dyspnea, syncope, headache, dizziness, GI bleed, back pain, seizure, CVA, palpatations, mental health, musculoskeletal)? @ -Differential Mental Health Depression, anxiety, bipolar, psychosis, schizophrenia, borderline personality, situational depression, adjustment disorder, behavioral disorder, brain tumor, malingering, substance abuse, encephalopathy, medication reaction, dementia, hypothyroidism, degenerative neurologic disorder, lupus.... This is not meant to be all-inclusive list EKG interpreted by me (3pts min.). @ -None X-rays interpreted by me (1pt min.). @ -None done CT interpreted by me (1pt min.). @ -None done U/S interpreted by me (1pt. min.). @ -None done What testing was considered but not performed or refused? (CT, X-rays, U/S, labs)? Why? @ -None What meds were considered but not given or refused? Why? @ -None Did you discuss the management of the patient with other professionals (professionals i.e. , COY, PROFESSOR OF KINESIOLOGY, lab, RT, psych nurse, social media marketing analyst, leather tacker, teacher, real estate loan officer, case assembler)? Give summary @ -I spoke with Angy from [facility] who states patient does meet inpatient admission criteria as she is having passive suicidal ideation and lives alone Was smoking cessation discussed for >3mins.? @ -No Was critical care preformed (if so, how long)? @ -No Were there social determinants of health that impacted care today? How? (Homelessness, low income, unemployed, alcoholism, drug addiction, transportation, low edu. Level, literacy, decrease access to med. care, residential, rehab)? @ -No Was there de-escalation of care discussed even if they declined (Discuss DNR or withdrawal of care, Hospice)? DNR status @ -No What co-morbidities impacted this encounter? (DM, HTN, Smoking, COPD, CAD, Cancer, CVA, ARF, Chemo, Hep., AIDS, mental health diagnosis, sleep apnea, morbid obesity)? @ -None Was patient admitted / discharged? Hospital course, mention meds given and route, prescriptions, significant lab abnormalities, going to OR and other pertinent info. @ - transfer. 74-year-old female presenting for depression. Patient states she is having thoughts of suicide but knows she cannot do it. She is also having a flareup of her chronic neuropathy as she is not refilled her prescriptions in months. No acute medical complaints at this time. Patient is provided with analgesics for neuropathy and is medically cleared to be seen by [facility]. I spoke with Angy from [facility] who states patient does meet inpatient admission criteria as she is having passive suicidal ideation and lives alone. I agree with this plan. Patient will be a geriatric psychiatric transfer. Routine psych transfer labs ordered. Case was discussed with my ED attending Dr. Bey. Undiagnosed new problem with uncertain prognosis? @ -No Drug Therapy requiring intensive monitoring for toxicity (Heparin, Nitro, Insulin, Cardizem)? @ -No Were any procedures done? @ -No Diagnosis/symptom? @ -Suicidal ideation Acute, or Chronic, or Acute on Chronic? @ -Acute Uncomplicated (without systemic symptoms) or Complicated (systemic symptoms)? @ -Complicated Side effects of treatment? @ -No Exacerbation, Progression, or Severe Exacerbation? @ -No Poses a threat to life or bodily function? How? (Chest pain, USA, MS, pneumonia, PE, COPD, DKA, ARF, appy, cholecystitis, CVA, Diverticulitis, Homicidal, Suicidal, threat to staff... and all critical care pts) @ -Yes - Lab Data Result diagrams: 10/12/24 21:15 10/12/24 21:15 Lab Results 10/12/24 10/12/24 10/12/24 Range/Units 19:24 21:15 21:15 WBC 8.03 (4.50-10.00) 10*3/uL RBC 4.49 (4.10-5.20) 10*6/uL Hgb 13.9 (12.0-15.0) g/dL Hct 40.0 (37.2-46.3) % MCV 89.1 (80.0-97.0) fL MCH 31.0 (27.0-32.0) pg MCHC 34.8 (32.0-37.0) g/dL Plt Count 292 (140-440) 10*3/uL MPV 10.2 (9.5-12.2) fL Immature Gran % (Auto) 0.2 % Neutrophils % 46.2 % Lymphocytes % 44.1 % Monocytes % 7.7 % Eosinophils % 1.4 % Basophils % 0.4 % Immature Gran # 0.02 (0.00-0.04) 10*3/uL Neutrophils # 3.71 (1.80-7.70) 10*3/uL Lymphocytes # 3.54 (0.90-5.00) 10*3/uL Monocytes # 0.62 (0.20-1.00) 10*3/uL Eosinophils # 0.11 (0.04-0.35) 10*3/uL Basophils # 0.03 (0.00-0.10) 10*3/uL Sodium 138 (137-145) mmol/L Potassium 3.5 (3.5-5.1) mmol/L Chloride 104 (98-107) mmol/L Carbon Dioxide 21 L (22-30) mmol/L Anion Gap 13 mmol/L BUN 19 H (7-17) mg/dL Creatinine 0.96 (0.52-1.04) mg/dL Est GFR (CKD-EPI)AfAm 68 (>60 ml/min/1.73 sqM) Est GFR (CKD-EPI)NonAf 59 (>60 ml/min/1.73 sqM) Glucose 102 H (74-99) mg/dL Calcium 11.7 H (8.4-10.2) mg/dL Total Bilirubin 0.4 (0.2-1.3) mg/dL AST 15 (14-36) U/L ALT 9 (4-34) U/L Alkaline Phosphatase 101 (38-126) U/L Total Protein 7.1 (6.3-8.2) g/dL Albumin 4.4 (3.5-5.0) g/dL Urine Opiates Screen Detected H (NotDetected) Ur Oxycodone Screen Not Detected (NotDetected) Urine Methadone Screen Not Detected (NotDetected) Ur Barbiturates Screen Not Detected (NotDetected) U Tricyclic Antidepress Not Detected (NotDetected) Ur Phencyclidine Scrn Not Detected (NotDetected) Ur Amphetamines Screen Not Detected (NotDetected) U Methamphetamines Scrn Not Detected (NotDetected) U Benzodiazepines Scrn Not Detected (NotDetected) Urine Cocaine Screen Not Detected (NotDetected) U Marijuana (THC) Screen Not Detected (NotDetected) Influenza Type A (PCR) (Not Detectd) Influenza Type B (PCR) (Not Detectd) RSV (PCR) (Not Detectd) SARS-CoV-2 (PCR) (Not Detectd) 10/12/24 Range/Units 21:15 WBC (4.50-10.00) 10*3/uL RBC (4.10-5.20) 10*6/uL Hgb (12.0-15.0) g/dL Hct (37.2-46.3) % MCV (80.0-97.0) fL MCH (27.0-32.0) pg MCHC (32.0-37.0) g/dL Plt Count (140-440) 10*3/uL MPV (9.5-12.2) fL Immature Gran % (Auto) % Neutrophils % % Lymphocytes % % Monocytes % % Eosinophils % % Basophils % % Immature Gran # (0.00-0.04) 10*3/uL Neutrophils # (1.80-7.70) 10*3/uL Lymphocytes # (0.90-5.00) 10*3/uL Monocytes # (0.20-1.00) 10*3/uL Eosinophils # (0.04-0.35) 10*3/uL Basophils # (0.00-0.10) 10*3/uL Sodium (137-145) mmol/L Potassium (3.5-5.1) mmol/L Chloride (98-107) mmol/L Carbon Dioxide (22-30) mmol/L Anion Gap mmol/L BUN (7-17) mg/dL Creatinine (0.52-1.04) mg/dL Est GFR (CKD-EPI)AfAm (>60 ml/min/1.73 sqM) Est GFR (CKD-EPI)NonAf (>60 ml/min/1.73 sqM) Glucose (74-99) mg/dL Calcium (8.4-10.2) mg/dL Total Bilirubin (0.2-1.3) mg/dL AST (14-36) U/L ALT (4-34) U/L Alkaline Phosphatase (38-126) U/L Total Protein (6.3-8.2) g/dL Albumin (3.5-5.0) g/dL Urine Opiates Screen (NotDetected) Ur Oxycodone Screen (NotDetected) Urine Methadone Screen (NotDetected) Ur Barbiturates Screen (NotDetected) U Tricyclic Antidepress (NotDetected) Ur Phencyclidine Scrn (NotDetected) Ur Amphetamines Screen (NotDetected) U Methamphetamines Scrn (NotDetected) U Benzodiazepines Scrn (NotDetected) Urine Cocaine Screen (NotDetected) U Marijuana (THC) Screen (NotDetected) Influenza Type A (PCR) Not Detected (Not Detectd) Influenza Type B (PCR) Not Detected (Not Detectd) RSV (PCR) Not Detected (Not Detectd) SARS-CoV-2 (PCR) Not Detected (Not Detectd) Disposition Clinical Impression: Suicidal ideation Disposition: TRANSFER TO PSYCH HOSP/UNIT Instructions (If sedation given, give patient instructions): Generalized Anxiety Disorder (ED) Referrals: Jose M Abreu DO [Primary Care Provider] - 1-2 days Time of Disposition: 01:24
[2024-10-12 20:01] LABS: Amphetamine Screen,Urine Not Detected (NotDetected); Barbiturate Screen,Urine Not Detected (NotDetected); Benzodiazepines Screen,Urine Not Detected (NotDetected); Cocaine Screen,Urine Not Detected (NotDetected); Methadone Screen, Urine Not Detected (NotDetected); Opiate Screen,Urine Detected (NotDetected); Oxycodone Screen, Urine Not Detected (NotDetected); Phencyclidine Screen,Urine Not Detected (NotDetected); Tricyclic Antidepressant,Urine Not Detected (NotDetected); Urn Cannabinoid Scrn Not Detected (NotDetected)
[2024-10-12 21:53] LABS: Basophils # (A) 0.03 10*3/uL (0.00-0.10); Basophils % (A) 0.4 %; Eosinophils # (A) 0.11 10*3/uL (0.04-0.35); Eosinophils % (A) 1.4 %; HGB 13.9 g/dL (12.0-15.0); Lymphocytes # (A) 3.54 10*3/uL (0.90-5.00); Lymphocytes % (A) 44.1 %; MCHC 34.8 g/dL (32.0-37.0); MCV 89.1 fL (80.0-97.0); Mean Platelet Volume 10.2 fL (9.5-12.2); Monocytes # (A) 0.62 10*3/uL (0.20-1.00); Monocytes % (A) 7.7 %; Neutrophils # (A) 3.71 10*3/uL (1.80-7.70); Neutrophils % (A) 46.2 %; Platelet Count 292 10*3/uL (140-440); RBC 4.49 10*6/uL (4.10-5.20); RDW 13.1 % (11.5-14.5); WBC 8.03 10*3/uL (4.50-10.00)
[2024-10-12 22:05] LABS: ALT 9 U/L (4-34); AST 15 U/L (14-36); African American GFR (CKD) 68 (>60 ml/min/1.73 sqM); Albumin 4.4 g/dL (3.5-5.0); Alkaline Phosphatase 101 U/L (38-126); Anion Gap 13 mmol/L; Blood Urea Nitrogen 19 mg/dL (7-17); Calcium 11.7 mg/dL (8.4-10.2); Carbon Dioxide 21 mmol/L (22-30); Chloride 104 mmol/L (98-107); Glucose 102 mg/dL (74-99); Non-African American GFR(CKD) 59 (>60 ml/min/1.73 sqM); Potassium 3.5 mmol/L (3.5-5.1); Sodium 138 mmol/L (137-145); Total Bilirubin 0.4 mg/dL (0.2-1.3); Total Protein 7.1 g/dL (6.3-8.2)
[2024-10-12 22:15] LABS: Influenza A Not Detected (Not Detectd); Influenza B Not Detected (Not Detectd); RSV Not Detected (Not Detectd)
[2024-10-12] MEDS: KETOROLAC 15 MG/ML 1 ML VIAL IVP STA (22:22)
[2024-10-12] MEDS ORDERED: ACETAMINOPHEN TAB 325 MG TAB PO PRN (22:51)
[2024-10-13] MEDS: HYDROcodone/APAP 5-325MG 1 EACH TAB PO PRN (00:08)
[2024-10-13 01:47] LABS: Appearance,Urine Clear (Clear); Bilirubin,Urine Negative (Negative); Blood,Urine Negative (Negative); Color,Urine Light Yellow; Glucose,Urine (UA) Negative (Negative); Hyaline Casts,Urine 7 /lpf (0-2); Ketones,Urine Negative (Negative); Leukocyte Esterase,Urine Trace (Negative); Mucus,Urine Rare /hpf; Nitrite,Urine Negative (Negative); PH, Urine 5.5 (5.0-8.0); Protein,Urine Negative (Negative); RBC,Urine <1 /hpf (0-5); Specific Gravity,Urine 1.022 (1.001-1.035); Squamous Epithelial Cell,Urine 1 /hpf (0-4); Urobilinogen,Urine <2.0 mg/dL (<2.0); WBC,Urine 3 /hpf (0-5)
[2024-10-13 08:43] LABS: Chol/HDL Ratio 3.67 Ratio; LDL Cholesterol,Calculated 128.1 mg/dL (0.0-131.0)
[2024-10-13 09:30] VITALS: TEMP 98
[2024-10-13 10:53] VITALS: BP 128/68; PULSE 78; RESP 16
== END 2024-10-13 11:06 ==
LOC: EC 15:55
DX: G89.29 Other chronic pain (principal); R45.851 Suicidal ideations; G62.9 Polyneuropathy, unspecified; Z88.1 Allergy status to other antibiotic agents; Z87.891 Personal history of nicotine dependence; Z88.2 Allergy status to sulfonamides; Z88.8 Allergy status to other drugs, medicaments and biological substances; Z91.048 Other nonmedicinal substance allergy status; Z91.040 Latex allergy status; Z11.52 Encounter for screening for COVID-19
CPT/HCPCS: 99285 ×2; 96372 ×3; 82075; 36415; 80061; 80053; 85025; 81001; 80306; 83036; 87636; J1885

== ENCOUNTER → 2024-12-05 | Outpatient (CLI) | payer MEDICARE ==
--- NOTE | 2024-12-05 12:23 | USB ---
Reason for Exam: Follow-up at short interval from prior study. Patient History: Menarche at age 16. First Full-Term at age 33. Late child-bearing (after 32). Left ovary removed at age 59. Right ovary removed at age 59. Hysterectomy at age 59. Postmenopausal. Breast cancer, left, age 53. Other cancer. Previous chest radiation therapy at age 54. Hormonal Contraceptives, from age 20 until age 52. Mastectomy on the Left side. 2003, Bilateral Reduction. 2003, Lumpectomy on the Left side. 2000, Benign Lumpectomy on the left side. 01/02/2014, Benign Cyst Aspiration on the left side. 01/02/2014, Benign Core Biopsy on the left side. 01/02/2014, Benign Core Biopsy on the right side. 2003, Radiation Therapy on the left side. Technique: Method: Targeted. Prior Study Comparison: 01/28/2015 Bilateral Diagnostic Mammogram, [facility]. 04/16/2024 Right MG 3D scr reena unilateral w/cad., [facility]. 04/23/2024 Right MG 3D work up w/cad RT, [facility]. Findings: The lateral section of the breast of the right breast, the axilla of the right breast and the retroareolar of the right breast were scanned. Targeted ultrasound lateral aspect from 8:00 to 10:00 including scanning of the subareolar region and axilla. At the 9:00 position, 8 cm from the nipple, 2 adjacent cysts versus bilocular cyst measures 8 x 5 x 4 mm. This is relatively similar in size previously measuring 7 x 6 x 5 mm. Ongoing short interval follow-up can be performed to exclude abnormal complex cyst. At the 10:00 position, 8 cm from the nipple, there is a tiny benign 4 mm cyst. The previously seen shadowing areas of breast tissue are no longer identified. No other solid or cystic lesion or axillary adenopathy. Overall Assessment: Probably benign, BI-RAD 3 Management: Diagnostic Mammogram of the right breast in 6 months. Diagnostic Breast Ultrasound of the right breast in 6 months. A clinical breast exam by your physician is recommended on an annual basis and results should be correlated with mammographic findings. This exam should not preclude additional follow-up of suspicious palpable abnormalities. Results were given to the patient verbally at the time of exam. [facility], , 12/05/2024 12:16 PM. Electronically signed and approved by: Prisca Tom M.D. Radiologist
--- NOTE | 2024-12-08 11:09 | MM ---
Reason for Exam: Follow-up at short interval from prior study. Last screening mammogram was performed 7 month(s) ago. Patient History: Menarche at age 16. First Full-Term at age 33. Late child-bearing (after 32). Left ovary removed at age 59. Right ovary removed at age 59. Hysterectomy at age 59. Postmenopausal. Breast cancer, left, age 53. Other cancer. Previous chest radiation therapy at age 54. Hormonal Contraceptives, from age 20 until age 52. Mastectomy on the Left side. 2003, Bilateral Reduction. 2003, Lumpectomy on the Left side. 2000, Benign Lumpectomy on the left side. 01/02/2014, Benign Cyst Aspiration on the left side. 01/02/2014, Benign Core Biopsy on the left side. 01/02/2014, Benign Core Biopsy on the right side. 2003, Radiation Therapy on the left side. Prior Study Comparison: 01/28/2015 Bilateral Diagnostic Mammogram, [facility]. 04/16/2024 Right MG 3D scr reena unilateral w/cad., [facility]. 04/23/2024 Right MG 3D work up w/cad RT, [facility]. Tissue Density: Right: There are scattered areas of fibroglandular density. Findings: Analyzed By CAD. Lateral nodularity, lateral asymmetric densities, anterior depth asymmetric density remains relatively unchanged over the course of 8 months. Microclip right breast relates to prior biopsy. Overall Assessment: Incomplete: need additional imaging evaluation, BI-RAD 0 Management: Diagnostic Breast Ultrasound of the right breast. [facility], , 12/05/2024 12:36 PM. Electronically signed and approved by: Prisca Tom M.D. Radiologist
== END | disposition home or self-care (01) ==
LOC: RADMAMWWP 11:11
PROVIDERS: ATTEND Internal Medicine
DX: R92.8 Other abnormal and inconclusive findings on diagnostic imaging of breast (principal); R92.321 Mammographic fibroglandular density, right breast; Z92.0 Personal history of contraception; Z85.3 Personal history of malignant neoplasm of breast
CPT/HCPCS: 77065; 76642; G0279; 77061

== ENCOUNTER 2024-12-15 16:38 | Inpatient (IN) | payer MEDICARE ==
--- NOTE | 2024-12-15 17:12 | ED ---
General Adult HPI - General Chief complaint: Weakness Stated complaint: Weakness,Diarrhea Time Seen by Provider: 12/15/24 16:47 Source: patient, EMS, RN notes reviewed Mode of arrival: EMS Limitations: no limitations - History of Present Illness Initial comments: Patient is a 74-year-old presenting to the emergency department with complaint of weakness. Onset of symptoms was just a couple hours ago. Patient has had several low episodes of diarrhea, now mixed with blood. Patient feels weak all over. Patient found on the floor. Patient states she does have a history of this once previously associated with a GI bleed however does not know more i nformation than that. No vomiting. Patient has had some mild abdominal cramping. - Related Data Home Medications Medication Instructions Recorded Confirmed Lisinopril-Hctz 20-12.5 mg 1 tab PO DAILY 01/29/22 10/12/24 [Zestoretic 20-12.5] Pantoprazole Sodium [Protonix] 40 mg PO DAILY 10/12/24 10/12/24 Allergies Allergy/AdvReac Type Severity Reaction Status Date / Time Sulfa (Sulfonamide Allergy Severe Rash/Hives Verified 10/12/24 19:44 Antibiotics) Tetracyclines Allergy Severe Rash/Hives Verified 10/12/24 19:44 latex Allergy Rash/Hives Verified 10/12/24 19:44 lorazepam [From Ativan] AdvReac Confusion Verified 10/12/24 19:44 TIDE AND EXTRA LAUNDRY SOAP Allergy Rash/Hives Uncoded 10/12/24 19:44 Review of Systems ROS Statement: Those systems with pertinent positive or pertinent negative responses have been documented in the HPI. ROS Other: All systems not noted in ROS Statement are negative. Constitutional: Denies: fever Eyes: Denies: eye pain ENT: Denies: ear pain Respiratory: Denies: cough Cardiovascular: Denies: chest pain Endocrine: Reports: fatigue Gastrointestinal: Reports: as per HPI, hematochezia Past Medical History Past Medical History: Cancer, Fibromyalgia, GERD/Reflux, GI Bleed, Hyperlipidemia, Hypertension, Liver Disease, Osteoarthritis (OA), Rheumatoid Arthritis (RA), Syncope Additional Past Medical History / Comment(s): Past lower GI bleed, diverticulitis, colitis, IBS, gastric ulcer, hepatitis A, L breast cancer with surgeries/chemo and radiation, cervical cancer with surgery, bronchitis, osteoporosis, neuropathy bilateral feet and hands, chronic pain, past L humeral fracture, T11 spinal injury, chronic cervical and lumbar back pain, migraines, osteoarthritis and rheumatoid arthritis in multiple joints. past drug and etoh abuse- per ptclear for 26 years. History of Any Multi-Drug Resistant Organisms: None Reported Past Surgical History: Section, Hysterectomy, Joint Replacement, Orthopedic Surgery, Tonsillectomy Additional Past Surgical History / Comment(s): ORIF L humerus with carlos/screws since removed, total L shoulder arthroplasty, cervical and lumbar fusions, pain clinic procedures, D&C, bilateral breast reductions with nonhealing wound and had closure/skin grafting, L breast lumpectomies and then L breast mastectomy, R tympanoplasty, EGDs, colonoscopies, ivy fundoplasty, loop recorder. pain pump in left lower abd. Past Anesthesia/Blood Transfusion Reactions: No Reported Reaction Additional Past Anesthesia/Blood Transfusion Reaction / Comment(s): Pt received blood this admission without reaction. Past Psychological History: Anxiety, Depression, Panic Disorder, PTSD Smoking Status: Former smoker Past Alcohol Use History: None Reported Past Drug Use History: None Reported - Past Family History Mother Family Medical History: Myocardial Infarction ([place]) Additional Family Medical History / Comment(s): . General Exam Limitations: no limitations General appearance: alert, in no apparent distress Head exam: Present: normocephalic Eye exam: Present: normal appearance Neck exam: Present: normal inspection Respiratory exam: Present: normal lung sounds bilaterally Cardiovascular Exam: Present: tachycardia GI/Abdominal exam: Present: soft, tenderness (Mild tenderness left side of abdomen) Rectal exam: Present: bloody stool Extremities exam: Present: normal inspection Neurological exam: Present: alert Psychiatric exam: Present: normal affect, normal mood Skin exam: Present: normal color Course Vital Signs 12/15/24 12/15/24 12/15/24 16:40 16:49 17:10 Temperature 97.4 F L Pulse Rate 110 H 99 98 Respiratory 18 18 18 Rate Blood Pressure 85/74 88/71 62/46 O2 Sat by Pulse 94 L 91 L 100 Oximetry 12/15/24 12/15/24 12/15/24 17:15 17:18 17:20 Temperature Pulse Rate 96 88 85 Respiratory 18 18 11 L Rate Blood Pressure 78/43 90/38 90/38 O2 Sat by Pulse 96 99 100 Oximetry 0612/15/24 12/15/24 17:25 17:30 17:35 Temperature Pulse Rate 85 90 82 Respiratory 17 16 15 Rate Blood Pressure 85/59 118/100 104/60 O2 Sat by Pulse 100 99 100 Oximetry 12/15/24 12/15/24 12/15/24 17:40 17:45 17:50 Temperature Pulse Rate 82 82 89 Respiratory 18 15 16 Rate Blood Pressure 105/48 104/58 105/68 O2 Sat by Pulse 100 100 100 Oximetry 12/15/24 12/15/24 17:55 17:59 Temperature Pulse Rate 86 90 Respiratory 16 18 Rate Blood Pressure 97/60 92/63 O2 Sat by Pulse 100 98 Oximetry Medical Decision Making - Medical Decision Making Was pt. sent in by a medical professional or institution (Dr. PA, NFL PLAYER, urgent care, hospital, or senior care...) When possible be specific @ -No Did you speak to anyone other than the patient for history (EMS, parent, family, police, friend...)? What history was obtained from this source @ -No Did you review nursing and triage notes (agree or disagree)? Why? @ -I reviewed and agree with nursing and triage notes Were old charts reviewed (outside hosp., previous admission, EMS record, old EKG, old radiological studies, urgent care reports/EKG's, senior care records)? Report findings @ -No old charts were reviewed Differential Diagnosis (chest pain, altered mental status, abdominal pain women, abdominal pain men, vaginal bleeding, weakness, fever, dyspnea, syncope, headache, dizziness, GI bleed, back pain, seizure, CVA, palpatations, mental health, musculoskeletal)? @ -Differential GI Bleed: Esophageal varices, aortoenteric fistula, Jerica-Morales, gastritis, peptic ulcer disease, diverticulosis, inflammatory bowel disease, hemorrhoids, fissure, colitis, malignancy, Meckel's diverticulum, this is not meant to be an all- inclusive list. EKG interpreted by me (3pts min.). @ -As above X-rays interpreted by me (1pt min.). @ -None done CT interpreted by me (1pt min.). @ -None done U/S interpreted by me (1pt. min.). @ -None done What testing was considered but not performed or refused? (CT, X-rays, U/S, labs)? Why? @ -CT scan ordered for further evaluation however patient has not gone yet seco ndary to nausea What meds were considered but not given or refused? Why? @ -None Did you discuss the management of the patient with other professionals (professionals i.e. , PA, NFL PLAYER, lab, RT, psych nurse, licensed clinical social worker, cyber security consultant, teacher, state patrol officer, outpatient case manager)? Give summary @ -No Was smoking cessation discussed for >3mins.? @ -No Was critical care preformed (if so, how long)? @ -No Were there social determinants of health that impacted care today? How? (Homelessness, low income, unemployed, alcoholism, drug addiction, transportation, low edu. Level, literacy, decrease access to med. care, prison, rehab)? @ -No Was there de-escalation of care discussed even if they declined (Discuss DNR or withdrawal of care, Hospice)? DNR status @ -No What co-morbidities impacted this encounter? (DM, HTN, Smoking, COPD, CAD, Cancer, CVA, ARF, Chemo, Hep., AIDS, mental health diagnosis, sleep apnea, morbid obesity)? @ -History of GI bleed once previously Was patient admitted / discharged? Hospital course, mention meds given and route, prescriptions, significant lab abnormalities, going to OR and other pertinent info. @ -Patient presents with weakness and lower GI bleed. Hemoglobin is stable. Blood pressure has stabilized. Patient will be admitted with GI consult. Patient reevaluated and updated. Admission orders written. Undiagnosed new problem with uncertain prognosis? @ -No Drug Therapy requiring intensive monitoring for toxicity (Heparin, Nitro, Insulin, Cardizem)? @ -No Were any procedures done? @ -No Diagnosis/symptom? @ -Lower GI hemorrhage Acute, or Chronic, or Acute on Chronic? @ -Acute Uncomplicated (without systemic symptoms) or Complicated (systemic symptoms)? @ -Default Side effects of treatment? @ -No Exacerbation, Progression, or Severe Exacerbation? @ -No Poses a threat to life or bodily function? How? (Chest pain, [place], [place], pneumonia, PE, COPD, DKA, ARF, appy, cholecystitis, CVA, Diverticulitis, Homicidal, Suicidal, threat to staff... and all critical care pts) @ -Threat to hematological function - Lab Data Result diagrams: 12/15/24 17:19 12/15/24 17:19 Lab Results 12/15/24 12/15/24 12/15/24 Range/Units 17:00 17:19 17:19 WBC 11.28 H (4.50-10.00) 10*3/uL RBC 5.42 H (4.10-5.20) 10*6/uL Hgb 16.2 H (12.0-15.0) g/dL Hct 47.7 H (37.2-46.3) % MCV 88.0 (80.0-97.0) fL MCH 29.9 (27.0-32.0) pg MCHC 34.0 (32.0-37.0) g/dL Plt Count 310 (140-440) 10*3/uL MPV 9.4 L (9.5-12.2) fL Immature Gran % (Auto) 0.8 % Neutrophils % 64.5 % Lymphocytes % 28.4 % Monocytes % 5.2 % Eosinophils % 0.7 % Basophils % 0.4 % Immature Gran # 0.09 H (0.00-0.04) 10*3/uL Neutrophils # 7.28 (1.80-7.70) 10*3/uL Lymphocytes # 3.20 (0.90-5.00) 10*3/uL Monocytes # 0.59 (0.20-1.00) 10*3/uL Eosinophils # 0.08 (0.04-0.35) 10*3/uL Basophils # 0.04 (0.00-0.10) 10*3/uL PT 11.3 (10.0-12.5) sec INR 1.0 (<1.2) APTT 20.8 L (22.0-30.0) sec Sodium (137-145) mmol/L Potassium (3.5-5.1) mmol/L Chloride (98-107) mmol/L Carbon Dioxide (22-30) mmol/L Anion Gap mmol/L BUN (7-17) mg/dL Creatinine (0.52-1.04) mg/dL Est GFR (CKD-EPI)AfAm (>60 ml/min/1.73 sqM) Est GFR (CKD-EPI)NonAf (>60 ml/min/1.73 sqM) Glucose (74-99) mg/dL Calcium (8.4-10.2) mg/dL Total Bilirubin (0.2-1.3) mg/dL AST (14-36) U/L ALT (4-34) U/L Alkaline Phosphatase (38-126) U/L Troponin I (0.000-0.034) ng/mL Total Protein (6.3-8.2) g/dL Albumin (3.5-5.0) g/dL Blood Type O Negative Blood Type Recheck O Neg Bld Type Recheck Status No Antibody Screen NEGATIVE Spec Expiration Date 12/18/2024 - 229912/15/24 12/15/24 Range/Units 17:19 17:19 WBC (4.50-10.00) 10*3/uL RBC (4.10-5.20) 10*6/uL Hgb (12.0-15.0) g/dL Hct (37.2-46.3) % MCV (80.0-97.0) fL MCH (27.0-32.0) pg MCHC (32.0-37.0) g/dL Plt Count (140-440) 10*3/uL MPV (9.5-12.2) fL Immature Gran % (Auto) % Neutrophils % % Lymphocytes % % Monocytes % % Eosinophils % % Basophils % % Immature Gran # (0.00-0.04) 10*3/uL Neutrophils # (1.80-7.70) 10*3/uL Lymphocytes # (0.90-5.00) 10*3/uL Monocytes # (0.20-1.00) 10*3/uL Eosinophils # (0.04-0.35) 10*3/uL Basophils # (0.00-0.10) 10*3/uL PT (10.0-12.5) sec INR (<1.2) APTT (22.0-30.0) sec Sodium 139 (137-145) mmol/L Potassium 4.3 (3.5-5.1) mmol/L Chloride 106 (98-107) mmol/L Carbon Dioxide 12 L (22-30) mmol/L Anion Gap 21 mmol/L BUN 23 H (7-17) mg/dL Creatinine 1.39 H (0.52-1.04) mg/dL Est GFR (CKD-EPI)AfAm 44 (>60 ml/min/1.73 sqM) Est GFR (CKD-EPI)NonAf 38 (>60 ml/min/1.73 sqM) Glucose 158 H (74-99) mg/dL Calcium 11.2 H (8.4-10.2) mg/dL Total Bilirubin 0.7 (0.2-1.3) mg/dL AST 29 (14-36) U/L ALT 15 (4-34) U/L Alkaline Phosphatase 137 H (38-126) U/L Troponin I <0.012 (0.000-0.034) ng/mL Total Protein 7.6 (6.3-8.2) g/dL Albumin 5.0 (3.5-5.0) g/dL Blood Type Blood Type Recheck Bld Type Recheck Status Antibody Screen Spec Expiration Date Disposition Clinical Impression: Lower GI hemorrhage Disposition: ADMITTED IP TO THIS HOSP Is patient prescribed a controlled substance at d/c from ED?: No Referrals: Jsoe M Abreu DO [Primary Care Provider] - 1-2 days Time of Disposition: 20:10
[2024-12-15] MEDS: SODIUM CHLORIDE 0.9% 1,000 ML IV STA ×2 (17:18→17:33)
[2024-12-15 17:27] LABS: HCT 47.7 % (37.2-46.3); HGB 16.2 g/dL (12.0-15.0); MCH 29.9 pg (27.0-32.0); MCHC 34.0 g/dL (32.0-37.0); MCV 88.0 fL (80.0-97.0); RBC 5.42 10*6/uL (4.10-5.20); RDW 12.2 % (11.5-14.5); WBC 11.28 10*3/uL (4.50-10.00)
[2024-12-15 17:28] LABS: Basophils # (A) 0.04 10*3/uL (0.00-0.10); Basophils % (A) 0.4 %; Eosinophils # (A) 0.08 10*3/uL (0.04-0.35); Eosinophils % (A) 0.7 %; Lymphocytes # (A) 3.20 10*3/uL (0.90-5.00); Lymphocytes % (A) 28.4 %; Monocytes # (A) 0.59 10*3/uL (0.20-1.00); Monocytes % (A) 5.2 %; Neutrophils # (A) 7.28 10*3/uL (1.80-7.70); Neutrophils % (A) 64.5 %; Platelet Count 310 10*3/uL (140-440)
[2024-12-15] MEDS: PANTOPRAZOLE 40 MG/10 ML VIAL IVP STA (17:30)
[2024-12-15 17:42] LABS: ALT 15 U/L (4-34); AST 29 U/L (14-36); African American GFR (CKD) 44 (>60 ml/min/1.73 sqM); Albumin 5.0 g/dL (3.5-5.0); Alkaline Phosphatase 137 U/L (38-126); Anion Gap 21 mmol/L; Blood Urea Nitrogen 23 mg/dL (7-17); Calcium 11.2 mg/dL (8.4-10.2); Carbon Dioxide 12 mmol/L (22-30); Chloride 106 mmol/L (98-107); Glucose 158 mg/dL (74-99); Non-African American GFR(CKD) 38 (>60 ml/min/1.73 sqM); Potassium 4.3 mmol/L (3.5-5.1); Sodium 139 mmol/L (137-145); Total Protein 7.6 g/dL (6.3-8.2)
[2024-12-15 18:05] LABS: INR 1.0 (<1.2); Prothrombin Time 11.3 sec (10.0-12.5)
[2024-12-15 18:21] LABS: Partial Thromboplastin Time 20.8 sec (22.0-30.0)
[2024-12-15] MEDS ORDERED: NALOXONE 0.4 MG/ML 1 ML VIAL IV PRN (20:10)
[2024-12-15] MEDS: ONDANSETRON 4 MG/2 ML VIAL IVP STA (20:17)
[2024-12-15] MEDS: MORPHINE SULFATE 4 MG/ML SYRINGE IVP STA (20:17)
[2024-12-15] MEDS: SODIUM CHLORIDE 0.9% 1,000 ML IV SCH (20:45)
--- NOTE | 2024-12-15 22:29 | CT ---
EXAMINATION TYPE: CT angio abdomen pelvis CT DLP: 1248.2 mGycm, Automated exposure control for dose reduction was used. DATE OF EXAM: 12/15/2024 9:47 PM COMPARISON:CT abdomen/pelvis 04/07/2024. . CLINICAL INDICATION:Female, 74 years old with history of gi bleed; PHH, Pt c/o malaise, weakness, fou nd on floor covered in feces. TECHNIQUE: Multiple thin slice sub-millimeter images were obtained after administration of contrast. 3-D reconstructed images and maximum intensity projection images were obtained. CT angio abdomen pel vis CT Contrast: Contrast used:80 mL of Isovue 370 with IV Contrast, Oral contrast used: without Oral Contrast None FINDINGS: CTA Abdomen and pelvis: The abdominal aorta does not demonstrate aneurysmal dilatation. Atherosclero tic plaquing is identified within the abdominal aorta. The origins of the superior mesenteric artery , renal arteries, inferior mesenteric artery, and celiac axis are patent. The iliac vessels are reji l in morphology LOWER CHEST: Scattered areas of atelectasis/scarring. A loop recorder device seen over the left chest wall. LIVER: Postsurgical clips are noted along the medial margin. Subcentimeter hypodense focus is seen wi thin the left hepatic lobe too small to characterize. There is a mildly nodular morphology of the rosa maria er. GALLBLADDER AND BILE DUCTS: Unremarkable. PANCREAS: Unremarkable. SPLEEN: Small splenule is present. The spleen is otherwise unremarkable. ADRENAL GLANDS: Unremarkable. KIDNEYS AND URETERS: No evidence of hydronephrosis or renal calculus. The ureters are unremarkable. Right renal simple cyst is redemonstrated. Additional subcentimeter hypodense foci are seen throughou t the bilateral kidneys. PELVIS BLADDER: Incompletely distended but grossly unremarkable. REPRODUCTIVE: Uterus is not visualized. ABDOMEN & PELVIS STOMACH AND BOWEL: Redemonstrated moderate hiatal hernia with patulous esophagus. The esophagus is no anant to be fluid-filled. Small bowel is of normal caliber. The large bowel is seen to be fluid-filled in multiple segments but overall decompressed. Mild colonic wall hyperenhancement and thickening is s een involving the distal colon.The appendix is visualized and appears within normal limits. No eviden ce of bowel obstruction. PERITONEUM: No evidence of pneumoperitoneum or free fluid. MUSCULOSKELETAL: Redemonstrated posterior fusion changes L4-S1. Vertebroplasty changes are also seen at L1 vertebral body. Similar endplate sclerotic changes are seen at L1-L2. Similar appearance of low er thoracic spine compression deformities with similar retropulsion at those levels not significantly changed from the CT in reference. No acute osseous abnormalities LYMPH NODES: No gross evidence for lymphadenopathy. SOFT TISSUE/ABDOMINAL WALL: Left anterior pelvic wall stimulator device is again seen with associated artifact limiting visualization structures in the adjacent areas. IMPRESSION 1. Moderate hiatal hernia with a patulous fluid-filled esophagus. Recommend nasogastric tube adminis tration to prevent aspiration. 2. Fluid-filled large bowel with mild findings suggestive of colitis. These findings can also be seen in the context of diarrhea. 3. No evidence of arterial vascular occlusion or obvious intraluminal enteric hemorrhage. 4. Mildly nodular morphology to the liver. Correlate for cirrhosis. [facility], , 12/15/2024 10:27 PM
[2024-12-15] MEDS: MORPHINE SULFATE 4 MG/ML SYRINGE IV PRN (23:05)
[2024-12-15] MEDS: ONDANSETRON 4 MG/2 ML VIAL IVP PRN (23:06)
--- NOTE | 2024-12-15 23:45 | P.HPIM ---
History of Present Illness H&P Date: 12/15/24 Chief Complaint: Abdominal pain and diarrhea Patient is a 74-year-old female who states she was doing well until the day of admission developed sudden onset of abdominal pain she states she fell to the ground and awoke and was states she had diarrhea which was bloody. The patient states she was mónica that her [employer] delivery folks were there shortly after and found her lying on the floor. The patient was brought to the emergency room for evaluation. The patient was tachycardic she had a hemoglobin of 16 CTA showed patulous esophagus which was fluid-filled and possible colitis. The patient was hospitalized for further workup and management. She was placed on IV PPI. At the time of evaluation. Patient is complaining of pain. Review of Systems Constitutional: Reports weakness Past Medical History Past Medical History: Cancer, Fibromyalgia, GERD/Reflux, GI Bleed, Hyperli pidemia, Hypertension, Liver Disease, Osteoarthritis (OA), Rheumatoid Arthritis (RA), Syncope Additional Past Medical History / Comment(s): Past lower GI bleed, diverticulitis, colitis, IBS, gastric ulcer, hepatitis A, L breast cancer with surgeries/chemo and radiation, cervical cancer with surgery, bronchitis, osteoporosis, neuropathy bilateral feet and hands, chronic pain, past L humeral fracture, T11 spinal injury, chronic cervical and lumbar back pain, migraines, osteoarthritis and rheumatoid arthritis in multiple joints. past drug and etoh abuse- per ptclear for 26 years. History of Any Multi-Drug Resistant Organisms: None Reported Past Surgical History: Section, Hysterectomy, Joint Replacement, Orthop edic Surgery, Tonsillectomy Additional Past Surgical History / Comment(s): ORIF L humerus with carlos/screws since removed, total L shoulder arthroplasty, cervical and lumbar fusions, pain clinic procedures, D&C, bilateral breast reductions with nonhealing wound and had closure/skin grafting, L breast lumpectomies and then L breast mastectomy, R tympanoplasty, EGDs, colonoscopies, ivy fundoplasty, loop recorder. pain pump in left lower abd. Past Anesthesia/Blood Transfusion Reactions: No Reported Reaction Additional Past Anesthesia/Blood Transfusion Reaction / Comment(s): Pt received blood this admission without reaction. Past Psychological History: Anxiety, Depression, Panic Disorder, PTSD Smoking Status: Former smoker Past Alcohol Use History: None Reported Past Drug Use History: None Reported - Past Family History Mother Family Medical History: Myocardial Infarction ([place]) Additional Family Medical History / Comment(s): . Medications and Allergies Home Medications Medication Instructions Recorded Confirmed Type Lisinopril-Hctz 20-12.5 mg 1 tab PO DAILY 01/29/22 10/12/24 History [Zestoretic 20-12.5] Pantoprazole Sodium [Protonix] 40 mg PO DAILY 10/12/24 10/12/24 History Allergies Allergy/AdvReac Type Severity Reaction Status Date / Time Sulfa (Sulfonamide Allergy Severe Rash/Hives Verified 10/12/24 19:44 Antibiotics) Tetracyclines Allergy Severe Rash/Hives Verified 10/12/24 19:44 latex Allergy Rash/Hives Verified 10/12/24 19:44 lorazepam [From Ativan] AdvReac Confusion Verified 10/12/24 19:44 TIDE AND EXTRA LAUNDRY SOAP Allergy Rash/Hives Uncoded 10/12/24 19:44 Physical Exam Vitals: Vital Signs Temp Pulse Resp BP Pulse Ox 12/15/24 23:08 100 18 108/75 95 12/15/24 21:30 96 18 117/70 94 L 12/15/24 19:30 106 H 18 111/81 94 L 12/15/24 17:59 90 18 92/63 98 12/15/24 17:55 86 16 97/60 100 12/15/24 17:50 89 16 105/68 100 12/15/24 17:45 82 15 104/58 100 12/15/24 17:40 82 18 105/48 100 12/15/24 17:35 82 15 104/60 100 12/15/24 17:30 90 16 118/100 99 12/15/24 17:25 85 17 85/59 100 12/15/24 17:20 85 11 L 90/38 100 12/15/24 17:18 88 18 90/38 99 12/15/24 17:15 96 18 78/43 96 12/15/24 17:10 98 18 62/46 100 12/15/24 16:49 99 18 88/71 91 L 12/15/24 16:40 97.4 F L 110 H 18 85/74 94 L Intake and Output 12/15/24 12/15/24 12/16/24 14:59 22:59 06:59 Other: Weight 63.503 kg - Constitutional General appearance: cooperative - Respiratory Respiratory: bilateral: CTA - Gastrointestinal General gastrointestinal: normal bowel sounds (Tenderness to palpation no rebound or guarding) - Integumentary Integumentary: normal - Neurologic Neurologic: CNII-XII intact - Psychiatric Psychiatric: A&O x's 3, appropriate affect Results CBC & Chem 7: 12/15/24 17:19 12/15/24 17:19 Labs: Abnormal Lab Results - Last 24 Hours (Table) 12/15/24 12/15/24 12/15/24 Range/Units 17:19 17:19 17:19 WBC 11.28 H (4.50-10.00) 10*3/uL RBC 5.42 H (4.10-5.20) 10*6/uL Hgb 16.2 H (12.0-15.0) g/dL Hct 47.7 H (37.2-46.3) % MPV 9.4 L (9.5-12.2) fL Immature Gran # 0.09 H (0.00-0.04) 10*3/uL APTT 20.8 L (22.0-30.0) sec Carbon Dioxide 12 L (22-30) mmol/L BUN 23 H (7-17) mg/dL Creatinine 1.39 H (0.52-1.04) mg/dL Glucose 158 H (74-99) mg/dL Calcium 11.2 H (8.4-10.2) mg/dL Alkaline Phosphatase 137 H (38-126) U/L CT scan - abdomen: report reviewed Assessment and Plan (1) Lower GI hemorrhage Narrative/Plan: Trend hemoglobin Current Visit: Yes Status: Acute Code(s): K92.2 - GASTROINTESTINAL HEMORRHAGE, UNSPECIFIED SNOMED Code(s): 28216098 (2) Colitis Current Visit: No Status: Acute Code(s): K52.9 - NONINFECTIVE GASTROENTERITI S AND COLITIS, UNSPECIFIED SNOMED Code(s): 09173737 (3) Acute diarrhea Narrative/Plan: Secondary to colitis Current Visit: No Status: Acute Code(s): R19.7 - DIARRHEA, UNSPECIFIED SNOMED Code(s): 593658291 (4) HTN (hypertension) Narrative/Plan: Continue home regiment and titrate as needed Current Visit: No Status: Acute Code(s): I10 - ESSENTIAL (PRIMARY) HYPERTENSION SNOMED Code(s): 35101616 (5) Hiatal hernia Narrative/Plan: Notes esophagus, NG tube recommended Current Visit: No Status: Acute Code(s): K44.9 - DIAPHRAGMATIC HERNIA WITHOUT OBSTRUCTION OR GANGRENE SNOMED Code(s): 01701961 Plan: Will treat with Rocephin and Flagyl, pain control, GI consult, continue IV PPI, NG
[2024-12-16 07:53] LABS: Basophils # (A) 0.03 10*3/uL (0.00-0.10); Basophils % (A) 0.3 %; Eosinophils # (A) 0.01 10*3/uL (0.04-0.35); Eosinophils % (A) 0.1 %; HCT 42.7 % (37.2-46.3); HGB 14.0 g/dL (12.0-15.0); Lymphocytes # (A) 1.84 10*3/uL (0.90-5.00); Lymphocytes % (A) 19.0 %; MCH 29.8 pg (27.0-32.0); MCHC 32.8 g/dL (32.0-37.0); MCV 90.9 fL (80.0-97.0); Monocytes # (A) 0.82 10*3/uL (0.20-1.00); Monocytes % (A) 8.5 %; Neutrophils # (A) 6.95 10*3/uL (1.80-7.70); Neutrophils % (A) 71.8 %; Platelet Count 275 10*3/uL (140-440); RBC 4.70 10*6/uL (4.10-5.20); RDW 12.3 % (11.5-14.5); WBC 9.68 10*3/uL (4.50-10.00)
[2024-12-16] MEDS: metroNIDAZOLE-NS PMX 500 MG in SALINE 1 100ML.BAG IVPB SCH (08:05)
[2024-12-16 08:12] LABS: African American GFR (CKD) 70 (>60 ml/min/1.73 sqM); Anion Gap 13 mmol/L; Blood Urea Nitrogen 23 mg/dL (7-17); Calcium 10.0 mg/dL (8.4-10.2); Carbon Dioxide 20 mmol/L (22-30); Chloride 109 mmol/L (98-107); Glucose 131 mg/dL (74-99); Non-African American GFR(CKD) 60 (>60 ml/min/1.73 sqM); Potassium 4.4 mmol/L (3.5-5.1); Sodium 142 mmol/L (137-145)
[2024-12-16] MEDS ORDERED: PANTOPRAZOLE 40 MG/10 ML VIAL IV SCH (09:00)
[2024-12-16] MEDS ORDERED: LISINOPRIL-HCTZ 20-12.5 MG 1 EACH TAB PO SCH (09:00)
[2024-12-16] MEDS: LEVOTHYROXINE 25 MCG TAB PO SCH (09:44)
[2024-12-16] MEDS: GABAPENTIN 300 MG CAP PO SCH (09:45)
[2024-12-16] MEDS: PANTOPRAZOLE 40 MG/10 ML VIAL IV SCH (09:45)
[2024-12-16] MEDS: VENLAFAXINE HCL ER 75 MG CAP PO SCH (09:45)
[2024-12-16] MEDS: hydrOXYzine HCL 25 MG TAB PO SCH (09:46)
--- NOTE | 2024-12-16 10:41 | P.CONS ---
History of Present Illness - Reason for Consult Consult date: 12/16/24 Lower GI hemorrhage Requesting physician: Felipe Ambriz - Chief Complaint Diarrhea with blood - History of Present Illness This a pleasant 74-year-old female with multiple comorbidities including fibromyalgia, IBS, chronic intermittent diarrhea, GI bleed, diverticulitis, hep atitis A, breast cancer and cervical cancer, liver disease with a history of alcohol and drug abuse. Patient reports yesterday afternoon around 2 PM she started having diarrhea she became diaphoretic on the toilet and states she had passed out. She had multiple episodes of loose bowel movements which then were black with blood in them. She came into the emergency department for further evaluation secondary to increased weakness and diarrhea. Last bowel movement was yesterday evening at 7 PM. She had a CT angiogram of the abdomen and pelvis that reported moderate hiatal hernia fluid-filled esophagus, fluid filled large bowel possible colitis versus diarrhea. Gastroenterology was consulted for GI bleed. Patient denies any further bleeding, last bowel movement again was yesterday evening around 7:00 which was pretty dark. She denies any recent travel. No abdominal pain at this time. States she is feeling much better. Had a similar episode in June of this year and was seen at [facility] and underwent EGD and colonoscopy with Dr. Pollack. She states no abnormal findings. Reports not available at this time. Admitting labs WBC 11.2 hemoglobin 16 hematocrit 47 platelet count 310,000 INR 1.0 sodium 139 potassium 4.2 BUN 23 creatinine 1.3 total bilirubin 0.7 AST 29 ALT 15 alkaline phosphatase 137 with repeat WBC 9.6 hemoglobin 14 platelet count 275,000 sodium 142 potassium 4.4 BUN elevated at 23 creatinine normal 0.9 Review of Systems REVIEW OF SYSTEMS: CARDIOPULMONARY: No chest pain or shortness of breath. Gastrointestinal: No abdominal pain. No nausea or vomiting. No hematemesis, coffee-ground emesis. Multiple episodes of diarrhea that were dark, with blood in it. GENITOURINARY: No dysuria or hematuria. MUSCULOSKELETAL: Reports normal range of motion., Chronic joint pain. SKIN: No rashes. No jaundice. ENDOCRINE: No chills, fevers. No excessive weight gain or loss. No polydipsia or polyuria. PSYCHIATRIC: Unremarkable. NEUROLOGY: No change in mental status. Denies dizziness, headache. ENT: Vision unremarkable. CONSTITUTIONAL: No recent weight loss. No fever, chills, night sweats. Past Medical History Past Medical History: Cancer, Fibromyalgia, GERD/Reflux, GI Bleed, Hyperlipidemia, Hypertension, Liver Disease, Osteoarthritis (OA), Rheumatoid Arthritis (RA), Syncope Additional Past Medical History / Comment(s): Past lower GI bleed, d iverticulitis, colitis, IBS, gastric ulcer, hepatitis A, L breast cancer with surgeries/chemo and radiation, cervical cancer with surgery, bronchitis, osteoporosis, neuropathy bilateral feet and hands, chronic pain, past L humeral fracture, T11 spinal injury, chronic cervical and lumbar back pain, migraines, osteoarthritis and rheumatoid arthritis in multiple joints. past drug and etoh abuse- per ptclear for 26 years. History of Any Multi-Drug Resistant Organisms: None Reported Past Surgical History: Section, Hysterectomy, Joint Replacement, Orthopedic Surgery, Tonsillectomy Additional Past Surgical History / Comment(s): ORIF L humerus with carlos/screws since removed, total L shoulder arthroplasty, cervical and lumbar fusions, pain clinic procedures, D&C, bilateral breast reductions with nonhealing wound and had closure/skin grafting, L breast lumpectomies and then L breast mastectomy, R tympanoplasty, EGDs, colonoscopies, ivy fundoplasty, loop recorder. pain pump in left lower abd. Past Anesthesia/Blood Transfusion Reactions: No Reported Reaction Additional Past Anesthesia/Blood Transfusion Reaction / Comm: Pt received blood this admission without reaction. Past Psychological History: Anxiety, Depression, Panic Disorder, PTSD Smoking Status: Former smoker Past Alcohol Use History: None Reported Past Drug Use History: None Reported - Past Family History Mother Family Medical History: Myocardial Infarction ([place]) Additional Family Medical History / Comment(s): . Medications and Allergies Home Medications Medication Instructions Recorded Confirmed Type Pantoprazole Sodium [Protonix] 40 mg PO BID 10/12/24 12/16/24 History [id number] 2 tab PO BID PRN 12/16/24 12/16/24 History [Excedrin] Gabapentin [Neurontin] 300 mg PO BID 12/16/24 12/16/24 History Levothyroxine Sodium [Synthroid] 25 mcg PO DAILY 12/16/24 12/16/24 History Ondansetron Odt [Zofran Odt] 4 mg PO Q8HR PRN 12/16/24 12/16/24 History QUEtiapine [SEROquel] 50 mg PO HS 12/16/24 12/16/24 History Venlafaxine HCl [Effexor XR] 75 mg PO DAILY 12/16/24 12/16/24 History hydrOXYzine HCL 25 mg PO TID 12/16/24 12/16/24 History lisinopriL [Zestril] 5 mg PO DAILY 12/16/24 12/16/24 History Allergies Allergy/AdvReac Type Severity Reaction Status Date / Time Sulfa (Sulfonamide Allergy Severe Rash/Hives Verified 12/16/24 08:08 Antibiotics) Tetracyclines Allergy Severe Rash/Hives Verified 12/16/24 08:08 latex Allergy Rash/Hives Verified 12/16/24 08:08 lorazepam [From Ativan] AdvReac Confusion Verified 12/16/24 08:08 TIDE AND EXTRA LAUNDRY SOAP Allergy Rash/Hives Uncoded 10/12/24 19:44 Physical Exam Vitals: Vital Signs Temp Pulse Resp BP Pulse Ox 12/16/24 08:09 79 16 116/62 92 L 12/16/24 06:38 90 18 106/72 96 12/16/24 05:07 68 18 111/69 94 L 12/16/24 02:38 89 18 116/85 95 12/15/24 23:08 100 18 108/75 95 12/15/24 21:30 96 18 117/70 94 L 12/15/24 19:30 106 H 18 111/81 94 L 12/15/24 17:59 90 18 92/63 98 12/15/24 17:55 86 16 97/60 100 12/15/24 17:50 89 16 105/68 100 12/15/24 17:45 82 15 104/58 100 12/15/24 17:40 82 18 105/48 100 12/15/24 17:35 82 15 104/60 100 12/15/24 17:30 90 16 118/100 99 12/15/24 17:25 85 17 85/59 100 12/15/24 17:20 85 11 L 90/38 100 12/15/24 17:18 88 18 90/38 99 12/15/24 17:15 96 18 78/43 96 12/15/24 17:10 98 18 62/46 100 12/15/24 16:49 99 18 88/71 91 L 12/15/24 16:40 97.4 F L 110 H 18 85/74 94 L Intake and Output 12/15/24 12/16/24 12/16/24 22:59 06:59 14:59 Other: Weight 63.503 kg General appearance: The patient is alert, oriented, appears in no acute distress . HET: Head is normocephalic and atraumatic. Conjunctiva pink. Sclera anicteric. Neck: Supple without lymphadenopathy. Trachea midline. Heart: Regular. Lungs: Equal expansion, normal respiratory effort. Abdomen: Soft, nontender, nondistended. Skin: No rashes. No jaundice. Extremities: Normal skin color and turgor. No pedal edema. Neurological: No focal deficits. Alert and oriented x3. Results CBC & Chem 7: 12/16/24 11:33 12/16/24 07:03 Labs: Abnormal Lab Results - Last 24 Hours (Table) 12/15/24 12/15/24 12/15/24 Range/Units 17:19 17:19 17:19 WBC 11.28 H (4.50-10.00) 10*3/uL RBC 5.42 H (4.10-5.20) 10*6/uL Hgb 16.2 H (12.0-15.0) g/dL Hct 47.7 H (37.2-46.3) % MPV 9.4 L (9.5-12.2) fL Immature Gran # 0.09 H (0.00-0.04) 10*3/uL Eosinophils # (0.04-0.35) 10*3/uL APTT 20.8 L (22.0-30.0) sec Chloride (98-107) mmol/L Carbon Dioxide 12 L (22-30) mmol/L BUN 23 H (7-17) mg/dL Creatinine 1.39 H (0.52-1.04) mg/dL Glucose 158 H (74-99) mg/dL Calcium 11.2 H (8.4-10.2) mg/dL Alkaline Phosphatase 137 H (38-126) U/L 12/16/24 12/16/24 Range/Units 07:03 07:03 WBC (4.50-10.00) 10*3/uL RBC (4.10-5.20) 10*6/uL Hgb (12.0-15.0) g/dL Hct (37.2-46.3) % MPV (9.5-12.2) fL Immature Gran # (0.00-0.04) 10*3/uL Eosinophils # 0.01 L (0.04-0.35) 10*3/uL APTT (22.0-30.0) sec Chloride 109 H (98-107) mmol/L Carbon Dioxide 20 L (22-30) mmol/L BUN 23 H (7-17) mg/dL Creatinine (0.52-1.04) mg/dL Glucose 131 H (74-99) mg/dL Calcium (8.4-10.2) mg/dL Alkaline Phosphatase (38-126) U/L Comments: CT angiogram abdomen pelvis reports moderate hiatal hernia with a patulous fluid-filled esophagus. Recommend nasogastric tube administration to prevent aspiration. Fluid-filled large bowel with mild findings suggestive of colitis. These findings can also be seen in the context of diarrhea. No evidence of arterial vascular occlusion or obvious intraluminal enteritis hemorrhage. Mildly nodular morphology of liver. Correlate for cirrhosis. Assessment and Plan (1) GI bleed Narrative/Plan: 74-year-old female with history of diverticulitis/colitis, IBS presenting with acute onset of diarrhea with multiple episodes of watery dark stool with some bright red blood per patient associated with some mild lower abdominal cramping. Abdomen pelvis CTA with fluid-filled large bowel possible colitis versus diarrhea. Need to consider possible infectious versus inflammatory colitis with previous history colitis. Symptoms now resolved Including diarrhea and bleeding. Continue IV antibiotics, leukocytosis resolved. Will request EGD and colonoscopy report from June. No plans at this time for endoscopic evaluation. Current Visit: No Status: Acute Code(s): K92.2 - GASTROINTESTINAL HEMORRHAGE, UNSPECIFIED SNOMED Code(s): 07573754 (2) Acute diarrhea Current Visit: No Status: Acute Code(s): R19.7 - DIARRHEA, UNSPECIFIED SNOMED Code(s): 212643808 (3) Leukocytosis Narrative/Plan: Resolved Current Visit: Yes Status: Acute Code(s): D72.829 - ELEVATED WHITE BLOOD CELL COUNT, UNSPECIFIED SNOMED Code(s): 871741238 Plan: 1. Continue symptomatic and supportive care 2. Increase Protonix to 40 mg twice daily which is patient's home dose 3. Daily CBC, transfuse for hemoglobin less than 7 4. Please obtain stool for C. difficile and stool culture 5. Patient may have clear liquid diet, n.p.o. after midnight 6. Records requested from [facility] for EGD and colonoscopy done in June [address] Dukes 7. Will plan for upper endoscopy tomorrow Thank you for this consultation, we will continue to follow. Dr. Judi Tony I agree with the dictator's note, documented as a scribe by Dayan Fuller.
[2024-12-16 12:27] LABS: HCT 41.1 % (37.2-46.3); HGB 13.6 g/dL (12.0-15.0); MCH 29.8 pg (27.0-32.0); MCHC 33.1 g/dL (32.0-37.0); MCV 89.9 fL (80.0-97.0); Platelet Count 272 10*3/uL (140-440); RBC 4.57 10*6/uL (4.10-5.20); RDW 12.3 % (11.5-14.5); WBC 10.25 10*3/uL (4.50-10.00)
--- NOTE | 2024-12-16 15:33 | P.PN ---
Subjective Progress Note Date: 12/16/24 Hospital course: Patient is a very pleasant 79-year-old male with a past medical history of previous GI bleed, diverticulitis with chronic intermittent diarrhea, hypertension, hyperlipidemia, hypothyroidism, fibromyalgia, breast cancer status post left mastectomy followed by chemo therapy and radiation, cervical cancer status post hysterectomy, liver cirrhosis, anxiety with depression, chronic back pain, and neuropathy bilateral hands and feet. She presented to the emergency department status post syncopal episode. Patient reports she went to the restroom and felt cramping pain in her abdomen followed by multiple episodes of diarrhea with maroon-colored blood and blood clots resulting in dizziness with severe diaphoresis and a syncopal episode. Upon arrival to our facility, patient underwent evaluation in the emergency department. Vital signs upon arrival show blood pressure 85/74, heart rate 110, respiratory rate 18, temp 97.4 F, and SpO2 of 94% on room air. Labs completed and reviewed. CBC showing leukocytosis with WBC count of 11.28 and elevated hemoglobin of 16.2 with hematocrit of 47.7. Coagulation profile showing a low PTT of 20.8 otherwise normal findings. BMP showing high anion gap metabolic acidosis with chloride of 106, bicarb of 12, and anion gap of 21 along with acute kidney injury with BUN of 23, creatinine of 1.39, GFR of 38. Blood glucose was 158. Liver profile showing elevated alkaline phosphatase of 137 otherwise normal findings. Troponin was negative at less than 0.012. CTA abdomen and pelvis was completed showing moderate hiatal hernia with patulous fluid-filled esophagus, fluid- filled large bowel suggestive of colitis and mildly nodular morphology of the liver correlate for cirrhosis. Physical exam: Vital signs reviewed and stable. General: Nontoxic, no distress and appears stated age. Derm: Skin warm and dry, normal coloration for ethnicity. Head: Atraumatic, normocephalic and symmetric. Eyes: EOM's intact, no lid lag, and anicteric sclera Mouth: no lip lesions, mucus membranes moist Cardiovascular: regular rate and rhythm with normal S1S2, no murmur, positive posterior tibial pulses bilaterally, and cap refill < 2 seconds. Lungs: Respirations even, regular, and unlabored on room air. Lungs CTA bilaterally, no rhonchi, no rales, no wheezing, and no accessory muscle usage. Abdominal: soft, nontender to palpation, no guarding, no appreciable organomegaly Ext: ROM intact. No gross muscle atrophy, no edema, no contractures Neuro: Speech clear, face symmetrical and CN II-XII grossly intact with no noted focal neuro deficits Psych: Alert and oriented to person, place, time, and situation. Appropriate and pleasant affect. Assessment and Plan of Care: Lower GI bleed Colitis Leukocytosis Sepsis on arrival as evidenced by leukocytosis, hypotension and tachycardia -Gastroenterology following. -Close trending of hemoglobin every 6 hours, transfuse for symptomatic anemia and/or hemoglobin less than 7. -Continue Protonix 40 mg IV twice daily -Telemetry monitoring. -Gentle IV fluid hydration with 0.9% normal saline in 120 cc/h - N.p.o. pending recommendations from gastroenterology. -Continue IV antibiotics with Rocephin 1 g every 24 hours and Flagyl 500 mg every 8 hours. -Symptomatic care and pain management with Zofran 4 mg IVP every 8 hours as needed for nausea or vomiting and morphine 4 mg IVP every 4 hours as needed for pain. - Follow-up on stool culture and C. difficile Acute kidney injury Hypercalcemia Resolved with IV fluid hydration. Hypertension Monitor vital signs and continue daily medication regimen with lisinopril 5 mg daily. Hypothyroidism Continue daily medication regimen with levothyroxine 25 mcg daily. Anxiety with depression Continue Effexor 75 mg daily and Seroquel 50 mg nightly. Data and imaging reviewed: Morning labs reviewed. Hemoglobin trended resulting at 16.2, 14.0, and 13.6. BMP showing improvement but continued high anion gap metabolic acidosis with chloride of 109, bicarb of 20, and anion gap of 13 and resolution of ANIYA with BUN of 23, creatinine of 0.95, GFR of 60. Blood glucose 131. Calcium 10.0. Vital signs reviewed. Blood pressure 116/62, heart rate 79, respiratory rate 16, and SpO2 of 92% on room air. CODE STATUS: Full code DVT prophylaxis: MARCIO carlose and SCDs Anticipated discharge date: Pending clinical course Anticipated discharge place: Home Patient was seen independently by Nurse Pracitioner. This document was prepared using [employer] dictation software. Please allow for errors in manager cardiac cath, while rare they do occur. Jad Woodruff NP rendered care for this patient independently, reviewed the findings and plan as documented in the note above and agree with plan. I did not physically speak with or examine the patient on this date. Objective - Vital Signs Vital signs: Vital Signs Temp 97.4 F L 12/15/24 16:40 Pulse 79 12/16/24 08:09 Resp 16 12/16/24 08:09 BP 116/62 12/16/24 08:09 Pulse Ox 92 L 12/16/24 08:09 FiO2 Intake & Output 12/15/24 12/16/24 12/16/24 18:59 06:59 18:59 Weight 63.503 kg - Labs CBC & Chem 7: 12/16/24 11:33 12/16/24 07:03 Labs: Abnormal Lab Results - Last 24 Hours (Table) 12/15/24 12/15/24 12/15/24 Range/Units 17:19 17:19 17:19 WBC 11.28 H (4.50-10.00) 10*3/uL RBC 5.42 H (4.10-5.20) 10*6/uL Hgb 16.2 H (12.0-15.0) g/dL Hct 47.7 H (37.2-46.3) % MPV 9.4 L (9.5-12.2) fL Immature Gran # 0.09 H (0.00-0.04) 10*3/uL Eosinophils # (0.04-0.35) 10*3/uL APTT 20.8 L (22.0-30.0) sec Chloride (98-107) mmol/L Carbon Dioxide 12 L (22-30) mmol/L BUN 23 H (7-17) mg/dL Creatinine 1.39 H (0.52-1.04) mg/dL Glucose 158 H (74-99) mg/dL Calcium 11.2 H (8.4-10.2) mg/dL Alkaline Phosphatase 137 H (38-126) U/L 12/16/24 12/16/24 Range/Units 07:03 07:03 WBC (4.50-10.00) 10*3/uL RBC (4.10-5.20) 10*6/uL Hgb (12.0-15.0) g/dL Hct (37.2-46.3) % MPV (9.5-12.2) fL Immature Gran # (0.00-0.04) 10*3/uL Eosinophils # 0.01 L (0.04-0.35) 10*3/uL APTT (22.0-30.0) sec Chloride 109 H (98-107) mmol/L Carbon Dioxide 20 L (22-30) mmol/L BUN 23 H (7-17) mg/dL Creatinine (0.52-1.04) mg/dL Glucose 131 H (74-99) mg/dL Calcium (8.4-10.2) mg/dL Alkaline Phosphatase (38-126) U/L
[2024-12-16] MEDS: QUEtiapine 50 MG TAB PO SCH (20:31)
[2024-12-16 20:53] LABS: HCT 33.9 % (37.2-46.3); HGB 11.3 g/dL (12.0-15.0); MCH 30.2 pg (27.0-32.0); MCHC 33.3 g/dL (32.0-37.0); MCV 90.6 fL (80.0-97.0); Platelet Count 212 10*3/uL (140-440); RBC 3.74 10*6/uL (4.10-5.20); RDW 12.3 % (11.5-14.5); WBC 9.26 10*3/uL (4.50-10.00)
[2024-12-17 00:52] LABS: HCT 33.5 % (37.2-46.3); HGB 10.9 g/dL (12.0-15.0); MCH 29.9 pg (27.0-32.0); MCHC 32.5 g/dL (32.0-37.0); MCV 91.8 fL (80.0-97.0); Platelet Count 200 10*3/uL (140-440); RBC 3.65 10*6/uL (4.10-5.20); RDW 12.4 % (11.5-14.5); WBC 6.81 10*3/uL (4.50-10.00)
[2024-12-17 06:04] LABS: HCT 33.0 % (37.2-46.3); HGB 10.9 g/dL (12.0-15.0); MCH 30.4 pg (27.0-32.0); MCHC 33.0 g/dL (32.0-37.0); MCV 91.9 fL (80.0-97.0); Platelet Count 179 10*3/uL (140-440); RBC 3.59 10*6/uL (4.10-5.20); RDW 12.3 % (11.5-14.5); WBC 7.50 10*3/uL (4.50-10.00)
[2024-12-17] MEDS ORDERED: PROPOFOL 10 MG/ML 20 ML VIAL IV ONE (12:25)
[2024-12-17] MEDS ORDERED: LIDOCAINE 1% INJ 10MG/ML (20 ML MDV) ONE (12:25)
[2024-12-17] MEDS: SODIUM CHLORIDE 0.9% 500 ML 500 ML IV ONE (12:27)
--- NOTE | 2024-12-17 12:34 | P.PCN ---
Date of Procedure: 12/17/24 Procedure(s) Performed: BRIEF HISTORY: Patient is a 74-year-old, pleasant, white female admitted to hospital with fatigue weakness and multiple episodes of black tarry stools of 2 days duration. Hemoglobin initially was 14 and dropped to 10 g/dL. Was given upper endoscopy to evaluate for. PROCEDURE PERFORMED: Esophagogastroduodenoscopy. PREOPERATIVE DIAGNOSIS: Black tarry stools with anemia. IV sedation per anesthesia. PROCEDURE: After informed consent was obtained, the patient was brought into the endoscopy unit. IV sedation was administered by Anesthesia under continuous monitoring. Initially the Olympus GIF-140 video endoscope was inserted into the mouth. Esophagus intubated without any difficulty. It was gradually advanced into the stomach and duodenum and carefully examined. The bulb and the second part of the duodenum appeared normal. The scope at this time was withdrawn to the stomach, adequately insufflated with air, and upon careful examination, mucosa of the antrum, had scattered erosions but no active bleeding noted. Mucosa of the body, cardia and the fundus appeared normal. The scope was then withdrawn into the esophagus. The GE junction was located at 39 cm from the incisors. The esophagus appeared normal. There were no erosions or ulcerations seen and the patient tolerated the procedure well. IMPRESSION: 1. Mild antral erosive gastritis. 2. No evidence of acute upper GI bleeding. RECOMMENDATIONS: The findings of this examination were discussed with the patient. Continue with Protonix 40 mg twice daily. Start on a regular diet. Monitor CBC daily..
--- NOTE | 2024-12-17 17:13 | P.PN ---
Subjective Progress Note Date: 12/17/24 Hospital course: Patient is a very pleasant 79-year-old male with a past medical history of previous GI bleed, diverticulitis with chronic intermittent diarrhea, hypertension, hyperlipidemia, hypothyroidism, fibromyalgia, breast cancer status post left mastectomy followed by chemo therapy and radiation, cervical cancer status post hysterectomy, liver cirrhosis, anxiety with depression, chronic back pain, and neuropathy bilateral hands and feet. She presented to the emergency department status post syncopal episode. Patient reports she went to the restroom and felt cramping pain in her abdomen followed by multiple episodes of diarrhea with maroon-colored blood and blood clots resulting in dizziness with severe diaphoresis and a syncopal episode. Upon arrival to our facility, patient underwent evaluation in the emergency department. Vital signs upon arrival show blood pressure 85/74, heart rate 110, respiratory rate 18, temp 97.4 F, and SpO2 of 94% on room air. Labs completed and reviewed. CBC showing leukocytosis with WBC count of 11.28 and elevated hemoglobin of 16.2 with hematocrit of 47.7. Coagulation profile showing a low PTT of 20.8 otherwise normal findings. BMP showing high anion gap metabolic acidosis with chloride of 106, bicarb of 12, and anion gap of 21 along with acute kidney injury with BUN of 23, creatinine of 1.39, GFR of 38. Blood glucose was 158. Liver profile showing elevated alkaline phosphatase of 137 otherwise normal findings. Troponin was negative at less than 0.012. CTA abdomen and pelvis was completed showing moderate hiatal hernia with patulous fluid-filled esophagus, fluid- filled large bowel suggestive of colitis and mildly nodular morphology of the liver correlate for cirrhosis. Physical exam: Patient was seen and fully evaluated at bedside this morning. She was awaiting to be taken down for upper endoscopy later this morning with Dr. Tony. She reports other than having her chronic back pain she denies any complaints at this time. Patient states she did have a bowel movement again this morning that was loose, but states she did not see any blood or blood clots this time. Continues to deny having any dizziness, lightheadedness, chest pain, palpitations, shortness of breath, abdominal pain or discomfort, nausea or vomiting. Vital signs reviewed and stable with the exception of soft blood pressure of 95/57 with heart rate of 73. General: Nontoxic, no distress and appears stated age. Derm: Skin warm and dry, normal coloration for ethnicity. Head: Atraumatic, normocephalic and symmetric. Eyes: EOM's intact, no lid lag, and anicteric sclera Mouth: no lip lesions, mucus membranes moist Cardiovascular: regular rate and rhythm with normal S1S2, no murmur, positive posterior tibial pulses bilaterally, and cap refill < 2 seconds. Lungs: Respirations even, regular, and unlabored on room air. Lungs CTA bilaterally, no rhonchi, no rales, no wheezing, and no accessory muscle usage. Abdominal: soft, nontender to palpation, no guarding, no appreciable organomegaly Ext: ROM intact. No gross muscle atrophy, no edema, no contractures Neuro: Speech clear, face symmetrical and CN II-XII grossly intact with no noted focal neuro deficits Psych: Alert and oriented to person, place, time, and situation. Appropriate and pleasant affect. Assessment and Plan of Care: Lower GI bleed Acute blood loss anemia Colitis Leukocytosis Sepsis on arrival as evidenced by leukocytosis, hypotension and tachycardia -Gastroenterology following discussed plan of care with gastroenterology HELMET COVERER. Patient being taken down for upper endoscopy with Dr. Tony later this morning. -Hemoglobin trended initially 16.2 with current hemoglobin of 10.9. -Continue Protonix 40 mg IV twice daily -Telemetry monitoring. -Gentle IV fluid hydration with 0.9% normal saline in 120 cc/h, may discontinue once diet is advanced. -N.p.o. pending completion of upper endoscopy and further recommendations from gastroenterology. -Continue IV antibiotics with Rocephin 1 g every 24 hours and Flagyl 500 mg every 8 hours. -Symptomatic care and pain management with Zofran 4 mg IVP every 8 hours as needed for nausea or vomiting and morphine 4 mg IVP every 4 hours as needed for pain. - Follow-up on stool culture and C. difficile Acute kidney injury Hypercalcemia Resolved with IV fluid hydration. Hypertension Monitor vital signs and continue daily medication regimen with lisinopril 5 mg daily. Hypothyroidism Continue daily medication regimen with levothyroxine 25 mcg daily. Anxiety with depression Continue Effexor 75 mg daily and Seroquel 50 mg nightly. Data and imaging reviewed: Morning labs reviewed. CBC has been trended resulting in a 16.2, 14.0, 13.6, 11.3, 10.9, and again this morning of 10.9. Vital signs reviewed. Blood pressure soft this morning at 95/57, heart rate 73, respiratory rate 20, temp 98.1 F, and SpO2 of 92% on room air. CODE STATUS: Full code DVT prophylaxis: MARCIO gonzalez and SCDs Anticipated discharge date: Pending clinical course Anticipated discharge place: Home Patient was seen independently by Nurse Pracitioner. This document was prepared using [employer] dictation software. Please allow for errors in pipe processor, while rare they do occur. Jad Woodruff NP rendered care for this patient independently, reviewed the findings and plan as documented in the note above and agree with plan. I did no t physically speak with or examine the patient on this date. Objective - Vital Signs Vital signs: Vital Signs Temp 98.1 F 12/17/24 07:09 Pulse 73 12/17/24 07:09 Resp 20 12/17/24 07:09 BP 95/57 12/17/24 07:09 Pulse Ox 92 L 12/17/24 07:09 FiO2 Intake & Output 12/16/24 12/17/24 12/17/24 18:59 06:59 18:59 Other: Voiding Method Diaper Incontinent # Voids 1 - Labs CBC & Chem 7: 12/17/24 05:29 12/16/24 07:03 Labs: Abnormal Lab Results - Last 24 Hours (Table) 12/16/24 12/16/24 12/17/24 Range/Units 11:33 20:41 00:08 WBC 10.25 H (4.50-10.00) 10*3/uL RBC 3.74 L 3.65 L (4.10-5.20) 10*6/uL Hgb 11.3 L 10.9 L (12.0-15.0) g/dL Hct 33.9 L 33.5 L (37.2-46.3) % 12/17/24 Range/Units 05:29 WBC (4.50-10.00) 10*3/uL RBC 3.59 L (4.10-5.20) 10*6/uL Hgb 10.9 L (12.0-15.0) g/dL Hct 33.0 L (37.2-46.3) %
[2024-12-18 07:52] LABS: HCT 29.6 % (37.2-46.3); HGB 9.4 g/dL (12.0-15.0); MCH 29.4 pg (27.0-32.0); MCHC 31.8 g/dL (32.0-37.0); MCV 92.5 FL (80.0-97.0); NRBC Per 100 WBC 0 X 10*3/uL (0.00-0.01); Platelet Count 158 X 10*3/uL (140-440); RBC 3.20 X 10*6/uL (4.10-5.20); RDW 12.8 % (11.5-14.5); WBC 5.07 X 10*3/uL (4.50-10.00)
[2024-12-18 08:08] LABS: Anion Gap 7.90 mmol/L (4.00-12.00); BUN/Creat Ratio 7.50 Ratio (12.00-20.00); Blood Urea Nitrogen 6.0 mg/dL (9.0-27.0); Carbon Dioxide 23.1 mmol/L (21.6-31.8); Chloride 112 mmol/L (96-109); Glucose 92 mg/dL (70-110); Magnesium 1.2 mg/dL (1.5-2.4); Potassium 3.8 mmol/L (3.5-5.5); Sodium 143 mmol/L (135-145)
[2024-12-18 08:09] LABS: Calcium 8.9 mg/dL (8.7-10.3)
[2024-12-18] MEDS ORDERED: Potassium Replacement Protocol 1 EACH MISC MISCELLANE PRN (08:11)
[2024-12-18] MEDS ORDERED: Magnesium Replacement Protocol 1 EACH MISC MISCELLANE PRN (08:11)
[2024-12-18] MEDS: MAGNESIUM SULFATE-D5W PMX 1 GM in DEXTROSE/WATER 1 100ML.BAG IVPB SCH (08:48)
[2024-12-18] MEDS: POTASSIUM CHLORIDE ER 20 MEQ TAB.ER PO SCH (08:48)
[2024-12-18] MEDS: MAGNESIUM CITRATE 296 ML BOTTLE PO ONE ×2 (09:21→09:53)
--- NOTE | 2024-12-18 12:16 | P.PN ---
Subjective Progress Note Date: 12/18/24 Principal diagnosis: GI bleed This a pleasant 74-year-old female with multiple comorbidities including fibromyalgia, IBS, chronic intermittent diarrhea, GI bleed, diverticulitis, hepatitis A, breast cancer and cervical cancer, liver disease with a history of alcohol and drug abuse. Patient reports yesterday afternoon around 2 PM she started having diarrhea she became diaphoretic on the toilet and states she had passed out. She had multiple episodes of loose bowel movements which then were black with blood in them. She came into the emergency department for further evaluation secondary to increased weakness and diarrhea. Last bowel movement was yesterday evening at 7 PM. She had a CT angiogram of the abdomen and pelvis that reported moderate hiatal hernia fluid-filled esophagus, fluid filled large bowel possible colitis versus diarrhea. Gastroenterology was consulted for GI bleed. Patient denies any further bleeding, last bowel movement again was yesterday evening around 7:00 which was pretty dark. She denies any recent travel. No abdominal pain at this time. States she is feeling much better. Had a similar episode in June of this year and was seen at [facility] and underwent EGD and colonoscopy with Dr. Pollack. She states no abnormal findings. Reports not available at this time. Admitting labs WBC 11.2 hemoglobin 16 hematocrit 47 platelet count 310,000 INR 1.0 sodium 139 potassium 4.2 BUN 23 creatinine 1.3 total bilirubin 0.7 AST 29 ALT 15 alkaline phosphatase 137 with repeat WBC 9.6 hemoglobin 14 platelet count 275,000 sodium 142 potassium 4.4 BUN elevated at 23 creatinine normal 0.9 12/18/2024 Patient seen and examined today as a follow-up. Yesterday she underwent upper endoscopy to evaluate for blood in stool which was reported as mostly dark. He with findings of mild antral erosive gastritis. No evidence of acute upper GI bleed. Patient states no abdominal pain, nausea or vomiting. States she is feeling better. She did have a loose bowel movement this morning reports that it was still on the darker side. She did have a drop in her hemoglobin again to 9.4 from 10.9 yesterday. Last colonoscopy June 2024 and EGD. Colonoscopy significant for polypectomy. No bleeding noted On upper endoscopy or colonoscopy. Objective - Vital Signs Vital signs: Vital Signs Temp 97.7 F 12/18/24 07:04 Pulse 88 12/18/24 07:04 Resp 16 12/18/24 07:04 BP 124/72 12/18/24 07:04 Pulse Ox 92 L 12/18/24 07:04 FiO2 Intake & Output 12/17/24 12/18/24 12/18/24 18:59 06:59 18:59 Intake Total 50 250 Balance 50 250 Intake: IV 50 Oral 250 Other: Voiding Method Diaper Diaper Incontinent Incontinent # Voids 3 - Exam General appearance: The patient is alert, oriented, appears in no acute distress. HET: Head is normocephalic and atraumatic. Conjunctiva pink. Sclera anicteric. Neck: Supple without lymphadenopathy. Abdomen: Soft, nontender, nondistended. Extremities: Normal skin color and turgor. No pedal edema Skin: No rashes, no jaundice Neurological: No focal deficits. Alert and oriented. - Labs CBC & Chem 7: 12/18/24 05:39 12/18/24 05:39 Labs: Abnormal Lab Results - Last 24 Hours (Table) 12/18/24 12/18/24 Range/Units 05:39 05:39 RBC 3.20 L (4.10-5.20) X 10*6/uL Hgb 9.4 L (12.0-15.0) g/dL Hct 29.6 L (37.2-46.3) % MCHC 31.8 L (32.0-37.0) g/dL Chloride 112 H (96-109) mmol/L BUN 6.0 L (9.0-27.0) mg/dL BUN/Creatinine Ratio 7.50 L (12.00-20.00) Ratio Magnesium 1.2 L (1.5-2.4) mg/dL Assessment and Plan (1) GI bleed Narrative/Plan: 74-year-old female with history of diverticulitis/colitis, IBS presenting with acute onset of diarrhea with multiple episodes of watery dark stool with some bright red blood per patient associated with some mild lower abdominal cramping. Abdomen pelvis CTA with fluid-filled large bowel possible colitis versus diarrh ea. Need to consider possible infectious versus inflammatory colitis with previous history colitis. Symptoms now resolved Including diarrhea and bleeding. Continue IV antibiotics, leukocytosis resolved. Will request EGD and colonoscopy report from June. Patient underwent upper endoscopy with findings of mild antral gastritis. Recommend Protonix 40 mg twice daily. Continues to have drop in hemoglobin, recommend small bowel capsule endoscopy and patient is agreeable. Will plan for this afternoon. Outpatient follow-up. Current Visit: No Status: Acute Code(s): K92.2 - GASTROINTESTINAL HEMORRHAGE, UNSPECIFIED SNOMED Code(s): 23598726 (2) Acute diarrhea Current Visit: No Status: Acute Code(s): R19.7 - DIARRHEA, UNSPECIFIED SNOMED Code(s): 861748953 (3) Leukocytosis Narrative/Plan: Resolved Current Visit: Yes Status: Acute Code(s): D72.829 - ELEVATED WHITE BLOOD CELL COUNT, UNSPECIFIED SNOMED Code(s): 710854550 Plan: 1. Continue symptomatic and supportive care 2. Continue Protonix 40 mg twice daily 3. N.p.o. for small bowel capsule endoscopy. 4. Please obtain stool for C. difficile and stool culture 5. Patient is post upper endoscopy. Will plan for small bowel capsule endoscopy this afternoon. 6. Give magnesium citrate Thank you for this consultation, patient to follow-up with gastroenterology next week for capsule endoscopy results. There will be no further gastroenterology coverage at the hospital. We will sign off at this time. Dr. Judi Tony I agree with the dictator's note, documented as a scribe by Dayan Fuller.
[2024-12-18] MEDS ORDERED: ACETAMINOPHEN TAB 325 MG TAB PO PRN (12:58)
--- NOTE | 2024-12-18 14:54 | P.PN ---
Subjective Progress Note Date: 12/18/24 Hospital course: Patient is a very pleasant 79-year-old male with a past medical history of previous GI bleed, diverticulitis with chronic intermittent diarrhea, hypertension, hyperlipidemia, hypothyroidism, fibromyalgia, breast cancer status post left mastectomy followed by chemo therapy and radiation, cervical cancer status post hysterectomy, liver cirrhosis, anxiety with depression, chronic back pain, and neuropathy bilateral hands and feet. She presented to the emergency department status post syncopal episode. Patient reports she went to the restroom and felt cramping pain in her abdomen followed by multiple episodes of diarrhea with maroon-colored blood and blood clots resulting in dizziness with severe diaphoresis and a syncopal episode. Upon arrival to our facility, patient underwent evaluation in the emergency department. Vital signs upon arrival show blood pressure 85/74, heart rate 110, respiratory rate 18, temp 97.4 F, and SpO2 of 94% on room air. Labs completed and reviewed. CBC showing leukocytosis with WBC count of 11.28 and elevated hemoglobin of 16.2 with hematocrit of 47.7. Coagulation profile showing a low PTT of 20.8 otherwise normal findings. BMP showing high anion gap metabolic acidosis with chloride of 106, bicarb of 12, and anion gap of 21 along with acute kidney injury with BUN of 23, creatinine of 1.39, GFR of 38. Blood glucose was 158. Liver profile showing elevated alkaline phosphatase of 137 otherwise normal findings. Troponin was negative at less than 0.012. CTA abdomen and pelvis was completed showing moderate hiatal hernia with patulous fluid-filled esophagus, fluid- filled large bowel suggestive of colitis and mildly nodular morphology of the liver correlate for cirrhosis. Physical exam: Patient was seen and fully evaluated at bedside this morning. She was resting comfortably in bed at this time. She denies having any further episodes of burgundy colored stools, but does report having liquid dark brown to black diarrhea x 2 episodes this morning. She denies having any abdominal pain or cramping, dizziness, lightheadedness, nausea, vomiting, or any other complaints at this time. Vital signs reviewed and stable with the exception of soft blood pressure of 95/57 with heart rate of 73. General: Nontoxic, no distress and appears stated age. Derm: Skin warm and dry, normal coloration for ethnicity. Head: Atraumatic, normocephalic and symmetric. Eyes: EOM's intact, no lid lag, and anicteric sclera Mouth: no lip lesions, mucus membranes moist Cardiovascular: regular rate and rhythm with normal S1S2, no murmur, positive posterior tibial pulses bilaterally, and cap refill < 2 seconds. Lungs: Respirations even, regular, and unlabored on room air. Lungs CTA bilaterally, no rhonchi, no rales, no wheezing, and no accessory muscle usage. Abdominal: soft, nontender to palpation, no guarding, no appreciable orga nomegaly Ext: ROM intact. No gross muscle atrophy, no edema, no contractures Neuro: Speech clear, face symmetrical and CN II-XII grossly intact with no noted focal neuro deficits Psych: Alert and oriented to person, place, time, and situation. Appropriate and pleasant affect. Assessment and Plan of Care: Acute GI bleed Acute blood loss anemia, secondary to above Colitis Leukocytosis Sepsis on arrival as evidenced by leukocytosis, hypotension and tachycardia -Gastroenterology following called to discuss continued decrease in hemoglobin and reports of dark brown/black diarrhea with gastroenterology STERILE TECH. Stated patient will be taken down for small bowel capsule endoscopy later today. -Hemoglobin trended initially 16.2 with current hemoglobin of 10.9. -Continue Protonix 40 mg IV twice daily -Telemetry monitoring. -Continue IV antibiotics with Rocephin 1 g every 24 hours and Flagyl 500 mg every 8 hours. -Symptomatic care and pain management with Zofran 4 mg IVP every 8 hours as needed for nausea or vomiting and morphine 4 mg IVP every 4 hours as needed for pain. - Follow-up on stool culture and C. difficile Hypomagnesemia Magnesium 1.2. Orders placed for magnesium sulfate 4 g IVPB. Will continue to monitor closely with repeat a.m. labs and replace any abnormal electrolyte findings as needed based upon these results. Acute kidney injury. Resolved with IV fluid hydration. Hypercalcemia. Resolved with IV fluid hydration. Hypertension Monitor vital signs and continue daily medication regimen with lisinopril 5 mg daily. Hypothyroidism Continue daily medication regimen with levothyroxine 25 mcg daily. Anxiety with depression Continue Effexor 75 mg daily and Seroquel 50 mg nightly. Data and imaging reviewed: Morning labs reviewed. CBC has been trended showing consistent downtrending resulting at 16.2, 14.0, 13.6, 11.3, 10.9, and again this morning of 9.4. BMP showing hyperchloremia chloride of 112. Blood glucose 92. Magnesium was low at 1.2. Vital signs reviewed. Blood pressure 24/72, heart rate 88, respiratory rate 16, temp 97.7 F, and SpO2 of 92% on room air. CODE STATUS: Full code DVT prophylaxis: MARCIO gonzalez and SCDs Anticipated discharge date: Pending clinical course Anticipated discharge place: Home Patient was seen independently by Nurse Pracitioner. This document was prepared using [employer] dictation software. Please allow for errors in retail field supervisor, while rare they do occur. Jad Woodruff NP rendered care for this patient independently, reviewed the findings and plan as documented in the note above and agree with plan. I did not physically speak with or examine the patient on this date. Objective - Vital Signs Vital signs: Vital Signs Temp 97.7 F 12/18/24 07:04 Pulse 88 12/18/24 07:04 Resp 16 12/18/24 07:04 BP 124/72 12/18/24 07:04 Pulse Ox 92 L 12/18/24 07:04 FiO2 Intake & Output 12/17/24 12/18/24 12/18/24 18:59 06:59 18:59 Intake Total 50 250 Balance 50 250 Intake: IV 50 Oral 250 Other: Voiding Method Diaper Diaper Incontinent Incontinent # Voids 3 - Labs CBC & Chem 7: 12/18/24 05:39 12/18/24 05:39 Labs: Abnormal Lab Results - Last 24 Hours (Table) 12/18/24 12/18/24 Range/Units 05:39 05:39 RBC 3.20 L (4.10-5.20) X 10*6/uL Hgb 9.4 L (12.0-15.0) g/dL Hct 29.6 L (37.2-46.3) % MCHC 31.8 L (32.0-37.0) g/dL Chloride 112 H (96-109) mmol/L BUN 6.0 L (9.0-27.0) mg/dL BUN/Creatinine Ratio 7.50 L (12.00-20.00) Ratio Magnesium 1.2 L (1.5-2.4) mg/dL
[2024-12-18] MEDS: SIMETHICONE 40 MG/0.6 ML DROPS 2,000 MG/30 ML BOTTLE PO ONE (15:00)
[2024-12-19] MEDS: HYDROcodone/APAP 5-325MG 1 EACH TAB PO PRN (03:26)
[2024-12-19 09:36] LABS: Anion Gap 7.70 mmol/L (4.00-12.00); BUN/Creat Ratio 8.33 Ratio (12.00-20.00); Blood Urea Nitrogen 5.0 mg/dL (9.0-27.0); Calcium 9.0 mg/dL (8.7-10.3); Carbon Dioxide 23.3 mmol/L (21.6-31.8); Chloride 112 mmol/L (96-109); Glucose 107 mg/dL (70-110); HCT 30.2 % (37.2-46.3); HGB 9.6 g/dL (12.0-15.0); MCH 29.4 pg (27.0-32.0); MCHC 31.8 g/dL (32.0-37.0); MCV 92.4 FL (80.0-97.0); Magnesium 1.6 mg/dL (1.5-2.4); NRBC Per 100 WBC 0 X 10*3/uL (0.00-0.01); Platelet Count 172 X 10*3/uL (140-440); Potassium 3.8 mmol/L (3.5-5.5); RBC 3.27 X 10*6/uL (4.10-5.20); RDW 13.0 % (11.5-14.5); Sodium 143 mmol/L (135-145); WBC 3.82 X 10*3/uL (4.50-10.00)
--- NOTE | 2024-12-19 13:12 | P.PN ---
Subjective Progress Note Date: 12/19/24 Hospital Course: Patient is a very pleasant 79-year-old male with a past medical history of previous GI bleed, diverticulitis with chronic intermittent diarrhea, hypertension, hyperlipidemia, hypothyroidism, fibromyalgia, breast cancer status post left mastectomy followed by chemo therapy and radiation, cervical cancer status post hysterectomy, liver cirrhosis, anxiety with depression, chronic back pain, and neuropathy bilateral hands and feet. She presented to the emergency department status post syncopal episode. Patient reports she went to the restroom and felt cramping pain in her abdomen followed by multiple episodes of diarrhea with maroon-colored blood and blood clots resulting in dizziness with severe diaphoresis and a syncopal episode. Upon arrival to our facility, patient underwent evaluation in the emergency department. Vital signs upon arrival show blood pressure 85/74, heart rate 110, respiratory rate 18, temp 97.4 F, and SpO2 of 94% on room air. Labs completed and reviewed. CBC showing leukocytosis with WBC count of 11.28 and elevated hemoglobin of 16.2 with hematocrit of 47.7. Coagulation profile showing a low PTT of 20.8 otherwise normal findings. BMP showing high anion gap metabolic acidosis with chloride of 106, bicarb of 12, and anion gap of 21 along with acute kidney injury with BUN of 23, creatinine of 1.39, GFR of 38. Blood glucose was 158. Liver profile showing elevated alkaline phosphatase of 137 otherwise normal findings. Troponin was negative at less than 0.012. CTA abdomen and pelvis was completed showing moderate hiatal hernia with patulous fluid-filled esophagus, fluid- filled large bowel suggestive of colitis and mildly nodular morphology of the liver correlate for cirrhosis. Physical Exam: Patient was seen and fully evaluated at bedside this morning. She was resting comfortably in bed at this time. Discussed with patient that hemoglobin has stabilized over the past 24 hours and initial plan was for discharge home. However patient reports dizziness/lightheadedness and feeling very weak today. Patient was ambulated by nursing staff and RN reports patient unsteady. Patient denies having any changes in vision or hearing, chest pain, palpitations, shortness of breath, nausea or vomiting, or experiencing any numbness/tingling/weakness/swelling in her extremities. She denies having any further episode of blood in her stool and reports continued diarrhea but her stool is less black and more brown in color now. Vital signs reviewed and stable with the exception of soft blood pressure of 95/57 with heart rate of 73. General: Nontoxic, no distress and appears stated age. Derm: Skin warm and dry, normal coloration for ethnicity. Head: Atraumatic, normocephalic and symmetric. Eyes: EOM's intact, no lid lag, and anicteric sclera Mouth: no lip lesions, mucus membranes moist Cardiovascular: regular rate and rhythm with normal S1S2, no murmur, positive posterior tibial pulses bilaterally, and cap refill < 2 seconds. Lungs: Respirations even, regular, and unlabored on room air. Lungs CTA bilaterally, no rhonchi, no rales, no wheezing, and no accessory muscle usage. Abdominal: soft, nontender to palpation, no guarding, no appreciable organomegaly Ext: ROM intact. No gross muscle atrophy, no edema, no contractures Neuro: Speech clear, face symmetrical and CN II-XII grossly intact with no noted focal neuro deficits Psych: Alert and oriented to person, place, time, and situation. Appropriate and pleasant affect. Assessment and Plan of Care: Acute GI bleed Acute blood loss anemia, secondary to above Dizziness//lightheadedness, likely secondary to symptomatic anemia Colitis Leukocytosis Sepsis on arrival as evidenced by leukocytosis, hypotension and tachycardia - Gastroenterology evaluated took patient for EGD showing gastritis small bowel capsule endoscopy was done on 12/18/2024 - Hemoglobin trended initially 16.2 with current hemoglobin of 9.6. (Hemoglobin no longer downtrending and has stabilized over the past 24 hours with yesterday morning hemoglobin of 9.4 and this morning 9.6) - Continue Protonix 40 mg IV twice daily - Telemetry monitoring. - IV antibiotics discontinued after 4-day course as recommended by [facility]. - Symptomatic care and pain management with Zofran 4 mg IVP every 8 hours as needed for nausea or vomiting and morphine 4 mg IVP every 4 hours as needed for pain. - C. difficile negative. - Fall precautions placed. - Order placed for orthostatic vitals. Hypomagnesemia Magnesium 1.6. Orders placed for magnesium oxide 400 mg p.o. x 1 dose. Will continue to monitor closely with repeat a.m. labs and replace any abnormal electrolyte findings as needed based upon these results. Acute kidney injury. Resolved with IV fluid hydration. Hypercalcemia. Resolved with IV fluid hydration. Hypertension Monitor vital signs and continue daily medication regimen with lisinopril 5 mg daily. Hypothyroidism Continue daily medication regimen with levothyroxine 25 mcg daily. Anxiety with depression Continue Effexor 75 mg daily and Seroquel 50 mg nightly. Data and imaging reviewed: Morning labs reviewed. Hemoglobin no longer downtrending and has stabilized over the past 24 hours with yesterday morning hemoglobin of 9.4 and this morning 9.6. BMP showing hyperchloremia with chloride of 112 otherwise normal findings. Blood glucose 107. Magnesium 1.6 Vital signs reviewed. Blood pressure 110/70, heart rate 58, respiratory rate 20, temp 98.0 F, and SpO2 of 100% on room air. CODE STATUS: Full code DVT prophylaxis: MARCIO gonzalez and SCDs Anticipated discharge date: Pending clinical course Anticipated discharge place: Home Patient was seen independently by Nurse Pracitioner. This document was prepared using [employer] dictation software. Please allow for errors in rn palliative care, while rare they do occur. Jad Woodruff NP rendered care for this patient independently, reviewed the findings and plan as documented in the note above and agree with plan. I did not physically speak with or examine the patient on this date. Objective - Vital Signs Vital signs: Vital Signs Temp 98 F 12/19/24 08:00 Pulse 66 12/19/24 08:00 Resp 20 12/19/24 08:00 BP 92/56 12/19/24 08:00 Pulse Ox 100 12/19/24 08:00 FiO2 Intake & Output 12/18/24 12/19/24 12/19/24 18:59 06:59 18:59 Intake Total 540 590 Balance 540 590 Intake: Oral 540 590 Other: Voiding Method Diaper Diaper Diaper Incontinent Incontinent Incontinent # Voids 2 # Bowel Movements 1 1 - Labs CBC & Chem 7: 12/19/24 06:49 12/19/24 06:49
[2024-12-19] MEDS: MAGNESIUM OXIDE 400 MG TAB PO STA (13:25)
[2024-12-19 20:04] VITALS: RESP 16
[2024-12-20 09:23] LABS: HCT 32.9 % (37.2-46.3); HGB 10.4 g/dL (12.0-15.0); MCH 29.2 pg (27.0-32.0); MCHC 31.6 g/dL (32.0-37.0); MCV 92.4 FL (80.0-97.0); NRBC Per 100 WBC 0 X 10*3/uL (0.00-0.01); Platelet Count 187 X 10*3/uL (140-440); RBC 3.56 X 10*6/uL (4.10-5.20); RDW 12.9 % (11.5-14.5); WBC 3.83 X 10*3/uL (4.50-10.00)
[2024-12-20 10:16] LABS: Anion Gap 8.60 mmol/L (4.00-12.00); BUN/Creat Ratio 9.17 Ratio (12.00-20.00); Blood Urea Nitrogen 5.5 mg/dL (9.0-27.0); Calcium 9.1 mg/dL (8.7-10.3); Carbon Dioxide 25.4 mmol/L (21.6-31.8); Chloride 111 mmol/L (96-109); Glucose 99 mg/dL (70-110); Magnesium 1.4 mg/dL (1.5-2.4); Potassium 3.7 mmol/L (3.5-5.5); Sodium 145 mmol/L (135-145)
[2024-12-20] MEDS: MAGNESIUM SULFATE-D5W PMX 1 GM in DEXTROSE/WATER 1 100ML.BAG IVPB SCH (10:29)
[2024-12-20] MEDS: MAGNESIUM OXIDE 400 MG TAB PO STA (10:29)
[2024-12-20 13:23] VITALS: BP 136/77; PULSE 61; TEMP 98.5
--- NOTE | 2024-12-20 13:33 | P.DS ---
Providers Date of admission: 12/15/24 20:12 Expected date of discharge: 12/20/24 Attending physician: Yelena Best MD Consults: 12/15/24 20:10 Consult Physician Urgent Consulting Provider: Annette Tony Consult Reason/Comments: lower gi hemorrhage Do you want consulting provider notified?: Yes Primary care physician: Jose M [address] Hospital Course: Discharge Diagnosis: Acute GI bleed. Patient underwent EGD showing mild gastritis and was taken for small bowel capsule endoscopy on 12/18/2024. Patient cleared from gastroenterology perspective. To continue Protonix 40 mg twice daily and to follow-up outpatient with PCP in 1 to 2 days and with procedures rn next week. Acute blood loss anemia, secondary to above. Hemoglobin stable on discharge at 10.4. Dizziness//lightheadedness, likely secondary to symptomatic anemia. Resolved Colitis. IV antibiotics discontinued after 4-day course as recommended by gastroenterology. Leukocytosis. Resolved Sepsis on arrival as evidenced by leukocytosis, hypotension and tachycardia Hypomagnesemia. Replaced Acute kidney injury. Resolved with IV fluid hydration. Hypercalcemia. Resolved with IV fluid hydration. Hypertension. Monitor vital signs and continue daily medication regimen with lisinopril 5 mg daily. Hypothyroidism. Continue daily medication regimen with levothyroxine 25 mcg daily. Anxiety with depression. Continue Effexor 75 mg daily and Seroquel 50 mg nightly. Hospital Course: Patient is a very pleasant 79-year-old male with a past medical history of previous GI bleed, diverticulitis with chronic intermittent diarrhea, hypertension, hyperlipidemia, hypothyroidism, fibromyalgia, breast cancer status post left mastectomy followed by chemo therapy and radiation, cervical cancer status post hysterectomy, liver cirrhosis, anxiety with depression, chronic back pain, and neuropathy bilateral hands and feet. She presented to the emergency department status post syncopal episode. Patient reports she went to the restroom and felt cramping pain in her abdomen followed by multiple episodes of diarrhea with maroon-colored blood and blood clots resulting in dizziness with severe diaphoresis and a syncopal episode. Upon arrival to our facility, patient underwent evaluation in the emergency department. Vital signs upon arrival show blood pressure 85/74, heart rate 110, respiratory rate 18, temp 97.4 F, and SpO2 of 94% on room air. Labs completed and reviewed. CBC showing leukocytosis with WBC count of 11.28 and elevated hemoglobin of 16.2 with hematocrit of 47.7. Coagulation profile showing a low PTT of 20.8 otherwise normal findings. BMP showing high anion gap metabolic acidosis with chloride of 106, bicarb of 12, and anion gap of 21 along with acute kidney injury with BUN of 23, creatinine of 1.39, GFR of 38. Blood glucose was 158. Liver profile showing elevated alkaline phosphatase of 137 otherwise normal findings. Troponin was negative at less than 0.012. CTA abdomen and pelvis was completed showing moderate hiatal hernia with patulous fluid-filled esophagus, fluid- filled large bowel suggestive of colitis and mildly nodular morphology of the liver correlate for cirrhosis. Patient was admitted under services with consultation to gastroenterology. She was taken for an EGD showing mild gastritis and later for small bowel capsule endoscopy and cleared from gastroenterology perspective for discharge. C. difficile PCR negative and stool culture positive for yeast, likely normal mario. Patient's hemoglobin levels have stabilized and currently 10.4. Patient reports also having significant improvement of previous reported diarrhea and denies having any complaints including dizziness, lightheadedness, chest pain, palpitations, shortness of breath or experiencing any abdominal pain, nausea, or vomiting. She is tolerating a regular diet. Vital signs stable. Orthostatic vitals negative. Patient medically optimized for discharge and to follow-up outpatient with PCP in 1 to 2 days and with procedures rn in 1 week. Physical Exam: Vital signs reviewed and stable with the exception of soft blood pressure of 95/57 with heart rate of 73. General: Nontoxic, no distress and appears stated age. Derm: Skin warm and dry, normal coloration for ethnicity. Head: Atraumatic, normocephalic and symmetric. Eyes: EOM's intact, no lid lag, and anicteric sclera Mouth: no lip lesions, mucus membranes moist Cardiovascular: regular rate and rhythm with normal S1S2, no murmur, positive posterior tibial pulses bilaterally, and cap refill < 2 seconds. Lungs: Respirations even, regular, and unlabored on room air. Lungs CTA bilaterally, no rhonchi, no rales, no wheezing, and no accessory muscle usage. Abdominal: soft, nontender to palpation, no guarding, no appreciable organomegaly Ext: ROM intact. No gross muscle atrophy, no edema, no contractures Neuro: Speech clear, face symmetrical and CN II-XII grossly intact with no noted focal neuro deficits Psych: Alert and oriented to person, place, time, and situation. Appropriate and pleasant affect. A total of 36 minutes of time were spent preparing this complex discharge summary. Pt was discharged on 12/20/2024 and 1:31 PM. Patient was seen independently by Nurse Practitioner. This document was prepared using [employer] dictation software. Please allow for errors in pipe and tank fabricator while rare they do occur. Jad Woodruff NP rendered care for this patient independently, reviewed the findings and plan as documented in the note above. I did not physically speak with or examine the patient on this date. Patient Condition at Discharge: Stable Plan - Discharge Summary Discharge Rx Participant: No New Discharge Prescriptions: Continue Ondansetron Odt [Zofran ODT] 4 mg PO Q8HR PRN PRN Reason: Nausea Levothyroxine Sodium [Synthroid] 25 mcg PO DAILY Gabapentin [Neurontin] 300 mg PO BID Pantoprazole Sodium [Protonix] 40 mg PO BID lisinopriL [Zestril] 5 mg PO DAILY hydrOXYzine HCL 25 mg PO TID Venlafaxine HCl [Effexor XR] 75 mg PO DAILY QUEtiapine [SEROquel] 50 mg PO HS Discontinued [id number] [Excedrin] 2 tab PO BID PRN PRN Reason: Migraine Headache Discharge Medication List Pantoprazole Sodium [Protonix] 40 mg PO BID 10/12/24 [History] Gabapentin [Neurontin] 300 mg PO BID 12/16/24 [History] Levothyroxine Sodium [Synthroid] 25 mcg PO DAILY 12/16/24 [History] Ondansetron Odt [Zofran ODT] 4 mg PO Q8HR PRN 12/16/24 [History] QUEtiapine [SEROquel] 50 mg PO HS 12/16/24 [History] Venlafaxine HCl [Effexor XR] 75 mg PO DAILY 12/16/24 [History] hydrOXYzine HCL 25 mg PO TID 12/16/24 [History] lisinopriL [Zestril] 5 mg PO DAILY 12/16/24 [History] Follow up Appointment(s)/Referral(s): Jose M Abreu DO [Primary Care Provider] - 1-2 days Annette Tony MD [STAFF PHYSICIAN] - 1 Week Patient Instructions/Handouts: Gastrointestinal Bleeding (DC), Diverticulitis Diet (DC), Colitis (ED), Capsule Endoscopy (DC) Activity/Diet/Wound Care/Special Instructions: Activity: As tolerated. Take breaks as needed. Diet: Follow diverticulitis diet. Special Instructions: Take all of your medications as directed and remember to keep all of your doctor's appointments and follow-up as needed. As we discussed, recommend daily magnesium supplement was going to send prescription but you stated you already have at home. You will need to follow- up with Dr. Tony next week in her office and recommend outpatient follow-up with your PCP, Dr. Abreu in 1 to 2 days. Thank you for allowing us to participate in your care, it was truly a pleasure having you for our patient!!! Discharge Disposition: HOME SELF-CARE
--- NOTE | 2024-12-20 13:42 | P.PN ---
Subjective Progress Note Date: 12/20/24 Hospital Course: Patient is a very pleasant 79-year-old male with a past medical history of previous GI bleed, diverticulitis with chronic intermittent diarrhea, hypertension, hyperlipidemia, hypothyroidism, fibromyalgia, breast cancer status post left mastectomy followed by chemo therapy and radiation, cervical cancer status post hysterectomy, liver cirrhosis, anxiety with depression, chronic back pain, and neuropathy bilateral hands and feet. She presented to the emergency department status post syncopal episode. Patient reports she went to the restroom and felt cramping pain in her abdomen followed by multiple episodes of diarrhea with maroon-colored blood and blood clots resulting in dizziness with severe diaphoresis and a syncopal episode. Upon arrival to our facility, patient underwent evaluation in the emergency department. Vital signs upon arrival show blood pressure 85/74, heart rate 110, respiratory rate 18, temp 97.4 F, and SpO2 of 94% on room air. Labs completed and reviewed. CBC showing leukocytosis with WBC count of 11.28 and elevated hemoglobin of 16.2 with hematocrit of 47.7. Coagulation profile showing a low PTT of 20.8 otherwise normal findings. BMP showing high anion gap metabolic acidosis with chloride of 106, bicarb of 12, and anion gap of 21 along with acute kidney injury with BUN of 23, creatinine of 1.39, GFR of 38. Blood glucose was 158. Liver profile showing elevated alkaline phosphatase of 137 otherwise normal findings. Troponin was negative at less than 0.012. CTA abdomen and pelvis was completed showing moderate hiatal hernia with patulous fluid-filled esophagus, fluid- filled large bowel suggestive of colitis and mildly nodular morphology of the liver correlate for cirrhosis. Patient was admitted under services with consultation to gastroenterology. She was taken for an EGD showing mild gastritis and later for small bowel capsule endoscopy and cleared from gastroenterology perspective for discharge. C. difficile PCR negative and stool culture positive for yeast, likely normal mario. Her hemoglobin levels have stabilized and currently 10.4. Magnesium again low this morning at 1.4 requiring IV replacement. Plan is for discharge after completion of magnesium. Physical Exam: Patient was seen and fully evaluated at bedside this morning. Appeared to be doing well this morning. She reports resolution of previous reported dizziness/lightheadedness. She states her diarrhea has significantly improved and she has only had 3 episodes in the past 24 hours. Plan was for discharge home this morning as hemoglobin is stable and dizziness has resolved however we will need to replace magnesium and once replacement is completed patient to be discharged.. Vital signs reviewed and stable with the exception of soft blood pressure of 95/57 with heart rate of 73. General: Nontoxic, no distress and appears stated age. Derm: Skin warm and dry, normal coloration for ethnicity. Head: Atraumatic, normocephalic and symmetric. Eyes: EOM's intact, no lid lag, and anicteric sclera Mouth: no lip lesions, mucus membranes moist Cardiovascular: regular rate and rhythm with normal S1S2, no murmur, positive posterior tibial pulses bilaterally, and cap refill < 2 seconds. Lungs: Respirations even, regular, and unlabored on room air. Lungs CTA bilaterally, no rhonchi, no rales, no wheezing, and no accessory muscle usage. Abdominal: soft, nontender to palpation, no guarding, no appreciable organomegaly Ext: ROM intact. No gross muscle atrophy, no edema, no contractures Neuro: Speech clear, face symmetrical and CN II-XII grossly intact with no noted focal neuro deficits Psych: Alert and oriented to person, place, time, and situation. Appropriate and pleasant affect. Assessment and Plan of Care: Acute GI bleed Acute blood loss anemia, secondary to above Dizziness//lightheadedness, likely secondary to symptomatic anemia Colitis Leukocytosis Sepsis on arrival as evidenced by leukocytosis, hypotension and tachycardia - Gastroenterology evaluated took patient for EGD showing gastritis small bowel capsule endoscopy was done on 12/18/2024 - Hemoglobin trended initially 16.2 with current hemoglobin of 10.4 - Continue Protonix 40 mg IV twice daily - Telemetry monitoring. - IV antibiotics discontinued after 4-day course as recommended by g astroenterology. - Symptomatic care and pain management with Zofran 4 mg IVP every 8 hours as needed for nausea or vomiting and morphine 4 mg IVP every 4 hours as needed for pain. -Orthostatic vitals negative. - Fall precautions placed. Hypomagnesemia Magnesium 1.6. Orders placed for magnesium oxide 400 mg p.o. x 1 dose. Will continue to monitor closely with repeat a.m. labs and replace any abnormal electrolyte findings as needed based upon these results. Acute kidney injury. Resolved with IV fluid hydration. Hypercalcemia. Resolved with IV fluid hydration. Hypertension Monitor vital signs and continue daily medication regimen with lisinopril 5 mg daily. Hypothyroidism Continue daily medication regimen with levothyroxine 25 mcg daily. Anxiety with depression Continue Effexor 75 mg daily and Seroquel 50 mg nightly. Data and imaging reviewed: Morning labs reviewed. BC showing stable hemoglobin of 10.4. BMP showing mild hyperchloremia with chloride of 111 otherwise normal findings. Blood glucose 95. Magnesium was low at 1.4. Vital signs reviewed. Blood pressure 133/73, heart rate 68, respiratory rate 16, temp 97.8 F, and SpO2 of 94% on room air. Orthostatic vitals negative. CODE STATUS: Full code DVT prophylaxis: MARCIO gonzalez and SCDs Anticipated discharge date: Pending clinical course Anticipated discharge place: Home Patient was seen independently by Nurse Pracitioner. This document was prepared using [employer] dictation software. Please allow for errors in database administration project manager, while rare they do occur. Jad Woodruff NP rendered care for this patient independently, reviewed the findings and plan as documented in the note above and agree with plan. I did not physically speak with or examine the patient on this date. Objective - Vital Signs Vital signs: Vital Signs Temp 97.8 F 12/20/24 08:00 Pulse 68 12/20/24 01:58 Resp 16 12/20/24 08:00 BP 133/73 12/20/24 08:00 Pulse Ox 94 L 12/20/24 08:00 FiO2 Intake & Output 12/19/24 12/20/24 12/20/24 18:59 06:59 18:59 Intake Total 150 590 Balance 150 590 Intake: Intake, IV Titration 150 Amount cefTRIAXone 1 gm In 50 Sodium Chloride 0.9% 50 ml @ 100 mls/hr IVPB Q24HR [facility] Rx#:[id number] metroNIDAZOLE-NS PMX 500 100 mg In Saline 1 100ml.bag @ 100 mls/hr IVPB Q8HR [facility] Rx#:[id number] Oral 590 Other: Voiding Method Diaper Toilet Toilet Incontinent Diaper Diaper Incontinent Incontinent # Voids 3 - Labs CBC & Chem 7: 12/20/24 06:26 12/20/24 06:26 Labs: Abnormal Lab Results - Last 24 Hours (Table) 12/19/24 12/19/24 Range/Units 06:49 06:49 WBC 3.82 L (4.50-10.00) X 10*3/uL RBC 3.27 L (4.10-5.20) X 10*6/uL Hgb 9.6 L (12.0-15.0) g/dL Hct 30.2 L (37.2-46.3) % MCHC 31.8 L (32.0-37.0) g/dL Chloride 112 H (96-109) mmol/L BUN 5.0 L (9.0-27.0) mg/dL BUN/Creatinine Ratio 8.33 L (12.00-20.00) Ratio
== END 2024-12-20 14:15 | disposition home or self-care (01) | DRG 378 ==
LOC: EC 16:38 → 3SCARD 20:12 → OBSVTOIN 20:12 → 3SCARD 12-16 10:43 → 5NMEDONC 12-16 23:27
PROVIDERS: ADMIT Internal Medicine; ATTEND Internal Medicine
PROC: 0DJ08ZZ Inspection of Upper Intestinal Tract, Via Natural or Artificial Opening Endoscopic (ICD-10-PCS; principal; 2024-12-17 08:00)
PROC: 0DJ07ZZ Inspection of Upper Intestinal Tract, Via Natural or Artificial Opening (ICD-10-PCS; 2024-12-18)
DX: K25.0 Acute gastric ulcer with hemorrhage (principal); B15.9 Hepatitis A without hepatic coma; D62 Acute posthemorrhagic anemia; N17.9 Acute kidney failure, unspecified; B37.89 Other sites of candidiasis; E87.20 Acidosis, unspecified; K74.60 Unspecified cirrhosis of liver; M06.9 Rheumatoid arthritis, unspecified; E03.9 Hypothyroidism, unspecified; I10 Essential (primary) hypertension; F32.A Depression, unspecified; R65.10 Systemic inflammatory response syndrome (SIRS) of non-infectious origin without acute organ dysfunction; K58.9 Irritable bowel syndrome, unspecified; F41.8 Other specified anxiety disorders; K44.9 Diaphragmatic hernia without obstruction or gangrene; E78.5 Hyperlipidemia, unspecified; M79.7 Fibromyalgia; Z79.890 Hormone replacement therapy; E83.42 Hypomagnesemia; R00.0 Tachycardia, unspecified; I95.9 Hypotension, unspecified; E83.52 Hypercalcemia; F41.0 Panic disorder [episodic paroxysmal anxiety]; G62.9 Polyneuropathy, unspecified; F43.10 Post-traumatic stress disorder, unspecified; M81.0 Age-related osteoporosis without current pathological fracture; Z79.899 Other long term (current) drug therapy; Z82.49 Family history of ischemic heart disease and other diseases of the circulatory system; Z85.3 Personal history of malignant neoplasm of breast; Z85.41 Personal history of malignant neoplasm of cervix uteri; Z87.891 Personal history of nicotine dependence; Z90.12 Acquired absence of left breast and nipple; Z90.710 Acquired absence of both cervix and uterus; Z96.612 Presence of left artificial shoulder joint; Z95.818 Presence of other cardiac implants and grafts; Z88.2 Allergy status to sulfonamides; Z88.1 Allergy status to other antibiotic agents; Z91.040 Latex allergy status
CPT/HCPCS: 36415; 43235; 74174; 80048; 80053; 83735; 84484; 85025; 85027; 85610; 85730; 86850; 86900; 86901; 87045; 87046; 87324; 91110; 96361; 96365; 96366; 96368; 96375; 96376; 99285